=== PATIENT | female | born 1955 | race Caucasian/White ===

== ENCOUNTER 2019-10-13 04:47 | Inpatient (IN) ==
[2019-10-13 05:18] LABS: Basophils # (auto) 0.05 K/uL (0-0.2); Basophils % (auto) 0.6 %; Eosinophils # (auto) 0.34 K/uL (0-0.5); Eosinophils % (auto) 4.2 %; Hematocrit (blood only) 33.9 % (37-47); Immature Granulocytes # (auto) 0.02 K/uL (0.00-0.02); Immature Granulocytes % (auto) 0.2 %; Lymphocytes # (auto) 0.76 K/uL (1.2-3.4); Lymphocytes % (auto) 9.4 %; Mean Corpuscular Hemoglobin 27.3 pg (25-34); Mean Corpuscular Hgb Conc 29.5 g/dL (32-36); Mean Corpuscular Volume 92.6 fL (80-100); Mean Platelet Volume 9.9 fL (7.4-10.4); Monocytes # (auto) 0.59 K/uL (0.11-0.59); Monocytes % (auto) 7.3 %; Neutrophils # (auto) 6.29 K/uL (1.4-6.5); Neutrophils % (auto) 78.3 %; Nucleated RBC # (auto) 0.02 K/uL (0-0); Nucleated RBC % (auto) 0.3 %; Platelet Count 309 K/uL (130-400); RDW Coefficient of Variation 18.9 % (11.5-14.5); RDW Standard Deviation 64.2 fL (36.4-46.3); Red Blood Count 3.66 M/uL (4.2-5.4); White Blood Count 8.05 K/uL (4.8-10.8)
[2019-10-13 05:30] LABS: INR 2.1 (0.9-1.1); Partial Thromboplastin Ratio 1.2; Partial Thromboplastin Time 33.3 Seconds (21.0-31.0); Prothrombin Time 20.5 Seconds (9.0-12.0)
[2019-10-13 05:52] LABS: Alanine Aminotransferase 50 U/L (12-78); Albumin Level 2.9 gm/dl (3.4-5.0); Aspartate Aminotransferase 21 U/L (15-37); BUN Creatinine Ratio 23.1 (10-20); Blood Urea Nitrogen 64 mg/dl (7-18); Calcium 8.8 mg/dl (8.5-10.1); Carbon Dioxide 26 mmol/L (21-32); Chloride 100 mmol/L (98-107); Est GFR (Non-African American) 17.2; Glucose 99 mg/dl (70-99); Potassium 7.3 mmol/L (3.5-5.1); Sodium 131 mmol/L (136-145)
[2019-10-13 06:01] LABS: Albumin Globulin Ratio 0.7 (0.9-2); Alkaline Phosphatase 102 U/L (45-117); Bilirubin,Total 0.3 mg/dl (0.2-1); Globulin 4.2 gm/dl (2.5-4.0); NT Pro B Type Natriuretic Pept 7187 pg/ml (0-900); Total Protein 7.1 gm/dl (6.4-8.2); Troponin I < 0.015 ng/ml (0-0.045)
--- NOTE | 2019-10-13 06:10 | XRay Report ---
XR chest 1V portable CLINICAL HISTORY: Dyspnea COMPARISON STUDY: 08/02/2018 FINDINGS: Moderate cardiac enlargement. Parenchymal infiltrate medial right base. Components of pulmo nary vascular congestion. IMPRESSION: 1. Infiltrate medial right base. 2. Pulmonary vascular congestion versus mild congestive failure The above report was generated using voice recognition software. It may contain grammatical, syntax or spelling errors. Electronically signed by: Carlos Boyce M.D. 10/13/2019 6:08 AM
[2019-10-13] MEDS ORDERED: FUROSEMIDE 20 MG in SYRINGE 0 ML IV STA (06:38)
[2019-10-13] MEDS ORDERED: DEXTROSE 50% 50 ML SYRINGE IV STA ×2 (06:38→10:32)
[2019-10-13] MEDS ORDERED: INSULIN HUMAN REGULAR PER UNIT 10 UNITS in SYRINGE 9.9 ML IV STA ×2 (06:38→10:32)
--- NOTE | 2019-10-13 06:42 | Emergency Department Note ---
Entered by Kayy Vasquez acting as a scribe for History of Present Illness General Chief complaint: Shortness of Breath/Dyspnea Stated complaint: SHORT OF BREATH Time Seen by Provider: 10/13/19 04:50 History of Present Illness Provider complaint: shortness of breath Onset (ago): day(s) 2 Location: chest Quality: + other (shortness of breath) Associated symptoms: + other (Positive lightheadedness); no chest pain Treatments prior to arrival: other (BiPAP) The patient, who is a 64 year old female with a medical history of sleep apnea, cerebral vascular accident, and asthma, presents to the Emergency Room with complaints of shortness of breath that started two days ago. EMS states that the patient complained of lightheadedness but remained awake and alert during tr ansport. EMS reports that the patient denies chest pain. The patient expresses that both of her hands feel "jumpy". EMS notes that the patient started off wheezy when they arrived to [facility] and then became raspy en route. EMS reports that when they arrived the patient was at 84% on 4L but once she was on BiPAP the patient reached the mid 90s. The patient confirms that she has been at [facility] for 14 months. Home Medications Home Medications Medication Instructions Recorded Confirmed Type amiodarone 200 mg PO Q12 08/02/18 10/13/19 History aspirin 81 mg PO HS 08/02/18 10/13/19 History atorvastatin 40 mg PO QPM 08/02/18 10/13/19 History calcium carbonate 1,075 mg PO Q8 PRN 08/02/18 10/13/19 History fluticasone propion-salmeterol 1 puff INHALATION BID 08/02/18 10/13/19 History [Advair Diskus] fluticasone propionate 2 spray INTRANASAL HS 08/02/18 10/13/19 History gabapentin 600 mg PO TID 08/02/18 10/13/19 History lisinopril 20 mg PO Q12 08/02/18 10/13/19 History magnesium oxide 400 mg PO QAM 08/02/18 10/13/19 History metformin 1,000 mg PO BIDM 08/02/18 10/13/19 History multivitamin with minerals 1 tab PO QAM 08/02/18 10/13/19 History [Multiple Vitamin-Minerals] sitagliptin [Januvia] 100 mg PO QAM 08/02/18 10/13/19 History Lactobacillus acidoph-L.bulgar 1 tab PO DAILY 10/13/19 10/13/19 History [Lactinex] acetaminophen [Tylenol] 325 mg PO Q6 PRN MDD 3gm/24hr 10/13/19 10/13/19 History acetaminophen [Tylenol] 325 mg PO Q6H PRN MDD 3gm/24hr 10/13/19 10/13/19 History albuterol sulfate [Ventolin HFA] 2 puff INHALATION Q4 PRN 10/13/19 10/13/19 History amoxicillin-pot clavulanate 1 tab PO BID 10/13/19 10/13/19 History carbamide peroxide [Debrox] 2 drp OTB UD 10/13/19 10/13/19 History insulin lispro [Humalog U-100 1 sliding scale dose SUBCUT 10/13/19 10/13/19 History Insulin] USEASDIRECTD PRN ipratropium-albuterol 3 ml INHALATION . EVERY 2 HOURS PRN 10/13/19 10/13/19 History ipratropium-albuterol 3 ml INHALATION QID 10/13/19 10/13/19 History levothyroxine 112 mcg PO QPM 10/13/19 10/13/19 History metoprolol tartrate 37.5 mg PO BID 10/13/19 10/13/19 History montelukast 10 mg PO QAM 10/13/19 10/13/19 History oxycodone 5 mg PO TID 10/13/19 10/13/19 History sennosides-docusate sodium 1 tab-cap PO BID 10/13/19 10/13/19 History [Senokot-S] warfarin 3 mg PO HS 10/13/19 10/13/19 History Allergies Allergy/AdvReac Type Severity Reaction Status Date / Time Iodinated Contrast Media Allergy Intermediate HIVES Verified 10/13/19 05:53 latex Allergy Unknown LOW LEVEL Verified 10/13/19 05:53 LATEX ALLERGY Quinolones Allergy Unknown DR HICKS Verified 10/13/19 05:53 ASKED THAT ALLERGY BE ADDED 07/31/08 Sulfa (Sulfonamide Allergy Unknown HIVES Verified 10/13/19 05:53 Antibiotics) vancomycin Allergy Unknown HIVES, GI Verified 10/13/19 05:53 UPSET Past Med/Surg History Medical History A-fib Asthma (Chronic) CVA (cerebral vascular accident) (Acute) DM type 2 (diabetes mellitus, type 2) (Chronic) History of left shoulder replacement (Acute) Hypertension (Chronic) Left cervical radiculopathy (Acute) Morbid obesity with body mass index of 50 or higher (Chronic) Osteoarthritis (Chronic) Sleep apnea (Chronic) "on cpap" Stroke-like symptoms Surgical History Status post bilateral total hip replacement (Chronic) Family History Other Family history non-contributory Social History Preferred Language: Rwandan Communication Ability: Effective Development And Housing Director Required: No Beliefs That Will Affect Care: None marital status: Single Current Living Situation: Alone Feels Safe at Home: Yes Smoking Status: Never smoker Hx Alcohol Use: No Hx Substance Use: No Review of Systems See HPI for pertinent positives & negatives. and A total of 10 systems reviewed and were otherwise negative Physical Exam Vital Signs Vital Signs - 24 hr 10/13/19 04:50 10/13/19 05:33 10/13/19 05:34 Temperature 36.6 C Temperature Source Oral Pulse Rate 52 L 56 L 51 L Pulse Rate from SpO2 Sensor 52 L 51 L Respiratory Rate 19 20 21 Blood Pressure 97/48 L 82/43 L 89/40 L Blood Pressure Mean 64 60 47 Pulse Oximetry 85 L 86 L 94 Oxygen Delivery Method Room Air Nasal Cannula Oxymask Oxygen Flow Rate 0 4 4 Sepsis Recent Fever Within 48 Hours No Sepsis New/Unexplained Change in Mental Status No Sepsis Action Taken by Nursing No Action Required Oxygen Flow Rate - Titration 4 Pulse Oximetry Post Tiitration 94 10/13/19 06:03 Temperature Temperature Source Pulse Rate 51 L Pulse Rate from SpO2 Sensor 51 L Respiratory Rate 21 Blood Pressure 103/55 L Blood Pressure Mean 76 Pulse Oximetry 94 Oxygen Delivery Method Oxymask Oxygen Flow Rate 4 Sepsis Recent Fever Within 48 Hours Sepsis New/Unexplained Change in Mental Status Sepsis Action Taken by Nursing Oxygen Flow Rate - Titration Pulse Oximetry Post Tiitration General: Morbidly obese female in moderate to severe respiratory distress especially when speaking HEENT: Head - normocephalic and atraumatic Pupils are equal, round, and reactive to light. Extraocular eye muscles are intact, and sclera are anicteric. Nose - moist nasal mucosa without discharge. Mouth - moist buccal mucosa. Oropharynx is nonerythematous and there is no tonsillar exudate or edema noted. Neck: Supple; no JVD, nuchal rigidity, cervical lymphadenopathy. Heart: Bradycardic rate and regular rhythm. There is a normal S1 and S2 with no murmurs, clicks, or gallops appreciated. Lungs: Diffuse rales in all lung fraser with minimal air exchange. Abdomen: Soft, completely nontender, nondistended, with good bowel sounds. There are no palpable pulsatile masses or hepatosplenomegaly. There is no guarding, rigidity, or rebound noted. Extremities: No evidence of cyanosis or clubbing. There are easily palpable peripheral pulses. Wound on the right lower extremity that she explains has been there for 16 years. + 3 to 4 pitting edema. Skin: warm and dry with good turgor and no rashes. Course Course 0456: Past medical records reviewed. The patient was evaluated in room A10. A complete history and physical exam was performed. A twelve-lead EKG was obtained as described above. The patient was observed on the air sampling and monitoring and pulse oximeter. She remained in a sinus bradycardia on the monitor. 0458: Oxygen dropped to 85% - 83% when she was taken off the oxygen. The patient will have a portable chest x-ray 0051: I reassessed the patient and noticed desaturation to 85% while on nasal cannula while she was sleeping. The patient was placed on an oxy- mask which has raised it back to 96%. 0519: I reviewed the patient's case with Dr. Barnett, [facility] hospitalist. He will evaluate the patient for further management. 0526: I reassessed the patient who's blood pressure was at a 103/55. The patient expresses that she feels much better. Consultations Consultation #1: I reviewed the patient's case with Dr. Barnett, [facility] hospitalist. He will evaluate the patient for further management. Time: 05:19 Critical Care Time Critical Care Time: Yes Total Critical Care Time: 45 I have personally spent 45 minutes of critical care time in the direct management of this patient. This includes bedside care, interpretation of diagnostic studies, and testing, discussion with consultants, patient, and family members, and other required patient management activities. This 45 minutes is in excess of all separately billable procedures. Medical Decision Making Differential Diagnosis Differential diagnosis includes: congestive heart failure, pulmonary embolism, flash pulmonary edema, as well as others were entertained. Medical Records Attestation: I reviewed the patient's medical records. Home Medications Current Medication List: was personally reviewed by me Laboratory Data Attestation: I reviewed the patient's lab results. Result diagrams: 10/13/19 04:23 10/13/19 04:23 Lab Results 10/13/19 10/13/19 10/13/19 Range/Units 04:23 04:23 04:23 WBC 8.05 (4.8-10.8) K/uL RBC 3.66 L (4.2-5.4) M/uL Hgb 10.0 L (12.0-16.0) g/dL Hct 33.9 L (37-47) % MCV 92.6 (80-100) fL MCH 27.3 (25-34) pg MCHC 29.5 L (32-36) g/dL RDW Std Deviation 64.2 H (36.4-46.3) fL RDW Coeff of Mehnaz 18.9 H (11.5-14.5) % Plt Count 309 (130-400) K/uL MPV 9.9 (7.4-10.4) fL Immature Gran % (Auto) 0.2 % Neut % (Auto) 78.3 % Lymph % (Auto) 9.4 % Miller % (Auto) 7.3 % Eos % (Auto) 4.2 % Baso % (Auto) 0.6 % Immature Gran # (Auto) 0.02 (0.00-0.02) K/uL Neut # (Auto) 6.29 (1.4-6.5) K/uL Lymph # (Auto) 0.76 L (1.2-3.4) K/uL Miller # (Auto) 0.59 (0.11-0.59) K/uL Eos # (Auto) 0.34 (0-0.5) K/uL Baso # (Auto) 0.05 (0-0.2) K/uL Absolute Nucleated RBC 0.02 H (0-0) K/uL Nucleated RBC % (auto) 0.3 % PT 20.5 H (9.0-12.0) Seconds INR 2.1 H (0.9-1.1) APTT 33.3 H (21.0-31.0) Seconds PTT Ratio 1.2 Sodium 131 L (136-145) mmol/L Potassium 7.3 H* (3.5-5.1) mmol/L Chloride 100 (98-107) mmol/L Carbon Dioxide 26 (21-32) mmol/L Anion Gap 7.0 (3-11) BUN 64 H (7-18) mg/dl Creatinine 2.77 H (0.6-1.2) mg/dl Est Cr Clr Drug Dosing Not Reportable Est GFR ( Amer) 20.0 Est GFR (Non-Af Amer) 17.2 BUN/Creatinine Ratio 23.1 H (10-20) Glucose 99 (70-99) mg/dl Calcium 8.8 (8.5-10.1) mg/dl Total Bilirubin 0.3 (0.2-1) mg/dl AST 21 (15-37) U/L ALT 50 (12-78) U/L Alkaline Phosphatase 102 (45-117) U/L Troponin I < 0.015 (0-0.045) ng/ml NT-Pro-B Natriuret Pep 7187 H (0-900) pg/ml Total Protein 7.1 (6.4-8.2) gm/dl Albumin 2.9 L (3.4-5.0) gm/dl Globulin 4.2 H (2.5-4.0) gm/dl Albumin/Globulin Ratio 0.7 L (0.9-2) Imaging Data Attestation: I personally reviewed and interpreted this imaging study as follows: My Impression: 1V Chest XRAY Comparison to July 2018 - significant pulmonary edema with cardiomegaly concerning for heart failure ECG Data Attestation: I personally reviewed and interpreted this ECG as follows: Indication: + SOB/dyspnea Rate (beats per minute): 52 Rhythm: + sinus bradycardia ECG Intervals/blocks: + First degree AV block ECG Findings: + Other (No ischemia; No ectopy) Blood Pressure Blood Pressure Findings: Elevated blood pressure Blood Pressure Disposition: Referred to patients primary care provider MDM Narrative The patient, who is a 64 year old female with a medical history of sleep apnea, cerebral vascular accident, and asthma, presents to the Emergency Room with complaints of shortness of breath that started two days ago. The patient has significant orthopnea and respiratory distress with speaking. On physical exam, the patient has diffuse rales within her lung fraser and significant lower extremity edema. The patient has a BNP greater than 7000. Her presentation seems consistent with congestive heart failure. Without supplemental oxygen, the patient has O2 saturations in the low 80s. The patient is noted to have a potassium greater than 7. She also has evidence of acute kidney injury with a creatinine which has doubled from her baseline. The patient is hemodynamically stable. I discussed the case with the [facility] Hospitalist and they will evaluate for further management. Impression & Plan Respiratory failure, Hypoxia, Pulmonary edema, Hyperkalemia Discharge Plan Visit Data Chief Complaint: Shortness of Breath/Dyspnea Stated Complaint: SHORT OF BREATH ED Provider: Adilene Azevedo Discharge Problem: Respiratory failure, Hypoxia, Pulmonary edema, Hyperkalemia Patient Disposition: Being Evaluated by Hospitalist Forms Stand Alone Forms: My [facility] Prescriptions Prescriptions: No Action fluticasone propion-salmeterol [Advair Diskus] 250-50 mcg/dose blister with device 1 puff Inhalation BID RF: 0 gabapentin 600 mg tablet 600 mg PO TID RF: 0 amiodarone 200 mg tablet 200 mg PO Q12 RF: 0 metformin 1,000 mg tablet 1,000 mg PO BIDM RF: 0 fluticasone propionate 50 mcg/actuation spray,suspension 2 spray Intranasal HS RF: 0 lisinopril 20 mg tablet 20 mg PO Q12 RF: 0 Januvia 100 mg tablet 100 mg PO QAM RF: 0 atorvastatin 40 mg tablet 40 mg PO QPM RF: 0 aspirin 81 mg Tablet,Delayed Release (Dr/Ec) 81 mg PO HS RF: 0 magnesium oxide 400 mg (241.3 mg magnesium) Tablet 400 mg PO QAM RF: 0 multivitamin with minerals [Multiple Vitamin-Minerals] Tablet 1 tab PO QAM RF: 0 calcium carbonate 320 mg calcium (750 mg) Tablet,Chewable 1,075 mg PO Q8 PRN (Reason: Dyspepsia) RF: 0 levothyroxine 112 mcg tablet 112 mcg PO QPM RF: 0 Lactinex 1 million cell Tablet,Chewable 1 tab PO DAILY RF: 0 montelukast 10 mg Tablet 10 mg PO QAM RF: 0 metoprolol tartrate 25 mg Tablet 37.5 mg PO BID RF: 0 oxycodone 5 mg tablet 5 mg PO TID RF: 0 warfarin 3 mg tablet 3 mg PO HS RF: 0 acetaminophen [Tylenol] 325 mg Tablet 325 mg PO Q6 MDD 3gm/24hr PRN (Reason: Pain) RF: 0 acetaminophen [Tylenol] 325 mg Tablet 325 mg PO Q6H MDD 3gm/24hr PRN (Reason: temp>100) RF: 0 sennosides-docusate sodium [Senokot-S] 8.6-50 mg Tablet 1 tab-cap PO BID RF: 0 amoxicillin-pot clavulanate 875-125 mg tablet 1 tab PO BID RF: 0 albuterol sulfate [Ventolin HFA] 90 mcg/actuation HFA aerosol inhaler 2 puff INHALATION Q4 PRN (Reason: Shortness Of Breath Or Wheezing) RF: 0 ipratropium-albuterol 0.5 mg-3 mg(2.5 mg base)/3 mL Solution For Nebulization 3 ml INHALATION QID RF: 0 ipratropium-albuterol 0.5 mg-3 mg(2.5 mg base)/3 mL Solution For Nebulization 3 ml INHALATION . EVERY 2 HOURS PRN (Reason: Shortness Of Breath Or Wheezing) RF: 0 insulin lispro [Humalog U-100 Insulin] 100 unit/mL Solution 1 sliding scale dose SUBCUT USEASDIRECTD PRN (Reason: elevated bs) RF: 0 carbamide peroxide [Debrox] 6.5 % Drops 2 drp OTB UD RF: 0 Referrals Referrals: Divide,Briseida [Primary Care Provider] - Discharge Problem: Respiratory failure Qualifiers: Chronicity: acute Respiratory failure complication: hypoxia Qualified Code(s): J96.01 - Acute respiratory failure with hypoxia Pulmonary edema Qualifiers: Chronicity: acute Qualified Code(s): J81.0 - Acute pulmonary edema The scribe's documentation has been prepared under my direction and personally reviewed by me in its entirety. I confirm that the note above accurately reflects all work, treatment, procedures, and medical decision making performed by me.
[2019-10-13] MEDS ORDERED: FUROSEMIDE 40 MG/4 ML VIAL IV ONE (06:44)
[2019-10-13] MEDS ORDERED: NovoLIN-R INSULIN PER UNIT CHARGE ONE (06:45)
--- NOTE | 2019-10-13 06:47 | History & Physical Report ---
Date of Service October 13, 2019 Assessment & Plan (1) Acute and chronic respiratory failure with hypoxia: Admit to PCU Maintained on oxygen mask currently Nebs ordered. Pulmonary edema noted on CXR Will check CT chest as patient had cough looking for underlying pneumonitis Check echo to evaluate EF. (2) Hyperkalemia: Lasix 20mg IV now Insulin 10 units with Dextrose recheck BMP in 4 hours (3) Acute kidney failure: Hold lisinopril Hold Metformin Place Heard to monitor urine output Check CT scan w/o to look for obstruction (4) Afib: Currently in NSR INR therapeutic at 2.1 daily INR Continue Amiodarone (5) DM type 2 (diabetes mellitus, type 2): ADA diet I ordered sliding scale for now. (6) Asthma: No obvious exacerbation Albuterol nebs q 4 hours prn Duonebs Q 6 hours scheduled. (7) Morbid obesity with body mass index of 50 or higher: History of Present Illness 64 y/o female is sent to the ED from [facility] due to SOB and hypoxia with reports of pox into the 70%. Patient tells me that she was having SOB throughout yesterday. No chest pain, No F/C, no N/V/D, No dysuria, No flu-like symptoms. + non-productive cough. She is found to have hyperkalemia with K of 7.3 and DIANNE with creat 2.77 with previous creat 1.1. She is therapeutic on warfarin with INR 2.1 Primary Care Provider: [facility] Allergies Allergy/AdvReac Type Severity Reaction Status Date / Time Iodinated Contrast Media Allergy Intermediate HIVES Verified 10/13/19 05:53 latex Allergy Unknown LOW LEVEL Verified 10/13/19 05:53 LATEX ALLERGY Quinolones Allergy Unknown DR HICSK Verified 10/13/19 05:53 ASKED THAT ALLERGY BE ADDED 07/31/08 Sulfa (Sulfonamide Allergy Unknown HIVES Verified 10/13/19 05:53 Antibiotics) vancomycin Allergy Unknown HIVES, GI Verified 10/13/19 05:53 UPSET Home Medications Home Medications Medication Instructions Recorded Confirmed Type amiodarone 200 mg PO Q12 08/02/18 10/13/19 History aspirin 81 mg PO HS 08/02/18 10/13/19 History atorvastatin 40 mg PO QPM 08/02/18 10/13/19 History calcium carbonate 1,075 mg PO Q8 PRN 08/02/18 10/13/19 History fluticasone propion-salmeterol 1 puff INHALATION BID 08/02/18 10/13/19 History [Advair Diskus] fluticasone propionate 2 spray INTRANASAL HS 08/02/18 10/13/19 History gabapentin 600 mg PO TID 08/02/18 10/13/19 History lisinopril 20 mg PO Q12 08/02/18 10/13/19 History magnesium oxide 400 mg PO QAM 08/02/18 10/13/19 History metformin 1,000 mg PO BIDM 08/02/18 10/13/19 History multivitamin with minerals 1 tab PO QAM 08/02/18 10/13/19 History [Multiple Vitamin-Minerals] sitagliptin [Januvia] 100 mg PO QAM 08/02/18 10/13/19 History Lactobacillus acidoph-L.bulgar 1 tab PO DAILY 10/13/19 10/13/19 History [Lactinex] acetaminophen [Tylenol] 325 mg PO Q6 PRN MDD 3gm/24hr 10/13/19 10/13/19 History acetaminophen [Tylenol] 325 mg PO Q6H PRN MDD 3gm/24hr 10/13/19 10/13/19 History albuterol sulfate [Ventolin HFA] 2 puff INHALATION Q4 PRN 10/13/19 10/13/19 History amoxicillin-pot clavulanate 1 tab PO BID 10/13/19 10/13/19 History carbamide peroxide [Debrox] 2 drp OTB UD 10/13/19 10/13/19 History insulin lispro [Humalog U-100 1 sliding scale dose SUBCUT 10/13/19 10/13/19 History Insulin] USEASDIRECTD PRN ipratropium-albuterol 3 ml INHALATION . EVERY 2 HOURS PRN 10/13/19 10/13/19 History ipratropium-albuterol 3 ml INHALATION QID 10/13/19 10/13/19 History levothyroxine 112 mcg PO QPM 10/13/19 10/13/19 History metoprolol tartrate 37.5 mg PO BID 10/13/19 10/13/19 History montelukast 10 mg PO QAM 10/13/19 10/13/19 History oxycodone 5 mg PO TID 10/13/19 10/13/19 History sennosides-docusate sodium 1 tab-cap PO BID 10/13/19 10/13/19 History [Senokot-S] warfarin 3 mg PO HS 10/13/19 10/13/19 History Past Med/Surg History Medical History A-fib Asthma (Chronic) CVA (cerebral vascular accident) (Acute) DM type 2 (diabetes mellitus, type 2) (Chronic) History of left shoulder replacement (Acute) Hypertension (Chronic) Left cervical radiculopathy (Acute) Morbid obesity with body mass index of 50 or higher (Chronic) Osteoarthritis (Chronic) Sleep apnea (Chronic) "on cpap" Stroke-like symptoms Surgical History Status post bilateral total hip replacement (Chronic) Family History Other Family history non-contributory Social History Preferred Language: Pashto Communication Ability: Effective Debug Technician Required: No Beliefs That Will Affect Care: None marital status: Single Current Living Situation: Alone Feels Safe at Home: Yes Smoking Status: Never smoker Hx Alcohol Use: No Hx Substance Use: No Review of Systems Review of Systems: All systems reviewed & are unremarkable except as noted in HPI & below Physical Exam Physical Exam: General- adult female, NAD Head- atraumatic Eyes- PERRL, EOMI, anicteric ENT- oropharynx clear Neck- supple, no JVD, no adenopathy, no thyromegaly. Lungs- Decreased breath sounds at the bases with few crackles in the lower fraser. Heart- regular rhythm; no murmur, no gallop, no rub appreciated Abdomen- normal bowel sounds, soft, nontender. Extremities- + 3 pitting edema b/l lower ext. no calf tenderness. Neuro- alert, oriented x 3; PERRL, EOMI; proposition player II-XII grossly intact, Non-focal. Skin- warm & dry Results & Data Vital Signs (Past 12 Hours) Vital Signs Temp Pulse Resp BP Pulse Ox 10/13/19 06:03 51 L 21 103/55 L 94 10/13/19 05:34 51 L 21 89/40 L 94 10/13/19 05:33 56 L 20 82/43 L 86 L 10/13/19 04:50 36.6 C 52 L 19 97/48 L 85 L Laboratory Results Laboratory Results WBC 8.05 K/uL (4.8-10.8) 10/13/19 04:23 RBC 3.66 M/uL (4.2-5.4) L 10/13/19 04:23 Hgb 10.0 g/dL (12.0-16.0) L 10/13/19 04:23 Hct 33.9 % (37-47) L 10/13/19 04:23 MCV 92.6 fL (80-100) 10/13/19 04:23 MCH 27.3 pg (25-34) 10/13/19 04:23 MCHC 29.5 g/dL (32-36) L 10/13/19 04:23 RDW Std Deviation 64.2 fL (36.4-46.3) H 10/13/19 04:23 RDW Coeff of Mehnaz 18.9 % (11.5-14.5) H 10/13/19 04:23 Plt Count 309 K/uL (130-400) 10/13/19 04:23 MPV 9.9 fL (7.4-10.4) 10/13/19 04:23 Immature Gran % (Auto) 0.2 % 10/13/19 04:23 Neut % (Auto) 78.3 % 10/13/19 04:23 Lymph % (Auto) 9.4 % 10/13/19 04:23 [place] % (Auto) 7.3 % 10/13/19 04:23 Eos % (Auto) 4.2 % 10/13/19 04:23 Baso % (Auto) 0.6 % 10/13/19 04:23 Immature Gran # (Auto) 0.02 K/uL (0.00-0.02) 10/13/19 04:23 Neut # (Auto) 6.29 K/uL (1.4-6.5) 10/13/19 04:23 Lymph # (Auto) 0.76 K/uL (1.2-3.4) L 10/13/19 04:23 [place] # (Auto) 0.59 K/uL (0.11-0.59) 10/13/19 04:23 Eos # (Auto) 0.34 K/uL (0-0.5) 10/13/19 04:23 Baso # (Auto) 0.05 K/uL (0-0.2) 10/13/19 04:23 Absolute Nucleated RBC 0.02 K/uL (0-0) H 10/13/19 04:23 Nucleated RBC % (auto) 0.3 % 10/13/19 04:23 PT 20.5 Seconds (9.0-12.0) H 10/13/19 04:23 INR 2.1 (0.9-1.1) H 10/13/19 04:23 APTT 33.3 Seconds (21.0-31.0) H 10/13/19 04:23 PTT Ratio 1.2 10/13/19 04:23 Sodium 131 mmol/L (136-145) L 10/13/19 04:23 Potassium 7.3 mmol/L (3.5-5.1) H* 10/13/19 04:23 Chloride 100 mmol/L (98-107) 10/13/19 04:23 Carbon Dioxide 26 mmol/L (21-32) 10/13/19 04:23 Anion Gap 7.0 (3-11) 10/13/19 04:23 BUN 64 mg/dl (7-18) H 10/13/19 04:23 Creatinine 2.77 mg/dl (0.6-1.2) H 10/13/19 04:23 Est Cr Clr Drug Dosing Not Reportable 10/13/19 04:23 Est GFR ( Amer) 20.0 10/13/19 04:23 Est GFR (Non-Af Amer) 17.2 10/13/19 04:23 BUN/Creatinine Ratio 23.1 (10-20) H 10/13/19 04:23 Glucose 99 mg/dl (70-99) 10/13/19 04:23 Calcium 8.8 mg/dl (8.5-10.1) 10/13/19 04:23 Total Bilirubin 0.3 mg/dl (0.2-1) 10/13/19 04:23 AST 21 U/L (15-37) 10/13/19 04:23 ALT 50 U/L (12-78) 10/13/19 04:23 Alkaline Phosphatase 102 U/L (45-117) 10/13/19 04:23 Troponin I < 0.015 ng/ml (0-0.045) 10/13/19 04:23 NT-Pro-B Natriuret Pep 7187 pg/ml (0-900) H 10/13/19 04:23 Total Protein 7.1 gm/dl (6.4-8.2) 10/13/19 04:23 Albumin 2.9 gm/dl (3.4-5.0) L 10/13/19 04:23 Globulin 4.2 gm/dl (2.5-4.0) H 10/13/19 04:23 Albumin/Globulin Ratio 0.7 (0.9-2) L 10/13/19 04:23 Code Status & VTE Plan VTE Prophylaxis Plan VTE Prophylaxis will be ordered: Yes PG Care Time/CCT Total # of Minutes Spent Total Time Spent: 60 Total Time Spent with Patient: Total time spent is greater than 50% in coordination of care (as documented) at patient's floor/unit and/or counseling patient:
[2019-10-13] MEDS ORDERED: cefTRIAXone SODIUM 1,000 MG in DEXTROSE 5% 50 ML IV SCH (07:15)
[2019-10-13] MEDS ORDERED: SODIUM CHLORIDE 0.9% 1000ML 1,000 ML IV SCH (07:15)
[2019-10-13] MEDS ORDERED: AZITHROMYCIN 500 MG in DEXTROSE 5% 250 ML IV SCH (07:15)
[2019-10-13] MEDS ORDERED: cefTRIAXone SODIUM 1000MG/50ML D5W IV ONE (07:57)
[2019-10-13] MEDS ORDERED: OXYCODONE/ACETAMINOPHEN 10-325 TAB PO PRN (08:46)
[2019-10-13] MEDS ORDERED: GLUCAGON FOR INJ 1 MG VIAL SQ PRN (08:46)
[2019-10-13] MEDS ORDERED: OXYCODONE/ACETAMINOPHEN 5mg/325mg TAB PO PRN (08:46)
[2019-10-13] MEDS ORDERED: GLUCOSE 40% GEL 15 GM TUBE PO PRN (08:46)
[2019-10-13] MEDS ORDERED: GLUCOSE 10 TABS/TUBE PO PRN (08:46)
[2019-10-13] MEDS ORDERED: ACETAMINOPHEN 325 MG TAB PO PRN (08:46)
[2019-10-13] MEDS ORDERED: CARBOHYDRATES FOR HYPOGLYCEMIA PO PRN (08:46)
[2019-10-13] MEDS ORDERED: ONDANSETRON INJ 2 MG/ML 2 ML VIAL IV PRN (08:46)
[2019-10-13] MEDS ORDERED: DEXTROSE 50% 50 ML SYRINGE IV PRN (08:46)
[2019-10-13] MEDS ORDERED: CALCIUM GLUCONATE 10% 1,000 MG in SODIUM CHLORIDE 0.9% 50 ML IV STA (09:20)
[2019-10-13 09:30] LABS: Estimated Average Glucose 114 mg/dl; Hemoglobin A1C 5.6 % (4.5-5.6)
[2019-10-13 09:49] LABS: BUN Creatinine Ratio 23.6 (10-20); Calcium 8.7 mg/dl (8.5-10.1); Creatinine Clr Calc Pharmacy 30.5 ml/min; Est GFR (African American) 19.1; Est GFR (Non-African American) 16.5; Potassium 7.3 mmol/L (3.5-5.1)
--- NOTE | 2019-10-13 09:57 | Hospitalist Progress Note ---
Date of Service October 13, 2019 Assessment & Plan (1) Acute and chronic respiratory failure with hypoxia: At bedside today, patient deteriorated rapidly with decrease in mentation; she was unable to follow simple commands. Suspected lack of oxygenation to brain. BiPAP was placed ICU was contacted for transfer and more aggressive care measures An ABG was ordered STAT which showed significant Acidosis with CO2 retention consistent with Respiratory Acidosis. Lactate was ordered which was elevated I was able to speak to older brother and family friend who provided consent for treatments (2) Hyperkalemia: She did receive Lasix in ED. This morning, ordered Calcium Gluconate for cardiac membrane stabilization Ordered Insulin with D5W for temporary effect to drive potassium into cells Nephro consult was ordered for dialysis (3) Acute kidney failure: As above Undetermined etiology (4) Afib: She was bradycardic this AM On Warfarin 3mg PO daily (5) DM type 2 (diabetes mellitus, type 2): Was stable with glucose WNL Insulin per ICU protocol curently Hgb A1C was 5.6 (6) Asthma: Chronic currently intubated (7) Morbid obesity with body mass index of 50 or higher: BMI of 73 putting patient's health into fragile state Noted to have 30kg weight gain over past year from review of records Supervising Physician Co-Signing Physician Notes Attending attestation Pt seen and examined in concert with Dr. Evans. In agreement with the documented findings as noted in the resident documentation with any exceptions or additions as noted here. Evaluated at bedside with deteriorating respiratory and cognitive status. Endorsed shortness of breath and h/o intubation previously but reports "it doesn't seem like time for that". Similar response when discussing acute renal failure and elevated potassium. On examination, unswallowed food bolus from > 15 minutes prior still in mouth. Speaking approx 2 words per breath, rapid RR in the 20s and visible accessory muscle use. Diffuse rales audible with wheezing and overall distant breath sounds. S1/S2 nl RRR no MCG. 2+ pitting edema b/l LE to mid [place]. Variable LOC. 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 ABG as noted. Furosemide IV 40mg x 1. Strict I/O/weights Suspected acute renal failure with hyperkalemia s/p insulin R in ED - persistent elevation - neprhology consultation - repeat insulin/dextrose, add calcium gluconate, continue IV fluids, trend BMP in 4 hours Atrial fibrillation - continue warfarin at present regimen, amiodarone DMII - glucose mgmt w/ bolus insulin for hyperkalemia Else see resident documentation as noted. Subjective Rekha notes feeling dizzy and continued shortness of breath. No chest pain, nausea, vomiting, fever or chills currently. She notes feeling dyspneic past 1- 2 days. She does not endorse any kidney disease. When returning to discuss further needs/wishes for dialysis and other aggressive measures, patient had difficulty answering questions. She was not swallowing her breakfast or able to feed herself. BiPAP was placed but still unable to follow simple commands. ICU team was consulted and then patient was transferred for more aggressive management. Later, I did reach older brother and family friends by phone, whom provided consent for treatments. Review of Systems Review of Systems: Unobtainable due to cognitive status Physical Exam Constitutional: + ill appearing and + morbidly obese Eyes: PERRL, conjunctivae normal, anicteric sclerae ENMT: visible clear secretions from mouth Respiratory: + labored breathing, + uses accessory muscles and + cough Auscultation: + diminished lung sounds and + crackles speaks in short sentences Cardiovascular: distant heart sounds Neurologic: moves all extremities and + confused Psychiatric: Orientation: alert and oriented x 3 Results & Data Vital Signs (Past 12 Hours) Vital Signs Temp Pulse Pulse Resp BP BP Pulse Ox 10/13/19 08:48 36.6 C 48 L 28 H 94/62 L 94 10/13/19 07:54 49 L 24 94 10/13/19 07:30 25 H 93 10/13/19 07:00 60 18 86 L 10/13/19 06:35 50 L 21 82/56 L 93 10/13/19 06:33 50 L 25 H 93 10/13/19 06:30 50 L 18 78/48 L 91 10/13/19 06:03 51 L 21 103/55 L 94 10/13/19 05:34 51 L 21 89/40 L 94 10/13/19 05:33 56 L 20 82/43 L 86 L 10/13/19 04:50 36.6 C 52 L 19 97/48 L 85 L Laboratory Results Laboratory Results - last 24 hr 10/13/19 10/13/19 10/13/19 04:23 04:23 04:23 WBC 8.05 RBC 3.66 L Hgb 10.0 L Hct 33.9 L MCV 92.6 MCH 27.3 MCHC 29.5 L RDW Std Deviation 64.2 H RDW Coeff of Mehnaz 18.9 H Plt Count 309 MPV 9.9 Immature Gran % (Auto) 0.2 Neut % (Auto) 78.3 Lymph % (Auto) 9.4 Hooker % (Auto) 7.3 Eos % (Auto) 4.2 Baso % (Auto) 0.6 Immature Gran # (Auto) 0.02 Neut # (Auto) 6.29 Lymph # (Auto) 0.76 L Hooker # (Auto) 0.59 Eos # (Auto) 0.34 Baso # (Auto) 0.05 Absolute Nucleated RBC 0.02 H Nucleated RBC % (auto) 0.3 PT 20.5 H INR 2.1 H APTT 33.3 H PTT Ratio 1.2 Sample Site POC pH POC pCO2 POC pO2 POC HCO3 POC Total CO2 POC Base Excess ABG pH ABG pCO2 ABG pO2 ABG HCO3 POC ABG O2 Sat ABG O2 Saturation ABG Base Excess Darrel Test Barometric Pressure Oxygen Given O2 Delivery Device POC O2 Rate POC FiO2 Tidal Volume PEEP Sodium 131 L Potassium 7.3 H* Chloride 100 Carbon Dioxide 26 Anion Gap 7.0 BUN 64 H Creatinine 2.77 H Est Cr Clr Drug Dosing Not Reportable Est GFR ( Amer) 20.0 Est GFR (Non-Af Amer) 17.2 BUN/Creatinine Ratio 23.1 H Glucose 99 POC Glucose Estimat Average Glucose Hemoglobin A1c Lactate Calcium 8.8 Phosphorus Magnesium Total Bilirubin 0.3 AST 21 ALT 50 Alkaline Phosphatase 102 Ammonia Troponin I < 0.015 NT-Pro-B Natriuret Pep 7187 H Total Protein 7.1 Albumin 2.9 L Globulin 4.2 H Albumin/Globulin Ratio 0.7 L Procalcitonin TSH Free T4 Ur Random Creatinine Ur Random Sodium Hep Bs Antigen Hep Bs Antibody Hep Bs Antibody, Quant 10/13/19 10/13/19 10/13/19 04:23 04:23 08:54 WBC RBC Hgb Hct MCV MCH MCHC RDW Std Deviation RDW Coeff of Mehnaz Plt Count MPV Immature Gran % (Auto) Neut % (Auto) Lymph % (Auto) Hooker % (Auto) Eos % (Auto) Baso % (Auto) Immature Gran # (Auto) Neut # (Auto) Lymph # (Auto) Hooker # (Auto) Eos # (Auto) Baso # (Auto) Absolute Nucleated RBC Nucleated RBC % (auto) PT INR APTT PTT Ratio Sample Site POC pH POC pCO2 POC pO2 POC HCO3 POC Total CO2 POC Base Excess ABG pH ABG pCO2 ABG pO2 ABG HCO3 POC ABG O2 Sat ABG O2 Saturation ABG Base Excess Darrel Test Barometric Pressure Oxygen Given O2 Delivery Device POC O2 Rate POC FiO2 Tidal Volume PEEP Sodium Potassium Chloride Carbon Dioxide Anion Gap BUN Creatinine Est Cr Clr Drug Dosing Est GFR ( Amer) Est GFR (Non-Af Amer) BUN/Creatinine Ratio Glucose POC Glucose 94 Estimat Average Glucose 114 Hemoglobin A1c 5.6 Lactate Calcium Phosphorus Magnesium Total Bilirubin AST ALT Alkaline Phosphatase Ammonia Troponin I NT-Pro-B Natriuret Pep Total Protein Albumin Globulin Albumin/Globulin Ratio Procalcitonin 0.13 TSH Free T4 Ur Random Creatinine Ur Random Sodium Hep Bs Antigen Hep Bs Antibody Hep Bs Antibody, Quant 10/13/19 10/13/19 10/13/19 09:16 09:35 09:35 WBC RBC Hgb Hct MCV MCH MCHC RDW Std Deviation RDW Coeff of Mehnaz Plt Count MPV Immature Gran % (Auto) Neut % (Auto) Lymph % (Auto) Hooker % (Auto) Eos % (Auto) Baso % (Auto) Immature Gran # (Auto) Neut # (Auto) Lymph # (Auto) Hooker # (Auto) Eos # (Auto) Baso # (Auto) Absolute Nucleated RBC Nucleated RBC % (auto) PT INR APTT PTT Ratio Sample Site POC pH POC pCO2 POC pO2 POC HCO3 POC Total CO2 POC Base Excess ABG pH ABG pCO2 ABG pO2 ABG HCO3 POC ABG O2 Sat ABG O2 Saturation ABG Base Excess Darrel Test Barometric Pressure Oxygen Given O2 Delivery Device POC O2 Rate POC FiO2 Tidal Volume PEEP Sodium 134 L Potassium 7.3 H* Chloride 102 Carbon Dioxide 25 Anion Gap 7.0 BUN 68 H Creatinine 2.87 H Est Cr Clr Drug Dosing 30.5 Est GFR ( Amer) 19.1 Est GFR (Non-Af Amer) 16.5 BUN/Creatinine Ratio 23.6 H Glucose 82 POC Glucose Estimat Average Glucose Hemoglobin A1c Lactate Calcium 8.7 Phosphorus Magnesium Total Bilirubin AST ALT Alkaline Phosphatase Ammonia Troponin I NT-Pro-B Natriuret Pep Total Protein Albumin Globulin Albumin/Globulin Ratio Procalcitonin TSH Free T4 Ur Random Creatinine 180.0 Ur Random Sodium 17 Hep Bs Antigen Hep Bs Antibody Hep Bs Antibody, Quant 10/13/19 10/13/19 10/13/19 10:34 10:40 10:40 WBC RBC Hgb Hct MCV MCH MCHC RDW Std Deviation RDW Coeff of Mehnaz Plt Count MPV Immature Gran % (Auto) Neut % (Auto) Lymph % (Auto) Hooker % (Auto) Eos % (Auto) Baso % (Auto) Immature Gran # (Auto) Neut # (Auto) Lymph # (Auto) Hooker # (Auto) Eos # (Auto) Baso # (Auto) Absolute Nucleated RBC Nucleated RBC % (auto) PT INR APTT PTT Ratio Sample Site POC pH POC pCO2 POC pO2 POC HCO3 POC Total CO2 POC Base Excess ABG pH 7.16 L* ABG pCO2 65 H ABG pO2 78 L ABG HCO3 23 POC ABG O2 Sat ABG O2 Saturation 92.2 ABG Base Excess -6.4 Darrel Test Pos Barometric Pressure 729.8 Oxygen Given 5L O2 Delivery Device POC O2 Rate POC FiO2 Tidal Volume PEEP Sodium Potassium Chloride Carbon Dioxide Anion Gap BUN Creatinine Est Cr Clr Drug Dosing Est GFR ( Amer) Est GFR (Non-Af Amer) BUN/Creatinine Ratio Glucose POC Glucose Estimat Average Glucose Hemoglobin A1c Lactate 2.8 H* Calcium Phosphorus Magnesium Total Bilirubin AST ALT Alkaline Phosphatase Ammonia 16.0 Troponin I NT-Pro-B Natriuret Pep Total Protein Albumin Globulin Albumin/Globulin Ratio Procalcitonin TSH Free T4 Ur Random Creatinine Ur Random Sodium Hep Bs Antigen Hep Bs Antibody Hep Bs Antibody, Quant 10/13/19 10/13/19 10/13/19 10:40 10:42 13:49 WBC RBC Hgb Hct MCV MCH MCHC RDW Std Deviation RDW Coeff of Mehnaz Plt Count MPV Immature Gran % (Auto) Neut % (Auto) Lymph % (Auto) Hooker % (Auto) Eos % (Auto) Baso % (Auto) Immature Gran # (Auto) Neut # (Auto) Lymph # (Auto) Hooker # (Auto) Eos # (Auto) Baso # (Auto) Absolute Nucleated RBC Nucleated RBC % (auto) PT INR APTT PTT Ratio Sample Site R Radial POC pH 7.30 L POC pCO2 59 H POC pO2 124 H POC HCO3 29 H POC Total CO2 31 POC Base Excess 3.0 H ABG pH ABG pCO2 ABG pO2 ABG HCO3 POC ABG O2 Sat 98.0 H ABG O2 Saturation ABG Base Excess Darrel Test Pass Barometric Pressure Oxygen Given O2 Delivery Device Ventilator POC O2 Rate 14 POC FiO2 100 Tidal Volume 500 PEEP 5 Sodium Potassium Chloride Carbon Dioxide Anion Gap BUN Creatinine Est Cr Clr Drug Dosing Est GFR ( Amer) Est GFR (Non-Af Amer) BUN/Creatinine Ratio Glucose POC Glucose Estimat Average Glucose Hemoglobin A1c Lactate Calcium Phosphorus 7.6 H Magnesium 3.3 H Total Bilirubin AST ALT Alkaline Phosphatase Ammonia Troponin I < 0.015 NT-Pro-B Natriuret Pep Total Protein Albumin Globulin Albumin/Globulin Ratio Procalcitonin TSH 5.310 H Free T4 1.25 Ur Random Creatinine Ur Random Sodium Hep Bs Antigen Neg Hep Bs Antibody Non-Immune Hep Bs Antibody, Quant < 3.10 L 10/13/19 10/13/19 14:40 16:39 WBC RBC Hgb Hct MCV MCH MCHC RDW Std Deviation RDW Coeff of Mehnaz Plt Count MPV Immature Gran % (Auto) Neut % (Auto) Lymph % (Auto) Hooker % (Auto) Eos % (Auto) Baso % (Auto) Immature Gran # (Auto) Neut # (Auto) Lymph # (Auto) Hooker # (Auto) Eos # (Auto) Baso # (Auto) Absolute Nucleated RBC Nucleated RBC % (auto) PT INR APTT PTT Ratio Sample Site POC pH POC pCO2 POC pO2 POC HCO3 POC Total CO2 POC Base Excess ABG pH ABG pCO2 ABG pO2 ABG HCO3 POC ABG O2 Sat ABG O2 Saturation ABG Base Excess Darrel Test Barometric Pressure Oxygen Given O2 Delivery Device POC O2 Rate POC FiO2 Tidal Volume PEEP Sodium Potassium Chloride Carbon Dioxide Anion Gap BUN Creatinine Est Cr Clr Drug Dosing Est GFR ( Amer) Est GFR (Non-Af Amer) BUN/Creatinine Ratio Glucose POC Glucose 104 H 106 H Estimat Average Glucose Hemoglobin A1c Lactate Calcium Phosphorus Magnesium Total Bilirubin AST ALT Alkaline Phosphatase Ammonia Troponin I NT-Pro-B Natriuret Pep Total Protein Albumin Globulin Albumin/Globulin Ratio Procalcitonin TSH Free T4 Ur Random Creatinine Ur Random Sodium Hep Bs Antigen Hep Bs Antibody Hep Bs Antibody, Quant Medications Administered Albuterol (Ventolin 0.083% 2.5mg/3ml) 2.5 mg NEB Q4H PRN PRN Reason: Shortness Of Breath Or Wheezing Stop: 11/12/19 06:37 Last Admin: 10/13/19 15:42 Dose: 2.5 mg Documented by: [id number] Albuterol (Duoneb) 3 ml NEB Q6R [facility] Stop: 11/12/19 08:45 Last Admin: 10/13/19 14:01 Dose: 3 ml Documented by: [id number] Admin: 10/13/19 10:29 Dose: 3 ml Documented by: [id number] Amiodarone HCl (Cordarone) 200 mg PO Q12 [facility] Stop: 11/12/19 08:59 Last Admin: 10/13/19 11:29 Dose: Not Given Documented by: [id number] Fentanyl Citrate (Fentanyl Citrate) 50 mcg IV Q2H PRN PRN Reason: Moderate Pain (4,5,6) Stop: 10/27/19 12:26 Last Admin: 10/13/19 17:49 Dose: 50 mcg Documented by: [id number] Gabapentin (Neurontin) 600 mg PO TID [facility] Stop: 11/12/19 08:59 Last Admin: 10/13/19 14:34 Dose: Not Given Documented by: [id number] Admin: 10/13/19 11:30 Dose: Not Given Documented by: [id number] Ceftriaxone Sodium 2,000 mg/ (Dextrose) 70 mls @ 100 mls/hr IV Q24H [facility]; Protocol Stop: 10/20/19 11:59 Last Infusion: 10/13/19 15:38 Dose: 0 mls/hr Documented by: [id number] Admin: 10/13/19 14:56 Dose: 100 mls/hr Documented by: [id number] Propofol (Diprivan) 1,000 mg in 100 mls @ 5.274 mls/hr IV .[id number] [facility]; Protocol Stop: 10/16/19 12:26 Last Titration: 10/13/19 15:12 Dose: 5 mcg/kg/min, 5.3 mls/hr Documented by: [id number] Titration: 10/13/19 15:08 Dose: 0 mcg/kg/min, 0 mls/hr Documented by: [id number] Cosigned by: [id number] Titration: 10/13/19 14:43 Dose: 0 mcg/kg/min, 0 mls/hr Documented by: [id number] Titration: 10/13/19 13:30 Dose: 10 mcg/kg/min, 10.5 mls/hr Documented by: [id number] Admin: 10/13/19 12:30 Dose: 5 mcg/kg/min, 5.3 mls/hr Documented by: [id number] Cosigned by: [id number] Insulin Aspart (Novolog Flexpen) 0 units SC ACHS [facility] Stop: 11/12/19 08:45 Last Admin: 10/13/19 14:52 Dose: Not Given Documented by: [id number] Cosigned by: [id number] Admin: 10/13/19 10:12 Dose: Not Given Documented by: [id number] Cosigned by: [id number] Magnesium Oxide (Mag-Ox) 400 mg PO [facility] Stop: 11/12/19 08:59 Last Admin: 10/13/19 11:29 Dose: Not Given Documented by: [id number] Montelukast Sodium (Singulair) 10 mg PO QAM [facility] Stop: 11/12/19 08:59 Last Admin: 10/13/19 11:30 Dose: Not Given Documented by: [id number] Multivitamins/Minerals (Multivitamin W/ Minerals Tab) 1 tab PO [facility] Stop: 11/12/19 08:59 Last Admin: 10/13/19 11:29 Dose: Not Given Documented by: [id number] Resident Activity Tracking Resident Involvement: Resident Care Provided Care Provided: Adult Hospital Medicine
[2019-10-13] MEDS: INSULIN ASPART 100 UNITS/ML 3 ML PEN SC SCH ×4 (10:12→21:07)
[2019-10-13] MEDS: ALBUT/IPRATROP 3MG/0.5MG NEB 3 ML VIAL NEB SCH ×2 (10:29→14:01)
[2019-10-13 10:46] LABS: Base Excess ABG -6.4 mEq/L (-9-1.8); HCO3 ABG 23 mmol/L (19-24); Oxygen Saturation ABG 92.2 % (90-95); PCO2 ABG 65 mmHg (35-46); PO2 ABG 78 mm/Hg (80-95)
[2019-10-13 10:47] LABS: Allen Test Pos (Pos)
[2019-10-13 10:50] LABS: pH ABG 7.16 (7.35-7.45)
[2019-10-13] MEDS ORDERED: SODIUM CHLORIDE 0.9% 1000ML 1,000 ML IV PRN (11:11)
[2019-10-13] MEDS: CEROVITE ADV FORMULA TAB PO SCH (11:29)
[2019-10-13] MEDS: AMIODARONE 200 MG TAB PO SCH (11:29)
[2019-10-13] MEDS: MAGNESIUM OXIDE 400 MG TAB PO SCH (11:29)
[2019-10-13] MEDS: MONTELUKAST SODIUM 10 MG TABLET PO SCH (11:30)
[2019-10-13] MEDS: GABAPENTIN 600 MG TAB PO SCH ×2 (11:30→14:34)
[2019-10-13 11:44] LABS: Magnesium 3.3 mg/dl (1.8-2.4); Phosphorus 7.6 mg/dl (2.5-4.9); Troponin I < 0.015 ng/ml (0-0.045)
[2019-10-13 11:57] LABS: T4 Free Thyroxine 1.25 ng/dl (0.8-1.6)
[2019-10-13] MEDS ORDERED: SODIUM BICARB 8.4% INJ 50 MEQ/50 ML SYR ONE (11:59)
[2019-10-13] MEDS ORDERED: RAPID SEQUENCE INDUCTION BAG ONE (12:00)
[2019-10-13] MEDS ORDERED: cefTRIAXone SODIUM 2,000 MG in DEXTROSE 5% 50 ML IV SCH (12:00)
[2019-10-13] MEDS ORDERED: KETAMINE HCL INJ 50 MG/ML 10 ML VIAL ONE (12:03)
[2019-10-13] MEDS ORDERED: GLYCOPYRROLATE 0.2 MG/ML VIAL ONE (12:05)
--- NOTE | 2019-10-13 12:23 | Nephrology Consultation ---
Date of Consultation October 13, 2019 Assessment & Plan (1) Acute and chronic respiratory failure with hypoxia: Patient to be transferred to the ICU for respiratory distress. She requires diuresis. Her condition at the time of my assessment was acutely decompensated. CXR personally reviewed demonstrating evidence of pulmonary congestion and an infiltrate in the right lung base. (2) Hyperkalemia: EKG demonstrates sinus bradycardia with 1st degree AV block and a prolonged QRS. Urine output is suboptimal. Urine sodium and clinical presentation consistent with acute CRS. Calcium gluconate is appropriately being provided. Emergent dialysis is necessary. Orders were entered into the EMR and communicated to the dialysis nurse public information relations manager. I discussed the plan of care with Dr. Steward. He will place a bedside HD catheter. EFRAÍN has been held. (3) Acute kidney failure: Consistent with ATN and/or HRS. No renal imaging available for review. No urine microscopy. These can be obtained once patient is stable. Heard is in place. Emergent dialysis orders have been entered for volume removal and definitive management of hyperkalemia. EFRAÍN, Januvia and metformin have been held. (4) Afib: Hold amiodarone for bradycardia and hypotension. Sinus bradycardia with first degree AV block. (5) DM type 2 (diabetes mellitus, type 2): (6) Asthma: (7) Morbid obesity with body mass index of 50 or higher: History of Present Illness Reason for Consultation: Hyperkalemia, DIANNE Requesting Physician: Ke Barnett DO Attending Physician: Ke Barnett DO History of Present Illness Rekha Khanna is 64-year-old female who was seen and evaluated urgently around 10 30 a.m. for acute kidney injury and hyperkalemia. I discussed the plan of care with Dr. Steward. At this time patient was in transition to the intensive care unit. During my evaluation patient was in respiratory distress requiring BiPAP and she was not able to provide any history. Patient's medical history was obtained by review of the record. Baseline creatinine in May appears to be 1.1 milligram/deciliter. Patient has never been previously evaluated by a tree puller. She has no documented history of prior kidney disease. Since admission despite IV Lasix 20 milligrams IV she is not effected than appropriate diuresis. Medical history is notable for hypothyroidism, obstructive sleep apnea, CVA, asthma, morbid obesity, diabetes mellitus, history of atrial fibrillation. Patient was admitted to [facility] in July of 2018 with a right fibula fracture following a fall. She presented to the emergency department at [facility] from [facility] where she resides with shortness of breath and hypoxia. Symptoms have been present for approximately 24 hours. In addition to renal insufficiency, evaluation was notable for evidence of acute heart failure as well as a possible right basilar pneumonia. Patient was treated with furosemide and antibiotic therapy including azithromycin and ceftriaxone. The patient had also been provided IV insulin and calcium gluconate which was being given by the nurses at the time of my assessment. Allergies Allergy/AdvReac Type Severity Reaction Status Date / Time Iodinated Contrast Media Allergy Intermediate HIVES Verified 10/13/19 05:53 latex Allergy Unknown LOW LEVEL Verified 10/13/19 05:53 LATEX ALLERGY Quinolones Allergy Unknown DR HICKS Verified 10/13/19 05:53 ASKED THAT ALLERGY BE ADDED 07/31/08 Sulfa (Sulfonamide Allergy Unknown HIVES Verified 10/13/19 05:53 Antibiotics) vancomycin Allergy Unknown HIVES, GI Verified 10/13/19 05:53 UPSET Home Medications Home Medications Medication Instructions Recorded Confirmed Type amiodarone 200 mg PO Q12 08/02/18 10/13/19 History aspirin 81 mg PO HS 08/02/18 10/13/19 History atorvastatin 40 mg PO QPM 08/02/18 10/13/19 History calcium carbonate 1,075 mg PO Q8 PRN 08/02/18 10/13/19 History fluticasone propion-salmeterol 1 puff INHALATION BID 08/02/18 10/13/19 History [Advair Diskus] fluticasone propionate 2 spray INTRANASAL HS 08/02/18 10/13/19 History gabapentin 600 mg PO TID 08/02/18 10/13/19 History lisinopril 20 mg PO Q12 08/02/18 10/13/19 History magnesium oxide 400 mg PO QAM 08/02/18 10/13/19 History metformin 1,000 mg PO BIDM 08/02/18 10/13/19 History multivitamin with minerals 1 tab PO QAM 08/02/18 10/13/19 History [Multiple Vitamin-Minerals] sitagliptin [Januvia] 100 mg PO QAM 08/02/18 10/13/19 History Lactobacillus acidoph-L.bulgar 1 tab PO DAILY 10/13/19 10/13/19 History [Lactinex] acetaminophen [Tylenol] 325 mg PO Q6 PRN MDD 3gm/24hr 10/13/19 10/13/19 History acetaminophen [Tylenol] 325 mg PO Q6H PRN MDD 3gm/24hr 10/13/19 10/13/19 History albuterol sulfate [Ventolin HFA] 2 puff INHALATION Q4 PRN 10/13/19 10/13/19 History amoxicillin-pot clavulanate 1 tab PO BID 10/13/19 10/13/19 History carbamide peroxide [Debrox] 2 drp OTB UD 10/13/19 10/13/19 History insulin lispro [Humalog U-100 1 sliding scale dose SUBCUT 10/13/19 10/13/19 History Insulin] USEASDIRECTD PRN ipratropium-albuterol 3 ml INHALATION . EVERY 2 HOURS PRN 10/13/19 10/13/19 History ipratropium-albuterol 3 ml INHALATION QID 10/13/19 10/13/19 History levothyroxine 112 mcg PO QPM 10/13/19 10/13/19 History metoprolol tartrate 37.5 mg PO BID 10/13/19 10/13/19 History montelukast 10 mg PO QAM 10/13/19 10/13/19 History oxycodone 5 mg PO TID 10/13/19 10/13/19 History sennosides-docusate sodium 1 tab-cap PO BID 10/13/19 10/13/19 History [Senokot-S] warfarin 3 mg PO HS 10/13/19 10/13/19 History Patient History Medical History A-fib Asthma (Chronic) CVA (cerebral vascular accident) (Acute) DM type 2 (diabetes mellitus, type 2) (Chronic) History of left shoulder replacement (Acute) Hypertension (Chronic) Left cervical radiculopathy (Acute) Morbid obesity with body mass index of 50 or higher (Chronic) Osteoarthritis (Chronic) Sleep apnea (Chronic) "on cpap" Stroke-like symptoms Surgical History Status post bilateral total hip replacement (Chronic) Family History Other Family history non-contributory Social History Preferred Language: German Communication Ability: Effective Conference Center Coordinator Required: No Beliefs That Will Affect Care: None marital status: Single Current Living Situation: Half-Way Feels Safe at Home: Yes Smoking Status: Never smoker Second Hand Exposure: No ; Hx Alcohol Use: No Hx Substance Use: No Review of Systems Review of Systems: Unobtainable due to cognitive status Physical Exam Constitutional: + acute distress, + ill appearing and + morbidly obese Eyes: + anicteric sclerae; no conjunctival abnormality ENMT: BIPAP mask Neck: normal visual inspection and + thick neck Respiratory: + respiratory distress Auscultation: + rales Cardiovascular: Rate/Rhythm: + bradycardic Heart Sounds: no murmur Extremities: + edema Gastrointestinal (Abdomen): Inspection/Auscultation: + significant pannus and + hypoactive bowel sounds Musculoskeletal: Extremities: no cyanosis and no clubbing Skin: normal turgor; no rashes Neurologic: moves all extremities and + confused Results & Data Vital Signs (Past 12 Hours) Vital Signs Temp Pulse Pulse Resp BP BP Pulse Ox 10/13/19 10:40 47 L 18 98 10/13/19 08:48 36.6 C 48 L 28 H 94/62 L 94 10/13/19 07:54 49 L 24 94 10/13/19 07:30 25 H 93 10/13/19 07:00 60 18 86 L 10/13/19 06:35 50 L 21 82/56 L 93 10/13/19 06:33 50 L 25 H 93 10/13/19 06:30 50 L 18 78/48 L 91 10/13/19 06:03 51 L 21 103/55 L 94 10/13/19 05:34 51 L 21 89/40 L 94 10/13/19 05:33 56 L 20 82/43 L 86 L 10/13/19 04:50 36.6 C 52 L 19 97/48 L 85 L Laboratory Results Laboratory Results - last 24 hr 10/13/19 10/13/19 10/13/19 04:23 04:23 04:23 WBC 8.05 RBC 3.66 L Hgb 10.0 L Hct 33.9 L MCV 92.6 MCH 27.3 MCHC 29.5 L RDW Std Deviation 64.2 H RDW Coeff of Mehnaz 18.9 H Plt Count 309 MPV 9.9 Immature Gran % (Auto) 0.2 Neut % (Auto) 78.3 Lymph % (Auto) 9.4 [place] % (Auto) 7.3 Eos % (Auto) 4.2 Baso % (Auto) 0.6 Immature Gran # (Auto) 0.02 Neut # (Auto) 6.29 Lymph # (Auto) 0.76 L [place] # (Auto) 0.59 Eos # (Auto) 0.34 Baso # (Auto) 0.05 Absolute Nucleated RBC 0.02 H Nucleated RBC % (auto) 0.3 PT 20.5 H INR 2.1 H APTT 33.3 H PTT Ratio 1.2 ABG pH ABG pCO2 ABG pO2 ABG HCO3 ABG O2 Saturation ABG Base Excess Darrel Test Barometric Pressure Oxygen Given Sodium 131 L Potassium 7.3 H* Chloride 100 Carbon Dioxide 26 Anion Gap 7.0 BUN 64 H Creatinine 2.77 H Est Cr Clr Drug Dosing Not Reportable Est GFR ( Amer) 20.0 Est GFR (Non-Af Amer) 17.2 BUN/Creatinine Ratio 23.1 H Glucose 99 POC Glucose Estimat Average Glucose Hemoglobin A1c Lactate Calcium 8.8 Phosphorus Magnesium Total Bilirubin 0.3 AST 21 ALT 50 Alkaline Phosphatase 102 Ammonia Troponin I < 0.015 NT-Pro-B Natriuret Pep 7187 H Total Protein 7.1 Albumin 2.9 L Globulin 4.2 H Albumin/Globulin Ratio 0.7 L Procalcitonin TSH Free T4 Ur Random Creatinine Ur Random Sodium 10/13/19 10/13/19 10/13/19 04:23 04:23 08:54 WBC RBC Hgb Hct MCV MCH MCHC RDW Std Deviation RDW Coeff of Mehnaz Plt Count MPV Immature Gran % (Auto) Neut % (Auto) Lymph % (Auto) [place] % (Auto) Eos % (Auto) Baso % (Auto) Immature Gran # (Auto) Neut # (Auto) Lymph # (Auto) [place] # (Auto) Eos # (Auto) Baso # (Auto) Absolute Nucleated RBC Nucleated RBC % (auto) PT INR APTT PTT Ratio ABG pH ABG pCO2 ABG pO2 ABG HCO3 ABG O2 Saturation ABG Base Excess Darrel Test Barometric Pressure Oxygen Given Sodium Potassium Chloride Carbon Dioxide Anion Gap BUN Creatinine Est Cr Clr Drug Dosing Est GFR ( Amer) Est GFR (Non-Af Amer) BUN/Creatinine Ratio Glucose POC Glucose 94 Estimat Average Glucose 114 Hemoglobin A1c 5.6 Lactate Calcium Phosphorus Magnesium Total Bilirubin AST ALT Alkaline Phosphatase Ammonia Troponin I NT-Pro-B Natriuret Pep Total Protein Albumin Globulin Albumin/Globulin Ratio Procalcitonin 0.13 TSH Free T4 Ur Random Creatinine Ur Random Sodium 10/13/19 10/13/19 10/13/19 09:16 09:35 09:35 WBC RBC Hgb Hct MCV MCH MCHC RDW Std Deviation RDW Coeff of Mehnaz Plt Count MPV Immature Gran % (Auto) Neut % (Auto) Lymph % (Auto) [place] % (Auto) Eos % (Auto) Baso % (Auto) Immature Gran # (Auto) Neut # (Auto) Lymph # (Auto) [place] # (Auto) Eos # (Auto) Baso # (Auto) Absolute Nucleated RBC Nucleated RBC % (auto) PT INR APTT PTT Ratio ABG pH ABG pCO2 ABG pO2 ABG HCO3 ABG O2 Saturation ABG Base Excess Darrel Test Barometric Pressure Oxygen Given Sodium 134 L Potassium 7.3 H* Chloride 102 Carbon Dioxide 25 Anion Gap 7.0 BUN 68 H Creatinine 2.87 H Est Cr Clr Drug Dosing 30.5 Est GFR ( Amer) 19.1 Est GFR (Non-Af Amer) 16.5 BUN/Creatinine Ratio 23.6 H Glucose 82 POC Glucose Estimat Average Glucose Hemoglobin A1c Lactate Calcium 8.7 Phosphorus Magnesium Total Bilirubin AST ALT Alkaline Phosphatase Ammonia Troponin I NT-Pro-B Natriuret Pep Total Protein Albumin Globulin Albumin/Globulin Ratio Procalcitonin TSH Free T4 Ur Random Creatinine 180.0 Ur Random Sodium 17 10/13/19 10/13/19 10/13/19 10:34 10:40 10:40 WBC RBC Hgb Hct MCV MCH MCHC RDW Std Deviation RDW Coeff of Mehnaz Plt Count MPV Immature Gran % (Auto) Neut % (Auto) Lymph % (Auto) [place] % (Auto) Eos % (Auto) Baso % (Auto) Immature Gran # (Auto) Neut # (Auto) Lymph # (Auto) [place] # (Auto) Eos # (Auto) Baso # (Auto) Absolute Nucleated RBC Nucleated RBC % (auto) PT INR APTT PTT Ratio ABG pH 7.16 L* ABG pCO2 65 H ABG pO2 78 L ABG HCO3 23 ABG O2 Saturation 92.2 ABG Base Excess -6.4 Darrel Test Pos Barometric Pressure 729.8 Oxygen Given 5L Sodium Potassium Chloride Carbon Dioxide Anion Gap BUN Creatinine Est Cr Clr Drug Dosing Est GFR ( Amer) Est GFR (Non-Af Amer) BUN/Creatinine Ratio Glucose POC Glucose Estimat Average Glucose Hemoglobin A1c Lactate 2.8 H* Calcium Phosphorus Magnesium Total Bilirubin AST ALT Alkaline Phosphatase Ammonia 16.0 Troponin I NT-Pro-B Natriuret Pep Total Protein Albumin Globulin Albumin/Globulin Ratio Procalcitonin TSH Free T4 Ur Random Creatinine Ur Random Sodium 10/13/19 10:40 WBC RBC Hgb Hct MCV MCH MCHC RDW Std Deviation RDW Coeff of Emhnaz Plt Count MPV Immature Gran % (Auto) Neut % (Auto) Lymph % (Auto) [place] % (Auto) Eos % (Auto) Baso % (Auto) Immature Gran # (Auto) Neut # (Auto) Lymph # (Auto) [place] # (Auto) Eos # (Auto) Baso # (Auto) Absolute Nucleated RBC Nucleated RBC % (auto) PT INR APTT PTT Ratio ABG pH ABG pCO2 ABG pO2 ABG HCO3 ABG O2 Saturation ABG Base Excess Darrel Test Barometric Pressure Oxygen Given Sodium Potassium Chloride Carbon Dioxide Anion Gap BUN Creatinine Est Cr Clr Drug Dosing Est GFR ( Amer) Est GFR (Non-Af Amer) BUN/Creatinine Ratio Glucose POC Glucose Estimat Average Glucose Hemoglobin A1c Lactate Calcium Phosphorus 7.6 H Magnesium 3.3 H Total Bilirubin AST ALT Alkaline Phosphatase Ammonia Troponin I < 0.015 NT-Pro-B Natriuret Pep Total Protein Albumin Globulin Albumin/Globulin Ratio Procalcitonin TSH 5.310 H Free T4 1.25 Ur Random Creatinine Ur Random Sodium PG Care Time/CCT Total # of Minutes Spent Total Time Spent with Patient: Total time spent is greater than 50% in coordination of care (as documented) at patient's floor/unit and/or counseling patient: 45 minutes of critical care time provided.
[2019-10-13] MEDS ORDERED: PROPOFOL 1,000 MG/100 ML VIAL IV SCH (12:27)
[2019-10-13] MEDS ORDERED: fentaNYL citrate 100 MCG/2 ML VIAL IV PRN (12:27)
[2019-10-13] MEDS ORDERED: PROPOFOL IV EMULSION 10 MG/ML 100 ML VIAL IV ONE (12:31)
--- NOTE | 2019-10-13 13:09 | Procedure Note ---
Procedure Note Date of Service October 13, 2019 Procedure Note Procedure: Central Line Placement Attending: Dr. Steward Resident: Dr. Berger, PGY2 Reason for procedure: Dialysis, Venous Access Consent was implied in the emergent code blue setting. The patient was placed in supine position. Under strict sterile field, pt was draped in the usual fashion, the skin was prepped with chlorhexidine. R IJ was visualized under ultrasound guidance. 5 mL 1% lidocaine was injected, using Seldinger technique with a scalpel, a dilator x2 was used, a trialysis catheter was inserted, all ports were flushed with normal saline, the line was secured with 2 sutures, covered with surgical dressing, chest x-ray performed and showed the tip of the catheter terminates at the superior cavoatrial junction, in appropriate position, no pneumothorax and no immediate complication. Pt tolerated procedure well. The procedure was done by myself and was present throughout the entire procedure. Procedure Date: Noted Above Procedure: Procedural Ultrasound Indication: Central venous access Attending: Lara Steward DO Resident/Physician Fagoting Machine Operator: Dr. Berger, PGY2 Artery visualized: Yes Vein visualized: Yes Compressible Vein: Yes Vein patent: Yes Guidewire or Short Catheter seen in vein prior to dilation: Yes Line confirmed in Vein with ultrasound: Yes Lung Sliding on side of attempt (if applicable): NA If no lung sliding or not obtained has CXR been ordered: Yes Impression: Successful central venous access placement Images obtained are saved for permanent record Supervising Physician Co-Signing Physician Notes I was present and assisted with the entire procedure Coding Resident Activity Tracking Resident Involvement: Resident Care Provided Care Provided: Adult Hospital Medicine
--- NOTE | 2019-10-13 13:39 | XRay Report ---
XR chest 1V portable HISTORY: line, ett placement COMPARISON: Chest 10/13/2019. FINDINGS: Endotracheal tube terminates 3 mm from the rodger. This should be pulled back by approximat natan 2 cm. Nasogastric tube terminates below the diaphragm. The tip is not included on this study. Rig ht subclavian Port-A-Cath terminates at the superior cavoatrial junction. There are low lung volumes. Mild pulmonary edema and cardiomegaly persists. Suspect trace bilateral pleural effusions. IMPRESSION: 1. Endotracheal tube terminates 3 mm from the rodger. This should be pulled back by approximately 2 c m. 2. Pulmonary edema, cardiomegaly, and trace bilateral pleural effusions persist. 3. Findings were discussed with Dr. Steward at 1:44 PM on 10/13/2019. Electronically signed by: Freddy Aden M.D. 10/13/2019 1:54 PM
[2019-10-13 14:05] LABS: iSTAT Allen Test Pass; iSTAT Arterial Blood Gas HCO3 29 meg/L (19-24); iSTAT Arterial Blood Gas pCO2 59 mmHg (35-46); iSTAT Arterial Blood Gas pO2 124 mmHg (80-95); iSTAT Carbon Dioxide 31 mEq/l (24-31); iSTAT FiO2 100 %; iSTAT Site R Radial
--- NOTE | 2019-10-13 14:52 | Procedure Note ---
Procedure Note: Bronchoscopy Procedure Procedure date: October 13, 2019 Procedure: fiberoptic bronchoscopy Pre-procedure indication: acute hypoxic hypercapnic respiratory failure, aspiration Post-procedure Diagnosis: same as above Prior to Procedure: Informed Consent: Emergent. Attending Staff: Lara Steward DO Resident/APC: Not applicable Skin Prep: Not applicable Anesthesia: Continuous infusion The identity of the patient was confirmed and a bedside time out was performed. Description of Procedure: Fiberoptic bronchoscopy was performed via endotracheal tube. Bronchioalveolar lavage left lower lobe was performed. Findings included: Bilateral purulent secretions largely in the lower lobes bilaterally, required multiple aliquots of wash to clear mucoid impactions. Material appeared to possibly be food particles. Patient would rapidly desaturate. Complications: None Specimens: Bronchial washings sent for culture and Gram stain, cytology, fungal elements, and AFB stain and culture. Estimated blood loss: Zero
[2019-10-13] MEDS ORDERED: ALBUMIN 25% 50 ML IV SCH ×2 (15:00)
[2019-10-13 15:05] LABS: Hepatitis B Surface Ab Quant < 3.10 mIU/mL (>or=10mIU/mL Immune); Hepatitis B Surface Antibody Non-Immune
--- NOTE | 2019-10-13 15:11 | Billing Data ---
Coding Level of Care Code Critical Care 1st 30-74 mins
[2019-10-13 15:15] LABS: Hepatitis B Surface Antigen Neg (Neg)
[2019-10-13] MEDS: ALBUTEROL 0.083% NEBU SOLN 3 ML VIAL NEB PRN (15:42)
[2019-10-13] MEDS ORDERED: WARFARIN SOD 3 MG TAB PO SCH (16:00)
--- NOTE | 2019-10-13 16:54 | Dialysis Progress Note ---
Date of Service October 13, 2019 Subjective Patient was seen and evaluated during hemodialysis. Running even due to hypotension. Qb 250. Access pressure elevated. Running V-->A. Oxygenation acceptable. No fevers or chills. The patient's friend was at the bedside at the time of my assessment. I reviewed the plan of care with Dr. Steward. Urine output remains low. Plan additional HD tomorrow for clearance. Results & Data Vital Signs (Past 12 Hours) Vital Signs Temp Pulse Pulse Pulse Resp BP BP 10/13/19 16:40 55 L 93/52 L 10/13/19 16:21 55 L 92/47 L 10/13/19 16:20 56 L 92/47 L 10/13/19 16:17 55 L 55/46 L 10/13/19 16:07 64 73/34 L 10/13/19 16:00 55 L 82/46 L 10/13/19 15:58 56 L 16 10/13/19 15:55 54 L 82/46 L 10/13/19 15:52 55 L 87/30 L 10/13/19 15:46 56 L 10/13/19 15:41 53 L 81/36 L 10/13/19 15:40 54 L 86/35 L 10/13/19 15:36 58 L 80/37 L 10/13/19 15:32 56 L 86/35 L 10/13/19 15:30 78 10/13/19 15:26 56 L 77/43 L 10/13/19 15:21 55 L 90/40 L 10/13/19 15:20 55 L 83/62 L 10/13/19 15:16 54 L 83/62 L 10/13/19 15:00 58 L 82/34 L 10/13/19 14:55 54 L 83/34 L 10/13/19 14:50 54 L 84/47 L 10/13/19 14:45 57 L 83/58 L 10/13/19 14:40 56 L 76/59 L 10/13/19 14:38 54 L 76/59 L 10/13/19 14:20 50 L 88/53 L 10/13/19 14:12 16 10/13/19 14:07 57 L 16 10/13/19 14:05 36.8 C 52 L 10/13/19 13:58 52 L 147/82 H 10/13/19 12:26 71 25 H 10/13/19 10:40 47 L 18 10/13/19 08:48 36.6 C 48 L 28 H 94/62 L 10/13/19 07:54 49 L 24 10/13/19 07:30 25 H 10/13/19 07:00 60 18 10/13/19 06:35 50 L 21 82/56 L 10/13/19 06:33 50 L 25 H 10/13/19 06:30 50 L 18 78/48 L 10/13/19 06:03 51 L 21 103/55 L 10/13/19 05:34 51 L 21 89/40 L 10/13/19 05:33 56 L 20 82/43 L Pulse Ox 10/13/19 16:40 10/13/19 16:21 100 10/13/19 16:20 10/13/19 16:17 100 10/13/19 16:07 100 10/13/19 16:00 100 10/13/19 15:58 100 10/13/19 15:55 100 10/13/19 15:52 100 10/13/19 15:46 100 10/13/19 15:41 100 10/13/19 15:40 10/13/19 15:36 100 10/13/19 15:32 100 10/13/19 15:30 100 10/13/19 15:26 100 10/13/19 15:21 100 10/13/19 15:20 10/13/19 15:16 100 10/13/19 15:00 10/13/19 14:55 96 10/13/19 14:50 97 10/13/19 14:45 99 10/13/19 14:40 10/13/19 14:38 98 10/13/19 14:20 10/13/19 14:12 10/13/19 14:07 100 10/13/19 14:05 10/13/19 13:58 10/13/19 12:26 94 10/13/19 10:40 98 10/13/19 08:48 94 10/13/19 07:54 94 10/13/19 07:30 93 10/13/19 07:00 86 L 10/13/19 06:35 93 10/13/19 06:33 93 10/13/19 06:30 91 10/13/19 06:03 94 10/13/19 05:34 94 10/13/19 05:33 86 L
[2019-10-13] MEDS: fentaNYL citrate 100 MCG/2 ML VIAL IV PRN ×3 (17:49→22:47)
[2019-10-13] MEDS ORDERED: MIDAZOLAM HCL 1 MG/ML 2ML VIAL IV PRN ×2 (18:01)
[2019-10-13] MEDS ORDERED: ICU PROTOCOL FOR HYPERGLYCEMIA PRN (18:09)
--- NOTE | 2019-10-13 18:17 | Critical Care Consultation ---
Date of Consultation October 13, 2019 Assessment & Plan (1) Admitted to intensive care unit: Reason Critically Ill: Lottie is a critically ill 64-year-old female who presented the hospital with acute hypoxic respiratory failure and DIANNE and who is been transferred to the ICU for acute hypoxic respiratory failure, impending cardiac arrest, and hyperkalemia. Neuro - CAM ICU: POSITIVE Sedation: Propofol gtt. Analgesia: Fentanyl every 2 hours as needed, Vidaza Burton every 2 hours as needed Ammonia: 16 Held PIN SORTER AND BAGGER gabapentin 3 times daily for MS Cardiac - Near cardiac arrest 2/2 hyperkalemia, congestive heart failure Emergent HD catheter placed, dialysis as below TTE: Mild concentric LVH, LVEF 50-55%, mild RV dilation, elevated RV systolic pressure (40-55 mmHg), moderate tricuspid regurg. BMP 7187 Troponin 0.015, trend every 6 hours x3 PIN SORTER AND BAGGER amiodarone held Continue atorvastatin 40 mg every afternoon History of A. fib Warfarin 3 mg p.o. daily INR daily Respiratory - Acute hypoxic, hypercarbic respiratory failure 2/2 fluid overload Status post intubation, on mechanical ventilation. Continue respiratory support Preintubation ABG (7.16/65/78/23), post (7.3 0/59/124/29) Status post Lasix 40 mg, 20 mg dose Continue dialysis as below Vocal cords edematous during intubation, concerning for aspiration Right lower infiltrate concerning for pneumonia See ID below Asthma Continue montelukast 10 mg daily Ventilation management as above GI - N.p.o. RENAL/LYTES - ARF on CKD with severe hyperkalemia Potassium 7.3 before arrival Received calcium gluconate, insulin plus D5W. Status post emergent dialysis catheter placement Status post 1 round of dialysis Strict I's and O's, Heard in place Nephrology consulted - Heard in place ENDO - Hypothyroidism Continue levothyroxine 112 mcg every afternoon Type 2 diabetes mellitus Hold PIN SORTER AND BAGGER anti-glycemics ICU hyperglycemia protocol TSH 5.3, mildly elevated HEME - Hemoglobin 10.0 No signs of acute bleeding Monitor for bleeding in the setting of warfarin anticoagulation ID - Infiltrate suspicious for right CAP Chest x-ray shows right base infiltrate Empiric treatment with Rocephin 2 g daily Currently afebrile, trend fever curve MRSA screen pending Procalcitonin 0.13 Lactate 2.8, suspect 2/2 ischemia with hypoxic respiratory failure Lactate repeat in the morning Right hip ulcer Chronic, present on admission On PIN SORTER AND BAGGER Augmentin therapy Continue Rocephin as above INTEGUMENTARY - Right hip ulcer, management as above LINES/IV ACCESS - PIVs intact. DVT PROPHYLAXIS - Warfarin Thank you for allowing us to be part of this patient's care. Please refer to Dr. Steward's documentation for any further recommendations. (2) Acute kidney failure: (3) Acute and chronic respiratory failure with hypoxia: (4) Hypoxia: (5) Hyperkalemia: (6) Pulmonary edema: (7) Respiratory failure: (8) Afib: (9) Morbid obesity: (10) Fracture of distal end of fibula: (11) Fall: (12) Chronic joint pain: Supervising Physician Co-Signing Physician Notes Dr. Berger was resident physician during care of patient. I separately evaluated patient for lechuga portions of the history and the exam. I was present during the critical portion of medical decision making, and I discussed the case with the resident. I generally agree with the findings and plan. Patient seen on second floor initially, experiencing mild to moderate metabolic encephalopathy likely secondary to CO2 narcosis. Patient reports that she has been intubated before, feels that transferred to ICU as well as emergent hemodialysis is "moving rather fast" ultimately the patient has a critical potassium as well as a critical pH and I combined respiratory metabolic acidosis. She was emergently transferred to the ICU. Patient was also placed on BiPAP for acute hypoxemia, by the time she arrived in the ICU the patient had became more disoriented and mildly combative attempting to remove the mask. Prior to intubation given significant acidosis she was administered 2 A of bicarb clearly the patient was going to be a difficult intubation and care was taken to perform this safely and successfully, please see procedure note. Shortly after intubation the patient's rhythm was noted to have a widening QRS and she was becoming progressively bradycardic she was immediately treated with calcium chloride, additional bicarb, insulin, dextrose and received half a milligram of epinephrine which improved her hemodynamics and additionally narrowed her QRS complex. The temporary hemodialysis catheter was then emergently placed. Patient had continued episodes of hypoxemia prompting us to proceed with a bronchoscopy for further evaluation as the patient did not exhibit signs of overt pulmonary edema. The patient certainly required emergent hemodialysis for volume control as well as hyperkalemia. In the differential includes a chemical pneumonitis from aspiration as the patient was visibly aspirating (please refer to intubation and bronchoscopy notes) pneumonia, amiodarone toxicity is considered however lower on the differential, pulmonary embolism (unlikely given a therapeutic INR). I have personally spent 120 minutes of critical care time in the direct management of this patient. This is a life/limb threatening event. This includes time spent evaluating patient, direct bedside care, chart review, placing orders, interpretation of diagnostic studies, discussion with consultants, patient, and/or family members regarding treatment decisions, as well as other required patient management activities. This time is exclusive of all separately billable procedures, and teaching time and separate from and in addition to any other critical care service time. History of Present Illness Reason for Consultation: Acute hypoxic respiratory failure Requesting Physician: Horacio Evans Attending Physician: Ke Barnett DO History of Present Illness Lottie is a 63-year-old female resident of [facility] who was referred to the hospital for shortness of breath and hypoxia with SPO2 before arrival into the 70s. She been having a nonproductive cough but no flulike symptoms for 1 day prior. On admission she was found to have hyperkalemia with a potassium of 7.3 and DIANNE with creatinine 2.77, prior baseline 1.1. She is a past medical history of subacute ischemic infarct of the left basal ganglia and left cerebral peduncle, hypertension, hyperlipidemia, morbid obesity, asthma, type 2 diabetes mellitus, obstructive sleep apnea, chronic right hip wound, osteoarthritis, neuropathy, GERD, and coronary artery disease. She was previously hospitalized 08/2018 for gait dysfunction, multiple falls, and right fibular fracture at which time she was transferred to [facility] for care. Patient is transferred to the ICU emergently with acute hypoxic respiratory failure, and impending cardiac arrest. Further history limited by mental status History reviewed from [facility] records as follows: Surgical history: Bilateral hip arthroplasty, left shoulder arthroplasty, port placement, tongue laceration, spinal injection Current medications: Reviewed Allergies: Sulfa, citrus, contrast, latex, quinolones Medications: Advair 250/50, albuterol, amiodarone 200 mg twice daily, aspirin 81 mg daily, atorvastatin 40 mg, Augmentin twice daily for chronic right hip infection, gabapentin 600 mg 3 times daily, insulin, DuoNeb's as needed, Januvia 100 mg daily, Synthroid 112 mcg daily, lisinopril 20 mg daily, magnesium oxide 400 mg daily, metformin 1 g twice daily, metoprolol tartrate 25 mg (written as give 37 mg by mouth twice daily), montelukast 10 mg daily, oxycodone 5 mg 3 times daily, albuterol as needed, warfarin 3 mg daily. Social history Single, no children. Tobacco use: None Alcohol use: None Family history: Myocardial infarction in her father. 2 brothers with hypertension. Alcohol abuse and tobacco abuse in her mother. Allergies Allergy/AdvReac Type Severity Reaction Status Date / Time Iodinated Contrast Media Allergy Intermediate HIVES Verified 10/13/19 05:53 latex Allergy Unknown LOW LEVEL Verified 10/13/19 05:53 LATEX ALLERGY Quinolones Allergy Unknown DR HICKS Verified 10/13/19 05:53 ASKED THAT ALLERGY BE ADDED 07/31/08 Sulfa (Sulfonamide Allergy Unknown HIVES Verified 10/13/19 05:53 Antibiotics) vancomycin Allergy Unknown HIVES, GI Verified 10/13/19 05:53 UPSET Home Medications Home Medications Medication Instructions Recorded Confirmed Type amiodarone 200 mg PO Q12 08/02/18 10/13/19 History aspirin 81 mg PO HS 08/02/18 10/13/19 History atorvastatin 40 mg PO QPM 08/02/18 10/13/19 History calcium carbonate 1,075 mg PO Q8 PRN 08/02/18 10/13/19 History fluticasone propion-salmeterol 1 puff INHALATION BID 08/02/18 10/13/19 History [Advair Diskus] fluticasone propionate 2 spray INTRANASAL HS 08/02/18 10/13/19 History gabapentin 600 mg PO TID 08/02/18 10/13/19 History lisinopril 20 mg PO Q12 08/02/18 10/13/19 History magnesium oxide 400 mg PO QAM 08/02/18 10/13/19 History metformin 1,000 mg PO BIDM 08/02/18 10/13/19 History multivitamin with minerals 1 tab PO QAM 08/02/18 10/13/19 History [Multiple Vitamin-Minerals] sitagliptin [Januvia] 100 mg PO QAM 08/02/18 10/13/19 History Lactobacillus acidoph-L.bulgar 1 tab PO DAILY 10/13/19 10/13/19 History [Lactinex] acetaminophen [Tylenol] 325 mg PO Q6 PRN MDD 3gm/24hr 10/13/19 10/13/19 History acetaminophen [Tylenol] 325 mg PO Q6H PRN MDD 3gm/24hr 10/13/19 10/13/19 History albuterol sulfate [Ventolin HFA] 2 puff INHALATION Q4 PRN 10/13/19 10/13/19 History amoxicillin-pot clavulanate 1 tab PO BID 10/13/19 10/13/19 History carbamide peroxide [Debrox] 2 drp OTB UD 10/13/19 10/13/19 History insulin lispro [Humalog U-100 1 sliding scale dose SUBCUT 10/13/19 10/13/19 History Insulin] USEASDIRECTD PRN ipratropium-albuterol 3 ml INHALATION . EVERY 2 HOURS PRN 10/13/19 10/13/19 History ipratropium-albuterol 3 ml INHALATION QID 10/13/19 10/13/19 History levothyroxine 112 mcg PO QPM 10/13/19 10/13/19 History metoprolol tartrate 37.5 mg PO BID 10/13/19 10/13/19 History montelukast 10 mg PO QAM 10/13/19 10/13/19 History oxycodone 5 mg PO TID 10/13/19 10/13/19 History sennosides-docusate sodium 1 tab-cap PO BID 10/13/19 10/13/19 History [Senokot-S] warfarin 3 mg PO HS 10/13/19 10/13/19 History Patient History Medical History A-fib Asthma (Chronic) CVA (cerebral vascular accident) (Acute) DM type 2 (diabetes mellitus, type 2) (Chronic) History of left shoulder replacement (Acute) Hypertension (Chronic) Left cervical radiculopathy (Acute) Morbid obesity with body mass index of 50 or higher (Chronic) Osteoarthritis (Chronic) Sleep apnea (Chronic) "on cpap" Stroke-like symptoms Surgical History Status post bilateral total hip replacement (Chronic) Family History Other Family history non-contributory Social History Preferred Language: Albanian Communication Ability: Effective Heat Pump Installer Required: No Beliefs That Will Affect Care: None marital status: Single Current Living Situation: Long Term Feels Safe at Home: Yes Smoking Status: Never smoker Second Hand Exposure: No ; Hx Alcohol Use: No Hx Substance Use: No Review of Systems Review of Systems: Unobtainable due to cognitive status and Unobtainable due to endotracheal tube Physical Exam Physical Exam: General: ETT in place. Sedated. Morbidly obese HEENT: Atraumatic, normocephalic. Neuro as below. Unable to test active he aring and vision due to mental status. On intubation vocal cords edematous, inflamed. Pulm: Diminished, distant. On ventilator, active breath sounds appreciated bilaterally. Cardiac: Bradycardic, heart sounds distant. No overt murmurs or rubs appreciated. Radial pulses intact and symmetrical. Abdominal: Obese, softly distended. Bowel sounds intact. Extremities: Diffuse pitting edema. Right hip ulcer with erythema, blanching present. Feet warm, dry bilaterally. Neuro: Pupils equal and reactive to light and accommodation. Sedated, withdraws to thumbnail pinch bilaterally. Results & Data Vital Signs (Past 12 Hours) Vital Signs Temp Pulse Pulse Pulse Resp BP BP 10/13/19 17:04 37.1 C 56 L 56 L 99/49 L 99/49 L 10/13/19 16:40 55 L 93/52 L 10/13/19 16:21 55 L 92/47 L 10/13/19 16:20 56 L 92/47 L 10/13/19 16:17 55 L 55/46 L 10/13/19 16:07 64 73/34 L 10/13/19 16:00 55 L 82/46 L 10/13/19 15:58 56 L 16 10/13/19 15:55 54 L 82/46 L 10/13/19 15:52 55 L 87/30 L 10/13/19 15:46 56 L 10/13/19 15:41 53 L 81/36 L 10/13/19 15:40 54 L 86/35 L 10/13/19 15:36 58 L 80/37 L 10/13/19 15:32 56 L 86/35 L 10/13/19 15:30 78 10/13/19 15:26 56 L 77/43 L 10/13/19 15:21 55 L 90/40 L 10/13/19 15:20 55 L 83/62 L 10/13/19 15:16 54 L 83/62 L 10/13/19 15:00 58 L 82/34 L 10/13/19 14:55 54 L 83/34 L 10/13/19 14:50 54 L 84/47 L 10/13/19 14:45 57 L 83/58 L 10/13/19 14:40 56 L 76/59 L 10/13/19 14:38 54 L 76/59 L 10/13/19 14:20 50 L 88/53 L 10/13/19 14:12 16 10/13/19 14:07 57 L 16 10/13/19 14:05 36.8 C 52 L 10/13/19 13:58 52 L 147/82 H 10/13/19 12:26 71 25 H 10/13/19 10:40 47 L 18 10/13/19 08:48 36.6 C 48 L 28 H 94/62 L 10/13/19 07:54 49 L 24 10/13/19 07:30 25 H 10/13/19 07:00 60 18 10/13/19 06:35 50 L 21 82/56 L 10/13/19 06:33 50 L 25 H 10/13/19 06:30 50 L 18 78/48 L Pulse Ox 10/13/19 17:04 10/13/19 16:40 10/13/19 16:21 100 10/13/19 16:20 10/13/19 16:17 100 10/13/19 16:07 100 10/13/19 16:00 100 10/13/19 15:58 100 10/13/19 15:55 100 10/13/19 15:52 100 10/13/19 15:46 100 10/13/19 15:41 100 10/13/19 15:40 10/13/19 15:36 100 10/13/19 15:32 100 10/13/19 15:30 100 10/13/19 15:26 100 10/13/19 15:21 100 10/13/19 15:20 10/13/19 15:16 100 10/13/19 15:00 10/13/19 14:55 96 10/13/19 14:50 97 10/13/19 14:45 99 10/13/19 14:40 10/13/19 14:38 98 10/13/19 14:20 10/13/19 14:12 10/13/19 14:07 100 10/13/19 14:05 10/13/19 13:58 10/13/19 12:26 94 10/13/19 10:40 98 10/13/19 08:48 94 10/13/19 07:54 94 10/13/19 07:30 93 10/13/19 07:00 86 L 10/13/19 06:35 93 10/13/19 06:33 93 10/13/19 06:30 91 Resident Activity Tracking Resident Involvement: Resident Care Provided Care Provided: Adult Hospital Medicine (1) Pulmonary edema Chronicity: acute Qualified Code(s): J81.0 - Acute pulmonary edema (2) Respiratory failure Chronicity: acute Respiratory failure complication: hypoxia Qualified Co de(s): J96.01 - Acute respiratory failure with hypoxia (3) Fracture of distal end of fibula Encounter type: initial encounter Fracture morphology: unspecified fracture morphology Fracture type: closed Laterality: right Qualified Code(s): S82.831A - Other fracture of upper and lower end of right fibula, initial encounter for closed fracture (4) Fall Encounter type: initial encounter Qualified Code(s): W19.XXXA - Unspecified fall, initial encounter
--- NOTE | 2019-10-13 18:27 | Billing Data ---
Coding Level of Care Code Critical Care nikole addt'l 30 min
--- NOTE | 2019-10-13 18:44 | Procedure Note ---
Procedure Note Date of Service October 13, 2019 Procedure Date: Noted above Procedure: Endotracheal intubation Pre-procedure Diagnosis: Acute on chronic hypoxic hypercapnic respiratory failure Post-procedure Diagnosis: same as above Prior to Procedure: Informed Consent: emergent Attending Staff: Lara Steward DO Resident staff: Ab The identity of the patient was confirmed and a bedside time out was performed. Description of Procedure: Patient was evaluated and required intubation for impending respiratory failure. The patient meets criteria for difficult intubation, care was taken to prepare the patient with ramping so the tragus was in line with the sternal notch. A planned awake intubation without neuromuscular blockade was planned. The following medications were given at the following times: 12:00: Bicarb 2 A 1202 fentanyl 100 mcg 1203 Versed 2 mg 1206 ketamine 50 mg 1210 vecuronium 10 mg A CMAC video laryngoscope was used first by the resident physician, a adequate view was obtained but unable to pass the 7.5 inner diameter endotracheal tube. The patient's oxygen saturation was still greater than 90% and I proceeded with my first attempt, the patient's glottic opening was rather anterior and with cricoid pressure I was still unable to pass the endotracheal tube. After obtaining a bougie I was able to visualize the bougie passing through the vocal cords. The 7.5 inner diameter endotracheal tube was then passed over the bougie under direct visualization of the CMAC. The tube was secured at 23 cm, bilateral breath sounds were heard there was misting tube and a chest x-ray was obtained. After the chest x-ray the endotracheal tube was retracted 2 cm. Chest rise was bilateral. Bilateral breath sounds were heard without air sounds in the abdomen. Mist was noted in the endotracheal tube. End-tidal CO2 measurement was positive. Complications: During initial entry with the laryngoscope obvious aspiration of oral and hypopharynx secretions was noted and suctioned Findings: Not applicable Specimens: Not applicable Estimated blood loss: Zero Coding CPT Codes Resuscitation - Resuscitation: [id number] Endotracheal Intubation, emergency ([id number])
[2019-10-13 20:18] LABS: BUN Creatinine Ratio 23.2 (10-20); Calcium 8.6 mg/dl (8.5-10.1); Creatinine Clr Calc Pharmacy 38.6 ml/min; Est GFR (African American) 25.4; Est GFR (Non-African American) 21.9; Magnesium 2.8 mg/dl (1.8-2.4); Phosphorus 5.3 mg/dl (2.5-4.9)
[2019-10-13] MEDS: ATORVASTATIN 40 MG TAB PO SCH (20:41)
[2019-10-13] MEDS ORDERED: SODIUM POLYSTYRENE SULFONATE PO ONE (21:00)
[2019-10-13] MEDS ORDERED: LEVOTHYROXINE SODIUM 112 MCG TABLET PO SCH (21:00)
[2019-10-13] MEDS ORDERED: SODIUM POLYSTYRENE SULFONATE 15G/60ML SUSP PO ONE (21:30)
[2019-10-13] MEDS ORDERED: fentaNYL citrate 100 MCG/2 ML VIAL IV ONE (21:31)
[2019-10-13] MEDS ORDERED: MIDAZOLAM HCL 5 MG/ML VIAL IV ONE (21:31)
[2019-10-13] MEDS ORDERED: VECURONIUM BROMIDE 10 MG VIAL IV ONE (21:31)
[2019-10-13] MEDS ORDERED: DEXTROSE 50% 50 ML SYRINGE IV ONE (21:33)
[2019-10-13] MEDS ORDERED: SODIUM BICARB 8.4% INJ 50 MEQ/50 ML SYR IV ONE (21:33)
[2019-10-13] MEDS ORDERED: SODIUM CHLORIDE 0.9% 10ML FLUSH IV ONE (21:33)
[2019-10-14] MEDS: fentaNYL citrate 100 MCG/2 ML VIAL IV PRN ×3 (02:16→11:14)
[2019-10-14 02:40] LABS: BUN Creatinine Ratio 22.5 (10-20); Calcium 8.7 mg/dl (8.5-10.1); Creatinine Clr Calc Pharmacy 36.3 ml/min; Est GFR (African American) 23.6; Est GFR (Non-African American) 20.4
[2019-10-14] MEDS ORDERED: NOREPINEPHRINE BIT INJ 8 MG in DEXTROSE 5% 500 ML IV SCH (03:40)
[2019-10-14 04:46] LABS: Hematocrit (blood only) 26.7 % (37-47); Hemoglobin 8.1 g/dL (12.0-16.0); Mean Corpuscular Hemoglobin 27.2 pg (25-34); Mean Corpuscular Hgb Conc 30.3 g/dL (32-36); Mean Corpuscular Volume 89.6 fL (80-100); Nucleated RBC # (auto) 0.02 K/uL (0-0); Nucleated RBC % (auto) 0.3 %; Platelet Count 242 K/uL (130-400); RDW Coefficient of Variation 18.6 % (11.5-14.5); RDW Standard Deviation 60.7 fL (36.4-46.3); Red Blood Count 2.98 M/uL (4.2-5.4); White Blood Count 7.63 K/uL (4.8-10.8)
[2019-10-14 04:55] LABS: INR 2.8 (0.9-1.1); Prothrombin Time 27.1 Seconds (9.0-12.0)
[2019-10-14 05:07] LABS: BUN Creatinine Ratio 22.8 (10-20); Calcium 8.2 mg/dl (8.5-10.1); Creatinine Clr Calc Pharmacy 36.5 ml/min; Est GFR (African American) 23.8; Est GFR (Non-African American) 20.5; Potassium 5.9 mmol/L (3.5-5.1)
--- NOTE | 2019-10-14 05:32 | Critical Care Progress Note ---
Date of Service October 14, 2019 Assessment & Plan (1) Admitted to intensive care unit: Reason Critically Ill: Lottie is a critically ill 64-year-old female who presented the hospital with acute hypoxic respiratory failure and DIANNE and who is been transferred to the ICU for acute hypoxic respiratory failure, impending cardiac arrest, and hyperkalemia. Neuro - [facility] ICU: Negative Sedation: Midazolam push PRN Analgesia: Fentanyl every 2 hours as needed Held SSIS SSRS DEVELOPER gabapentin 3 times daily for MS Cardiac - Near cardiac arrest 2/2 hyperkalemia, congestive heart failure Emergent HD catheter placed, dialysis as below TTE: Mild concentric LVH, LVEF 50-55%, mild RV dilation, elevated RV systolic pressure (40-55 mmHg), moderate tricuspid regurg. BMP 7187 Initial troponin negative, morning Trop at 0.215, likely demand ischemia. Trend troponins SSIS SSRS DEVELOPER amiodarone held Continue atorvastatin 40 mg every afternoon - Dobutamine 2.5, levophed 0.4; titrate per protocol History of A. fib Warfarin 3 mg p.o. daily INR daily Respiratory - Acute hypoxic, hypercarbic respiratory failure 2/2 fluid overload Status post intubation, on mechanical ventilation. Continue respiratory support Preintubation ABG (7.16/65/78/23), post (7.3 0/59/124/29) CPAP trial this morning, R SBI greater than 100 with M sign ABG today 7.3 9/44/81/27 on 0.45 CPAP trial this morning Continue dialysis as below Vocal cords edematous during intubation, concerning for aspiration Underlying PHTN with right heart strain, ?2/2 KHALIDA. - ?sildenafil. Will discuss at [facility] - When extubated MUST have SETTLEMENT AGENT consult prior to any orals given signs of chronic aspiration - s/p bronch 12/6. Right lower infiltrate concerning for pneumonia See ID below Asthma Continue montelukast 10 mg daily Ventilation management as above GI - N.p.o. Start novosource trophic feeds - When extubated MUST have SETTLEMENT AGENT consult prior to any orals given signs of chronic aspiration RENAL/LYTES - ARF on CKD with severe hyperkalemia Potassium 7.3 before arrival, improved to 6 following dialysis, 5.9 this morning Status post 1 round of dialysis, second round of dialysis today Creatinine decreased from 2.8-2.2 following dialysis, uptrending back to 2.4 today Strict I's and O's, Heard in place Nephrology consulted - Heard in place ENDO - Hypothyroidism Type 2 diabetes mellitus Hold SSIS SSRS DEVELOPER anti-glycemics ICU hyperglycemia protocol TSH 5.3, mildly elevated. - Random cortisol pending HEME - Hemoglobin 8.1 No nuchal bleeding on exam Monitor for bleeding in the setting of warfarin anticoagulation Fibrinogen pending ID - Infiltrate suspicious for right Pneumonia Chest x-ray shows right base infiltrate Empiric treatment with Rocephin 2 g daily, convert to Cefepime given prior suppressive Abx use and severe illness Currently afebrile, trend fever curve MRSA screen Procalcitonin 0.13 Lactate 2.8, suspect 2/2 ischemia with hypoxic respiratory failure Lactate repeat downtrended, normalized at 0.9 - bronch, blood cultures pending ngtd Right hip ulcer Chronic, present on admission On SSIS SSRS DEVELOPER Augmentin therapy - Abx as above INTEGUMENTARY - Right hip ulcer, management as above LINES/IV ACCESS - PIVs intact. DVT PROPHYLAXIS - Warfarin Thank you for allowing us to be part of this patient's care. Please refer to Dr. Steward's documentation for any further recommendations. (2) Acute kidney failure: (3) Acute and chronic respiratory failure with hypoxia: (4) Hypoxia: (5) Hyperkalemia: (6) Pulmonary edema: (7) Respiratory failure: (8) Afib: (9) Morbid obesity: (10) Fracture of distal end of fibula: (11) Fall: (12) Chronic joint pain: Supervising Physician Co-Signing Physician Notes Dr. Berger was resident physician during care of patient. I separately evaluated patient for lechuga portions of the history and the exam. I was present during the critical portion of medical decision making, and I discussed the case with the resident. I generally agree with the findings and plan. Patient underwent dialysis and had large volume removed. During dialysis and subsequent to the patient's hemodynamics have improved, we initially started the patient on Levophed overnight however I feel the hypotension was artifactual secondary to body habitus causing spurious cuff blood pressures. It was noted that the patient was profoundly hypotensive via the cuff pressure yet was alert able to follow complex commands. Subsequent to this the blood pressures have improved she has indicated that she would like to have the breathing tube removed. Her extubation parameters were reassuring, we will proceed with extubation. We are decreasing the warfarin dose today, we will continue Rocephin I am concerned of the quality of sputum may represent developing pneumonia however as noted above her extubation parameters were reassuring. After extubation the patient reported that she wears BiPAP while napping she is unsure of her settings, she is tolerated 10/14 and we will proceed with that when sleeping Speech evaluation prior to any food intake. There have been friends who have presented to the bedside, per case management there is no dedicated power of business attorney with no children or parents, the closest relatives are brothers Kei and Marvel, reportedly Kei lives in [place] with a phone number of [phone] Subjective Clear seen at the bedside this morning. Her propofol was weaned last night, she has been intermittent fentanyl boluses as needed for pain/discomfort while on vent. She is alert this morning, is able to follow commands. Blinks and nods to indicate that the vent is uncomfortable, but she is not in other pain. No chest pain. On CPAP trial at time of visit. She was briefly hypotensive overnight, received Levophed 0.02 transiently, discontinued this morning. No other overnight events. Review of Systems Review of Systems: Unobtainable due to endotracheal tube Physical Exam Physical Exam: General: ETT in place. Alert. Follows one-step commands (squeeze fingers on each hand independently, cough on command) HEENT: Atraumatic, normocephalic. Pulm: Diminished, coarse rhonchi present. On ventilator, active breath sounds appreciated bilaterally. Undergoing CPAP trial at time of visit. Cardiac: RRR, heart sounds distant but no murmurs rubs or gallops appreciated.. Radial pulses intact and symmetrical. Abdominal: Obese, softly distended. Bowel sounds intact. Extremities: Diffuse pitting edema. Right hip ulcer with erythema, blanching present. Feet warm, dry bilaterally. Neuro: Pupils equal and reactive to light and accommodation. Sensation intact to soft touch in fingertips and toes bilaterally. Results & Data Vital Signs (Past 12 Hours) Vital Signs Temp Pulse Resp BP Pulse Ox 10/14/19 03:32 54 L 78/35 L 95 10/14/19 03:30 54 L 66/37 L 95 10/14/19 03:15 56 L 82/53 L 96 10/14/19 03:00 55 L 84/45 L 95 10/14/19 02:45 57 L 96/55 L 95 10/14/19 02:32 58 L 74/63 L 94 10/14/19 02:30 59 L 95 10/14/19 02:00 63 100 10/14/19 01:45 57 L 106/72 96 10/14/19 01:30 54 L 85/47 L 98 10/14/19 01:15 55 L 88/44 L 97 10/14/19 01:01 58 L 111/62 96 10/14/19 01:00 56 L 96 10/14/19 00:45 58 L 117/70 97 10/14/19 00:30 54 L 105/50 L 96 10/14/19 00:15 53 L 82/47 L 97 10/14/19 00:00 37.0 C 52 L 90/45 L 98 10/13/19 23:45 52 L 86/44 L 97 10/13/19 23:30 52 L 83/43 L 96 10/13/19 23:25 53 L 16 96 10/13/19 23:15 52 L 86/44 L 97 10/13/19 23:10 54 L 97/48 L 96 10/13/19 23:05 53 L 84/44 L 97 10/13/19 23:00 52 L 80/40 L 97 10/13/19 22:56 52 L 82/41 L 97 10/13/19 22:51 53 L 106/56 L 96 10/13/19 22:46 54 L 116/66 96 10/13/19 22:40 57 L 116/62 97 10/13/19 22:36 63 112/62 96 10/13/19 22:31 56 L 119/64 96 10/13/19 22:30 56 L 95 10/13/19 22:26 56 L 123/60 96 10/13/19 22:22 55 L 116/62 99 10/13/19 22:17 56 L 119/61 97 10/13/19 22:11 56 L 94/61 L 96 10/13/19 22:05 56 L 108/68 96 10/13/19 22:04 57 L 17 96 10/13/19 22:01 57 L 107/73 97 10/13/19 22:00 57 L 94 10/13/19 21:56 58 L 126/57 L 96 10/13/19 21:51 57 L 96/81 L 97 10/13/19 21:46 57 L 118/60 97 10/13/19 21:41 57 L 109/67 97 10/13/19 21:36 58 L 115/66 97 10/13/19 21:31 64 124/60 96 10/13/19 21:30 59 L 95 10/13/19 21:27 92/66 L 98 10/13/19 21:20 55 L 108/57 L 98 10/13/19 21:15 53 L 89/47 L 99 10/13/19 21:10 54 L 97/48 L 99 10/13/19 21:05 54 L 101/49 L 98 10/13/19 21:00 54 L 95/49 L 98 10/13/19 20:55 54 L 99/51 L 99 10/13/19 20:50 55 L 109/56 L 98 10/13/19 20:45 55 L 110/61 100 10/13/19 20:40 56 L 111/53 L 100 10/13/19 20:36 57 L 125/63 96 10/13/19 20:30 61 99 10/13/19 20:26 66 128/86 97 10/13/19 20:22 63 116/89 96 10/13/19 20:12 60 98/43 L 97 10/13/19 20:06 58 L 130/69 98 10/13/19 20:01 59 L 98/49 L 96 10/13/19 20:00 37.2 C 54 L 97 10/13/19 19:55 53 L 95/50 L 97 10/13/19 19:51 54 L 87/46 L 98 10/13/19 19:45 53 L 97/51 L 97 10/13/19 19:41 55 L 94/48 L 97 10/13/19 19:35 53 L 87/47 L 97 10/13/19 19:30 53 L 81/43 L 97 10/13/19 19:25 53 L 85/48 L 97 10/13/19 19:20 54 L 91/47 L 97 10/13/19 19:16 58 L 16 97 10/13/19 19:15 54 L 95/51 L 96 10/13/19 19:10 53 L 83/44 L 99 10/13/19 19:05 53 L 85/43 L 99 10/13/19 19:00 53 L 83/45 L 98 10/13/19 18:55 53 L 85/46 L 98 10/13/19 18:50 53 L 81/44 L 99 10/13/19 18:45 53 L 85/44 L 99 10/13/19 18:40 54 L 83/44 L 99 10/13/19 18:35 54 L 87/46 L 99 10/13/19 18:30 54 L 82/43 L 100 10/13/19 18:25 54 L 82/42 L 98 10/13/19 18:23 53 L 80/43 L 98 10/13/19 18:20 54 L 80/44 L 99 10/13/19 18:15 53 L 83/42 L 100 10/13/19 18:10 53 L 81/43 L 100 10/13/19 18:09 50 L 10/13/19 18:05 53 L 87/44 L 100 Critical Care Time Critical Care Time: Yes I have personally spent 40 minutes of critical care time in the direct management of this patient. This is a life/limb threatening event. This includes time spent evaluating patient, direct bedside care, chart review, placing orders, interpretation of diagnostic studies, discussion with consultants, patient, and/or family members regarding treatment decisions, as well as other required patient management activities. This time is exclusive of all separately billable procedures, and teaching time and separate from and in addition to any other critical care service time. Resident Activity Tracking Resident Involvement: Resident Care Provided Care Provided: Adult Hospital Medicine (1) Fracture of distal end of fibula Encounter type: initial encounter Fracture morphology: unspecified fracture morphology Fracture type: closed Laterality: right Qualified Code(s): S82.831A - Other fracture of upper and lower end of right fibula, initial encounter for closed fracture (2) Pulmonary edema Chronicity: acute Qualified Code(s): J81.0 - Acute pulmonary edema (3) Respiratory failure Chronicity: acute Respiratory failure complication: hypoxia Qualified Code(s): J96.01 - Acute respiratory failure with hypoxia (4) Fall Encounter type: initial encounter Qualified Code(s): W19.XXXA - Unspecified fall, initial encounter
[2019-10-14 05:39] LABS: Estimated Average Glucose 111 mg/dl; Hemoglobin A1C 5.5 % (4.5-5.6)
[2019-10-14 05:55] LABS: Phosphorus 5.3 mg/dl (2.5-4.9)
[2019-10-14 06:14] LABS: iSTAT Allen Test Pass; iSTAT Arterial Blood Gas HCO3 27 meg/L (19-24); iSTAT Arterial Blood Gas pCO2 44 mmHg (35-46); iSTAT Arterial Blood Gas pH 7.39 (7.35-7.45); iSTAT Arterial Blood Gas pO2 81 mmHg (80-95); iSTAT Carbon Dioxide 28 mEq/l (24-31); iSTAT Site L Radial
[2019-10-14] MEDS: INSULIN ASPART 100 UNITS/ML 3 ML PEN SC SCH ×3 (06:53→17:44)
--- NOTE | 2019-10-14 07:11 | XRay Report ---
XR chest 1V portable CLINICAL HISTORY: resp failure dyspnea COMPARISON STUDY: 10/13/2019 FINDINGS: Endotracheal tube 4 cm above the rodger. Mild stable cardiac enlargement. Unchanged to slig htly improved components of congestive heart failure. Small bilateral pleural effusions. IMPRESSION: 1. Endotracheal tube 4 cm above the rodger. 2. Mild cardiomegaly with unchanged to slightly improved findings of congestive failure. The above report was generated using voice recognition software. It may contain grammatical, syntax or spelling errors. Electronically signed by: Carlos Boyce M.D. 10/14/2019 7:10 AM
--- NOTE | 2019-10-14 07:29 | Hospitalist Progress Note ---
Date of Service October 14, 2019 Assessment & Plan (1) Acute and chronic respiratory failure with hypoxia: Currently in ICU on mechanical ventilation (2) Hyperkalemia: She received dialysis last night and also receiving this AM, repeat K this AM was 5.9 still elevated with plan to recheck in PM (3) Acute kidney failure: As above Undetermined etiology (4) Afib: INR is 2.8, therapeutic On Warfarin 3mg PO daily (5) DM type 2 (diabetes mellitus, type 2): Was stable with glucose WNL Insulin per ICU protocol curently Hgb A1C was 5.6 (6) Asthma: Chronic currently intubated (7) Morbid obesity with body mass index of 50 or higher: BMI of 73 putting patient's health into fragile state Noted to have 30kg weight gain over past year from review of records Supervising Physician Co-Signing Physician Notes I saw the patient with the resident physician and confirmed lechuga portion of the history and physical examination. I also discussed the case with the intens ivist team. Given the patient's severity the ICU team is providing primary management. We will continue to follow for continuity of care once the patient is transferred out of the ICU. Subjective History Limited by Intubation She underwent dialysis last night. She is able to follow commands this AM such as squeeze my hands and able to track with eyes. Otherwise, no acute events. Physical Exam Constitutional: + ill appearing and + morbidly obese Eyes: PERRL, conjunctivae normal, anicteric sclerae Respiratory: + labored breathing mechanically ventilated with coarse breath sounds bilaterally Cardiovascular: Rate/Rhythm: regular rate distant heart sounds Gastrointestinal (Abdomen): Percussion/Palpation: abdomen soft; abdomen not rigid Skin: no rashes, warm and dry Neurologic: moves all extremities and + confused Psychiatric: Orientation: alert and oriented x 3 Results & Data Vital Signs (Past 12 Hours) Vital Signs Temp Pulse Resp BP Pulse Ox 10/14/19 06:14 60 16 94 10/14/19 06:01 63 134/66 95 10/14/19 06:00 61 96 10/14/19 05:45 54 L 91/43 L 97 10/14/19 05:30 54 L 92/39 L 97 10/14/19 05:15 54 L 97/44 L 97 10/14/19 05:00 54 L 102/43 L 97 10/14/19 04:45 55 L 113/59 L 96 10/14/19 04:30 54 L 119/57 L 96 10/14/19 04:17 52 L 105/54 L 96 10/14/19 04:00 37 C 53 L 70/38 L 96 10/14/19 03:32 54 L 78/35 L 95 10/14/19 03:30 54 L 66/37 L 95 10/14/19 03:15 56 L 82/53 L 96 10/14/19 03:00 55 L 84/45 L 95 10/14/19 02:45 57 L 96/55 L 95 10/14/19 02:32 58 L 74/63 L 94 10/14/19 02:30 59 L 95 10/14/19 02:26 56 L 16 96 10/14/19 02:00 63 100 10/14/19 01:45 57 L 106/72 96 10/14/19 01:30 54 L 85/47 L 98 10/14/19 01:15 55 L 88/44 L 97 10/14/19 01:01 58 L 111/62 96 10/14/19 01:00 56 L 96 10/14/19 00:45 58 L 117/70 97 10/14/19 00:30 54 L 105/50 L 96 10/14/19 00:15 53 L 82/47 L 97 10/14/19 00:00 37.0 C 52 L 90/45 L 98 10/13/19 23:45 52 L 86/44 L 97 10/13/19 23:30 52 L 83/43 L 96 10/13/19 23:25 53 L 16 96 10/13/19 23:15 52 L 86/44 L 97 10/13/19 23:10 54 L 97/48 L 96 10/13/19 23:05 53 L 84/44 L 97 10/13/19 23:00 52 L 80/40 L 97 10/13/19 22:56 52 L 82/41 L 97 10/13/19 22:51 53 L 106/56 L 96 10/13/19 22:46 54 L 116/66 96 10/13/19 22:40 57 L 116/62 97 10/13/19 22:36 63 112/62 96 10/13/19 22:31 56 L 119/64 96 10/13/19 22:30 56 L 95 10/13/19 22:26 56 L 123/60 96 10/13/19 22:22 55 L 116/62 99 10/13/19 22:17 56 L 119/61 97 10/13/19 22:11 56 L 94/61 L 96 10/13/19 22:05 56 L 108/68 96 10/13/19 22:04 57 L 17 96 10/13/19 22:01 57 L 107/73 97 10/13/19 22:00 57 L 94 10/13/19 21:56 58 L 126/57 L 96 10/13/19 21:51 57 L 96/81 L 97 10/13/19 21:46 57 L 118/60 97 10/13/19 21:41 57 L 109/67 97 10/13/19 21:36 58 L 115/66 97 10/13/19 21:31 64 124/60 96 10/13/19 21:30 59 L 95 10/13/19 21:27 92/66 L 98 10/13/19 21:20 55 L 108/57 L 98 10/13/19 21:15 53 L 89/47 L 99 10/13/19 21:10 54 L 97/48 L 99 10/13/19 21:05 54 L 101/49 L 98 10/13/19 21:00 54 L 95/49 L 98 10/13/19 20:55 54 L 99/51 L 99 10/13/19 20:50 55 L 109/56 L 98 10/13/19 20:45 55 L 110/61 100 10/13/19 20:40 56 L 111/53 L 100 10/13/19 20:36 57 L 125/63 96 10/13/19 20:30 61 99 10/13/19 20:26 66 128/86 97 10/13/19 20:22 63 116/89 96 10/13/19 20:12 60 98/43 L 97 10/13/19 20:06 58 L 130/69 98 10/13/19 20:01 59 L 98/49 L 96 10/13/19 20:00 37.2 C 54 L 97 10/13/19 19:55 53 L 95/50 L 97 10/13/19 19:51 54 L 87/46 L 98 10/13/19 19:45 53 L 97/51 L 97 10/13/19 19:41 55 L 94/48 L 97 10/13/19 19:35 53 L 87/47 L 97 10/13/19 19:30 53 L 81/43 L 97 Resident Activity Tracking Resident Involvement: Resident Care Provided Care Provided: Adult [facility]
[2019-10-14] MEDS ORDERED: SODIUM CHLORIDE 0.9% 1000ML 1,000 ML IV PRN (07:59)
[2019-10-14 08:28] LABS: Hematocrit (blood only) 26.8 % (37-47); Hemoglobin 8.1 g/dL (12.0-16.0)
[2019-10-14] MEDS: MONTELUKAST SODIUM 10 MG TABLET PO SCH (09:28)
[2019-10-14] MEDS: CEROVITE ADV FORMULA TAB PO SCH (09:28)
[2019-10-14] MEDS ORDERED: DOBUTamine / D5W 500 MG/250 ML BAG IV SCH (10:10)
[2019-10-14] MEDS ORDERED: NOVASOURCE RENAL 2.0 CAL 1000ML BAG OG SCH (11:00)
--- NOTE | 2019-10-14 11:26 | Hospitalist Progress Note ---
Date of Service October 14, 2019 Assessment & Plan (1) Acute kidney failure: [hello] use f4 to go to next use f4 to go to next use f4 to go to next use f4 to go to next use f4 to go to next Call 911 and go to the Emergency Room if: * You have tightness or pain in your chest that does not go away with rest or Nitroglycerin * You are very short of breath even with rest Call your doctor if any of the following symptoms or problems start or get worse: * Shortness of breath or difficulty breathing * Wake up at night short of breath * Chest pain * Cough * Swelling of your hands, fee, or legs * More fatigued or tired with your normal activity * Palpitations - sudden fast heart beats WEIGHT * Weigh yourself every morning after using the bathroom. * Use the same scale. * Wear the same amount of clothing. * Write your weight down on your chart. * Call your doctor if you gain more than 2-3 pounds in 1-2 days. MEDICATIONS * Use this discharge instruction sheet for instructions. * Take your medications at the time your doctor ordered. * Do not skip a dose of your medicines. * If you miss a dose of medicine, take as soon as possible, but DO NOT DOUBLE A DOSE. * Read your medicine information when you get home. * Know all of the side effects of your medicine. * Call your doctor's office if you have any side effects. * Be sure all of your doctors know what medicine and herbs you take (including cold, flu, and herbal medicine). * Pain Medicine: If you do not get relief from your pain, please call your doctor for help. Take the following with you to your follow-up doctor appointments: * Weight Chart * Medication List * List of questions Do not drink excessive alcohol, beer or wine. (2) Respiratory failure: (3) Acute and chronic respiratory failure with hypoxia: (4) Pulmonary edema: (5) Hyperkalemia: (6) Afib: (7) Fracture of distal end of fibula: (8) Sleep apnea: (9) Asthma: (10) CVA (cerebral vascular accident): (11) DM type 2 (diabetes mellitus, type 2): (12) Hypertension: (13) Morbid obesity with body mass index of 50 or higher: Results & Data Vital Signs (Past 12 Hours) Vital Signs Temp Pulse Pulse Resp BP Pulse Ox 12/06/19 11:00 70 93/53 L 10/14/19 10:45 67 129/50 L 10/14/19 10:30 60 138/55 L 96 10/14/19 10:15 56 L 117/52 L 97 10/14/19 10:00 53 L 107/50 L 96 10/14/19 09:45 53 L 105/49 L 95 10/14/19 09:30 54 L 108/52 L 95 10/14/19 09:15 53 L 107/53 L 94 10/14/19 09:00 54 L 115/46 L 95 10/14/19 08:45 37.6 C H 54 L 54 L 112/49 L 93 10/14/19 08:31 56 L 86/44 L 95 10/14/19 08:23 59 L 85/52 L 93 10/14/19 08:15 56 L 82/38 L 95 10/14/19 08:02 59 L 90/45 L 96 10/14/19 08:00 58 L 10/14/19 07:50 66 28 H 97 10/14/19 07:45 60 94/48 L 95 10/14/19 07:31 37.6 C H 61 112/51 L 96 10/14/19 07:27 62 120/51 L 96 10/14/19 07:01 57 L 93/42 L 97 10/14/19 06:46 57 L 119/54 L 96 10/14/19 06:14 60 16 94 10/14/19 06:01 63 134/66 95 10/14/19 06:00 61 96 10/14/19 05:45 54 L 91/43 L 97 10/14/19 05:30 54 L 92/39 L 97 10/14/19 05:15 54 L 97/44 L 97 10/14/19 05:00 54 L 102/43 L 97 10/14/19 04:45 55 L 113/59 L 96 10/14/19 04:30 54 L 119/57 L 96 10/14/19 04:17 52 L 105/54 L 96 10/14/19 04:00 37 C 53 L 70/38 L 96 10/14/19 03:32 54 L 78/35 L 95 10/14/19 03:30 54 L 66/37 L 95 10/14/19 03:15 56 L 82/53 L 96 10/14/19 03:00 55 L 84/45 L 95 10/14/19 02:45 57 L 96/55 L 95 10/14/19 02:32 58 L 74/63 L 94 10/14/19 02:30 59 L 95 10/14/19 02:26 56 L 16 96 10/14/19 02:00 63 100 10/14/19 01:45 57 L 106/72 96 10/14/19 01:30 54 L 85/47 L 98 10/14/19 01:15 55 L 88/44 L 97 10/14/19 01:01 58 L 111/62 96 10/14/19 01:00 56 L 96 10/14/19 00:45 58 L 117/70 97 10/14/19 00:30 54 L 105/50 L 96 10/14/19 00:15 53 L 82/47 L 97 10/14/19 00:00 37.0 C 52 L 90/45 L 98 10/13/19 23:45 52 L 86/44 L 97 10/13/19 23:30 52 L 83/43 L 96 10/13/19 23:25 53 L 16 96 10/13/19 23:15 52 L 86/44 L 97 PG Care Time/CCT Total # of Minutes Spent Total Time Spent with Patient: Total time spent is greater than 50% in coordination of care (as documented) at patient's floor/unit and/or counseling patient: (1) Acute kidney failure Acute renal failure type: unspecified Qualified Code(s): N17.9 - Acute kidney failure, unspecified (2) Respiratory failure Chronicity: acute Respiratory failure complication: hypoxia Qualified Code(s): J96.01 - Acute respiratory failure with hypoxia (3) Pulmonary edema Chronicity: acute Qualified Code(s): J81.0 - Acute pulmonary edema (4) Fracture of distal end of fibula Encounter type: initial encounter Fracture morphology: unspecified fracture morphology Fracture type: closed Laterality: right Qualified Code(s): S82.831A - Other fracture of upper and lower end of right fibula, initial encounter for closed fracture
--- NOTE | 2019-10-14 12:11 | Nephrology Progress Note ---
Date of Service October 14, 2019 Assessment & Plan (1) Acute and chronic respiratory failure with hypoxia: Remains on ventilator support. Bronch preformed yesterday at bedside. Cultures pending. Will attempt fluid removal with HD today. (2) Hyperkalemia: s/p emergent hemodialysis yesterday. Additional HD today for clearance and fluid removal. Will run for 3 hours with a 300 Qb and 2K bath. EFRAÍN has been held. (3) Acute kidney failure: Consistent with ATN and/or HRS. IJ catheter placed 10/13 and first dialysis treatment completed 10/13. No renal imaging available for review. Discussed with primary team. Possible non contrast CT scan today. Will send UA/micro today. EFRAÍN, Januvia and metformin have been held. (4) Afib: Hold amiodarone for bradycardia and hypotension. Sinus bradycardia with first degree AV block. (5) DM type 2 (diabetes mellitus, type 2): (6) Asthma: No obvious exacerbation Albuterol nebs q 4 hours prn Duonebs Q 6 hours scheduled. (7) Morbid obesity with body mass index of 50 or higher: Subjective Completed HD yesterday with hypotension. Levophed gtt started overnight. Seen and evaluated this AM prior to and during hemodialysis. She was tolerating HD reasonably well. Oxygenating acceptably on 45% FIO2. Remains in sinus bradycardi a. Low grade fevers noted. Urine output remains reduced. Review of Systems Review of Systems: Unobtainable due to endotracheal tube Physical Exam Constitutional: + morbidly obese and + mechanically ventilated; no acute distress Eyes: + anicteric sclerae; no conjunctival abnormality Neck: normal visual inspection and + thick neck Respiratory: symmetric chest movement Auscultation: + bronchovesicular breath sounds Cardiovascular: Rate/Rhythm: + bradycardic Heart Sounds: no murmur Extremities: + edema Gastrointestinal (Abdomen): Inspection/Auscultation: + significant pannus Percussion/Palpation: abdomen soft Musculoskeletal: Extremities: no cyanosis and no clubbing Skin: normal turgor; no rashes Results & Data Vital Signs (Past 12 Hours) Vital Signs Temp Pulse Pulse Resp BP Pulse Ox 10/14/19 11:45 62 117/46 L 10/14/19 11:30 62 108/43 L 10/14/19 11:15 66 127/54 L 10/14/19 11:00 70 93/53 L 10/14/19 10:45 67 129/50 L 10/14/19 10:39 77 21 96 10/14/19 10:30 60 138/55 L 96 10/14/19 10:15 56 L 117/52 L 97 10/14/19 10:00 53 L 107/50 L 96 10/14/19 09:45 53 L 105/49 L 95 10/14/19 09:30 54 L 108/52 L 95 10/14/19 09:15 53 L 107/53 L 94 10/14/19 09:00 54 L 115/46 L 95 10/14/19 08:45 37.6 C H 54 L 54 L 112/49 L 93 10/14/19 08:31 56 L 86/44 L 95 10/14/19 08:23 59 L 85/52 L 93 10/14/19 08:15 56 L 82/38 L 95 10/14/19 08:02 59 L 90/45 L 96 10/14/19 08:00 58 L 10/14/19 07:50 66 28 H 97 10/14/19 07:45 60 94/48 L 95 10/14/19 07:31 37.6 C H 61 112/51 L 96 10/14/19 07:27 62 120/51 L 96 10/14/19 07:01 57 L 93/42 L 97 10/14/19 06:46 57 L 119/54 L 96 10/14/19 06:14 60 16 94 10/14/19 06:01 63 134/66 95 10/14/19 06:00 61 96 10/14/19 05:45 54 L 91/43 L 97 10/14/19 05:30 54 L 92/39 L 97 10/14/19 05:15 54 L 97/44 L 97 10/14/19 05:00 54 L 102/43 L 97 10/14/19 04:45 55 L 113/59 L 96 10/14/19 04:30 54 L 119/57 L 96 10/14/19 04:17 52 L 105/54 L 96 10/14/19 04:00 37 C 53 L 70/38 L 96 10/14/19 03:32 54 L 78/35 L 95 10/14/19 03:30 54 L 66/37 L 95 10/14/19 03:15 56 L 82/53 L 96 10/14/19 03:00 55 L 84/45 L 95 10/14/19 02:45 57 L 96/55 L 95 10/14/19 02:32 58 L 74/63 L 94 10/14/19 02:30 59 L 95 10/14/19 02:26 56 L 16 96 10/14/19 02:00 63 100 10/14/19 01:45 57 L 106/72 96 10/14/19 01:30 54 L 85/47 L 98 10/14/19 01:15 55 L 88/44 L 97 10/14/19 01:01 58 L 111/62 96 10/14/19 01:00 56 L 96 10/14/19 00:45 58 L 117/70 97 10/14/19 00:30 54 L 105/50 L 96 10/14/19 00:15 53 L 82/47 L 97 Laboratory Results Laboratory Results - last 24 hr 10/13/19 10/13/19 10/13/19 10:42 13:49 14:40 WBC RBC Hgb Hct MCV MCH MCHC RDW Std Deviation RDW Coeff of Mehnaz Plt Count MPV Absolute Nucleated RBC Nucleated RBC % (auto) PT INR Sample Site R Radial POC pH 7.30 L POC pCO2 59 H POC pO2 124 H POC HCO3 29 H POC Total CO2 31 POC Base Excess 3.0 H POC ABG O2 Sat 98.0 H Darrel Test Pass O2 Delivery Device Ventilator POC O2 Rate 14 Minute Ventilation POC FiO2 100 Tidal Volume 500 PEEP 5 Sodium Potassium Chloride Carbon Dioxide Anion Gap BUN Creatinine Est Cr Clr Drug Dosing Est GFR ( Amer) Est GFR (Non-Af Amer) BUN/Creatinine Ratio Glucose POC Glucose 104 H Estimat Average Glucose Hemoglobin A1c Lactate Calcium Phosphorus Magnesium Troponin I Nasal Screen MRSA (PCR) Hep Bs Antigen Neg Hep Bs Antibody Non-Immune Hep Bs Antibody, Quant < 3.10 L 10/13/19 10/13/19 10/13/19 16:39 18:54 19:42 WBC RBC Hgb Hct MCV MCH MCHC RDW Std Deviation RDW Coeff of Mehnaz Plt Count MPV Absolute Nucleated RBC Nucleated RBC % (auto) PT INR Sample Site POC pH POC pCO2 POC pO2 POC HCO3 POC Total CO2 POC Base Excess POC ABG O2 Sat Darrel Test O2 Delivery Device POC O2 Rate Minute Ventilation POC FiO2 Tidal Volume PEEP Sodium 135 L Potassium 6.0 H D Chloride 102 Carbon Dioxide 27 Anion Gap 7.0 BUN 53 H Creatinine 2.27 H D Est Cr Clr Drug Dosing 38.6 Est GFR ( Amer) 25.4 Est GFR (Non-Af Amer) 21.9 BUN/Creatinine Ratio 23.2 H Glucose 96 POC Glucose 106 H Estimat Average Glucose Hemoglobin A1c Lactate Calcium 8.6 Phosphorus 5.3 H D Magnesium 2.8 H Troponin I Nasal Screen MRSA (PCR) Negative Hep Bs Antigen Hep Bs Antibody Hep Bs Antibody, Quant 10/13/19 10/14/19 10/14/19 21:04 02:11 02:11 WBC RBC Hgb Hct MCV MCH MCHC RDW Std Deviation RDW Coeff of Mehnaz Plt Count MPV Absolute Nucleated RBC Nucleated RBC % (auto) PT INR Sample Site POC pH POC pCO2 POC pO2 POC HCO3 POC Total CO2 POC Base Excess POC ABG O2 Sat Darrel Test O2 Delivery Device POC O2 Rate Minute Ventilation POC FiO2 Tidal Volume PEEP Sodium 137 Potassium 6.0 H Chloride 103 Carbon Dioxide 29 Anion Gap 5.0 BUN 54 H Creatinine 2.41 H Est Cr Clr Drug Dosing 36.3 Est GFR ( Amer) 23.6 Est GFR (Non-Af Amer) 20.4 BUN/Creatinine Ratio 22.5 H Glucose 84 POC Glucose 126 H Estimat Average Glucose Hemoglobin A1c Lactate Calcium 8.7 Phosphorus 5.3 H Magnesium 3.0 H Troponin I Nasal Screen MRSA (PCR) Hep Bs Antigen Hep Bs Antibody Hep Bs Antibody, Quant 10/14/19 10/14/19 10/14/19 03:58 03:58 03:58 WBC 7.63 RBC 2.98 L Hgb 8.1 L Hct 26.7 L MCV 89.6 MCH 27.2 MCHC 30.3 L RDW Std Deviation 60.7 H RDW Coeff of Mehnaz 18.6 H Plt Count 242 MPV 10.0 Absolute Nucleated RBC 0.02 H Nucleated RBC % (auto) 0.3 PT 27.1 H INR 2.8 H Sample Site POC pH POC pCO2 POC pO2 POC HCO3 POC Total CO2 POC Base Excess POC ABG O2 Sat Darrel Test O2 Delivery Device POC O2 Rate Minute Ventilation POC FiO2 Tidal Volume PEEP Sodium 136 Potassium 5.9 H Chloride 103 Carbon Dioxide 29 Anion Gap 4.0 BUN 55 H Creatinine 2.40 H Est Cr Clr Drug Dosing 36.5 Est GFR ( Amer) 23.8 Est GFR (Non-Af Amer) 20.5 BUN/Creatinine Ratio 22.8 H Glucose 88 POC Glucose Estimat Average Glucose Hemoglobin A1c Lactate Calcium 8.2 L Phosphorus Magnesium Troponin I Nasal Screen MRSA (PCR) Hep Bs Antigen Hep Bs Antibody Hep Bs Antibody, Quant 10/14/19 10/14/19 10/14/19 03:58 05:57 08:18 WBC RBC Hgb 8.1 L Hct 26.8 L MCV MCH MCHC RDW Std Deviation RDW Coeff of Mehnaz Plt Count MPV Absolute Nucleated RBC Nucleated RBC % (auto) PT INR Sample Site L Radial POC pH 7.39 POC pCO2 44 POC pO2 81 POC HCO3 27 H POC Total CO2 28 POC Base Excess 2.0 H POC ABG O2 Sat 96.0 H Darrel Test Pass O2 Delivery Device Ventilator POC O2 Rate 15 Minute Ventilation 7.8 POC FiO2 Tidal Volume 500 PEEP 12 Sodium Potassium Chloride Carbon Dioxide Anion Gap BUN Creatinine Est Cr Clr Drug Dosing Est GFR ( Amer) Est GFR (Non-Af Amer) BUN/Creatinine Ratio Glucose POC Glucose Estimat Average Glucose 111 Hemoglobin A1c 5.5 Lactate Calcium Phosphorus Magnesium Troponin I Nasal Screen MRSA (PCR) Hep Bs Antigen Hep Bs Antibody Hep Bs Antibody, Quant 10/14/19 10/14/19 10/14/19 08:18 08:18 11:28 WBC RBC Hgb Hct MCV MCH MCHC RDW Std Deviation RDW Coeff of Mehnaz Plt Count MPV Absolute Nucleated RBC Nucleated RBC % (auto) PT INR Sample Site POC pH POC pCO2 POC pO2 POC HCO3 POC Total CO2 POC Base Excess POC ABG O2 Sat Darrel Test O2 Delivery Device POC O2 Rate Minute Ventilation POC FiO2 Tidal Volume PEEP Sodium Potassium Chloride Carbon Dioxide Anion Gap BUN Creatinine Est Cr Clr Drug Dosing Est GFR ( Amer) Est GFR (Non-Af Amer) BUN/Creatinine Ratio Glucose POC Glucose 127 H Estimat Average Glucose Hemoglobin A1c Lactate 0.9 Calcium Phosphorus Magnesium Troponin I 0.215 H* Nasal Screen MRSA (PCR) Hep Bs Antigen Hep Bs Antibody Hep Bs Antibody, Quant PG Care Time/CCT Total # of Minutes Spent Total Time Spent with Patient: Total time spent is greater than 50% in coordination of care (as documented) at patient's floor/unit and/or counseling patient: 40 minutes of critical care time. (1) Acute kidney failure Acute renal failure type: unspecified Qualified Code(s): N17.9 - Acute kidney failure, unspecified
[2019-10-14] MEDS: FAMOTIDINE 20 MG in SYRINGE 3 ML IV SCH (13:51)
[2019-10-14] MEDS ORDERED: CEFEPIME 2,000 MG in SYRINGE 7.5 ML IV SCH (14:00)
[2019-10-14 15:24] LABS: Fibrinogen 442 mg/dl (184-400)
[2019-10-14] MEDS ORDERED: WARFARIN SOD 0.5 MG TAB PO SCH (16:00)
[2019-10-14] MEDS ORDERED: WARFARIN SOD 1 MG TAB PO SCH (16:00)
--- NOTE | 2019-10-14 17:43 | Billing Data ---
Coding Level of Care Code Critical Care 1st 30-74 mins
[2019-10-14] MEDS ORDERED: fentaNYL citrate 100 MCG/2 ML VIAL IV PRN ×2 (18:16)
[2019-10-14] MEDS ORDERED: LEVOTHYROXINE SODIUM IV SCH (21:00)
[2019-10-14] MEDS: ATORVASTATIN 40 MG TAB PO SCH (23:27)
[2019-10-15] MEDS: INSULIN ASPART 100 UNITS/ML 3 ML PEN SC SCH ×4 (02:50→17:24)
[2019-10-15 04:59] LABS: Hematocrit (blood only) 26.2 % (37-47); Mean Corpuscular Hemoglobin 27.6 pg (25-34); Mean Corpuscular Hgb Conc 30.5 g/dL (32-36); Mean Corpuscular Volume 90.3 fL (80-100); Mean Platelet Volume 9.1 fL (7.4-10.4); Platelet Count 218 K/uL (130-400); RDW Coefficient of Variation 18.5 % (11.5-14.5); RDW Standard Deviation 60.6 fL (36.4-46.3); White Blood Count 6.94 K/uL (4.8-10.8)
[2019-10-15 05:13] LABS: INR 3.5 (0.9-1.1); Prothrombin Time 32.9 Seconds (9.0-12.0)
[2019-10-15 05:32] LABS: BUN Creatinine Ratio 21.5 (10-20); Creatinine Clr Calc Pharmacy 50.6 ml/min; Est GFR (African American) 35.3; Est GFR (Non-African American) 30.5; Potassium 4.5 mmol/L (3.5-5.1)
--- NOTE | 2019-10-15 06:44 | Critical Care Progress Note ---
Date of Service October 15, 2019 Assessment & Plan (1) Admitted to intensive care unit: Reason Critically Ill: Lottie is a critically ill 64-year-old female who presented the hospital with acute hypoxic respiratory failure and DIANNE and who is been transferred to the ICU for acute hypoxic respiratory failure, impending cardiac arrest, and hyperkalemia. Overview: Overall clear appears to be improving. Her respiratory status is improved, and she is breathing comfortably on nasal cannula this morning. She does not tolerate face mask BiPAP well, attempts are being made to pain her nasal pillow from home. She is alert and well-oriented today, and in no acute distress. Given the findings of chronic aspiration on initial intubation, will not perform bedside swallow and will keep n.p.o. pending formal PACKAGING MECHANIC consult. She has a history of A. fib, amnio held with other oral meds pending PACKAGING MECHANIC eval. Warfarin held, INR supratherapeutic today at 3.5. Normal sinus rhythm overnight. Secondary concern, her right hip ulcer is been present for many years, was last biopsied several years ago but is continued to worsen with moderate stability while on Augmentin INSTRUMENT LENS GENERATOR. Given chronic nature with persistent inflammation would be reasonable to pursue biopsy either following downgrade or as outpatient. She is doing well, stable for downgrade. Neuro - CAM ICU: Negative Sedation: Midazolam push PRN Analgesia: Fentanyl every 2 hours as needed Held INSTRUMENT LENS GENERATOR gabapentin 3 times daily for MS Cardiac - Near cardiac arrest 2/2 hyperkalemia, congestive heart failure Emergent HD catheter placed, dialysis as below TTE: Mild concentric LVH, LVEF 50-55%, mild RV dilation, elevated RV systolic pressure (40-55 mmHg), moderate tricuspid regurg. BMP 7187 Initial troponin negative, morning Trop at 0.215, likely demand ischemia. Troponins downtrending INSTRUMENT LENS GENERATOR amiodarone held Continue atorvastatin 40 mg every afternoon -Off pressors History of A. fib Warfarin 3 mg p.o. daily held, converted to 1 mg / 0.5 mg alternating INR daily, likely to fluctuate in the setting of antibiotic use Warfarin held today for supratherapeutic INR 3.5 Respiratory - Acute hypoxic, hypercarbic respiratory failure 2/2 fluid overload Status post intubation, weaned to nasal cannula. Continue respiratory support Preintubation ABG (7.16/65/78/23), post (7.30/59/124/29) Vocal cords edematous during intubation, concerning for aspiration Kidney function improving, improved with dialysis as below - Underlying PHTN with right heart strain, ?2/2 KHALIDA. -Pending PACKAGING MECHANIC consult - s/p bronch 10/14. Blood cultures, bronc cultures no growth to date Breathing well on nasal cannula, reinitiate CPAP/BiPAP when available with home nasal pillow which is to be brought in by a friend Right lower infiltrate concerning for pneumonia See ID below Asthma Continue montelukast 10 mg daily GI - N.p.o. -Pending PACKAGING MECHANIC consult prior to any orals given signs of chronic aspiration RENAL/LYTES - ARF on CKD with severe hyperkalemia, urine output improving Potassium 7.3 before arrival. 4.5 today, following dialysis 3 L removed via dialysis, 1.4 L out via Heard. Cumulative balance -191 mL Creatinine down trended to 1.73 following dialysis Strict I's and O's, Heard in place Nephrology consulted, further dialysis per their recommendations - Heard in place ENDO - Hypothyroidism Type 2 diabetes mellitus Hold INSTRUMENT LENS GENERATOR anti-glycemics ICU hyperglycemia protocol TSH 5.3, mildly elevated. Consider increase of Synthroid to 137 MCG and follow-up as outpatient - Random cortisol 20 HEME - Hemoglobin 8, stable Supratherapeutic INR, 3.5 in the setting of antibiotic use. Hold warfarin x1 No signs of bleeding on exam Monitor for bleeding in the setting of warfarin anticoagulation ID - Infiltrate suspicious for right Pneumonia Chest x-ray persistent right pulmonary edema, improved from prior. Continue cefepime Afebrile this morning trend fever curve MRSA screen negative Procalcitonin 10/13/2019 0.13 Lactate initially elevated to 2.8, suspect 2/2 ischemia with hypoxic respiratory failure Lactate repeat downtrended, normalized - bronch, blood cultures pending ngtd Right hip ulcer Chronic, present on admission On INSTRUMENT LENS GENERATOR Augmentin therapy, Augmentin currently held - Abx as above INTEGUMENTARY - Right hip ulcer, management as above LINES/IV ACCESS - PIVs intact. DVT PROPHYLAXIS - Warfarin Thank you for allowing us to be part of this patient's care. Please refer to Dr. Steward's documentation for any further recommendations. (2) Acute kidney failure: (3) Acute and chronic respiratory failure with hypoxia: (4) Hypoxia: (5) Hyperkalemia: (6) Pulmonary edema: (7) Respiratory failure: (8) Morbid obesity: (9) Fracture of distal end of fibula: (10) Fall: (11) Chronic joint pain: Supervising Physician Co-Signing Physician Notes Dr. Berger was resident physician during care of patient. I separately evaluated patient for lechuga portions of the history and the exam. I was present during the critical portion of medical decision making, and I discussed the case with the resident. I generally agree with the findings and plan. Discussed with speech therapy, plan for video swallow study Thursday. Patient dislikes full facemask for noninvasive ventilation attempting to have nasal pillow home CPAP machine brought in. Would continue current treatment, hopefully there will be recovery of her kidney function. Patient may benefit from a extensive discussion to further elucidate her understanding of her medical conditions as well as long-term goals. If she requires dialysis in the setting of stage IV to stage V chronic kidney disease with con commitment obesity hypoventilation syndrome she is certainly at profoundly increased risk for respiratory arrest. Accordingly I would be very judicious with sedating medications. Patient has remained extubated had and has tolerated 2 rounds of dialysis, patient is stable for downgrade out of ICU. Subjective Clear seen at the bedside this morning. She is alert and oriented, and in no acute distress. She is breathing comfortably on 4 L of nasal cannula. She rep orts that she has difficulty tolerating the BiPAP mask, her friend is attempting to see if they can bring her nasal pillow from home. As per Pura does not have nasal pillows at this time. She denies fever, chills, sweats, worsening pain, numbness, tingling, shortness of breath, difficulty breathing, chest pain this morning. She feels overall a little fatigued, "75% "back to her normal baseline. Review of Systems Review of Systems: Constitutional: Denies fever, chills. Endorses fatigue Eyes: Denies vision change ENT: Denies sinus pain, ear pain. Endorses scratchy/slight sore throat following extubation. Cardiovascular: Denies Chest pain, chest pressure, palpitations Respiratory: Denies shortness of breath, cough, sputum production, difficulty breathing this morning Gastrointestinal: Denies abdominal pain, nausea, vomiting Genitourinary: Denies pain with dysuria Musculoskeletal: Denies local fatigue/weakness, nonfocal. Endorses chronic right hip ulcer for many years Integumentary: Right hip ulcer for many years, otherwise denies new rash/lesions. Neurological: Denies headache, focal weakness today Physical Exam Physical Exam: General: Breathing comfortably on room air. Alert and oriented x3. Follows 1 and 2 step commands. No acute distress. HEENT: Atraumatic, normocephalic. Right IJ in place, nasal cannula in place. Neck supple. Pulm: Diminished, coarse rhonchi present. Trace expiratory wheeze on forced expiration. No acute respiratory distress. Cardiac: RRR, heart sounds distant but no murmurs rubs or gallops appreciated.. Radial pulses intact and symmetrical. Abdominal: Obese, softly distended. Bowel sounds intact. Extremities: Diffuse pitting edema. Right hip ulcer unchanged, continues to be with erythema, blanching present. Feet warm, dry bilaterally. Neuro: Pupils equal and reactive to light and accommodation. EOM intact. Visual acuity grossly intact. Hearing grossly intact. Facial sensation intact in all distributions. Sensation intact to soft touch in fingertips and toes bilaterally. Associate Property Manager strength intact, ankle plantarflexion/dorsiflexion intact bilaterally and symmetrical. Results & Data Vital Signs (Past 12 Hours) Vital Signs Temp Pulse Resp BP Pulse Ox 10/15/19 06:00 36.5 C 56 L 106/49 L 97 10/15/19 05:00 55 L 101/48 L 97 10/15/19 04:01 36.8 C 55 L 123/40 L 97 10/15/19 03:00 55 L 130/65 97 10/15/19 02:00 56 L 121/49 L 99 10/15/19 01:00 56 L 94/56 L 98 10/15/19 00:00 57 L 100/47 L 98 10/14/19 23:57 63 24 99 10/14/19 23:21 58 L 106/51 L 96 10/14/19 23:00 61 106/51 L 93 10/14/19 22:00 61 108/65 96 10/14/19 21:00 63 92/42 L 96 10/14/19 20:43 37.3 C 61 90/44 L 95 10/14/19 19:00 67 94/68 L 86 L Resident Activity Tracking Resident Involvement: Resident Care Provided Care Provided: Adult Hospital Medicine (1) Fracture of distal end of fibula Encounter type: initial encounter Fracture morphology: unspecified fracture morphology Fracture type: closed Laterality: right Qualified Code(s): S82.831A - Other fracture of upper and lower end of right fibula, initial encounter for closed fracture (2) Acute kidney failure Acute renal failure type: unspecified Qualified Code(s): N17.9 - Acute kidney failure, unspecified (3) Pulmonary edema Chronicity: acute Qualified Code(s): J81.0 - Acute pulmonary edema (4) Respiratory failure Chronicity: acute Respiratory failure complication: hypoxia Qualified Code(s): J96.01 - Acute respiratory failure with hypoxia (5) Fall Encounter type: initial encounter Qualified Code(s): W19.XXXA - Unspecified fall, initial encounter
--- NOTE | 2019-10-15 08:30 | XRay Report ---
XR chest 1V portable HISTORY: Status post extubation. Shortness of breath. COMPARISON: Chest 10/14/2019. FINDINGS: Endotracheal tube is been removed. Right subclavian Port-A-Cath terminates at the distal SV C. Right jugular central venous catheter terminates at the junction of the jugular/brachiocephalic ve ins. This remains unchanged. No pneumothorax. The heart remains enlarged. Improved aeration within th e lung bases. Suspect small bilateral pleural effusions. Mild pulmonary edema has improved. IMPRESSION: 1. Improvement in the pulmonary edema and bibasilar densities/effusions. 2. Endotracheal tube has been removed. 3. The remaining support lines are unchanged in position. Electronically signed by: Freddy Aden M.D. 10/15/2019 8:29 AM
[2019-10-15] MEDS: MONTELUKAST SODIUM 10 MG TABLET PO SCH (08:43)
[2019-10-15] MEDS: LEVOTHYROXINE SODIUM 56 MCG in SYRINGE 0 ML IV SCH (09:58)
--- NOTE | 2019-10-15 12:11 | Nephrology Progress Note ---
Date of Service October 15, 2019 Assessment & Plan (1) Acute and chronic respiratory failure with hypoxia: Extubated. (2) Hyperkalemia: Resolved and potassium has been normal after emergency dialysis for 2 days. (3) Acute kidney failure: 64-year-old female, admitted from [facility] with shortness of breath and respiratory failure requiring intubation. Found to have acute kidney injury and hyperkalemia with potassium of 7 requiring emergency dialysis. Consistent with ATN and/or HRS. IJ catheter placed 10/13 and first dialysis treatment completed 10/13 and had 2nd treatment on 10/14/2019 mainly for UF.. EFRAÍN, Januvia and metformin have been held. Renal function has been stable with acceptable electrolytes. Volume status improved, extubated. Started to make urine. --no need for dialysis today, will continue to monitor for renal recovery. If renal function stays stable, electrolyte acceptable and no need for dialysis tomorrow, will plan to remove the dialysis catheter --give Lasix 40 milligram IV x1 dose today --monitor intake and output Will follow (4) Afib: (5) DM type 2 (diabetes mellitus, type 2): ADA diet I ordered sliding scale for now. (6) Asthma: No obvious exacerbation Albuterol nebs q 4 hours prn Duonebs Q 6 hours scheduled. (7) Morbid obesity with body mass index of 50 or higher: Subjective Care was seen and examined this morning. She is feeling much denies any shortness of breath or chest pain. She was extubated yesterday currently on nasal cannula oxygen. Renal function stable with acceptable electrolytes. Urine output low but room slightly improved to 600 mL over last 24 hours Review of Systems Review of Systems: All systems reviewed & are unremarkable except as noted in HPI & below Physical Exam Constitutional: well developed and well nourished; no acute distress Respiratory: normal respiratory effort Auscultation: + diminished lung sounds and + crackles Cardiovascular: RRR, no murmur, no edema Neurologic: moves all extremities and awake; not confused Psychiatric: A+Ox3, euthymic affect Results & Data Vital Signs (Past 12 Hours) Vital Signs Temp Pulse BP Pulse Ox 10/15/19 06:00 36.5 C 56 L 106/49 L 97 10/15/19 05:00 55 L 101/48 L 97 10/15/19 04:01 36.8 C 55 L 123/40 L 97 10/15/19 03:00 55 L 130/65 97 10/15/19 02:00 56 L 121/49 L 99 10/15/19 01:00 56 L 94/56 L 98 PG Care Time/CCT Total # of Minutes Spent Total Time Spent with Patient: Total time spent is greater than 50% in coordination of care (as documented) at patient's floor/unit and/or counseling patient: (1) Acute kidney failure Acute renal failure type: unspecified Qualified Code(s): N17.9 - Acute kidney failure, unspecified
[2019-10-15] MEDS: FAMOTIDINE 20 MG in SYRINGE 3 ML IV SCH (13:51)
[2019-10-15] MEDS: CEFEPIME 1,000 MG in SYRINGE 0 ML IV SCH (13:51)
--- NOTE | 2019-10-15 14:10 | Billing Data ---
Coding Level of Care Code 69061 Subseq Hosp Care Lvl 3
--- NOTE | 2019-10-15 15:29 | Hospitalist Progress Note ---
Date of Service October 15, 2019 Assessment & Plan (1) Acute and chronic respiratory failure with hypoxia: Concern for chronic aspiration considering edematous vocal cords on intubation Extubate yesterday, doing well this morning, transferred to PCU for continued care Continue broad coverage for pneumonia, bronch/blood cultures pending ngtd, MRSA screen negative, continue cefepime Hold all p.o. medications, keep n.p.o., speech consult, will likely have swallow study early Thursday morning (2) Acute kidney failure: Nephrology following, appreciate recommendations Required emergency dialysis, potassium is 7improved today to 4.5 Creatinine continues to improve (3) Morbid obesity: Likely an element of obesity hypoventilation syndrome (4) DM type 2 (diabetes mellitus, type 2): Continue insulin, hold oral medications including metformin, sitagliptin (5) Hypertension: Pressures are currently soft, continue to observe Hold p.o. antihypertensivelisinopril 20 mg, metoprolol 37.5 twice daily (6) Hypothyroid: Continue IV levothyroxine (7) Afib: Currently controlled, will continue to hold amiodarone as patient cannot take p.o. at this time Currently supratherapeutic, will hold warfarin and follow INR (8) Hyperkalemia: Improving, continue to follow BMP (9) Asthma: Albuterol nebulizer as needed (10) Skin sore: Right hip ulcer--Continue to worsen with Augmentin ppx, would recommend biopsy Wound consult, continue wound care Supervising Physician Co-Signing Physician Notes I saw the patient the resident physician and confirmed lechuga portions of the history and physical examination. I also discussed the case with the ICU team. The patient herself awake alert and oriented. She is markedly improved since I saw her yesterday at which time she was still intubated. She is breathing comfortably this morning on a nasal cannula. She has no complaints -she does some questions regarding her condition and care moving forward and these were all answered. Acute on chronic respiratory failure with hypoxia, question aspiration Continue cefepime; bronchial cultures pending N.p.o. except for water Video swallow on Thursday Atrial fibrillation Amiodarone and Coumadin on hold as she cannot take oral Fortunately she is mildly supratherapeutic today in terms of her INR Hyperkalemia Improved Lasix 40 mg IV x1 Recheck in a.m. Hypothyroidism Continue IV Synthroid Hypertension Lisinopril is on hold, although this may be discontinued indefinitely due to her hyperkalemia upon admission Diabetes All of her oral medications are on hold Sliding scale insulin Subjective Patient was sleeping earlier this morning, awake on attending rounds. She reports feeling much better, breathing better. Denies any acute symptoms at this time. Physical Exam 2 Constitutional: WD/WN, vitals as above + obese Eyes: PERRL, conjunctivae normal, anicteric sclerae ENMT: external ear and nose normal, oropharynx normal Neck: trachea midline, no thyromegaly Respiratory: normal respiratory effort, lungs clear to auscultation Cardiovascular: RRR, no murmur, no edema Gastrointestinal (Abdomen): normal bowel sounds, soft, nontender, no hepatosplenomegaly Results & Data Vital Signs (Past 12 Hours) Vital Signs Temp Pulse BP Pulse Ox 10/15/19 06:00 36.5 C 56 L 106/49 L 97 10/15/19 05:00 55 L 101/48 L 97 10/15/19 04:01 36.8 C 55 L 123/40 L 97 Resident Activity Tracking Resident Involvement: Resident Care Provided Care Provided: Adult Hospital Medicine (1) Acute kidney failure Acute renal failure type: unspecified Qualified Code(s): N17.9 - Acute kidney failure, unspecified
[2019-10-15] MEDS ORDERED: FUROSEMIDE 20 MG in SYRINGE 0 ML IV STA (16:13)
[2019-10-16] MEDS: INSULIN ASPART 100 UNITS/ML 3 ML PEN SC SCH ×4 (01:15→17:28)
[2019-10-16] MEDS ORDERED: MoRPHine SULFATE 4 MG/ML 1 ML CARP\\VIAL IV PRN (02:01)
[2019-10-16 06:01] LABS: Hemoglobin 8.3 g/dL (12.0-16.0); Mean Corpuscular Hemoglobin 27.8 pg (25-34); Mean Corpuscular Hgb Conc 30.7 g/dL (32-36); Mean Corpuscular Volume 90.3 fL (80-100); Mean Platelet Volume 9.3 fL (7.4-10.4); Platelet Count 234 K/uL (130-400); RDW Coefficient of Variation 18.2 % (11.5-14.5); RDW Standard Deviation 59.5 fL (36.4-46.3); Red Blood Count 2.99 M/uL (4.2-5.4); White Blood Count 5.34 K/uL (4.8-10.8)
[2019-10-16 06:22] LABS: Prothrombin Time 35.1 Seconds (9.0-12.0)
[2019-10-16 06:27] LABS: Albumin Level 2.2 gm/dl (3.4-5.0); BUN Creatinine Ratio 22.8 (10-20); Bilirubin Direct 0.1 mg/dl (0-0.2); Calcium 8.6 mg/dl (8.5-10.1); Creatinine Clr Calc Pharmacy 64.6 ml/min; Est GFR (African American) 48.9; Est GFR (Non-African American) 42.2; INR 3.8 (0.9-1.1); Potassium 4.5 mmol/L (3.5-5.1)
[2019-10-16 06:30] LABS: Bilirubin,Total 0.5 mg/dl (0.2-1); Total Protein 5.8 gm/dl (6.4-8.2)
--- NOTE | 2019-10-16 07:08 | XRay Report ---
XR chest 1V portable HISTORY: 64 years-old Female ahrf, intubation acute shortness of breath COMPARISON: Chest radiograph 10/15/2019 TECHNIQUE: Portable AP view of the chest FINDINGS: Cardiac silhouette is enlarged, unchanged. Right IJ central venous catheter and right subclavian Infu se-a-Port catheter appears unchanged. There is unchanged pulmonary edema. Trace pleural effusions. No pneumothorax. No new focal airspace consolidation. Persistent left lung base opacities suggest proba ble atelectasis. Left shoulder arthroplasty. Degenerative changes of the right shoulder and spine. IMPRESSION: 1. Cardiomegaly with unchanged pulmonary edema. 2. Trace pleural effusions persist. The above report was generated using voice recognition software. It may contain grammatical, syntax o r spelling errors. Electronically signed by: Silver Bateman M.D. 10/16/2019 7:07 AM
[2019-10-16] MEDS ORDERED: GLYCERIN ADULT 12 SUPP/BOX SUPP PR PRN (08:46)
[2019-10-16] MEDS: LEVOTHYROXINE SODIUM 56 MCG in SYRINGE 0 ML IV SCH (09:27)
[2019-10-16] MEDS: D5W AND NSS 1,000 ML IV SCH ×2 (09:27→20:48)
--- NOTE | 2019-10-16 10:55 | Nephrology Progress Note ---
Date of Service October 16, 2019 Assessment & Plan (1) Acute and chronic respiratory failure with hypoxia: Extubated. (2) Hyperkalemia: Resolved and potassium has been normal after emergency dialysis for 2 days. (3) Acute kidney failure: 64-year-old female, admitted from [facility] with shortness of breath and respiratory failure requiring intubation. Found to have acute kidney injury and hyperkalemia with potassium of 7 requiring emergency dialysis. Consistent with ATN and/or HRS. IJ catheter placed 10/13 and first dialysis treatment completed 10/13 and had 2nd treatment on 10/14/2019 mainly for UF.. EFRAÍN, Januvia and metformin have been held. Renal function has been stable with acceptable electrolytes. Volume status improved, extubated. Started to make urine. Acute kidney injury resolving rapidly, creatinine down to 1.3, electrolyte acceptable. Blood pressure, volume status acceptable. --Harshad request intensive care unit to remove the dialysis catheter, expect renal function to continue to improve. --monitor intake and output Will sign off, no further nephrology follow-up needed. (4) Afib: (5) DM type 2 (diabetes mellitus, type 2): ADA diet I ordered sliding scale for now. (6) Asthma: No obvious exacerbation Albuterol nebs q 4 hours prn Duonebs Q 6 hours scheduled. (7) Morbid obesity with body mass index of 50 or higher: Juan Da Silva was seen and examined in her room this morning. Overall she is feeling well, denies shortness of breath, chest pain. Blood pressure, volume status acceptable. Nonoliguric. Renal function improved and creatinine down to 1.3. Review of Systems Review of Systems: All systems reviewed & are unremarkable except as noted in HPI & below Physical Exam Constitutional: well developed and well nourished; no acute distress Respiratory: normal respiratory effort Auscultation: + diminished lung sounds and + crackles Cardiovascular: RRR, no murmur, no edema Neurologic: moves all extremities and awake; not confused Psychiatric: A+Ox3, euthymic affect Results & Data Vital Signs (Past 12 Hours) Vital Signs Temp Pulse Pulse Pulse Resp BP Pulse Ox 10/16/19 08:00 58 L 10/16/19 07:08 36.7 C 61 18 140/71 94 10/16/19 04:15 36.9 C 62 20 148/63 H 96 10/16/19 00:11 36.7 C 59 L 19 134/60 95 PG Care Time/CCT Total # of Minutes Spent Total Time Spent with Patient: Total time spent is greater than 50% in coordination of care (as documented) at patient's floor/unit and/or counseling patient: (1) Acute kidney failure Acute renal failure type: unspecified Qualified Code(s): N17.9 - Acute kidney failure, unspecified
[2019-10-16] MEDS: FAMOTIDINE 20 MG in SYRINGE 3 ML IV SCH (12:54)
[2019-10-16] MEDS: CEFEPIME 1,000 MG in SYRINGE 0 ML IV SCH (12:54)
[2019-10-16] MEDS ORDERED: CEFEPIME 1,000 MG in SYRINGE 0 ML IV ONE (14:00)
--- NOTE | 2019-10-16 14:31 | Hospitalist Progress Note ---
Date of Service October 16, 2019 Results & Data Vital Signs (Past 12 Hours) Vital Signs Temp Pulse Pulse Pulse Resp BP BP 10/16/19 11:45 60 16 141/62 H 10/16/19 11:31 60 17 10/16/19 11:30 60 20 152/74 H 10/16/19 11:16 57 L 21 10/16/19 11:15 57 L 13 153/67 H 10/16/19 11:01 58 L 19 10/16/19 11:00 57 L 22 152/69 H 10/16/19 10:46 57 L 20 10/16/19 10:45 56 L 13 151/73 H 10/16/19 10:42 58 L 21 163/72 H 10/16/19 10:30 58 L 10/16/19 10:20 61 10/16/19 08:00 58 L 10/16/19 07:08 36.7 C 61 18 140/71 10/16/19 04:15 36.9 C 62 20 148/63 H Pulse Ox 10/16/19 11:45 95 10/16/19 11:31 95 10/16/19 11:30 95 10/16/19 11:16 94 10/16/19 11:15 94 10/16/19 11:01 93 10/16/19 11:00 94 10/16/19 10:46 95 10/16/19 10:45 94 10/16/19 10:42 97 10/16/19 10:30 10/16/19 10:20 10/16/19 08:00 10/16/19 07:08 94 10/16/19 04:15 96
--- NOTE | 2019-10-16 16:43 | Hospitalist Progress Note ---
Date of Service October 16, 2019 Assessment & Plan (1) Acute and chronic respiratory failure with hypoxia: Concern for chronic aspiration considering edematous vocal cords on intubation Continues to do well today following extubation Continue broad coverage for pneumonia, bronch/blood cultures pending ngtd, MRSA screen negative, continue cefepime Hold all p.o. medications, keep n.p.o., speech consult, will likely have swallow study early Thursday morning (2) Acute kidney failure: Nephrology following, appreciate recommendations Required emergency dialysis, potassium is 7improved today to 4.5 Dialysis catheter removed, kidney injury resolving (3) Morbid obesity: Likely an element of obesity hypoventilation syndrome (4) DM type 2 (diabetes mellitus, type 2): Continue insulin, hold oral medications including metformin, sitagliptin Blood sugars were low this morning, added dextrose to fluids at 80 cc/h (5) Hypertension: Patient's pressures continue to go up, we are continuing to hold her home blood pressure medications as patient p.o. Patient's blood pressure goes above 170 systolic, recommend PRN dosing of hydralazine considering low heart rates. Hold p.o. antihypertensivelisinopril 20 mg, metoprolol 37.5 twice daily (6) Hypothyroid: Continue IV levothyroxine (7) Afib: Currently controlled, will continue to hold amiodarone as patient cannot take p.o. at this time Currently supratherapeutic, will hold warfarin and follow INR (8) Hyperkalemia: Improving, continue to follow BMP (9) Asthma: Albuterol nebulizer as needed (10) Skin sore: Right hip ulcer--Continue to worsen with Augmentin ppx, would recommend biopsy Wound consult, continue wound care Supervising Physician Co-Signing Physician Notes I saw the patient with the resident physician confirmed lechuga portion of the history and physical exam. Agree with the impression and plan as noted above. Acute on chronic respiratory failure with hypoxia, question aspiration Continue cefepime; bronchial cultures pending N.p.o. except for water Video swallow tomorrow Atrial fibrillation Amiodarone and Coumadin on hold as she cannot take oral She remains mildly supratherapeutic today in terms of her INR Hyperkalemia Resolved Hypothyroidism Continue IV Synthroid Hypertension Lisinopril is on hold, although this may be discontinued indefinitely due to her hyperkalemia upon admission Hydralazine as needed Diabetes All of her oral medications are on hold; mildly hypoglycemic Dextrose added to the IV solution today Subjective Patient reports some bleeding out of her dialysis catheter last night. Catheter was removed by nephrology. She states that she feels constipated. Is doing well this morning, tolerating BiPAP in the evening. Review of Systems Review of Systems: All systems reviewed & are unremarkable except as noted in HPI & below Physical Exam Constitutional: WD/WN, vitals as above + obese Eyes: PERRL, conjunctivae normal, anicteric sclerae ENMT: external ear and nose normal, oropharynx normal Neck: trachea midline, no thyromegaly Respiratory: normal respiratory effort, lungs clear to auscultation Cardiovascular: RRR, no murmur, no edema Gastrointestinal (Abdomen): normal bowel sounds, soft, nontender, no hepatosplenomegaly Results & Data Vital Signs (Past 12 Hours) Vital Signs Temp Pulse Pulse Resp BP BP Pulse Ox 10/16/19 15:36 36.8 C 68 22 156/69 H 92 10/16/19 11:45 60 16 141/62 H 95 10/16/19 11:31 60 17 95 10/16/19 11:30 60 20 152/74 H 95 10/16/19 11:16 57 L 21 94 10/16/19 11:15 57 L 13 153/67 H 94 10/16/19 11:01 58 L 19 93 10/16/19 11:00 57 L 22 152/69 H 94 10/16/19 10:46 57 L 20 95 10/16/19 10:45 56 L 13 151/73 H 94 10/16/19 10:42 58 L 21 163/72 H 97 10/16/19 10:30 58 L 10/16/19 10:20 61 10/16/19 08:00 58 L 10/16/19 07:08 36.7 C 61 18 140/71 94 Resident Activity Tracking Resident Involvement: Resident Care Provided Care Provided: Adult Hospital Medicine (1) Acute kidney failure Acute renal failure type: unspecified Qualified Code(s): N17.9 - Acute kidney failure, unspecified
[2019-10-16] MEDS ORDERED: ACETAMINOPHEN 1,000 MG/100 ML VIAL IV PRN (16:58)
[2019-10-16] MEDS: ALBUTEROL 0.083% NEBU SOLN 3 ML VIAL NEB PRN ×2 (19:50→23:57)
[2019-10-16] MEDS ORDERED: HydrALAZINE HCL 20 MG/ML VIAL IV PRN (19:56)
[2019-10-16] MEDS: CEFEPIME 2,000 MG in SYRINGE 7.5 ML IV SCH (22:07)
[2019-10-17] MEDS: INSULIN ASPART 100 UNITS/ML 3 ML PEN SC SCH ×5 (00:56→20:40)
[2019-10-17] MEDS: CEFEPIME 2,000 MG in SYRINGE 7.5 ML IV SCH ×3 (05:55→22:27)
[2019-10-17 06:40] LABS: Basophils # (auto) 0.03 K/uL (0-0.2); Basophils % (auto) 0.5 %; Eosinophils # (auto) 0.22 K/uL (0-0.5); Eosinophils % (auto) 3.8 %; Hematocrit (blood only) 28.2 % (37-47); Hemoglobin 8.5 g/dL (12.0-16.0); Immature Granulocytes # (auto) 0.01 K/uL (0.00-0.02); Immature Granulocytes % (auto) 0.2 %; Lymphocytes # (auto) 0.35 K/uL (1.2-3.4); Lymphocytes % (auto) 6.1 %; Mean Corpuscular Hemoglobin 27.2 pg (25-34); Mean Corpuscular Hgb Conc 30.1 g/dL (32-36); Mean Corpuscular Volume 90.4 fL (80-100); Mean Platelet Volume 9.2 fL (7.4-10.4); Monocytes # (auto) 0.73 K/uL (0.11-0.59); Monocytes % (auto) 12.6 %; Neutrophils # (auto) 4.44 K/uL (1.4-6.5); Neutrophils % (auto) 76.8 %; Platelet Count 248 K/uL (130-400); RDW Coefficient of Variation 17.6 % (11.5-14.5); RDW Standard Deviation 58.2 fL (36.4-46.3); Red Blood Count 3.12 M/uL (4.2-5.4); White Blood Count 5.78 K/uL (4.8-10.8)
--- NOTE | 2019-10-17 07:10 | XRay Report ---
XR chest 1V portable CLINICAL HISTORY: ahrf, intubation tube position COMPARISON STUDY: 10/16/2019 FINDINGS: Central catheter remains in the superior vena cava. Similar to minimally improved component s of congestive failure/pulmonary edema. Diaphragms are smooth. IMPRESSION: 1. Central catheter remains in superior vena cava. 2. Slightly improved findings of congestive failure/pulmonary edema. The above report was generated using voice recognition software. It may contain grammatical, syntax or spelling errors. Electronically signed by: Carlos Boyce M.D. 10/17/2019 7:08 AM
--- NOTE | 2019-10-17 07:12 | Hospitalist Progress Note ---
Date of Service October 17, 2019 Assessment & Plan (1) Acute and chronic respiratory failure with hypoxia: Concern for chronic aspiration considering edematous vocal cords on intubation Continues to do well today following extubation Continue broad coverage for pneumonia, bronch/blood cultures pending ngtd, MRSA screen negative, continue cefepime Hold all p.o. medications, keep n.p.o., speech consulted (2) Acute kidney failure: Nephrology following, appreciate recommendations Required emergency dialysis, potassium was 7improved today to 3.9 WNL Dialysis catheter removed, kidney injury resolved; Creatinine WNL 0.99 (3) Morbid obesity: Likely an element of obesity hypoventilation syndrome (4) DM type 2 (diabetes mellitus, type 2): Continue insulin, hold oral medications including metformin, sitagliptin Blood sugars were 118 this morning, okay to continue with dextrose NSS fluids at 80 cc/h since she had previous low glucose readings and NPO for swallow, okay for diabetic and heart healthy diet after okay from swallowing study (5) Hypertension: Patient's pressures are stable; her systolic values are elevated, we are continuing to hold her home blood pressure medications as patient n.p.o. Patient's blood pressure goes above 170 systolic, recommend PRN dosing of hydralazine considering low heart rates. Hold p.o. antihypertensivelisinopril 20 mg, metoprolol 37.5 twice daily (6) Hypothyroid: Continue IV levothyroxine (7) Afib: Currently controlled, will continue to hold amiodarone as patient cannot take p.o. at this time Currently supratherapeutic 5.3, possible shock liver from bradycardia/poor perfusion, will hold warfarin and follow INR. No signs of bleeding. (8) Hyperkalemia: Resolved, continue to follow BMP (9) Asthma: Albuterol nebulizer as needed (10) Skin sore: Right hip ulcer--Continue to worsen with Augmentin ppx, would recommend biopsy Wound consult, continue wound care (11) Anemia: in setting of acute renal failure that's resolved and from invasives procedues required in ICU Looks like recent baseline Hgb was 10 from review of recent labs Will work up with iron studies for cause Supervising Physician Co-Signing Physician Notes I personally examined the patient and verified all lechuga points of history and exam, discussed case, and agree with decision making with Dr aleman. Feeling better and breathing better. Notes that this all started with her sore tooth. When asking if she had much of a change in her diet after her tooth got bad, she noted she was eating significantly more soups. She is set to see a dentist at [facility] later this week. Tooth itself actually feels better right now. Vitals noted, in general she is awake and alert pleasant no distress. She has somewhat poor dentition but no obvious abscess or infection to my exam (which is obviously a very limited expertise), lungs show bibasilar more expiratory rhonchi/rales no wheezing good effort. She is sitting upright, as opposed to earlier in the day when examined by EMS to when she was laying flat. Acute hypoxic respiratory failureseems to have been predominantly if not entirely due to pulmonary edema from HFpEFprobably mediated by excess sodium from soup, which itself was mediated by a change in her diet from painful dentition. Improving nicely, continue to pull off some fluid with a little additional diuretics, follow closely. Acute renal failure/hyperkalemiamost likely mediated by poor forward flow from her CHF, although this is not 100% clear, there are no other clear etiologies at play right now. Question of pneumoniaseems to have improved rather dramatically, speech and swallowing eval fairly low risk, will finish out a short course of antibiotics for the question of pneumonia as well as for the fact that it seems to have improved her tooth pain. Poor dentition/tooth painimproved on antibiotics suggesting there may have been a degree of an infected tooth, she is set to see a dentist in a few days. Otherwise as above Juan Da Silva has no acute complaints today, other than hallway light is bright which makes it a little difficult to sleep. She notes she wonders if illness started with a bad left lower tooth. She notes having difficulty with getting seen by a dentist at [facility] and was supposed to have one see her on 10/22. She denies chest pain, nausea, vomiting, diarrhea, shortness of breath, fever, chills. Physical Exam Constitutional: + morbidly obese; no acute distress Eyes: PERRL, conjunctivae normal, anicteric sclerae ENMT: external ear and nose normal, oropharynx normal no significant dental abscess noted on visual inspection of left lower teeth Neck: bandage from removed right IJ in place, clean, intact Respiratory: + labored breathing Auscultation: + diminished lung sounds; no wheezes Cardiovascular: Rate/Rhythm: regular rate and regular rhythm Gastrointestinal (Abdomen): Percussion/Palpation: abdomen soft; abdomen nontender, no guarding and abdomen not rigid Musculoskeletal: Head/Neck/Chest: normocephalic and head atraumatic Skin: no rashes, warm and dry Neurologic: moves all extremities and awake; not confused Psychiatric: Orientation: alert and oriented x 3 Results & Data Vital Signs (Past 12 Hours) Vital Signs Temp Pulse Pulse Pulse Resp BP Pulse Ox 10/17/19 07:08 36.5 C 64 18 170/75 H 97 10/17/19 03:38 36.8 C 70 19 163/68 H 96 10/16/19 23:57 65 20 94 10/16/19 23:01 36.9 C 71 19 164/70 H 93 10/16/19 21:28 161/68 H 10/16/19 19:54 59 L 18 100 10/16/19 19:38 36.9 C 63 18 175/61 H 95 Resident Activity Tracking Resident Involvement: Resident Care Provided Care Provided: Adult Hospital Medicine (1) Acute kidney failure Acute renal failure type: unspecified Qualified Code(s): N17.9 - Acute kidney failure, unspecified
[2019-10-17 07:18] LABS: BUN Creatinine Ratio 18.9 (10-20); Calcium 8.5 mg/dl (8.5-10.1); Creatinine Clr Calc Pharmacy 81.8 ml/min; Est GFR (African American) 69.3; Est GFR (Non-African American) 59.8; Potassium 3.9 mmol/L (3.5-5.1)
[2019-10-17 07:53] LABS: Prothrombin Time 48.5 Seconds (9.0-12.0)
[2019-10-17 07:55] LABS: INR 5.3 (0.9-1.1)
[2019-10-17] MEDS: LEVOTHYROXINE SODIUM 56 MCG in SYRINGE 0 ML IV SCH (10:28)
--- NOTE | 2019-10-17 10:46 | XCELERA ---
[id number] \\[email or web address]\PDF_Reports\[id number]___[id number]
--- NOTE | 2019-10-17 10:46 | XCELERA ---
[id number] \\[email or web address]\PDF_Reports\[id number]___[id number]
--- NOTE | 2019-10-17 14:34 | Fluoroscopy Report ---
MODIFIED BARIUM SWALLOW CLINICAL HISTORY: r/o aspiration COMPARISON STUDY: None. FLUOROSCOPY TIME: 1.5 minutes. TECHNIQUE: A modified barium swallow was performed in conjunction with Speech Pathology. The patient ingested varying consistencies of barium containing material. Video fluoroscopy was performed. FINDINGS: Note was made of several episodes of tracheal aspiration with serial swallows of thin liqui ds. A cough was elicited. There was no aspiration with nectar thick liquids, pudding or crackers with paste. There is slight delayed initiation of the swallowing mechanism. Epiglottic inversion was norm al. Evaluation is mildly compromised given suboptimal visualization. IMPRESSION: 1. Several episodes of tracheal aspiration with serial swallows of thin liquids. No aspiration with t he remainder of the consistencies. 2. Full recommendations by speech pathology to follow. Electronically signed by: Philippe Rodas M.D. 10/17/2019 2:32 PM
[2019-10-17] MEDS: FAMOTIDINE 20 MG in SYRINGE 3 ML IV SCH (16:20)
[2019-10-17] MEDS ORDERED: ACETAMINOPHEN SOL 650 MG/20.3 ML UDC PO PRN (17:35)
--- NOTE | 2019-10-17 18:09 | Medical Student H&P ---
Date of Service October 17, 2019 Assessment & Plan (1) Acute kidney failure: was DIANNE Stage III in KDIGO staging now s/p hemodialysis and improving Creatinine resolved WNL Potassium is WNL Nephrology consulted Hold metformin/marta/NSAIDs Control HTN hydralazine PRN for systolic over 170. P.O's currently held Low salt diet encouraged- swallowing study showed okay for heart healthy diet, must use straw for thin liquids Monitor for acidosis, increase in Cr, hyperkalemia Acute renal failure type: unspecified Qualified Code(s): N17.9 - Acute kidney failure, unspecified (2) Respiratory failure: Respiratory failure requiring intubation in ICU LOC was reduced on admission likely due to anoxic/hypercarbic state. Clinically improved Continue O2 and BiPAP Pneumonia Vs CHF consolidation on chest Xray much improved in 4 days finish 5day course cefepime Likely cardiogenic origin of respiratory failure Volume control Echo showed mild LVH and increased systolic pressure Chronicity: acute Respiratory failure complication: hypoxia Qualified Code(s): J96.01 - Acute respiratory failure with hypoxia (3) Anemia: Normocytic anemia in postmenopausal female (Hbg 8.5) baseline seems to be ~Hbg 10 Consider Iron studies and B19/B9 (on chronic augmentin) Continue to treat DIANNE Monitor Hbg (4) Skin sore: Pt has reportedly had non healing ulcer for 17 years post surgery. No sign of infected on exam Wound care consulted and managing Proper padding and skin checks (5) Afib: On telemetry floor Continue amiodarone (6) Hypothyroid: Continue Levothyroxine (7) Asthma: Neb as needed Monitor 02 sat with goal above 93% in non-COPD History of Present Illness Primary Care Provider: Briseida Da Silva is a bedridden 64y/o female with a significant PMHx of A-fib, sleep apnea, CVA, Asthma, DM, and morbid obesity who presented to the ER (10/13/19) primarily for difficulty breathing and "dropping things". She was found to have a decr eased LOC, respiratory failure, DIANNE, and hyperkalemia requiring and ICU admission for intubation as well as urgent hemodialysis. She has since been transferred back to the medical floor from the ICU after being extubated on 10/15/19. Today she is oriented to person, time, and place, but says many of the details of her stay are fuzzy as she was so sick. She says she is feeling much better and her breathing has improved dramatically. Before her ER admission the patient endorses worsening asthma requiring frequent use of her PRN inhaler. Additionally, she states that due to a toothache she has been eating mostly soups for a little over a month to avoid pain associated with solid foods. She does not recall whether she has gained weight or had increasing edema during this period of increased sodium intake. Allergies Allergy/AdvReac Type Severity Reaction Status Date / Time Iodinated Contrast Media Allergy Intermediate HIVES Verified 10/13/19 05:53 latex Allergy Unknown LOW LEVEL Verified 10/13/19 05:53 LATEX ALLERGY Quinolones Allergy Unknown DR HICKS Verified 10/13/19 05:53 ASKED THAT ALLERGY BE ADDED 07/31/08 Sulfa (Sulfonamide Allergy Unknown HIVES Verified 10/13/19 05:53 Antibiotics) vancomycin Allergy Unknown HIVES, GI Verified 10/13/19 05:53 UPSET Home Medications Home Medications Medication Instructions Recorded Confirmed Type amiodarone 200 mg PO Q12 08/02/18 10/13/19 History aspirin 81 mg PO HS 08/02/18 10/13/19 History atorvastatin 40 mg PO QPM 08/02/18 10/13/19 History calcium carbonate 1,075 mg PO Q8 PRN 08/02/18 10/13/19 History fluticasone propion-salmeterol 1 puff INHALATION BID 08/02/18 10/13/19 History [Advair Diskus] fluticasone propionate 2 spray INTRANASAL HS 08/02/18 10/13/19 History gabapentin 600 mg PO TID 08/02/18 10/13/19 History lisinopril 20 mg PO Q12 08/02/18 10/13/19 History magnesium oxide 400 mg PO QAM 08/02/18 10/13/19 History metformin 1,000 mg PO BIDM 08/02/18 10/13/19 History multivitamin with minerals 1 tab PO QAM 08/02/18 10/13/19 History [Multiple Vitamin-Minerals] sitagliptin [Januvia] 100 mg PO QAM 08/02/18 10/13/19 History Lactobacillus acidoph-L.bulgar 1 tab PO DAILY 10/13/19 10/13/19 History [Lactinex] acetaminophen [Tylenol] 325 mg PO Q6 PRN MDD 3gm/24hr 10/13/19 10/13/19 History acetaminophen [Tylenol] 325 mg PO Q6H PRN MDD 3gm/24hr 10/13/19 10/13/19 History albuterol sulfate [Ventolin HFA] 2 puff INHALATION Q4 PRN 10/13/19 10/13/19 History amoxicillin-pot clavulanate 1 tab PO BID 10/13/19 10/13/19 History carbamide peroxide [Debrox] 2 drp OTB UD 10/13/19 10/13/19 History insulin lispro [Humalog U-100 1 sliding scale dose SUBCUT 10/13/19 10/13/19 History Insulin] USEASDIRECTD PRN ipratropium-albuterol 3 ml INHALATION . EVERY 2 HOURS PRN 10/13/19 10/13/19 History ipratropium-albuterol 3 ml INHALATION QID 10/13/19 10/13/19 History levothyroxine 112 mcg PO QPM 10/13/19 10/13/19 History metoprolol tartrate 37.5 mg PO BID 10/13/19 10/13/19 History montelukast 10 mg PO QAM 10/13/19 10/13/19 History oxycodone 5 mg PO TID 10/13/19 10/13/19 History sennosides-docusate sodium 1 tab-cap PO BID 10/13/19 10/13/19 History [Senokot-S] warfarin 3 mg PO HS 10/13/19 10/13/19 History Past Med/Surg History Medical History A-fib Asthma (Chronic) CVA (cerebral vascular accident) (Acute) DM type 2 (diabetes mellitus, type 2) (Chronic) History of left shoulder replacement (Acute) Hypertension (Chronic) Left cervical radiculopathy (Acute) Morbid obesity with body mass index of 50 or higher (Chronic) Osteoarthritis (Chronic) Sleep apnea (Chronic) "on cpap" Stroke-like symptoms Surgical History Status post bilateral total hip replacement (Chronic) Family History Other Family history non-contributory Social History Preferred Language: [place] Communication Ability: Unable Program Project Analyst Required: No Beliefs That Will Affect Care: None marital status: Single Current Living Situation: [facility] Feels Safe at Home: Yes Smoking Status: Never smoker Second Hand Exposure: No ; Hx Alcohol Use: No Hx Substance Use: No Review of Systems + sweats; no fever, no chills and no weakness Feels hot/sweaty due to plastic bed contacting skin. + dental pain and + dental caries + cough, + chest congestion and + sputum production Clear to yellow sputum reported no chest pain, no radiating jaw, neck or arm pain, no palpitations and no lightheadedness + nausea and + constipation; no abdominal pain and no heartburn + non-healing lesions and + skin ulcer no localized weakness, no paralysis and no numbness Physical Exam Constitutional: + morbidly obese Pt is laying in bed ENMT: Mouth: + dental restorations No obvious abscess on back left molars of concern. Neck: Submandibular and cervical lymph nodes tender to palpation Respiratory: no labored breathing Diffuse expiratory wheezes when lying down, Rhonchi bilaterally in lower lobes when seated in bariatric wheelchair. Pt is on nasal canula as well as BiPAP mask during exam. Cardiovascular: RRR, no murmur, no edema JVD could not be assessed due to body habitus Gastrointestinal (Abdomen): Inspection/Auscultation: normal bowel sounds Percussion/Palpation: no ascites RUQ tender to deep palpation, but no rebound tenderness Skin: normal turgor Moderate bruising near site of previously removed central line placement, Rt hip ulcer in crease, bilateral hallux valgus' Results & Data Vital Signs (Past 12 Hours) Vital Signs Temp Pulse Pulse Resp BP Pulse Ox 10/17/19 16:10 37.0 C 79 18 160/79 H 98 10/17/19 11:12 36.9 C 70 15 169/81 H 99 10/17/19 07:08 36.5 C 64 18 170/75 H 97 Code Status & VTE Plan VTE Prophylaxis Plan VTE Prophylaxis will be ordered: Yes Supervising Attestation I personally examined the patient and verified all lechuga points of history and exam, discussed case, and agree with decision making with Mari CORNEJO
--- NOTE | 2019-10-17 18:28 | Billing Data ---
Coding Level of Care Code 41379 Subseq Hosp Care Lvl 3
[2019-10-17] MEDS: FUROSEMIDE 40 MG in SYRINGE 0 ML IV SCH (18:54)
[2019-10-17] MEDS: FLUTICASONE/SALMETEROL 250/50 (ADVAIR) 14 PUFF/1 INHALER INH SCH (20:38)
[2019-10-17] MEDS: FLUTICASONE PROPIONATE NA SPR 16 GM BTL SCH (20:38)
[2019-10-17] MEDS: METOPROLOL TARTRATE 25 MG TAB PO SCH (20:39)
[2019-10-17] MEDS: DOCUSATE SODIUM/SENNA 50/8.6MG TAB PO SCH (20:40)
[2019-10-17] MEDS ORDERED: Nursing to Pharmacy Communication ONE (21:40)
[2019-10-18] MEDS: CEFEPIME 2,000 MG in SYRINGE 7.5 ML IV SCH ×2 (06:01→12:47)
[2019-10-18] MEDS: LEVOTHYROXINE SODIUM 112 MCG TABLET PO SCH (06:01)
[2019-10-18 06:25] LABS: INR 2.4 (0.9-1.1)
[2019-10-18 06:34] LABS: BUN Creatinine Ratio 16.2 (10-20); Calcium 8.3 mg/dl (8.5-10.1); Creatinine Clr Calc Pharmacy 85.3 ml/min; Est GFR (African American) 72.8; Est GFR (Non-African American) 62.9; Potassium 3.6 mmol/L (3.5-5.1)
[2019-10-18 06:42] LABS: Ferritin 69.5 ng/ml (8-388)
--- NOTE | 2019-10-18 07:12 | Hospitalist Progress Note ---
Date of Service October 18, 2019 Assessment & Plan (1) Acute and chronic respiratory failure with hypoxia: Concern for chronic aspiration considering edematous vocal cords on intubation Continues to do well today following extubation Continue broad coverage for pneumonia, bronch/blood cultures pending ngtd, MRSA screen negative, continue cefepime Hold all p.o. medications, keep n.p.o., speech consulted (2) Acute kidney failure: Nephrology following, appreciate recommendations Required emergency dialysis, potassium was 7improved today to 3.9 WNL Dialysis catheter removed, kidney injury resolved; Creatinine WNL 0.99 (3) Morbid obesity: Likely an element of obesity hypoventilation syndrome (4) DM type 2 (diabetes mellitus, type 2): Continue insulin, hold oral medications including metformin, sitagliptin Blood sugars were 118 this morning, okay to continue with dextrose NSS fluids at 80 cc/h since she had previous low glucose readings and NPO for swallow, okay for diabetic and heart healthy diet after okay from swallowing study (5) Hypertension: Patient's pressures are stable; her systolic values are elevated, we are continuing to hold her home blood pressure medications as patient n.p.o. Patient's blood pressure goes above 170 systolic, recommend PRN dosing of hydralazine considering low heart rates. Hold p.o. antihypertensivelisinopril 20 mg, metoprolol 37.5 twice daily (6) Hypothyroid: Continue IV levothyroxine (7) Afib: Currently controlled, will continue to hold amiodarone as patient cannot take p.o. at this time Currently supratherapeutic 5.3, possible shock liver from bradycardia/poor perfusion, will hold warfarin and follow INR. No signs of bleeding. (8) Hyperkalemia: Resolved, continue to follow BMP (9) Asthma: Albuterol nebulizer as needed (10) Skin sore: Right hip ulcer--Continue to worsen with Augmentin ppx, would recommend biopsy Wound consult, continue wound care (11) Anemia: in setting of acute renal failure that's resolved and from invasives procedues required in ICU Looks like recent baseline Hgb was 10 from review of recent labs Will work up with iron studies for cause Physical Exam Constitutional: + morbidly obese; no acute distress Eyes: PERRL, conjunctivae normal, anicteric sclerae ENMT: external ear and nose normal, oropharynx normal Respiratory: Auscultation: + diminished lung sounds; no wheezes Cardiovascular: Rate/Rhythm: regular rate and regular rhythm Gastrointestinal (Abdomen): Percussion/Palpation: abdomen soft; abdomen nontender, no guarding and abdomen not rigid Musculoskeletal: Head/Neck/Chest: normocephalic and head atraumatic Skin: no rashes, warm and dry Neurologic: moves all extremities and awake; not confused Psychiatric: Orientation: alert and oriented x 3 Results & Data Vital Signs (Past 12 Hours) Vital Signs Temp Pulse Pulse Pulse Pulse Resp BP 10/18/19 06:59 36.8 C 60 18 154/70 H 10/18/19 03:55 37.0 C 61 19 162/64 H 10/18/19 00:00 58 L 10/17/19 22:45 37 C 57 L 0 L 20 157/71 H 10/17/19 20:45 69 10/17/19 19:13 36.9 C 69 20 152/98 H Pulse Ox 10/18/19 06:59 99 10/18/19 03:55 96 10/18/19 00:00 10/17/19 22:45 97 10/17/19 20:45 10/17/19 19:13 96 (1) Acute kidney failure Acute renal failure type: unspecified Qualified Code(s): N17.9 - Acute kidney failure, unspecified
[2019-10-18] MEDS: DOCUSATE SODIUM/SENNA 50/8.6MG TAB PO SCH ×2 (07:19→21:23)
[2019-10-18] MEDS: METOPROLOL TARTRATE 25 MG TAB PO SCH ×2 (07:52→21:23)
[2019-10-18] MEDS: FLUTICASONE/SALMETEROL 250/50 (ADVAIR) 14 PUFF/1 INHALER INH SCH ×2 (07:53→21:23)
[2019-10-18] MEDS: ATORVASTATIN 40 MG TAB PO SCH (07:53)
[2019-10-18] MEDS: INSULIN ASPART 100 UNITS/ML 3 ML PEN SC SCH ×4 (07:56→21:21)
--- NOTE | 2019-10-18 11:03 | Discharge Summary ---
Date of Service October 19, 2019 Admission HPI Per Admitting Provider Rekha is a bedridden 64y/o female with a significant PMHx of A-fib, sleep apnea, CVA, Asthma, DM, and morbid obesity who presented to the ER (10/13/19) primarily for difficulty breathing and "dropping things". She was found to have a decreased LOC, respiratory failure, DIANNE, and hyperkalemia requiring and ICU admission for intubation as well as urgent hemodialysis. She has since been transferred back to the medical floor from the ICU after being extubated on 10/15/19. Today she is oriented to person, time, and place, but says many of the details of her stay are fuzzy as she was so sick. She says she is feeling much better and her breathing has improved dramatically. Before her ER admission the patient endorses worsening asthma requiring frequent use of her PRN inhaler. Additionally, she states that due to a toothache she has been eating mostly soups for a little over a month to avoid pain associated with solid foods. She does not recall whether she has gained weight or had increasing edema during thi s period of increased sodium intake. Principal Diagnosis Acute Renal Failure; Hyperkalemia Discharge Exam Constitutional + morbidly obese, cooperative and comfortable; no acute distress and not ill appearing Eyes EOM intact bilaterally ENMT external ear and nose normal, oropharynx normal Neck trachea midline Respiratory normal respiratory effort, lungs clear to auscultation Cardiovascular Rate/Rhythm: regular rate and regular rhythm Gastrointestinal (Abdomen) Percussion/Palpation: + abdomen tender (mild RUQ to deep palpation) and abdomen soft; no guarding and abdomen not rigid mild RUQ tenderness to deep palpation; negative murdock Musculoskeletal Head/Neck/Chest: normocephalic and head atraumatic Skin no rashes, warm and dry Neurologic moves all extremities and awake Psychiatric A+Ox3, euthymic affect Discharge Data Allergies Allergy/AdvReac Type Severity Reaction Status Date / Time Iodinated Contrast Media Allergy Intermediate HIVES Verified 10/13/19 05:53 latex Allergy Unknown LOW LEVEL Verified 10/13/19 05:53 LATEX ALLERGY Quinolones Allergy Unknown DR HICKS Verified 10/13/19 05:53 ASKED THAT ALLERGY BE ADDED 07/31/08 Sulfa (Sulfonamide Allergy Unknown HIVES Verified 10/13/19 05:53 Antibiotics) vancomycin Allergy Unknown HIVES, GI Verified 10/13/19 05:53 UPSET Consultations 10/13/19 05:58 ED Decision to Admit Stat 10/13/19 10:03 Consult Nephrology Routine 10/13/19 10:33 Consult Talent Acquisition Sourcer Routine 10/13/19 18:09 Consult Case Management - Discharge Planning Routine Ordered Studies 10/13/19 12:12 US point of care ultrasound Urgent 10/17/19 13:45 FL video swallow Routine Hospital Course (1) Acute kidney failure: Required emergency dialysis, potassium was 7improved today to 3.9 WNL Dialysis catheter removed, remarkably kidney injury resolved; Creatinine WNL 0.99 -Unsure of provoking etiology. (2) Acute and chronic respiratory failure with hypoxia: When Rekha was admitted for Acute Renal Failure and Hyperkalemia, she had increasing oxygen requirements. She was being feed on the floor and appeared to have aspiration from unable to protect her airway as later in ICU, her morning eggs were seen on bronchoscopy. She required intubation as was having poor ventilation and decreased mentation while she was being treated for Acute Renal Failure. She was extubated without complication and remained on BiPAP at night and intermittently on RA or 2L NC throughout the stay. There was concern for chronic aspiration considering edematous vocal cords on intubation. She had modified barium swallow which showed: Several episodes of tracheal aspiration with serial swallows of thin liquids. A cough was elicited. There was no aspiration with nectar thick liquids, pudding or crackers with paste. There is slight delayed initiation of the swallowing mechanism. Epiglottic inversion was normal. Evaluation is mildly compromised given suboptimal visualization. PLUMBER APPRENTICE recommendations were: Aspiration Precautions (Fully Alert and Upright, Single Bites/Small Sips/Slow Rate, NO Straws). Most Important to take drinks of liquids one at a time. (3) RUQ abdominal pain: Patient was set for discharge back to SNF on 10/18. She was requesting to stay as was happy with the meals here as veggies at [place] were "unedible. " During team rounds, she then noted she needed to stay for her RUQ "gallbladder pain." She had been tolerating meals without difficulty w/o post prandial pain. We were more than happy to work this up for Rekha. A RUQ Ultrasound was performed showin. Cholelithiasis. There is no wall thickening and no pericholecystic fluid. 2. Mild common bile duct dilatation (10 mm). No evidence of intrahepatic biliary ductal dilatation 3. No pancreatic or hepatic masses identified Surgery consultation was performed as well. She had no signs of acute cholecystitis by ultrasound. Their recs were: she should be advised to adhere to low fatty/greasy diet and further evaluation as an outpatient once she recovers from this acute hospitalization. Given her morbid obesity and comorbidities she may be better suited at a tertiary center if any surgical intervention required. (4) Tooth ache: She notes [place] toothache that she was having trouble getting into a dentist as body habitus limited her access through entry way into exam room at local office. She noted having an appointment on 10/20 at [facility] [place]. I did advise patient that she was requiring to stay for gallbladder workup on 10/18 to call [facility] to make sure appointment wouldn't be changed. She noted unable to get through via phone. There were no obvious signs of infection or abscess here on physical exam. (5) Morbid obesity: Likely an element of obesity hypoventilation syndrome (6) DM type 2 (diabetes mellitus, type 2): Continue home meds now that renal function has returned to normal - restarting home EFRAÍN rec BMP within week -A1C performed here on 10/14/19 was 5.5. (7) Hypertension: Hemodynamically stable, okay to resume home meds (8) Hypothyroid: Continue home PO levothyroxine (9) Afib: Was supratherapeutic 5.3, unknown cause, no rise in LFTs. No signs of bleeding. Pharmacist rec restarting at 2mg from INR value of 2.4 on 10/18, and to check INR in one week. Day of discharge INR was 1.6. (10) Hyperkalemia: Resolved, continue to follow BMP (11) Asthma: Albuterol nebulizer as needed (12) Skin sore: Right hip ulcer Wound care was consuledt, considered wound to be more fungal than acute bacterial, discontinued abx Wound Care D/C instructions Care for right hip wound: Cleanse with saline, Aquacel AG in cervice, cover sponge, change every 2 days and as needed. Apply a ntifungal ointment to surrounding area of redness daily. (13) Anemia: in setting of acute renal failure that's resolved and from invasives procedues required in ICU Looks like recent baseline Hgb was 10 from review of recent labs Irone studies unremarkable (Iron=43; FAOH=349; Mplbcnszxlf=596; Ferritin=69.5) (14) Pulmonary edema: - She was fluid overloading in setting of Acute Renal Failure on admission. She was treated with a course of Cefepime x5 days for Infiltrate medial right base seen on admission CXR. However, repeat CXR were more consistent with Pulmonary Congestion. She had an unremarkable echocardiogram. - improved in setting of IV lasix 40mg - recommend next several days of PO lasix to help with component of pulmonary congestion, then reassess for further use - She noted a history of tooth ache and eating more soups lately, maybe she had more sodium intake. Total Time Total Time Spent Total Time Spent (In Minutes): >30 Discharge Plan Discharge Items Patient Disposition: Transfer [facility] Fac Reason For Visit: HYPERKALEMIA, DIANNE Discharge Diagnosis: Acute Renal Failure, Hyperkalemia Activity: Resume your previous activity Non-emergency contact: Primary Care Provider Call non-emergency contact if: you have any medication questions Follow-up/Referrals: Briseida Killian [Primary Care Provider] - Diet: Carb Consistent or DM2 and Heart Healthy Addtl Attending Provider Instructions: Congestive Heart Failure: Discharge Instructions Congestive Heart Failure essentially means your heart is able to have a "traffic jam" of fluid that backs up into your lungs. Fluid in lungs then blocks up breathing space making you feel short of breath. In the hospital, our job is to get the fluid off so that you are able to breathe better, and then get you back on track with medication and lifestyle adjustments to keep the traffic jam from happening again. Salt (Sodium) The vast majority of people admitted to the hospital with fluid back up into the lungs get there because of too much salt in their diet. The way our kidneys work: when you take a small amount of sodium, your kidneys hold onto a small amount of water. When you take a large amount of sodium, your kidneys hold onto a large amount of water. When this happens, your blood vessels get flooded, your heart gets overfilled, and the fluid backs up into your lungs. Most people know to avoid the salt shaker, but sodium is in almost anything prepackaged/prepared, as a preservative or as a flavoring agent. Most of the people we take care of who are here with congestive heart failure caused by too much sodium do not use a salt shaker at all. Get into the habit of looking at food labels, so you can see how much sodium is in the foods you eat. The most important number to look at is how much sodium is in each serving. But also notice the size of a serving. [place] will frequently make a serving size so tiny that it does not look like there is much sodium per serving, but a normal person might eat 3 or 4 servings of the food and take in a lot more sodium than they realized. Keep a "budget" of how much sodium you take in in each day. Most people stay out of trouble and stay out of the hospital as long as they stay "under budget". The majority of congestive heart failure patients do well if they take less than 2000 mg of sodium a day. Because our kidneys retain water based on how much sodium they are seeing in any given moment, it is also important to stay at less than about 500 mg in any given meal. This is because even if you stayed at less than 2000 mg of sodium, but ate it all at once, your kidneys would retain fluid at a rate as though you are taking in much more sodium than you actually are. Occasionally your doctor may specifically recommend restricting even further (such as less than 1500mg per day) so if you have been told to be even stricter with sodium, please follow that advice. -Following How You Are Doing (Wet Versus Dry) Because managing congestive heart failure is an ongoing process, it is very important to learn how to follow your signs and symptoms and track how you are doing at home. This will allow you to catch problems before they become a big deal. In general, as your health care team, we look at managing congestive heart failure chronically as a balance of being "wet" (flooded with fluid) versus being "dry" (dehydrated from treatment). Wet - signs of fluid retention that would warrant further evaluation: Check your weight daily. If your weight goes up by more than 2 pounds in 1 day, it is almost certainly fluid related. This should warrant further thought, and/or a call to your doctor Follow your breathingmost of the time, early on when fluid backs up into your lungs, you will first start to notice shortness of breath when walking, or when lying flat. If you notice either of these, this should warrant further thought, and/or a call to your doctor If you notice both an increase in weight and worsening breathing, that de finitely warrants getting seen as soon as possible "Dry"while the goal of managing the disease is to keep you from getting "wet, the medications can sometimes cause a degree of dehydration. Most people with congestive heart failure need frequent lab work (basic metabolic panel). Generally when there has been a change in diuretic dosing (a change in the water pill) or any other major changes, lab work should be followed closely and more frequently afterwards. This is because lab work will frequently show early signs of dehydration before you start to feel bad. Frequent symptoms of being dehydrated include: feeling weak and lightheaded, having lower blood pressures, making less urine than usual, or having a very dry mouth. If you notice any of these signs/symptoms, and you are not due for lab work, it would be quite reasonable to call your doctor to see if lab work or a visit could be arranged. Heart Failure Management Checklist: Limit Salt (Sodium) Intake to 2000mg (2g) per day and 500mg (0.5g) per meal Check weight daily (in same clothes, without shoes) every morning Use the provided chart to enter your weight and salt intake for the day Are you too wet? If you gained 2lb or more - make sure to take your water pill If your breathing is not good (you are more short of breath than usual) call your doctor regardless of weight change If you gained 2lb or more and you are short of breath, see your doctor or come to the emergency room Are you too dry? If you feel weak or lightheaded, have lower blood pressures, make less urine than usual, or have a very dry mouth. Call your doctor Pending Studies at Discharge: No Stand-Alone Forms: My [facility] Skilled Items Patient informed of condition?: Yes DNR: No Discharge Level of Care: Skilled Communicable Disease: No Discharge Prognosis: Stable Lines: None Urinary Catheter: No Medications and DC Order Prescriptions: New warfarin [Coumadin] 2 mg Tablet 2 mg PO DAILY@1600 30 Days Qty: 30 RF: 0 furosemide [Lasix] 40 mg tablet 40 mg PO DAILY Qty: 4 RF: 0 Continued fluticasone propion-salmeterol 250-50 mcg/dose blister with device 1 puff Inhalation BID RF: 0 gabapentin 600 mg tablet 600 mg PO TID RF: 0 amiodarone 200 mg tablet 200 mg PO Q12 RF: 0 metformin 1,000 mg tablet 1,000 mg PO BIDM RF: 0 fluticasone propionate 50 mcg/actuation spray,suspension 2 spray Intranasal HS RF: 0 lisinopril 20 mg tablet 20 mg PO Q12 RF: 0 sitagliptin 100 mg tablet 100 mg PO QAM RF: 0 atorvastatin 40 mg tablet 40 mg PO QPM RF: 0 aspirin 81 mg Tablet,Delayed Release (Dr/Ec) 81 mg PO HS RF: 0 magnesium oxide 400 mg (241.3 mg magnesium) Tablet 400 mg PO QAM RF: 0 multivitamin with minerals [Multiple Vitamin-Minerals] Tablet 1 tab PO QAM RF: 0 calcium carbonate 320 mg calcium (750 mg) Tablet,Chewable 1,075 mg PO Q8 PRN (Reason: Dyspepsia) RF: 0 levothyroxine 112 mcg tablet 112 mcg PO QPM RF: 0 Lactinex 1 million cell Tablet,Chewable 1 tab PO DAILY RF: 0 montelukast 10 mg Tablet 10 mg PO QAM RF: 0 metoprolol tartrate 25 mg Tablet 37.5 mg PO BID RF: 0 oxycodone 5 mg tablet 5 mg PO TID RF: 0 acetaminophen [Tylenol] 325 mg Tablet 325 mg PO Q6 MDD 3gm/24hr PRN (Reason: Pain) RF: 0 acetaminophen [Tylenol] 325 mg Tablet 325 mg PO Q6H MDD 3gm/24hr PRN (Reason: temp>100) RF: 0 sennosides-docusate sodium [Senokot-S] 8.6-50 mg Tablet 1 tab-cap PO BID RF: 0 albuterol sulfate [Ventolin HFA] 90 mcg/actuation HFA aerosol inhaler 2 puff INHALATION Q4 PRN (Reason: Shortness Of Breath Or Wheezing) RF: 0 ipratropium-albuterol 0.5 mg-3 mg(2.5 mg base)/3 mL Solution For Nebulization 3 ml INHALATION QID RF: 0 ipratropium-albuterol 0.5 mg-3 mg(2.5 mg base)/3 mL Solution For Nebulization 3 ml INHALATION . EVERY 2 HOURS PRN (Reason: Shortness Of Breath Or Wheezing) RF: 0 insulin lispro [Humalog U-100 Insulin] 100 unit/mL Solution 1 sliding scale dose SUBCUT USEASDIRECTD PRN (Reason: elevated bs) RF: 0 carbamide peroxide [Debrox] 6.5 % Drops 2 drp OTB UD RF: 0 Discontinued warfarin 3 mg tablet 3 mg PO HS RF: 0 amoxicillin-pot clavulanate 875-125 mg tablet 1 tab PO BID RF: 0 Discharge Orders: Discharge Order (Routine); Ordered 10/19/19 Ordered By: James Evans Admission Data Admit Date/Time: 10/13/19 06:38 Attending Provider: Chase Paris Admit Provider: Ke Barnett Primary Care Provider: Briseida Killian Other Providers: Briseida Killian ; Yves Gallego ; Ke Barnett ; Troy Pineda ; Kei Steward ; Toney Alanis Other Interventions: Discharge Summary Assessment (RN) Last Done: 10/19/19 14:00 DC Date/Time DO NOT enter until pt leaves facility: 10/19/19 14:55 Supervising Physician Co-Signing Physician Notes I personally examined the patient and verified all lechuga points of history and exam, discussed case, and agree with decision making with Dr evans. Feeling much better, breathing better, eating fine. No current abdominal pain. Case discussed with surgery. Patient very receptive today and asking a lot of questions about weight loss and weight gain, we discussed the "physics of weight loss" in depth and discussed that generally speaking restricting calories below your basal energy expenditure will have you "spend more than you are in" and affect a slow weight loss over time. She asked a lot of good questions, presents a few barriers, but overall gets the idea well. Vitals noted, in general she is awake and alert pleasant no distress. Breathing unlabored no accessory muscle use good effort. Skin shows no rashes no pallor or icterus. No focal neuro deficits. Acute hypoxic respiratory failureseems to have been predominantly if not entirely due to pulmonary edema from HFpEFprobably mediated by excess sodium from soup, which itself was mediated by a change in her diet from painful dentition. Improving nicely, slowly wean oxygen, and follow with diuretics as an outpatient, hopefully diuretics will not need to be a permanent fixture, follow basic metabolic panel periodically. Acute renal failure/hyperkalemiamost likely mediated by poor forward flow from her CHF, although this is not 100% clear, there are no other clear etiologies at play right now. Question of pneumoniaseems to have improved rather dramatically, speech and swallowing eval fairly low risk, finished a short course of antibiotics Poor dentition/tooth painimproved on antibiotics suggesting there may have been a degree of an infected tooth, she is set to see a dentist in a few days at [facility] Morbid obesity with BMI greater than 60her weight does appear to be a root cause of a lot of her health problems. That said she is still relatively young and surprisingly without a significant burden of irreversible accumulated diagnoses. We had an extensive discussion on weight loss and weight gain, her basal energy expenditure is about 2100 eric a day, we discussed that trying to undercut to calories and increase activity as best as possible, combined with patient's, would affect a slow but steady weight loss. Her TSHs are mildly erratic, but nothing in the range that should meaningfully affect her basal metabolic rate. It appears that her main difficulties with weight loss are her lack of mobility, and the fact that she eats desserts at most meals. We discussed avoiding calorie dense foods and keeping a budget on things. She seemed to be interested in at least trying. We also discussed that because the scale measures weight, and her actual "dry weight" is really more a measure of mass, that fluid shifting may make the scale change differently than she expects. Abdominal painnonspecific. Right upper quadrant ultrasound with stones but no cholecystitis, mild nonspecific common bile duct dilation, surgical consult felt that gallbladder issues could be at play, but that given that she is able to eat okay and has no overt cholecystitis but certainly no intervention would be warranted right now. I discussed with the patient given her nonspecific findings also possible that her abdominal pain could be gas related or other such etiologies. Otherwise as above Resident Activity Tracking Resident Involvement: Resident Care Provided Care Provided: Adult Hospital Medicine
[2019-10-18] MEDS: FAMOTIDINE 20 MG in SYRINGE 3 ML IV SCH (12:47)
--- NOTE | 2019-10-18 13:54 | Surgery Consultation ---
Date of Consultation October 18, 2019 Assessment & Plan (1) RUQ abdominal pain: Questionable gallbladder etiology for past 1 month prior to admission? Per patient history of ultrasound with gallbladder sludge. Denies post prandial abdominal pain, nausea or vomiting. No leukocytosis. T. bili and lfts wnl on 10/16/19. Unlikely acute cholecystitis. Awaiting ultrasound results (scheduled for 4:30 this afternoon) Plan: Will await ultrasound results Continue NPO for now If patient has no signs of acute cholecystitis by ultrasound, she should be advised to adhere to low fatty/greasy diet and further evaluation as an outpatient once she recovers from this acute hospitalization. Given her morbid obesity and comorbidities she may be better suited at a tertiary center if any surgical intervention required. If there are signs of acute cholecystitis/obstruction on ultrasound than may need to consider tertiary center for percutaneous cholecystostomy tube. Continue current medical management (2) Acute and chronic respiratory failure with hypoxia: Resolved, s/p ICU intubation now requiring supplemental O2 (3) Acute kidney failure: Resolved s/p urgent hemodialysis creatinine and electrolytes wnl (4) Morbid obesity: Dr. Alanis has seen patient, agrees with above. History of Present Illness Reason for Consultation: RUQ pain, gallbladder eval Requesting Physician: James Evans Attending Physician: Chase Paris DO History of Present Illness Rekha is a 64 year-old female with a significant PMHx of A-fib, sleep apnea, C VA, Asthma, DM, and morbid obesity who presented to the ER (10/13/19) primarily for difficulty breathing. She was found to have a decreased LOC, respiratory failure, DIANNE, and hyperkalemia requiring an ICU admission for intubation as well as urgent hemodialysis. She underwent hemodialysis for two days. She was transferred out of the ICU after extubation and has had dialysis catheter removed. Her electrolytes and creatinine have normalized. Our services consulted for RUQ pain. Per nursing staff she was complaining of epigastric/RUQ pain last evening. Per nursing staff she was not having abdominal pain throughout her hospital stay. Rekha states that she has had this pain prior to her hospital admission. Mostly in the right upper abdomen. States it started as a burning sensation. States she has an ultrasound and [facility] which showed she had gallbladder sludge and states she was scheduled for another imaging study here at [facility]. She denies of any post prandial abdominal pain, nausea, vomiting, diarrhea. States she has noticed constipation in the past few weeks which is unusual for her. No prior history of gallbladder problems. Baseline she is wheelchair bound, after fibula fracture in 2018. Allergies Allergy/AdvReac Type Severity Reaction Status Date / Time Iodinated Contrast Media Allergy Intermediate HIVES Verified 10/13/19 05:53 latex Allergy Unknown LOW LEVEL Verified 10/13/19 05:53 LATEX ALLERGY Quinolones Allergy Unknown DR HICKS Verified 10/13/19 05:53 ASKED THAT ALLERGY BE ADDED 07/31/08 Sulfa (Sulfonamide Allergy Unknown HIVES Verified 10/13/19 05:53 Antibiotics) vancomycin Allergy Unknown HIVES, GI Verified 10/13/19 05:53 UPSET Home Medications Home Medications Medication Instructions Recorded Confirmed Type amiodarone 200 mg PO Q12 08/02/18 10/13/19 History aspirin 81 mg PO HS 08/02/18 10/13/19 History atorvastatin 40 mg PO QPM 08/02/18 10/13/19 History calcium carbonate 1,075 mg PO Q8 PRN 08/02/18 10/13/19 History fluticasone propion-salmeterol 1 puff INHALATION BID 08/02/18 10/13/19 History fluticasone propionate 2 spray INTRANASAL HS 08/02/18 10/13/19 History gabapentin 600 mg PO TID 08/02/18 10/13/19 History lisinopril 20 mg PO Q12 08/02/18 10/13/19 History magnesium oxide 400 mg PO QAM 08/02/18 10/13/19 History metformin 1,000 mg PO BIDM 08/02/18 10/13/19 History multivitamin with minerals 1 tab PO QAM 08/02/18 10/13/19 History [Multiple Vitamin-Minerals] sitagliptin 100 mg PO QAM 08/02/18 10/13/19 History Lactinex 1 tab PO DAILY 10/13/19 10/13/19 History acetaminophen [Tylenol] 325 mg PO Q6 PRN MDD 3gm/24hr 10/13/19 10/13/19 History acetaminophen [Tylenol] 325 mg PO Q6H PRN MDD 3gm/24hr 10/13/19 10/13/19 History albuterol sulfate [Ventolin HFA] 2 puff INHALATION Q4 PRN 10/13/19 10/13/19 Hist ory carbamide peroxide [Debrox] 2 drp OTB UD 10/13/19 10/13/19 History insulin lispro [Humalog U-100 1 sliding scale dose SUBCUT 10/13/19 10/13/19 History Insulin] USEASDIRECTD PRN ipratropium-albuterol 3 ml INHALATION . EVERY 2 HOURS PRN 10/13/19 10/13/19 History ipratropium-albuterol 3 ml INHALATION QID 10/13/19 10/13/19 History levothyroxine 112 mcg PO QPM 10/13/19 10/13/19 History metoprolol tartrate 37.5 mg PO BID 10/13/19 10/13/19 History montelukast 10 mg PO QAM 10/13/19 10/13/19 History oxycodone 5 mg PO TID 10/13/19 10/13/19 History sennosides-docusate sodium 1 tab-cap PO BID 10/13/19 10/13/19 History [Senokot-S] furosemide [Lasix] 40 mg PO DAILY #4 tab 10/18/19 Rx warfarin [Coumadin] 2 mg PO DAILY@1600 30 Days #30 tab 10/18/19 Rx Patient History Medical History A-fib Asthma (Chronic) CVA (cerebral vascular accident) (Acute) DM type 2 (diabetes mellitus, type 2) (Chronic) History of left shoulder replacement (Acute) Hypertension (Chronic) Left cervical radiculopathy (Acute) Morbid obesity with body mass index of 50 or higher (Chronic) Osteoarthritis (Chronic) Sleep apnea (Chronic) "on cpap" Stroke-like symptoms Surgical History Status post bilateral total hip replacement (Chronic) Family History Other Family history non-contributory Social History Preferred Language: Bengali Communication Ability: Unable Alining Inspector Required: No Beliefs That Will Affect Care: None marital status: Single Current Living Situation: Senior Care Feels Safe at Home: Yes Smoking Status: Never smoker Second Hand Exposure: No ; Hx Alcohol Use: No Hx Substance Use: No Review of Systems Review of Systems: All systems reviewed & are unremarkable except as noted in HPI & below Physical Exam Constitutional: + morbidly obese; no acute distress and no altered mental status Respiratory: normal respiratory effort, lungs clear to auscultation Cardiovascular: RRR, no murmur, no edema Gastrointestinal (Abdomen): Inspection/Auscultation: abdomen normal to inspection (morbidly obese abdomen); abdomen not distended and no abdominal surgical scar Percussion/Palpation: + abdomen tender (Tender in RUQ but more tender on the right anterior ribs) and abdomen soft; no guarding and abdomen not rigid Skin: no rashes, warm and dry Psychiatric: A+Ox3, euthymic affect Results & Data Vital Signs (Past 12 Hours) Vital Signs Temp Pulse Pulse Resp BP Pulse Ox 10/18/19 10:56 36.9 C 53 L 19 143/61 H 99 10/18/19 09:00 97 10/18/19 08:24 97 10/18/19 06:59 36.8 C 60 18 154/70 H 99 10/18/19 03:55 37.0 C 61 19 162/64 H 96 Laboratory Results 10/18/19 10/18/19 10/18/19 Range/Units 11:33 07:37 05:46 PT (9.0-12.0) Seconds INR (0.9-1.1) Sodium 142 (136-145) mmol/L Potassium 3.6 (3.5-5.1) mmol/L Chloride 106 (98-107) mmol/L Carbon Dioxide 33 H (21-32) mmol/L Anion Gap 3.0 (3-11) BUN 15 (7-18) mg/dl Creatinine 0.95 (0.6-1.2) mg/dl Est Cr Clr Drug Dosing 85.3 ml/min Est GFR ( Amer) 72.8 Est GFR (Non-Af Amer) 62.9 BUN/Creatinine Ratio 16.2 (10-20) Glucose 117 H (70-99) mg/dl POC Glucose 138 H 122 H (70-99) Calcium 8.3 L (8.5-10.1) mg/dl Iron 43 (35-150) mcg/dl TIBC 290 (250-450) mcg/dl Transferrin 230 (200-360) mg/dl Ferritin 69.5 (8-388) ng/ml 10/18/19 10/17/19 10/17/19 Range/Units 05:46 20:23 16:37 PT 23.0 H (9.0-12.0) Seconds INR 2.4 H (0.9-1.1) Sodium (136-145) mmol/L Potassium (3.5-5.1) mmol/L Chloride (98-107) mmol/L Carbon Dioxide (21-32) mmol/L Anion Gap (3-11) BUN (7-18) mg/dl Creatinine (0.6-1.2) mg/dl Est Cr Clr Drug Dosing ml/min Est GFR ( Amer) Est GFR (Non-Af Amer) BUN/Creatinine Ratio (10-20) Glucose (70-99) mg/dl POC Glucose 124 H 174 H (70-99) Calcium (8.5-10.1) mg/dl Iron (35-150) mcg/dl TIBC (250-450) mcg/dl Transferrin (200-360) mg/dl Ferritin (8-388) ng/ml (1) Acute kidney failure Acute renal failure type: unspecified Qualified Code(s): N17.9 - Acute kidney failure, unspecified
[2019-10-18] MEDS ORDERED: WARFARIN SOD 3 MG TAB PO SCH (16:00)
[2019-10-18] MEDS ORDERED: WARFARIN SOD 2 MG TAB PO SCH (16:00)
--- NOTE | 2019-10-18 16:59 | Ultrasound Report ---
US abdomen limited CLINICAL HISTORY: Ruq pain COMPARISON STUDY: No previous studies for comparison. FINDINGS: No pancreatic lesions are visualized. The pancreatic duct is the upper limits of normal lisa meter measuring 3 mm. There is mild hepatomegaly. No focal hepatic masses are delineated. There is no right-sided hydronephrosis. There is a 7 mm upper pole right renal cortical cyst. There is cholelithiasis. There is no wall thickening. There is a negative sonographic Melgar sign. There is mild common bile duct dilatation measuring 1 cm. IMPRESSION: 1. Cholelithiasis. There is no wall thickening and no pericholecystic fluid. 2. Mild common bile duct dilatation (10 mm). No evidence of intrahepatic biliary ductal dilatation 3. No pancreatic or hepatic masses identified Electronically signed by: Seth Navarro M.D. 10/18/2019 4:58 PM
[2019-10-18] MEDS: FUROSEMIDE 40 MG in SYRINGE 0 ML IV SCH (17:01)
--- NOTE | 2019-10-18 17:19 | Medical Student Progress Note ---
Date of Service October 18, 2019 Assessment & Plan (1) Acute kidney failure: was DIANNE Stage III in KDIGO staging now s/p hemodialysis and improving Creatinine resolved WNL (0.95mg/dl) Potassium is WNL (0.36mmol/L) Nephrology consulted Consider restarting oral antihypertensives in context of improved renal function Low salt diet encouraged- swallowing study showed okay for heart healthy diet, must use straw for thin liquids Monitor for acidosis, increase in Cr, hyperkalemia Acute renal failure type: unspecified Qualified Code(s): N17.9 - Acute kidney failure, unspecified (2) Respiratory failure: Respiratory failure requiring intubation in ICU Clinically improved Continue Bipap, Wean O2 back to home levels (0LPM) as tolerated Pneumonia Vs CHF 5day course cefepime finished Likely cardiogenic origin of respiratory failure Volume control Echo showed mild LVH and increased systolic pressure (10/14/19) Chronicity: acute Respiratory failure complication: hypoxia Qualified Code(s): J96.01 - Acute respiratory failure with hypoxia (3) RUQ abdominal pain: RUQ U/S Cholelithiasis with no thickening or pericholecystic fluid Mild common bile duct dilation No pancreatic or hepatic masses Bilirubin/LFTs are WNL (10/16/19) Likely non-acute. Surgery consulted Monitor clinically for red flag symptoms Low fatty/greasy diet advised (4) Anemia: Normocytic anemia in postmenopausal female (Hbg 8.5) baseline seems to be ~Hbg 10 Iron studies WNL B12 WNL at 356 (05/26/19) Monitor Hbg (5) Skin sore: Pt has reportedly had non healing ulcer for 17 years post surgery. No sign of infected on exam Wound care consulted and managing Proper padding and skin checks (6) Afib: On telemetry floor Continue amiodarone + Warfarin (7) Hypothyroid: Continue Levothyroxine (8) Asthma: Neb as needed Monitor 02 sat with goal above 93% in non-COPD Supervising Attestation I personally examined the patient and verified all lechuga points of history and exam, discussed case, and agree with decision making with Mari Marcos MS2 feeling better wtih breathing - breathing better and easier. doesn't want to return to [facility] - notes she likes the food here better. also then notes that RUQ abdominal pain bothering her and wonders if it's her gallbladder. d/w surgery - input appreciated vitals noted nad breathing unlabored faint rales more diffuse but laying flat - good air entry no rhonchi no wheeze. abd soft mild RUQ tenderness to deep palpation only with no guarding no rebound acute HFpEF - diuresing well, weaning O2, probably brought on by Na related fluid retention which in turn was brought on by change in diet from bad tooth (more soup) - will probably require some ongoing diuresis even after discharge but hopefully not indefinitely. beta jaci and acei to be resumed RUQ pain - nonspecific but she harbors concern on GB and certainly common etiology - RUQ US and surgical consult stable for med surg hopefully [facility] tomorrow otherwise as above Subjective Rekha Khanna is a 64y/o female s/p ICU admission for urgent dialysis in context of DIANNE and Hyper kalemia as well as intubation for respiratory failure. On day 3post ICU transfer back to medical floor she is breathing well on a nasal canula and bipap. She thinks that she is coughing less than yesterday and her flem is becoming more clear. She describes a sharp RUQ pain, especially when pressed on. The pain is not exacerbated by food or position, but is associated with a decreased appetite. She states that this pain is not new, but that it has gotten worse since this morning. She expresses concern over the bland taste of the heart healthy diet she might be placed on a [facility]. Otherwise she has no complaints and feels much better. Review of Systems Constitutional: + sweats; no fever, no chills and no weakness Feels hot/sweaty due to plastic bed contacting skin. Ear, Nose, Mouth, Throat: + dental pain and + dental caries Respiratory: + cough, + chest congestion and + sputum production Clear to yellow sputum reported Gastrointestinal: + nausea; no heartburn Integumentary: + non-healing lesions and + skin ulcer Psychiatric: no depression, no hopelessness, no suicidal ideation and no homicidal ideation Physical Exam Constitutional: + morbidly obese ENMT: Mouth: + dental restorations Respiratory: no labored breathing Auscultation: + rhonchi Cardiovascular: RRR, no murmur, no edema Gastrointestinal (Abdomen): Inspection/Auscultation: normal bowel sounds Percussion/Palpation: no ascites RUQ pain with deep palpation Skin: normal turgor Results & Data Vital Signs (Past 12 Hours) Vital Signs Temp Pulse Pulse Pulse Resp BP Pulse Ox 10/18/19 15:50 63 10/18/19 15:41 37.0 C 59 L 18 149/63 H 96 10/18/19 10:56 36.9 C 53 L 19 143/61 H 99 10/18/19 09:00 97 10/18/19 08:24 97 10/18/19 06:59 36.8 C 60 18 154/70 H 99
--- NOTE | 2019-10-18 19:11 | Billing Data ---
Coding Level of Care Code 23517 Subseq Hosp Care Lvl 3
[2019-10-18] MEDS: lisinopriL 20 MG TAB PO SCH (21:22)
[2019-10-18] MEDS: GABAPENTIN 600 MG TAB PO SCH (21:22)
[2019-10-18] MEDS: AMIODARONE 200 MG TAB PO SCH (21:23)
[2019-10-18] MEDS: FLUTICASONE PROPIONATE NA SPR 16 GM BTL SCH (21:24)
[2019-10-19] MEDS: LEVOTHYROXINE SODIUM 112 MCG TABLET PO SCH (06:06)
[2019-10-19 07:56] LABS: INR 1.6 (0.9-1.1); Prothrombin Time 16.3 Seconds (9.0-12.0)
[2019-10-19] MEDS: METOPROLOL TARTRATE 25 MG TAB PO SCH (08:54)
[2019-10-19] MEDS: FLUTICASONE/SALMETEROL 250/50 (ADVAIR) 14 PUFF/1 INHALER INH SCH (08:54)
[2019-10-19] MEDS: ATORVASTATIN 40 MG TAB PO SCH (08:56)
[2019-10-19] MEDS: lisinopriL 20 MG TAB PO SCH (08:56)
[2019-10-19] MEDS: DOCUSATE SODIUM/SENNA 50/8.6MG TAB PO SCH (08:56)
[2019-10-19] MEDS: INSULIN ASPART 100 UNITS/ML 3 ML PEN SC SCH ×2 (08:58→12:43)
[2019-10-19] MEDS: MAGNESIUM OXIDE 400 MG TAB PO SCH (09:56)
[2019-10-19] MEDS: AMIODARONE 200 MG TAB PO SCH (09:56)
[2019-10-19] MEDS: CEROVITE ADV FORMULA TAB PO SCH (09:56)
[2019-10-19] MEDS: GABAPENTIN 600 MG TAB PO SCH (09:56)
--- NOTE | 2019-10-19 11:04 | Surgery Progress Note ---
Date of Service October 19, 2019 Assessment & Plan (1) RUQ abdominal pain: US showing gallstones and no signs of acute cholecystitis. Her CBD is dilated at 10 mm but last set of LFTS on 10/16 were wnl including t. bili. likely has biliary colic but will need outpatient follow-up with GI for further evaluation of CBD dilatation as well as general surgery. She is advised to adhere to low fat diet. Our services signing off, please call if questions. Dr. Alanis has seen and discussed imaging with pt, agrees with above. Subjective feeling good this morning, was able to sleep throughout night, no abdominal pain tolerated low fat, carb diet for breakfast this morning without RUQ abdominal pain, nausea or vomiting Physical Exam Constitutional: WD/WN, vitals as above + morbidly obese; no acute distress Skin: no rashes, warm and dry Psychiatric: A+Ox3, euthymic affect Results & Data Vital Signs (Past 12 Hours) Vital Signs Temp Pulse Resp BP Pulse Ox 10/19/19 09:04 61 10/19/19 07:42 36.8 C 54 L 16 151/74 H 10/18/19 23:05 37.5 C 57 L 14 136/79 90 Laboratory Results 10/19/19 10/18/19 10/18/19 Range/Units 06:56 20:58 16:10 PT 16.3 H (9.0-12.0) Seconds INR 1.6 H (0.9-1.1) POC Glucose 197 H 136 H (70-99) 10/18/19 Range/Units 11:33 PT (9.0-12.0) Seconds INR (0.9-1.1) POC Glucose 138 H (70-99) Diagnostic Findings US abdomen limited CLINICAL HISTORY: Ruq pain COMPARISON STUDY: No previous studies for comparison. FINDINGS: No pancreatic lesions are visualized. The pancreatic duct is the upper limits of normal diameter measuring 3 mm. There is mild hepatomegaly. No focal hepatic masses are delineated. There is no right-sided hydronephrosis. There is a 7 mm upper pole right renal cortical cyst. There is cholelithiasis. There is no wall thickening. There is a negative sonographic Melgar sign. There is mild common bile duct dilatation measuring 1 cm. IMPRESSION: 1. Cholelithiasis. There is no wall thickening and no pericholecystic fluid. 2. Mild common bile duct dilatation (10 mm). No evidence of intrahepatic biliary ductal dilatation 3. No pancreatic or hepatic masses identified
--- NOTE | 2019-10-19 17:05 | Billing Data ---
Coding Level of Care Code D/C Day Management >30 mins
--- NOTE | 2019-10-19 17:14 | Billing Data ---
Coding Level of Care Code D/C Day Management >30 mins
== END 2019-10-19 14:55 | DRG 208 ==
LOC: ED 04:47 → SUATTDRO 06:38 → 2S 06:38 → 1E 11:33 → 2E 10-15 18:22 → 3N 10-18 18:46

== ENCOUNTER 2019-10-23 12:25 | Inpatient (IN) ==
[2019-10-23 13:17] LABS: Appearance Urine Clear (Clear); Bilirubin Urine Negative (Negative); Blood Urine Trace (Negative); Color Urine Yellow; Glucose Urine UA Negative (Negative); Ketones Urine Negative (Negative); Leukocyte Esterase Urine 1+ (Negative); Nitrite Urine Negative (Negative); Protein Urine Negative (Negative); Urobilinogen Urine Negative (Negative); pH Urine 5.5 (4.5-7.5)
[2019-10-23 13:33] LABS: Bacteria Urine 1+ (Negative); Epithelial Cell Urine >30 /lpf (0-5); RBC Urine 0-4 /hpf (0-4); WBC Urine >30 /hpf (0-5)
[2019-10-23 13:36] LABS: Basophils # (auto) 0.03 K/uL (0-0.2); Basophils % (auto) 0.3 %; Eosinophils # (auto) 0.44 K/uL (0-0.5); Eosinophils % (auto) 5.1 %; Hematocrit (blood only) 29.9 % (37-47); Hemoglobin 8.8 g/dL (12.0-16.0); Immature Granulocytes # (auto) 0.05 K/uL (0.00-0.02); Immature Granulocytes % (auto) 0.6 %; Lymphocytes % (auto) 11.6 %; Mean Corpuscular Hemoglobin 27.2 pg (25-34); Mean Corpuscular Hgb Conc 29.4 g/dL (32-36); Mean Corpuscular Volume 92.3 fL (80-100); Mean Platelet Volume 9.3 fL (7.4-10.4); Monocytes # (auto) 0.83 K/uL (0.11-0.59); Monocytes % (auto) 9.6 %; Neutrophils # (auto) 6.27 K/uL (1.4-6.5); Neutrophils % (auto) 72.8 %; Platelet Count 335 K/uL (130-400); RDW Coefficient of Variation 17.7 % (11.5-14.5); Red Blood Count 3.24 M/uL (4.2-5.4); White Blood Count 8.62 K/uL (4.8-10.8)
[2019-10-23 13:50] LABS: INR 1.4 (0.9-1.1); Partial Thromboplastin Time 28.2 Seconds (21.0-31.0)
[2019-10-23 13:53] LABS: Alanine Aminotransferase 25 U/L (12-78); Albumin Level 2.5 gm/dl (3.4-5.0); Aspartate Aminotransferase 18 U/L (15-37); BUN Creatinine Ratio 23.8 (10-20); Blood Urea Nitrogen 35 mg/dl (7-18); Calcium 8.7 mg/dl (8.5-10.1); Carbon Dioxide 31 mmol/L (21-32); Chloride 100 mmol/L (98-107); Creatinine Clr Calc Pharmacy 55.6 ml/min; Est GFR (Non-African American) 37.1; Glucose 91 mg/dl (70-99); Potassium 4.7 mmol/L (3.5-5.1); Sodium 138 mmol/L (136-145)
[2019-10-23 13:58] LABS: Albumin Globulin Ratio 0.6 (0.9-2); Alkaline Phosphatase 85 U/L (45-117); Bilirubin,Total 0.3 mg/dl (0.2-1); Total Protein 6.5 gm/dl (6.4-8.2); Troponin I < 0.015 ng/ml (0-0.045)
[2019-10-23 14:03] LABS: Base Excess VBG 5.7 mEq/L; HCO3 VBG 33 mmol/L; PCO2 VBG 66 mmHg (38-50); PO2 VBG 31 mmHg; pH VBG 7.32 (7.36-7.41)
[2019-10-23 14:04] LABS: Oxygen Saturation VBG < 60.0 %
--- NOTE | 2019-10-23 14:22 | XRay Report ---
XR chest 1V portable CLINICAL HISTORY: 64 years-old Female presenting with SOB. TECHNIQUE: Portable upright AP view of the chest was obtained. COMPARISON: 10/17/2019. FINDINGS: Right subclavian Mediport terminates in the superior cavoatrial junction. Atherosclerosis of the aort ic arch. Cardiac silhouette enlarged. Pulmonary vascular and interstitial prominence. Diffuse added d ensity at the lung suggested allowing for patient body habitus. No other focal opacity. No large effu isadora or pneumothorax. Left shoulder arthroplasty. Advanced degenerative changes of the right glenohum eral joint. IMPRESSION: 1. Allowing for body habitus and portable technique, cardiomegaly with volume overload and congestiv e change. Early/developing pulmonary edema is not excluded. This is similar to prior exam. Electronically signed by: Gavino Stephen M.D. 10/23/2019 2:21 PM
[2019-10-23] MEDS ORDERED: FUROSEMIDE 40 MG/4 ML VIAL IV STA (14:50)
[2019-10-23 14:52] LABS: Influenza A virus by PCR Neg for Influ A (Neg); Influenza B virus by PCR Neg for Influ B (Neg)
[2019-10-23] MEDS ORDERED: ALBUT/IPRATROP 3MG/0.5MG NEB 3 ML VIAL NEB STA (15:51)
[2019-10-23] MEDS ORDERED: ONDANSETRON INJ 2 MG/ML 2 ML VIAL IV PRN (18:08)
[2019-10-23] MEDS ORDERED: GLUCOSE 40% GEL 15 GM TUBE PO PRN (18:08)
[2019-10-23] MEDS ORDERED: GLUCAGON FOR INJ 1 MG VIAL SQ PRN (18:08)
[2019-10-23] MEDS ORDERED: HYDROmorphone INJ 0.5 MG/0.5 ML SYR IV PRN (18:08)
[2019-10-23] MEDS ORDERED: DEXTROSE 50% 50 ML SYRINGE IV PRN (18:08)
[2019-10-23] MEDS ORDERED: CARBOHYDRATES FOR HYPOGLYCEMIA PO PRN (18:08)
[2019-10-23] MEDS ORDERED: GLUCOSE 10 TABS/TUBE PO PRN (18:08)
--- NOTE | 2019-10-23 18:33 | Emergency Department Note ---
Entered by Alise Mckeon acting as a scribe for Tj Drake MD History of Present Illness General Chief complaint: Shortness of Breath/Dyspnea Stated complaint: SOB Time Seen by Provider: 10/23/19 13:17 Source: patient Mode of arrival: EMS Limitations: no limitations History of Present Illness Provider complaint: Shortness of breath Onset (ago): day(s) 2 Location: chest Pain Consistency: + other (worsening) Maximum Pain Intensity: 0 Quality: + other (shortness of breath) Relieved By: + other (breathing treatments) Associated symptoms: + cough (occasionally productive), + fever/chills (elevated temperature of 99) and + other (Additional symptoms: leg swelling, 10 lb weight gain); no nausea/vomiting The patient is a 64 white female from [facility] w/ PMHx of atrial fibrillation, CVA, type 2 diabetes, hypertension, pneumonia, sleep apnea on CPAP, asthma, respiratory failure, and kidney failure who presents to the ED w/ CC of worsening shortness of breath beginning 2 days ago. The patient reports that she has been feeling more short of breath and requiring more oxygen than usual. She states that breathing treatments every 2 hours have helped her symp toms, and she notes that she normally does not wear oxygen all the time. She also complains of an occasionally productive cough, slightly elevated temperature at 99 degrees, leg swelling, and a 10 lb weight gain over the past 2 days. She adds that she has a chronic wound on her right hip. She otherwise denies any nausea and vomiting. The patient reports that she is still taking antibiotics for her pneumonia. She does not recall receiving a flu swab at the time of diagnosis. She indicates that has never smoked tobacco and has not smoked marijuana recently. Home Medications Home Medications Medication Instructions Recorded Confirmed Type amiodarone 200 mg PO Q12 08/02/18 10/23/19 History aspirin 81 mg PO DAILY 08/02/18 10/23/19 History atorvastatin 40 mg PO QPM 08/02/18 10/23/19 History fluticasone propion-salmeterol 1 puff INHALATION BID 08/02/18 10/23/19 History fluticasone propionate 2 spray INTRANASAL HS 08/02/18 10/23/19 History gabapentin 600 mg PO TID 08/02/18 10/23/19 History lisinopril 20 mg PO Q12 08/02/18 10/23/19 History magnesium oxide 400 mg PO QAM 08/02/18 10/23/19 History metformin 1,000 mg PO BIDM 08/02/18 10/23/19 History multivitamin with minerals 1 tab PO QAM 08/02/18 10/23/19 History [Multiple Vitamin-Minerals] sitagliptin 100 mg PO QAM 08/02/18 10/23/19 History Lactinex 1 tab PO DAILY 10/13/19 10/23/19 History albuterol sulfate [Ventolin HFA] 2 puff INHALATION Q4 PRN 10/13/19 10/23/19 History insulin lispro [Humalog U-100 1 sliding scale dose SUBCUT 10/13/19 10/23/19 History Insulin] USEASDIRECTD PRN ipratropium-albuterol 3 ml INHALATION UD PRN 10/13/19 10/23/19 History levothyroxine 112 mcg PO QPM 10/13/19 10/23/19 History metoprolol tartrate 37.5 mg PO BID 10/13/19 10/23/19 History montelukast 10 mg PO QAM 10/13/19 10/23/19 History sennosides-docusate sodium 1 tab-cap PO BID 10/13/19 10/23/19 History [Senokot-S] warfarin [Coumadin] 2 mg PO DAILY@1600 30 Days #30 tab 10/18/19 10/23/19 Rx oxycodone 5 mg PO TID PRN #10 tab 10/19/19 10/23/19 Rx amoxicillin-pot clavulanate 1 tab PO Q12H 10/23/19 10/23/19 History [Augmentin] azithromycin 250 mg PO DAILY 10/23/19 10/23/19 History furosemide [Lasix] 40 mg PO BID 10/23/19 10/23/19 History Allergies Allergy/AdvReac Type Severity Reaction Status Date / Time Iodinated Contrast Media Allergy Intermediate HIVES Verified 10/13/19 05:53 latex Allergy Unknown LOW LEVEL Verified 10/13/19 05:53 LATEX ALLERGY Quinolones Allergy Unknown DR HICKS Verified 10/13/19 05:53 ASKED THAT ALLERGY BE ADDED 07/31/08 Sulfa (Sulfonamide Allergy Unknown HIVES Verified 10/13/19 05:53 Antibiotics) vancomycin Allergy Unknown HIVES, GI Verified 10/13/19 05:53 UPSET Past Med/Surg History Medical History A-fib Acute and chronic respiratory failure with hypoxia Acute kidney failure Asthma (Chronic) CVA (cerebral vascular accident) (Acute) DM type 2 (diabetes mellitus, type 2) (Chronic) History of left shoulder replacement (Acute) Hypertension (Chronic) Left cervical radiculopathy (Acute) Morbid obesity with body mass index of 50 or higher (Chronic) Osteoarthritis (Chronic) Pneumonia Sleep apnea (Chronic) "on cpap" Stroke-like symptoms Surgical History Status post bilateral total hip replacement (Chronic) Family History Other Family history non-contributory Social History Preferred Language: Haitian Communication Ability: Effective 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 and A total of 10 systems reviewed and were otherwise negative Physical Exam Vital Signs Vital Signs - 24 hr 10/23/19 12:45 10/23/19 13:15 10/23/19 13:20 Temperature 37.0 C Temperature Source Oral Pulse Rate 62 Pulse Rate [Apical] Pulse Rate from SpO2 Sensor Pulse Rhythm Regular Pulse Rhythm [Apical] Respiratory Rate 14 Respiratory Effort / Characteristics Respiratory Depth Normal Respiratory Pattern Regular Blood Pressure 111/83 Blood Pressure [Right Arm] Blood Pressure Mean 92 Blood Pressure Mean [Right Arm] Blood Pressure Position Lying Blood Pressure Position [Right Arm] Pulse Oximetry 99 99 98 Oxygen Delivery Method Nasal Cannula Nasal Cannula Nasal Cannula Oxygen Flow Rate 4 4 4 Sepsis Recent Fever Within 48 Hours No Sepsis New/Unexplained Change in Mental Status No Sepsis Action Taken by Nursing No Action Required Oxygen Flow Rate - Titration 4 Pulse Oximetry Post Tiitration 99 10/23/19 14:01 10/23/19 14:10 10/23/19 14:30 Temperature Temperature Source Pulse Rate 63 60 Pulse Rate [Apical] 67 Pulse Rate from SpO2 Sensor 60 Pulse Rhythm Pulse Rhythm [Apical] Regular Respiratory Rate 15 15 16 Respiratory Effort / Characteristics Non-Labored Respiratory Depth Normal Respiratory Pattern Blood Pressure 114/55 L 93/43 L Blood Pressure [Right Arm] 114/55 L Blood Pressure Mean 70 51 Blood Pressure Mean [Right Arm] 74 Blood Pressure Position Blood Pressure Position [Right Arm] Sitting Pulse Oximetry 92 87 L 92 Oxygen Delivery Method Room Air Oxygen Flow Rate 4 4 Sepsis Recent Fever Within 48 Hours Sepsis New/Unexplained Change in Mental Status Sepsis Action Taken by Nursing Oxygen Flow Rate - Titration Pulse Oximetry Post Tiitration 10/23/19 15:01 10/23/19 15:02 10/23/19 15:15 Temperature Temperature Source Pulse Rate 59 L 59 L 60 Pulse Rate [Apical] Pulse Rate from SpO2 Sensor 60 60 60 Pulse Rhythm Pulse Rhythm [Apical] Respiratory Rate 16 13 22 Respiratory Effort / Characteristics Respiratory Depth Respiratory Pattern Blood Pressure 89/49 L Blood Pressure [Right Arm] Blood Pressure Mean 52 Blood Pressure Mean [Right Arm] Blood Pressure Position Blood Pressure Position [Right Arm] Pulse Oximetry 98 99 100 Oxygen Delivery Method Oxygen Flow Rate 4 4 4 Sepsis Recent Fever Within 48 Hours Sepsis New/Unexplained Change in Mental Status Sepsis Action Taken by Nursing Oxygen Flow Rate - Titration Pulse Oximetry Post Tiitration 10/23/19 15:30 10/23/19 15:31 10/23/19 15:45 Temperature Temperature Source Pulse Rate 61 60 59 L Pulse Rate [Apical] Pulse Rate from SpO2 Sensor Pulse Rhythm Pulse Rhythm [Apical] Respiratory Rate 17 12 19 Respiratory Effort / Characteristics Respiratory Depth Respiratory Pattern Blood Pressure 109/77 Blood Pressure [Right Arm] Blood Pressure Mean 83 Blood Pressure Mean [Right Arm] Blood Pressure Position Blood Pressure Position [Right Arm] Pulse Oximetry Oxygen Delivery Method Oxygen Flow Rate 4 4 4 Sepsis Recent Fever Within 48 Hours Sepsis New/Unexplained Change in Mental Status Sepsis Action Taken by Nursing Oxygen Flow Rate - Titration Pulse Oximetry Post Tiitration 10/23/19 16:00 10/23/19 16:01 Temperature Temperature Source Pulse Rate 61 60 Pulse Rate [Apical] 91 H Pulse Rate from SpO2 Sensor Pulse Rhythm Pulse Rhythm [Apical] Respiratory Rate 22 17 Respiratory Effort / Characteristics Spontaneous Respiratory Depth Respiratory Pattern Blood Pressure 112/54 L Blood Pressure [Right Arm] Blood Pressure Mean 61 Blood Pressure Mean [Right Arm] Blood Pressure Position Blood Pressure Position [Right Arm] Pulse Oximetry 97 Oxygen Delivery Method Nebulizer Nasal Cannula Oxygen Flow Rate 4 Sepsis Recent Fever Within 48 Hours Sepsis New/Unexplained Change in Mental Status Sepsis Action Taken by Nursing Oxygen Flow Rate - Titration Pulse Oximetry Post Tiitration GENERAL: Well nourished, non-toxic, wearing glasses, nasal cannula in place. EYE EXAM: Normal conjunctiva. PERRL, no anisocoria and EOM's grossly intact w/o pain. OROPHARYNX: Moist mucous membranes. Grossly normal dentition. NECK: Supple, no nuchal rigidity, no adenopathy, non-tender. No signs of meningismus. LUNGS: Coarse breath sounds throughout. Normal chest wall mechanics. HEART: NSR, no MRG. ABDOMEN: Abdomen soft, non-tender, normo-active bowel sounds, no masses, no joseluis ound or guarding. BACK: No CVA TTP. SKIN: No rashes and no bruising. UPPER EXTREMITIES: Upper extremities are grossly normal. LOWER EXTREMITIES: Lower extremity edema present. No calf pain. Chronic non- healing wound of the right proximal lateral lower extremity. Does not appear to be cellulitic or with purulent drainage. NEURO EXAM: A&O x3, cranial nerves II-XII grossly intact, normal speech, moves all 4 extremities on command w/o issue. Course Course 1332: The patient was evaluated in room B10, and a complete history and physical examination were performed. 1337: Orders were placed. The patient was started on a awake overnight monitor at this time. 1546: I reviewed the patient's case with Dr. Ericka Hernandez. Dr. Barnett will evaluate the patient for further management. Consultations Consultation #1: I reviewed the patient's case with Dr. Ericka Hernandez. Dr. Barnett will evaluate the patient for further management. Time: 15:46 Administered Medications Discontinued Medications Albuterol (Duoneb) 3 ml NEB NOW STA Stop: 10/23/19 15:52 Last Admin: 10/23/19 15:59 Dose: 3 ml Documented by: [id number] Furosemide (Lasix) 40 mg IV NOW STA Stop: 10/23/19 14:51 Last Admin: 10/23/19 15:55 Dose: 40 mg Documented by: [id number] Critical Care Time Critical Care Time: Yes Total Critical Care Time: 40 I have personally spent 40 minutes of critical care time in direct management of this patient. This includes bedside care, interpretation of diagnostic studies, and testing, discussion with consultants, patient, and family members, and other require inpatient management activities. This 40 minutes is in excess of all separately billable procedures. Medical Decision Making Differential Diagnosis Differential diagnosis includes: infections, reactive airway disease, pneumonia, pneumothorax, COPD, CHF, cardiac ischemia, pulmonary embolism, musculoskeletal, gastrointestinal, as well as others were entertained. Medical Records Attestation: I reviewed the patient's medical records. I reviewed portions of the patient's old chart on the electronic medical record. The patient was recently discharged on October 19 for acute kidney failure, respiratory failure, and pneumonia. During her stay, her kidney failure improved and her creatinine was 0.9 upon discharge. The patient was intubated and then extubated out of concern for aspiration. Home Medications Current Medication List: was personally reviewed by me Laboratory Data Attestation: I reviewed the patient's lab results. Result diagrams: 10/23/19 13:21 10/23/19 13:21 Lab Results 10/23/19 10/23/19 10/23/19 Range/Units 13:00 13:21 13:21 WBC 8.62 (4.8-10.8) K/uL RBC 3.24 L (4.2-5.4) M/uL Hgb 8.8 L (12.0-16.0) g/dL Hct 29.9 L (37-47) % MCV 92.3 (80-100) fL MCH 27.2 (25-34) pg MCHC 29.4 L (32-36) g/dL RDW Std Deviation 60.0 H (36.4-46.3) fL RDW Coeff of Mehnaz 17.7 H (11.5-14.5) % Plt Count 335 (130-400) K/uL MPV 9.3 (7.4-10.4) fL Immature Gran % (Auto) 0.6 % Neut % (Auto) 72.8 % Lymph % (Auto) 11.6 % [place] % (Auto) 9.6 % Eos % (Auto) 5.1 % Baso % (Auto) 0.3 % Immature Gran # (Auto) 0.05 H (0.00-0.02) K/uL Neut # (Auto) 6.27 (1.4-6.5) K/uL Lymph # (Auto) 1.00 L (1.2-3.4) K/uL [place] # (Auto) 0.83 H (0.11-0.59) K/uL Eos # (Auto) 0.44 (0-0.5) K/uL Baso # (Auto) 0.03 (0-0.2) K/uL PT 14.0 H (9.0-12.0) Seconds INR 1.4 H (0.9-1.1) APTT 28.2 (21.0-31.0) Seconds PTT Ratio 1.0 VBG pH (7.36-7.41) VBG pCO2 (38-50) mmHg VBG pO2 mmHg VBG HCO3 mmol/L VBG O2 Saturation % VBG Base Excess mEq/L Barometric Pressure mm/Hg Sodium (136-145) mmol/L Potassium (3.5-5.1) mmol/L Chloride (98-107) mmol/L Carbon Dioxide (21-32) mmol/L Anion Gap (3-11) BUN (7-18) mg/dl Creatinine (0.6-1.2) mg/dl Est Cr Clr Drug Dosing ml/min Est GFR ( Amer) Est GFR (Non-Af Amer) BUN/Creatinine Ratio (10-20) Glucose (70-99) mg/dl Lactate (0.4-2.0) mmol/L Calcium (8.5-10.1) mg/dl Total Bilirubin (0.2-1) mg/dl AST (15-37) U/L ALT (12-78) U/L Alkaline Phosphatase (45-117) U/L Troponin I (0-0.045) ng/ml Total Protein (6.4-8.2) gm/dl Albumin (3.4-5.0) gm/dl Globulin (2.5-4.0) gm/dl Albumin/Globulin Ratio (0.9-2) Procalcitonin (0-0.5) ng/ml Urine Color Yellow Urine Appearance Clear (Clear) Urine pH 5.5 (4.5-7.5) Ur Specific [place] 1.010 (1.000-1.030) Urine Protein Negative (Negative) Urine Glucose (UA) Negative (Negative) Urine Ketones Negative (Negative) Urine Blood Trace H (Negative) Urine Nitrite Negative (Negative) Urine Bilirubin Negative (Negative) Urine Urobilinogen Negative (Negative) Ur Leukocyte Esterase 1+ H (Negative) Urine RBC 0-4 (0-4) /hpf Urine WBC >30 H (0-5) /hpf Ur Epithelial Cells >30 H (0-5) /lpf Urine Bacteria 1+ H (Negative) Urine Yeast Budding w/ Hyphae A (None Prsent) Influenza Type A (PCR) (Neg) Influenza Type B (PCR) (Neg) 10/23/19 10/23/19 10/23/19 Range/Units 13:21 13:21 13:48 WBC (4.8-10.8) K/uL RBC (4.2-5.4) M/uL Hgb (12.0-16.0) g/dL Hct (37-47) % MCV (80-100) fL MCH (25-34) pg MCHC (32-36) g/dL RDW Std Deviation (36.4-46.3) fL RDW Coeff of Mehnaz (11.5-14.5) % Plt Count (130-400) K/uL MPV (7.4-10.4) fL Immature Gran % (Auto) % Neut % (Auto) % Lymph % (Auto) % [place] % (Auto) % Eos % (Auto) % Baso % (Auto) % Immature Gran # (Auto) (0.00-0.02) K/uL Neut # (Auto) (1.4-6.5) K/uL Lymph # (Auto) (1.2-3.4) K/uL [place] # (Auto) (0.11-0.59) K/uL Eos # (Auto) (0-0.5) K/uL Baso # (Auto) (0-0.2) K/uL PT (9.0-12.0) Seconds INR (0.9-1.1) APTT (21.0-31.0) Seconds PTT Ratio VBG pH (7.36-7.41) VBG pCO2 (38-50) mmHg VBG pO2 mmHg VBG HCO3 mmol/L VBG O2 Saturation % VBG Base Excess mEq/L Barometric Pressure mm/Hg Sodium 138 (136-145) mmol/L Potassium 4.7 (3.5-5.1) mmol/L Chloride 100 (98-107) mmol/L Carbon Dioxide 31 (21-32) mmol/L Anion Gap 7.0 (3-11) BUN 35 H (7-18) mg/dl Creatinine 1.47 H (0.6-1.2) mg/dl Est Cr Clr Drug Dosing 55.6 ml/min Est GFR ( Amer) 43.0 Est GFR (Non-Af Amer) 37.1 BUN/Creatinine Ratio 23.8 H (10-20) Glucose 91 (70-99) mg/dl Lactate 2.3 H* (0.4-2.0) mmol/L Calcium 8.7 (8.5-10.1) mg/dl Total Bilirubin 0.3 (0.2-1) mg/dl AST 18 (15-37) U/L ALT 25 (12-78) U/L Alkaline Phosphatase 85 (45-117) U/L Troponin I < 0.015 (0-0.045) ng/ml Total Protein 6.5 (6.4-8.2) gm/dl Albumin 2.5 L (3.4-5.0) gm/dl Globulin 4.0 (2.5-4.0) gm/dl Albumin/Globulin Ratio 0.6 L (0.9-2) Procalcitonin 0.09 (0-0.5) ng/ml Urine Color Urine Appearance (Clear) Urine pH (4.5-7.5) Ur Specific [place] (1.000-1.030) Urine Protein (Negative) Urine Glucose (UA) (Negative) Urine Ketones (Negative) Urine Blood (Negative) Urine Nitrite (Negative) Urine Bilirubin (Negative) Urine Urobilinogen (Negative) Ur Leukocyte Esterase (Negative) Urine RBC (0-4) /hpf Urine WBC (0-5) /hpf Ur Epithelial Cells (0-5) /lpf Urine Bacteria (Negative) Urine Yeast (None Prsent) Influenza Type A (PCR) (Neg) Influenza Type B (PCR) (Neg) 10/23/19 10/23/19 Range/Units 13:48 13:59 WBC (4.8-10.8) K/uL RBC (4.2-5.4) M/uL Hgb (12.0-16.0) g/dL Hct (37-47) % MCV (80-100) fL MCH (25-34) pg MCHC (32-36) g/dL RDW Std Deviation (36.4-46.3) fL RDW Coeff of Mehnaz (11.5-14.5) % Plt Count (130-400) K/uL MPV (7.4-10.4) fL Immature Gran % (Auto) % Neut % (Auto) % Lymph % (Auto) % [place] % (Auto) % Eos % (Auto) % Baso % (Auto) % Immature Gran # (Auto) (0.00-0.02) K/uL Neut # (Auto) (1.4-6.5) K/uL Lymph # (Auto) (1.2-3.4) K/uL [place] # (Auto) (0.11-0.59) K/uL Eos # (Auto) (0-0.5) K/uL Baso # (Auto) (0-0.2) K/uL PT (9.0-12.0) Seconds INR (0.9-1.1) APTT (21.0-31.0) Seconds PTT Ratio VBG pH 7.32 L (7.36-7.41) VBG pCO2 66 H (38-50) mmHg VBG pO2 31 mmHg VBG HCO3 33 mmol/L VBG O2 Saturation < 60.0 % VBG Base Excess 5.7 mEq/L Barometric Pressure 731.5 mm/Hg Sodium (136-145) mmol/L Potassium (3.5-5.1) mmol/L Chloride (98-107) mmol/L Carbon Dioxide (21-32) mmol/L Anion Gap (3-11) BUN (7-18) mg/dl Creatinine (0.6-1.2) mg/dl Est Cr Clr Drug Dosing ml/min Est GFR ( Amer) Est GFR (Non-Af Amer) BUN/Creatinine Ratio (10-20) Glucose (70-99) mg/dl Lactate (0.4-2.0) mmol/L Calcium (8.5-10.1) mg/dl Total Bilirubin (0.2-1) mg/dl AST (15-37) U/L ALT (12-78) U/L Alkaline Phosphatase (45-117) U/L Troponin I (0-0.045) ng/ml Total Protein (6.4-8.2) gm/dl Albumin (3.4-5.0) gm/dl Globulin (2.5-4.0) gm/dl Albumin/Globulin Ratio (0.9-2) Procalcitonin (0-0.5) ng/ml Urine Color Urine Appearance (Clear) Urine pH (4.5-7.5) Ur Specific [place] (1.000-1.030) Urine Protein (Negative) Urine Glucose (UA) (Negative) Urine Ketones (Negative) Urine Blood (Negative) Urine Nitrite (Negative) Urine Bilirubin (Negative) Urine Urobilinogen (Negative) Ur Leukocyte Esterase (Negative) Urine RBC (0-4) /hpf Urine WBC (0-5) /hpf Ur Epithelial Cells (0-5) /lpf Urine Bacteria (Negative) Urine Yeast (None Prsent) Influenza Type A (PCR) Neg for Influ A (Neg) Influenza Type B (PCR) Neg for Influ B (Neg) Imaging Data Radiologist's Impression: Radiology results as stated below per my review and the radiologist's interpretation: XR chest 1V portable CLINICAL HISTORY: 64 years-old Female presenting with SOB. TECHNIQUE: Portable upright AP view of the chest was obtained. COMPARISON: 10/17/2019. FINDINGS: Right subclavian Mediport terminates in the superior cavoatrial junction. Atherosclerosis of the aortic arch. Cardiac silhouette enlarged. Pulmonary vascular and interstitial prominence. Diffuse added density at the lung suggested allowing for patient body habitus. No other focal opacity. No large effusion or pneumothorax. Left shoulder arthroplasty. Advanced degenerative changes of the right glenohumeral joint. IMPRESSION: 1. Allowing for body habitus and portable technique, cardiomegaly with volume overload and congestive change. Early/developing pulmonary edema is not excluded. This is similar to prior exam. Electronically signed by: Gavino Stephen M.D. 10/23/2019 2:21 PM ECG Data Attestation: I personally reviewed and interpreted this ECG as follows: Indication: + SOB/dyspnea Rate (beats per minute): 61 Rhythm: + normal sinus ECG [place]: + Normal ECG ST segments: + Normal ST segments (no ST segment changes) ECG Findings: + Other (normal intervals) Blood Pressure Blood Pressure Findings: Low blood pressure Blood Pressure Disposition: further management by hospitalist BILLIE Narrative The patient is a 64 white female from [facility] w/ PMHx of atrial fibrillation, CVA, type 2 diabetes, hypertension, pneumonia, sleep apnea on CPAP, asthma, respiratory failure, and kidney failure who presents to the ED w/ CC of worsening shortness of breath beginning 2 days ago. Patient was seen and evaluated the bedside. The patient did present with increasing shortness of breath weight gain as well as increased oxygen needs. The patient did have a recent an ICU admission due to concern for CHF and volume overload versus pneumonia. Patient did have blood work completed along with influenza chest x-ray. Patient has a normal white count. Chronic and stable anemia. Patient's kidney function appears to be slightly worse. This may be due to volume overload as the patient's chest x-ray does show that this may be consistent. The patient does have a an elevated CO2 with a slightly lower pH the patient was placed on BiPAP. Lactate is 2.8. Believe this may be more related to volume overload. Will defer antibiotics at this time. Patient is a negative flu. I did speak the on-call hospitalist agreed to further evaluate treat the patient. Patient was subsequently admitted to medicine service. Impression & Plan Respiratory failure with hypoxia and hypercapnia, Volume overload, CHF exacerbation Discharge Plan Visit Data *Final* Discharge Date/Time: 10/23/19 17:35 Chief Complaint: Shortness of Breath/Dyspnea Stated Complaint: SOB ED Provider: Tj Drake Discharge Problem: Respiratory failure with hypoxia and hypercapnia, Volume overload, CHF exacerbation Patient Disposition: Admitted As Inpatient Discharge Instructions Interventions: ED Discharge Assessment Last Done: 10/23/19 17:35 Discharge Problem: Respiratory failure with hypoxia and hypercapnia Qualifiers: Chronicity: unspecified Qualified Code(s): J96.91 - Respiratory failure, unspecified with hypoxia Volume overload Qualifiers: Hypervolemia type: unspecified Qualified Code(s): E87.70 - Fluid overload, unspecified CHF exacerbation Qualifiers: Heart failure type: unspecified Qualified Code(s): I50.9 - Heart failure, unspecified The scribe's documentation has been prepared under my direction and personally reviewed by me in its entirety. I confirm that the note above accurately reflects all work, treatment, procedures, and medical decision making performed by me.
[2019-10-23] MEDS: ALBUT/IPRATROP 3MG/0.5MG NEB 3 ML VIAL NEB SCH (19:22)
[2019-10-23] MEDS: FLUTICASONE/SALMETEROL 250/50 (ADVAIR) 14 PUFF/1 INHALER INH SCH (20:13)
[2019-10-23] MEDS: AMIODARONE 200 MG TAB PO SCH (20:15)
[2019-10-23] MEDS: FLUTICASONE PROPIONATE NA SPR 16 GM BTL SCH (20:16)
--- NOTE | 2019-10-23 20:16 | History & Physical Report ---
Date of Service October 23, 2019 Assessment & Plan (1) Respiratory failure with hypoxia and hypercapnia: Admit PCU Continue supplemental oxygen BiPAP was ordered, but patient refused full face mask. She called to see if friend could bring hers from home to hospital. Continue Augmentin and azithromycin which is completing treatment for pneumonia I do not feel she is infected at this time. (2) Volume overload: IV Lasix 40mg given in the ED In that I do not feel her CXR looked much different from previous, I simply continued her oral 40mg BID Especially in light of her renal function. She did require 2 dialysis treatments in 08/27 due to hyperkalemia in the face of fluid overload. (3) Hypothyroid: Continue levothyroxine (4) Afib: Continue warfarin INR 1.4, but patient reports that this has been trending up as she was off recently. Continue amiodarone and metoprolol. (5) DM type 2 (diabetes mellitus, type 2): Continue sitagliptin Insulin sliding scale coverage Hold metformin (6) Hypertension: Has not been issue, actually hypotensive on presentation I held lisinopril due to renal function and low bp. (7) Sleep apnea: Ok to use mask from home (8) Morbid obesity: I feel there is likely component of obesity hypoventilation syndrome. History of Present Illness 64 y/o female presented to the ED from [facility] with 2 day history of increasing SOB. Nursing at [facility] reported an 11 lbs weight gain over 48 hours. The patient tells me that her chest felt tight. She has a chronic intermittent cough of which there has been no change. She normally uses oxygen prn, but recently using around the clock. She is continuing Augmentin and azithromycin for a recent pneumonia. No N/V/D, diaphoresis, syncope, or dizziness. She reports having a wound over her right hip. Primary Care Provider: [facility] Allergies Allergy/AdvReac Type Severity Reaction Status Date / Time Iodinated Contrast Media Allergy Intermediate HIVES Verified 10/13/19 05:53 latex Allergy Unknown LOW LEVEL Verified 10/13/19 05:53 LATEX ALLERGY Quinolones Allergy Unknown DR HICKS Verified 10/13/19 05:53 ASKED THAT ALLERGY BE ADDED 07/31/08 Sulfa (Sulfonamide Allergy Unknown HIVES Verified 10/13/19 05:53 Antibiotics) vancomycin Allergy Unknown HIVES, GI Verified 10/13/19 05:53 UPSET Home Medications Home Medications Medication Instructions Recorded Confirmed Type amiodarone 200 mg PO Q12 08/02/18 10/23/19 History aspirin 81 mg PO DAILY 08/02/18 10/23/19 History atorvastatin 40 mg PO QPM 08/02/18 10/23/19 History fluticasone propion-salmeterol 1 puff INHALATION BID 08/02/18 10/23/19 History fluticasone propionate 2 spray INTRANASAL HS 08/02/18 10/23/19 History gabapentin 600 mg PO TID 08/02/18 10/23/19 History lisinopril 20 mg PO Q12 08/02/18 10/23/19 History magnesium oxide 400 mg PO QAM 08/02/18 10/23/19 History metformin 1,000 mg PO BIDM 08/02/18 10/23/19 History multivitamin with minerals 1 tab PO QAM 08/02/18 10/23/19 History [Multiple Vitamin-Minerals] sitagliptin 100 mg PO QAM 08/02/18 10/23/19 History Lactinex 1 tab PO DAILY 10/13/19 10/23/19 History albuterol sulfate [Ventolin HFA] 2 puff INHALATION Q4 PRN 10/13/19 10/23/19 History insulin lispro [Humalog U-100 1 sliding scale dose SUBCUT 10/13/19 10/23/19 History Insulin] USEASDIRECTD PRN ipratropium-albuterol 3 ml INHALATION UD PRN 10/13/19 10/23/19 History levothyroxine 112 mcg PO QPM 10/13/19 10/23/19 History metoprolol tartrate 37.5 mg PO BID 10/13/19 10/23/19 History montelukast 10 mg PO QAM 10/13/19 10/23/19 History sennosides-docusate sodium 1 tab-cap PO BID 10/13/19 10/23/19 History [Senokot-S] warfarin [Coumadin] 2 mg PO DAILY@1600 30 Days #30 tab 10/18/19 10/23/19 Rx oxycodone 5 mg PO TID PRN #10 tab 10/19/19 10/23/19 Rx amoxicillin-pot clavulanate 1 tab PO Q12H 10/23/19 10/23/19 History [Augmentin] azithromycin 250 mg PO DAILY 10/23/19 10/23/19 History furosemide [Lasix] 40 mg PO BID 10/23/19 10/23/19 History Past Med/Surg History Medical History A-fib Acute and chronic respiratory failure with hypoxia Acute kidney failure Asthma (Chronic) CVA (cerebral vascular accident) (Acute) DM type 2 (diabetes mellitus, type 2) (Chronic) History of left shoulder replacement (Acute) Hypertension (Chronic) Left cervical radiculopathy (Acute) Morbid obesity with body mass index of 50 or higher (Chronic) Osteoarthritis (Chronic) Pneumonia Sleep apnea (Chronic) "on cpap" Stroke-like symptoms Surgical History Status post bilateral total hip replacement (Chronic) Family History Other Family history non-contributory Social History Preferred Language: Wolof Communication Ability: Effective Felt Puller Required: No Beliefs That Will Affect Care: None marital status: Single Current Living Situation: Shelter Current Living Situation Comment: [facility] Other Information That Helps Us Care for You: No Feels Safe at Home: Yes Safety Concerns: Feels Safe At This Time Smoking Status: Never smoker Do You Dip or Chew Tobacco: No ; Second Hand Exposure: No ; Tobacco Cessation Education Requested by Patient: No Hx Alcohol Use: No Hx Substance Use: No Review of Systems Review of Systems: All systems reviewed & are unremarkable except as noted in HPI & below Physical Exam Physical Exam: General- adult female, NAD Head- atraumatic Eyes- PERRL, EOMI, anicteric ENT- oropharynx clear Neck- supple, no JVD, no adenopathy, no thyromegaly. Lungs- Decreased breath sounds at the bases with few crackles in the lower fraser. Heart- regular rhythm; no murmur, no gallop, no rub appreciated Abdomen- normal bowel sounds, soft, nontender. Extremities- + 2 pitting edema b/l lower ext. no calf tenderness. Neuro- alert, oriented x 3; PERRL, EOMI; awning installer II-XII grossly intact, Non-focal. Skin- warm & dry Results & Data Vital Signs (Past 12 Hours) Vital Signs Temp Pulse Pulse Pulse Resp BP BP 10/23/19 19:38 36.8 C 62 22 124/68 10/23/19 19:25 60 20 10/23/19 18:11 36.7 C 65 20 120/77 10/23/19 17:35 61 19 118/46 L 10/23/19 16:01 60 91 H 17 10/23/19 16:00 61 22 112/54 L 10/23/19 15:45 59 L 19 10/23/19 15:31 60 12 10/23/19 15:30 61 17 109/77 10/23/19 15:15 60 22 10/23/19 15:02 59 L 13 10/23/19 15:01 59 L 16 89/49 L 10/23/19 14:30 60 16 93/43 L 10/23/19 14:10 67 15 114/55 L 10/23/19 14:01 63 15 114/55 L 10/23/19 13:20 10/23/19 13:15 10/23/19 12:45 37.0 C 62 14 111/83 Pulse Ox 10/23/19 19:38 100 10/23/19 19:25 96 10/23/19 18:11 97 10/23/19 17:35 96 10/23/19 16:01 97 10/23/19 16:00 10/23/19 15:45 10/23/19 15:31 10/23/19 15:30 10/23/19 15:15 100 10/23/19 15:02 99 10/23/19 15:01 98 10/23/19 14:30 92 10/23/19 14:10 87 L 10/23/19 14:01 92 10/23/19 13:20 98 10/23/19 13:15 99 10/23/19 12:45 99 Laboratory Results Laboratory Results WBC 8.62 K/uL (4.8-10.8) 10/23/19 13:21 RBC 3.24 M/uL (4.2-5.4) L 10/23/19 13:21 Hgb 8.8 g/dL (12.0-16.0) L 10/23/19 13:21 Hct 29.9 % (37-47) L 10/23/19 13:21 MCV 92.3 fL (80-100) 10/23/19 13:21 MCH 27.2 pg (25-34) 10/23/19 13:21 MCHC 29.4 g/dL (32-36) L 10/23/19 13:21 RDW Std Deviation 60.0 fL (36.4-46.3) H 10/23/19 13:21 RDW Coeff of Mehnaz 17.7 % (11.5-14.5) H 10/23/19 13:21 Plt Count 335 K/uL (130-400) 10/23/19 13:21 MPV 9.3 fL (7.4-10.4) 10/23/19 13:21 Immature Gran % (Auto) 0.6 % 10/23/19 13:21 Neut % (Auto) 72.8 % 10/23/19 13:21 Lymph % (Auto) 11.6 % 10/23/19 13:21 [place] % (Auto) 9.6 % 10/23/19 13:21 Eos % (Auto) 5.1 % 10/23/19 13:21 Baso % (Auto) 0.3 % 10/23/19 13:21 Immature Gran # (Auto) 0.05 K/uL (0.00-0.02) H 10/23/19 13:21 Neut # (Auto) 6.27 K/uL (1.4-6.5) 10/23/19 13:21 Lymph # (Auto) 1.00 K/uL (1.2-3.4) L 10/23/19 13:21 [place] # (Auto) 0.83 K/uL (0.11-0.59) H 10/23/19 13:21 Eos # (Auto) 0.44 K/uL (0-0.5) 10/23/19 13:21 Baso # (Auto) 0.03 K/uL (0-0.2) 10/23/19 13:21 PT 14.0 Seconds (9.0-12.0) H 10/23/19 13:21 INR 1.4 (0.9-1.1) H 10/23/19 13:21 APTT 28.2 Seconds (21.0-31.0) 10/23/19 13:21 PTT Ratio 1.0 10/23/19 13:21 VBG pH 7.32 (7.36-7.41) L 10/23/19 13:48 VBG pCO2 66 mmHg (38-50) H 10/23/19 13:48 VBG pO2 31 mmHg 10/23/19 13:48 VBG HCO3 33 mmol/L 10/23/19 13:48 VBG O2 Saturation < 60.0 % 10/23/19 13:48 VBG Base Excess 5.7 mEq/L 10/23/19 13:48 Barometric Pressure 731.5 mm/Hg 10/23/19 13:48 Sodium 138 mmol/L (136-145) 10/23/19 13:21 Potassium 4.7 mmol/L (3.5-5.1) 10/23/19 13:21 Chloride 100 mmol/L (98-107) 10/23/19 13:21 Carbon Dioxide 31 mmol/L (21-32) 10/23/19 13:21 Anion Gap 7.0 (3-11) 10/23/19 13:21 BUN 35 mg/dl (7-18) H 10/23/19 13:21 Creatinine 1.47 mg/dl (0.6-1.2) H 10/23/19 13:21 Est Cr Clr Drug Dosing 55.6 ml/min 10/23/19 13:21 Est GFR ( Amer) 43.0 10/23/19 13:21 Est GFR (Non-Af Amer) 37.1 10/23/19 13:21 BUN/Creatinine Ratio 23.8 (10-20) H 10/23/19 13:21 Glucose 91 mg/dl (70-99) 10/23/19 13:21 POC Glucose 111 (70-99) H 10/23/19 18:04 Lactate 2.8 mmol/L (0.4-2.0) H* 10/23/19 16:38 Calcium 8.7 mg/dl (8.5-10.1) 10/23/19 13:21 Total Bilirubin 0.3 mg/dl (0.2-1) 10/23/19 13:21 AST 18 U/L (15-37) 10/23/19 13:21 ALT 25 U/L (12-78) 10/23/19 13:21 Alkaline Phosphatase 85 U/L (45-117) 10/23/19 13:21 Troponin I < 0.015 ng/ml (0-0.045) 10/23/19 13:21 Total Protein 6.5 gm/dl (6.4-8.2) 10/23/19 13:21 Albumin 2.5 gm/dl (3.4-5.0) L 10/23/19 13:21 Globulin 4.0 gm/dl (2.5-4.0) 10/23/19 13:21 Albumin/Globulin Ratio 0.6 (0.9-2) L 10/23/19 13:21 Procalcitonin 0.09 ng/ml (0-0.5) 10/23/19 13:21 Urine Color Yellow 10/23/19 13:00 Urine Appearance Clear (Clear) 10/23/19 13:00 Urine pH 5.5 (4.5-7.5) 10/23/19 13:00 Ur Specific Whitmer 1.010 (1.000-1.030) 10/23/19 13:00 Urine Protein Negative (Negative) 10/23/19 13:00 Urine Glucose (UA) Negative (Negative) 10/23/19 13:00 Urine Ketones Negative (Negative) 10/23/19 13:00 Urine Blood Trace (Negative) H 10/23/19 13:00 Urine Nitrite Negative (Negative) 10/23/19 13:00 Urine Bilirubin Negative (Negative) 10/23/19 13:00 Urine Urobilinogen Negative (Negative) 10/23/19 13:00 Ur Leukocyte Esterase 1+ (Negative) H 10/23/19 13:00 Urine RBC 0-4 /hpf (0-4) 10/23/19 13:00 Urine WBC >30 /hpf (0-5) H 10/23/19 13:00 Ur Epithelial Cells >30 /lpf (0-5) H 10/23/19 13:00 Urine Bacteria 1+ (Negative) H 10/23/19 13:00 Urine Yeast Budding w/ Hyphae (None Prsent) A 10/23/19 13:00 Nasal Screen MRSA (PCR) Negative (Negative) 10/23/19 18:08 Influenza Type A (PCR) Neg for Influ A (Neg) 10/23/19 13:59 Influenza Type B (PCR) Neg for Influ B (Neg) 10/23/19 13:59 Diagnostic Findings [place], [place] [phone] XRay Report Patient: MARIA ISABEL GAR Date: 10/23/19 MR#: [id number]: Janet MAYFIELD Acct ID:[id number]: [facility] Date: [address] [place] [address] Zip: [place] [address] Age: 64Location: ED Sex: F Room/Bed: Att Phy:Diagnosis: SOB Sh[facility]: [facility] Fam Phy:Interpreting Phy: Gavino Stephen MD Admit Phy: Ordering Phy: Tj Drake M.D. cc: ~ XR chest 1V portable CLINICAL HISTORY: 64 years-old Female presenting with SOB. TECHNIQUE: Portable upright AP view of the chest was obtained. COMPARISON: 10/17/2019. FINDINGS: Right subclavian Mediport terminates in the superior cavoatrial junction. Atherosclerosis of the aortic arch. Cardiac silhouette enlarged. Pulmonary vascular and interstitial prominence. Diffuse added density at the lung suggested allowing for patient body habitus. No other focal opacity. No large effusion or pneumothorax. Left shoulder arthroplasty. Advanced degenerative changes of the right glenohumeral joint. IMPRESSION: 1. Allowing for body habitus and portable technique, cardiomegaly with volume overload and congestive change. Early/developing pulmonary edema is not excluded . This is similar to prior exam. Electronically signed by: Gavino Stephen M.D. 10/23/2019 2:21 PM Dictated: 10/23/19 1419 Transcribed: 10/23/19 1419 Code Status & VTE Plan VTE Prophylaxis Plan VTE Prophylaxis will be ordered: Yes PG Care Time/CCT Total # of Minutes Spent Total Time Spent: 65 Total Time Spent with Patient: Total time spent is greater than 50% in coordination of care (as documented) at patient's floor/unit and/or counseling patient: (1) Respiratory failure with hypoxia and hypercapnia Chronicity: unspecified Qualified Code(s): J96.91 - Respiratory failure, unspecified with hypoxia; J96.92 - Respiratory failure, unspecified with hypercapnia (2) Volume overload Hypervolemia type: unspecified Qualified Code(s): E87.70 - Fluid overload, unspecified
[2019-10-23] MEDS: FUROSEMIDE 40 MG TAB PO SCH (20:17)
[2019-10-23] MEDS: METOPROLOL TARTRATE 25 MG TAB PO SCH (20:18)
[2019-10-23] MEDS: ATORVASTATIN 40 MG TAB PO SCH (20:18)
[2019-10-23] MEDS: GABAPENTIN 600 MG TAB PO SCH (20:20)
[2019-10-23] MEDS: DOCUSATE SODIUM/SENNA 50/8.6MG TAB PO SCH (20:21)
[2019-10-23] MEDS: FAMOTIDINE 20 MG TAB PO SCH (20:21)
[2019-10-23] MEDS: LEVOTHYROXINE SODIUM 112 MCG TABLET PO SCH (20:22)
[2019-10-23] MEDS: AMOXICILLIN/CLAVULANATE 875 MG TAB PO SCH (20:33)
[2019-10-23] MEDS: INSULIN ASPART 100 UNITS/ML 3 ML PEN SC SCH (20:33)
[2019-10-24] MEDS: ALBUT/IPRATROP 3MG/0.5MG NEB 3 ML VIAL NEB SCH ×4 (01:02→19:01)
[2019-10-24 06:00] LABS: Hematocrit (blood only) 30.5 % (37-47); Mean Corpuscular Hemoglobin 27.1 pg (25-34); Mean Corpuscular Hgb Conc 29.5 g/dL (32-36); Mean Corpuscular Volume 91.9 fL (80-100); Mean Platelet Volume 9.3 fL (7.4-10.4); Platelet Count 306 K/uL (130-400); RDW Coefficient of Variation 17.6 % (11.5-14.5); RDW Standard Deviation 58.8 fL (36.4-46.3); Red Blood Count 3.32 M/uL (4.2-5.4); White Blood Count 7.73 K/uL (4.8-10.8)
[2019-10-24 06:15] LABS: INR 1.3 (0.9-1.1); Prothrombin Time 13.5 Seconds (9.0-12.0)
[2019-10-24 06:38] LABS: Anion Gap 0 (3-11); BUN Creatinine Ratio 25.6 (10-20); Blood Urea Nitrogen 35 mg/dl (7-18); Carbon Dioxide 36 mmol/L (21-32); Chloride 103 mmol/L (98-107); Creatinine Clr Calc Pharmacy 60.3 ml/min; Est GFR (African American) 47.2; Est GFR (Non-African American) 40.7; Glucose 89 mg/dl (70-99); Potassium 5.2 mmol/L (3.5-5.1); Sodium 139 mmol/L (136-145)
[2019-10-24 06:43] LABS: Troponin I < 0.015 ng/ml (0-0.045)
--- NOTE | 2019-10-24 08:40 | Hospitalist Progress Note ---
Date of Service October 24, 2019 Assessment & Plan (1) Respiratory failure with hypoxia and hypercapnia: Admit PCU Continue supplemental oxygen BiPAP was ordered, but patient refused full face mask. She called to see if friend could bring hers from home to hospital. Continue Augmentin and azithromycin which is completing treatment for pneumonia DVT prophylaxis patient is on warfarin 2 mg p.o. daily for paroxysmal A. fib's. Full code (2) Volume overload: IV Lasix 40mg given in the ED In that I do not feel her CXR looked much different from previous, I simply continued her oral 40mg BID Especially in light of her renal function. She did require 2 dialysis treatments in 08/27 due to hyperkalemia in the face of fluid overload. (3) Hypothyroid: Continue levothyroxine (4) Afib: Continue warfarin INR 1.4, but patient reports that this has been trending up as she was off recently. Continue amiodarone and metoprolol. (5) DM type 2 (diabetes mellitus, type 2): Continue sitagliptin Insulin sliding scale coverage Hold metformin (6) Hypertension: Has not been issue, actually hypotensive on presentation I held lisinopril due to renal function and low bp. (7) Sleep apnea: Ok to use mask from home (8) Morbid obesity: I feel there is likely component of obesity hypoventilation syndrome. Subjective Patient seen and examined at the bedside. She feels more comfortable on 3 L of oxygen. P.o. intake is good. Patient said her shortness of breath is improving. Patient denies fever , chills ,chest pain, abdominal pain, freque ncy, urgency. Review of Systems Review of Systems: All systems reviewed & are unremarkable except as noted in HPI & below Physical Exam Constitutional: WD/WN, vitals as above well developed and + morbidly obese Eyes: PERRL, conjunctivae normal, anicteric sclerae ENMT: external ear and nose normal, oropharynx normal Respiratory: Auscultation: + crackles, + wheezes and + bronchovesicular breath sounds Cardiovascular: Heart Sounds: normal S1, normal S2 and + murmur Palpation: + palpable S3 Vessels: + JVD Extremities: + pedal edema Gastrointestinal (Abdomen): normal bowel sounds, soft, nontender, no hepatosplenomegaly Musculoskeletal: no cyanosis or clubbing, extremities motor strength 5/5 Skin: no rashes, warm and dry Neurologic: patellar DTR's 2+ bilat, sensation intact Psychiatric: A+Ox3, euthymic affect Lymphatic: no cervical or axillary lymphadenopathy Results & Data Vital Signs (Past 12 Hours) Vital Signs Temp Pulse Pulse Resp BP Pulse Ox 10/24/19 08:11 36.7 C 66 20 136/77 95 10/24/19 07:51 59 L 10/24/19 07:10 59 L 16 92 10/24/19 04:33 36.8 C 60 19 121/62 93 10/24/19 01:04 76 18 97 10/24/19 00:31 37.1 C 62 19 118/58 L 95 10/23/19 23:41 59 L PG Care Time/CCT Total # of Minutes Spent Total Time Spent with Patient: Total time spent is greater than 50% in coordination of care (as documented) at patient's floor/unit and/or counseling patient: (1) Respiratory failure with hypoxia and hypercapnia Chronicity: unspecified Qualified Code(s): J96.91 - Respiratory failure, unspecified with hypoxia; J96.92 - Respiratory failure, unspecified with hypercapnia (2) Volume overload Hypervolemia type: unspecified Qualified Code(s): E87.70 - Fluid overload, unspecified
[2019-10-24] MEDS: INSULIN ASPART 100 UNITS/ML 3 ML PEN SC SCH ×4 (09:37→21:05)
[2019-10-24] MEDS: AMOXICILLIN/CLAVULANATE 875 MG TAB PO SCH ×2 (09:45→15:49)
[2019-10-24] MEDS: DOCUSATE SODIUM/SENNA 50/8.6MG TAB PO SCH ×2 (09:45→21:04)
[2019-10-24] MEDS: FLUTICASONE/SALMETEROL 250/50 (ADVAIR) 14 PUFF/1 INHALER INH SCH ×2 (09:45→21:05)
[2019-10-24] MEDS: GABAPENTIN 600 MG TAB PO SCH ×3 (09:46→21:04)
[2019-10-24] MEDS: METOPROLOL TARTRATE 25 MG TAB PO SCH ×2 (09:46→21:04)
[2019-10-24] MEDS: MONTELUKAST SODIUM 10 MG TABLET PO SCH (09:48)
[2019-10-24] MEDS: FUROSEMIDE 40 MG TAB PO SCH ×2 (09:48→21:05)
[2019-10-24] MEDS: FAMOTIDINE 20 MG TAB PO SCH ×2 (09:48→21:04)
[2019-10-24] MEDS: AMIODARONE 200 MG TAB PO SCH ×2 (09:48→21:05)
[2019-10-24] MEDS: ASPIRIN 81 MG ECTAB PO SCH (09:48)
[2019-10-24] MEDS: CEROVITE ADV FORMULA TAB PO SCH (09:48)
[2019-10-24] MEDS: LACTOBACILLUS ACIDOPHILUS (FLORANEX) TAB PO SCH (09:49)
[2019-10-24] MEDS: SITAGLIPTIN PHOSPHATE 100 MG TAB PO SCH (09:49)
[2019-10-24] MEDS: AZITHROMYCIN 250 MG TAB PO SCH (09:49)
[2019-10-24] MEDS: MAGNESIUM OXIDE 400 MG TAB PO SCH (09:49)
[2019-10-24] MEDS: WARFARIN SOD 2 MG TAB PO SCH (15:47)
[2019-10-24] MEDS: ATORVASTATIN 40 MG TAB PO SCH (21:04)
[2019-10-24] MEDS: LEVOTHYROXINE SODIUM 112 MCG TABLET PO SCH (21:04)
[2019-10-24] MEDS: FLUTICASONE PROPIONATE NA SPR 16 GM BTL SCH (21:05)
[2019-10-25] MEDS: ALBUT/IPRATROP 3MG/0.5MG NEB 3 ML VIAL NEB SCH ×4 (01:18→19:42)
[2019-10-25 07:53] LABS: Hemoglobin 9.2 g/dL (12.0-16.0); Mean Corpuscular Hemoglobin 26.8 pg (25-34); Mean Corpuscular Hgb Conc 29.7 g/dL (32-36); Mean Corpuscular Volume 90.4 fL (80-100); Mean Platelet Volume 9.6 fL (7.4-10.4); Platelet Count 315 K/uL (130-400); RDW Coefficient of Variation 17.3 % (11.5-14.5); RDW Standard Deviation 57.5 fL (36.4-46.3); Red Blood Count 3.43 M/uL (4.2-5.4); White Blood Count 8.23 K/uL (4.8-10.8)
[2019-10-25 08:01] LABS: INR 1.2 (0.9-1.1); Prothrombin Time 12.3 Seconds (9.0-12.0)
[2019-10-25 08:23] LABS: BUN Creatinine Ratio 27.1 (10-20); Calcium 9.7 mg/dl (8.5-10.1); Creatinine Clr Calc Pharmacy 65.1 ml/min; Est GFR (African American) 51.8; Est GFR (Non-African American) 44.7; Potassium 4.5 mmol/L (3.5-5.1)
[2019-10-25] MEDS: INSULIN ASPART 100 UNITS/ML 3 ML PEN SC SCH ×4 (08:29→20:40)
[2019-10-25] MEDS: FLUTICASONE/SALMETEROL 250/50 (ADVAIR) 14 PUFF/1 INHALER INH SCH ×2 (08:29→20:29)
[2019-10-25] MEDS: CEROVITE ADV FORMULA TAB PO SCH (08:30)
[2019-10-25] MEDS: DOCUSATE SODIUM/SENNA 50/8.6MG TAB PO SCH ×2 (08:30→20:36)
[2019-10-25] MEDS: LACTOBACILLUS ACIDOPHILUS (FLORANEX) TAB PO SCH (08:30)
[2019-10-25] MEDS: MAGNESIUM OXIDE 400 MG TAB PO SCH (08:30)
[2019-10-25] MEDS: ASPIRIN 81 MG ECTAB PO SCH (08:30)
[2019-10-25] MEDS: MONTELUKAST SODIUM 10 MG TABLET PO SCH (08:30)
[2019-10-25] MEDS: AZITHROMYCIN 250 MG TAB PO SCH (08:30)
[2019-10-25] MEDS: SITAGLIPTIN PHOSPHATE 100 MG TAB PO SCH (08:30)
[2019-10-25] MEDS: GABAPENTIN 600 MG TAB PO SCH ×3 (08:30→20:31)
[2019-10-25] MEDS: FAMOTIDINE 20 MG TAB PO SCH ×2 (08:30→20:37)
[2019-10-25] MEDS: AMOXICILLIN/CLAVULANATE 875 MG TAB PO SCH ×2 (08:30→17:14)
[2019-10-25] MEDS: METOPROLOL TARTRATE 25 MG TAB PO SCH ×2 (08:30→20:31)
[2019-10-25] MEDS: FUROSEMIDE 40 MG TAB PO SCH ×2 (08:31→20:38)
[2019-10-25] MEDS: AMIODARONE 200 MG TAB PO SCH ×2 (08:31→20:36)
[2019-10-25] MEDS: OXYCODONE/ACETAMINOPHEN 5mg/325mg TAB PO PRN ×2 (08:59→20:47)
[2019-10-25] MEDS: WARFARIN SOD 2 MG TAB PO SCH (17:14)
--- NOTE | 2019-10-25 17:18 | Hospitalist Progress Note ---
Date of Service October 25, 2019 Assessment & Plan (1) Respiratory failure with hypoxia and hypercapnia: Admit PCU Continue supplemental oxygen BiPAP at night . Continued Augmentin and started linezolid since patient also have MRSA positive wound culture. Continued azithromycin which is completing treatment for pneumonia DVT prophylaxis patient is on warfarin 2 mg p.o. daily for paroxysmal A. fib's. Full code (2) Volume overload: IV Lasix 40mg given in the ED In that I do not feel her CXR looked much different from previous, I simply continued her oral 40mg BID Especially in light of her renal function. She did require 2 dialysis treatm ents in 08/27 due to hyperkalemia in the face of fluid overload. (3) Hypothyroid: Continue levothyroxine (4) Afib: Continue warfarin INR 1.4, but patient reports that this has been trending up as she was off recently. Continue amiodarone and metoprolol. (5) DM type 2 (diabetes mellitus, type 2): Continue sitagliptin Insulin sliding scale coverage Hold metformin (6) Hypertension: Has not been issue, actually hypotensive on presentation I held lisinopril due to renal function and low bp. (7) Sleep apnea: Ok to use mask from home (8) Morbid obesity: I feel there is likely component of obesity hypoventilation syndrome. (9) Acid-fast bacteria present: Patient had bronchoscopy with AFB present. We will rule out TB with 3 sputum cultures, gold QuantiFERON. Consulted infectious diseases. Airborne isolation Present on Admission?: Yes (10) Wound cellulitis: Started linezolid for MRSA positive wound culture. Consulted infectious diseases. Consulted wound Present on Admission?: Yes Subjective Patient seen and examined at the bedside. She feels more comfortable on 3 L of oxygen. P.o. intake is good. Patient said her shortness of breath is improving. Patient denies fever , chills ,chest pain, abdominal pain, frequency, urgency. Review of Systems Review of Systems: All systems reviewed & are unremarkable except as noted in HPI & below Physical Exam Constitutional: WD/WN, vitals as above well developed and + morbidly obese Eyes: PERRL, conjunctivae normal, anicteric sclerae ENMT: external ear and nose normal, oropharynx normal Respiratory: normal respiratory effort, lungs clear to auscultation Auscultation: + crackles, + wheezes and + bronchovesicular breath sounds Cardiovascular: Heart Sounds: normal S1, normal S2 and + murmur Palpation: + palpable S3 Vessels: + JVD Extremities: + pedal edema Gastrointestinal (Abdomen): normal bowel sounds, soft, nontender, no hepatosplenomegaly Musculoskeletal: no cyanosis or clubbing, extremities motor strength 5/5 Skin: no rashes, warm and dry Neurologic: patellar DTR's 2+ bilat, sensation intact Psychiatric: A+Ox3, euthymic affect Lymphatic: no cervical or axillary lymphadenopathy Results & Data Vital Signs (Past 12 Hours) Vital Signs Temp Pulse Resp BP Pulse Ox 10/25/19 15:08 36.8 C 56 L 16 120/72 92 10/25/19 13:15 104 H 18 97 10/25/19 12:06 36.9 C 60 18 149/60 H 95 10/25/19 08:06 36.7 C 65 18 158/78 H 94 10/25/19 06:54 64 18 98 PG Care Time/CCT Total # of Minutes Spent Total Time Spent with Patient: Total time spent is greater than 50% in coordination of care (as documented) at patient's floor/unit and/or counseling patient: (1) Respiratory failure with hypoxia and hypercapnia Chronicity: unspecified Qualified Code(s): J96.91 - Respiratory failure, u nspecified with hypoxia; J96.92 - Respiratory failure, unspecified with hypercapnia (2) Volume overload Hypervolemia type: unspecified Qualified Code(s): E87.70 - Fluid overload, unspecified
[2019-10-25] MEDS: FLUTICASONE PROPIONATE NA SPR 16 GM BTL SCH (20:29)
[2019-10-25] MEDS: LEVOTHYROXINE SODIUM 112 MCG TABLET PO SCH (20:31)
[2019-10-25] MEDS: ATORVASTATIN 40 MG TAB PO SCH (20:31)
[2019-10-25] MEDS: LINEZOLID 600 MG TAB PO SCH (20:38)
[2019-10-25] MEDS: ALBUTEROL 0.083% NEBU SOLN 3 ML VIAL NEB PRN (21:06)
[2019-10-26] MEDS: ALBUT/IPRATROP 3MG/0.5MG NEB 3 ML VIAL NEB SCH ×4 (01:14→18:57)
[2019-10-26] MEDS: FLUTICASONE/SALMETEROL 250/50 (ADVAIR) 14 PUFF/1 INHALER INH SCH ×2 (07:50→20:45)
[2019-10-26] MEDS: LINEZOLID 600 MG TAB PO SCH (07:51)
[2019-10-26] MEDS: FUROSEMIDE 40 MG TAB PO SCH ×2 (07:51→20:53)
[2019-10-26] MEDS: FAMOTIDINE 20 MG TAB PO SCH ×2 (07:52→20:54)
[2019-10-26] MEDS: MONTELUKAST SODIUM 10 MG TABLET PO SCH (07:52)
[2019-10-26] MEDS: AZITHROMYCIN 250 MG TAB PO SCH (07:53)
[2019-10-26] MEDS: METOPROLOL TARTRATE 25 MG TAB PO SCH ×2 (07:53→20:47)
[2019-10-26] MEDS: GABAPENTIN 600 MG TAB PO SCH ×3 (07:53→20:52)
[2019-10-26] MEDS: SITAGLIPTIN PHOSPHATE 100 MG TAB PO SCH (07:54)
[2019-10-26] MEDS: ASPIRIN 81 MG ECTAB PO SCH (07:54)
[2019-10-26] MEDS: MAGNESIUM OXIDE 400 MG TAB PO SCH (07:54)
[2019-10-26] MEDS: LACTOBACILLUS ACIDOPHILUS (FLORANEX) TAB PO SCH (07:54)
[2019-10-26] MEDS: CEROVITE ADV FORMULA TAB PO SCH (07:55)
[2019-10-26] MEDS: DOCUSATE SODIUM/SENNA 50/8.6MG TAB PO SCH ×2 (07:55→20:58)
[2019-10-26] MEDS: INSULIN ASPART 100 UNITS/ML 3 ML PEN SC SCH ×4 (07:58→20:46)
[2019-10-26 08:19] LABS: INR 1.2 (0.9-1.1); Prothrombin Time 11.7 Seconds (9.0-12.0)
[2019-10-26] MEDS: AMIODARONE 200 MG TAB PO SCH ×2 (10:20→20:49)
--- NOTE | 2019-10-26 10:25 | Infectious Disease Consult ---
Date of Consultation October 26, 2019 Assessment & Plan (1) Wound cellulitis: would suggest Imipenem and doxy for wound infection. Due to afb present would avoid zyvox for now. IGRA pending, can maintain isolation pending ID - TB vs MAC. If MAC would not suggest rx at this time. Could obtain previous ppd/IGRA results from skilled facitly as well. would give 14 days abx for wound infection and continue local wound care. would avoid quinolones due to allergy and amiodarone use. History of Present Illness Attending Physician: Kurtis Holland MD pt admitted due to sob and 11 lb weight gain over 2 days at [facility]. She was recently admitted and treated for pna with augmentin and azithro, ID did not follow. She had bronch during last admission, on 10/13, few afb noted on afb culture - resulted yesterday, now in airborne isolation, IGRA pending, she is at [facility] - previous ppd status from there unknown. sputum cultures pending. on cpap during my exam, states some difficulty breathing but denies cough, cp. n o abd pain, no n/v/d. she has wound on right leg, culture done on 10/23 growing pseudomonas and mrsa, she is on zyvox as of yesterday. afebrile. wbc 8, creat 1.2 (improving), Flu negative, CXR with edema, no infiltrate, Urine culture contaminated. blood cultures negative. She has been afebrile since admission, c/o diffuse leg pain, asking for increased pain meds. Allergies Allergy/AdvReac Type Severity Reaction Status Date / Time Iodinated Contrast Media Allergy Intermediate HIVES Verified 10/13/19 05:53 latex Allergy Unknown LOW LEVEL Verified 10/13/19 05:53 LATEX ALLERGY Quinolones Allergy Unknown DR HICKS Verified 10/13/19 05:53 ASKED THAT ALLERGY BE ADDED 07/31/08 Sulfa (Sulfonamide Allergy Unknown HIVES Verified 10/13/19 05:53 Antibiotics) vancomycin Allergy Unknown HIVES, GI Verified 10/13/19 05:53 UPSET Home Medications Home Medications Medication Instructions Recorded Confirmed Type amiodarone 200 mg PO Q12 08/02/18 10/23/19 History aspirin 81 mg PO DAILY 08/02/18 10/23/19 History atorvastatin 40 mg PO QPM 08/02/18 10/23/19 History fluticasone propion-salmeterol 1 puff INHALATION BID 08/02/18 10/23/19 History fluticasone propionate 2 spray INTRANASAL HS 08/02/18 10/23/19 History gabapentin 600 mg PO TID 08/02/18 10/23/19 History lisinopril 20 mg PO Q12 08/02/18 10/23/19 History magnesium oxide 400 mg PO QAM 08/02/18 10/23/19 History metformin 1,000 mg PO BIDM 08/02/18 10/23/19 History multivitamin with minerals 1 tab PO QAM 08/02/18 10/23/19 History [Multiple Vitamin-Minerals] sitagliptin 100 mg PO QAM 08/02/18 10/23/19 History Lactinex 1 tab PO DAILY 10/13/19 10/23/19 History albuterol sulfate [Ventolin HFA] 2 puff INHALATION Q4 PRN 10/13/19 10/23/19 History insulin lispro [Humalog U-100 1 sliding scale dose SUBCUT 10/13/19 10/23/19 History Insulin] USEASDIRECTD PRN ipratropium-albuterol 3 ml INHALATION UD PRN 10/13/19 10/23/19 History levothyroxine 112 mcg PO QPM 10/13/19 10/23/19 History metoprolol tartrate 37.5 mg PO BID 10/13/19 10/23/19 History montelukast 10 mg PO QAM 10/13/19 10/23/19 History sennosides-docusate sodium 1 tab-cap PO BID 10/13/19 10/23/19 History [Senokot-S] warfarin [Coumadin] 2 mg PO DAILY@1600 30 Days #30 tab 10/18/19 10/23/19 Rx oxycodone 5 mg PO TID PRN #10 tab 10/19/19 10/23/19 Rx amoxicillin-pot clavulanate 1 tab PO Q12H 10/23/19 10/23/19 History [Augmentin] azithromycin 250 mg PO DAILY 10/23/19 10/23/19 History furosemide [Lasix] 40 mg PO BID 10/23/19 10/23/19 History Patient History Medical History A-fib Acute and chronic respiratory failure with hypoxia Acute kidney failure Asthma (Chronic) CVA (cerebral vascular accident) (Acute) DM type 2 (diabetes mellitus, type 2) (Chronic) History of left shoulder replacement (Acute) Hypertension (Chronic) Left cervical radiculopathy (Acute) Morbid obesity with body mass index of 50 or higher (Chronic) Osteoarthritis (Chronic) Pneumonia Sleep apnea (Chronic) "on cpap" Stroke-like symptoms Surgical History Status post bilateral total hip replacement (Chronic) Family History Other Family history non-contributory Social History Preferred Language: Welsh Communication Ability: Effective Stage Electrician Required: No Beliefs That Will Affect Care: None marital status: Single Current Living Situation: Longterm Current Living Situation Comment: [facility] Other Information That Helps Us Care for You: No Feels Safe at Home: Yes Safety Concerns: Feels Safe At This Time Smoking Status: Never smoker Do You Dip or Chew Tobacco: No ; Second Hand Exposure: No ; Tobacco Cessation Education Requested by Patient: No Hx Alcohol Use: No Hx Substance Use: No Review of Systems Review of Systems: All systems reviewed & are unremarkable except as noted in HPI & below Physical Exam Constitutional: WD/WN, vitals as above Eyes: PERRL, conjunctivae normal, anicteric sclerae ENMT: external ear and nose normal, oropharynx normal Neck: normal visual inspection Respiratory: normal respiratory effort, lungs clear to auscultation Auscultation: + diminished lung sounds Cardiovascular: RRR, no murmur, no edema Extremities: + pedal edema Gastrointestinal (Abdomen): normal bowel sounds, soft, nontender, no hepatosplenomegaly Musculoskeletal: Head/Neck/Chest: + head abnormal to inspection, normocephalic and head atraumatic Skin: no rashes, warm and dry + wound (right thigh with erythema, warmth, no drainage, dressing intact) Psychiatric: A+Ox3, euthymic affect Results & Data Vital Signs (Past 12 Hours) Vital Signs Temp Pulse Pulse Pulse Resp BP Pulse Ox 10/26/19 08:00 36.7 C 56 L 16 104/57 L 98 10/26/19 07:15 53 L 20 95 10/26/19 03:36 36.8 C 59 L 19 114/64 92 10/26/19 01:14 57 L 16 96 10/25/19 23:53 36.7 C 59 L 20 138/55 L 95 10/25/19 23:40 57 L Laboratory Results Microbiology 10/24/19 14:00 Sputum, Expectorated Gram Stain - Final 10/24/19 14:00 Sputum, Expectorated Sputum Culture - Final Moderate normal maikol. 10/23/19 13:49 Blood Aerobic Blood Culture - Preliminary No growth in Aerobic bottle after 48 hours. 10/23/19 13:49 Blood Anaerobic Blood Culture - Preliminary No growth in Anaerobic bottle after 48 hours. 10/23/19 13:48 Blood Aerobic Blood Culture - Preliminary No growth in Aerobic bottle after 48 hours. 10/23/19 13:48 Blood Anaerobic Blood Culture - Preliminary No growth in Anaerobic bottle after 48 hours. 10/23/19 13:00 Urine,Clean Catch Urine Culture - Final More than three types of organisms present, all moderate counts mixed probable skin maikol. No further identifications or sensitivities to follow. 10/23/19 13:50 Leg Gram Stain - Final 10/23/19 13:50 Leg Wound Culture - Preliminary Pseudomonas aeruginosa Staph aureus MRSA PG Care Time/CCT Total # of Minutes Spent Total Time Spent with Patient: Total time spent is greater than 50% in coordination of care (as documented) at patient's floor/unit and/or counseling p atient:
[2019-10-26 11:30] LABS: Creatinine Clr Calc Pharmacy 59.4 ml/min; Est GFR (African American) 47.2; Est GFR (Non-African American) 40.7
[2019-10-26] MEDS: DOXYCYCLINE HYCLATE 100 MG CAP PO SCH ×2 (11:49→20:54)
[2019-10-26] MEDS: IMIPENEM/CILASTATIN SODIUM 400 MG in DEXTROSE 5% 100 ML IV SCH ×3 (11:49→23:40)
[2019-10-26] MEDS: OXYCODONE/ACETAMINOPHEN 5mg/325mg TAB PO PRN ×2 (13:59→20:59)
[2019-10-26] MEDS: WARFARIN SOD 2 MG TAB PO SCH (17:02)
[2019-10-26] MEDS: ALBUTEROL 0.083% NEBU SOLN 3 ML VIAL NEB PRN ×2 (17:45→22:52)
--- NOTE | 2019-10-26 18:08 | Hospitalist Progress Note ---
Date of Service October 26, 2019 Assessment & Plan (1) Respiratory failure with hypoxia and hypercapnia: Admit PCU Continue supplemental oxygen BiPAP at night . Patient infectious diseases recommendation to start imipenem and doxycycline for wound infection infection. Due to A. fib would avoid Zyvox for now E GRA pending. Maintain isolation pending IDTB versus MAC. If MAC there is no need for antibiotics at this time. Will contact residential facility for previous PPD/IGRA results. Continue antibiotics for wound infection for 14 days and local wound care. Avoid quinolones due to allergy and amiodarone use. DVT prophylaxis patient is on warfarin 2 mg p.o. daily for paroxysmal A. fib's. Full code (2) Volume overload: IV Lasix 40mg given in the ED In that I do not feel her CXR looked much different from previous, I simply continued her oral 40mg BID Especially in light of her renal function. She did require 2 dialysis treatments in 08/27 due to hyperkalemia in the face of fluid overload. (3) Hypothyroid: Continue levothyroxine (4) Afib: Continue warfarin INR 1.2, patient would need additional dose of warfarin to become therapeutic as we are speaking patient is subtherapeutic. Continue amiodarone and metoprolol. (5) DM type 2 (diabetes mellitus, type 2): Continue sitagliptin Insulin sliding scale coverage Hold metformin (6) Hypertension: Has not been issue, actually hypotensive on presentation I held lisinopril due to renal function and low bp. (7) Sleep apnea: Ok to use mask from home (8) Morbid obesity: I feel there is likely component of obesity hypoventilation syndrome. (9) Acid-fast bacteria present: Patient had bronchoscopy with AFB present. We will rule out TB with 3 sputum cultures, gold QuantiFERON. Consulted infectious diseases. Appreciate recommendations. Airborne isolation (10) Wound cellulitis: Discontinued linezolid and starting imipenem and doxycycline for MRSA positive wound culture. Consulted infectious diseases. Appreciate recommendations. Consulted wound care Subjective Patient seen and examined at the bedside. She feels more comfortable on 3 L of oxygen. P.o. intake is good. Patient said her shortness of breath is improving. Patient denies fever , chills ,chest pain, abdominal pain, frequency, urgency. Review of Systems Review of Systems: All systems reviewed & are unremarkable except as noted in HPI & below Physical Exam Constitutional: WD/WN, vitals as above well developed and + morbidly obese Eyes: PERRL, conjunctivae normal, anicteric sclerae ENMT: external ear and nose normal, oropharynx normal Respiratory: normal respiratory effort, lungs clear to auscultation Auscultation: + crackles, + wheezes and + bronchovesicular breath sounds Cardiovascular: Heart Sounds: normal S1, normal S2 and + murmur Palpation: + palpable S3 Vessels: + JVD Extremities: + pedal edema Gastrointestinal (Abdomen): normal bowel sounds, soft, nontender, no hepatosplenomegaly Musculoskeletal: no cyanosis or clubbing, extremities motor strength 5/5 Skin: no rashes, warm and dry Neurologic: patellar DTR's 2+ bilat, sensation intact Psychiatric: A+Ox3, euthymic affect Lymphatic: no cervical or axillary lymphadenopathy Results & Data Vital Signs (Past 12 Hours) Vital Signs Temp Pulse Pulse Pulse Resp BP Pulse Ox 10/26/19 17:46 59 L 20 92 10/26/19 15:50 36.6 C 51 L 16 107/68 95 10/26/19 13:47 54 L 16 94 10/26/19 12:00 36.6 C 50 L 20 122/81 97 10/26/19 08:00 36.7 C 56 L 16 104/57 L 98 10/26/19 07:30 54 L 10/26/19 07:15 53 L 20 95 PG Care Time/CCT Total # of Minutes Spent Total Time Spent with Patient: Total time spent is greater than 50% in coordination of care (as documented) at patient's floor/unit and/or counseling patient: (1) Respiratory failure with hypoxia and hypercapnia Chronicity: unspecified Qualified Code(s): J96.91 - Respiratory failure, uns pecified with hypoxia; J96.92 - Respiratory failure, unspecified with hypercapnia (2) Volume overload Hypervolemia type: unspecified Qualified Code(s): E87.70 - Fluid overload, unspecified
[2019-10-26] MEDS: FLUTICASONE PROPIONATE NA SPR 16 GM BTL SCH (20:46)
[2019-10-26] MEDS: ATORVASTATIN 40 MG TAB PO SCH (20:52)
[2019-10-26] MEDS: LEVOTHYROXINE SODIUM 112 MCG TABLET PO SCH (20:55)
[2019-10-27] MEDS: ALBUT/IPRATROP 3MG/0.5MG NEB 3 ML VIAL NEB SCH ×4 (01:16→19:35)
[2019-10-27] MEDS: IMIPENEM/CILASTATIN SODIUM 400 MG in DEXTROSE 5% 100 ML IV SCH ×3 (05:57→17:36)
[2019-10-27 08:10] LABS: Basophils # (auto) 0.03 K/uL (0-0.2); Basophils % (auto) 0.5 %; Eosinophils # (auto) 0.39 K/uL (0-0.5); Hematocrit (blood only) 32.4 % (37-47); Hemoglobin 9.5 g/dL (12.0-16.0); Immature Granulocytes # (auto) 0.02 K/uL (0.00-0.02); Immature Granulocytes % (auto) 0.3 %; Lymphocytes # (auto) 1.09 K/uL (1.2-3.4); Lymphocytes % (auto) 16.9 %; Mean Corpuscular Hemoglobin 26.9 pg (25-34); Mean Corpuscular Hgb Conc 29.3 g/dL (32-36); Mean Corpuscular Volume 91.8 fL (80-100); Mean Platelet Volume 9.2 fL (7.4-10.4); Monocytes # (auto) 0.66 K/uL (0.11-0.59); Monocytes % (auto) 10.2 %; Neutrophils # (auto) 4.27 K/uL (1.4-6.5); Neutrophils % (auto) 66.1 %; Platelet Count 320 K/uL (130-400); RDW Standard Deviation 57.5 fL (36.4-46.3); Red Blood Count 3.53 M/uL (4.2-5.4); White Blood Count 6.46 K/uL (4.8-10.8)
[2019-10-27] MEDS: INSULIN ASPART 100 UNITS/ML 3 ML PEN SC SCH ×4 (08:27→20:16)
[2019-10-27] MEDS: FLUTICASONE/SALMETEROL 250/50 (ADVAIR) 14 PUFF/1 INHALER INH SCH ×2 (08:28→20:22)
[2019-10-27] MEDS: CEROVITE ADV FORMULA TAB PO SCH (08:28)
[2019-10-27] MEDS: MAGNESIUM OXIDE 400 MG TAB PO SCH (08:29)
[2019-10-27] MEDS: METOPROLOL TARTRATE 25 MG TAB PO SCH ×2 (08:29→20:21)
[2019-10-27] MEDS: AMIODARONE 200 MG TAB PO SCH ×2 (08:30→20:19)
[2019-10-27] MEDS: ASPIRIN 81 MG ECTAB PO SCH (08:30)
[2019-10-27] MEDS: DOXYCYCLINE HYCLATE 100 MG CAP PO SCH ×2 (08:30→20:20)
[2019-10-27] MEDS: FAMOTIDINE 20 MG TAB PO SCH ×2 (08:30→20:19)
[2019-10-27] MEDS: FUROSEMIDE 40 MG TAB PO SCH ×2 (08:30→20:20)
[2019-10-27] MEDS: MONTELUKAST SODIUM 10 MG TABLET PO SCH (08:30)
[2019-10-27] MEDS: SITAGLIPTIN PHOSPHATE 100 MG TAB PO SCH (08:31)
[2019-10-27] MEDS: LACTOBACILLUS ACIDOPHILUS (FLORANEX) TAB PO SCH (08:31)
[2019-10-27] MEDS: GABAPENTIN 600 MG TAB PO SCH ×3 (08:31→20:20)
[2019-10-27 08:43] LABS: Albumin Globulin Ratio 0.7 (0.9-2); Albumin Level 2.7 gm/dl (3.4-5.0); BUN Creatinine Ratio 22.6 (10-20); Bilirubin,Total 0.4 mg/dl (0.2-1); Calcium 9.3 mg/dl (8.5-10.1); Creatinine Clr Calc Pharmacy 51.7 ml/min; Est GFR (African American) 40.9; Est GFR (Non-African American) 35.3; Globulin 4.1 gm/dl (2.5-4.0); Potassium 4.3 mmol/L (3.5-5.1); Total Protein 6.8 gm/dl (6.4-8.2)
[2019-10-27] MEDS: DOCUSATE SODIUM/SENNA 50/8.6MG TAB PO SCH ×2 (10:36→20:27)
[2019-10-27] MEDS: OXYCODONE/ACETAMINOPHEN 5mg/325mg TAB PO PRN ×2 (10:36→17:30)
[2019-10-27 13:47] LABS: Quantiferon Mitogen-NIL 2.42 IU/mL; Quantiferon NIL 0.05 IU/mL; Quantiferon TB Gold Plus NEGATIVE (NEGATIVE); Quantiferon TB2-NIL 0.01 IU/mL
--- NOTE | 2019-10-27 15:25 | Hospitalist Progress Note ---
Date of Service October 27, 2019 Assessment & Plan (1) Wound cellulitis: Right hip chronic wound which has been followed by wound care during prior hospitalizations. - Leg culture from 10/23 grew MRSA & Pseudomonas. - Discontinued linezolid and started doxycycline & imipenem/cilastatin on 10/26 for MRSA & Pseudomonas respectively. ID recommends a 14-day course (End date: 11/08/2019). - Wound care following (2) Respiratory failure with hypoxia and hypercapnia: Thought to be due to volume overload. Given Lasix 40mg IV x 1 in the ED, but then home Lasix continued. - Continue home Lasix -> On 10/27, the patient feels she is breathing very well. - Continue supplemental oxygen - CPAP HS & PRN (3) Acid-fast bacteria present: Patient had bronchoscopy on 10/13 with AFB. However, now growing MAC. Kian tionally, Quantiferon Gold test from 10/25 is also negative. - Initially concern for TB, so she was on precautions. - Stop airborne isolation - No treatment per ID (4) Volume overload: IV Lasix 40mg given in the ED. - As above (5) Hypothyroid: TSH was 5.3 on 10/13. - Continue levothyroxine (6) Afib: Patient is actually bradycardic at this point. EKG on 10/23 in normal sinus rhythm. - Continue amiodarone and metoprolol. - Continue warfarin - On 10/26, her INR was 1.2. Will increase warfarin to 3mg daily. (7) DM type 2 (diabetes mellitus, type 2): A1c was 5.5% this month. - Hold metformin - Continue sitagliptin - Insulin sliding scale coverage (8) Hypertension: BP stable at 115/70 today. Has not been issue, actually hypotensive at times. - Hold lisinopril due to renal function and low bp. (9) Sleep apnea: Home CPAP (10) Morbid obesity: Possibly a component of obesity hypoventilation syndrome. - Monitor (11) DVT prophylaxis: Warfarin for afib Subjective She is feeling quite well today. Overall, no major concerns. Her breathing has improved substantially. She is in good spirits. Reports no fevers/chills, chest pain, shortness of breath, abdominal pain, nausea, or vomiting. Physical Exam Constitutional: WD/WN, vitals as above + obese and cooperative Eyes: EOM intact bilaterally; no conjunctival abnormality ENMT: external ear and nose normal, oropharynx normal Neck: trachea midline, no thyromegaly normal visual inspection Respiratory: normal respiratory effort, lungs clear to auscultation no respiratory distress Cardiovascular: RRR, no murmur, no edema Gastrointestinal (Abdomen): Inspection/Auscultation: abdomen normal to inspection; abdomen not distended Musculoskeletal: no cyanosis or clubbing, extremities motor strength 5/5 Skin: no rashes, warm and dry Neurologic: moves all extremities and awake Psychiatric: Orientation: alert, oriented to person and cooperative Results & Data Vital Signs (Past 12 Hours) Vital Signs Temp Pulse Pulse Resp BP Pulse Ox 10/27/19 15:16 36.6 C 50 L 21 113/70 93 10/27/19 13:29 54 L 20 92 10/27/19 11:58 36.7 C 53 L 20 113/58 L 94 10/27/19 08:38 68 10/27/19 07:18 51 L 20 97 10/27/19 07:13 36.6 C 53 L 20 158/76 H 98 10/27/19 04:05 36.6 C 51 L 18 125/68 96 PG Care Time/CCT Total # of Minutes Spent Total Time Spent with Patient: Total time spent is greater than 50% in coordination of care (as documented) at patient's floor/unit and/or counseling patient: (1) Respiratory failure with hypoxia and hypercapnia Chronicity: unspecified Qualified Code(s): J96.91 - Respiratory failure, unspecified with hypoxia; J96.92 - Respiratory failure, unspecified with hypercapnia (2) Volume overload Hypervolemia type: unspecified Qualified Code(s): E87.70 - Fluid overload, unspecified
[2019-10-27] MEDS: WARFARIN SOD 3 MG TAB PO SCH (17:33)
[2019-10-27] MEDS: LEVOTHYROXINE SODIUM 112 MCG TABLET PO SCH (20:21)
[2019-10-27] MEDS: ATORVASTATIN 40 MG TAB PO SCH (20:21)
[2019-10-27] MEDS: FLUTICASONE PROPIONATE NA SPR 16 GM BTL SCH (20:22)
[2019-10-27] MEDS: IMIPENEM/CILASTATIN SODIUM 300 MG in DEXTROSE 5% 100 ML IV SCH (23:21)
[2019-10-28] MEDS: ALBUT/IPRATROP 3MG/0.5MG NEB 3 ML VIAL NEB SCH ×4 (01:10→19:02)
[2019-10-28] MEDS: ACETAMINOPHEN 325 MG TAB PO PRN (01:21)
[2019-10-28] MEDS: ALBUTEROL 0.083% NEBU SOLN 3 ML VIAL NEB PRN (03:03)
[2019-10-28] MEDS: IMIPENEM/CILASTATIN SODIUM 300 MG in DEXTROSE 5% 100 ML IV SCH ×4 (06:02→23:35)
[2019-10-28 06:42] LABS: Basophils # (auto) 0.03 K/uL (0-0.2); Basophils % (auto) 0.4 %; Eosinophils # (auto) 0.36 K/uL (0-0.5); Eosinophils % (auto) 5.3 %; Hemoglobin 9.7 g/dL (12.0-16.0); Immature Granulocytes # (auto) 0.02 K/uL (0.00-0.02); Immature Granulocytes % (auto) 0.3 %; Lymphocytes # (auto) 1.04 K/uL (1.2-3.4); Lymphocytes % (auto) 15.2 %; Mean Corpuscular Hemoglobin 27.3 pg (25-34); Mean Corpuscular Hgb Conc 30.3 g/dL (32-36); Mean Corpuscular Volume 90.1 fL (80-100); Mean Platelet Volume 9.3 fL (7.4-10.4); Monocytes # (auto) 0.56 K/uL (0.11-0.59); Monocytes % (auto) 8.2 %; Neutrophils # (auto) 4.81 K/uL (1.4-6.5); Neutrophils % (auto) 70.6 %; Platelet Count 311 K/uL (130-400); RDW Coefficient of Variation 16.9 % (11.5-14.5); RDW Standard Deviation 56.1 fL (36.4-46.3); Red Blood Count 3.55 M/uL (4.2-5.4); White Blood Count 6.82 K/uL (4.8-10.8)
[2019-10-28 06:50] LABS: INR 1.1 (0.9-1.1); Prothrombin Time 11.1 Seconds (9.0-12.0)
[2019-10-28 07:27] LABS: Albumin Globulin Ratio 0.6 (0.9-2); Albumin Level 2.5 gm/dl (3.4-5.0); BUN Creatinine Ratio 21.8 (10-20); Bilirubin,Total 0.4 mg/dl (0.2-1); Creatinine Clr Calc Pharmacy 51.2 ml/min; Est GFR (African American) 40.6; Globulin 4.1 gm/dl (2.5-4.0); Phosphorus 3.9 mg/dl (2.5-4.9); Potassium 4.6 mmol/L (3.5-5.1); Total Protein 6.6 gm/dl (6.4-8.2)
[2019-10-28] MEDS: LACTOBACILLUS ACIDOPHILUS (FLORANEX) TAB PO SCH (08:23)
[2019-10-28] MEDS: METOPROLOL TARTRATE 25 MG TAB PO SCH ×2 (08:23→20:20)
[2019-10-28] MEDS: FUROSEMIDE 40 MG TAB PO SCH ×2 (08:24→20:23)
[2019-10-28] MEDS: MONTELUKAST SODIUM 10 MG TABLET PO SCH (08:24)
[2019-10-28] MEDS: SITAGLIPTIN PHOSPHATE 100 MG TAB PO SCH (08:24)
[2019-10-28] MEDS: FAMOTIDINE 20 MG TAB PO SCH ×2 (08:24→20:21)
[2019-10-28] MEDS: CEROVITE ADV FORMULA TAB PO SCH (08:24)
[2019-10-28] MEDS: FLUTICASONE/SALMETEROL 250/50 (ADVAIR) 14 PUFF/1 INHALER INH SCH ×2 (08:24→20:19)
[2019-10-28] MEDS: GABAPENTIN 600 MG TAB PO SCH ×3 (08:24→20:20)
[2019-10-28] MEDS: DOXYCYCLINE HYCLATE 100 MG CAP PO SCH ×2 (08:24→20:22)
[2019-10-28] MEDS: ASPIRIN 81 MG ECTAB PO SCH (08:24)
[2019-10-28] MEDS: AMIODARONE 200 MG TAB PO SCH ×2 (08:25→20:23)
[2019-10-28] MEDS: MAGNESIUM OXIDE 400 MG TAB PO SCH (08:25)
[2019-10-28] MEDS: INSULIN ASPART 100 UNITS/ML 3 ML PEN SC SCH ×4 (08:25→21:32)
[2019-10-28] MEDS: DOCUSATE SODIUM/SENNA 50/8.6MG TAB PO SCH ×2 (11:13→21:32)
[2019-10-28] MEDS: WARFARIN SOD 3 MG TAB PO SCH (16:22)
[2019-10-28] MEDS: ATORVASTATIN 40 MG TAB PO SCH (20:20)
[2019-10-28] MEDS: LEVOTHYROXINE SODIUM 112 MCG TABLET PO SCH (20:21)
[2019-10-28] MEDS: FLUTICASONE PROPIONATE NA SPR 16 GM BTL SCH (20:22)
--- NOTE | 2019-10-28 22:13 | Hospitalist Progress Note ---
Date of Service October 28, 2019 Assessment & Plan (1) Wound cellulitis: Right hip chronic wound which has been followed by wound care during prior hospitalizations. - Leg culture from 10/23 grew MRSA & Pseudomonas. - Discontinued linezolid and started doxycycline & imipenem/cilastatin on 10/26 for MRSA & Pseudomonas respectively. ID recommends a 14-day course (End date: 11/08/2019). - Wound care following -placed ultrasound guided line for ptpatient antibiotics. (2) Respiratory failure with hypoxia and hypercapnia: Thought to be due to volume overload. Given Lasix 40mg IV x 1 in the ED, but then home Lasix continued. - Continue home Lasix -> On 10/28, the patient feels she is breathing very well but not at baseline. -she states she normally does not require oxygen. - Continue supplemental oxygen - CPAP HS & PRN (3) Acid-fast bacteria present: Patient had bronchoscopy on 10/13 with AFB. However, now growing MAC. Additionally, Quantiferon Gold test from 10/25 is also negative. - Initially concern for TB, so she was on precautions. - Stop airborne isolation - No treatment per ID (4) Volume overload: IV Lasix 40mg given in the ED. - As above (5) Hypothyroid: TSH was 5.3 on 10/13. - Continue levothyroxine (6) Afib: Patient is actually bradycardic at this point. EKG on 10/23 in normal sinus rhythm. - Continue amiodarone and metoprolol. - Continue warfarin - On 10/28, her INR was 1.1. Will continue warfarin to 3mg daily. (7) DM type 2 (diabetes mellitus, type 2): A1c was 5.5% this month. - Hold metformin - Continue sitagliptin - Insulin sliding scale coverage (8) Hypertension: BP stable at 115/70 today. Has not been issue, actually hypotensive at times. - Hold lisinopril due to renal function and low bp. (9) Sleep apnea: Home CPAP (10) Morbid obesity: Possibly a component of obesity hypoventilation syndrome. - Monitor (11) DVT prophylaxis: Warfarin for afib Subjective Patient is seen and examined at bedside. Patient is a pleasant 64 yo female who reports that she is not quite at her baseline. She does not feel comfortable being discharged at this time. She is concerned about having a readmission as she was only home for a couple of days before returning to the hospital.. Review of Systems Review of Systems: All systems reviewed & are unremarkable except as noted in HPI & below Physical Exam Physical Exam: Constitutional: WD/WN, vitals as above + obese and cooperative Eyes: EOM intact bilaterally; no conjunctival abnormality ENMT: external ear and nose normal, oropharynx normal Neck: trachea midline, no thyromegaly normal visual inspection Respiratory: normal respiratory effort, lungs clear to auscultation no respiratory distress Cardiovascular: RRR, no murmur, no edema Gastrointestinal (Abdomen): Inspection/Auscultation: abdomen normal to inspection; abdomen not distended Musculoskeletal: no cyanosis or clubbing, extremities motor strength 5/5 Skin: no rashes, warm and dry Neurologic: moves all extremities and awake Psychiatric: Orientation: alert, oriented to person and cooperative Results & Data Vital Signs (Past 12 Hours) Vital Signs Temp Pulse Pulse Resp BP BP Pulse Ox 10/28/19 20:17 56 L 112/69 10/28/19 19:02 52 L 20 96 10/28/19 17:11 36.6 C 56 L 20 117/73 92 10/28/19 15:33 36.8 C 57 L 16 112/69 95 10/28/19 13:55 36.8 C 54 L 61 18 116/72 93 10/28/19 11:36 36.8 C 54 L 18 116/72 93 10/28/19 11:16 36.7 C 58 L 18 137/82 96 PG Care Time/CCT Total # of Minutes Spent Total Time Spent with Patient: Total time spent is greater than 50% in coordination of care (as documented) at patient's floor/unit and/or counseling patient: (1) Respiratory failure with hypoxia and hypercapnia Chronicity: unspecified Qualified Code(s): J96.91 - Respiratory failure, unspecified with hypoxia; J96.92 - Respiratory failure, unspecified with hypercapnia (2) Volume overload Hypervolemia type: unspecified Qualified Code(s): E87.70 - Fluid overload, unspecified
[2019-10-29] MEDS: ALBUT/IPRATROP 3MG/0.5MG NEB 3 ML VIAL NEB SCH ×4 (00:47→19:04)
[2019-10-29] MEDS: IMIPENEM/CILASTATIN SODIUM 300 MG in DEXTROSE 5% 100 ML IV SCH ×4 (05:36→23:54)
[2019-10-29] MEDS: MAGNESIUM OXIDE 400 MG TAB PO SCH (06:27)
[2019-10-29] MEDS: CEROVITE ADV FORMULA TAB PO SCH (06:27)
[2019-10-29] MEDS: ACETAMINOPHEN 325 MG TAB PO PRN (06:43)
[2019-10-29 07:17] LABS: Basophils # (auto) 0.03 K/uL (0-0.2); Basophils % (auto) 0.4 %; Eosinophils # (auto) 0.32 K/uL (0-0.5); Eosinophils % (auto) 4.4 %; Hematocrit (blood only) 31.6 % (37-47); Hemoglobin 9.5 g/dL (12.0-16.0); Immature Granulocytes # (auto) 0.02 K/uL (0.00-0.02); Immature Granulocytes % (auto) 0.3 %; Lymphocytes # (auto) 1.01 K/uL (1.2-3.4); Mean Corpuscular Hemoglobin 27.1 pg (25-34); Mean Corpuscular Hgb Conc 30.1 g/dL (32-36); Mean Corpuscular Volume 90.3 fL (80-100); Monocytes # (auto) 0.52 K/uL (0.11-0.59); Monocytes % (auto) 7.2 %; Neutrophils # (auto) 5.33 K/uL (1.4-6.5); Neutrophils % (auto) 73.7 %; Platelet Count 312 K/uL (130-400); RDW Coefficient of Variation 16.8 % (11.5-14.5); RDW Standard Deviation 56.1 fL (36.4-46.3); White Blood Count 7.23 K/uL (4.8-10.8)
[2019-10-29 07:52] LABS: Albumin Level 2.5 gm/dl (3.4-5.0); BUN Creatinine Ratio 21.2 (10-20); Calcium 9.3 mg/dl (8.5-10.1); Creatinine Clr Calc Pharmacy 53.7 ml/min; Est GFR (Non-African American) 37.1; Potassium 4.1 mmol/L (3.5-5.1)
[2019-10-29 07:54] LABS: Albumin Globulin Ratio 0.6 (0.9-2); Bilirubin,Total 0.4 mg/dl (0.2-1); Globulin 4.2 gm/dl (2.5-4.0); Total Protein 6.7 gm/dl (6.4-8.2)
[2019-10-29] MEDS: METOPROLOL TARTRATE 25 MG TAB PO SCH ×2 (08:51→21:09)
[2019-10-29] MEDS: FLUTICASONE/SALMETEROL 250/50 (ADVAIR) 14 PUFF/1 INHALER INH SCH ×2 (08:51→21:05)
[2019-10-29] MEDS: FUROSEMIDE 40 MG TAB PO SCH ×2 (08:52→21:11)
[2019-10-29] MEDS: AMIODARONE 200 MG TAB PO SCH ×2 (08:52→21:11)
[2019-10-29] MEDS: ASPIRIN 81 MG ECTAB PO SCH (08:52)
[2019-10-29] MEDS: SITAGLIPTIN PHOSPHATE 100 MG TAB PO SCH (08:52)
[2019-10-29] MEDS: MONTELUKAST SODIUM 10 MG TABLET PO SCH (08:52)
[2019-10-29] MEDS: DOXYCYCLINE HYCLATE 100 MG CAP PO SCH ×2 (08:52→21:12)
[2019-10-29] MEDS: FAMOTIDINE 20 MG TAB PO SCH ×2 (08:52→21:12)
[2019-10-29] MEDS: LACTOBACILLUS ACIDOPHILUS (FLORANEX) TAB PO SCH (08:53)
[2019-10-29] MEDS: GABAPENTIN 600 MG TAB PO SCH ×3 (08:53→21:10)
[2019-10-29] MEDS: INSULIN ASPART 100 UNITS/ML 3 ML PEN SC SCH ×4 (08:55→21:13)
[2019-10-29] MEDS: OXYCODONE/ACETAMINOPHEN 5mg/325mg TAB PO PRN (08:59)
[2019-10-29] MEDS: DOCUSATE SODIUM/SENNA 50/8.6MG TAB PO SCH ×2 (11:57→21:16)
[2019-10-29 12:04] LABS: INR 1.1 (0.9-1.1); Prothrombin Time 11.2 Seconds (9.0-12.0)
--- NOTE | 2019-10-29 12:42 | Nephrology Consultation ---
Date of Consultation October 29, 2019 Assessment & Plan (1) Wound cellulitis: -- ID and wound care following -- Plan to complete a 14 day course of doxycycline and imipenem/cilastatin (end date: 11/08/2019) -- Appropriate for PICC placement per nephrology (2) Volume overload: Improving with furosemide 40 mg twice daily. Continue to document I/O as inpatient. Unclear etiology. Suspect obesity, KHALIDA, pulmonary hypertension, and kidney dysfunction are major contributing factors. (3) Afib: Anticoagulated with warfarin. Remains bradycardic on amiodarone and metoprolol. A dose reduction of amiodarone may be of consideration at this time but I will defer to cardiology. (4) DM type 2 (diabetes mellitus, type 2): A1c was well below goal. Metformin has been held due to history of DIANNE. (5) Hypertension: Lisinopril held on admission due to elevated creatinine/history of DIANEN and relative hypotension. Would continue to hold for now with monitoring. (6) Sleep apnea: CPAP. (7) Morbid obesity: Patient has been chronically bedbound which is certainly contributing to fluid retention and complicating her respiratory status. (8) Acute kidney failure: Creatinine has been relatively stable at 1.3 mg/dL. I suspect this is consistent with the patient's baseline kidney function. She remains hypervolemic and I would continue diuretics as Rx'd with additional as needed to encourage a negative fluid balance. Dietary sodium and fluid restrictions were reviewed. Electrolytes are otherwise appropriate. She did not have proteinuria based on prior assessment. Medications are appropriately dosed for kidney function. Again, I would add a consideration to dose reduction of amiodarone but defer to her underwriting support manager. Overall, I suspect at this time she is approaching stability for outpatient management. Nephrology will continue to follow while inpatient and arrange close outpatient follow up once she is discharged. History of Present Illness Reason for Consultation: Chronic kidney disease, volume overload Requesting Physician: Sea Benedict Attending Physician: Sea Benedict History of Present Illness Rekha Khanna is morbidly obese 64-year-old female with chronic kidney disease. She has a complicated history of kidney dysfunction and significant fluid retention. Rekha required emergency dialysis during a recent hospitalization at [facility] for DIANNE, volume overload, and hyperkalemia. She was admitted to [facility] from October 13 to . She presented with respiratory distress. Evaluation was notable for pulmonary edema. The patient had acute kidney injury with a serum creatinine of 2.77 milligrams/deciliter. Prior baseline creatinine had been approximately 1.1 milligram/deciliter. The patient was hyperkalemic with acute EKG changes. Respiratory status decompensated quickly during her hospitalization requiring emergent endotracheal intubation shortly after admission. In the ICU, while on ventilator support, she required a short course of vasopressor support while dialysis. During intubation there was evidence of aspiration, including edematous vocal cords and aspirated food seen. She received dialysis treatments on hospital day 1 and 2. She tolerated aggressive ultrafiltration during treatment and then had renal recovery. Serum creatinine improved to baseline. During hospitalization the patient was treated for pneumonia, initially with Rocephin and azithromycin which was later switched to cefepime. It appears that course of treatment was completed during the hospitalization. She was extubated on hospital day 2 and had appropriate recovery of her respiratory status. Transthoracic echocardiogram demonstrated normal left ventricular systolic function. The patient's right ventricular systolic pressure was elevated at 40 to 50 millimeters hg. She not have significant valvular heart disease. She was discharged from the hospital to [facility]. At the time of discharge she was placed on furosemide 40 milligrams twice daily. Speech language pathologist evaluation found that Rekha was able to tolerate thin liquids with appropriate aspiration precautions. Unfortunately after a couple of days out of the hospital patient developed significant fluid retention. It is noted that she had 11 pound weight gain within a 48 hour period. She was then readmitted to [facility]. Thankfully, since admission her respiratory status has been improving with furosemide 40 milligrams twice daily. She has a net effective diuresis. At the time my assessment today, she felt she was doing very well. Her kidney function has been relatively stable with a creatinine of 1.3-1.4. Electrolytes are appropriate. She is being treated for a soft tissue infection involving her right leg. Leg culture from 10/23 grew MRSA & Pseudomonas. ID recommended a 24 day course of doxycycline and imipenem/cilastatin. Medical history is notable for hypothyroidism, obstructive sleep apnea, CVA, asthma, morbid obesity, diabetes mellitus, history of atrial fibrillation. Patient was admitted to [facility] in July of 2018 with a right fibula fracture following a fall. Allergies Allergy/AdvReac Type Severity Reaction Status Date / Time Iodinated Contrast Media Allergy Intermediate HIVES Verified 10/13/19 05:53 latex Allergy Unknown LOW LEVEL Verified 10/13/19 05:53 LATEX ALLERGY Quinolones Allergy Unknown DR HICKS Verified 10/13/19 05:53 ASKED THAT ALLERGY BE ADDED 07/31/08 Sulfa (Sulfonamide Allergy Unknown HIVES Verified 10/13/19 05:53 Antibiotics) vancomycin Allergy Unknown HIVES, GI Verified 10/13/19 05:53 UPSET Home Medications Home Medications Medication Instructions Recorded Confirmed Type amiodarone 200 mg PO Q12 08/02/18 10/23/19 History aspirin 81 mg PO DAILY 08/02/18 10/23/19 History atorvastatin 40 mg PO QPM 08/02/18 10/23/19 History fluticasone propion-salmeterol 1 puff INHALATION BID 08/02/18 10/23/19 History fluticasone propionate 2 spray INTRANASAL HS 08/02/18 10/23/19 History gabapentin 600 mg PO TID 08/02/18 10/23/19 History magnesium oxide 400 mg PO QAM 08/02/18 10/23/19 History metformin 1,000 mg PO BIDM 08/02/18 10/23/19 History multivitamin with minerals 1 tab PO QAM 08/02/18 10/23/19 History [Multiple Vitamin-Minerals] sitagliptin 100 mg PO QAM 08/02/18 10/23/19 History Lactinex 1 tab PO DAILY 10/13/19 10/23/19 History albuterol sulfate [Ventolin HFA] 2 puff INHALATION Q4 PRN 10/13/19 10/23/19 History insulin lispro [Humalog U-100 1 sliding scale dose SUBCUT 10/13/19 10/23/19 History Insulin] USEASDIRECTD PRN ipratropium-albuterol 3 ml INHALATION UD PRN 10/13/19 10/23/19 History levothyroxine 112 mcg PO QPM 10/13/19 10/23/19 History metoprolol tartrate 37.5 mg PO BID 10/13/19 10/23/19 History montelukast 10 mg PO QAM 10/13/19 10/23/19 History sennosides-docusate sodium 1 tab-cap PO BID 10/13/19 10/23/19 History [Senokot-S] oxycodone 5 mg PO TID PRN #10 tab 10/19/19 10/23/19 Rx furosemide [Lasix] 40 mg PO BID 10/23/19 10/23/19 History doxycycline hyclate 100 mg PO BID #23 cap 10/28/19 Rx imipenem-cilastatin 300 mg IV Q6H #47 ea 10/28/19 Rx warfarin [Coumadin] 3 mg PO DAILY@1600 #30 tab 10/28/19 Rx Patient History Medical History A-fib Acute and chronic respiratory failure with hypoxia Acute kidney failure Asthma (Chronic) CVA (cerebral vascular accident) (Acute) DM type 2 (diabetes mellitus, type 2) (Chronic) History of left shoulder replacement (Acute) Hypertension (Chronic) Left cervical radiculopathy (Acute) Morbid obesity with body mass index of 50 or higher (Chronic) Osteoarthritis (Chronic) Pneumonia Sleep apnea (Chronic) "on cpap" Stroke-like symptoms Surgical History Status post bilateral total hip replacement (Chronic) Family History Other Family history non-contributory Social History Preferred Language: Italian Communication Ability: Effective Pet Technologist Required: No Beliefs That Will Affect Care: None marital status: Single Current Living Situation: [facility] Current Living Situation Comment: [facility] Other Information That Helps Us Care for You: No Feels Safe at Home: Yes Safety Concerns: Feels Safe At This Time Smoking Status: Never smoker Do You Dip or Chew Tobacco: No ; Second Hand Exposure: No ; Tobacco Cessation Education Requested by Patient: No Hx Alcohol Use: No Hx Substance Use: No Review of Systems Review of Systems: All systems reviewed & are unremarkable except as noted in HPI & below Physical Exam Constitutional: well developed and + morbidly obese; no acute distress Eyes: no scleral abnormality and no corneal abnormality ENMT: Mouth: no oral mucosal abnormality and oral mucous membranes not dry Neck: normal visual inspection, trachea midline and + thick neck Respiratory: normal respiratory effort Auscultation: lungs clear to auscultation bilaterally and + diminished lung sounds Cardiovascular: Rate/Rhythm: + bradycardic Heart Sounds: normal S1 and normal S2 Extremities: + edema Musculoskeletal: Extremities: no cyanosis and no clubbing Skin: normal turgor; no lesions Neurologic: Motor/Sensory: no tremor and no asterixis Psychiatric: Orientation: alert and oriented x 3 Results & Data Vital Signs (Past 12 Hours) Vital Signs Temp Pulse Resp BP Pulse Ox 10/29/19 07:29 36.9 C 52 L 20 123/56 L 94 10/29/19 07:07 58 L 18 97 10/29/19 00:50 56 L 18 92 Laboratory Results Laboratory Results - last 24 hr 10/28/19 10/28/19 10/29/19 16:17 20:50 07:05 WBC 7.23 RBC 3.50 L Hgb 9.5 L Hct 31.6 L MCV 90.3 MCH 27.1 MCHC 30.1 L RDW Std Deviation 56.1 H RDW Coeff of Mehnaz 16.8 H Plt Count 312 MPV 9.0 Immature Gran % (Auto) 0.3 Neut % (Auto) 73.7 Lymph % (Auto) 14.0 [place] % (Auto) 7.2 Eos % (Auto) 4.4 Baso % (Auto) 0.4 Immature Gran # (Auto) 0.02 Neut # (Auto) 5.33 Lymph # (Auto) 1.01 L [place] # (Auto) 0.52 Eos # (Auto) 0.32 Baso # (Auto) 0.03 PT INR Sodium Potassium Chloride Carbon Dioxide Anion Gap BUN Creatinine Est Cr Clr Drug Dosing Est GFR ( Amer) Est GFR (Non-Af Amer) BUN/Creatinine Ratio Glucose POC Glucose 180 H 154 H Calcium Total Bilirubin AST ALT Alkaline Phosphatase Total Protein Albumin Globulin Albumin/Globulin Ratio 10/29/19 10/29/19 10/29/19 07:05 08:10 11:29 WBC RBC Hgb Hct MCV MCH MCHC RDW Std Deviation RDW Coeff of Mehnaz Plt Count MPV Immature Gran % (Auto) Neut % (Auto) Lymph % (Auto) [place] % (Auto) Eos % (Auto) Baso % (Auto) Immature Gran # (Auto) Neut # (Auto) Lymph # (Auto) [place] # (Auto) Eos # (Auto) Baso # (Auto) PT 11.2 INR 1.1 Sodium 136 Potassium 4.1 Chloride 95 L Carbon Dioxide 39 H Anion Gap 2.0 L BUN 31 H Creatinine 1.47 H Est Cr Clr Drug Dosing 53.7 Est GFR ( Amer) 43.0 Est GFR (Non-Af Amer) 37.1 BUN/Creatinine Ratio 21.2 H Glucose 146 H POC Glucose 144 H Calcium 9.3 Total Bilirubin 0.4 AST 17 ALT 21 Alkaline Phosphatase 90 Total Protein 6.7 Albumin 2.5 L Globulin 4.2 H Albumin/Globulin Ratio 0.6 L 10/29/19 12:12 WBC RBC Hgb Hct MCV MCH MCHC RDW Std Deviation RDW Coeff of Mehnaz Plt Count MPV Immature Gran % (Auto) Neut % (Auto) Lymph % (Auto) [place] % (Auto) Eos % (Auto) Baso % (Auto) Immature Gran # (Auto) Neut # (Auto) Lymph # (Auto) [place] # (Auto) Eos # (Auto) Baso # (Auto) PT INR Sodium Potassium Chloride Carbon Dioxide Anion Gap BUN Creatinine Est Cr Clr Drug Dosing Est GFR ( Amer) Est GFR (Non-Af Amer) BUN/Creatinine Ratio Glucose POC Glucose 139 H Calcium Total Bilirubin AST ALT Alkaline Phosphatase Total Protein Albumin Globulin Albumin/Globulin Ratio PG Care Time/CCT Total # of Minutes Spent Total Time Spent with Patient: Total time spent is greater than 50% in coordination of care (as documented) at patient's floor/unit and/or counseling patient: (1) Volume overload Hypervolemia type: unspecified Qualified Code(s): E87.70 - Fluid overload, unspecified (2) Acute kidney failure Acute renal failure type: unspecified Qualified Code(s): N17.9 - Acute kidney failure, unspecified
--- NOTE | 2019-10-29 12:51 | XRay Report ---
XR chest 1V portable CLINICAL HISTORY: 64 years-old Female presenting with sob. TECHNIQUE: Portable upright AP view of the chest was obtained. COMPARISON: 10/23/2019. FINDINGS: Right subclavian Mediport terminates at the superior cavoatrial junction. Atherosclerosis of the aort ic arch. Cardiac silhouette moderately enlarged. Pulmonary vascular prominence is similar to prior ex am. Interstitial prominence also similar to prior. Bandlike opacities at the left lung base may be sl ightly increased from prior. No other focal opacity. No large effusion or pneumothorax. Degenerative changes of the thoracic spine. Left shoulder arthroplasty. Degenerative changes of the right glenohum eral joint. Upper abdomen normal. IMPRESSION: 1. Left basilar atelectasis or scarring suspected, possibly increased from prior. 2. Cardiomegaly with mild volume overload and congestive change similar to prior exam. 3. No focal infiltrate to suggest pneumonia. ACT 112: Negative or not required by law. Electronically signed by: Gavino Stephen M.D. 10/29/2019 12:49 PM
[2019-10-29] MEDS: WARFARIN SOD 3 MG TAB PO SCH (16:37)
[2019-10-29] MEDS: FLUTICASONE PROPIONATE NA SPR 16 GM BTL SCH (21:06)
[2019-10-29] MEDS: LEVOTHYROXINE SODIUM 112 MCG TABLET PO SCH (21:10)
[2019-10-29] MEDS: ATORVASTATIN 40 MG TAB PO SCH (21:10)
--- NOTE | 2019-10-29 22:28 | Hospitalist Progress Note ---
Date of Service October 29, 2019 Assessment & Plan (1) Wound cellulitis: Right hip chronic wound which has been followed by wound care during prior hospitalizations. - Leg culture from 10/23 grew MRSA & Pseudomonas. - Discontinued linezolid and started doxycycline & imipenem/cilastatin on 10/26 for MRSA & Pseudomonas respectively. ID recommends a 14-day course (End date: 11/08/2019). - Wound care following -placed ultrasound guided line for outpatient antibiotics. (2) Respiratory failure with hypoxia and hypercapnia: Thought to be due to volume overload. Given Lasix 40mg IV x 1 in the ED, but then home Lasix continued. - Continue home Lasix -> On 10/28, the patient feels she is breathing very well but not at baseline. -she states she normally does not require oxygen. - Continue supplemental oxygen - CPAP HS & PRN -will continue to diurese patient. (3) Acid-fast bacteria present: Patient had bronchoscopy on 10/13 with AFB. However, now growing MAC. Additionally, Quantiferon Gold test from 10/25 is also negative. - Initially concern for TB, so she was on precautions. - Stop airborne isolation - No treatment per ID (4) Volume overload: IV Lasix 40mg given in the ED. - As above (5) Hypothyroid: TSH was 5.3 on 10/13. - Continue levothyroxine (6) Afib: Patient is actually bradycardic at this point. EKG on 10/23 in normal sinus rhythm. - Continue amiodarone and metoprolol. - Continue warfarin - On 10/28, her INR was 1.1. Will continue warfarin to 3mg daily. (7) DM type 2 (diabetes mellitus, type 2): A1c was 5.5% this month. - Hold metformin - Continue sitagliptin - Insulin sliding scale coverage (8) Hypertension: BP stable at 115/70 today. Has not been issue, actually hypotensive at times. - Hold lisinopril due to renal function and low bp. (9) Sleep apnea: Home CPAP (10) Morbid obesity: Possibly a component of obesity hypoventilation syndrome. - Monitor (11) DVT prophylaxis: Warfarin for afib Subjective Patient reports she is breathing somewhat better today. She has coughed up clear sputum. She denies any new complaints Review of Systems Review of Systems: All systems reviewed & are unremarkable except as noted in HPI & below Physical Exam Physical Exam: Constitutional: WD/WN, vitals as above + obese and cooperative Eyes: EOM intact bilaterally; no conjunctival abnormality ENMT: external ear and nose normal, oropharynx normal Neck: trachea midline, no thyromegaly normal visual inspection Respiratory: normal respiratory effort, lungs are wheezing. no respiratory distress Cardiovascular: RRR, no murmur, no edema Gastrointestinal (Abdomen): Inspection/Auscultation: abdomen normal to inspection; abdomen not distended Musculoskeletal: no cyanosis or clubbing, extremities motor strength 5/5 Skin: no rashes, warm and dry Neurologic: moves all extremities and awake Psychiatric: Orientation: alert, oriented to person and cooperative Results & Data Vital Signs (Past 12 Hours) Vital Signs Temp Pulse Resp BP Pulse Ox 10/29/19 19:04 57 L 16 97 10/29/19 15:57 36.8 C 54 L 20 94/51 L 92 10/29/19 13:44 94 H 18 93 PG Care Time/CCT Total # of Minutes Spent Total Time Spent with Patient: Total time spent is greater than 50% in coordination of care (as documented) at patient's floor/unit and/or counseling patient: (1) Respiratory failure with hypoxia and hypercapnia Chronicity: unspecified Qualified Code(s): J96.91 - Respiratory failure, unspecified with hypoxia; J96.92 - Respiratory failure, unspecified with hypercapnia (2) Volume overload Hypervolemia type: unspecified Qualified Code(s): E87.70 - Fluid overload, unspecified
[2019-10-30] MEDS: ALBUT/IPRATROP 3MG/0.5MG NEB 3 ML VIAL NEB SCH ×4 (00:43→19:22)
[2019-10-30] MEDS: ACETAMINOPHEN 325 MG TAB PO PRN (03:41)
[2019-10-30] MEDS: IMIPENEM/CILASTATIN SODIUM 300 MG in DEXTROSE 5% 100 ML IV SCH ×4 (05:17→23:39)
[2019-10-30] MEDS: CEROVITE ADV FORMULA TAB PO SCH (06:35)
[2019-10-30] MEDS: MAGNESIUM OXIDE 400 MG TAB PO SCH (06:35)
[2019-10-30] MEDS: DOCUSATE SODIUM/SENNA 50/8.6MG TAB PO SCH ×2 (07:42→19:57)
[2019-10-30] MEDS: FAMOTIDINE 20 MG TAB PO SCH ×2 (07:42→20:04)
[2019-10-30] MEDS: DOXYCYCLINE HYCLATE 100 MG CAP PO SCH ×2 (07:42→20:02)
[2019-10-30] MEDS: MONTELUKAST SODIUM 10 MG TABLET PO SCH (07:42)
[2019-10-30] MEDS: GABAPENTIN 600 MG TAB PO SCH ×3 (07:43→20:04)
[2019-10-30] MEDS: FUROSEMIDE 40 MG TAB PO SCH ×2 (07:43→20:04)
[2019-10-30] MEDS: SITAGLIPTIN PHOSPHATE 100 MG TAB PO SCH (07:43)
[2019-10-30] MEDS: ASPIRIN 81 MG ECTAB PO SCH (07:43)
[2019-10-30] MEDS: METOPROLOL TARTRATE 25 MG TAB PO SCH ×2 (07:43→20:05)
[2019-10-30] MEDS: LACTOBACILLUS ACIDOPHILUS (FLORANEX) TAB PO SCH (07:43)
[2019-10-30] MEDS: AMIODARONE 200 MG TAB PO SCH ×2 (07:44→20:02)
[2019-10-30] MEDS: FLUTICASONE/SALMETEROL 250/50 (ADVAIR) 14 PUFF/1 INHALER INH SCH ×2 (07:45→20:03)
[2019-10-30] MEDS: INSULIN ASPART 100 UNITS/ML 3 ML PEN SC SCH ×4 (08:25→20:12)
[2019-10-30 10:03] LABS: Hemoglobin 10.3 g/dL (12.0-16.0)
[2019-10-30 10:16] LABS: Albumin Level 2.7 gm/dl (3.4-5.0); BUN Creatinine Ratio 21.7 (10-20); Calcium 9.6 mg/dl (8.5-10.1); Creatinine Clr Calc Pharmacy 49.6 ml/min; Est GFR (African American) 38.8; Est GFR (Non-African American) 33.5; Phosphorus 4.3 mg/dl (2.5-4.9); Potassium 4.1 mmol/L (3.5-5.1)
--- NOTE | 2019-10-30 11:43 | Nephrology Progress Note ---
Date of Service October 30, 2019 Assessment & Plan (1) Wound cellulitis: -- ID and wound care following -- Plan to complete a 14 day course of doxycycline and imipenem/cilastatin (end date: 11/08/2019) (2) Volume overload: -- Improving with furosemide 40 mg twice daily. -- Continue to document I/O as inpatient. -- Suspect obesity, KHALIDA, pulmonary hypertension, and kidney dysfunction are major contributing factors. (3) Afib: -- Anticoagulated with warfarin. -- Remains bradycardic on amiodarone and metoprolol. -- Consider a dose reduction of amiodarone to 100 or 200 mg daily. (4) DM type 2 (diabetes mellitus, type 2): -- A1c was well below goal. Metformin has been held due to history of DIANNE. (5) Hypertension: -- Lisinopril held due to elevated creatinine/history of DIANNE and relative hypotension. -- Would continue to hold for now with monitoring. (6) Sleep apnea: -- CPAP. (7) Morbid obesity: -- Patient has been chronically bedbound which is certainly contributing to fluid retention and complicating her respiratory status. (8) Acute kidney failure: -- Creatinine remains relatively stable at 1.3 mg/dL. I suspect this is consistent with the patient's baseline kidney function. -- She remains hypervolemic and I would continue diuretics as Rx'd with additional as needed to encourage a negative fluid balance. -- Dietary sodium and fluid restrictions were reviewed. -- Electrolytes are normal. -- She did not have proteinuria based on prior assessment. -- Medications are appropriately dosed for kidney function. Consider adjusting amiodarone dosing as tolerated. Subjective No acute events overnight. Breathing has significantly improved. Rekha feels she is returning to her baseline. She anticipates discharge back to [facility] today or tomorrow. No fevers or chills. Appetite fair. Review of Systems Review of Systems: All systems reviewed & are unremarkable except as noted in HPI & below Physical Exam Constitutional: well developed and + morbidly obese; no acute distress Eyes: no scleral abnormality and no corneal abnormality ENMT: Mouth: no oral mucosal abnormality and oral mucous membranes not dry Neck: normal visual inspection, trachea midline and + thick neck Respiratory: normal respiratory effort Auscultation: lungs clear to auscultation bilaterally and + diminished lung sounds Cardiovascular: Rate/Rhythm: + bradycardic Heart Sounds: normal S1 and normal S2 Extremities: + edema Musculoskeletal: Extremities: no cyanosis and no clubbing Skin: normal turgor; no lesions Neurologic: Motor/Sensory: no tremor and no asterixis Psychiatric: Orientation: alert and oriented x 3 Results & Data Vital Signs (Past 12 Hours) Vital Signs Temp Pulse Resp BP Pulse Ox 10/30/19 07:27 36.9 C 53 L 20 136/73 100 10/30/19 07:05 53 L 18 94 10/30/19 00:45 54 L 14 91 Laboratory Results Laboratory Results - last 24 hr 10/29/19 10/29/19 10/29/19 11:29 12:12 16:48 Hgb Hct PT 11.2 INR 1.1 Sodium Potassium Chloride Carbon Dioxide Anion Gap BUN Creatinine Est Cr Clr Drug Dosing Est GFR ( Amer) Est GFR (Non-Af Amer) BUN/Creatinine Ratio Glucose POC Glucose 139 H 160 H Calcium Phosphorus Albumin 10/29/19 10/30/19 10/30/19 19:52 08:00 09:34 Hgb 10.3 L Hct 34.0 L PT INR Sodium Potassium Chloride Carbon Dioxide Anion Gap BUN Creatinine Est Cr Clr Drug Dosing Est GFR ( Amer) Est GFR (Non-Af Amer) BUN/Creatinine Ratio Glucose POC Glucose 194 H 142 H Calcium Phosphorus Albumin 10/30/19 10/30/19 09:34 11:35 Hgb Hct PT INR Sodium 137 Potassium 4.1 Chloride 96 L Carbon Dioxide 38 H Anion Gap 3.0 BUN 35 H Creatinine 1.60 H Est Cr Clr Drug Dosing 49.6 Est GFR ( Amer) 38.8 Est GFR (Non-Af Amer) 33.5 BUN/Creatinine Ratio 21.7 H Glucose 134 H POC Glucose 161 H Calcium 9.6 Phosphorus 4.3 Albumin 2.7 L PG Care Time/CCT Total # of Minutes Spent Total Time Spent with Patient: Total time spent is greater than 50% in coordination of care (as documented) at patient's floor/unit and/or counseling patient: (1) Volume overload Hypervolemia type: unspecified Qualified Code(s): E87.70 - Fluid overload, unspecified (2) Acute kidney failure Acute renal failure type: unspecified Qualified Code(s): N17.9 - Acute kidney failure, unspecified
[2019-10-30] MEDS: WARFARIN SOD 3 MG TAB PO SCH (16:12)
[2019-10-30] MEDS: FLUTICASONE PROPIONATE NA SPR 16 GM BTL SCH (20:03)
[2019-10-30] MEDS: ATORVASTATIN 40 MG TAB PO SCH (20:03)
[2019-10-30] MEDS: LEVOTHYROXINE SODIUM 112 MCG TABLET PO SCH (20:05)
--- NOTE | 2019-10-30 21:21 | Hospitalist Progress Note ---
Date of Service October 30, 2019 Assessment & Plan (1) Wound cellulitis: Right hip chronic wound which has been followed by wound care during prior hospitalizations. - Leg culture from 10/23 grew MRSA & Pseudomonas. - Discontinued linezolid and started doxycycline & imipenem/cilastatin on 10/26 for MRSA & Pseudomonas respectively. ID recommends a 14-day course (End date: 11/08/2019). - Wound care following -placed ultrasound guided line for outpatient antibiotics. (2) Respiratory failure with hypoxia and hypercapnia: Thought to be due to volume overload. Given Lasix 40mg IV x 1 in the ED, but then home Lasix continued. - Continue home Lasix -> On 10/30, the patient feels she is breathing very well but not at baseline. -she states she normally does not require oxygen. - Continue supplemental oxygen -Ordered flutter valve as patient is coughing up sputum. - CPAP HS & PRN -will continue to diurese patient. (3) Acid-fast bacteria present: Patient had bronchoscopy on 10/13 with AFB. However, now growing MAC. Additionally, Quantiferon Gold test from 10/25 is also negative. - Initially concern for TB, so she was on precautions. - Stop airborne isolation - No treatment per ID (4) Volume overload: IV Lasix 40mg given in the ED. - As above (5) Hypothyroid: TSH was 5.3 on 10/13. - Continue levothyroxine (6) Afib: Patient is actually bradycardic at this point. EKG on 10/23 in normal sinus rhythm. - Continue amiodarone and metoprolol. - Continue warfarin - On 10/28, her INR was 1.1. Will continue warfarin to 3mg daily. will check on 10/31 (7) DM type 2 (diabetes mellitus, type 2): A1c was 5.5% this month. - Hold metformin - Continue sitagliptin - Insulin sliding scale coverage (8) Hypertension: BP stable at 115/70 today. Has not been issue, actually hypotensive at times. - Hold lisinopril due to renal function and low bp. (9) Sleep apnea: Home CPAP (10) Morbid obesity: Possibly a component of obesity hypoventilation syndrome. - Monitor (11) DVT prophylaxis: Warfarin for afib Subjective Patient reports mild improvement from breathing yesterdaay. Still feels SOB at not at baseline. Still having productive cough. Review of Systems Review of Systems: All systems reviewed & are unremarkable except as noted in HPI & below Physical Exam Physical Exam: Constitutional: well developed and + morbidly obese; no acute distress Eyes: no scleral abnormality and no corneal abnormality ENMT: Mouth: no oral mucosal abnormality and oral mucous membranes not dry Neck: normal visual inspection, trachea midline and + thick neck Respiratory: normal respiratory effort Auscultation: Wheezing b/l and + diminished lung sounds Cardiovascular: Rate/Rhythm: + bradycardic Heart Sounds: normal S1 and normal S2 Extremities: + edema Musculoskeletal: Extremities: no cyanosis and no clubbing Skin: normal turgor; no lesions Neurologic: Motor/Sensory: no tremor and no asterixis Psychiatric: Orientation: alert and oriented x 3 Results & Data Vital Signs (Past 12 Hours) Vital Signs Temp Pulse Pulse Pulse Resp BP BP 10/30/19 21:07 55 L 92/58 L 10/30/19 19:22 82 18 10/30/19 15:33 36.9 C 60 18 102/63 10/30/19 13:03 61 18 Pulse Ox 10/30/19 21:07 10/30/19 19:22 96 10/30/19 15:33 92 10/30/19 13:03 90 PG Care Time/CCT Total # of Minutes Spent Total Time Spent with Patient: Total time spent is greater than 50% in coordination of care (as documented) at patient's floor/unit and/or counseling patient: (1) Respiratory failure with hypoxia and hypercapnia Chronicity: unspecified Qualified Code(s): J96.91 - Respiratory failure, unspecified with hypoxia; J96.92 - Respiratory failure, unspecified with hypercapnia (2) Volume overload Hypervolemia type: unspecified Qualified Code(s): E87.70 - Fluid overload, u nspecified
[2019-10-31] MEDS: ALBUT/IPRATROP 3MG/0.5MG NEB 3 ML VIAL NEB SCH ×4 (01:22→19:18)
[2019-10-31] MEDS: IMIPENEM/CILASTATIN SODIUM 300 MG in DEXTROSE 5% 100 ML IV SCH ×4 (05:11→22:48)
[2019-10-31] MEDS: MAGNESIUM OXIDE 400 MG TAB PO SCH (06:14)
[2019-10-31] MEDS: CEROVITE ADV FORMULA TAB PO SCH (06:15)
[2019-10-31 07:44] LABS: INR 1.1 (0.9-1.1)
[2019-10-31 08:03] LABS: BUN Creatinine Ratio 24.6 (10-20); Calcium 9.4 mg/dl (8.5-10.1); Creatinine Clr Calc Pharmacy 50.5 ml/min; Est GFR (African American) 39.7; Est GFR (Non-African American) 34.2; Potassium 4.4 mmol/L (3.5-5.1)
[2019-10-31] MEDS: LACTOBACILLUS ACIDOPHILUS (FLORANEX) TAB PO SCH (08:43)
[2019-10-31] MEDS: METOPROLOL TARTRATE 25 MG TAB PO SCH ×2 (08:43→20:14)
[2019-10-31] MEDS: FUROSEMIDE 40 MG TAB PO SCH ×2 (08:43→20:13)
[2019-10-31] MEDS: AMIODARONE 200 MG TAB PO SCH ×2 (08:43→20:17)
[2019-10-31] MEDS: DOXYCYCLINE HYCLATE 100 MG CAP PO SCH ×2 (08:43→20:16)
[2019-10-31] MEDS: DOCUSATE SODIUM/SENNA 50/8.6MG TAB PO SCH ×2 (08:43→20:17)
[2019-10-31] MEDS: GABAPENTIN 600 MG TAB PO SCH ×3 (08:43→20:15)
[2019-10-31] MEDS: FAMOTIDINE 20 MG TAB PO SCH ×2 (08:43→20:17)
[2019-10-31] MEDS: SITAGLIPTIN PHOSPHATE 100 MG TAB PO SCH (08:43)
[2019-10-31] MEDS: ASPIRIN 81 MG ECTAB PO SCH (08:43)
[2019-10-31] MEDS: FLUTICASONE/SALMETEROL 250/50 (ADVAIR) 14 PUFF/1 INHALER INH SCH ×2 (08:44→20:12)
[2019-10-31] MEDS: MONTELUKAST SODIUM 10 MG TABLET PO SCH (08:44)
[2019-10-31] MEDS: INSULIN ASPART 100 UNITS/ML 3 ML PEN SC SCH ×4 (08:44→20:18)
--- NOTE | 2019-10-31 09:35 | Nephrology Progress Note ---
Date of Service October 31, 2019 Assessment & Plan (1) Acute kidney failure: 64-year-old female admitted with shortne of breath with 15 pound weight gain, pneumonia and leg cellulitis with MRSA and Pseudomonas. Recently had acute kidney injury when she was admitted 2 weeks ago requiring emergency dialysis for hyperkalemia and volume overload. Renal function rapidly improved after 2 dialysis treatment and creatinine stayed around 1.3-1.4 with prior normal kidney function with creatinine 1.0 before dialysis requiring acute kidney injury. Creatinine has been staying around 1.4-1.6 over last few days. Electrolyte has been acceptable. She did not have proteinuria based on prior assessment. Blood pressure well controlled. Lisinopril held due to elevated creatinine/history of DIANNE and relative hypotension. Volume status Improving with furosemide 40 mg twice daily with slightly net negative. Suspect obesity, KHALIDA, pulmonary hypertension, and kidney dysfunction are major contributing factors for SOB. -- Continue to document I/O as inpatient. -- would continue diuretics as Rx'd with additional as needed to encourage a negative fluid balance. Her volume status seems to have improved significantly, if she remains in negative balance consider lowering Lasix to 40 milligram daily on discharge --Consider a dose reduction of amiodarone to 100 mg daily as she remains bradycardic -- Medications are appropriately dosed for kidney function. -- Plan to complete a 14 day course of doxycycline and imipenem/cilastatin (end date: 11/08/2019) -- Anticoagulated with warfarin. Will sign off (2) Wound cellulitis: (3) Volume overload: (4) Afib: (5) Hypertension: (6) Morbid obesity: Juan Da Silva was seen and examined in her room this morning. She overall feels better and shortness of breath improved although still having some cough. No fever or chills. Blood pressure has been well controlled. Review of Systems Review of Systems: All systems reviewed & are unremarkable except as noted in HPI & below Physical Exam Constitutional: + morbidly obese; no acute distress Respiratory: no respiratory distress Auscultation: + diminished lung sounds and + crackles Cardiovascular: Rate/Rhythm: regular rate, regular rhythm and + bradycardic Extremities: no edema Neurologic: moves all extremities and awake; not confused Psychiatric: A+Ox3, euthymic affect Results & Data Vital Signs (Past 12 Hours) Vital Signs Temp Pulse Resp BP Pulse Ox 10/31/19 07:07 36.7 C 50 L 18 137/80 99 10/31/19 07:01 52 L 16 96 10/31/19 01:22 57 L 16 93 10/30/19 22:58 36.4 C L 52 L 18 99/63 L 94 PG Care Time/CCT Total # of Minutes Spent Total Time Spent with Patient: Total time spent is greater than 50% in coordination of care (as documented) at patient's floor/unit and/or counseling patient: (1) Acute kidney failure Acute renal failure type: unspecified Qualified Code(s): N17.9 - Acute kidney failure, unspecified (2) Volume overload Hypervolemia type: unspecified Qualified Code(s): E87.70 - Fluid overload, unspecified
[2019-10-31] MEDS: WARFARIN SOD 3 MG TAB PO SCH (16:44)
[2019-10-31] MEDS: ACETAMINOPHEN 325 MG TAB PO PRN (17:27)
[2019-10-31] MEDS: ATORVASTATIN 40 MG TAB PO SCH (20:14)
[2019-10-31] MEDS: FLUTICASONE PROPIONATE NA SPR 16 GM BTL SCH (20:14)
[2019-10-31] MEDS: LEVOTHYROXINE SODIUM 112 MCG TABLET PO SCH (20:16)
--- NOTE | 2019-10-31 21:30 | Hospitalist Progress Note ---
Date of Service October 31, 2019 Assessment & Plan (1) Respiratory failure with hypoxia and hypercapnia: Multifactorial - possible volume overload on admission and given additional IV lasix although now back on home doses. Suspect multifactorial after recovering from recent ICU admission. No concern from prior providers for asthma exacerbation and no current wheezing on exam. ?exacerbated but cellulitis (none currently on exam but diagnosed by infectious disease for this). Suspect partly from obesity hypoventilation and obstructive sleep apnea. She was setup to be discharged today but since I am unclear of her baseline and patient is still concerned about her breathing will observe overnight. (2) Wound cellulitis: Right hip chronic wound which has been followed by wound care during prior hospitalizations. - Leg culture from 10/23 grew MRSA & Pseudomonas. - Discontinued linezolid and started doxycycline & imipenem/cilastatin on 10/26 for MRSA & Pseudomonas respectively. ID recommends a 14-day course (End date: 11/08/2019). - Wound care following -placed ultrasound guided line for outpatient antibiotics. (3) Acid-fast bacteria present: Patient had bronchoscopy on 10/13 with AFB. However, now growing MAC. Additionally, Quantiferon Gold test from 10/25 is also negative. - Initially concern for TB, so she was on precautions. - Stop airborne isolation - No treatment per ID (4) Volume overload: IV Lasix 40mg given in the ED. - As above (5) Hypothyroid: TSH was 5.3 on 10/13 in setting of severe illnes - Continue levothyroxine (6) DM type 2 (diabetes mellitus, type 2): A1c was 5.5% this month. - Hold metformin - Continue sitagliptin - Insulin sliding scale coverage (7) Hypertension: BP stable at 115/70 today. Has not been issue, actually hypotensive at times. - Hold lisinopril due to renal function and low bp. (8) Sleep apnea: Continue home CPAP (9) Morbid obesity: Possibly a component of obesity hypoventilation syndrome. - Monitor (10) Paroxysmal atrial fibrillation: atrial flutter/fib episodes during possible stroke like episode in 06/2018. No follow up with cardiology as per patient and she has remained on amiodarone 400mg total daily since then. Will reduce to 200mg daily and highly recommend cardiology follow up with Dr Carmona if not already arranged. Warfarin recommended at that time due to morbid obesity. (11) DVT prophylaxis: Warfarin for afib. Subtherapeutic INR. Will uptitrate warfarin doses as needed. Subjective Patient lying in bed. Apparently wheelchair bound since prior leg fractures. She reports not feeling ready to go back to [facility] as her breathing not at her baseline. Unclear cause of current exacerbation and she feels it is due to her asthma which gets worse at [facility] although this has not been treated with steroids here. She has had multiple readmissions recently which started with ICU admission for acute hypoxic hypercapnic respiratory failure on 10/13/2019 Physical Exam Constitutional: well developed, + morbidly obese and cooperative Eyes: no conjunctival abnormality ENMT: external ear and nose normal, oropharynx normal Neck: normal visual inspection and trachea midline Respiratory: normal respiratory effort; no respiratory distress Auscultation: + diminished lung sounds (quiet due to body habitus); no crackles and no wheezes Cardiovascular: Rate/Rhythm: regular rate and regular rhythm Heart Sounds: normal S1, normal S2 and + murmur Extremities: + pedal edema Gastrointestinal (Abdomen): Inspection/Auscultation: abdomen normal to inspection (large body habitus); abdomen not distended Percussion/Palpation: abdomen soft; abdomen nontender Musculoskeletal: Head/Neck/Chest: normocephalic and head atraumatic Skin: right hip wound with scaling, no collection, draining or surrounding cellulitis Neurologic: moves all extremities (limited due to body habitus and recent fractures) and awake; not confused Psychiatric: Orientation: alert, oriented x 3 and cooperative Results & Data Vital Signs (Past 12 Hours) Vital Signs Temp Pulse Pulse Resp BP Pulse Ox 10/31/19 19:21 80 20 89 L 10/31/19 16:41 60 101/56 L 10/31/19 15:06 37.0 C 67 18 86/52 L 93 10/31/19 13:40 60 18 94 PG Care Time/CCT Total # of Minutes Spent Total Time Spent with Patient: Total time spent is greater than 50% in coordination of care (as documented) at patient's floor/unit and/or counseling patient: (1) Sleep apnea Sleep apnea type: obstructive Qualified Code(s): G47.33 - Obstructive sleep apnea (adult) (pediatric) (2) Hypothyroid Hypothyroidism type: unspecified Qualified Code(s): E03.9 - Hypothyroidism, unspecified (3) Respiratory failure with hypoxia and hypercapnia Chronicity: unspecified Qualified Code(s): J96.91 - Respiratory failure, unspecified with hypoxia; J96.92 - Respiratory failure, unspecified with hypercapnia (4) Hypertension Hypertension type: essential hypertension Qualified Code(s): I10 - Essential (primary) hypertension (5) Volume overload Hypervolemia type: unspecified Qualified Code(s): E87.70 - Fluid overload, unspecified
[2019-10-31] MEDS ORDERED: WARFARIN SOD 10 MG TAB PO ONE (21:45)
[2019-11-01] MEDS: ALBUT/IPRATROP 3MG/0.5MG NEB 3 ML VIAL NEB SCH ×3 (00:15→13:03)
[2019-11-01] MEDS: FLUTICASONE/SALMETEROL 250/50 (ADVAIR) 14 PUFF/1 INHALER INH SCH (07:55)
[2019-11-01] MEDS: IMIPENEM/CILASTATIN SODIUM 300 MG in DEXTROSE 5% 100 ML IV SCH ×2 (07:55→11:13)
[2019-11-01] MEDS: MONTELUKAST SODIUM 10 MG TABLET PO SCH (07:56)
[2019-11-01] MEDS: FAMOTIDINE 20 MG TAB PO SCH (07:56)
[2019-11-01] MEDS: DOXYCYCLINE HYCLATE 100 MG CAP PO SCH (07:56)
[2019-11-01] MEDS: LACTOBACILLUS ACIDOPHILUS (FLORANEX) TAB PO SCH (07:57)
[2019-11-01] MEDS: GABAPENTIN 600 MG TAB PO SCH ×2 (07:57→12:59)
[2019-11-01] MEDS: DOCUSATE SODIUM/SENNA 50/8.6MG TAB PO SCH (07:57)
[2019-11-01] MEDS: SITAGLIPTIN PHOSPHATE 100 MG TAB PO SCH (07:58)
[2019-11-01] MEDS: METOPROLOL TARTRATE 25 MG TAB PO SCH (07:58)
[2019-11-01] MEDS: ASPIRIN 81 MG ECTAB PO SCH (07:58)
[2019-11-01] MEDS: MAGNESIUM OXIDE 400 MG TAB PO SCH (07:58)
[2019-11-01] MEDS: FUROSEMIDE 40 MG TAB PO SCH (07:58)
[2019-11-01] MEDS: CEROVITE ADV FORMULA TAB PO SCH (07:58)
[2019-11-01] MEDS ORDERED: METFORMIN HCL ER 500 MG TABCR PO SCH (08:00)
[2019-11-01 08:28] LABS: BUN Creatinine Ratio 27.9 (10-20); Calcium 9.6 mg/dl (8.5-10.1); Creatinine Clr Calc Pharmacy 52.8 ml/min; Est GFR (African American) 41.9; Est GFR (Non-African American) 36.2; Potassium 4.4 mmol/L (3.5-5.1)
[2019-11-01] MEDS: INSULIN ASPART 100 UNITS/ML 3 ML PEN SC SCH ×2 (08:56→12:59)
[2019-11-01] MEDS ORDERED: AMIODARONE 200 MG TAB PO SCH (09:00)
[2019-11-01] MEDS: ACETAMINOPHEN 325 MG TAB PO PRN (13:03)
[2019-11-01 14:20] LABS: INR 1.1 (0.9-1.1); Prothrombin Time 11.2 Seconds (9.0-12.0)
--- NOTE | 2019-11-01 14:35 | Discharge Summary ---
Date of Service November 01, 2019 Admission HPI Per Admitting Provider 64 y/o female presented to the ED from [facility] with 2 day history of increasing SOB. Nursing at [facility] reported an 11 lbs weight gain over 48 hours. The patient tells me that her chest felt tight. She has a chronic intermittent cough of which there has been no change. She normally uses oxygen prn, but recently using around the clock. She is continuing Augmentin and azithromycin for a recent pneumonia. No N/V/D, diaphoresis, syncope, or dizziness. She reports having a wound over her right hip. Primary Care Provider: [facility] Admission Exam Per Admitting Provider General- adult female, NAD Head- atraumatic Eyes- PERRL, EOMI, anicteric ENT- oropharynx clear Neck- supple, no JVD, no adenopathy, no thyromegaly. Lungs- Decreased breath sounds at the bases with few crackles in the lower fraser. Heart- regular rhythm; no murmur, no gallop, no rub appreciated Abdomen- normal bowel sounds, soft, nontender. Extremities- + 2 pitting edema b/l lower ext. no calf tenderness. 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 Skin- warm & dry Principal Diagnosis Acute on chronic hypoxic respiratory failure Discharge Exam Constitutional well developed, + morbidly obese and cooperative Eyes no conjunctival abnormality ENMT external ear and nose normal, oropharynx normal Neck normal visual inspection and trachea midline Respiratory normal respiratory effort; no respiratory distress Auscultation: + diminished lung sounds (quiet due to body habitus); no crackles and no wheezes Cardiovascular Rate/Rhythm: regular rate and regular rhythm Heart Sounds: normal S1, normal S2 and + murmur Extremities: + pedal edema Gastrointestinal (Abdomen) Inspection/Auscultation: abdomen normal to inspection (large body habitus); abdomen not distended Percussion/Palpation: abdomen soft; abdomen nontender Musculoskeletal Head/Neck/Chest: normocephalic and head atraumatic Skin no rashes, warm and dry Neurologic moves all extremities (limited due to body habitus and recent fractures) and awake; not confused Psychiatric Orientation: alert, oriented x 3 and cooperative Discharge Data Allergies Allergy/AdvReac Type Severity Reaction Status Date / Time Iodinated Contrast Media Allergy Intermediate HIVES Verified 11/03/19 13:27 latex Allergy Unknown LOW LEVEL Verified 11/03/19 13:27 LATEX ALLERGY Quinolones Allergy Unknown DR HICKS Verified 11/03/19 13:27 ASKED THAT ALLERGY BE ADDED 07/31/08 Sulfa (Sulfonamide Allergy Unknown HIVES Verified 11/03/19 13:27 Antibiotics) vancomycin Allergy Unknown HIVES, GI Verified 11/03/19 13:27 UPSET Consultations 10/23/19 15:51 ED Decision to Admit Stat 10/25/19 16:26 Consult Infectious Diseases Routine 10/28/19 15:40 Consult Nephrology Routine Hospital Course (1) Respiratory failure with hypoxia and hypercapnia: Rekha Khanna is a 64 year old female admitted to [facility] from October 23 to 2018 due to shortness of breath, increased oxygen requirement and increased weight gain at [facility]. Likely deterioration was multifactorial including mild asthma exacerbation (did not r equire steroids but treated with nebulizers), atelectasis, recent pneumonia, obesity hypoventilation, KHALIDA, possible mild volume overload, iatrogenic low blood pressure and bradycardia, lower extremity cellulitis surrounding chronic right hip ulcer. She is now back to 2L O2 which I suspect is her new baseline after recent ICU admission requiring intubation. Wound cellulitis - leg culture from 10/23 grew MRSA and pseudomonas. Recommended Rx with imipenem and doxycycline as prescribed (end date 11/08/2019) with wound clinic follow up. Volume overload: appears relatively euvolemic with stable Cr on lasix 40mg PO BID. Only had IV dosing once during admission. Recommend follow up with [facility] nephrology within the next 4 week if not previously arranged T2DM - metformin and sitagliptin reduced to reflect new baseline renal function. Paroxysmal atrial fibrillation/flutter - recommend [facility] cardiology follow up (previously seen by Dr Carmona during hospitalization in 2018 but unclear if followed up since). Metoprolol and amiodarone have been decreased due to ongoing bradycardia. INR - supratherapeutic during last admission therefore slowly restarted. No change in INR with 3 mg daily therefore given 10mg dose on 10/31 and will be continued on 5mg daily at discharge, please repeat INR in 2-3 days. (of note amiodarone has been reduced therefore may need increased dosing from before and may need reduced dosing when she comes off doxycyline. CKD stage 3 - reviewed by nephrology and recommend contintuin off lisinopril. Continue on lasix 40mg BID to maintain fluid balance. KHALIDA - continue home CPAP. (2) Wound cellulitis: (3) Acid-fast bacteria present: (4) Volume overload: (5) Hypothyroid: (6) DM type 2 (diabetes mellitus, type 2): (7) Hypertension: (8) Sleep apnea: (9) Morbid obesity: (10) Paroxysmal atrial fibrillation: Total Time Total Time Spent Total Time Spent (In Minutes): 55 Total Time Includes: Examination of the Patient, Discharge Planning and Medication Reconciliation Discharge Plan Discharge Items Patient Disposition: Transfer Residential Fac Reason For Visit: ACUTE ON CHRONIC RESPIRATORY FAILURE Discharge Diagnosis: Acute on chronic hypoxic respiratory failure Activity: Resume your previous activity Non-emergency contact: Primary Care Provider Call non-emergency contact if: you have any medication questions Follow-up/Referrals: Ovett,[place] [Primary Care Provider] - Diet: Carb Consistent or DM2, Heart Healthy and Low Sodium (2gm) Addtl Attending Provider Instructions: Rekha Khanna is a 64 year old female admitted to [facility] from October 23 to 2018 due to shortness of breath, increased oxygen requirement and increased weight gain at [facility]. Likely deterioration was multifactorial including mild asthma exacerbation (did not require steroids but treated with nebulizers), atelectasis, recent pneumonia, obesity hypoventilation, KHALIDA, possible mild volume overload, iatrogenic low blood pressure and bradycardia, lower extremity cellulitis surrounding chronic right hip ulcer. She is now back to 2L O2 which I suspect is her new baseline after recent ICU admission requiring intubation. Wound cellulitis - leg culture from 10/23 grew MRSA and pseudomonas. Recommended Rx with imipenem and doxycycline as prescribed (end date 11/08/2019) with wound clinic follow up. Volume overload: appears relatively euvolemic with stable Cr on lasix 40mg PO BID. Only had IV dosing once during admission. Recommend follow up with [facility] nephrology within the next 4 week if not previously arranged T2DM - metformin and sitagliptin reduced to reflect new baseline renal function. Paroxysmal atrial fibrillation/flutter - recommend [facility] cardiology follow up (previously seen by Dr Carmona during hospitalization in 2018 but unclear if followed up since). Metoprolol and amiodarone have been decreased due to ongoing bradycardia. INR - supratherapeutic during last admission therefore slowly restarted. No change in INR with 3 mg daily therefore given 10mg dose on 10/31 and will be continued on 5mg daily at discharge, please repeat INR in 2-3 days. (of note amiodarone has been reduced therefore may need increased dosing from before and may need reduced dosing when she comes off doxycyline. CKD stage 3 - reviewed by nephrology and recommend contintuin off lisinopril. Continue on lasix 40mg BID to maintain fluid balance. KHALIDA - continue home CPAP. Pending Studies at Discharge: No Stand-Alone Forms: My [facility] Skilled Items Patient informed of condition?: Yes DNR: No Discharge Level of Care: Skilled Communicable Disease: Yes (MRSA wound infection) Discharge Prognosis: Stable Lines: US Guided Peripheral IV Urinary Catheter: No Medications and DC Order Prescriptions: New sitagliptin 50 mg tablet 50 mg PO DAILY Qty: 30 RF: 0 metformin 500 mg tablet extended release 24 hr 500 mg PO BID Qty: 60 RF: 0 metoprolol tartrate 25 mg tablet 25 mg PO BID Qty: 60 RF: 0 warfarin 5 mg tablet 5 mg PO DAILY Qty: 30 RF: 0 Continued fluticasone propion-salmeterol 250-50 mcg/dose blister with device 1 puff Inhalation BID RF: 0 gabapentin 600 mg tablet 600 mg PO TID RF: 0 fluticasone propionate 50 mcg/actuation spray,suspension 2 spray Intranasal HS RF: 0 atorvastatin 40 mg tablet 40 mg PO QPM RF: 0 aspirin 81 mg Tablet,Delayed Release (Dr/Ec) 81 mg PO DAILY RF: 0 magnesium oxide 400 mg (241.3 mg magnesium) Tablet 400 mg PO QAM RF: 0 multivitamin with minerals [Multiple Vitamin-Minerals] Tablet 1 tab PO QAM RF: 0 furosemide [Lasix] 40 mg tablet 40 mg PO BID RF: 0 levothyroxine 112 mcg tablet 112 mcg PO QPM RF: 0 Lactinex 1 million cell Tablet,Chewable 1 tab PO DAILY RF: 0 montelukast 10 mg Tablet 10 mg PO QAM RF: 0 sennosides-docusate sodium [Senokot-S] 8.6-50 mg Tablet 1 tab-cap PO BID RF: 0 albuterol sulfate [Ventolin HFA] 90 mcg/actuation HFA aerosol inhaler 2 puff INHALATION Q4 PRN (Reason: Shortness Of Breath Or Wheezing) RF: 0 ipratropium-albuterol 0.5 mg-3 mg(2.5 mg base)/3 mL Solution For Nebulization 3 ml INHALATION UD PRN (Reason: Shortness Of Breath Or Wheezing) RF: 0 insulin lispro [Humalog U-100 Insulin] 100 unit/mL Solution 1 sliding scale dose SUBCUT USEASDIRECTD PRN (Reason: elevated bs) RF: 0 oxycodone 5 mg tablet 5 mg PO TID PRN (Reason: pain) Qty: 10 RF: 0 Changed amiodarone 200 mg tablet 200 mg PO DAILY Qty: 0 RF: 0 Discontinued metformin 1,000 mg tablet 1,000 mg PO BIDM RF: 0 lisinopril 20 mg tablet 20 mg PO Q12 RF: 0 sitagliptin 100 mg tablet 100 mg PO QAM RF: 0 amoxicillin-pot clavulanate [Augmentin] 875-125 mg Tablet 1 tab PO Q12H RF: 0 azithromycin 250 mg Tablet 250 mg PO DAILY RF: 0 metoprolol tartrate 25 mg Tablet 37.5 mg PO BID RF: 0 warfarin [Coumadin] 2 mg Tablet 2 mg PO DAILY@1600 30 Days Qty: 30 RF: 0 Discharge Orders: Discharge Order (Routine); Ordered 11/01/19 Ordered By: Arnoldo Ruffin/Other Patient Handouts: Infec MRSA Admission Data Admit Date/Time: 10/23/19 16:25 Attending Provider: Arnoldo Camp Admit Provider: Ke Barnett Primary Care Provider: Briseida Killian Other Providers: Rahul Shipman ; Ke Barnett ; Ansley French ; Troy Pineda Other Interventions: Discharge Summary Assessment (RN) Last Done: 11/01/19 14:35 DC Date/Time DO NOT enter until pt leaves facility: 11/01/19 15:06
== END 2019-11-01 15:06 | DRG 189 ==
LOC: ED 12:25 → 2S 16:25 → SUATTDRO 16:25 → 2S 17:35 → 4W 10-28 15:41

== ENCOUNTER 2019-11-18 06:30 | Inpatient (IN) ==
[2019-11-18] MEDS ORDERED: SODIUM CHLORIDE 0.9% 500 ML IV ONE (06:39)
[2019-11-18 06:55] LABS: Basophils # (auto) 0.02 K/uL (0-0.2); Basophils % (auto) 0.2 %; Hematocrit (blood only) 31.7 % (37-47); Hemoglobin 9.9 g/dL (12.0-16.0); Immature Granulocytes # (auto) 0.02 K/uL (0.00-0.02); Immature Granulocytes % (auto) 0.2 %; Lymphocytes # (auto) 0.44 K/uL (1.2-3.4); Lymphocytes % (auto) 4.3 %; Mean Corpuscular Hemoglobin 27.3 pg (25-34); Mean Corpuscular Hgb Conc 31.2 g/dL (32-36); Mean Corpuscular Volume 87.3 fL (80-100); Monocytes # (auto) 0.76 K/uL (0.11-0.59); Monocytes % (auto) 7.5 %; Neutrophils % (auto) 86.8 %; Platelet Count 197 K/uL (130-400); RDW Coefficient of Variation 16.4 % (11.5-14.5); RDW Standard Deviation 52.8 fL (36.4-46.3); Red Blood Count 3.63 M/uL (4.2-5.4); White Blood Count 10.14 K/uL (4.8-10.8)
--- NOTE | 2019-11-18 07:06 | Emergency Department Note ---
Entered by Iam Murguia acting as a scribe for History of Present Illness General Chief complaint: Fever Stated complaint: FEVER Time Seen by Provider: 11/18/19 06:33 Source: patient History of Present Illness Provider complaint: Fever Onset (ago): hour(s) 3 Location: head Pain Consistency: + constant Current Pain Intensity: 4 Relieved By: + none Associated symptoms: + cough, + fever/chills and + shortness of breath; no nausea/vomiting The patient is a 64 year old female who presents to the Emergency Room with complaints of a constant fever that started about 3 hours ago. The patient also woke up short of breath with an O2 sat in the 80s on RA and a cough. The patient endorses a headache that she rates a 4/10 in severity. 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 She notes that she follows with wound clinic and had a biopsy done yesterday. The patient had her flu shot this year. The patient has a history of asthma and wears 2L at baseline. Home Medications Home Medications Medication Instructions Recorded Confirmed Type aspirin 81 mg PO DAILY 08/02/18 11/18/19 History atorvastatin 40 mg PO HS 08/02/18 11/18/19 History fluticasone propionate 2 spray INTRANASAL HS 08/02/18 11/18/19 History gabapentin 600 mg PO TID 08/02/18 11/18/19 History magnesium oxide 400 mg PO QAM 08/02/18 11/18/19 History multivitamin with minerals 1 tab PO QAM 08/02/18 11/18/19 History [Multiple Vitamin-Minerals] Lactinex 1 tab PO DAILY 10/13/19 11/18/19 History albuterol sulfate [Ventolin HFA] 2 puff INHALATION Q4 PRN 10/13/19 11/18/19 History insulin lispro [Humalog U-100 1 sliding scale dose SUBCUT 10/13/19 11/18/19 Hist ory Insulin] USEASDIRECTD PRN ipratropium-albuterol 3 ml INHALATION UD PRN 10/13/19 11/18/19 History levothyroxine 112 mcg PO QPM 10/13/19 11/18/19 History montelukast 10 mg PO QAM 10/13/19 11/18/19 History sennosides-docusate sodium 1 tab-cap PO BID 10/13/19 11/18/19 History [Senokot-S] oxycodone 5 mg PO TID PRN #10 tab 10/19/19 11/18/19 Rx furosemide [Lasix] 40 mg PO BID 10/23/19 11/18/19 History metformin 500 mg PO BID #60 tab 11/01/19 11/18/19 Rx metoprolol tartrate 25 mg PO BID #60 tab 11/01/19 11/18/19 Rx sitagliptin 50 mg PO DAILY #30 tab 11/01/19 11/18/19 Rx warfarin 5 mg PO DAILY #30 tab 11/01/19 11/18/19 Rx acetaminophen 650 mg PO Q6H PRN 11/18/19 11/18/19 History amiodarone 200 mg PO QAM 11/18/19 11/18/19 History fluticasone propion-salmeterol 1 inh INHALATION BID 11/18/19 11/18/19 History [Advair Diskus] furosemide 20 mg PO DAILY PRN 11/18/19 11/18/19 History Allergies Allergy/AdvReac Type Severity Reaction Status Date / Time Iodinated Contrast Media Allergy Intermediate HIVES Verified 11/18/19 07:39 latex Allergy Unknown LOW LEVEL Verified 11/18/19 07:39 LATEX ALLERGY Quinolones Allergy Unknown DR HICKS Verified 11/18/19 07:39 ASKED THAT ALLERGY BE ADDED 07/31/08 Sulfa (Sulfonamide Allergy Unknown HIVES Verified 11/18/19 07:39 Antibiotics) vancomycin Allergy Unknown HIVES, GI Verified 11/18/19 07:39 UPSET Past Med/Surg History Medical History A-fib Acute and chronic respiratory failure with hypoxia Acute kidney failure Anemia Asthma (Chronic) CHF exacerbation (Acute) Chronic joint pain (Acute) CVA (cerebral vascular accident) (Acute) DM type 2 (diabetes mellitus, type 2) (Chronic) History of left shoulder replacement (Acute) Hypertension (Chronic) Hypothyroid Left cervical radiculopathy (Acute) Morbid obesity with body mass index of 50 or higher (Chronic) Osteoarthritis (Chronic) Pneumonia Respiratory failure with hypoxia and hypercapnia (Acute) Sleep apnea (Chronic) "on cpap" Stroke-like symptoms Volume overload (Acute) Wound cellulitis Surgical History Status post bilateral total hip replacement (Chronic) Family History Other Family history non-contributory Social History Preferred Language: Vietnamese Communication Ability: Effective Can Sealer Required: No Beliefs That Will Affect Care: None marital status: Single Current Living Situation: Prison Current Living Situation Comment: [facility] Other Information That Helps Us Care for You: No Feels Safe at Home: Yes Safety Concerns: Feels Safe At This Time Smoking Status: Never smoker Second Hand Exposure: No ; Hx Alcohol Use: No Hx Substance Use: No Review of Systems See HPI for pertinent positives & negatives. and A total of 10 systems reviewed and were otherwise negative Physical Exam Vital Signs Vital Signs - 24 hr 11/18/19 06:31 11/18/19 06:43 11/18/19 07:40 Temperature 37.8 C H Temperature Source Oral Pulse Rate 78 76 Pulse Rate [Apical] 68 Respiratory Rate 24 20 Respiratory Effort / Characteristics Non-Labored Spontaneous Respiratory Depth Normal Normal Blood Pressure 102/58 L Blood Pressure [Right Arm] 120/59 L Blood Pressure Mean 72 Blood Pressure Mean [Right Arm] 79 Pulse Oximetry 85 L 91 96 Oxygen Delivery Method Room Air Nasal Cannula Room Air Oxygen Flow Rate 2 Sepsis Recent Fever Within 48 Hours Yes Sepsis Action Taken by Nursing Physician Notified General: Non-ill appearing older female in no acute distress. Oxygen sat in the high 80s on RA HEENT: Normal cephalic atraumatic. Pupils are equal round and reactive to light. Extraocular movements are intact. Oropharynx is pink with moist mucous membranes. No swelling of the mouth lips or tongue. Neck: Supple with a midline trachea. No meningeal signs or stiffness, no JVD or bruits. No Stridor. Chest: Clear to auscultation bilaterally. No wheezes or rhonchi. No increased work of breathing. Heart: regular rate and rhythm. Abdomen: Soft nontender, nondistended without rebound guarding or rigidity. Extremities: No cyanosis clubbing or edema. No calf tenderness or asymmetry. Wound on right hip with packing in it, no drainage. Mild pink discoloration. Spine/Back. Non tender to palpation. No CVA tenderness Skin: Good turgor without rashes. Neurologic exam: Cranial nerves two through 12 are intact. Motor and sensation are intact and symmetrical throughout. Course Course 0634: Past medical records reviewed. The patient was evaluated in room A10, and a complete history and physical examination were performed. 0710: I reevaluated the patient and she is resting comfortably. 0833: I spoke to Dr. Lavelle Farnsworth [facility] Hospitalist about the patient's case and he is going to accept her for further evaluation. Consultations Consultation #1: I spoke to Dr. Lavelle Farnsworth [facility] Hospitalist about the patient's case and he is going to accept her for further evaluation. Time: 08:33 Administered Medications Amiodarone HCl (Cordarone) 200 mg PO QAM [facility] Stop: 12/18/19 10:14 Last Admin: 11/18/19 12:00 Dose: 200 mg Documented by: [id number] Gabapentin (Neurontin) 600 mg PO TID [facility] Stop: 12/18/19 10:14 Last Admin: 11/18/19 14:20 Dose: Not Given Documented by: [id number] Admin: 11/18/19 12:01 Dose: 600 mg Documented by: [id number] Insulin Aspart (Novolog Flexpen) 0 units SC ACHS [facility] Stop: 12/18/19 11:29 Last Admin: 11/18/19 12:53 Dose: 7 units Documented by: [id number] Cosigned by: [id number] Lactobacillus Acidophilus (Floranex) 4 tab PO DAILY [facility] Stop: 12/18/19 10:14 Last Admin: 11/18/19 12:00 Dose: 4 tab Documented by: [id number] Magnesium Oxide (Mag-Ox) 400 mg PO QAM [facility] Stop: 12/18/19 10:14 Last Admin: 11/18/19 12:01 Dose: 400 mg Documented by: [id number] Montelukast Sodium (Singulair) 10 mg PO QAM [facility] Stop: 12/18/19 10:14 Last Admin: 11/18/19 12:02 Dose: 10 mg Documented by: [id number] Multivitamins/Minerals (Multivitamin W/ Minerals Tab) 1 tab PO QAM [facility] Stop: 12/18/19 10:14 Last Admin: 11/18/19 12:01 Dose: 1 tab Documented by: [id number] Fluticasone/Salmeterol (Advair Diskus 250/50) 1 puffs INH BID [facility] Stop: 12/18/19 10:14 Last Admin: 11/18/19 11:59 Dose: 1 puffs Documented by: [id number] Senna/Docusate Sodium (Senokot S) 1 tab PO BID [facility] Stop: 12/18/19 10:14 Last Admin: 11/18/19 12:01 Dose: 1 tab Documented by: [id number] Discontinued Medications Sodium Chloride (Nss) 500 mls @ 999 mls/hr IV .Q31M ONE Stop: 11/18/19 07:09 Last Infusion: 11/18/19 07:51 Dose: 0 mls/hr Documented by: [id number] Admin: 11/18/19 07:04 Dose: 999 mls/hr Documented by: [id number] Cefepime HCl 2,000 mg/ Syringe 20 mls @ 5.5 mls/min IV NOW STA; Protocol Stop: 11/18/19 07:18 Last Admin: 11/18/19 07:37 Dose: 5.5 mls/min Documented by: [id number] Medical Decision Making Differential Diagnosis Differential Diagnosis includes: Sepsis, pneumonia, influenza, UTI, CHF, electrolyte or metabolic imbalance, amongst others. Medical Records Attestation: I reviewed the patient's medical records. Home Medications Current Medication List: was personally reviewed by me Laboratory Data Attestation: I reviewed the patient's lab results. Result diagrams: 11/18/19 06:40 11/18/19 06:40 Lab Results 11/18/19 11/18/19 11/18/19 Range/Units 06:40 06:40 06:40 WBC 10.14 (4.8-10.8) K/uL RBC 3.63 L (4.2-5.4) M/uL Hgb 9.9 L (12.0-16.0) g/dL Hct 31.7 L (37-47) % MCV 87.3 (80-100) fL MCH 27.3 (25-34) pg MCHC 31.2 L (32-36) g/dL RDW Std Deviation 52.8 H (36.4-46.3) fL RDW Coeff of Mehnaz 16.4 H (11.5-14.5) % Plt Count 197 (130-400) K/uL MPV 10.0 (7.4-10.4) fL Immature Gran % (Auto) 0.2 % Neut % (Auto) 86.8 % Lymph % (Auto) 4.3 % Swisher % (Auto) 7.5 % Eos % (Auto) 1.0 % Baso % (Auto) 0.2 % Immature Gran # (Auto) 0.02 (0.00-0.02) K/uL Neut # (Auto) 8.80 H (1.4-6.5) K/uL Lymph # (Auto) 0.44 L (1.2-3.4) K/uL Swisher # (Auto) 0.76 H (0.11-0.59) K/uL Eos # (Auto) 0.10 (0-0.5) K/uL Baso # (Auto) 0.02 (0-0.2) K/uL PT 46.8 H (9.0-12.0) Seconds INR 5.1 H (0.9-1.1) APTT 52.3 H* (21.0-31.0) Seconds PTT Ratio 1.9 Sodium (136-145) mmol/L Potassium (3.5-5.1) mmol/L Chloride (98-107) mmol/L Carbon Dioxide (21-32) mmol/L Anion Gap (3-11) BUN (7-18) mg/dl Creatinine (0.6-1.2) mg/dl Est Cr Clr Drug Dosing ml/min Est GFR ( Amer) Est GFR (Non-Af Amer) BUN/Creatinine Ratio (10-20) Glucose (70-99) mg/dl Lactate (0.4-2.0) mmol/L Calcium (8.5-10.1) mg/dl Magnesium (1.8-2.4) mg/dl Total Bilirubin (0.2-1) mg/dl AST (15-37) U/L ALT (12-78) U/L Alkaline Phosphatase (45-117) U/L Troponin I (0-0.045) ng/ml Total Protein (6.4-8.2) gm/dl Albumin (3.4-5.0) gm/dl Globulin (2.5-4.0) gm/dl Albumin/Globulin Ratio (0.9-2) Procalcitonin 0.89 H (0-0.5) ng/ml Influenza Type A (PCR) (Neg) Influenza Type B (PCR) (Neg) 11/18/19 11/18/19 11/18/19 Range/Units 06:40 06:51 06:55 WBC (4.8-10.8) K/uL RBC (4.2-5.4) M/uL Hgb (12.0-16.0) g/dL Hct (37-47) % MCV (80-100) fL MCH (25-34) pg MCHC (32-36) g/dL RDW Std Deviation (36.4-46.3) fL RDW Coeff of Mehnaz (11.5-14.5) % Plt Count (130-400) K/uL MPV (7.4-10.4) fL Immature Gran % (Auto) % Neut % (Auto) % Lymph % (Auto) % Swisher % (Auto) % Eos % (Auto) % Baso % (Auto) % Immature Gran # (Auto) (0.00-0.02) K/uL Neut # (Auto) (1.4-6.5) K/uL Lymph # (Auto) (1.2-3.4) K/uL Swisher # (Auto) (0.11-0.59) K/uL Eos # (Auto) (0-0.5) K/uL Baso # (Auto) (0-0.2) K/uL PT (9.0-12.0) Seconds INR (0.9-1.1) APTT (21.0-31.0) Seconds PTT Ratio Sodium 138 (136-145) mmol/L Potassium 4.3 (3.5-5.1) mmol/L Chloride 99 (98-107) mmol/L Carbon Dioxide 30 (21-32) mmol/L Anion Gap 9.0 (3-11) BUN 46 H (7-18) mg/dl Creatinine 1.51 H (0.6-1.2) mg/dl Est Cr Clr Drug Dosing 52.9 ml/min Est GFR ( Amer) 41.6 Est GFR (Non-Af Amer) 35.9 BUN/Creatinine Ratio 30.3 H (10-20) Glucose 212 H (70-99) mg/dl Lactate 2.2 H* (0.4-2.0) mmol/L Calcium 9.3 (8.5-10.1) mg/dl Magnesium 2.0 (1.8-2.4) mg/dl Total Bilirubin 0.5 (0.2-1) mg/dl AST 21 (15-37) U/L ALT 31 (12-78) U/L Alkaline Phosphatase 111 (45-117) U/L Troponin I < 0.015 (0-0.045) ng/ml Total Protein 6.9 (6.4-8.2) gm/dl Albumin 2.7 L (3.4-5.0) gm/dl Globulin 4.2 H (2.5-4.0) gm/dl Albumin/Globulin Ratio 0.6 L (0.9-2) Procalcitonin (0-0.5) ng/ml Influenza Type A (PCR) Neg for Influ A (Neg) Influenza Type B (PCR) Neg for Influ B (Neg) Imaging Data Radiologist's Impression: Radiology results as stated below per my review and the radiologist's interpretation: XR chest 1V portable CLINICAL HISTORY: SEPSIS dyspnea COMPARISON STUDY: 10/29/2019 FINDINGS: Mild stable cardiomegaly. Central catheter in superior vena cava. Slight chronic prominence of the pulmonary vasculature. Total left shoulder arthroplasty. No focal infiltrate. IMPRESSION: Chronic and postoperative change. No acute process. ACT 112: Negative or not required by law. The above report was generated using voice recognition software. It may contain grammatical, syntax or spelling errors. Electronically signed by: Carlos Boyce M.D. 11/18/2019 7:33 AM ECG Data Attestation: I personally reviewed and interpreted this ECG as follows: Indication: + SOB/dyspnea Rate (beats per minute): 76 Rhythm: + normal sinus ECG ST segments: no ST depression and no ST elevation ECG Findings: no PACs and no PVCs Comparison ECG Date: from (10/23/19) Change: no significant change Blood Pressure Blood Pressure Findings: Elevated blood pressure Blood Pressure Disposition: further management by hospitalist BILLIE Narrative This patient comes in as described above. She was placed in room A10. She is brought in after having a fever she was short of breath but says she feels better. She does have multiple medical problems. A full sepsis work-up was done she was placed on oxygen as she was found to be hypoxemic. Chest x-ray, EKG, multiple blood testing was obtained including blood cultures. She was reassessed frequently. She was given IV normal saline bolus initially. Her lactic acid is mildly elevated. Chest x-ray does not show any definite infiltrates. EKG does not show any ischemic changes she has no significant electrolyte or metabolic abnormality. She was given IV cefepime 2 g. In regards to her fever and her source may be her hip wound. It could also be pulmonary or respiratory. I do think feel she needs to be admitted for further treatment and evaluation Impression & Plan Sepsis, Wound, open, hip or thigh, DM type 2 (diabetes mellitus, type 2), Chronic anticoagulation Discharge Plan Visit Data *Final* Discharge Date/Time: 11/18/19 09:19 Chief Complaint: Fever Stated Complaint: FEVER ED Provider: Kei Heller Discharge Problem: Sepsis, Wound, open, hip or thigh, DM type 2 (diabetes mellitus, type 2), Chronic anticoagulation Patient Disposition: Admitted As Inpatient Discharge Instructions Interventions: ED Discharge Assessment Last Done: 11/18/19 09:19 Discharge Problem: Sepsis Qualifiers: Sepsis type: sepsis due to unspecified organism Sepsis acute organ dysfunction status: unspecified Qualified Code(s): A41.9 - Sepsis, unspecified organism DM type 2 (diabetes mellitus, type 2) Qualifiers: Diabetes mellitus retirement insulin use: with retirement use Diabetes mellitus complication status: without complication Qualified Code(s): E11.9 - Type 2 diabetes mellitus without complications The scribe's documentation has been prepared under my direction and personally reviewed by me in its entirety. I confirm that the note above accurately reflects all work, treatment, procedures, and medical decision making performed by me.
[2019-11-18 07:11] LABS: Alanine Aminotransferase 31 U/L (12-78); Albumin Level 2.7 gm/dl (3.4-5.0); Aspartate Aminotransferase 21 U/L (15-37); BUN Creatinine Ratio 30.3 (10-20); Blood Urea Nitrogen 46 mg/dl (7-18); Calcium 9.3 mg/dl (8.5-10.1); Carbon Dioxide 30 mmol/L (21-32); Chloride 99 mmol/L (98-107); Creatinine Clr Calc Pharmacy 52.9 ml/min; Est GFR (African American) 41.6; Est GFR (Non-African American) 35.9; Glucose 212 mg/dl (70-99); Potassium 4.3 mmol/L (3.5-5.1); Sodium 138 mmol/L (136-145)
[2019-11-18] MEDS ORDERED: CEFEPIME 2,000 MG in SYRINGE 7.5 ML IV STA (07:15)
[2019-11-18 07:16] LABS: Albumin Globulin Ratio 0.6 (0.9-2); Alkaline Phosphatase 111 U/L (45-117); Bilirubin,Total 0.5 mg/dl (0.2-1); Globulin 4.2 gm/dl (2.5-4.0); Total Protein 6.9 gm/dl (6.4-8.2); Troponin I < 0.015 ng/ml (0-0.045)
[2019-11-18 07:21] LABS: Partial Thromboplastin Ratio 1.9; Prothrombin Time 46.8 Seconds (9.0-12.0)
[2019-11-18 07:32] LABS: Partial Thromboplastin Time 52.3 Seconds (21.0-31.0)
[2019-11-18 07:33] LABS: INR 5.1 (0.9-1.1)
--- NOTE | 2019-11-18 07:34 | XRay Report ---
XR chest 1V portable CLINICAL HISTORY: SEPSIS dyspnea COMPARISON STUDY: 10/29/2019 FINDINGS: Mild stable cardiomegaly. Central catheter in superior vena cava. Slight chronic prominence of the pulmonary vasculature. Total left shoulder arthroplasty. No focal infiltrate. IMPRESSION: Chronic and postoperative change. No acute process. ACT 112: Negative or not required by law. The above report was generated using voice recognition software. It may contain grammatical, syntax or spelling errors. Electronically signed by: Carlos Boyce M.D. 11/18/2019 7:33 AM
[2019-11-18 07:41] LABS: Influenza A virus by PCR Neg for Influ A (Neg); Influenza B virus by PCR Neg for Influ B (Neg)
[2019-11-18] MEDS ORDERED: ONDANSETRON INJ 2 MG/ML 2 ML VIAL IV PRN (09:47)
[2019-11-18] MEDS ORDERED: OXYCODONE HCL IR 5 MG TAB (IMMEDIATE RELEASE) PO PRN (09:58)
[2019-11-18] MEDS: FLUTICASONE/SALMETEROL 250/50 (ADVAIR) 14 PUFF/1 INHALER INH SCH ×2 (11:59→21:03)
[2019-11-18] MEDS: AMIODARONE 200 MG TAB PO SCH (12:00)
[2019-11-18] MEDS: LACTOBACILLUS ACIDOPHILUS (FLORANEX) TAB PO SCH (12:00)
[2019-11-18] MEDS: DOCUSATE SODIUM/SENNA 50/8.6MG TAB PO SCH ×2 (12:01→21:06)
[2019-11-18] MEDS: GABAPENTIN 600 MG TAB PO SCH ×3 (12:01→21:04)
[2019-11-18] MEDS: MAGNESIUM OXIDE 400 MG TAB PO SCH (12:01)
[2019-11-18] MEDS: CEROVITE ADV FORMULA TAB PO SCH (12:01)
[2019-11-18] MEDS: MONTELUKAST SODIUM 10 MG TABLET PO SCH (12:02)
--- NOTE | 2019-11-18 12:41 | Electrocardiogram Report ---
Test Reason : Blood Pressure : / mmHG Vent. Rate : 076 BPM Atrial Rate : 076 BPM P-R Int : 160 ms QRS Dur : 114 ms QT Int : 422 ms P-R-T Axes : 079 -06 019 degrees QTc Int : 474 ms Normal sinus rhythm Possible Anterior infarct , age undetermined Possible Inferior infarct , age undetermined Abnormal ECG When compared with ECG of 23-OCT-2019 12:47, No significant change was found Confirmed by Jeffy Townsend ([id number]) on 11/18/2019 12:40:54 PM Referred By: [facility] Confirmed By:Jeffy Townsend
[2019-11-18] MEDS: INSULIN ASPART 100 UNITS/ML 3 ML PEN SC SCH ×3 (12:53→21:08)
--- NOTE | 2019-11-18 15:36 | History & Physical Report ---
Date of Service November 18, 2019 Assessment & Plan (1) Sepsis: fever, WBC normal with some initial growth on blood cultures, gram negative also, with gram positive growth on wound culture from 11/17 at wound clinic cover empirically with Daptomycin and Cefepime will consult Dr. French to see as she follows in outpatient setting vitals stable but with recurrent fever check UA/culture to rule out UTI, no pneumonia on CXR, flu negative repeat labs in the AM (2) Wound, open, hip or thigh: follows with wound clinic, seen on 11/17 with some debridement and culture growing gram positive cocci wound RN following here (3) DM type 2 (diabetes mellitus, type 2): DM diet, Novolog SS monitor for hypoglycemia (4) Chronic anticoagulation: INR is elevated at 5.1 hold Coumadin (5) Anemia: Hb stable at 9.9 (6) Hypothyroid: Synthroid History of Present Illness Chief Complaint: I had a fever Primary Care Provider: [facility] 64 yo female who is at [facility], recently discharged on 11/01 after hospitalization for acute on chronic respiratory failure, wound cellulitis that was positive for MRSA and Pseudomonas. She completed treatment for the cellulitis with PO antibiotics on 11/08/19. She reports that she was feeling really well the past two weeks since discharge. She was eating well, breathing normally. She developed a fever last night, no other symptoms except some shortness of breath. She did not have a cough, no sputum production. She denies having abdominal pain. Eating well. No dysuria that she noticed. [facility] sent her to the ED due to the fever and dyspnea. Her breathing quickly improved with a single breathing treatment. CXR did not show signs of pneumonia. WBC was normal at 10k and influenza negative. INR was elevated at 5.1. Cr noted to be at baseline of 1.5. Pt complains of constipation for a few days, she feels like she has a very hard stool that won't pass. She got a dose of Cefepime in the ED, admission requested. Allergies Allergy/AdvReac Type Severity Reaction Status Date / Time Iodinated Contrast Media Allergy Intermediate HIVES Verified 11/18/19 07:39 latex Allergy Unknown LOW LEVEL Verified 11/18/19 07:39 LATEX ALLERGY Quinolones Allergy Unknown DR HICKS Verified 11/18/19 07:39 ASKED THAT ALLERGY BE ADDED 07/31/08 Sulfa (Sulfonamide Allergy Unknown HIVES Verified 11/18/19 07:39 Antibiotics) vancomycin Allergy Unknown HIVES, GI Verified 11/18/19 07:39 UPSET pineapple Allergy Verified 11/18/19 15:29 Home Medications Home Medications Medication Instructions Recorded Confirmed Type aspirin 81 mg PO DAILY 08/02/18 11/18/19 History atorvastatin 40 mg PO HS 08/02/18 11/18/19 History fluticasone propionate 2 spray INTRANASAL HS 08/02/18 11/18/19 History gabapentin 600 mg PO TID 08/02/18 11/18/19 History magnesium oxide 400 mg PO QAM 08/02/18 11/18/19 History multivitamin with minerals 1 tab PO QAM 08/02/18 11/18/19 History [Multiple Vitamin-Minerals] Lactinex 1 tab PO DAILY 10/13/19 11/18/19 History albuterol sulfate [Ventolin HFA] 2 puff INHALATION Q4 PRN 10/13/19 11/18/19 History insulin lispro [Humalog U-100 1 sliding scale dose SUBCUT 10/13/19 11/18/19 History Insulin] USEASDIRECTD PRN ipratropium-albuterol 3 ml INHALATION UD PRN 10/13/19 11/18/19 History levothyroxine 112 mcg PO QPM 10/13/19 11/18/19 History montelukast 10 mg PO QAM 10/13/19 11/18/19 History sennosides-docusate sodium 1 tab-cap PO BID 10/13/19 11/18/19 History [Senokot-S] oxycodone 5 mg PO TID PRN #10 tab 10/19/19 11/18/19 Rx furosemide [Lasix] 40 mg PO BID 10/23/19 11/18/19 History metformin 500 mg PO BID #60 tab 11/01/19 11/18/19 Rx metoprolol tartrate 25 mg PO BID #60 tab 11/01/19 11/18/19 Rx sitagliptin 50 mg PO DAILY #30 tab 11/01/19 11/18/19 Rx warfarin 5 mg PO DAILY #30 tab 11/01/19 11/18/19 Rx acetaminophen 650 mg PO Q6H PRN 11/18/19 11/18/19 History amiodarone 200 mg PO QAM 11/18/19 11/18/19 History fluticasone propion-salmeterol 1 inh INHALATION BID 11/18/19 11/18/19 History [Advair Diskus] furosemide 20 mg PO DAILY PRN 11/18/19 11/18/19 History Past Med/Surg History Medical History A-fib Acute and chronic respiratory failure with hypoxia Acute kidney failure Anemia Asthma (Chronic) CHF exacerbation (Acute) Chronic joint pain (Acute) CVA (cerebral vascular accident) (Acute) DM type 2 (diabetes mellitus, type 2) (Chronic) History of left shoulder replacement (Acute) Hypertension (Chronic) Hypothyroid Left cervical radiculopathy (Acute) Morbid obesity with body mass index of 50 or higher (Chronic) Osteoarthritis (Chronic) Pneumonia Respiratory failure with hypoxia and hypercapnia (Acute) Sleep apnea (Chronic) "on cpap" Stroke-like symptoms Volume overload (Acute) Wound cellulitis Surgical History Status post bilateral total hip replacement (Chronic) Family History Other Family history non-contributory Social History Preferred Language: Spanish Communication Ability: Effective Pulp Grinder Required: No Beliefs That Will Affect Care: None marital status: Single Current Living Situation: Retirement Current Living Situation Comment: [facility] Other Information That Helps Us Care for You: No Feels Safe at Home: Yes Safety Concerns: Feels Safe At This Time Smoking Status: Never smoker Second Hand Exposure: No ; Hx Alcohol Use: No Hx Substance Use: No Review of Systems Review of Systems: All systems reviewed & are unremarkable except as noted in HPI & below Constitutional: + fever, + chills and + sweats; no fatigue and no weakness Respiratory: + dyspnea; no cough, no dyspnea on exertion, no snoring and no wheezing Cardiovascular: no chest pain, no syncope and no edema Gastrointestinal: + constipation; no abdominal pain, no nausea, no vomiting and no diarrhea/loose stools Genitourinary: no dysuria Integumentary: + wounds Physical Exam Constitutional: well developed, well nourished and + obese; no acute distress Eyes: PERRL, conjunctivae normal, anicteric sclerae ENMT: external ear and nose normal, oropharynx normal Neck: trachea midline, no thyromegaly Respiratory: normal respiratory effort, lungs clear to auscultation Cardiovascular: RRR, no murmur, no edema Gastrointestinal (Abdomen): normal bowel sounds, soft, nontender, no hepatosplenomegaly Musculoskeletal: no cyanosis or clubbing, extremities motor strength 5/5 Skin: + wound (hip wound) Neurologic: patellar DTR's 2+ bilat, sensation intact and PERRL, EOMI, accommodation nl, no face palsy, no dysarthria Psychiatric: A+Ox3, euthymic affect Lymphatic: no cervical or axillary lymphadenopathy Results & Data Vital Signs (Past 12 Hours) Vital Signs Temp Pulse Pulse Resp BP BP BP 11/18/19 15:23 64 11/18/19 12:15 37.0 C 63 20 108/61 11/18/19 09:54 62 11/18/19 09:41 37.2 C 64 20 130/71 11/18/19 09:08 60 19 118/48 L 11/18/19 07:40 68 20 120/59 L 11/18/19 06:43 76 11/18/19 06:31 37.8 C H 78 24 102/58 L Pulse Ox 11/18/19 15:23 11/18/19 12:15 97 11/18/19 09:54 11/18/19 09:41 95 11/18/19 09:08 95 11/18/19 07:40 96 11/18/19 06:43 91 11/18/19 06:31 85 L Laboratory Results Laboratory Results - last 24 hr 11/18/19 11/18/19 11/18/19 06:40 06:40 06:40 WBC 10.14 RBC 3.63 L Hgb 9.9 L Hct 31.7 L MCV 87.3 MCH 27.3 MCHC 31.2 L RDW Std Deviation 52.8 H RDW Coeff of Mehnaz 16.4 H Plt Count 197 MPV 10.0 Immature Gran % (Auto) 0.2 Neut % (Auto) 86.8 Lymph % (Auto) 4.3 Burnett % (Auto) 7.5 Eos % (Auto) 1.0 Baso % (Auto) 0.2 Immature Gran # (Auto) 0.02 Neut # (Auto) 8.80 H Lymph # (Auto) 0.44 L Burnett # (Auto) 0.76 H Eos # (Auto) 0.10 Baso # (Auto) 0.02 PT 46.8 H INR 5.1 H APTT 52.3 H* PTT Ratio 1.9 Sodium Potassium Chloride Carbon Dioxide Anion Gap BUN Creatinine Est Cr Clr Drug Dosing Est GFR ( Amer) Est GFR (Non-Af Amer) BUN/Creatinine Ratio Glucose POC Glucose Lactate Calcium Magnesium Total Bilirubin AST ALT Alkaline Phosphatase Troponin I Total Protein Albumin Globulin Albumin/Globulin Ratio Procalcitonin 0.89 H Nasal Screen MRSA (PCR) Influenza Type A (PCR) Influenza Type B (PCR) 11/18/19 11/18/19 11/18/19 06:40 06:51 06:55 WBC RBC Hgb Hct MCV MCH MCHC RDW Std Deviation RDW Coeff of Mehnaz Plt Count MPV Immature Gran % (Auto) Neut % (Auto) Lymph % (Auto) Burnett % (Auto) Eos % (Auto) Baso % (Auto) Immature Gran # (Auto) Neut # (Auto) Lymph # (Auto) Burnett # (Auto) Eos # (Auto) Baso # (Auto) PT INR APTT PTT Ratio Sodium 138 Potassium 4.3 Chloride 99 Carbon Dioxide 30 Anion Gap 9.0 BUN 46 H Creatinine 1.51 H Est Cr Clr Drug Dosing 52.9 Est GFR ( Amer) 41.6 Est GFR (Non-Af Amer) 35.9 BUN/Creatinine Ratio 30.3 H Glucose 212 H POC Glucose Lactate 2.2 H* Calcium 9.3 Magnesium 2.0 Total Bilirubin 0.5 AST 21 ALT 31 Alkaline Phosphatase 111 Troponin I < 0.015 Total Protein 6.9 Albumin 2.7 L Globulin 4.2 H Albumin/Globulin Ratio 0.6 L Procalcitonin Nasal Screen MRSA (PCR) Influenza Type A (PCR) Neg for Influ A Influenza Type B (PCR) Neg for Influ B 11/18/19 11/18/19 11/18/19 08:50 11:48 12:56 WBC RBC Hgb Hct MCV MCH MCHC RDW Std Deviation RDW Coeff of Mehnaz Plt Count MPV Immature Gran % (Auto) Neut % (Auto) Lymph % (Auto) Burnett % (Auto) Eos % (Auto) Baso % (Auto) Immature Gran # (Auto) Neut # (Auto) Lymph # (Auto) Burnett # (Auto) Eos # (Auto) Baso # (Auto) PT INR APTT PTT Ratio Sodium Potassium Chloride Carbon Dioxide Anion Gap BUN Creatinine Est Cr Clr Drug Dosing Est GFR ( Amer) Est GFR (Non-Af Amer) BUN/Creatinine Ratio Glucose POC Glucose 214 H Lactate 2.4 H* Calcium Magnesium Total Bilirubin AST ALT Alkaline Phosphatase Troponin I < 0.015 Total Protein Albumin Globulin Albumin/Globulin Ratio Procalcitonin Nasal Screen MRSA (PCR) Influenza Type A (PCR) Influenza Type B (PCR) 11/18/19 12:56 WBC RBC Hgb Hct MCV MCH MCHC RDW Std Deviation RDW Coeff of Mehnaz Plt Count MPV Immature Gran % (Auto) Neut % (Auto) Lymph % (Auto) Burnett % (Auto) Eos % (Auto) Baso % (Auto) Immature Gran # (Auto) Neut # (Auto) Lymph # (Auto) Burnett # (Auto) Eos # (Auto) Baso # (Auto) PT INR APTT PTT Ratio Sodium Potassium Chloride Carbon Dioxide Anion Gap BUN Creatinine Est Cr Clr Drug Dosing Est GFR ( Amer) Est GFR (Non-Af Amer) BUN/Creatinine Ratio Glucose POC Glucose Lactate Calcium Magnesium Total Bilirubin AST ALT Alkaline Phosphatase Troponin I Total Protein Albumin Globulin Albumin/Globulin Ratio Procalcitonin Nasal Screen MRSA (PCR) Negative Influenza Type A (PCR) Influenza Type B (PCR) Diagnostic Findings XR chest 1V portable CLINICAL HISTORY: SEPSIS dyspnea COMPARISON STUDY: 10/29/2019 FINDINGS: Mild stable cardiomegaly. Central catheter in superior vena cava. Slight chronic prominence of the pulmonary vasculature. Total left shoulder arthroplasty. No focal infiltrate. IMPRESSION: Chronic and postoperative change. No acute process Code Status & VTE Plan Code Status full code VTE Prophylaxis Plan VTE Prophylaxis will be ordered: Yes PG Care Time/CCT Total # of Minutes Spent Total Time Spent with Patient: Total time spent is greater than 50% in coordination of care (as documented) at patient's floor/unit and/or counseling patient: (1) Sepsis Sepsis acute organ dysfunction status: unspecified Sepsis type: sepsis due to unspecified organism Qualified Code(s): A41.9 - Sepsis, unspecified organism (2) DM type 2 (diabetes mellitus, type 2) Diabetes mellitus complication status: without complication Diabetes mellitus nursing home insulin use: with nursing home use Qualified Code(s): E11.9 - Type 2 diabetes mellitus without complications; Z79.4 - jail (current) use of insulin (3) Hypothyroid Hypothyroidism type: unspecified Qualified Code(s): E03.9 - Hypothyroidism, unspecified
[2019-11-18] MEDS: ACETAMINOPHEN 325 MG TAB PO PRN (19:36)
[2019-11-18] MEDS: LEVOTHYROXINE SODIUM 112 MCG TABLET PO SCH (21:05)
[2019-11-18] MEDS: ATORVASTATIN 40 MG TAB PO SCH (21:05)
[2019-11-18] MEDS ORDERED: PIPERACILL/TAZOBAC CONSULT ACTIVE PRN (22:04)
--- NOTE | 2019-11-18 22:10 | Communication Note ---
Date of Service: November 18, 2019 PT with hx of mrsa and pseudomonas allergy to sulfa, quinolones, vanco. CX resulted demonstrating GPC on wound cx and Gram neg rods on blood cx. -given hx started on zosyn and clinda 600 mg q8h Resident Activity Tracking Resident Involvement: Resident Care Provided Care Provided: Adult Hospital Medicine
[2019-11-18] MEDS ORDERED: PIPERACILLIN/TAZOBACTAM 4.5 GM in DEXTROSE 5% 100 ML IV ONE (22:15)
[2019-11-18] MEDS ORDERED: CLINDAMYCIN 600 MG in DEXTROSE 5% 50 ML IV SCH (22:15)
[2019-11-18] MEDS ORDERED: DEXTROSE 50% 50 ML SYRINGE IV PRN (23:45)
[2019-11-18] MEDS ORDERED: GLUCOSE 10 TABS/TUBE PO PRN (23:45)
[2019-11-18] MEDS ORDERED: CARBOHYDRATES FOR HYPOGLYCEMIA PO PRN (23:45)
[2019-11-18] MEDS ORDERED: GLUCAGON FOR INJ 1 MG VIAL SQ PRN (23:45)
[2019-11-18] MEDS ORDERED: GLUCOSE 40% GEL 15 GM TUBE PO PRN (23:45)
[2019-11-19] MEDS: DAPTOmycin 375 MG in SYRINGE 0 ML IV SCH (00:37)
--- NOTE | 2019-11-19 06:41 | Emergency Department Note ---
ED Visit Note This is an addendum to the visit on 11/18/2019. Due to the patient's sepsis, I have personally spent greater than 35 minutes of critical care time in the direct management of this patient. This includes bedside care, interpretation of diagnostic studies, and testing, discussion with consultants, patient, and family members, and other required patient management activities. This 35 minutes is in excess of all separately billable procedures. . : Sepsis Qualifiers: Sepsis type: sepsis due to unspecified organism Sepsis acute organ dysfunction status: unspecified Qualified Code(s): A41.9 - Sepsis, unspecified organism DM type 2 (diabetes mellitus, type 2) Qualifiers: Diabetes mellitus ferry terminal agent insulin use: with ferry terminal agent use Diabetes mellitus complication status: without complication Qualified Code(s): E11.9 - Type 2 diabetes mellitus without complications
[2019-11-19 08:49] LABS: Hematocrit (blood only) 31.4 % (37-47); Hemoglobin 9.6 g/dL (12.0-16.0); Mean Corpuscular Hemoglobin 26.9 pg (25-34); Mean Corpuscular Hgb Conc 30.6 g/dL (32-36); Mean Platelet Volume 10.2 fL (7.4-10.4); Platelet Count 187 K/uL (130-400); RDW Coefficient of Variation 16.6 % (11.5-14.5); RDW Standard Deviation 53.3 fL (36.4-46.3); Red Blood Count 3.57 M/uL (4.2-5.4)
[2019-11-19 09:17] LABS: BUN Creatinine Ratio 29.1 (10-20); Calcium 9.1 mg/dl (8.5-10.1); Creatinine Clr Calc Pharmacy 59.4 ml/min; Est GFR (African American) 50.3; Est GFR (Non-African American) 43.4; Potassium 3.8 mmol/L (3.5-5.1)
[2019-11-19] MEDS: DOCUSATE SODIUM/SENNA 50/8.6MG TAB PO SCH ×2 (09:20→21:17)
[2019-11-19] MEDS: GABAPENTIN 600 MG TAB PO SCH ×3 (09:20→21:16)
[2019-11-19] MEDS: LACTOBACILLUS ACIDOPHILUS (FLORANEX) TAB PO SCH (09:21)
[2019-11-19] MEDS: MONTELUKAST SODIUM 10 MG TABLET PO SCH (09:21)
[2019-11-19] MEDS: MAGNESIUM OXIDE 400 MG TAB PO SCH (09:22)
[2019-11-19] MEDS: CEROVITE ADV FORMULA TAB PO SCH (09:22)
[2019-11-19] MEDS: AMIODARONE 200 MG TAB PO SCH (09:22)
[2019-11-19] MEDS: FLUTICASONE/SALMETEROL 250/50 (ADVAIR) 14 PUFF/1 INHALER INH SCH ×2 (09:22→21:14)
--- NOTE | 2019-11-19 09:23 | Hospitalist Progress Note ---
Date of Service November 19, 2019 Assessment & Plan (1) Sepsis: Patient febrile overnight, no leukocytosis. Cultures reviewed, patient has gram-positive cocci out of the right hip wound along with 1 out of 2 blood culture bottles positive for gram-negative rods. Urinalysis appears to be sig nificant with a leukoesterases and pyuria, may be source of gram negatives bacteremia. Patient is on daptomycin and cefepime, will continue these for now. Repeat blood cultures. Await urine culture results. Review chest x-ray, no obvious sign of pneumonia or infiltrate, consider CT scan if persistent sepsis. Infectious disease consulted for further management antibiotics. (2) Wound, open, hip or thigh: follows with wound clinic, seen on 11/17 with some debridement and culture growing gram positive cocci wound RN following here. Infectious disease to see here. (3) DM type 2 (diabetes mellitus, type 2): DM diet, Novolog SS monitor for hypoglycemia (4) Chronic anticoagulation: INR is elevated at 5.1 hold Coumadin (5) Anemia: Hb stable at 9.6 (6) Hypothyroid: Synthroid Subjective Patient awake and alert. Finished most of breakfast. Denies any pain from the right hip. Patient was febrile last night to 38.7 C. Appears to be afebrile now. Patient exhibits a loose cough which she says is chronic. There is occasional white/clear production with this. Denies any chest pain or significant short of breath. Physical Exam Physical Exam: Gen: AAOx3, NAD, morbidly obese HEENT: neck supple, no JVD. MMM. Heart: RR, no murmurs Lungs: Bilateral rhonchi, somewhat limited exam. No obvious wheeze. Abd: soft, nontender, nondistended. Normal BS Neuro: awake, alert. Nonfocal Psych: appropriate mood and affect Ext: No clubbing, cyanosis, edema, right hip is dressed, did not disturb. No surrounding erythema. Results & Data Vital Signs (Past 12 Hours) Vital Signs Temp Pulse Pulse Resp BP Pulse Ox 11/19/19 07:24 36.7 C 65 16 115/53 L 91 11/19/19 03:52 37.1 C 57 L 19 125/77 94 11/19/19 00:41 65 11/18/19 23:59 36.8 C 62 20 140/81 95 PG Care Time/CCT Total # of Minutes Spent Total Time Spent with Patient: Total time spent is greater than 50% in coordination of care (as documented) at patient's floor/unit and/or counseling patient: (1) Sepsis Sepsis acute organ dysfunction status: unspecified Sepsis type: sepsis due to unspecified organism Qualified Code(s): A41.9 - Sepsis, unspecified organism (2) DM type 2 (diabetes mellitus, type 2) Diabetes mellitus complication status: without complication Diabetes mellitus remote computer terminal operator insulin use: with remote computer terminal operator use Qualified Code(s): E11.9 - Type 2 diabetes mellitus without complications; Z79.4 - remote computer terminal operator (current) use of insulin (3) Hypothyroid Hypothyroidism type: unspecified Qualified Code(s): E03.9 - Hypothyroidism, unspecified
[2019-11-19] MEDS: METOPROLOL TARTRATE 25 MG TAB PO SCH ×2 (09:37→21:15)
[2019-11-19] MEDS: ASPIRIN 81 MG ECTAB PO SCH (09:37)
[2019-11-19] MEDS: FUROSEMIDE 40 MG TAB PO SCH ×2 (09:37→17:58)
[2019-11-19] MEDS: CEFEPIME 2,000 MG in SYRINGE 7.5 ML IV SCH ×2 (09:38→21:18)
[2019-11-19] MEDS: INSULIN ASPART 100 UNITS/ML 3 ML PEN SC SCH ×4 (09:40→21:42)
[2019-11-19 10:14] LABS: Appearance Urine Clear (Clear); Bacteria Urine Automated Negative (Negative); Bilirubin Urine Negative (Negative); Blood Urine 3+ (Negative); Color Urine Yellow; Epithelial Cell Urine Auto >30 /lpf (0-5); Glucose Urine UA Negative (Negative); Ketones Urine Negative (Negative); Leukocyte Esterase Urine 1+ (Negative); Nitrite Urine Negative (Negative); Protein Urine 2+ (Negative); Specific Gravity Urine 1.018 (1.000-1.030); Urobilinogen Urine Negative (Negative)
[2019-11-19] MEDS: ACETAMINOPHEN 325 MG TAB PO PRN (13:14)
[2019-11-19] MEDS: LEVOTHYROXINE SODIUM 112 MCG TABLET PO SCH (21:16)
[2019-11-19] MEDS: ATORVASTATIN 40 MG TAB PO SCH (21:40)
[2019-11-20] MEDS: DAPTOmycin 375 MG in SYRINGE 0 ML IV SCH (01:45)
[2019-11-20 06:35] LABS: Basophils # (auto) 0.02 K/uL (0-0.2); Basophils % (auto) 0.4 %; Eosinophils # (auto) 0.28 K/uL (0-0.5); Eosinophils % (auto) 5.8 %; Hematocrit (blood only) 27.6 % (37-47); Hemoglobin 8.8 g/dL (12.0-16.0); Immature Granulocytes # (auto) 0.04 K/uL (0.00-0.02); Immature Granulocytes % (auto) 0.8 %; Lymphocytes # (auto) 0.76 K/uL (1.2-3.4); Lymphocytes % (auto) 15.7 %; Mean Corpuscular Hgb Conc 31.9 g/dL (32-36); Mean Corpuscular Volume 87.9 fL (80-100); Mean Platelet Volume 9.8 fL (7.4-10.4); Monocytes % (auto) 14.4 %; Neutrophils # (auto) 3.05 K/uL (1.4-6.5); Neutrophils % (auto) 62.9 %; Platelet Count 184 K/uL (130-400); RDW Coefficient of Variation 16.6 % (11.5-14.5); RDW Standard Deviation 53.7 fL (36.4-46.3); Red Blood Count 3.14 M/uL (4.2-5.4); White Blood Count 4.85 K/uL (4.8-10.8)
[2019-11-20 06:49] LABS: INR 2.6 (0.9-1.1); Prothrombin Time 24.8 Seconds (9.0-12.0)
[2019-11-20 07:14] LABS: BUN Creatinine Ratio 27.7 (10-20); Calcium 8.6 mg/dl (8.5-10.1); Creatinine Clr Calc Pharmacy 67.1 ml/min; Est GFR (African American) 56.6; Est GFR (Non-African American) 48.9; Potassium 3.8 mmol/L (3.5-5.1)
--- NOTE | 2019-11-20 07:38 | Infectious Disease Consult ---
Date of Consultation November 20, 2019 Assessment & Plan (1) Gram negative septicemia: will change to ertapenem based on blood culture results and follow repeat cultures. suspect wound as source as no other clear sourse apparent at this time. follow outpatient wound culture from 11/17 as well will continue dapto pending final results. continue wound care. History of Present Illness Attending Physician: Gerardo Barajas, pt admitted from snf with fever.tmax 38.7, placed on dapto and cefepime, tolerating well. wbc 5, creat 1.2, UA 10-30 wbc, >30 ep cells, no bacteria CXR negtive. no cough, sob,cp, wearing cpap on my exam, no abd pain, no n/v/d. Initial blood cultures 11/18 - 11/10 sets with ESBL + E. coli, resistant to cefepime. repeat pending, Urine culture pending. She was evaluated by ID on 10/26 inpatient for wound on leg, grew MRSA and pseudomonas, she was treated with imipenem and doxy. has not had outpatient f/u with ID however, she was evaluated by wound center on 11/17 - culture of hip obtained, growing strep species. pt without pain on my exam. Allergies Allergy/AdvReac Type Severity Reaction Status Date / Time Iodinated Contrast Media Allergy Intermediate HIVES Verified 11/18/19 07:39 latex Allergy Unknown LOW LEVEL Verified 11/18/19 07:39 LATEX ALLERGY Quinolones Allergy Unknown DR HICKS Verified 11/18/19 07:39 ASKED THAT ALLERGY BE ADDED 07/31/08 Sulfa (Sulfonamide Allergy Unknown HIVES Verified 11/18/19 07:39 Antibiotics) vancomycin Allergy Unknown HIVES, GI Verified 11/18/19 07:39 UPSET pineapple Allergy Verified 11/18/19 15:29 Home Medications Home Medications Medication Instructions Recorded Confirmed Type aspirin 81 mg PO DAILY 08/02/18 11/18/19 History atorvastatin 40 mg PO HS 08/02/18 11/18/19 History fluticasone propionate 2 spray INTRANASAL HS 08/02/18 11/18/19 History gabapentin 600 mg PO TID 08/02/18 11/18/19 History magnesium oxide 400 mg PO QAM 08/02/18 11/18/19 History multivitamin with minerals 1 tab PO QAM 08/02/18 11/18/19 History [Multiple Vitamin-Minerals] Lactinex 1 tab PO DAILY 10/13/19 11/18/19 History albuterol sulfate [Ventolin HFA] 2 puff INHALATION Q4 PRN 10/13/19 11/18/19 History insulin lispro [Humalog U-100 1 sliding scale dose SUBCUT 10/13/19 11/18/19 History Insulin] USEASDIRECTD PRN ipratropium-albuterol 3 ml INHALATION UD PRN 10/13/19 11/18/19 History levothyroxine 112 mcg PO QPM 10/13/19 11/18/19 History montelukast 10 mg PO QAM 10/13/19 11/18/19 History sennosides-docusate sodium 1 tab-cap PO BID 10/13/19 11/18/19 History [Senokot-S] oxycodone 5 mg PO TID PRN #10 tab 10/19/19 11/18/19 Rx furosemide [Lasix] 40 mg PO BID 10/23/19 11/18/19 History metformin 500 mg PO BID #60 tab 11/01/19 11/18/19 Rx metoprolol tartrate 25 mg PO BID #60 tab 11/01/19 11/18/19 Rx sitagliptin 50 mg PO DAILY #30 tab 11/01/19 11/18/19 Rx warfarin 5 mg PO DAILY #30 tab 11/01/19 11/18/19 Rx acetaminophen 650 mg PO Q6H PRN 11/18/19 11/18/19 History amiodarone 200 mg PO QAM 11/18/19 11/18/19 History fluticasone propion-salmeterol 1 inh INHALATION BID 11/18/19 11/18/19 History [Advair Diskus] furosemide 20 mg PO DAILY PRN 11/18/19 11/18/19 History Patient History Medical History A-fib Acute and chronic respiratory failure with hypoxia Acute kidney failure Anemia Asthma (Chronic) CHF exacerbation (Acute) Chronic joint pain (Acute) CVA (cerebral vascular accident) (Acute) DM type 2 (diabetes mellitus, type 2) (Chronic) History of left shoulder replacement (Acute) Hypertension (Chronic) Hypothyroid Left cervical radiculopathy (Acute) Morbid obesity with body mass index of 50 or higher (Chronic) Osteoarthritis (Chronic) Pneumonia Respiratory failure with hypoxia and hypercapnia (Acute) Sleep apnea (Chronic) "on cpap" Stroke-like symptoms Volume overload (Acute) Wound cellulitis Surgical History Status post bilateral total hip replacement (Chronic) Family History Other Family history non-contributory Social History Preferred Language: Luxembourgish Communication Ability: Effective Bus Matron Required: No Beliefs That Will Affect Care: None marital status: Single Current Living Situation: Prison Current Living Situation Comment: [facility] Other Information That Helps Us Care for You: No Feels Safe at Home: Yes Safety Concerns: Feels Safe At This Time Smoking Status: Never smoker Second Hand Exposure: No ; Hx Alcohol Use: No Hx Substance Use: No Review of Systems Review of Systems: All systems reviewed & are unremarkable except as noted in HPI & below Physical Exam Constitutional: WD/WN, vitals as above Eyes: PERRL, conjunctivae normal, anicteric sclerae ENMT: external ear and nose normal, oropharynx normal Neck: normal visual inspection Respiratory: normal respiratory effort, lungs clear to auscultation Cardiovascular: RRR, no murmur, no edema Gastrointestinal (Abdomen): normal bowel sounds, soft, nontender, no hepatosplenomegaly Musculoskeletal: no cyanosis or clubbing, extremities motor strength 5/5 Skin: no rashes, warm and dry Psychiatric: A+Ox3, euthymic affect Results & Data Vital Signs (Past 12 Hours) Vital Signs Temp Pulse Pulse Resp BP Pulse Ox 11/20/19 04:32 36.6 C 60 16 114/66 95 11/20/19 01:43 62 11/19/19 23:45 59 L 20 95 11/19/19 22:30 37.0 C 60 20 109/69 96 11/19/19 20:20 37.2 C 62 20 117/69 97 Laboratory Results Microbiology 11/18/19 06:51 Blood Aerobic Blood Culture - Preliminary No growth in Aerobic bottle after 24 hours. 11/18/19 06:51 Blood Anaerobic Blood Culture - Preliminary Escherichia coli ESBL 11/18/19 06:40 Blood Aerobic Blood Culture - Preliminary No growth in Aerobic bottle after 24 hours. 11/18/19 06:40 Blood Anaerobic Blood Culture - Preliminary No growth in Anaerobic bottle after 24 hours. PG Care Time/CCT Total # of Minutes Spent Total Time Spent with Patient: Total time spent is greater than 50% in coordination of care (as documented) at patient's floor/unit and/or counseling patient:
[2019-11-20] MEDS: FLUTICASONE/SALMETEROL 250/50 (ADVAIR) 14 PUFF/1 INHALER INH SCH ×2 (08:39→21:12)
[2019-11-20] MEDS: GABAPENTIN 600 MG TAB PO SCH ×3 (08:40→21:10)
[2019-11-20] MEDS: LACTOBACILLUS ACIDOPHILUS (FLORANEX) TAB PO SCH (08:40)
[2019-11-20] MEDS: MAGNESIUM OXIDE 400 MG TAB PO SCH (08:41)
[2019-11-20] MEDS: AMIODARONE 200 MG TAB PO SCH (08:41)
[2019-11-20] MEDS: ASPIRIN 81 MG ECTAB PO SCH (08:41)
[2019-11-20] MEDS: CEROVITE ADV FORMULA TAB PO SCH (08:42)
[2019-11-20] MEDS: FUROSEMIDE 40 MG TAB PO SCH ×2 (08:42→18:06)
[2019-11-20] MEDS: METOPROLOL TARTRATE 25 MG TAB PO SCH ×2 (08:42→21:12)
[2019-11-20] MEDS: DOCUSATE SODIUM/SENNA 50/8.6MG TAB PO SCH ×2 (08:43→21:08)
[2019-11-20] MEDS: MONTELUKAST SODIUM 10 MG TABLET PO SCH (08:43)
[2019-11-20] MEDS: INSULIN ASPART 100 UNITS/ML 3 ML PEN SC SCH ×4 (08:46→21:14)
[2019-11-20] MEDS: ERTAPENEM SODIUM 1,000 MG in SODIUM CHLORIDE 0.9% 50 ML IV SCH (08:48)
--- NOTE | 2019-11-20 09:14 | Hospitalist Progress Note ---
Date of Service November 20, 2019 Assessment & Plan (1) Sepsis: Patient now afebrile, still no leukocytosis. Cultures reviewed, urine is still pending. 1 out of 2 blood cultures growing gram-negative rods, now identified is ESBL E. coli, resistant to cefepime. I agree with infectious disease, cefepime was discontinued in favor of ertapenem this morning. Hip wound growing gamma hemolytic strep. Can continue daptomycin for now, suspect daptomycin to be downgraded but will await final sensitivities, infectious disease input. (2) Wound, open, hip or thigh: follows with wound clinic, seen on 11/17 with some debridement and culture growing gram positive cocci wound RN following here. Infectious disease to see here. (3) DM type 2 (diabetes mellitus, type 2): DM diet, Novolog SS monitor for hypoglycemia (4) Chronic anticoagulation: Coumadin held past several nights, INR is now down to 2.6. Can restart dosing at 5 mg daily which is her outpatient regimen. Continue to follow INR. (5) Anemia: Hemoglobin down to 8.8. Continue to monitor. (6) Hypothyroid: Synthroid Subjective Patient awake and alert. Tells me she feels hot and diaphoretic, suspect she may have a fever. Vital signs show patient was afebrile overnight. Patient is otherwise comfortable and eating breakfast. She denies any cough, shortness of breath, chest pain, or pain from the right hip. Physical Exam Constitutional: + morbidly obese and cooperative; no acute distress Neck: trachea midline, no thyromegaly Respiratory: normal respiratory effort Auscultation: lungs clear to auscultation bilaterally; no crackles, no rales, no rhonchi and no wheezes Limited secondary to habitus Cardiovascular: Rate/Rhythm: regular rate and regular rhythm Heart Sounds: normal S1, normal S2 and + murmur Limited secondary to habitus Gastrointestinal (Abdomen): Inspection/Auscultation: abdomen normal to inspection Percussion/Palpation: abdomen soft; abdomen nontender, no guarding, abdomen not rigid and no hepatosplenomegaly Musculoskeletal: Right hip with dressing, did not disturb Skin: no rashes, warm and dry Results & Data Vital Signs (Past 12 Hours) Vital Signs Temp Pulse Pulse Resp BP Pulse Ox 11/20/19 08:25 37.3 C 57 L 18 159/79 H 94 11/20/19 04:32 36.6 C 60 16 114/66 95 11/20/19 01:43 62 11/19/19 23:45 59 L 20 95 11/19/19 22:30 37.0 C 60 20 109/69 96 PG Care Time/CCT Total # of Minutes Spent Total Time Spent with Patient: Total time spent is greater than 50% in coordination of care (as documented) at patient's floor/unit and/or counseling patient: (1) Sepsis Sepsis acute organ dysfunction status: unspecified Sepsis type: sepsis due to unspecified organism Qualified Code(s): A41.9 - Sepsis, unspecified organism (2) DM type 2 (diabetes mellitus, type 2) Diabetes mellitus complication status: without complication Diabetes mellitus long term care social worker insulin use: with [facility] use Qualified Code(s): E11.9 - Type 2 diabetes mellitus without complications; Z79.4 - group home (current) use of insulin (3) Hypothyroid Hypothyroidism type: unspecified Qualified Code(s): E03.9 - Hypothyroidism, unspecified
[2019-11-20] MEDS: WARFARIN SOD 5 MG TAB PO SCH (18:06)
[2019-11-20] MEDS: ATORVASTATIN 40 MG TAB PO SCH (21:10)
[2019-11-20] MEDS: LEVOTHYROXINE SODIUM 112 MCG TABLET PO SCH (21:11)
[2019-11-21] MEDS: DAPTOmycin 375 MG in SYRINGE 0 ML IV SCH (02:01)
[2019-11-21 06:20] LABS: Basophils # (auto) 0.02 K/uL (0-0.2); Basophils % (auto) 0.4 %; Eosinophils # (auto) 0.29 K/uL (0-0.5); Eosinophils % (auto) 6.2 %; Hemoglobin 9.6 g/dL (12.0-16.0); Immature Granulocytes # (auto) 0.04 K/uL (0.00-0.02); Immature Granulocytes % (auto) 0.9 %; Lymphocytes # (auto) 1.03 K/uL (1.2-3.4); Lymphocytes % (auto) 21.9 %; Mean Corpuscular Hemoglobin 27.2 pg (25-34); Mean Corpuscular Volume 87.8 fL (80-100); Mean Platelet Volume 9.9 fL (7.4-10.4); Monocytes # (auto) 0.59 K/uL (0.11-0.59); Monocytes % (auto) 12.6 %; Neutrophils # (auto) 2.73 K/uL (1.4-6.5); Platelet Count 227 K/uL (130-400); RDW Coefficient of Variation 16.6 % (11.5-14.5); Red Blood Count 3.53 M/uL (4.2-5.4)
[2019-11-21 06:30] LABS: INR 1.8 (0.9-1.1); Prothrombin Time 18.1 Seconds (9.0-12.0)
[2019-11-21 06:48] LABS: BUN Creatinine Ratio 27.1 (10-20); Calcium 9.1 mg/dl (8.5-10.1); Creatinine Clr Calc Pharmacy 67.4 ml/min; Est GFR (African American) 57.2; Est GFR (Non-African American) 49.4; Potassium 3.7 mmol/L (3.5-5.1)
[2019-11-21] MEDS: INSULIN ASPART 100 UNITS/ML 3 ML PEN SC SCH ×4 (08:31→22:03)
[2019-11-21] MEDS: ERTAPENEM SODIUM 1,000 MG in SODIUM CHLORIDE 0.9% 50 ML IV SCH (08:32)
[2019-11-21] MEDS: ASPIRIN 81 MG ECTAB PO SCH (08:33)
[2019-11-21] MEDS: AMIODARONE 200 MG TAB PO SCH (08:33)
[2019-11-21] MEDS: FLUTICASONE/SALMETEROL 250/50 (ADVAIR) 14 PUFF/1 INHALER INH SCH ×2 (08:33→22:02)
[2019-11-21] MEDS: LACTOBACILLUS ACIDOPHILUS (FLORANEX) TAB PO SCH (08:34)
[2019-11-21] MEDS: MAGNESIUM OXIDE 400 MG TAB PO SCH (08:35)
[2019-11-21] MEDS: FUROSEMIDE 40 MG TAB PO SCH ×2 (08:35→17:36)
[2019-11-21] MEDS: METOPROLOL TARTRATE 25 MG TAB PO SCH ×2 (08:35→22:06)
[2019-11-21] MEDS: CEROVITE ADV FORMULA TAB PO SCH (08:36)
[2019-11-21] MEDS: GABAPENTIN 600 MG TAB PO SCH ×3 (08:36→22:03)
[2019-11-21] MEDS: MONTELUKAST SODIUM 10 MG TABLET PO SCH (08:37)
[2019-11-21] MEDS: DOCUSATE SODIUM/SENNA 50/8.6MG TAB PO SCH ×2 (08:37→22:04)
[2019-11-21] MEDS: ACETAMINOPHEN 325 MG TAB PO PRN (08:50)
--- NOTE | 2019-11-21 11:43 | Infectious Disease Progress Nt ---
Date of Service November 21, 2019 Assessment & Plan (1) Gram negative septicemia: would continue current abx. suspect wound as source as no other clear source apparent at this time. continue wound care. would suggest 21 days total, if dapto too expensive for snf, can change to po amox 500mg tid. Subjective pt afebrile, tolerating abx remains on dapto and ertapenem. wbc4, creat 1.1. wound culture from 11/17 growing E.faecalis, fatima sensitive. blood culture growing ESBL E. coli, repeat negative. Results & Data Vital Signs (Past 12 Hours) Vital Signs Temp Pulse Pulse Pulse Resp BP BP 11/21/19 09:03 62 11/21/19 08:33 37.0 C 54 L 20 178/69 H 11/21/19 02:37 36.6 C 56 L 19 113/58 L 11/21/19 00:32 57 L Pulse Ox 11/21/19 09:03 11/21/19 08:33 94 11/21/19 02:37 91 11/21/19 00:32 Laboratory Results Microbiology 11/19/19 09:53 Blood Aerobic Blood Culture - Preliminary No growth in Aerobic bottle after 48 hours. 11/19/19 09:53 Blood Anaerobic Blood Culture - Preliminary No growth in Anaerobic bottle after 48 hours. 11/19/19 10:04 Blood Aerobic Blood Culture - Preliminary No growth in Aerobic bottle after 48 hours. 11/19/19 10:04 Blood Anaerobic Blood Culture - Preliminary No growth in Anaerobic bottle after 48 hours. 11/19/19 10:00 Urine,Straight Cath Urine Culture - Final Three types of organisms present, all low counts probable skin maikol. No further identifications or sensitivities to follow. 11/18/19 06:40 Blood Aerobic Blood Culture - Preliminary No growth in Aerobic bottle after 48 hours. 11/18/19 06:40 Blood Anaerobic Blood Culture - Preliminary No growth in Anaerobic bottle after 48 hours. 11/18/19 06:51 Blood Aerobic Blood Culture - Preliminary No growth in Aerobic bottle after 48 hours. 11/18/19 06:51 Blood Anaerobic Blood Culture - Preliminary Escherichia coli ESBL PG Care Time/CCT Total # of Minutes Spent Total Time Spent with Patient: Total time spent is greater than 50% in coordination of care (as documented) at patient's floor/unit and/or counseling patient:
[2019-11-21] MEDS: MICONAZOLE NITRATE POWDER 43 GM EXT SCH (17:33)
[2019-11-21] MEDS: WARFARIN SOD 5 MG TAB PO SCH (17:35)
[2019-11-21] MEDS ORDERED: ALBUT/IPRATROP 3MG/0.5MG NEB 3 ML VIAL NEB PRN (20:52)
[2019-11-21] MEDS: ATORVASTATIN 40 MG TAB PO SCH (22:02)
--- NOTE | 2019-11-21 22:03 | Hospitalist Progress Note ---
Date of Service November 21, 2019 Assessment & Plan (1) Sepsis: Patient now afebrile, still no leukocytosis. Cultures reviewed. 1 out of 2 blood cultures growing gram-negative rods, now identified is ESBL E. coli, resistant to cefepime. Plan is to discharge with ertapenem and daptomycin if patient is able to obtain. (2) Wound, open, hip or thigh: follows with wound clinic, seen on 11/17 with some debridement and culture growing gram positive cocci wound RN following here. Infectious disease to see here. (3) DM type 2 (diabetes mellitus, type 2): DM diet, Novolog SS monitor for hypoglycemia (4) Chronic anticoagulation: Coumadin held past several nights, INR is now down to 2.6. Can restart dosing at 5 mg daily which is her outpatient regimen. Continue to follow INR. (5) Anemia: Hemoglobin 9.6 Continue to monitor. (6) Hypothyroid: Synthroid Subjective 64 yo female reports that she is feeling better today. She reports no new complaints. Review of Systems Review of Systems: All systems reviewed & are unremarkable except as noted in HPI & below Physical Exam Physical Exam: Constitutional: + morbidly obese and cooperative; no acute distress Neck: trachea midline, no thyromegaly Respiratory: normal respiratory effort Auscultation: lungs clear to auscultation bilaterally; no crackles, no rales, no rhonchi and no wheezes Limited secondary to habitus Cardiovascular: Rate/Rhythm: regular rate and regular rhythm Heart Sounds: normal S1, normal S2 and + murmur Limited secondary to habitus Gastrointestinal (Abdomen): Inspection/Auscultation: abdomen normal to inspection Percussion/Palpation: abdomen soft; abdomen nontender, no guarding, abdomen not rigid and no hepatosplenomegaly Musculoskeletal: Right hip with dressing, did not disturb Skin: no rashes, warm and dry Results & Data Vital Signs (Past 12 Hours) Vital Signs Temp Pulse Resp BP BP Pulse Ox 11/21/19 21:40 55 L 18 96 11/21/19 20:04 37 C 55 L 18 123/73 98 11/21/19 15:15 37.0 C 54 L 20 135/59 L 97 11/21/19 12:35 36.5 C 63 20 132/84 96 PG Care Time/CCT Total # of Minutes Spent Total Time Spent with Patient: Total time spent is greater than 50% in coordination of care (as documented) at patient's floor/unit and/or counseling patient: (1) DM type 2 (diabetes mellitus, type 2) Diabetes mellitus complication status: without complication Diabetes mellitus snf insulin use: with termite inspector use Qualified Code(s): E11.9 - Type 2 diabetes mellitus without complications; Z79.4 - [facility] (current) use of insulin (2) Hypothyroid Hypothyroidism type: unspecified Qualified Code(s): E03.9 - Hypothyroidism, unspecified (3) Sepsis Sepsis acute organ dysfunction status: unspecified Sepsis type: sepsis due to unspecified organism Qualified Code(s): A41.9 - Sepsis, unspecified organism
[2019-11-21] MEDS: LEVOTHYROXINE SODIUM 112 MCG TABLET PO SCH (22:07)
[2019-11-22] MEDS: DAPTOmycin 375 MG in SYRINGE 0 ML IV SCH (00:34)
[2019-11-22] MEDS: INSULIN ASPART 100 UNITS/ML 3 ML PEN SC SCH ×2 (08:39→13:19)
[2019-11-22] MEDS: FLUTICASONE/SALMETEROL 250/50 (ADVAIR) 14 PUFF/1 INHALER INH SCH (08:39)
[2019-11-22] MEDS: METOPROLOL TARTRATE 25 MG TAB PO SCH (08:40)
[2019-11-22] MEDS: CEROVITE ADV FORMULA TAB PO SCH (08:40)
[2019-11-22] MEDS: GABAPENTIN 600 MG TAB PO SCH ×2 (08:41→13:18)
[2019-11-22] MEDS: LACTOBACILLUS ACIDOPHILUS (FLORANEX) TAB PO SCH (08:41)
[2019-11-22] MEDS: MAGNESIUM OXIDE 400 MG TAB PO SCH (08:42)
[2019-11-22] MEDS: ASPIRIN 81 MG ECTAB PO SCH (08:42)
[2019-11-22] MEDS: MONTELUKAST SODIUM 10 MG TABLET PO SCH (08:42)
[2019-11-22] MEDS: DOCUSATE SODIUM/SENNA 50/8.6MG TAB PO SCH (08:43)
[2019-11-22] MEDS: AMIODARONE 200 MG TAB PO SCH (08:43)
[2019-11-22] MEDS: FUROSEMIDE 40 MG TAB PO SCH ×2 (08:44→16:17)
[2019-11-22] MEDS: ERTAPENEM SODIUM 1,000 MG in SODIUM CHLORIDE 0.9% 50 ML IV SCH (08:57)
[2019-11-22] MEDS ORDERED: METFORMIN HCL ER 500 MG TABCR PO STA (14:02)
[2019-11-22] MEDS: MICONAZOLE NITRATE POWDER 43 GM EXT SCH (16:15)
[2019-11-22] MEDS: WARFARIN SOD 5 MG TAB PO SCH (16:16)
[2019-11-22] MEDS ORDERED: METFORMIN HCL ER 500 MG TABCR PO SCH (21:00)
--- NOTE | 2019-11-28 13:29 | Discharge Summary ---
Date of Service November 22, 2019 Admission HPI Per Admitting Provider 64 yo female who is at [facility], recently discharged on 11/01 after hospitalization for acute on chronic respiratory failure, wound cellulitis that was positive for MRSA and Pseudomonas. She completed treatment for the cellulitis with PO antibiotics on 11/08/19. She reports that she was feeling really well the past two weeks since discharge. She was eating well, breathing normally. She developed a fever last night, no other symptoms except some shortness of breath. She did not have a cough, no sputum production. She denies having abdominal pain. Eating well. No dysuria that she noticed. [facility] sent her to the ED due to the fever and dyspnea. Her breathing quickly improved with a single breathing treatment. CXR did not show signs of pneumonia. WBC was normal at 10k and influenza negative. INR was elevated at 5.1. Cr noted to be at baseline of 1.5. Pt complains of constipation for a few days, she feels like she has a very hard stool that won't pass. She got a dose of Cefepime in the ED, admission requested. Principal Diagnosis sepsis Discharge Exam Constitutional: + morbidly obese and cooperative; no acute distress Neck: trachea midline, no thyromegaly Respiratory: normal respiratory effort Auscultation: lungs clear to auscultation bilaterally; no crackles, no rales, no rhonchi and no wheezes Limited secondary to habitus Cardiovascular: Rate/Rhythm: regular rate and regular rhythm Heart Sounds: normal S1, normal S2 and + murmur Limited secondary to habitus Gastrointestinal (Abdomen): Inspection/Auscultation: abdomen normal to inspection Percussion/Palpation: abdomen soft; abdomen nontender, no guarding, abdomen not rigid and no hepatosplenomegaly Musculoskeletal: Right hip with dressing, did not disturb Skin: no rashes, warm and dry Discharge Data Allergies Allergy/AdvReac Type Severity Reaction Status Date / Time Iodinated Contrast Media Allergy Intermediate HIVES Verified 11/24/19 11:13 latex Allergy Unknown LOW LEVEL Verified 11/24/19 11:13 LATEX ALLERGY Quinolones Allergy Unknown DR HICKS Verified 11/24/19 11:13 ASKED THAT ALLERGY BE ADDED 07/31/08 Sulfa (Sulfonamide Allergy Unknown HIVES Verified 11/24/19 11:13 Antibiotics) vancomycin Allergy Unknown HIVES, GI Verified 11/24/19 11:13 UPSET pineapple Allergy Verified 11/24/19 11:13 Consultations 11/18/19 07:44 ED Decision to Admit Stat 11/18/19 09:47 Consult Case Management - Discharge Planning Routine 11/18/19 23:34 Consult Infectious Diseases Routine Hospital Course (1) Sepsis: Patient now afebrile, still no leukocytosis. Cultures reviewed. 1 out of 2 blood cultures growing gram-negative rods, now identified is ESBL E. coli, resistant to cefepime. Plan is to discharge with ertapenem and daptomycin. would suggest 21 days total (2) Wound, open, hip or thigh: follows with wound clinic, seen on 11/17 with some debridement and culture growing gram positive cocci wound RN following here. Infectious disease to see here. (3) DM type 2 (diabetes mellitus, type 2): DM diet, Novolog SS monitor for hypoglycemia (4) Chronic anticoagulation: Coumadin held past several nights, INR is now down to 2.6. Can restart dosing at 5 mg daily which is her outpatient regimen. Continue to follow INR as outpatient (5) Anemia: Hemoglobin 9.6 Continue to monitor. (6) Hypothyroid: Synthroid Total Time Total Time Spent Total Time Spent (In Minutes): 32 Total Time Includes: Examination of the Patient, Discharge Planning and Medication Reconciliation Discharge Plan Discharge Items Patient Disposition: Transfer Long-Term Fac Reason For Visit: DYSPNEA,FEVER Discharge Diagnosis: wound infection Activity: Resume your previous activity Non-emergency contact: Primary Care Provider Call non-emergency contact if: you have any medication questions Follow-up/Referrals: Briseida Killian [Primary Care Provider] - Diet: Carb Consistent or DM2 Addtl Attending Provider Instructions: You have been hospitalized for an acute medical problem. During your stay at [facility], we have made an effort to correct the problem that brought you to the hospital while keeping you as comfortable as possible. Medications were used to bring your condition under control and your discharge instructions will include directions for any medications you should take after leaving the hospital. Please make sure you see your Primary Care Provider as part of your follow up plan. Continue wound care clinic in 1-2 weeks Continue wound care Ok to hold nasal cannula if 02 sat above 90% during daytime. Continue night time 02 sat. Pending Studies at Discharge: No Stand-Alone Forms: My [facility] Skilled Items Patient informed of condition?: No DNR: No Discharge Level of Care: Skilled Communicable Disease: Yes Discharge Prognosis: Stable Lines: Mid-Line Urinary Catheter: No Medications and DC Order Prescriptions: New Desenex 2 % Powder 1 applic EXT PRN Qty: 0 RF: 0 daptomycin 500 mg recon soln 375 mg IV DAILY Qty: 17 RF: 0 ertapenem 1 gram recon soln 1 gm IV DAILY Qty: 18 RF: 0 Continued gabapentin 600 mg tablet 600 mg PO TID RF: 0 fluticasone propionate 50 mcg/actuation spray,suspension 2 spray Intranasal HS RF: 0 atorvastatin 40 mg tablet 40 mg PO HS RF: 0 aspirin 81 mg Tablet,Delayed Release (Dr/Ec) 81 mg PO DAILY RF: 0 magnesium oxide 400 mg (241.3 mg magnesium) Tablet 400 mg PO QAM RF: 0 multivitamin with minerals [Multiple Vitamin-Minerals] Tablet 1 tab PO QAM RF: 0 furosemide [Lasix] 40 mg tablet 40 mg PO BID RF: 0 sitagliptin 50 mg tablet 50 mg PO DAILY Qty: 30 RF: 0 metformin 500 mg tablet extended release 24 hr 500 mg PO BID Qty: 60 RF: 0 metoprolol tartrate 25 mg tablet 25 mg PO BID Qty: 60 RF: 0 warfarin 5 mg tablet 5 mg PO DAILY Qty: 30 RF: 0 fluticasone propion-salmeterol [Advair Diskus] 250-50 mcg/dose blister with device 1 inh INHALATION BID RF: 0 acetaminophen 325 mg Tablet 650 mg PO Q6H PRN (Reason: Fever) RF: 0 furosemide 20 mg Tablet 20 mg PO DAILY PRN (Reason: Weight Gain) RF: 0 amiodarone 200 mg tablet 200 mg PO QAM RF: 0 levothyroxine 112 mcg tablet 112 mcg PO QPM RF: 0 Lactinex 1 million cell Tablet,Chewable 1 tab PO DAILY RF: 0 montelukast 10 mg Tablet 10 mg PO QAM RF: 0 sennosides-docusate sodium [Senokot-S] 8.6-50 mg Tablet 1 tab-cap PO BID RF: 0 albuterol sulfate [Ventolin HFA] 90 mcg/actuation HFA aerosol inhaler 2 puff INHALATION Q4 PRN (Reason: Shortness Of Breath Or Wheezing) RF: 0 ipratropium-albuterol 0.5 mg-3 mg(2.5 mg base)/3 mL Solution For Nebulization 3 ml INHALATION UD PRN (Reason: Shortness Of Breath Or Wheezing) RF: 0 insulin lispro [Humalog U-100 Insulin] 100 unit/mL Solution 1 sliding scale dose SUBCUT USEASDIRECTD PRN (Reason: elevated bs) RF: 0 oxycodone 5 mg tablet 5 mg PO TID PRN (Reason: pain) Qty: 10 RF: 0 Discontinued amoxicillin 500 mg capsule 500 mg PO tid Qty: 30 RF: 0 Discharge Orders: Discharge Order (Routine); Ordered 11/22/19 Ordered By: Sea Benedict Admission Data Admit Date/Time: 11/20/19 10:10 Attending Provider: Sea Benedict Admit Provider: Kalyan Valderrama Primary Care Provider: Briseida Killian Other Providers: Ansley French Other Interventions: Discharge Summary Assessment (RN) Last Done: 11/22/19 15:51 DC Date/Time DO NOT enter until pt leaves facility: 11/22/19 17:46
== END 2019-11-22 17:46 | DRG 872 ==
LOC: 2N 06:30 → ED 06:30 → SUATTDRO 08:33 → 2N 09:19 → SUATTDRO 11-20 10:10

== ENCOUNTER 2020-01-12 22:07 | Inpatient (IN) ==
[2020-01-12] MEDS ORDERED: ALBUTEROL 0.083% NEBU SOLN 3 ML VIAL ONE (22:18)
[2020-01-12] MEDS ORDERED: ALBUT/IPRATROP 3MG/0.5MG NEB 3 ML VIAL ONE (22:18)
[2020-01-12] MEDS ORDERED: SODIUM CHLORIDE 0.9% 1000ML 1,000 ML IV SCH (22:30)
[2020-01-12] MEDS ORDERED: ALBUT/IPRATROP 3MG/0.5MG NEB 3 ML VIAL INH STA (22:30)
[2020-01-12] MEDS ORDERED: CEFEPIME 2,000 MG/20 ML VIAL IV STA (22:30)
--- NOTE | 2020-01-12 22:51 | XRay Report ---
XR chest 1V portable HISTORY: 64 years-old Female Dyspnea acute shortness of breath COMPARISON: Chest radiograph 11/18/2019 TECHNIQUE: Portable AP view of the chest FINDINGS: Cardiac silhouette is enlarged. Pulmonary vascular congestion with interstitial coarsening. Hazy ill- defined right perihilar and bibasilar densities. No pneumothorax or large pleural effusion. Mild blun ting of the left costophrenic angle. Degenerative changes of the right shoulder and spine. Left shoul david total joint arthroplasty. Unchanged right pectoral [id number] catheter. IMPRESSION: 1. Cardiomegaly with pulmonary edema. 2. Asymmetric right perihilar and bibasilar densities may reflect atelectasis, asymmetric pulmonary e jaymie or superimposed pneumonitis. 3. Probable trace left pleural effusion. ACT 112: Negative or not required by law. The above report was generated using voice recognition software. It may contain grammatical, syntax o r spelling errors. Results electronically sent 01/12/2020 10:50 PM to: Troy Paul DO Electronically signed by: Silver Bateman M.D. 01/12/2020 10:50 PM
--- NOTE | 2020-01-12 23:04 | Emergency Department Note ---
Entered by Anne Joel acting as a scribe for Troy Paul DO History of Present Illness General Chief complaint: Shortness of Breath/Dyspnea Time Seen by Provider: 01/12/20 22:14 Source: patient and other (nursing staff) Mode of arrival: EMS Limitations: patient cooperation History of Present Illness Onset (ago): hour(s) (a few) Location: chest Pain Consistency: + other (worsening) Current Pain Intensity: 0 Quality: + other (SOB) Treatments prior to arrival: other (Albuterol, Duoneb, Tylenol) The patient is a 64 year old female who presents to the Emergency Room with complaints of worsening SOB that began a few hours ago. Per the nursing staff, the patient was diagnosed with influenza 2 days ago, and she received Tamiflu. The nursing staff notes that the patient had a fever of 101.5 today at her custodial residence, [facility]. Per the nursing staff, the patient received Tylenol and a Duoneb at [facility]. The nursing staff states that the patient had an oxygen saturation in the 60s while she was on her normal 2 L NC at her residence. Per the nursing staff, the patient was transported to the hospital via EMS, and she was given Albuterol and a Duoneb by EMS. The patient denies any current pain. HPI limited secondary to patient cooperation. Home Medications Home Medications Medication Instructions Recorded Confirmed Type aspirin 81 mg PO DAILY 08/02/18 01/12/20 History atorvastatin 40 mg PO HS 08/02/18 01/12/20 History fluticasone propionate 2 spray INTRANASAL HS 08/02/18 01/12/20 History gabapentin 600 mg PO TID 08/02/18 01/12/20 History magnesium oxide 400 mg PO QAM 08/02/18 01/12/20 History multivitamin with minerals 1 tab PO QAM 08/02/18 01/12/20 History [Multiple Vitamin-Minerals] Lactinex 1 tab PO DAILY 10/13/19 01/12/20 History albuterol sulfate [Ventolin HFA] 2 puff INHALATION Q4 PRN 10/13/19 01/12/20 History insulin lispro [Humalog U-100 1 sliding scale dose SUBCUT 10/13/19 01/12/20 Hi story Insulin] USEASDIRECTD PRN ipratropium-albuterol 3 ml INHALATION UD PRN 10/13/19 01/12/20 History montelukast 10 mg PO QAM 10/13/19 01/12/20 History sennosides-docusate sodium 1 tab-cap PO BID 10/13/19 01/12/20 History [Senokot-S] oxycodone 5 mg PO TID PRN #10 tab 10/19/19 01/12/20 Rx furosemide [Lasix] 40 mg PO BID 10/23/19 01/12/20 History sitagliptin 50 mg PO DAILY #30 tab 11/01/19 01/12/20 Rx warfarin 5 mg PO DAILY #30 tab 11/01/19 01/12/20 Rx acetaminophen 650 mg PO Q6H PRN 11/18/19 01/12/20 History amiodarone 200 mg PO QAM 11/18/19 01/12/20 History fluticasone propion-salmeterol 1 inh INHALATION BID 11/18/19 01/12/20 History [Advair Diskus] lisinopril 20 mg tablet 20 mg PO DAILY #30 tab 12/21/19 01/12/20 Rx amoxicillin 500 mg PO BID 01/12/20 01/12/20 History amoxicillin-pot clavulanate 1 tab PO BID 01/12/20 01/12/20 History [Augmentin] bisacodyl [Dulcolax (bisacodyl)] 10 mg HI DAILY PRN 01/12/20 01/12/20 History clotrimazole 1 applic TOPICAL Q8H 01/12/20 01/12/20 History ferrous sulfate 325 mg PO DAILY 01/12/20 01/12/20 History levothyroxine 125 mcg PO DAILY 01/12/20 01/12/20 History magnesium hydroxide [Milk of 30 ml PO DAILY PRN 01/12/20 01/12/20 History Magnesia] metformin 500 mg PO BID 01/12/20 01/12/20 History metoprolol tartrate 25 mg PO Q12H 01/12/20 01/12/20 History Allergies Allergy/AdvReac Type Severity Reaction Status Date / Time Iodinated Contrast Media Allergy Intermediate HIVES Verified 01/12/20 23:02 latex Allergy Unknown LOW LEVEL Verified 01/12/20 23:02 LATEX ALLERGY pineapple Allergy Unknown Unknown Verified 01/12/20 23:[address] HICKS Verified 01/12/20 23:02 ASKED THAT ALLERGY BE ADDED 07/31/08 Sulfa (Sulfonamide Allergy Unknown HIVES Verified 01/12/20 23:02 Antibiotics) vancomycin Allergy Unknown HIVES, GI Verified 01/12/20 23:02 UPSET Past Med/Surg History Medical History A-fib Acute and chronic respiratory failure with hypoxia Acute kidney failure Anemia Asthma (Chronic) CHF exacerbation (Acute) Chronic joint pain (Acute) CVA (cerebral vascular accident) (Acute) DM type 2 (diabetes mellitus, type 2) (Chronic) History of left shoulder replacement (Acute) Hypertension (Chronic) Hypothyroid Left cervical radiculopathy (Acute) Morbid obesity with body mass index of 50 or higher (Chronic) Osteoarthritis (Chronic) Pneumonia Proteinuria Respiratory failure with hypoxia and hypercapnia (Acute) Sleep apnea (Chronic) "on cpap" Stroke-like symptoms Volume overload (Acute) Wound cellulitis Surgical History Status post bilateral total hip replacement (Chronic) Family History Other Family history non-contributory Social History Preferred Language: Mohawk Communication Ability: Effective Home Teaching Grades 7 And 8 Teacher Required: No Beliefs That Will Affect Care: None marital status: Single Current Living Situation: Custodial Current Living Situation Comment: [facility] Feels Safe at Home: Yes Smoking Status: Unknown if ever smoked Hx Alcohol Use: No Hx Substance Use: No Review of Systems See HPI for pertinent positives & negatives. Other ( ROS limited secondary to patient cooperation.) Physical Exam Vital Signs Vital Signs - 24 hr 01/12/20 22:18 01/12/20 22:34 01/12/20 22:40 Temperature 37.1 C Temperature Source Oral Pulse Rate 69 Pulse Rate [Finger] 69 Pulse Rate from SpO2 Sensor Respiratory Rate 12 Respiratory Effort / Characteristics Accessory Muscle Use Labored Respiratory Depth Retractive Respiratory Pattern Regular Blood Pressure 159/133 H Blood Pressure [Right Arm] 159/133 H 92/56 L Blood Pressure Mean 141 Blood Pressure Mean [Right Arm] 141 68 Pulse Oximetry 80 L Oxygen Delivery Method Nasal Cannula Oxymask Oxygen Flow Rate 2 Sepsis Recent Fever Within 48 Hours No Sepsis New/Unexplained Change in Mental Status No Sepsis Action Taken by Nursing No Action Required 01/12/20 22:47 01/12/20 23:07 01/12/20 23:31 Temperature Temperature Source Pulse Rate 70 72 Pulse Rate [Finger] 68 Pulse Rate from SpO2 Sensor 70 72 Respiratory Rate 20 21 29 H Respiratory Effort / Characteristics Spontaneous Labored Respiratory Depth Respiratory Pattern Blood Pressure Blood Pressure [Right Arm] Blood Pressure Mean Blood Pressure Mean [Right Arm] Pulse Oximetry 96 94 94 Oxygen Delivery Method Oxymask Oxymask Oxymask Oxygen Flow Rate 8 8 8 Sepsis Recent Fever Within 48 Hours Sepsis New/Unexplained Change in Mental Status Sepsis Action Taken by Nursing 01/13/20 00:00 Temperature Temperature Source Pulse Rate 71 Pulse Rate [Finger] Pulse Rate from SpO2 Sensor 71 Respiratory Rate 22 Respiratory Effort / Characteristics Respiratory Depth Respiratory Pattern Blood Pressure Blood Pressure [Right Arm] 90/50 L Blood Pressure Mean Blood Pressure Mean [Right Arm] 63 Pulse Oximetry 95 Oxygen Delivery Method Oxymask Oxygen Flow Rate 8 Sepsis Recent Fever Within 48 Hours Sepsis New/Unexplained Change in Mental Status Sepsis Action Taken by Nursing CONSTITUTIONAL/VITAL SIGNS: Reviewed / noted above. GENERAL: Non-toxic in appearance. Morbid obesity. INTEGUMENTARY: Warm, dry, and [place]. HEAD: Normocephalic. EYES: without scleral icterus or trauma. ENT/OROPHARYNX: clear and moist. LYMPHADENOPATHY/NECK: Is supple without lymphadenopathy or meningismus. RESPIRATORY: Diminished breath sounds bilaterally with bilateral wheezes. CARDIOVASCULAR: Regular rate and rhythm. GI/ABDOMEN: Soft and nontender. No organomegaly or pulsatile mass. No rebound or guarding. Normal bowel sounds. Chronic appearing wound in the right lower abdomen. EXTREMITIES: Warm and well perfused. BACK: No CVA tenderness. NEUROLOGICAL: Intact without focal deficits. She is awake but sluggish to respond. Oriented x 3. PSYCHIATRIC: normal affect. MUSCULOSKELETAL: Normally developed with good muscle tone. Procedures ABG Interpretation ABG Interpretation 1: ABG Results: 7.35/44/84 using 10 L of oxygen. Interpretation: normal Course Course 2218: The patient was evaluated in room B11B. A complete history and physical exam was performed. 5257: I spoke with Dr. Willis, [facility] hospitalist, about the patients case. He will further evaluate the patient. 0015: I reassessed the patient, and she was stable. Administered Medications Sodium Chloride (Nss 1000ml) 500 mls @ 999 mls/hr IV .Q31M ONE Stop: 01/13/20 00:33 Last Admin: 01/13/20 00:15 Dose: 999 mls/hr Documented by: [id number] Discontinued Medications Albuterol (Duoneb) 12 ml INH ONE STA Stop: 01/12/20 22:31 Last Admin: 01/12/20 22:46 Dose: 12 ml Documented by: [id number] Sodium Chloride (Nss 1000ml) 1,000 mls @ 999 mls/hr IV .Q1H1M CASSANDRA Stop: 01/12/20 23:30 Last Infusion: 01/12/20 23:48 Dose: 0 mls/hr Documented by: [id number] Admin: 01/12/20 23:01 Dose: 999 mls/hr Documented by: [id number] Cefepime HCl (Maxipime) 2,000 mg in 20 mls @ 5 mls/min IV NOW STA; Protocol Stop: 01/12/20 22:33 Last Admin: 01/12/20 23:01 Dose: 5 mls/min Documented by: [id number] Critical Care Time Critical Care Time: Yes Total Critical Care Time: 35 I have personally spent 35 minutes of critical care time in the direct management of this patient. This includes bedside care, interpretation of diagnostic studies, and testing, discussion with consultants, patient, and fa [facility]ik[facility] members, and other required patient management activities. This 35 minutes is in excess of all separately billable procedures. Medical Decision Making Differential Diagnosis Etiologies such as infections, reactive airway disease, COPD, pneumonia, pleural effusion, pulmonary edema, ARDS, pneumothorax, CHF, cardiac ischemia, cardiac tamponade, dysrhythmia, anemia, pulmonary embolism, musculoskeletal, gastrointestinal process, as well as others were entertained. Medical Records Attestation: I reviewed the patient's medical records. Home Medications Current Medication List: was personally reviewed by me Laboratory Data Attestation: I reviewed the patient's lab results. Result diagrams: 01/12/20 22:56 01/12/20 22:56 Lab Results 01/12/20 01/12/20 01/12/20 Range/Units 22:35 22:54 22:54 WBC (4.8-10.8) K/uL RBC (4.2-5.4) M/uL Hgb (12.0-16.0) g/dL Hct (37-47) % MCV (80-100) fL MCH (25-34) pg MCHC (32-36) g/dL RDW Std Deviation (36.4-46.3) fL RDW Coeff of Mehnaz (11.5-14.5) % Plt Count (130-400) K/uL MPV (7.4-10.4) fL Immature Gran % (Auto) % Neut % (Auto) % Lymph % (Auto) % Hart % (Auto) % Eos % (Auto) % Baso % (Auto) % Immature Gran # (Auto) (0.00-0.02) K/uL Neut # (Auto) (1.4-6.5) K/uL Lymph # (Auto) (1.2-3.4) K/uL Hart # (Auto) (0.11-0.59) K/uL Eos # (Auto) (0-0.5) K/uL Baso # (Auto) (0-0.2) K/uL Absolute Nucleated RBC (0-0) K/uL Nucleated RBC % (auto) % PT (9.0-12.0) Seconds INR (0.9-1.1) APTT (21.0-31.0) Seconds PTT Ratio ABG pH 7.35 (7.35-7.45) ABG pCO2 44 (35-46) mmHg ABG pO2 84 (80-95) mmHg ABG HCO3 24 (19-24) mmol/L ABG O2 Saturation 95.4 H (90-95) % ABG Base Excess -1.9 (-9-1.8) mEq/L Darrel Test Pos (Pos) Barometric Pressure 730.3 mm/Hg Oxygen Given 8 LITERS Sodium (136-145) mmol/L Potassium (3.5-5.1) mmol/L Chloride (98-107) mmol/L Carbon Dioxide (21-32) mmol/L Anion Gap (3-11) BUN (7-18) mg/dl Creatinine (0.6-1.2) mg/dl Est Cr Clr Drug Dosing ml/min Est GFR ( Amer) Est GFR (Non-Af Amer) BUN/Creatinine Ratio (10-20) Glucose (70-99) mg/dl Lactate 1.1 (0.4-2.0) mmol/L Calcium (8.5-10.1) mg/dl Magnesium (1.8-2.4) mg/dl Total Bilirubin (0.2-1) mg/dl AST (15-37) U/L ALT (12-78) U/L Alkaline Phosphatase (45-117) U/L CK-MB (CK-2) (0.5-3.6) ng/ml Troponin I (0-0.045) ng/ml NT-Pro-B Natriuret Pep (0-900) pg/ml Total Protein (6.4-8.2) gm/dl Albumin (3.4-5.0) gm/dl Globulin (2.5-4.0) gm/dl Albumin/Globulin Ratio (0.9-2) Influenza Type A (PCR) Pos for Influ A A* (Neg) Influenza Type B (PCR) Neg for Influ B (Neg) 01/12/20 01/12/20 01/12/20 Range/Units 22:56 22:56 22:56 WBC 11.70 H (4.8-10.8) K/uL RBC 3.22 L (4.2-5.4) M/uL Hgb 8.6 L (12.0-16.0) g/dL Hct 27.3 L (37-47) % MCV 84.8 (80-100) fL MCH 26.7 (25-34) pg MCHC 31.5 L (32-36) g/dL RDW Std Deviation 55.6 H (36.4-46.3) fL RDW Coeff of Mehnaz 18.3 H (11.5-14.5) % Plt Count 255 (130-400) K/uL MPV 9.5 (7.4-10.4) fL Immature Gran % (Auto) 0.3 % Neut % (Auto) 88.6 % Lymph % (Auto) 6.3 % Hart % (Auto) 4.6 % Eos % (Auto) 0.0 % Baso % (Auto) 0.2 % Immature Gran # (Auto) 0.04 H (0.00-0.02) K/uL Neut # (Auto) 10.36 H (1.4-6.5) K/uL Lymph # (Auto) 0.74 L (1.2-3.4) K/uL Hart # (Auto) 0.54 (0.11-0.59) K/uL Eos # (Auto) 0.00 (0-0.5) K/uL Baso # (Auto) 0.02 (0-0.2) K/uL Absolute Nucleated RBC 0.06 H (0-0) K/uL Nucleated RBC % (auto) 0.5 % PT 24.5 H (9.0-12.0) Seconds INR 2.6 H (0.9-1.1) APTT 40.6 H (21.0-31.0) Seconds PTT Ratio 1.5 ABG pH (7.35-7.45) ABG pCO2 (35-46) mmHg ABG pO2 (80-95) mmHg ABG HCO3 (19-24) mmol/L ABG O2 Saturation (90-95) % ABG Base Excess (-9-1.8) mEq/L Darrel Test (Pos) Barometric Pressure mm/Hg Oxygen Given Sodium 131 L (136-145) mmol/L Potassium 5.1 (3.5-5.1) mmol/L Chloride 95 L (98-107) mmol/L Carbon Dioxide 23 (21-32) mmol/L Anion Gap 13.0 H (3-11) BUN 83 H (7-18) mg/dl Creatinine 4.64 H* (0.6-1.2) mg/dl Est Cr Clr Drug Dosing 17.5 ml/min Est GFR ( Amer) 10.7 Est GFR (Non-Af Amer) 9.2 BUN/Creatinine Ratio 17.8 (10-20) Glucose 171 H (70-99) mg/dl Lactate (0.4-2.0) mmol/L Calcium 7.9 L (8.5-10.1) mg/dl Magnesium 2.7 H (1.8-2.4) mg/dl Total Bilirubin 0.3 (0.2-1) mg/dl AST 48 H (15-37) U/L ALT 111 H (12-78) U/L Alkaline Phosphatase 91 (45-117) U/L CK-MB (CK-2) 2.4 (0.5-3.6) ng/ml Troponin I 0.045 (0-0.045) ng/ml NT-Pro-B Natriuret Pep 5346 H (0-900) pg/ml Total Protein 6.8 (6.4-8.2) gm/dl Albumin 2.1 L (3.4-5.0) gm/dl Globulin 4.7 H (2.5-4.0) gm/dl Albumin/Globulin Ratio 0.4 L (0.9-2) Influenza Type A (PCR) (Neg) Influenza Type B (PCR) (Neg) Imaging Data Radiologist's Impression: Radiology results as stated below per my review and the radiologist's interpretation: XR chest 1V portable HISTORY: 64 years-old Female Dyspnea acute shortness of breath COMPARISON: Chest radiograph 11/18/2019 TECHNIQUE: Portable AP view of the chest FINDINGS: Cardiac silhouette is enlarged. Pulmonary vascular congestion with interstitial coarsening. Hazy ill-defined right perihilar and bibasilar densities. No pneumothorax or large pleural effusion. Mild blunting of the left costophrenic angle. Degenerative changes of the right shoulder and spine. Left shoulder total joint arthroplasty. Unchanged right pectoral [id number] catheter. IMPRESSION: 1. Cardiomegaly with pulmonary edema. 2. Asymmetric right perihilar and bibasilar densities may reflect atelectasis, asymmetric pulmonary edema or superimposed pneumonitis. 3. Probable trace left pleural effusion. ACT 112: Negative or not required by law. The above report was generated using voice recognition software. It may contain grammatical, syntax or spelling errors. Results electronically sent 01/12/2020 10:50 PM to: Troy Paul DO Electronically signed by: Silver Bateman M.D. 01/12/2020 10:50 PM ECG Data Attestation: I personally reviewed and interpreted this ECG as follows: Indication: + SOB/dyspnea Rate (beats per minute): 68 Rhythm: + normal sinus ECG Intervals/blocks: + First degree AV block ECG ST segments: no ST elevation ECG Findings: no PVCs Blood Pressure Blood Pressure Findings: Elevated blood pressure Blood Pressure Disposition: further management by hospitalist BILLIE Lema This is a 64-year-old female who presents to the ED with a chief complaint of shortness of breath. The patient was found to be hypoxic at [facility]. She was diagnosed with the flu on Thursday and finished a course of Tamiflu. The patient has increased shortness of breath over the last few days. Today she had a fever of 101.5. The patient was found to be hypoxic on 2 L [facility] but 60% for EMS. EMS provided is a DuoNeb treatment and a albuterol treatment. The patient was found to be hypoxic with 80% saturations here on her 2 L. She was placed on oxygen mask. Her exam reveals diminished breath sounds bilaterally. She has a chronic appearing wound in the right lower abdominal region. The patient has a chest x-ray that is suggestive of pneumonia in the right side. Radiologist suggests congestive heart failure versus atelectasis versus pneumonitis. The patient symptoms are more consistent with a pneumonia. ABG analysis reveals a normal acid-base status with a normal PCO2. Hemoglobin is baseline at 8.6 today. INR is 2.6. She is on Coumadin. BUN is 83 and creatinine is 4.6. This is elevated over the patient's baseline of 1. The patient's potassium was normal. The patient was given a liter and a half IV fluids. Based on her ideal body weight, this would meet sepsis protocol. She was given IV cefepime. Initial lactic acid level was normal. She was given a 1 hour DuoNeb treatment. She was not given additional Tamiflu as she completed a 5-day course of Tamiflu a couple of days ago. A Heard catheter was placed. The patient does produce urine. Impression & Plan Hypoxia, Acute renal failure (ARF), Bilateral wheezing, Influenza A, Pneumonia Discharge Plan Visit Data Chief Complaint: Shortness of Breath/Dyspnea ED Provider: Troy Paul Discharge Problem: Hypoxia, Acute renal failure (ARF), Bilateral wheezing, Influenza A, Pneumonia Forms Stand Alone Forms: [facility] Prescriptions Prescriptions: No Action lisinopril 20 mg tablet 20 mg PO DAILY Qty: 30 RF: 2 gabapentin 600 mg tablet 600 mg PO TID RF: 0 fluticasone propionate 50 mcg/actuation spray,suspension 2 spray Intranasal HS RF: 0 atorvastatin 40 mg tablet 40 mg PO HS RF: 0 aspirin 81 mg Tablet,Delayed Release (Dr/Ec) 81 mg PO DAILY RF: 0 magnesium oxide 400 mg (241.3 mg magnesium) Tablet 400 mg PO QAM RF: 0 multivitamin with minerals [Multiple Vitamin-Minerals] Tablet 1 tab PO QAM RF: 0 furosemide [Lasix] 40 mg tablet 40 mg PO BID RF: 0 sitagliptin 50 mg tablet 50 mg PO DAILY Qty: 30 RF: 0 warfarin 5 mg tablet 5 mg PO DAILY Qty: 30 RF: 0 fluticasone propion-salmeterol [Advair Diskus] 250-50 mcg/dose blister with device 1 inh INHALATION BID RF: 0 acetaminophen 325 mg Tablet 650 mg PO Q6H PRN (Reason: Fever) RF: 0 amiodarone 200 mg tablet 200 mg PO QAM RF: 0 Lactinex 1 million cell Tablet,Chewable 1 tab PO DAILY RF: 0 montelukast 10 mg Tablet 10 mg PO QAM RF: 0 sennosides-docusate sodium [Senokot-S] 8.6-50 mg Tablet 1 tab-cap PO BID RF: 0 albuterol sulfate [Ventolin HFA] 90 mcg/actuation HFA aerosol inhaler 2 puff INHALATION Q4 PRN (Reason: Shortness Of Breath Or Wheezing) RF: 0 ipratropium-albuterol 0.5 mg-3 mg(2.5 mg base)/3 mL Solution For Nebulization 3 ml INHALATION UD PRN (Reason: Shortness Of Breath Or Wheezing) RF: 0 insulin lispro [Humalog U-100 Insulin] 100 unit/mL Solution 1 sliding scale dose SUBCUT USEASDIRECTD PRN (Reason: elevated bs) RF: 0 oxycodone 5 mg tablet 5 mg PO TID PRN (Reason: pain) Qty: 10 RF: 0 magnesium hydroxide [Milk of Magnesia] 400 mg/5 mL Suspension 30 ml PO DAILY PRN (Reason: Constipation) RF: 0 metformin 500 mg Tablet 500 mg PO BID RF: 0 metoprolol tartrate 25 mg tablet 25 mg PO Q12H RF: 0 levothyroxine 125 mcg Tablet 125 mcg PO DAILY RF: 0 bisacodyl [Dulcolax (bisacodyl)] 10 mg Suppository 10 mg HI DAILY PRN (Reason: Constipation) RF: 0 ferrous sulfate 325 mg (65 mg iron) Tablet 325 mg PO DAILY RF: 0 amoxicillin-pot clavulanate [Augmentin] 875-125 mg Tablet 1 tab PO BID RF: 0 clotrimazole 1 % Cream 1 applic TOPICAL Q8H RF: 0 amoxicillin 500 mg Tablet 500 mg PO BID RF: 0 Referrals Referrals: [facility] [Primary Care Provider] - Discharge Problem: Acute renal failure (ARF) Qualifiers: Acute renal failure type: unspecified Qualified Code(s): N17.9 - Acute kidney failure, unspecified Pneumonia Qualifiers: Pneumonia type: due to unspecified organism Laterality: right Lung location: lower lobe of lung Qualified Code(s): J18.9 - Pneumonia, unspecified organism The scribe's documentation has been prepared under my direction and personally reviewed by me in its entirety. I confirm that the note above accurately reflects all work, treatment, procedures, and medical decision making performed by me.
[2020-01-12 23:05] LABS: Basophils # (auto) 0.02 K/uL (0-0.2); Basophils % (auto) 0.2 %; Hematocrit (blood only) 27.3 % (37-47); Hemoglobin 8.6 g/dL (12.0-16.0); Immature Granulocytes # (auto) 0.04 K/uL (0.00-0.02); Immature Granulocytes % (auto) 0.3 %; Lymphocytes # (auto) 0.74 K/uL (1.2-3.4); Lymphocytes % (auto) 6.3 %; Mean Corpuscular Hemoglobin 26.7 pg (25-34); Mean Corpuscular Hgb Conc 31.5 g/dL (32-36); Mean Corpuscular Volume 84.8 fL (80-100); Mean Platelet Volume 9.5 fL (7.4-10.4); Monocytes # (auto) 0.54 K/uL (0.11-0.59); Monocytes % (auto) 4.6 %; Neutrophils # (auto) 10.36 K/uL (1.4-6.5); Neutrophils % (auto) 88.6 %; Nucleated RBC # (auto) 0.06 K/uL (0-0); Nucleated RBC % (auto) 0.5 %; Platelet Count 255 K/uL (130-400); RDW Coefficient of Variation 18.3 % (11.5-14.5); RDW Standard Deviation 55.6 fL (36.4-46.3); Red Blood Count 3.22 M/uL (4.2-5.4)
[2020-01-12 23:07] LABS: Allen Test Pos (Pos); Base Excess ABG -1.9 mEq/L (-9-1.8); HCO3 ABG 24 mmol/L (19-24); Oxygen Saturation ABG 95.4 % (90-95); PCO2 ABG 44 mmHg (35-46); PO2 ABG 84 mmHg (80-95); pH ABG 7.35 (7.35-7.45)
[2020-01-12 23:16] LABS: INR 2.6 (0.9-1.1); Partial Thromboplastin Ratio 1.5; Partial Thromboplastin Time 40.6 Seconds (21.0-31.0); Prothrombin Time 24.5 Seconds (9.0-12.0)
[2020-01-12 23:19] LABS: Influenza B virus by PCR Neg for Influ B (Neg)
[2020-01-12 23:38] LABS: Alanine Aminotransferase 111 U/L (12-78); Albumin Globulin Ratio 0.4 (0.9-2); Albumin Level 2.1 gm/dl (3.4-5.0); Alkaline Phosphatase 91 U/L (45-117); Aspartate Aminotransferase 48 U/L (15-37); BUN Creatinine Ratio 17.8 (10-20); Bilirubin,Total 0.3 mg/dl (0.2-1); Blood Urea Nitrogen 83 mg/dl (7-18); Calcium 7.9 mg/dl (8.5-10.1); Carbon Dioxide 23 mmol/L (21-32); Chloride 95 mmol/L (98-107); Creatine Kinase MB 2.4 ng/ml (0.5-3.6); Creatinine Clr Calc Pharmacy 17.5 ml/min; Est GFR (African American) 10.7; Est GFR (Non-African American) 9.2; Globulin 4.7 gm/dl (2.5-4.0); Glucose 171 mg/dl (70-99); Magnesium 2.7 mg/dl (1.8-2.4); NT Pro B Type Natriuretic Pept 5346 pg/ml (0-900); Potassium 5.1 mmol/L (3.5-5.1); Sodium 131 mmol/L (136-145); Total Protein 6.8 gm/dl (6.4-8.2); Troponin I 0.045 ng/ml (0-0.045)
[2020-01-13] MEDS ORDERED: SODIUM CHLORIDE 0.9% 1000ML 500 ML IV ONE ×2 (00:03→06:23)
[2020-01-13] MEDS ORDERED: PIPERACILL/TAZOBAC CONSULT ACTIVE PRN (01:03)
[2020-01-13] MEDS ORDERED: LINEZOLID CONSULT ACTIVE PRN (01:03)
[2020-01-13 01:04] LABS: Appearance Urine Clear (Clear); Bacteria Urine Automated Negative (Negative); Bilirubin Urine Negative (Negative); Blood Urine Negative (Negative); Color Urine Yellow; Glucose Urine UA Negative (Negative); Ketones Urine Negative (Negative); Leukocyte Esterase Urine Negative (Negative); Nitrite Urine Negative (Negative); Protein Urine Trace (Negative); RBC Urine Automated 0-4 /hpf (0-4); Urobilinogen Urine Negative (Negative)
[2020-01-13] MEDS ORDERED: LINEZOLID 600 MG/300 ML D5W IV SCH (01:15)
[2020-01-13] MEDS ORDERED: PIPERACILLIN/TAZOBACTAM 3.375 GM in DEXTROSE 5% 100 ML IV SCH (01:15)
--- NOTE | 2020-01-13 01:43 | History & Physical Report ---
Date of Service January 13, 2020 Assessment & Plan (1) Acute and chronic respiratory failure with hypoxia: Secondary to right middle and lower lobe presumptively aspiration pneumonia, and secondarily pulmonary edema. Present on Admission?: Yes (2) Pneumonia involving right lung: Concern regarding possibility of aspiration pneumonia. Received cefepime 2 g IV in the ED. Patient is a intermediate resident, and we typically use vancomycin IV but creatinine is 4.64. Placed on Zyvox 600 mg IV every 12 hours and Zosyn 3.375 mg IV every 12 hours. Duonebs every 4 hours while awake and every 2 hours when necessary. Pulmicort Respules 0.5 mg inhaled twice daily Continue with mask for now, will titrate downward to nasal cannula as symptoms improve. Present on Admission?: Yes (3) Pulmonary edema: Mild pulmonary edema secondary to third spacing due to hypoalbuminemia, although intravascularly dry. Hydrating gently as above, with the addition of IV albumin. We will need to follow pulmonary examination closely. Present on Admission?: Yes (4) Acute renal failure (ARF): Creatinine upon admission 4.64, with baseline 1.16-1.84. Patient appears very intravascularly dry. She is receiving 1500 mL's of normal saline IV in the ED, and they will be continued at 80 mL's per hour. Albumin level is 2.1, and will receive albumin 25 g IV every 4 hours x3. Follow serial BMP and magnesium levels. We will consult nephrology Present on Admission?: Yes (5) Paroxysmal atrial fibrillation: Continue warfarin 5 mg p.o. daily. INR is therapeutic at 2.6. Hold on metoprolol tartrate due to low blood pressure. Present on Admission?: Yes (6) Influenza A: Continue Tamiflu Present on Admission?: Yes (7) Stage II pressure ulcer of buttock: Consult wound care for 3 documented lesions by wound care outpatient Present on Admission?: Yes (8) DM type 2 (diabetes mellitus, type 2): Hold any standing orders for insulin. Placed on Accu-Cheks before meals and at bedtime/every 6 hours with NovoLog coverage per scale Present on Admission?: Yes (9) Chronic anticoagulation: On warfarin as noted above Present on Admission?: Yes (10) Hypoalbuminemia: Treating with IV albumin as noted above Present on Admission?: Yes (11) Hypothyroid: Continue levothyroxine 125 mcg p.o. daily Present on Admission?: Yes (12) Abnormal LFTs: May be secondary to influenza versus passive hepatic congestion. Follow serially Present on Admission?: Yes History of Present Illness Chief Complaint: The patient presents to the emergency department from [facility] where she was noted to have been diagnosed with influenza A 2 days ago, placed on Tamiflu, is now presenting with worsening shortness of breath that began a few hours prior to arrival. Primary Care Provider: [facility] The patient is a 64-year-old female resident of [facility], with a past medical history including gram-negative septicemia, diabetes mellitus type 2, chronic anticoagulation with warfarin, anemia, chronic joint pain, hypothyroidism, respiratory failure with hypoxia and hypercapnia, paroxysmal A. fib/flutter, acid-fast bacteria present, multiple skin wounds being actively treated by the wound care center, hypertension, and sleep apnea. She reportedly was diagnosed with influenza A 2 days ago, was started on Tamiflu, and was noted today to have developed worsening shortness of breath a few hours prior to arrival. The patient is not able to contribute to her HPI and review of systems due to illness. Allergies Allergy/AdvReac Type Severity Reaction Status Date / Time Iodinated Contrast Media Allergy Intermediate HIVES Verified 01/12/20 23:02 latex Allergy Unknown LOW LEVEL Verified 01/12/20 23:02 LATEX ALLERGY pineapple Allergy Unknown Unknown Verified 01/12/20 23:[address] HICKS Verified 01/12/20 23:02 ASKED THAT ALLERGY BE ADDED 07/31/08 Sulfa (Sulfonamide Allergy Unknown HIVES Verified 01/12/20 23:02 Antibiotics) vancomycin Allergy Unknown HIVES, GI Verified 01/12/20 23:02 UPSET Home Medications Home Medications Medication Instructions Recorded Confirmed Type aspirin 81 mg PO DAILY 08/02/18 01/12/20 History atorvastatin 40 mg PO HS 08/02/18 01/12/20 History fluticasone propionate 2 spray INTRANASAL HS 08/02/18 01/12/20 History gabapentin 600 mg PO TID 08/02/18 01/12/20 History magnesium oxide 400 mg PO QAM 08/02/18 01/12/20 History multivitamin with minerals 1 tab PO QAM 08/02/18 01/12/20 History [Multiple Vitamin-Minerals] Lactinex 1 tab PO DAILY 10/13/19 01/12/20 History albuterol sulfate [Ventolin HFA] 2 puff INHALATION Q4 PRN 10/13/19 01/12/20 History insulin lispro [Humalog U-100 1 sliding scale dose SUBCUT 10/13/19 01/12/20 History Insulin] USEASDIRECTD PRN ipratropium-albuterol 3 ml INHALATION UD PRN 10/13/19 01/12/20 History montelukast 10 mg PO QAM 10/13/19 01/12/20 History sennosides-docusate sodium 1 tab-cap PO BID 10/13/19 01/12/20 History [Senokot-S] oxycodone 5 mg PO TID PRN #10 tab 10/19/19 01/12/20 Rx furosemide [Lasix] 40 mg PO BID 10/23/19 01/12/20 History sitagliptin 50 mg PO DAILY #30 tab 11/01/19 01/12/20 Rx warfarin 5 mg PO DAILY #30 tab 11/01/19 01/12/20 Rx acetaminophen 650 mg PO Q6H PRN 11/18/19 01/12/20 History amiodarone 200 mg PO QAM 11/18/19 01/12/20 History fluticasone propion-salmeterol 1 inh INHALATION BID 11/18/19 01/12/20 History [Advair Diskus] lisinopril 20 mg tablet 20 mg PO DAILY #30 tab 12/21/19 01/12/20 Rx amoxicillin 500 mg PO BID 01/12/20 01/12/20 History amoxicillin-pot clavulanate 1 tab PO BID 01/12/20 01/12/20 History [Augmentin] bisacodyl [Dulcolax (bisacodyl)] 10 mg NM DAILY PRN 01/12/20 01/12/20 History clotrimazole 1 applic TOPICAL Q8H 01/12/20 01/12/20 History ferrous sulfate 325 mg PO DAILY 01/12/20 01/12/20 History levothyroxine 125 mcg PO DAILY 01/12/20 01/12/20 History magnesium hydroxide [Milk of 30 ml PO DAILY PRN 01/12/20 01/12/20 History Magnesia] metformin 500 mg PO BID 01/12/20 01/12/20 History metoprolol tartrate 25 mg PO Q12H 01/12/20 01/12/20 History Past Med/Surg History Medical History A-fib Acute and chronic respiratory failure with hypoxia Acute kidney failure Anemia Asthma (Chronic) CHF exacerbation (Acute) Chronic joint pain (Acute) CVA (cerebral vascular accident) (Acute) DM type 2 (diabetes mellitus, type 2) (Chronic) History of left shoulder replacement (Acute) Hypertension (Chronic) Hypothyroid Left cervical radiculopathy (Acute) Morbid obesity with body mass index of 50 or higher (Chronic) Osteoarthritis (Chronic) Pneumonia Proteinuria Respiratory failure with hypoxia and hypercapnia (Acute) Sleep apnea (Chronic) "on cpap" Stroke-like symptoms Volume overload (Acute) Wound cellulitis Surgical History Status post bilateral total hip replacement (Chronic) Family History Other Family history non-contributory Social History Preferred Language: Albanian Communication Ability: Effective Fabric Cutter Required: No Beliefs That Will Affect Care: None marital status: Single Current Living Situation: [facility] Current Living Situation Comment: [facility] Feels Safe at Home: Yes Smoking Status: Unknown if ever smoked Hx Alcohol Use: No Hx Substance Use: No Review of Systems Review of Systems: Unobtainable due to reduced consciousness Physical Exam Physical Exam: The patient is awake, unable to respond to questioning, morbidly obese, Ventimask on, lying in bed and in mild to moderate respiratory distress. HEENT--PERRL, EOMI, mucous membranes and oropharynx dry. Neck--supple. No JVD. No bruits. Thyroid normal, trachea midline, no adenopathy. Heart--normal S1 and S2. No murmurs, rubs or gallops. Lungs--diffuse inspiratory and expiratory wheezes bilaterally, with decreased breath sounds right base. Mild to moderate respiratory distress wit accessory muscle use. Abdomen--normal bowel sounds and soft. Nontender. Morbidly obese Extremities--No edema. Dermatologic--wounds as noted on wound care note from 01/05/2020, right medial hip, right lateral hip, and right distal hip punch biopsy site. Neurologic--cranial nerves II through XII grossly intact. Rheumatologic--normal range of motion. Psychiatric--confused and disoriented Results & Data Vital Signs (Past 12 Hours) Vital Signs Temp Pulse Pulse Resp BP BP Pulse Ox 01/13/20 01:30 67 24 90/48 L 97 01/13/20 01:00 69 17 94 01/13/20 00:30 70 20 94 01/13/20 00:00 71 22 90/50 L 95 01/12/20 23:31 72 29 H 94 01/12/20 23:07 70 21 94 01/12/20 22:47 68 20 96 01/12/20 22:40 92/56 L 01/12/20 22:18 98.8 F 69 69 12 159/133 H 159/133 H 80 L Laboratory Results Laboratory Results WBC 11.70 K/uL (4.8-10.8) H 01/12/20 22:56 RBC 3.22 M/uL (4.2-5.4) L 01/12/20 22:56 Hgb 8.6 g/dL (12.0-16.0) L 01/12/20 22:56 Hct 27.3 % (37-47) L 01/12/20 22:56 MCV 84.8 fL (80-100) 01/12/20 22:56 MCH 26.7 pg (25-34) 01/12/20 22:56 MCHC 31.5 g/dL (32-36) L 01/12/20 22:56 RDW Std Deviation 55.6 fL (36.4-46.3) H 01/12/20 22:56 RDW Coeff of Mehnaz 18.3 % (11.5-14.5) H 01/12/20 22:56 Plt Count 255 K/uL (130-400) 01/12/20 22:56 MPV 9.5 fL (7.4-10.4) 01/12/20 22:56 Immature Gran % (Auto) 0.3 % 01/12/20 22:56 Neut % (Auto) 88.6 % 01/12/20 22:56 Lymph % (Auto) 6.3 % 01/12/20 22:56 [place] % (Auto) 4.6 % 01/12/20 22:56 Eos % (Auto) 0.0 % 01/12/20 22:56 Baso % (Auto) 0.2 % 01/12/20 22:56 Immature Gran # (Auto) 0.04 K/uL (0.00-0.02) H 01/12/20 22:56 Neut # (Auto) 10.36 K/uL (1.4-6.5) H 01/12/20 22:56 Lymph # (Auto) 0.74 K/uL (1.2-3.4) L 01/12/20 22:56 [place] # (Auto) 0.54 K/uL (0.11-0.59) 01/12/20 22:56 Eos # (Auto) 0.00 K/uL (0-0.5) 01/12/20 22:56 Baso # (Auto) 0.02 K/uL (0-0.2) 01/12/20 22:56 Absolute Nucleated RBC 0.06 K/uL (0-0) H 01/12/20 22:56 Nucleated RBC % (auto) 0.5 % 01/12/20 22:56 PT 24.5 Seconds (9.0-12.0) H 01/12/20 22:56 INR 2.6 (0.9-1.1) H 01/12/20 22:56 APTT 40.6 Seconds (21.0-31.0) H 01/12/20 22:56 PTT Ratio 1.5 01/12/20 22:56 ABG pH 7.35 (7.35-7.45) 01/12/20 22:54 ABG pCO2 44 mmHg (35-46) 01/12/20 22:54 ABG pO2 84 mmHg (80-95) 01/12/20 22:54 ABG HCO3 24 mmol/L (19-24) 01/12/20 22:54 ABG O2 Saturation 95.4 % (90-95) H 01/12/20 22:54 ABG Base Excess -1.9 mEq/L (-9-1.8) 01/12/20 22:54 Darrel Test Pos (Pos) 01/12/20 22:54 Barometric Pressure 730.3 mm/Hg 01/12/20 22:54 Oxygen Given 8 LITERS 01/12/20 22:54 Sodium 131 mmol/L (136-145) L 01/12/20 22:56 Potassium 5.1 mmol/L (3.5-5.1) 01/12/20 22:56 Chloride 95 mmol/L (98-107) L 01/12/20 22:56 Carbon Dioxide 23 mmol/L (21-32) 01/12/20 22:56 Anion Gap 13.0 (3-11) H 01/12/20 22:56 BUN 83 mg/dl (7-18) H 01/12/20 22:56 Creatinine 4.64 mg/dl (0.6-1.2) H* 01/12/20 22:56 Est Cr Clr Drug Dosing 17.5 ml/min 01/12/20 22:56 Est GFR ( Amer) 10.7 01/12/20 22:56 Est GFR (Non-Af Amer) 9.2 01/12/20 22:56 BUN/Creatinine Ratio 17.8 (10-20) 01/12/20 22:56 Glucose 171 mg/dl (70-99) H 01/12/20 22:56 Lactate 1.1 mmol/L (0.4-2.0) 01/12/20 22:54 Calcium 7.9 mg/dl (8.5-10.1) L 01/12/20 22:56 Magnesium 2.7 mg/dl (1.8-2.4) H 01/12/20 22:56 Total Bilirubin 0.3 mg/dl (0.2-1) 01/12/20 22:56 AST 48 U/L (15-37) H 01/12/20 22:56 ALT 111 U/L (12-78) H 01/12/20 22:56 Alkaline Phosphatase 91 U/L (45-117) 01/12/20 22:56 CK-MB (CK-2) 2.4 ng/ml (0.5-3.6) 01/12/20 22:56 Troponin I 0.045 ng/ml (0-0.045) 01/12/20 22:56 NT-Pro-B Natriuret Pep 5346 pg/ml (0-900) H 01/12/20 22:56 Total Protein 6.8 gm/dl (6.4-8.2) 01/12/20 22:56 Albumin 2.1 gm/dl (3.4-5.0) L 01/12/20 22:56 Globulin 4.7 gm/dl (2.5-4.0) H 01/12/20 22:56 Albumin/Globulin Ratio 0.4 (0.9-2) L 01/12/20 22:56 Urine Color Yellow 01/13/20 Unknown Urine Appearance Clear (Clear) 01/13/20 Unknown Urine pH 5.0 (4.5-7.5) 01/13/20 Unknown Ur Specific [place] 1.020 (1.000-1.030) 01/13/20 Unknown Urine Protein Trace (Negative) H 01/13/20 Unknown Urine Glucose (UA) Negative (Negative) 01/13/20 Unknown Urine Ketones Negative (Negative) 01/13/20 Unknown Urine Blood Negative (Negative) 01/13/20 Unknown Urine Nitrite Negative (Negative) 01/13/20 Unknown Urine Bilirubin Negative (Negative) 01/13/20 Unknown Urine Urobilinogen Negative (Negative) 01/13/20 Unknown Ur Leukocyte Esterase Negative (Negative) 01/13/20 Unknown Urine WBC (Auto) 1-5 /hpf (0-5) 01/13/20 Unknown Urine RBC (Auto) 0-4 /hpf (0-4) 01/13/20 Unknown U Hyaline Cast (Auto) 5-10 /lpf (0-5) H 01/13/20 Unknown U Epithel Cells (Auto) 10-20 /lpf (0-5) H 01/13/20 Unknown Urine Bacteria (Auto) Negative (Negative) 01/13/20 Unknown Influenza Type A (PCR) Pos for Influ A (Neg) A* 01/12/20 22:35 Influenza Type B (PCR) Neg for Influ B (Neg) 01/12/20 22:35 None Diagnostic Findings [facility], [place] [phone] XRay Report Patient: MARIA ISABEL GAR AAdmit Date: 01/12/20 MR#: [id number]: [address] [place] Acct ID:[id number]: [employer] Date: [address] [place] [address] Zip: [place] [address] Age: 64Location: ED Sex: F Room/Bed: Att Phy:Diagnosis: SOB Shania Phy: Wilver Killian Date: 01/12/20 [facility] Phy:Interpreting Phy: Alejandro Bateman Admit Phy: Ordering Phy: Troy Paul D.O. cc: ~ XR chest 1V portable HISTORY: 64 years-old Female Dyspnea acute shortness of breath COMPARISON: Chest radiograph 11/18/2019 TECHNIQUE: Portable AP view of the chest FINDINGS: Cardiac silhouette is enlarged. Pulmonary vascular congestion with interstitial coarsening. Hazy ill-defined right perihilar and bibasilar densities. No pneumothorax or large pleural effusion. Mild blunting of the left costophrenic angle. Degenerative changes of the right shoulder and spine. Left shoulder total joint arthroplasty. Unchanged right pectoral Ntjbrg-[id number]-[id number] catheter. IMPRESSION: 1. Cardiomegaly with pulmonary edema. 2. Asymmetric right perihilar and bibasilar densities may reflect atelectasis, asymmetric pulmonary edema or superimposed pneumonitis. 3. Probable trace left pleural effusion. ACT 112: Negative or not required by law. The above report was generated using voice recognition software. It may contain grammatical, syntax or spelling errors. Results electronically sent 01/12/2020 10:50 PM to: Troy Paul DO Electronically signed by: Silver Bateman M.D. 01/12/2020 10:50 PM Dictated: 01/12/209 Transcribed: 01/12/202248 Code Status & VTE Plan Code Status Full code VTE Prophylaxis Plan VTE Prophylaxis will be ordered: Yes PG Care Time/CCT Total # of Minutes Spent Total Time Spent with Patient: Total time spent is greater than 50% in coordination of care (as documented) at patient's floor/unit and/or counseling patient: Coding Level of Care Code 84674 Initial Inpt Care Lvl 3 Diagnoses Acute and chronic respiratory failure with hypoxia J96.21 Pneumonia involving right lung J18.9 Pulmonary edema J81.0 Chronicity: acute Acute renal failure (ARF) N17.9 Acute renal failure type: unspecified Paroxysmal atrial fibrillation I48.0 Influenza A J10.1 Stage II pressure ulcer of buttock L89.302 DM type 2 (diabetes mellitus, type 2) E11.9; Z79.4 Diabetes mellitus complication status: without complication Diabetes mellitus senior care insulin use: with senior care use Chronic anticoagulation Z79.01 Hypoalbuminemia E88.09 Hypothyroid E03.9 Hypothyroidism type: unspecified Abnormal LFTs R94.5 (1) Pulmonary edema Chronicity: acute Qualified Code(s): J81.0 - Acute pulmonary edema (2) Acute renal failure (ARF) Acute renal failure type: unspecified Qualified Code(s): N17.9 - Acute kidney failure, unspecified (3) DM type 2 (diabetes mellitus, type 2) Diabetes mellitus complication status: without complication Diabetes mellitus senior care insulin use: with extermination inspector use Qualified Code(s): E11.9 - Type 2 diabetes mellitus without complications; Z79.4 - roasterman (current) use of insulin (4) Hypothyroid Hypothyroidism type: unspecified Qualified Code(s): E03.9 - Hypothyroidism, unspecified
[2020-01-13] MEDS ORDERED: ONDANSETRON INJ 2 MG/ML 2 ML VIAL IV PRN (02:08)
[2020-01-13] MEDS ORDERED: SODIUM CHLORIDE 0.9% 1000ML 1,000 ML IV SCH (02:08)
[2020-01-13] MEDS ORDERED: GLUCOSE 10 TABS/TUBE PO PRN (02:08)
[2020-01-13] MEDS ORDERED: CARBOHYDRATES FOR HYPOGLYCEMIA PO PRN (02:08)
[2020-01-13] MEDS ORDERED: bisacodyL 10 MG SUPP PR PRN (02:08)
[2020-01-13] MEDS ORDERED: ACETAMINOPHEN 325 MG TAB PO PRN (02:08)
[2020-01-13] MEDS ORDERED: DEXTROSE 50% 50 ML SYRINGE IV PRN (02:08)
[2020-01-13] MEDS ORDERED: GLUCOSE 40% GEL 15 GM TUBE PO PRN (02:08)
[2020-01-13] MEDS ORDERED: GLUCAGON FOR INJ 1 MG VIAL SQ PRN (02:08)
[2020-01-13] MEDS ORDERED: ALBUMIN 25% 50 ML IV SCH (03:00)
[2020-01-13] MEDS: LINEZOLID 600 MG/300 ML BAG IV SCH ×2 (03:17→19:46)
[2020-01-13] MEDS ORDERED: PIPERACILLIN/TAZOBACTAM 4.5 GM in DEXTROSE 5% 100 ML IV ONE (04:00)
[2020-01-13 05:04] LABS: iSTAT Allen Test Pass; iSTAT Art Bld Gas pCO2 Correct 46 mmHg (35-46); iSTAT Arterial Blood Gas HCO3 23 meg/L (19-24); iSTAT Arterial Blood Gas pCO2 46 mmHg (35-46); iSTAT Arterial Blood Gas pH 7.31 (7.35-7.45); iSTAT Arterial Blood Gas pO2 39 mmHg (80-95); iSTAT Arterial Blood Gas pO2 C 39; iSTAT Carbon Dioxide 25 mmol/L (24-31); iSTAT Hematocrit 23 % (37-47); iSTAT Hemoglobin 7.8 g/dl (12.0-16.0); iSTAT Site L Radial; iSTAT Sodium 128 mmol/L (135-144)
[2020-01-13] MEDS ORDERED: STAT IV Infusion **Titration per Protocol STA ×3 (05:11→10:37)
[2020-01-13 05:27] LABS: Hematocrit (blood only) 25.6 % (37-47); Mean Corpuscular Hemoglobin 26.8 pg (25-34); Mean Corpuscular Volume 85.9 fL (80-100); Mean Platelet Volume 9.7 fL (7.4-10.4); Nucleated RBC # (auto) 0.05 K/uL (0-0); Nucleated RBC % (auto) 0.4 %; Platelet Count 260 K/uL (130-400); RDW Coefficient of Variation 18.5 % (11.5-14.5); RDW Standard Deviation 56.5 fL (36.4-46.3); Red Blood Count 2.98 M/uL (4.2-5.4); White Blood Count 14.68 K/uL (4.8-10.8)
[2020-01-13] MEDS: NOREPINEPHRINE BIT INJ 8 MG in DEXTROSE 5% 500 ML IV SCH (05:35)
[2020-01-13 05:39] LABS: INR 2.8 (0.9-1.1); Prothrombin Time 26.5 Seconds (9.0-12.0)
[2020-01-13 05:48] LABS: Basophils # (auto) 0.01 K/uL (0-0.2); Basophils % (auto) 0.1 %; Immature Granulocytes # (auto) 0.06 K/uL (0.00-0.02); Immature Granulocytes % (auto) 0.4 %; Lymphocytes # (auto) 0.66 K/uL (1.2-3.4); Lymphocytes % (auto) 4.5 %; Mean Corpuscular Hgb Conc 31.3 g/dL (32-36); Monocytes # (auto) 0.64 K/uL (0.11-0.59); Monocytes % (auto) 4.4 %; Neutrophils # (auto) 13.31 K/uL (1.4-6.5); Neutrophils % (auto) 90.6 %
[2020-01-13 06:02] LABS: Albumin Globulin Ratio 0.5 (0.9-2); BUN Creatinine Ratio 17.3 (10-20); Bilirubin,Total 0.3 mg/dl (0.2-1); Calcium 7.4 mg/dl (8.5-10.1); Creatinine Clr Calc Pharmacy 16.4 ml/min; Est GFR (African American) 9.9; Est GFR (Non-African American) 8.5; Globulin 4.4 gm/dl (2.5-4.0); Magnesium 2.8 mg/dl (1.8-2.4); Total Protein 6.4 gm/dl (6.4-8.2); Troponin I 0.031 ng/ml (0-0.045)
--- NOTE | 2020-01-13 06:25 | Critical Care Consultation ---
Date of Consultation January 13, 2020 Assessment & Plan (1) Admitted to intensive care unit: Reason Critically Ill: 64-year-old female presenting with influenza and subsequent development of RIGHT-sided pneumonia with sepsis requiring vasopressors as well as BiPAP for oxygenation. Requires close hemodynamic monitoring as well as airway monitoring with possibility of need for emergent endotracheal intubation. NEURO - * CAM ICU: POSITIVE * Altered mental status: * Pleasantly confused upon arrival in the ICU. Awake and alert. Answer simple questions with yes and no. Moves all 4 extremities equally and appropriately. * No focal neurological deficits. * Consider head CT if any change in worsening symptoms and the patient on chronic anticoagulation. CARDIAC/VASCULAR - * Hypotension: * Secondary to sepsis syndrome. * Received 2 L IV fluids and resuscitative efforts. Continue with caution in the patient appears volume overloaded. * Levo fed added. * EKG demonstrates normal sinus rhythm with conduction delay and winding complex. QTc 506 ms. Avoid QTC prolonging agents. * Hypertension, hyperlipidemia, A. fib: * Hold antihypertensive at this point. * Continue with anticoagulation for now. * Consider change in dosing pending return to renal stable function. * Monitor on telemetry. RESPIRATORY - * Acute on chronic hypoxic respiratory failure: * In the setting of RIGHT lower lobe pneumonia with positive influenza A. * Initial ABG upon arrival shows more of a metabolic acidosis picture. Not retaining CO2 at this time. * Repeat ABGs as needed. * Low threshold for intubation if respiratory status worsens. * BiPAP for now to aid in oxygenation and ventilatory support. GI/NUTRITION - * N.p.o. at this time. RENAL/LYTES - * Acute renal failure: * Patient has required emergent hemodialysis in the past. * She is oliguric. * Electrolytes are appropriate. * Continue with gentle IV fluid hydration with caution secondary to volume status. - * Heard in place - Strict I&Os. * History of ESBL UTIs: * Urine looks fine today. * Currently on Zosyn which showed sensitivity in the past. ENDO - * Diabetes * BSGs per unit protocol. ISS --> gtt per unit policy. * Hypothyroidism: * Continue home dosing. HEME - * Baseline anemia. * Continue to trend in the setting of illness. ID - * Sepsis secondary to pulmonary source: * Initially treated with cefepime in the emergency department. * Agree with broadening to Zosyn and linezolid and the pneumonia patient with chronic wound of the RIGHT hip. * Will add doxy for atypical coverage as well as patient is allergic to quinolones and has a prolonged QTC. * Check procalcitonin. * Repeat lactate and declining setting. * Influenza A: * Continue with Tamiflu. * Chronic wound of the RIGHT hip: * Should be adequately covered with above-mentioned antibiotics. LINES/IV ACCESS - * PIVs x1 * RIGHT-sided a port * Heard DVT PROPHYLAXIS - * Coumadin w/ appropriate INR. * SCDs I have personally spent 55 minutes of critical care time in the direct management of this patient. This is a life/limb threatening event. This includes time spent evaluating patient, direct bedside care, chart review, placing orders, interpretation of diagnostic studies, discussion with consultants, patient, and family members, as well as other required patient management activities. This time is exclusive of all separately billable procedures, and teaching time and separate from and in addition to any other critical care service time. Thank you for allowing us to participate in the care of this patient. Please refer to my attending physician's documentation for any further recommendations. (2) Pneumonia involving right lung: (3) Hypoxia: (4) Acute renal failure (ARF): (5) Influenza A: (6) Pneumonia: (7) Sepsis: (8) DM type 2 (diabetes mellitus, type 2): (9) Chronic anticoagulation: (10) Respiratory failure with hypoxia and hypercapnia: (11) Paroxysmal atrial fibrillation: (12) Paroxysmal atrial flutter: (13) Pulmonary edema: History of Present Illness Attending Physician: Kenyon Willis MD History of Present Illness Patient is an unfortunate 64-year-old female with a significant past medical history of morbid obesity, osteoarthritis, hypertension, diabetes, prior CVA, sleep apnea, chronic hypoxic respiratory failure, A. fib, and chronic wound to the RIGHT-sided hip. She presented to the emergency department from [facility] with increased shortness of breath fever. She was noted to have oxygen saturations in the 60s. She was provided DuoNeb in route which did help with her saturations. Patient was noted to be somewhat confused which was worse than her baseline. She received cefepime in the emergency department. She was broadened to Zosyn and linezolid upon admission. She tested positive for influenza A and was started on Tamiflu. She was noted to be in acute on chronic renal failure with a creatinine of greater than 4. She was barely making urine. While admitted in the telemetry floor, the patient was Noted to have decrease in her blood pressure as well as concerns for increasing agitation and increasing oxygen requirements. Upon arrival in the ICU, the patient is awake and alert, but pleasantly confused. She is able to follow simple commands and answer yes/no questions appropriately. She has no focal neurological deficits on exam. Equal strength bilaterally. She has occasional myoclonic jerks and is slightly confused, but otherwise acting appropriately. She was placed on BiPAP and blood gas was obtained. Repeat labs were ordered as well. Patient unable to contribute to historical information secondary to metabolic encephalopathy. Allergies Allergy/AdvReac Type Severity Reaction Status Date / Time Iodinated Contrast Media Allergy Intermediate HIVES Verified 01/12/20 23:02 latex Allergy Unknown LOW LEVEL Verified 01/12/20 23:02 LATEX ALLERGY pineapple Allergy Unknown Unknown Verified 01/12/20 23:[address] HICKS Verified 01/12/20 23:02 ASKED THAT ALLERGY BE ADDED 07/31/08 Sulfa (Sulfonamide Allergy Unknown HIVES Verified 01/12/20 23:02 Antibiotics) vancomycin Allergy Unknown HIVES, GI Verified 01/12/20 23:02 UPSET Home Medications Home Medications Medication Instructions Recorded Confirmed Type aspirin 81 mg PO DAILY 08/02/18 01/12/20 History atorvastatin 40 mg PO HS 08/02/18 01/12/20 History fluticasone propionate 2 spray INTRANASAL HS 08/02/18 01/12/20 History gabapentin 600 mg PO TID 08/02/18 01/12/20 History magnesium oxide 400 mg PO QAM 08/02/18 01/12/20 History multivitamin with minerals 1 tab PO QAM 08/02/18 01/12/20 History [Multiple Vitamin-Minerals] Lactinex 1 tab PO DAILY 10/13/19 01/12/20 History albuterol sulfate [Ventolin HFA] 2 puff INHALATION Q4 PRN 10/13/19 01/12/20 History insulin lispro [Humalog U-100 1 sliding scale dose SUBCUT 10/13/19 01/12/20 History Insulin] USEASDIRECTD PRN ipratropium-albuterol 3 ml INHALATION UD PRN 10/13/19 01/12/20 History montelukast 10 mg PO QAM 10/13/19 01/12/20 History sennosides-docusate sodium 1 tab-cap PO BID 10/13/19 01/12/20 History [Senokot-S] oxycodone 5 mg PO TID PRN #10 tab 10/19/19 01/12/20 Rx furosemide [Lasix] 40 mg PO BID 10/23/19 01/12/20 History sitagliptin 50 mg PO DAILY #30 tab 11/01/19 01/12/20 Rx warfarin 5 mg PO DAILY #30 tab 11/01/19 01/12/20 Rx acetaminophen 650 mg PO Q6H PRN 11/18/19 01/12/20 History amiodarone 200 mg PO QAM 11/18/19 01/12/20 History fluticasone propion-salmeterol 1 inh INHALATION BID 11/18/19 01/12/20 History [Advair Diskus] lisinopril 20 mg tablet 20 mg PO DAILY #30 tab 12/21/19 01/12/20 Rx amoxicillin 500 mg PO BID 01/12/20 01/12/20 History amoxicillin-pot clavulanate 1 tab PO BID 01/12/20 01/12/20 History [Augmentin] bisacodyl [Dulcolax (bisacodyl)] 10 mg [place] DAILY PRN 01/12/20 01/12/20 History clotrimazole 1 applic TOPICAL Q8H 01/12/20 01/12/20 History ferrous sulfate 325 mg PO DAILY 01/12/20 01/12/20 History levothyroxine 125 mcg PO DAILY 01/12/20 01/12/20 History magnesium hydroxide [Milk of 30 ml PO DAILY PRN 01/12/20 01/12/20 History Magnesia] metformin 500 mg PO BID 01/12/20 01/12/20 History metoprolol tartrate 25 mg PO Q12H 01/12/20 01/12/20 History Patient History Medical History A-fib Acute and chronic respiratory failure with hypoxia Acute kidney failure Anemia Asthma (Chronic) CHF exacerbation (Acute) Chronic joint pain (Acute) CVA (cerebral vascular accident) (Acute) DM type 2 (diabetes mellitus, type 2) (Chronic) History of left shoulder replacement (Acute) Hypertension (Chronic) Hypothyroid Left cervical radiculopathy (Acute) Morbid obesity with body mass index of 50 or higher (Chronic) Osteoarthritis (Chronic) Pneumonia Proteinuria Respiratory failure with hypoxia and hypercapnia (Acute) Sleep apnea (Chronic) "on cpap" Stroke-like symptoms Volume overload (Acute) Wound cellulitis Surgical History Status post bilateral total hip replacement (Chronic) Family History Other Family history non-contributory Social History Preferred Language: Kinyarwanda Communication Ability: Effective 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 GENERAL - 64-year-old female appearing her stated age who is in mild respiratory distress. Awake, alert, and pleasantly confused. SKIN - Large open wound with purulent drainage noted to the RIGHT anterior hip. HEAD - NC/AT. EYES - PERRL with EOMI bilaterally. Sclera anicteric. EARS - No deformities of external structures noted on gross examination bilaterally. NOSE - Midline and without cyanosis. No epistaxis or purulent drainage noted. MOUTH/OROPHARYNX - Without perioral cyanosis. Buccal mucosa pink and moist and without leukoplakia. NECK - Neck with FROM. Supple to palpation. No nuchal rigidity. LUNGS -slightly tachypneic. Coarse breath sounds noted to the RIGHT sided base. Upper airway secretion with resident sounds appreciated. CARDIAC - RRR with S1/S2. No murmur, rubs, or gallops appreciated. ABDOMEN - Abdominal contour obese without pulsations or visible masses. BS normoactive all four quadrants. No tenderness, palpable masses, hepatosplenomegaly, or ascites noted. EXTREMITIES - No clubbing or peripheral cyanosis. No pretibial edema present. +3/5 radial and dorsalis pedis pulses palpated throughout. +5/5 strength noted in UE/LE bilaterally. NEUROLOGIC/PSYCH -awake and alert. Pleasantly confused. No focal neurological deficits. Moves all extremities equally and appropriately. Follows simple commands. Answers yes/no questions. Results & Data ([facility]) Vital Signs (Past 12 Hours) Vital Signs Temp Pulse Pulse Resp BP BP BP 01/13/20 06:00 36.7 C 52 L 17 103/47 L 01/13/20 05:28 36.7 C 55 L 16 71/30 L 01/13/20 05:24 56 L 17 01/13/20 04:27 89/38 L 01/13/20 04:08 74/36 L 01/13/20 04:02 36.6 C 62 25 H 69/32 L 01/13/20 02:09 36.8 C 64 17 85/49 L 01/13/20 02:08 64 77/38 L 01/13/20 01:30 67 24 90/48 L 01/13/20 01:00 69 17 01/13/20 00:30 70 20 01/13/20 00:00 71 22 90/50 L 01/12/20 23:31 72 29 H 01/12/20 23:07 70 21 01/12/20 22:47 68 20 01/12/20 22:40 92/56 L 01/12/20 22:18 37.1 C 69 69 12 159/133 H 159/133 H Pulse Ox Pulse Ox 01/13/20 06:00 100 01/13/20 05:28 100 01/13/20 05:24 97 01/13/20 04:27 01/13/20 04:08 01/13/20 04:02 91 01/13/20 02:09 94 01/13/20 02:08 92 01/13/20 01:30 97 01/13/20 01:00 94 01/13/20 00:30 94 01/13/20 00:00 95 01/12/20 23:31 94 01/12/20 23:07 94 01/12/20 22:47 96 01/12/20 22:40 01/12/20 22:18 80 L Coding Level of Care Code Critical Care 1st 30-74 mins Diagnoses Admitted to intensive care unit Z78.9 Pneumonia involving right lung J18.9 Hypoxia R09.02 Acute renal failure (ARF) N17.9 Acute renal failure type: unspecified Influenza A J10.1 Pneumonia J18.9 Laterality: right Lung location: lower lobe of lung Pneumonia type: due to unspecified organism Sepsis A41.9 Sepsis acute organ dysfunction status: unspecified Sepsis type: sepsis due to unspecified organism DM type 2 (diabetes mellitus, type 2) E11.9; Z79.4 Diabetes mellitus complication status: without complication Diabetes mellitus salvage determiner insulin use: with fci use Chronic anticoagulation Z79.01 Respiratory failure with hypoxia and hypercapnia J96.91; J96.92 Chronicity: unspecified Paroxysmal atrial fibrillation I48.0 Paroxysmal atrial flutter I48.92 Pulmonary edema J81.0 Chronicity: acute Time Spent (min) 55 (1) Acute renal failure (ARF) Acute renal failure type: unspecified Qualified Code(s): N17.9 - Acute kidney failure, unspecified (2) DM type 2 (diabetes mellitus, type 2) Diabetes mellitus complication status: without complication Diabetes mellitus salvage determiner insulin use: with fci use Qualified Code(s): E11.9 - Type 2 diabetes mellitus without complications; Z79.4 - residential (current) use of insulin (3) Respiratory failure with hypoxia and hypercapnia Chronicity: unspecified Qualified Code(s): J96.91 - Respiratory failure, unspecified with hypoxia; J96.92 - Respiratory failure, unspecified with hypercapnia (4) Pulmonary edema Chronicity: acute Qualified Code(s): J81.0 - Acute pulmonary edema (5) Sepsis Sepsis acute organ dysfunction status: unspecified Sepsis type: sepsis due to unspecified organism Qualified Code(s): A41.9 - Sepsis, unspecified organism (6) Pneumonia Laterality: right Lung location: lower lobe of lung Pneumonia type: due to unspecified organism Qualified Code(s): J18.9 - Pneumonia, unspecified organism
[2020-01-13] MEDS ORDERED: LEVOTHYROXINE SODIUM 125 MCG TABLET PO SCH (06:30)
[2020-01-13] MEDS: CLOTRIMAZOLE 1% CR 15 GM TUBE TOP SCH ×3 (06:40→21:44)
[2020-01-13] MEDS: BUDESONIDE 0.5 MG/2 ML VIAL (PULMICORT) NEB SCH ×2 (06:57→19:48)
--- NOTE | 2020-01-13 07:00 | Procedure Note ---
Procedure Note Date of Service January 13, 2020 Procedure: Arterial Line Placement Attending: Dr. Reyes APC: Huy Ortiz PA-C Indication: Monitoring on Pressors Anesthesia: Lidocaine 1% Emergent consent implied in the setting of need for vasoactive medications, frequent ABGs, and altered mental status and need for possible emergent en dotracheal intubation. A time-out was completed verifying correct patient, procedure, site, positioning, and implant(s) or special equipment if applicable. Allens test was performed to ensure adequate perfusion. Patients LEFT wrist was prepped and draped in the usual sterile fashion. Ultrasound guidance was used to aid needle placement. A 20g Arrow arterial line was introduced into the LEFT Radial artery. Catheter was threaded, and the needle was removed with appropriate blood return. Good waveform was observed. The patient tolerated the procedure well. Confirmation of placement with ultrasound. Blood Loss: Minimal Complications: None Procedural Ultrasound Guidance: Procedure Date: 01/13/2020 Indication: ABGs, Pressors, Frequent Labs. Attending: Dr. Reyes APC: Huy Ortiz PA-C Artery Identified: YES Line confirmed in Artery with ultrasound: YES Complications: NONE Patient tolerated procedure: WELL Coding CPT Codes Tubes, Drains, and Vasc Access - Tubes, Drains, and Vasc Access: [id number] Place Catheter In Artery ([id number]) [facility] [place] Procedure Codes (Charges) Tubes, Drains, and Vasc Access Procedure 1: Tubes, Drains, and Vasc Access: [id number] Place Catheter In Artery
[2020-01-13] MEDS ORDERED: INSULIN ASPART 100 UNITS/ML 3 ML PEN SC SCH ×4 (07:30→21:00)
[2020-01-13 07:41] LABS: Estimated Average Glucose 166 mg/dl; Hemoglobin A1C 7.4 % (4.5-5.6)
[2020-01-13] MEDS ORDERED: fentaNYL citrate 100 MCG/2 ML CARP IV ONE (08:25)
[2020-01-13] MEDS ORDERED: MIDAZOLAM HCL 5 MG/ML 1 ML VIAL IV ONE (08:25)
[2020-01-13] MEDS ORDERED: ETOMIDATE 2 MG/ML 20 ML VIAL IV ONE ×2 (08:25→10:34)
--- NOTE | 2020-01-13 08:52 | CT Scan Report ---
HEAD CT NONCONTRAST CT DOSE: 720.95 mGycm HISTORY: altered mental status TECHNIQUE: Multiaxial CT images of the head were performed without the use of intravenous contrast. A utomated exposure control was utilized for this study. A dose lowering technique was utilized adheri ng to the principles of ALARA. Comparison: Head CT 07/04/2018. Findings: The paranasal sinuses and mastoid air cells are clear. The calvarium and skull base are int act. The ventricles and sulci are within normal limits. There is no mass, hematoma, midline shift, or acute infarct. Impression: No acute intracranial abnormality. ACT 112: Negative or not required by law. Results electronically sent 01/13/2020 8:50 AM to: Lavelle Valdes DO Electronically signed by: Freddy Aden M.D. 01/13/2020 8:50 AM
[2020-01-13] MEDS ORDERED: MONTELUKAST SODIUM 10 MG TABLET PO SCH (09:00)
[2020-01-13] MEDS ORDERED: GABAPENTIN 600 MG TAB PO SCH (09:00)
[2020-01-13] MEDS ORDERED: ASPIRIN 81 MG ECTAB PO SCH (09:00)
[2020-01-13] MEDS ORDERED: OSELTAMIVIR PHOSPHATE SUSP 30 MG/5 ML UDP PO SCH (09:00)
[2020-01-13] MEDS ORDERED: DOCUSATE SODIUM/SENNA 50/8.6MG TAB PO SCH (09:00)
[2020-01-13] MEDS ORDERED: AMIODARONE 200 MG TAB PO SCH ×2 (09:00→13:00)
[2020-01-13] MEDS ORDERED: LACTOBACILLUS ACIDOPHILUS (FLORANEX) TAB PO SCH (09:00)
[2020-01-13 09:06] LABS: iSTAT Art Bld Gas pCO2 Correct 47 mmHg (35-46); iSTAT Art Bld Gas pH Corrected 7.295 (7.35-7.45); iSTAT Arterial Blood Gas HCO3 23 meg/L (19-24); iSTAT Arterial Blood Gas pCO2 48 mmHg (35-46); iSTAT Arterial Blood Gas pH 7.29 (7.35-7.45); iSTAT Arterial Blood Gas pO2 71 mmHg (80-95); iSTAT Arterial Blood Gas pO2 C 69; iSTAT Carbon Dioxide 24 mmol/L (24-31); iSTAT FiO2 30 %; iSTAT Hematocrit 26 % (37-47); iSTAT Hemoglobin 8.8 g/dl (12.0-16.0); iSTAT Site Art Line; iSTAT Sodium 130 mmol/L (135-144)
--- NOTE | 2020-01-13 09:19 | Surgery Consultation ---
Date of Consultation January 13, 2020 Assessment & Plan (1) Wound, open, hip or thigh: This is a 64y F from [facility] with multiple medical issues including DM2, ARF, pAfib on coumadin, morbid obesity, sleep apnea, on 2L O2 at baseline, HTN, and a chronic non healing R hip wound who presents to the [facility] ED on 01/12/20 with shortness of breath. Patient currently on abx for treatment of presumed pneumonia and nephrology has been consulted for ARF. Surgery was consulted as patient has a chronic non healing wound around her R hip, that per patient has never healed since her right hip replacement >17years ago. She has recently been following with the wound care clinic & ID for management of this. Chart checking it does not appear patient has been able to undergo any CT or MRI imaging of wound due to her morbid obesity. I probed central opening of wound with a q-tip and it does not appear to track anywhere. There is some white/bobby drainage from wound.. it is a hard area to keep clean/dry since it is located in a skin fold. Agree with sending off wound culture, would get wound care and infectious disease involved as they have been following her. I will discuss with Dr. Barger & he recommend we obtain an ortho consult to evaluate for infection of prosthesis. Currently, I do not think there is anything we can surgically offer her at this time and agree with ongoing local wound care & further consultation. History of Present Illness Attending Physician: Kalyan Valderrama, History of Present Illness This is a 64y F from [facility] with multiple medical issues including DM2, ARF, pAfib on coumadin, morbid obesity, sleep apnea, on 2L O2 at baseline, HTN, and a chronic non healing R hip wound who presents to the [facility] ED on 01/12/20 with shortness of breath. Chart checking it appears as though the patient was recently diagnosed with the flu, and started antivirals two days ago. Her CXR shows some concern for pneumonia and patient's Cr. 4.6 on admission and she was subsequently admitted to the ICU. Surgery was consulted as patient has a chronic non healing right hip wound. On my interview this AM patient is a poor historian but states this wound has been present for >17 years and it started after having a right hip replacement with ?Dr. Puga. She states she has been following at the wound care clinic for the past 2 years and has been undergoing local wound care and has been on abx under guidance of infectious disease. Today's patient's labs are notable for WBC: 14.6, K: 5, Cr: 4.9, and INR: 2.8. Surgery was consulted for evaluation of right hip wound. Patient reports that the wound seems to be at baseline, no better nor worse. It drains intermittently and is currently not painful. Allergies Allergy/AdvReac Type Severity Reaction Status Date / Time Iodinated Contrast Media Allergy Intermediate HIVES Verified 01/12/20 23:02 latex Allergy Unknown LOW LEVEL Verified 01/12/20 23:02 LATEX ALLERGY pineapple Allergy Unknown Unknown Verified 01/12/20 23:[address] HICKS Verified 01/12/20 23:02 ASKED THAT ALLERGY BE ADDED 07/31/08 Sulfa (Sulfonamide Allergy Unknown HIVES Verified 01/12/20 23:02 Antibiotics) vancomycin Allergy Unknown HIVES, GI Verified 01/12/20 23:02 UPSET Home Medications Home Medications Medication Instructions Recorded Confirmed Type aspirin 81 mg PO DAILY 08/02/18 01/12/20 History atorvastatin 40 mg PO HS 08/02/18 01/12/20 History fluticasone propionate 2 spray INTRANASAL HS 08/02/18 01/12/20 History gabapentin 600 mg PO TID 08/02/18 01/12/20 History magnesium oxide 400 mg PO QAM 08/02/18 01/12/20 History multivitamin with minerals 1 tab PO QAM 08/02/18 01/12/20 History [Multiple Vitamin-Minerals] Lactinex 1 tab PO DAILY 10/13/19 01/12/20 History albuterol sulfate [Ventolin HFA] 2 puff INHALATION Q4 PRN 10/13/19 01/12/20 History insulin lispro [Humalog U-100 1 sliding scale dose SUBCUT 10/13/19 01/12/20 History Insulin] USEASDIRECTD PRN ipratropium-albuterol 3 ml INHALATION UD PRN 10/13/19 01/12/20 History montelukast 10 mg PO QAM 10/13/19 01/12/20 History sennosides-docusate sodium 1 tab-cap PO BID 10/13/19 01/12/20 History [Senokot-S] oxycodone 5 mg PO TID PRN #10 tab 10/19/19 01/12/20 Rx furosemide [Lasix] 40 mg PO BID 10/23/19 01/12/20 History sitagliptin 50 mg PO DAILY #30 tab 11/01/19 01/12/20 Rx warfarin 5 mg PO DAILY #30 tab 11/01/19 01/12/20 Rx acetaminophen 650 mg PO Q6H PRN 11/18/19 01/12/20 History amiodarone 200 mg PO QAM 11/18/19 01/12/20 History fluticasone propion-salmeterol 1 inh INHALATION BID 11/18/19 01/12/20 History [Advair Diskus] lisinopril 20 mg tablet 20 mg PO DAILY #30 tab 12/21/19 01/12/20 Rx amoxicillin 500 mg PO BID 01/12/20 01/12/20 History amoxicillin-pot clavulanate 1 tab PO BID 01/12/20 01/12/20 History [Augmentin] bisacodyl [Dulcolax (bisacodyl)] 10 mg OK DAILY PRN 01/12/20 01/12/20 History clotrimazole 1 applic TOPICAL Q8H 01/12/20 01/12/20 History ferrous sulfate 325 mg PO DAILY 01/12/20 01/12/20 History levothyroxine 125 mcg PO DAILY 01/12/20 01/12/20 History magnesium hydroxide [Milk of 30 ml PO DAILY PRN 01/12/20 01/12/20 History Magnesia] metformin 500 mg PO BID 01/12/20 01/12/20 History metoprolol tartrate 25 mg PO Q12H 01/12/20 01/12/20 History Patient History Medical History A-fib Acute and chronic respiratory failure with hypoxia Acute kidney failure Anemia Asthma (Chronic) CHF exacerbation (Acute) Chronic joint pain (Acute) CVA (cerebral vascular accident) (Acute) DM type 2 (diabetes mellitus, type 2) (Chronic) History of left shoulder replacement (Acute) Hypertension (Chronic) Hypothyroid Left cervical radiculopathy (Acute) Morbid obesity with body mass index of 50 or higher (Chronic) Osteoarthritis (Chronic) Pneumonia Proteinuria Respiratory failure with hypoxia and hypercapnia (Acute) Sleep apnea (Chronic) "on cpap" Stroke-like symptoms Volume overload (Acute) Wound cellulitis Surgical History Status post bilateral total hip replacement (Chronic) Family History Other Family history non-contributory Social History Preferred Language: Burkinan Communication Ability: Effective Design Sales Consultant Required: No Beliefs That Will Affect Care: None marital status: Single Current Living Situation: Half-Way Current Living Situation Comment: [facility] Feels Safe at Home: Yes Smoking Status: Never smoker Second Hand Exposure: No ; Hx Alcohol Use: No Hx Substance Use: No Review of Systems Constitutional: no fever Integumentary: R hip wound, intermittent drainage, non painful Physical Exam Physical Exam: sleepy, but arousable. on BIPAP Constitutional: + morbidly obese Respiratory: BIPAP mask on Skin: R hip wound in skin fold, some exudative/white drainage, central opening, erythema, non tender, no fluctuance Results & Data Vital Signs (Past 12 Hours) Vital Signs Temp Pulse Pulse Resp BP BP BP 01/13/20 08:33 92 H 17 01/13/20 06:00 36.7 C 52 L 17 103/47 L 01/13/20 05:28 36.7 C 55 L 16 71/30 L 01/13/20 05:24 56 L 17 01/13/20 04:27 89/38 L 01/13/20 04:08 74/36 L 01/13/20 04:02 36.6 C 62 25 H 69/32 L 01/13/20 02:09 36.8 C 64 17 85/49 L 01/13/20 02:08 64 77/38 L 01/13/20 01:30 67 24 90/48 L 01/13/20 01:00 69 17 01/13/20 00:30 70 20 01/13/20 00:00 71 22 90/50 L 01/12/20 23:31 72 29 H 01/12/20 23:07 70 21 01/12/20 22:47 68 20 01/12/20 22:40 92/56 L 01/12/20 22:18 37.1 C 69 69 12 159/133 H 159/133 H Pulse Ox Pulse Ox 01/13/20 08:33 100 01/13/20 06:00 100 01/13/20 05:28 100 01/13/20 05:24 97 01/13/20 04:27 01/13/20 04:08 01/13/20 04:02 91 01/13/20 02:09 94 01/13/20 02:08 92 01/13/20 01:30 97 01/13/20 01:00 94 01/13/20 00:30 94 01/13/20 00:00 95 01/12/20 23:31 94 01/12/20 23:07 94 01/12/20 22:47 96 01/12/20 22:40 01/12/20 22:18 80 L PG Care Time/CCT Total # of Minutes Spent Total Time Spent with Patient: Total time spent is greater than 50% in coordination of care (as documented) at patient's floor/unit and/or counseling patient: Coding Level of Care Code 45737 Initial Inpt Care Lvl 2 Diagnoses Wound, open, hip or thigh
[2020-01-13] MEDS: DOXYCYCLINE HYCLATE 100 MG in DEXTROSE 5% 100 ML IV SCH ×2 (09:55→21:44)
--- NOTE | 2020-01-13 10:11 | Nephrology Consultation ---
Date of Consultation January 13, 2020 Assessment & Plan (1) Acute kidney injury: 64 yo F admitted with Respiratory failure secondary to sepsis with Flu and RLL pneumonia. Also found to have oliguric Dianne with volume overload. Cr has been around 4.6-5.0, electrolyte acceptable. BP has been low, on Pressor. Intubated for hemodynamic instability, low BP and HR. --plan for emergency HD with low blood flow and UF as tolerated, Discussed with Brother Kei Khanna over telephone at [phone] who gave consent. If pt does not tolerate HD and remain oliguric with volume overload , may need to transfer to a facility where CRRT can be tried. --continue pressor support to keep MAP>65 --dose meds for GFR<10 Will follow Thank you for the consult. (2) Oliguria: (3) Pneumonia involving right lung: (4) Influenza A: History of Present Illness Reason for Consultation: DIANNE, oliguria Attending Physician: Kalyan Valderrama DO History of Present Illness Rekha Khanna is a 64 y o F with multiple significant comorbidities including morbid obesity, osteoarthritis, hypertension, diabetes, prior CVA, chronic hypoxic respiratory failure, A. fib, and chronic non healing rt hip wound admitted to hospital yesterday with respiratory failure and DIANNE. Nephrology consult was requested to manage DIANNE. EMR records were reviewed in detail during visit. Rekha was brought to ER from [facility] yesterday with progressive SOB and fever, O2 sat was in the 60s. She was noted to be somewhat confused which was worse than her baseline. Influenza A was positive and started on Tamiflu. CXR showed possible rt LL pneumonia, left pl effusion and pulmonary congestion. empirically started on Zosyn and Linezolid. On admission cr was 4.5, slightly worsened to 5.0 this am, electrolyte acceptable. Had h/o repeated episode of DIANNE but lately cr was around 1.1-1.2. UO was minimum but slightly improved to around 30 ml/h over last few h. Currently on BiPAP. BP has been low, on IV fluid and pressor. She was admitted to the hospital 3 times since early October 2019 twice in October and once in November with multiple issues including respiratory failure and pneumonia. She was intubated initially and successfully extubated after 1 day. On initial admission in early October 2019 she was found to have acute kidney injury ( cr >2.5, K 7.3) and hyperkalemia thought to be secondary to hemodynamically mediated ATN. Received 1 HD Rx for hyperkalemia. Renal function rapidly improved. Has low-grade proteinuria. Was on lisinopril 40 mg before however discontinued in the setting of DIANNE and resumed recently as DIANNE resolved. She was just intubated for hemodynamic instability, bradycardia, decreased responsiveness. UO remained low. Allergies Allergy/AdvReac Type Severity Reaction Status Date / Time Iodinated Contrast Media Allergy Intermediate HIVES Verified 01/12/20 23:02 latex Allergy Unknown LOW LEVEL Verified 01/12/20 23:02 LATEX ALLERGY pineapple Allergy Unknown Unknown Verified 01/12/20 23:[address] HICKS Verified 01/12/20 23:02 ASKED THAT ALLERGY BE ADDED 07/31/08 Sulfa (Sulfonamide Allergy Unknown HIVES Verified 01/12/20 23:02 Antibiotics) vancomycin Allergy Unknown HIVES, GI Verified 01/12/20 23:02 UPSET Home Medications Home Medications Medication Instructions Recorded Confirmed Type aspirin 81 mg PO DAILY 08/02/18 01/12/20 History atorvastatin 40 mg PO HS 08/02/18 01/12/20 History fluticasone propionate 2 spray INTRANASAL HS 08/02/18 01/12/20 History gabapentin 600 mg PO TID 08/02/18 01/12/20 History magnesium oxide 400 mg PO QAM 08/02/18 01/12/20 History multivitamin with minerals 1 tab PO QAM 08/02/18 01/12/20 History [Multiple Vitamin-Minerals] Lactinex 1 tab PO DAILY 10/13/19 01/12/20 History albuterol sulfate [Ventolin HFA] 2 puff INHALATION Q4 PRN 10/13/19 01/12/20 History insulin lispro [Humalog U-100 1 sliding scale dose SUBCUT 10/13/19 01/12/20 History Insulin] USEASDIRECTD PRN ipratropium-albuterol 3 ml INHALATION UD PRN 10/13/19 01/12/20 History montelukast 10 mg PO QAM 10/13/19 01/12/20 History sennosides-docusate sodium 1 tab-cap PO BID 10/13/19 01/12/20 History [Senokot-S] oxycodone 5 mg PO TID PRN #10 tab 10/19/19 01/12/20 Rx furosemide [Lasix] 40 mg PO BID 10/23/19 01/12/20 History sitagliptin 50 mg PO DAILY #30 tab 11/01/19 01/12/20 Rx warfarin 5 mg PO DAILY #30 tab 11/01/19 01/12/20 Rx acetaminophen 650 mg PO Q6H PRN 11/18/19 01/12/20 History amiodarone 200 mg PO QAM 11/18/19 01/12/20 History fluticasone propion-salmeterol 1 inh INHALATION BID 11/18/19 01/12/20 History [Advair Diskus] lisinopril 20 mg tablet 20 mg PO DAILY #30 tab 12/21/19 01/12/20 Rx amoxicillin 500 mg PO BID 01/12/20 01/12/20 History amoxicillin-pot clavulanate 1 tab PO BID 01/12/20 01/12/20 History [Augmentin] bisacodyl [Dulcolax (bisacodyl)] 10 mg RI DAILY PRN 01/12/20 01/12/20 History clotrimazole 1 applic TOPICAL Q8H 01/12/20 01/12/20 History ferrous sulfate 325 mg PO DAILY 01/12/20 01/12/20 History levothyroxine 125 mcg PO DAILY 01/12/20 01/12/20 History magnesium hydroxide [Milk of 30 ml PO DAILY PRN 01/12/20 01/12/20 History Magnesia] metformin 500 mg PO BID 01/12/20 01/12/20 History metoprolol tartrate 25 mg PO Q12H 01/12/20 01/12/20 History Patient History Medical History A-fib Acute and chronic respiratory failure with hypoxia Acute kidney failure Anemia Asthma (Chronic) CHF exacerbation (Acute) Chronic joint pain (Acute) CVA (cerebral vascular accident) (Acute) DM type 2 (diabetes mellitus, type 2) (Chronic) History of left shoulder replacement (Acute) Hypertension (Chronic) Hypothyroid Left cervical radiculopathy (Acute) Morbid obesity with body mass index of 50 or higher (Chronic) Osteoarthritis (Chronic) Pneumonia Proteinuria Respiratory failure with hypoxia and hypercapnia (Acute) Sleep apnea (Chronic) "on cpap" Stroke-like symptoms Volume overload (Acute) Wound cellulitis Surgical History Status post bilateral total hip replacement (Chronic) Family History Other Family history non-contributory Social History Preferred Language: Faroese Communication Ability: Effective Sign Writer Hand Required: No Beliefs That Will Affect Care: None marital status: Single Current Living Situation: Long Term Current Living Situation Comment: [facility] Feels Safe at Home: Yes Smoking Status: Never smoker Second Hand Exposure: No ; Hx Alcohol Use: No Hx Substance Use: No Review of Systems Review of Systems: Unobtainable due to endotracheal tube Physical Exam Constitutional: + ill appearing; no acute distress Intubated, sedated Eyes: PERRL, conjunctivae normal, anicteric sclerae ENMT: external ear and nose normal, oropharynx normal Ears: no hearing impairment Neck: trachea midline Respiratory: normal respiratory effort, lungs clear to auscultation no cough Auscultation: + diminished lung sounds and + rales Cardiovascular: RRR, no murmur, no edema Gastrointestinal (Abdomen): normal bowel sounds, soft, nontender, no hepatosplenomegaly Percussion/Palpation: abdomen nontender, no guarding and abdomen not rigid Musculoskeletal: Extremities: extremities normal to inspection Gait: normal gait Skin: no rashes, warm and dry Neurologic: detail could not be dose as pt sedated Results & Data Vital Signs (Past 12 Hours) Vital Signs Temp Pulse Pulse Resp BP BP BP 01/13/20 08:33 92 H 17 01/13/20 06:00 36.7 C 52 L 17 103/47 L 01/13/20 05:28 36.7 C 55 L 16 71/30 L 01/13/20 05:24 56 L 17 01/13/20 04:27 89/38 L 01/13/20 04:08 74/36 L 01/13/20 04:02 36.6 C 62 25 H 69/32 L 01/13/20 02:09 36.8 C 64 17 85/49 L 01/13/20 02:08 64 77/38 L 01/13/20 01:30 67 24 90/48 L 01/13/20 01:00 69 17 01/13/20 00:30 70 20 01/13/20 00:00 71 22 90/50 L 01/12/20 23:31 72 29 H 01/12/20 23:07 70 21 01/12/20 22:47 68 20 01/12/20 22:40 92/56 L 01/12/20 22:18 37.1 C 69 69 12 159/133 H 159/133 H Pulse Ox Pulse Ox 01/13/20 08:33 100 01/13/20 06:00 100 01/13/20 05:28 100 01/13/20 05:24 97 01/13/20 04:27 01/13/20 04:08 01/13/20 04:02 91 01/13/20 02:09 94 01/13/20 02:08 92 01/13/20 01:30 97 01/13/20 01:00 94 01/13/20 00:30 94 01/13/20 00:00 95 01/12/20 23:31 94 01/12/20 23:07 94 01/12/20 22:47 96 01/12/20 22:40 01/12/20 22:18 80 L PG Care Time/CCT Total # of Minutes Spent Total Time Spent with Patient: Total time spent is greater than 50% in coordination of care (as documented) at patient's floor/unit and/or counseling patient: Coding Level of Care Code 28064 Inpt Consult Level 5 Diagnoses Acute kidney injury N17.9 Oliguria R34 Pneumonia involving right lung J18.9 Influenza A J10.1
[2020-01-13] MEDS ORDERED: CALCIUM GLUCONATE 10% 1,000 MG in SODIUM CHLORIDE 0.9% 50 ML IV STA (10:27)
[2020-01-13] MEDS: FERROUS SULFATE 325 MG TAB PO SCH (10:28)
[2020-01-13] MEDS ORDERED: INSULIN GLARGINE SOLOSTAR 100 UNITS/ML 3 ML PEN SC ONE (10:30)
[2020-01-13] MEDS ORDERED: ATROPINE SULFATE 0.1 MG/ML 10ML SYR IV STA (10:34)
[2020-01-13] MEDS ORDERED: ATROPINE SULFATE 0.1 MG/ML 10ML SYR IV ONE (10:34)
[2020-01-13] MEDS ORDERED: ROCURONIUM BROMIDE 10 MG/ML 10 ML VIAL IV STA (10:36)
[2020-01-13] MEDS ORDERED: RAPID SEQUENCE INDUCTION BAG ONE (10:44)
[2020-01-13] MEDS ORDERED: PHARMACY GLYCEMIC MGMT CONSULT PRN (10:46)
--- NOTE | 2020-01-13 11:07 | Procedure Note ---
Procedure Note Date of Service January 13, 2020 Note INTUBATION PROCEDURE NOTE: Dr. Leonidas Reyes A time-out was completed verifying correct patient, procedure, site, positioning. Patient was evaluated and required intubation for acute hypoxemic respiratory failure and altered mental status. Sedative agent used: 100 mcg of fentanyl and 25 mg of etomidate Paralysis agent used: 50 mg of rocuronium Emergent consent was implied given patients rapidly declining clinical status and need for airway protection. Number of attempts: 1 Video laryngoscope was utilized The patient was prepared in the appropriate fashion. Sedation was achieved utilizing fentanyl, etomidate and rocuronium. The patient was easily ventilated using [id number] to achieve adequate oxygenation. A 7.5 Ukrainian endotracheal tube was placed under 21 to 22 cm at the lip. The stylette was removed and balloon was inflated with 10mL of air. Appropriate Colorimetric change was appreciated. Bilateral breath sounds were heard without air sounds in the abdomen. Post Intubation Chest X-ray ordered Patient tolerated the procedure well and there were no immediate complications. Coding CPT Codes Resuscitation - Resuscitation: 11614 Endotracheal Intubation, emergency ([id number]) Tubes, Drains, and Vasc Access - Tubes, Drains, and Vasc Access: [id number] Place Catheter In Artery ([id number]) [facility] [place] Procedure Codes (Charges) Resuscitation Resuscitation: 85052 Endotracheal Intubation, emergency Tubes, Drains, and Vasc Access Procedure 1: Tubes, Drains, and Vasc Access: [id number] Place Catheter In Artery
--- NOTE | 2020-01-13 11:10 | Communication Note ---
Date of Service: January 13, 2020 Patient with worsening respiratory failure and bradycardia. We gave 1 mg of calcium chloride and due to concerns of possible calcium channel jaci overd ose. We also gave half a milligram of atropine with mild improvement of her heart rate from 50-59. Given the patient's continued altered mental status and respiratory failure, we elected to emergently intubate the patient. Intubation went without any issues. Blood pressure and heart rate are improving status post intubation. Chest x-ray is pending. We are repeating BMP to follow-up on her renal failure. She may be heading towards requiring dialysis in the form of continuous renal replacement therapy in which case she would likely have to be transferred to a tertiary Medical Center where they have such availabilities. Cardiology consultation and renal consultation are pending. EKG shows a first- degree block with an idioventricular rhythm. If we run into further issues of bradycardia, we will consider starting her epinephrine or dopamine. We did do a limited bedside echocardiogram which demonstrated a relatively intact RVEF and mildly reduced LVEF. IVC was dilated to 3.3 cm indicating likely fluid overload and possible chronic secondary pulmonary hypertension as we do know she has given her obesity hypoventilation syndrome and diastolic dysfunction. We were able to contact the second contact listed on her chart which was her friend and updated the friend. Coding Level of Care Code Critical Care 1st 30-74 mins Time Spent (min) 30
[2020-01-13 11:13] LABS: BUN Creatinine Ratio 17.8 (10-20); Calcium 7.3 mg/dl (8.5-10.1); Est GFR (African American) 10.3; Est GFR (Non-African American) 8.9; Potassium 4.8 mmol/L (3.5-5.1)
[2020-01-13] MEDS: fentaNYL DRIP 1,250 MCG/250 ML BAG IV SCH (11:33)
[2020-01-13] MEDS: FAMOTIDINE 20 MG in SYRINGE 3 ML IV SCH (11:36)
[2020-01-13] MEDS: INSULIN ASPART 100 UNITS/ML 3 ML PEN SC SCH ×4 (11:39→23:43)
--- NOTE | 2020-01-13 11:42 | XRay Report ---
XR chest 1V portable CLINICAL HISTORY: 64 years-old Female presenting with intubation confirm. TECHNIQUE: Portable upright AP view of the chest was obtained. COMPARISON: 01/12/2020. FINDINGS: Endotracheal tube terminates in the lower thoracic trachea approximately 2 cm from the rodger. Nasoga stric tube terminates below the diaphragm, side hole within the gastric lumen. Right subclavian Medip ort terminates at the superior cavoatrial junction. Numerous overlying external leads. Atherosclerosis of the aortic arch. Cardiac silhouette moderately enlarged. Pulmonary vascular promin ence. Interstitial prominence. Slight interval decrease in right basilar opacity. A left retrocardiac opacity is not excluded. Trace pleural effusions not excluded. No pneumothorax. Left shoulder arthro plasty. Upper abdomen normal. IMPRESSION: 1. Appropriately positioned lines and tubes. 2. Slight interval decrease in right basilar infiltrate concerning for pneumonia. 3. Cardiomegaly with volume overload and congestive change. Some degree of pulmonary edema may also be present. ACT 112: Negative or not required by law. Results electronically sent 01/13/2020 11:40 AM to: Lavelle Valdes DO Electronically signed by: Gavino Stephen M.D. 01/13/2020 11:40 AM
--- NOTE | 2020-01-13 11:58 | Pharmacy Report ---
Pharmacy Glycemic Short Note 2 - Date of Service January 13, 2020 - Glycemic Short BSG Results (Last 24 hours): 01/12/20 01/13/20 01/13/20 22:56 02:28 05:04 Glucose 171 H 219 H POC Glucose 205 H 01/13/20 01/13/20 01/13/20 08:34 10:13 10:24 Glucose 207 H POC Glucose 242 H 224 H 01/13/20 11:37 Glucose POC Glucose 220 H OUTPATIENT ANTIDIABETIC REGIMEN: * Metformin 500mg PO BID * Sitagliptin 50mg daily * Humalog per sliding scale * A1c = 7.4% ASSESSMENT: * Type 2 diabetic admitted from [facility] w/ septic shock, influenza A, pneumonia, DIANNE * BSGs in low 200s this AM, plan was made to initiate SQ basal bolus regimen this AM based upon adjusted body weight and "moderate" - "severe" stress * Pt has since been intubated however, and now receiving both pressor and inotropic support. Will likely require IV insulin drip to rapidly and safely control BSGs. * Will check BSGs Q 2 hrs, and if BSG not less than 180 with next check - will begin IV drip per protocol, goal 120-180 PLAN FOR INPATIENT GLYCEMIC CONTROL: * Hold outpatient oral diabetes medications (metformin, sitagliptin) * Basal insulin * Lantus 15 SQ x 1 now, then BID per the following scale * 0 units if BSG less than 120 * 8 units if BSG 120-140 * 15 units if BSG 140-200 * 20 units if BSG above 200 * Bolus insulin * NovoLog per scale Q 2 hrs initially * Goal Range: Low 110 mg/dL - High 140 mg/dL * Correction Factor: 20 mg/dL/unit 1st check, then 35mg/dL/unit for subsequent checks * Nutritional / Prandial insulin: none at this time as pt is NPO PLAN FOR DISCHARGE: * to be determined.
[2020-01-13] MEDS ORDERED: SODIUM CHLORIDE 0.9% 1000ML 1,000 ML IV PRN (12:13)
[2020-01-13 12:14] LABS: iSTAT Art Bld Gas pCO2 Correct 63 mmHg (35-46); iSTAT Art Bld Gas pH Corrected 7.194 (7.35-7.45); iSTAT Arterial Blood Gas HCO3 24 meg/L (19-24); iSTAT Arterial Blood Gas pCO2 64 mmHg (35-46); iSTAT Arterial Blood Gas pH 7.19 (7.35-7.45); iSTAT Arterial Blood Gas pO2 86 mmHg (80-95); iSTAT Arterial Blood Gas pO2 C 84; iSTAT Carbon Dioxide 26 mmol/L (24-31); iSTAT FiO2 50 %; iSTAT Hematocrit 26 % (37-47); iSTAT Hemoglobin 8.8 g/dl (12.0-16.0); iSTAT Potassium 4.9 mmol/L (3.3-5.0); iSTAT Site Art Line; iSTAT Sodium 131 mmol/L (135-144)
--- NOTE | 2020-01-13 12:19 | XCELERA ---
[id number] \\[id number]
[2020-01-13] MEDS: PIPERACILLIN/TAZOBACTAM 4.5 GM in DEXTROSE 5% 100 ML IV SCH ×2 (12:38→23:43)
[2020-01-13] MEDS: DOBUTamine / D5W 500 MG/250 ML BAG IV SCH ×2 (13:03→23:43)
--- NOTE | 2020-01-13 13:10 | Cardiology Consultation ---
Date of Consultation January 13, 2020 Assessment & Plan (1) Sepsis: 2. Influenza A 3. Pneumonia with acute respiratory failure 4. Paroxysmal atrial fibrillation 5. Acute renal failure Patient admitted to [facility] from [facility] yesterday with acute respiratory failure in the setting of sepsis secondary to influenza, pneumonia. Also with evidence of acute renal failure. Currently in the ICU requiring pressors, intubation. Cardiology consulted in the setting of bradycardia. Patients heart r ate did response to atropine. EKGs with sinus bradycardia and 1st degree AV block. Bradycardia likely secondary to her beta jaci, amiodarone and low suspicion of underlying conduction disease at this time. Agree with holding metoprolol. Recommend also holding amiodarone. Echo shows normal LV function, likely normal RV function, dilated IVC and elevated RVSP. Patient was seen with Dr. Townsend. [facility] cardiology will resume patient's cardiac care tomorrow. History of Present Illness Attending Physician: Kalyan Valderrama, DO History of Present Illness Mrs. Khanna is a 64 year old female with a medical history significant for paroxysmal atrial fibrillation, history of CVA, diabetes, hypertension, dyslipidemia, obesity, CKD, chronic respiratory failure and chronic right hip wound. Patient typically follows with [facility] cardiology. Patient resides at [facility]. She was admitted yesterday with respiratory failure and sepsis. She is currently in the ICU and is intubated therefore history was gathered from her chart. No family at bedside. She was diagnosed with influenza A several days ago and was febrile. Yesterday became short of breath and hypoxic with oxygen sats in the 60s on 2L oxygen via [place]. She was brought to [facility] via ambulance and clinical picture consistent with sepsis. She was found to be in acute renal failure with a creatinine greater than 4. Chest xray with pulmonary congestion and right sided infiltrate concerning for pneumonia. She was started on broad spectrum antibiotics. Also has been hypotensive requiring pressors, fluids. Patient was initially on BiPAP but this morning was noted to have worsening respiratory failure and bradycardia. She was intubated. There was concern of possible beta jaci overdose. She was given atropine 0.5 mg with improvement in heart rate. Patient takes metoprolol tartrate 25 mg bid and amiodarone 200 mg daily for her paroxysmal atrial fibrillation. Currently her metoprolol is on hold. Electrocardiogram with sinus bradycardia with 1st degree AV block and IVCD. Echo with normal LV function, no regional wall motion abnormalities, mild TR, right ventricle difficult to visualize but function appears normal, dilated inferior vena cava and elevated RVSP at 40-50 mmHg. Patient remains oliguric with creatinine in the range of 4- 5. Transfer to tertiary center is being considered. Allergies Allergy/AdvReac Type Severity Reaction Status Date / Time Iodinated Contrast Media Allergy Intermediate HIVES Verified 01/12/20 23:02 latex Allergy Unknown LOW LEVEL Verified 01/12/20 23:02 LATEX ALLERGY pineapple Allergy Unknown Unknown Verified 01/12/20 23:[address] HICKS Verified 01/12/20 23:02 ASKED THAT ALLERGY BE ADDED 07/31/08 Sulfa (Sulfonamide Allergy Unknown HIVES Verified 01/12/20 23:02 Antibiotics) vancomycin Allergy Unknown HIVES, GI Verified 01/12/20 23:02 UPSET Home Medications Home Medications Medication Instructions Recorded Confirmed Type aspirin 81 mg PO DAILY 08/02/18 01/12/20 History atorvastatin 40 mg PO HS 08/02/18 01/12/20 History fluticasone propionate 2 spray INTRANASAL HS 08/02/18 01/12/20 History gabapentin 600 mg PO TID 08/02/18 01/12/20 History magnesium oxide 400 mg PO QAM 08/02/18 01/12/20 History multivitamin with minerals 1 tab PO QAM 08/02/18 01/12/20 History [Multiple Vitamin-Minerals] Lactinex 1 tab PO DAILY 10/13/19 01/12/20 History albuterol sulfate [Ventolin HFA] 2 puff INHALATION Q4 PRN 10/13/19 01/12/20 History insulin lispro [Humalog U-100 1 sliding scale dose SUBCUT 10/13/19 01/12/20 History Insulin] USEASDIRECTD PRN ipratropium-albuterol 3 ml INHALATION UD PRN 10/13/19 01/12/20 History montelukast 10 mg PO QAM 10/13/19 01/12/20 History sennosides-docusate sodium 1 tab-cap PO BID 10/13/19 01/12/20 History [Senokot-S] oxycodone 5 mg PO TID PRN #10 tab 10/19/19 01/12/20 Rx furosemide [Lasix] 40 mg PO BID 10/23/19 01/12/20 History sitagliptin 50 mg PO DAILY #30 tab 11/01/19 01/12/20 Rx warfarin 5 mg PO DAILY #30 tab 11/01/19 01/12/20 Rx acetaminophen 650 mg PO Q6H PRN 11/18/19 01/12/20 History amiodarone 200 mg PO QAM 11/18/19 01/12/20 History fluticasone propion-salmeterol 1 inh INHALATION BID 11/18/19 01/12/20 History [Advair Diskus] lisinopril 20 mg tablet 20 mg PO DAILY #30 tab 12/21/19 01/12/20 Rx amoxicillin 500 mg PO BID 01/12/20 01/12/20 History amoxicillin-pot clavulanate 1 tab PO BID 01/12/20 01/12/20 History [Augmentin] bisacodyl [Dulcolax (bisacodyl)] 10 mg RI DAILY PRN 01/12/20 01/12/20 History clotrimazole 1 applic TOPICAL Q8H 01/12/20 01/12/20 History ferrous sulfate 325 mg PO DAILY 01/12/20 01/12/20 History levothyroxine 125 mcg PO DAILY 01/12/20 01/12/20 History magnesium hydroxide [Milk of 30 ml PO DAILY PRN 01/12/20 01/12/20 History Magnesia] metformin 500 mg PO BID 01/12/20 01/12/20 History metoprolol tartrate 25 mg PO Q12H 01/12/20 01/12/20 History Patient History Medical History A-fib Acute and chronic respiratory failure with hypoxia Acute kidney failure Anemia Asthma (Chronic) CHF exacerbation (Acute) Chronic joint pain (Acute) CVA (cerebral vascular accident) (Acute) DM type 2 (diabetes mellitus, type 2) (Chronic) History of left shoulder replacement (Acute) Hypertension (Chronic) Hypothyroid Left cervical radiculopathy (Acute) Morbid obesity with body mass index of 50 or higher (Chronic) Osteoarthritis (Chronic) Pneumonia Proteinuria Respiratory failure with hypoxia and hypercapnia (Acute) Sleep apnea (Chronic) "on cpap" Stroke-like symptoms Volume overload (Acute) Wound cellulitis Surgical History Status post bilateral total hip replacement (Chronic) Family History Other Family history non-contributory Social History Preferred Language: Serbian Communication Ability: Effective Employment Consultant Required: No Beliefs That Will Affect Care: None marital status: Single Current Living Situation: [facility] Current Living Situation Comment: [facility] Feels Safe at Home: Yes Smoking Status: Never smoker Second Hand Exposure: No ; Hx Alcohol Use: No Hx Substance Use: No Review of Systems Review of Systems: Unobtainable due to endotracheal tube Physical Exam Physical Exam: General: Patient intubated, sedated. Neck: No appreciable JVD, exam is difficult due to body habitus. Lungs: Course breath sounds. Cardiac: Regular rate and rhythm. S1-S2 normal. No appreciable murmur, gallop or rub. Abdomen: Soft and nontender. Bowel sounds normal. No abdominal bruit. Extremities/vascular: Warm, well perfused. No peripheral edema. Skin: Large right hip wound not examined Neurologic: Intubated, sedated. Results & Data ([facility]) Vital Signs (Past 12 Hours) Vital Signs Temp Pulse Pulse Resp BP BP BP 01/13/20 11:05 16 01/13/20 08:33 92 H 17 01/13/20 06:00 36.7 C 52 L 17 103/47 L 01/13/20 05:28 36.7 C 55 L 16 71/30 L 01/13/20 05:24 56 L 17 01/13/20 04:27 89/38 L 01/13/20 04:08 74/36 L 01/13/20 04:02 36.6 C 62 25 H 69/32 L 01/13/20 02:09 36.8 C 64 17 85/49 L 01/13/20 02:08 64 77/38 L 01/13/20 01:30 67 24 90/48 L 01/13/20 01:00 69 17 01/13/20 00:30 70 20 Pulse Ox Pulse Ox 01/13/20 11:05 01/13/20 08:33 100 01/13/20 06:00 100 01/13/20 05:28 100 03/06/20 05:24 97 01/13/20 04:27 01/13/20 04:08 01/13/20 04:02 91 01/13/20 02:09 94 01/13/20 02:08 92 01/13/20 01:30 97 01/13/20 01:00 94 01/13/20 00:30 94 PG Care Time/CCT Total # of Minutes Spent Total Time Spent with Patient: Total time spent is greater than 50% in coordination of care (as documented) at patient's floor/unit and/or counseling patient: Coding Level of Care Code 21037 Initial Inpt Care Lvl 3 Diagnoses Sepsis A41.9 Sepsis acute organ dysfunction status: unspecified Sepsis type: sepsis due to unspecified organism (1) Sepsis Sepsis acute organ dysfunction status: unspecified Sepsis type: sepsis due to unspecified organism Qualified Code(s): A41.9 - Sepsis, unspecified organism
[2020-01-13] MEDS ORDERED: GLUCAGON IV ONE (13:15)
[2020-01-13] MEDS: OSELTAMIVIR PHOSPHATE SUSP 30 MG/5 ML UDP NG SCH (13:22)
[2020-01-13] MEDS: LACTOBACILLUS ACIDOPHILUS (FLORANEX) TAB PO SCH (13:24)
[2020-01-13] MEDS: MONTELUKAST SODIUM 10 MG TABLET NG SCH (13:25)
[2020-01-13] MEDS: DOCUSATE SODIUM/SENNA 50/8.6MG TAB PO SCH ×2 (13:25→21:44)
[2020-01-13] MEDS: LEVOTHYROXINE SODIUM 125 MCG TABLET PO SCH (13:26)
[2020-01-13] MEDS: ASPIRIN 81 MG CHEW NG SCH (13:27)
[2020-01-13 13:52] LABS: iSTAT Art Bld Gas pCO2 Correct 59 mmHg (35-46); iSTAT Art Bld Gas pH Corrected 7.204 (7.35-7.45); iSTAT Arterial Blood Gas HCO3 24 meg/L (19-24); iSTAT Arterial Blood Gas pCO2 61 mmHg (35-46); iSTAT Arterial Blood Gas pO2 95 mmHg (80-95); iSTAT Arterial Blood Gas pO2 C 92; iSTAT Carbon Dioxide 25 mmol/L (24-31); iSTAT FiO2 50 %; iSTAT Hematocrit 25 % (37-47); iSTAT Hemoglobin 8.5 g/dl (12.0-16.0); iSTAT Potassium 4.8 mmol/L (3.3-5.0); iSTAT Site Art Line; iSTAT Sodium 131 mmol/L (135-144)
[2020-01-13] MEDS ORDERED: HEPARIN 100 UNIT/ML 5ML FLUSH ONE (14:12)
--- NOTE | 2020-01-13 14:21 | Procedure Note ---
Procedure Note Date of Service January 13, 2020 Coding CPT Codes Tubes, Drains, and Vasc Access - Tubes, Drains, and Vasc Access: [id number] Insertion of cannula for hemodialysis ([id number]) Tubes, Drains, and Vasc Access - Tubes, Drains, and Vasc Access: [id number] Ultrasound Guidance For Vascular ([id number]) [facility] Procedure Codes (Charges) Indication for Procedure Indication for procedure: Triple-lumen dialysis catheter: Procedure: Right internal Jugular Central Line Placement Indication: Central Drug Administration, Poor Venous Access, Multiple Lab Draws Necessary, etc. Anesthesia: Patient was sedated with fentanyl continuously. I also used 8 mL of lidocaine. Consent was signed and placed on the chart prior to procedure. Indication, risks, and benefits were explained at length. A time-out was completed verifying correct patient, procedure, site, positioning, and implants(s) or special equipment if applicable. Patients right neck was cleansed and draped in the typical sterile fashion using Chloraprep. The Internal Jugular Vein and Carotid Artery were identified using ultrasound. The superficial tissue was anesthetized using 8 mL of 1% lidocaine without epinephrine under direct visualization with the ultrasound. After adequate anesthetization was achieved, the Internal Jugular vein was cannulated under direct ultrasound guidance using an introducer needle on a syringe. Good venous blood return was maintained prior to removal of syringe from introducer needle. Using Seldinger Technique, a guide wire was advanced through the introducer needle without resistance. The introducer needle was removed and ultrasound images were obtained of the guide wire within the Internal Jugular Vein and saved to the patients medical record. A small incision was made in penetrating fashion at the guide wire insertion site utilizing an 11 blade scalpel. The dilator was advanced to the vessel without resistance. The dilator was exchanged for the triple lumen catheter which was advanced into the vessel without resistance. The guide wire was removed intact from the catheter without issue. Claves were placed on each catheter tip with confirmation of good blood flow from each lumen. Each port was easily flushed with sterile saline. The catheter was placed at 13 cm and sutured in place. BioPatch was applied to the catheter and a sterile Tegaderm dressing was applied over the catheter with careful attention to sterility. Patient tolerated procedure well. No immediate complications were met. Post procedure x-ray was completed, placement was appropriate and no pneumothorax was noted. Images obtained are saved for permanent record Procedural Ultrasound Guidance used Images obtained are saved for permanent record. Tubes, Drains, and Vasc Access Procedure 1: Tubes, Drains, and Vasc Access: [id number] Insertion of cannula for hemodialysis Procedure 2: Tubes, Drains, and Vasc Access: [id number] Ultrasound Guidance For Vascular
--- NOTE | 2020-01-13 14:57 | XRay Report ---
XR chest 1V portable CLINICAL HISTORY: 64 years-old Female presenting with dialysis cath placement confirm. TECHNIQUE: Portable upright AP view of the chest was obtained. COMPARISON: 01/13/2020 at 11:06 AM. FINDINGS: Interval placement of a large bore right internal jugular catheter, likely a Derik catheter, which terminates in the upper SVC or right brachiocephalic vein. Redemonstration of the right subclavian Me diport, which terminates at the superior cavoatrial junction. Endotracheal tube remains within the mi dthoracic trachea nearly 4 cm from the rodger. Nasogastric tube descends below the diaphragm, terminu s not visualized. Numerous overlying external leads to grating image quality. Atherosclerosis of the aortic arch. Prominence of the aortopulmonary window likely relates to enlarge ment of the main pulmonary artery. Cardiac silhouette mildly enlarged. Pulmonary vascular prominence and interstitial prominence is stable to slightly worsened from prior. Persistent bibasilar opacities greater on the right. No large effusion or pneumothorax. Left shoulder arthroplasty. Upper abdomen n ormal. IMPRESSION: 1. Right IJ large bore central venous line terminates in the right brachiocephalic vein or upper SVC . Correlate for desired positioning. 2. Remaining lines and tubes appropriately positioned. 3. Cardiomegaly with volume overload and significant congestive change, which is stable to slightly worse from prior. 4. Mild pulmonary edema may be present, however, asymmetric right basilar infiltrate raises concern for underlying pneumonia. ACT 112: Negative or not required by law. Electronically signed by: Gavino Stephen M.D. 01/13/2020 2:55 PM
[2020-01-13] MEDS ORDERED: INSULIN PROTOCOL GOAL RANGE ONE (15:40)
[2020-01-13] MEDS ORDERED: INSULIN REGULAR 250 UNITS in SODIUM CHLORIDE 0.9% 247.5 ML IV SCH (15:45)
[2020-01-13] MEDS ORDERED: NovoLIN-R BOLUS FROM BAG IV ONE (15:45)
--- NOTE | 2020-01-13 15:50 | Electrocardiogram Report ---
Test Reason : Blood Pressure : / mmHG Vent. Rate : 068 BPM Atrial Rate : 068 BPM P-R Int : 204 ms QRS Dur : 124 ms QT Int : 476 ms P-R-T Axes : 060 -14 035 degrees QTc Int : 506 ms Normal sinus rhythm Non-specific intra-ventricular conduction delay Borderline ECG When compared with ECG of 18-NOV-2019 06:43, No significant change was found Confirmed by Jeffy Townsend ([id number]) on 01/13/2020 3:49:45 PM Referred By: [facility] Confirmed By:Jeffy Townsend
--- NOTE | 2020-01-13 15:58 | Electrocardiogram Report ---
Test Reason : Blood Pressure : / mmHG Vent. Rate : 050 BPM Atrial Rate : 000 BPM P-R Int : 000 ms QRS Dur : 132 ms QT Int : 542 ms P-R-T Axes : 000 020 040 degrees QTc Int : 494 ms Sinus rhythm with 1st degree A-V block Non-specific intra-ventricular conduction block Abnormal ECG When compared with ECG of 12-JAN-2020 22:13, (unconfirmed) No significant change Confirmed by Jeffy Townsend ([id number]) on 01/13/2020 3:58:34 PM Referred By: [facility] Confirmed By:Jeffy Townsend
--- NOTE | 2020-01-13 15:59 | Electrocardiogram Report ---
Test Reason : Blood Pressure : / mmHG Vent. Rate : 050 BPM Atrial Rate : 050 BPM P-R Int : 228 ms QRS Dur : 132 ms QT Int : 544 ms P-R-T Axes : 070 017 054 degrees QTc Int : 495 ms Sinus bradycardia with 1st degree A-V block Non-specific intra-ventricular conduction block Abnormal ECG When compared with ECG of 13-JAN-2020 10:36, (unconfirmed) No significant change Confirmed by Jeffy Townsend ([id number]) on 01/13/2020 3:58:45 PM Referred By: [facility] Confirmed By:Jeffy Townsend
[2020-01-13] MEDS ORDERED: WARFARIN SOD 5 MG TAB PO SCH (16:00)
[2020-01-13 17:17] LABS: Hepatitis B Surface Ab Quant < 3.10 mIU/mL (>or=10mIU/mL Immune); Hepatitis B Surface Antibody Non-Immune
[2020-01-13 17:28] LABS: Hepatitis B Surface Antigen Neg (Neg)
--- NOTE | 2020-01-13 19:26 | XRay Report ---
RIGHT HIP 2 VIEWS CLINICAL HISTORY: Right hip arthroplasty. FINDINGS: AP and crosstable lateral views of the right hip are compared to study dated 08/02/2018. The examination is significantly degraded by large body habitus. A bipolar right hip arthroplasty is in near-anatomic alignment. No periprosthetic lucency is identified. No fracture is seen. The overlying soft tissues are normal as visualized noting calcified granulomas in the gluteal region. There is ath erosclerotic calcification of the right femoral artery. IMPRESSION: No acute abnormality is identified. Electronically signed by: Daron Venegas M.D. 01/13/2020 7:24 PM
[2020-01-13] MEDS ORDERED: Nursing to Pharmacy Communication ONE (19:37)
[2020-01-13] MEDS ORDERED: ATORVASTATIN 40 MG TAB PO SCH (21:00)
--- NOTE | 2020-01-13 21:08 | History & Physical Bridge Note ---
Date of Service January 13, 2020 History & Physical Bridge Note I have examined the patient, reviewed the History & Physical and in the interval since the performance of the History & Physical I have noted the following changes of clinical significance: patient admitted after midnight she was transferred to the ICU because she required BIPAP and closer hemodynamic monitoring she became bradycardic requiring Atropine, Glucagon, eventually had to be started on dopamine cardiology felt that bradycardia due to beta blockade and amiodarone, agree with holding them, EKG showed sinus bradycardia with 1st degree AV block patient's respiratory status also became compromised and she required intubation and mechanical ventilation nephrology was consulted for worsening renal failure, recommended low volume [employer] to start today she was one hour into hemodialysis during my visit, tolerating well for now her status is guarded she is with respiratory failure due to right lower lobe pneumonia as well as influenza A infection she is in renal failure requiring hemodialysis she is requiring vasopressors for hypotension and bradycardia will discuss further with ICU in the morning
[2020-01-13] MEDS: ATORVASTATIN 40 MG TAB NG SCH (21:44)
[2020-01-13] MEDS: FLUTICASONE PROPIONATE NA SPR 16 GM BTL SCH (21:45)
[2020-01-14] MEDS ORDERED: HEPARIN 100 UNIT/ML 5ML FLUSH FLUSH PRN (00:37)
--- NOTE | 2020-01-14 01:01 | Consultation Report ---
DATE OF CONSULTATION: 01/13/2020 PERTINENT HISTORY: This is a 64-year-old female seen at the request of Dr. Willis for draining right thigh wound. This patient is well known to the orthopedic service and unfortunately presented to [facility] with acute and chronic respiratory failure with hypoxia. She was in her usual state of health at [facility] where she typically resides. She is recently diagnosed with influenza type A 2 days ago, was started on Tamiflu and noted on 01/13/2020, to have developed worsening shortness of breath 2 hours prior to arrival. The patient was not able to contribute to her history and review of systems due to illness. The patient was admitted to the hospital, developed respiratory collapse and intubated. The patient is currently in the intensive care unit on ventilator. The patient does awaken and she is being maintained on fentanyl. The patient had a complicated history related to her right hip per the chart since 01/19/2006, she had a right total hip arthroplasty performed by Dr. Mark Puga, uneventful initially; however, developed infection of the right hip on 04/01/2006, she had a right hip I and D of deep abscess and closed over drains. She had subsequent recurrence and another I and D performed on 05/15/[address] Conti and right hip was then closed over drains. She had varying states of drainage and sinus tracts of the right hip since that time. She has had multiple episodes of treatment with the wound care center over the last 13 years. She is on suppressive antibiotics and was doing relatively well on the hip; however, she has been seeing wound care center intermittently throughout. PAST MEDICAL HISTORY: AFib, acute and chronic respiratory failure with hypoxia, acute kidney failure, anemia, asthma, CHF exacerbation of chronic joint pains, CVA, diabetes type 2, history of left shoulder replacement, hypertension, hypothyroidism, left cervical radiculopathy, morbid obesity, body mass index of 50 or higher, osteoarthritis, pneumonia, proteinuria, respiratory failure with hypoxia and hypercapnia, sleep apnea on CPAP, stroke-like symptoms, volume overload, wound cellulitis, chronic draining wound right hip. PAST SURGICAL HISTORY: Bilateral hip replacement, left total shoulder replacement, procedure as indicated throughout this current hospital stay is noted in the medical record. ALLERGIES: IODINATED CONTRAST MEDIA, LATEX, PINEAPPLE, QUINOLONES, SULFA ANTIBIOTICS, VANCOMYCIN. MEDICATIONS: Please note the extensive list noted in the medical record. SOCIAL HISTORY: The patient lives at [facility]. Denies tobacco, alcohol or drug use. She is single. PHYSICAL EXAM: This is a 64-year-old morbidly obese female who is currently intubated in the intensive care unit. Examination of the right hip demonstrates chronic draining superficial wound to the right hip. The local enlarged soft tissue was indurated. There is no significant discharge drainage. There is local odor. There is some scant drainage from the wound. She had no complaints of the right hip with examination. Internal and external rotation 20 degrees, hip flexion limited to approximately 15 degrees. Unable to perform full extension as the patient is supine in hospital room bed on intubation. The hip appears to be grossly reduced into the hip acetabulum. No current radiographs are available. IMPRESSION: 1. Right thigh chronically draining wound, currently under the care of the wound management team. 2. Status post total hip arthroplasty index procedure 01/19/[address] Puga with [address] Puga and Dr. Conti. RECOMMENDATION: Radiographs of the right hip to assess for position and alignment. Wound culture and treatment with antibiotics under the direction of the infectious disease service. Continue IV antibiotics as appropriate. We will follow with you. Thank you for the opportunity to consult in care of this patient.
[2020-01-14] MEDS: NOREPINEPHRINE BIT INJ 8 MG in DEXTROSE 5% 500 ML IV SCH ×3 (01:15→12:55)
[2020-01-14] MEDS: fentaNYL DRIP 1,250 MCG/250 ML BAG IV SCH ×3 (02:12→23:53)
[2020-01-14 04:49] LABS: Basophils # (auto) 0.01 K/uL (0-0.2); Basophils % (auto) 0.1 %; Eosinophils # (auto) 0.05 K/uL (0-0.5); Eosinophils % (auto) 0.4 %; Hematocrit (blood only) 26.2 % (37-47); Hemoglobin 8.3 g/dL (12.0-16.0); Immature Granulocytes # (auto) 0.06 K/uL (0.00-0.02); Immature Granulocytes % (auto) 0.5 %; Lymphocytes # (auto) 0.45 K/uL (1.2-3.4); Lymphocytes % (auto) 3.4 %; Mean Corpuscular Hgb Conc 31.7 g/dL (32-36); Mean Corpuscular Volume 85.3 fL (80-100); Mean Platelet Volume 9.3 fL (7.4-10.4); Monocytes % (auto) 4.6 %; Neutrophils # (auto) 11.91 K/uL (1.4-6.5); Platelet Count 280 K/uL (130-400); RDW Coefficient of Variation 18.5 % (11.5-14.5); RDW Standard Deviation 56.1 fL (36.4-46.3); Red Blood Count 3.07 M/uL (4.2-5.4); White Blood Count 13.08 K/uL (4.8-10.8)
[2020-01-14 05:12] LABS: Allen Test Pos (Pos); Base Excess ABG 0.1 mEq/L (-9-1.8); HCO3 ABG 26 mmol/L (19-24); Oxygen Saturation ABG 89.3 % (90-95); PCO2 ABG 49 mmHg (35-46); PO2 ABG 62 mmHg (80-95); pH ABG 7.34 (7.35-7.45)
[2020-01-14 05:26] LABS: Albumin Level 1.9 gm/dl (3.4-5.0); BUN Creatinine Ratio 14.9 (10-20); Calcium 7.8 mg/dl (8.5-10.1); Creatinine Clr Calc Pharmacy 29.8 ml/min; Est GFR (African American) 20.5; Est GFR (Non-African American) 17.7; Magnesium 2.1 mg/dl (1.8-2.4); Phosphorus 4.6 mg/dl (2.5-4.9); Potassium 3.9 mmol/L (3.5-5.1)
[2020-01-14 05:37] LABS: INR 3.6 (0.9-1.1)
[2020-01-14] MEDS: LEVOTHYROXINE SODIUM 125 MCG TABLET PO SCH (05:43)
[2020-01-14] MEDS: INSULIN ASPART 100 UNITS/ML 3 ML PEN SC SCH ×4 (05:43→21:14)
[2020-01-14] MEDS: CLOTRIMAZOLE 1% CR 15 GM TUBE TOP SCH ×3 (05:43→21:03)
[2020-01-14] MEDS: BUDESONIDE 0.5 MG/2 ML VIAL (PULMICORT) NEB SCH ×2 (07:28→19:34)
--- NOTE | 2020-01-14 07:46 | XRay Report ---
XR chest 1V portable CLINICAL HISTORY: 64 years-old Female presenting with f/u. TECHNIQUE: Portable upright AP view of the chest was obtained. COMPARISON: 01/13/2020. FINDINGS: Large bore right internal jugular central venous catheter terminates at the right brachiocephalic vei n or upper SVC. Right subclavian Mediport terminates in the superior cavoatrial junction. Endotrachea l tube terminates in the midthoracic trachea 3.6 cm from the rodger. Nasogastric tube descends below the diaphragm terminating in the body the stomach. Several overlying external leads and support devic es further degraded image quality, which is already degraded by body habitus and portable technique. Atherosclerosis of the aortic arch. Cardiac silhouette moderately enlarged. Pulmonary vascular promin ence is similar in degree as on prior exam. Persistent congestive changes, right greater than left. B ronchial wall cuffing noted. Bibasilar opacities more so on the left. This may in part relate to card iomegaly. Trace pleural effusions not excluded. No pneumothorax. Degenerative changes of the right gl enohumeral joint. Left shoulder arthroplasty. Upper abdomen normal. IMPRESSION: 1. Appropriately positioned lines and tubes. 2. Cardiomegaly with volume overload and congestive change. This has not improved from prior. 3. Bibasilar infiltrates could suggest mild edema, aspiration, or atelectasis. Infection not exclude d. ACT 112: Negative or not required by law. Electronically signed by: Gavino Stephen M.D. 01/14/2020 7:45 AM
[2020-01-14] MEDS: LACTOBACILLUS ACIDOPHILUS (FLORANEX) TAB PO SCH (09:27)
[2020-01-14] MEDS: ASPIRIN 81 MG CHEW NG SCH (09:28)
[2020-01-14] MEDS: INSULIN GLARGINE SOLOSTAR 100 UNITS/ML 3 ML PEN SC SCH (09:29)
[2020-01-14] MEDS: DOCUSATE SODIUM/SENNA 50/8.6MG TAB PO SCH ×2 (09:30→21:03)
[2020-01-14] MEDS: MONTELUKAST SODIUM 10 MG TABLET NG SCH (09:30)
[2020-01-14] MEDS: OSELTAMIVIR PHOSPHATE SUSP 30 MG/5 ML UDP NG SCH (09:31)
[2020-01-14] MEDS: DOXYCYCLINE HYCLATE 100 MG in DEXTROSE 5% 100 ML IV SCH ×2 (09:32→21:03)
--- NOTE | 2020-01-14 10:06 | Critical Care Progress Note ---
Date of Service January 14, 2020 Assessment & Plan (1) Sepsis: Admitted to intensive care unit: Reason Critically Ill: 64-year-old female presenting with influenza and subsequent development of RIGHT-sided pneumonia with sepsis requiring vasopressors as well as BiPAP for oxygenation. Had worsening respiratory failure and bradycardia requiring intubation on 01/13/20. Due to oliguria and worsening DIANNE, a dialysis catheter was also placed and patient underwent dialysis removing 2L of fluid. NEURO - CAM ICU: Negative Sedation: Fentanyl DIANNE -Appears to have significantly improved at this point in time. -Patient able to follow commands -Likely was secondary to her worsening uremia yesterday. -CT Head was negative CARDIAC/VASCULAR - Hypotension: -Secondary to sepsis syndrome vs CCB or Beta block overdose -EKG demonstrated normal sinus rhythm with conduction delay and winding complex. QTc 506 ms. Avoid QTC prolonging agents. -Initially Received 2 L IV fluids and resuscitative efforts -Patient given 1mg calcium chloride and 1/2 mg atropine yesterday which showed improvement of her rate to high 50's -Echo was relatively normal. -Patient was given dobutamine which improved HR, but may be contributing to hypotension, will DC today. -Will continue to hold Amiodarone and Metoprol at this time as patient still -Currently requiring Levofed gtt Hypertension, hyperlipidemia, A. fib: -Hold antihypertensive at this point. -DC warfarin as patient supratherapeutic, will transition to Hep or Lovenox when INR <1.5 -Continue INR checks. -Continue to montior on tele -Continue ASA and Atorvastatin RESPIRATORY - Acute on chronic hypoxic respiratory failure: -Patient uses a CPAP at home -In the setting of RIGHT lower lobe pneumonia with positive influenza A. -Initial ABG upon arrival shows more of a metabolic acidosis picture. Not retaining CO2 at this time. -Repeat ABGs as needed. -Intubated, Vent settings AC / 35% O2 / 350 TV / 20 RR / 5 PEEP -Continue home Duoneb, pulmicort Right lower lobe pneumonia in the setting of Influenza A -Continue Tamiflu day 01/11 -Continue coverage with Zosyn, Linezolid, Doxycycine GI/NUTRITION - -N.p.o. at this time. -will start Trophic feeds at 20cc -gastroprotection Famotidine 20mg qd RENAL/LYTES - Acute renal failure: -Patient has required emergent hemodialysis in the past. -Likely secondary to ATN -Dialysis catheter placed yesterday, patient was dialyzed for 2L -Nephrology following, appreciate recs -Continue to monitor electrolytes -Cr showed improvement to 2.71 today after dialysis 01/13/20 - Heard in place - Strict I&Os. History of ESBL UTIs: Urinalysis negative. Currently on Zosyn which showed sensitivity in the past. ENDO - Diabetes BSGs per unit protocol. ISS --> gtt per unit policy. Hypothyroidism: Continue home Levothyroxine 125mcg qd HEME - Baseline anemia. Continue to trend in the setting of illness. -Hold ferrous sulfate in setting of infection -DC Warfarin, patient supratherapeutic. ID - Sepsis secondary to pulmonary source: Initially treated with cefepime in the emergency department. Currently broadened to Zosyn, Linezolid, Doxycycline Influenza A: Continue with Tamiflu day 01/11 Chronic wound of the RIGHT hip: -Patient has been on Augmentin longstanding -Surgery and Ortho consulted, wound following -Continue with current regiment as patient should be adequately covered on Zosyn, Linezolid, and Doxy LINES/IV ACCESS - PIVs x1 RIGHT-sided a port R dialysis cath L arm A line Heard OJ DVT PROPHYLAXIS - DC Coumadin, transition to Hep or Lovenox when INR <1.5 SCDs Code: Full Thank you for allowing us to participate in the care of this patient. Please refer to my attending physician's documentation for any further recommendations. (2) Influenza A: (3) Pneumonia: (4) Acute kidney injury: Admission and Anticipated Discharge Date Admission Date: January 13, 2020 Supervising Physician Co-Signing Physician Notes Patient seen and examined. Discussed with cardiology and nephrology and bedside nurse as well as with FP resident. Agree with his assessment and plan as noted. Patient has had decreased ventilator settings. She is comfortably sedated. Continue mechanical ventilation today. Continue Tamiflu for influenza. Hemodynamics are improving. She continues on broad-spectrum antibiotics. There is no surgical intervention for the left hip from an orthopedic standpoint or general surgery standpoint. Recommended chronic suppressive antimicrobial therapy with ID consultation. She is already been on this for quite some time. We have held her beta-jaci and amiodarone given her bradycardia. We will try and wean Levophed as tolerated off. Discontinue dobutamine. We will initiate trophic tube feeds. May advanced as tolerated to goal. Hold with any plans for dialysis today. Will reassess in the next 24 hours. Have been unable to contact any family members who are willing to act as power of associate attorney for healthcare. This may be an ongoing issue. Given the patient's debilitated and chronically ill state, consultation with palliative care may be appropriate to assist in defining goals of therapy. Subjective Patient seen at the bedside this morning. Patient able to be aroused and follows command. Able to answer by nodding and shaking her head that she was not in any pain currently, did not have chest pain, no abdominal pain, no nausea, no headache, no shortness of breath. Review of Systems Review of Systems: Other Limited ROS secondary to patient intubation, however patient does deny chest pain, sob, abdominal pain, headache, nausea, generalized pain. Specifically does deny R thigh/leg pain when asked. Physical Exam Constitutional: + morbidly obese and cooperative; no acute distress Eyes: PERRL, conjunctivae normal, anicteric sclerae ENMT: Ears: no hearing impairment ETT secured in place. Neck: + thick neck; no neck crepitus and neck nontender Respiratory: no labored breathing Auscultation: + wheezes (diffuse wheezes throughout ) Cardiovascular: Rate/Rhythm: regular rate (68bpm) Heart Sounds: no murmur Vessels: no carotid bruit Extremities: no edema (though difficult to assess due to patient's body habitus ) Chest (Breasts): Chest: + vascular access device or port (on R ) Gastrointestinal (Abdomen): normal bowel sounds, soft, nontender, no hepatosplenomegaly Skin: + wound (Draining on R lateral thigh, chronic) Neurologic: awake Cranial Nerves: PERRL and normal accommodation Able to follow commands Genitourinary: Heard catheter in place Results & Data ([facility]) Vital Signs (Past 12 Hours) Vital Signs Temp Pulse Resp BP Pulse Ox 01/14/20 09:00 68 90 01/14/20 08:36 78 81/66 L 89 L 01/14/20 08:30 76 91 01/14/20 08:00 36.9 C 76 96 01/14/20 07:35 68 110/48 L 93 01/14/20 07:30 68 92 01/14/20 07:00 83 90 01/14/20 06:35 67 121/51 L 92 01/14/20 06:30 67 92 01/14/20 06:15 68 93 01/14/20 06:00 68 93 01/14/20 05:45 69 92 01/14/20 05:35 70 115/49 L 92 01/14/20 05:32 80 24 94 01/14/20 05:30 72 92 01/14/20 05:15 76 92 01/14/20 05:00 82 100 01/14/20 04:45 68 91 01/14/20 04:35 70 112/51 L 91 01/14/20 04:30 69 92 01/14/20 04:15 71 91 01/14/20 04:00 36.9 C 71 91 01/14/20 03:45 68 92 01/14/20 03:35 71 114/55 L 91 01/14/20 03:30 71 92 01/14/20 03:15 74 91 01/14/20 03:00 79 93 01/14/20 02:45 69 93 01/14/20 02:42 68 20 92 01/14/20 02:35 71 121/50 L 93 01/14/20 02:30 70 94 01/14/20 02:15 69 93 01/14/20 02:00 71 94 01/14/20 01:45 67 91 01/14/20 01:35 69 127/74 91 01/14/20 01:30 66 91 01/14/20 01:15 69 91 01/14/20 01:00 69 91 01/14/20 00:45 69 92 01/14/20 00:35 69 126/46 L 93 01/14/20 00:30 70 92 01/14/20 00:18 75 21 94 01/14/20 00:15 72 94 01/14/20 00:00 82 96 01/13/20 23:52 62 01/13/20 23:46 37.0 C 01/13/20 23:45 73 94 01/13/20 23:35 79 119/59 L 97 01/13/20 23:30 83 96 01/13/20 23:15 65 93 01/13/20 23:00 63 94 01/13/20 22:45 65 94 01/13/20 22:35 64 130/55 L 93 01/13/20 22:30 64 94 01/13/20 22:15 61 94 Resident Activity Tracking Resident Involvement: Resident Care Provided Care Provided: Adult Hospital Medicine (1) Sepsis Sepsis acute organ dysfunction status: unspecified Sepsis type: sepsis due to unspecified organism Qualified Code(s): A41.9 - Sepsis, unspecified organism (2) Pneumonia Laterality: right Lung location: lower lobe of lung Pneumonia type: due to unspecified organism Qualified Code(s): J18.9 - Pneumonia, unspecified organism
[2020-01-14] MEDS ORDERED: LANSOPRAZOLE 30 MG SOLTAB OG SCH (10:30)
--- NOTE | 2020-01-14 10:59 | Nephrology Progress Note ---
Date of Service January 14, 2020 Assessment & Plan (1) Acute kidney injury: 64-year-old female with morbid obesity, DMII, atrial fibrillation, Qtc >500, OA/DJD with chronic right hip wound following right SANGITA admitted to sepsis due to influenza pneumonia. Hospital course complicated by hemodynamic instability and severe DIANNE. Bsaeline creatinine 1.2 mg/dL. DIANNE is clinically consistent with ATN in the setting of pneumonia/sepsis with associated hemodynamic instability (hypotension, bradycardia). Urine microscopy acellular; +hyaline casts. Emergent HD treatment performed 01/12 in the setting of volume overload and oliguria. Urine output improving slightly this morning. Electrolytes are acceptable. Obligatory intake minimal. The patient remains on levophed for BP support. There is no need for additional HD at this time. Will re-evaluate tomorrow. No renal imaging performed this admission. Heard remains intact. Urine output improving. Furosemide 40 mg BID at home has been held. Lisinopril held due to DIANNE. Sitagliptin and metformin held in setting of DIANNE. Metoprolol and amiodarone held due to bradycardia and hypotension. Medications are appropriate for kidney function. Plan of care was discussed with the asthma educator this morning. Document strict I/O's. Repeat metabolic profile tomorrow AM. (2) Pneumonia involving right lung: (3) Influenza A: Subjective No acute events overnight. Tolerated HD well yesterday. Net UF 2 L. Remains on levophed gtt. Oxygenating well. Fentanyl gtt restarted. Sleeping at the time of my assessment. I discussed the plan of care with Dr. Looney. No plan to extubate today. FIO2 35%. Review of Systems Review of Systems: Unobtainable due to cognitive status Physical Exam Constitutional: well developed, + obese and + mechanically ventilated; no acute distress Eyes: no scleral abnormality and no corneal abnormality ENMT: ETT Neck: normal visual inspection, trachea midline and + thick neck non- tunneled RIJ HD catheter Respiratory: Auscultation: lungs clear to auscultation bilaterally and + crackles Cardiovascular: Rate/Rhythm: regular rate Heart Sounds: normal S1 and norm al S2 Extremities: no edema Musculoskeletal: Extremities: no cyanosis and no clubbing Skin: normal turgor; no lesions Neurologic: Motor/Sensory: no tremor and no asterixis Psychiatric: sedated, wakes to stimuli and follows basic commands per report Results & Data Vital Signs (Past 12 Hours) Vital Signs Temp Pulse Resp BP Pulse Ox 01/14/20 10:36 65 88 L 01/14/20 10:30 63 92 01/14/20 10:00 58 L 91 01/14/20 09:36 63 109/57 L 88 L 01/14/20 09:30 57 L 93 01/14/20 09:00 68 90 01/14/20 08:36 78 81/66 L 89 L 01/14/20 08:30 76 91 01/14/20 08:00 36.9 C 76 96 01/14/20 07:35 68 110/48 L 93 01/14/20 07:30 68 92 01/14/20 07:00 83 90 01/14/20 06:35 67 121/51 L 92 01/14/20 06:30 67 92 01/14/20 06:15 68 93 01/14/20 06:00 68 93 01/14/20 05:45 69 92 01/14/20 05:35 70 115/49 L 92 01/14/20 05:32 80 24 94 01/14/20 05:30 72 92 01/14/20 05:15 76 92 01/14/20 05:00 82 100 01/14/20 04:45 68 91 01/14/20 04:35 70 112/51 L 91 01/14/20 04:30 69 92 01/14/20 04:15 71 91 01/14/20 04:00 36.9 C 71 91 01/14/20 03:45 68 92 01/14/20 03:35 71 114/55 L 91 01/14/20 03:30 71 92 01/14/20 03:15 74 91 01/14/20 03:00 79 93 01/14/20 02:45 69 93 01/14/20 02:42 68 20 92 01/14/20 02:35 71 121/50 L 93 01/14/20 02:30 70 94 01/14/20 02:15 69 93 01/14/20 02:00 71 94 01/14/20 01:45 67 91 01/14/20 01:35 69 127/74 91 01/14/20 01:30 66 91 01/14/20 01:15 69 91 01/14/20 01:00 69 91 01/14/20 00:45 69 92 01/14/20 00:35 69 126/46 L 93 01/14/20 00:30 70 92 01/14/20 00:18 75 21 94 01/14/20 00:15 72 94 01/14/20 00:00 82 96 01/13/20 23:52 62 01/13/20 23:46 37.0 C 01/13/20 23:45 73 94 01/13/20 23:35 79 119/59 L 97 01/13/20 23:30 83 96 01/13/20 23:15 65 93 01/13/20 23:00 63 94 Laboratory Results Laboratory Results - last 24 hr 01/13/20 01/13/20 01/13/20 10:13 11:37 12:03 WBC RBC Hgb POC Hgb 8.8 L Hct POC Hct 26 L MCV MCH MCHC RDW Std Deviation RDW Coeff of Mehnaz Plt Count MPV Immature Gran % (Auto) Neut % (Auto) Lymph % (Auto) Murray % (Auto) Eos % (Auto) Baso % (Auto) Immature Gran # (Auto) Neut # (Auto) Lymph # (Auto) Murray # (Auto) Eos # (Auto) Baso # (Auto) PT INR Sample Site Art Line POC pH 7.19 L* POC pCO2 64 H POC pO2 86 POC HCO3 24 POC Total CO2 26 POC Base Excess -4.0 ABG pH ABG pH (Temp Correct) 7.194 L* ABG pCO2 ABG pCO2 (Temp Corrct 63 H ABG pO2 POC ABG pO2 at Pt Temp 84 ABG HCO3 ABG O2 Saturation ABG Base Excess Darrel Test NA Barometric Pressure Oxygen Given O2 Delivery Device Ventilator POC O2 Rate 16 Minute Ventilation 4.7 POC FiO2 50 Tidal Volume 290 PEEP 8 POC Sodium 131 L Sodium 131 L POC Potassium 4.9 Potassium 4.8 Chloride 98 Carbon Dioxide 22 Anion Gap 11.0 BUN 84 H Creatinine 4.78 H* Est Cr Clr Drug Dosing 17.0 Est GFR ( Amer) 10.3 Est GFR (Non-Af Amer) 8.9 BUN/Creatinine Ratio 17.8 Glucose 207 H POC Glucose 220 H POC Glucose (other) Lactate Calcium 7.3 L Phosphorus Magnesium Total Creatine Kinase Albumin Procalcitonin Hep Bs Antigen Hep Bs Antibody Hep Bs Antibody, Quant Hep B Core IgM Ab 01/13/20 01/13/20 01/13/20 13:39 13:42 16:04 WBC RBC Hgb POC Hgb 8.5 L Hct POC Hct 25 L MCV MCH MCHC RDW Std Deviation RDW Coeff of Mehnaz Plt Count MPV Immature Gran % (Auto) Neut % (Auto) Lymph % (Auto) Murray % (Auto) Eos % (Auto) Baso % (Auto) Immature Gran # (Auto) Neut # (Auto) Lymph # (Auto) Murray # (Auto) Eos # (Auto) Baso # (Auto) PT INR Sample Site Art Line POC pH 7.20 L POC pCO2 61 H POC pO2 95 POC HCO3 24 POC Total CO2 25 POC Base Excess -5.0 ABG pH ABG pH (Temp Correct) 7.204 L ABG pCO2 ABG pCO2 (Temp Corrct 59 H ABG pO2 POC ABG pO2 at Pt Temp 92 ABG HCO3 ABG O2 Saturation ABG Base Excess Darrel Test NA Barometric Pressure Oxygen Given O2 Delivery Device Ventilator POC O2 Rate 18 Minute Ventilation 6.3 POC FiO2 50 Tidal Volume 350 PEEP 8 POC Sodium 131 L Sodium POC Potassium 4.8 Potassium Chloride Carbon Dioxide Anion Gap BUN Creatinine Est Cr Clr Drug Dosing Est GFR ( Amer) Est GFR (Non-Af Amer) BUN/Creatinine Ratio Glucose POC Glucose POC Glucose (other) 220 H Lactate Calcium Phosphorus Magnesium Total Creatine Kinase Albumin Procalcitonin Hep Bs Antigen Neg Hep Bs Antibody Non-Immune Hep Bs Antibody, Quant < 3.10 L Hep B Core IgM Ab 01/13/20 01/13/20 01/13/20 16:04 16:13 17:25 WBC RBC Hgb POC Hgb Hct POC Hct MCV MCH MCHC RDW Std Deviation RDW Coeff of Mehnaz Plt Count MPV Immature Gran % (Auto) Neut % (Auto) Lymph % (Auto) Murray % (Auto) Eos % (Auto) Baso % (Auto) Immature Gran # (Auto) Neut # (Auto) Lymph # (Auto) Murray # (Auto) Eos # (Auto) Baso # (Auto) PT INR Sample Site POC pH POC pCO2 POC pO2 POC HCO3 POC Total CO2 POC Base Excess ABG pH ABG pH (Temp Correct) ABG pCO2 ABG pCO2 (Temp Corrct ABG pO2 POC ABG pO2 at Pt Temp ABG HCO3 ABG O2 Saturation ABG Base Excess Darrel Test Barometric Pressure Oxygen Given O2 Delivery Device POC O2 Rate Minute Ventilation POC FiO2 Tidal Volume PEEP POC Sodium Sodium POC Potassium Potassium Chloride Carbon Dioxide Anion Gap BUN Creatinine Est Cr Clr Drug Dosing Est GFR ( Amer) Est GFR (Non-Af Amer) BUN/Creatinine Ratio Glucose POC Glucose POC Glucose (other) 175 H 122 H Lactate Calcium Phosphorus Magnesium Total Creatine Kinase Albumin Procalcitonin Hep Bs Antigen Hep Bs Antibody Hep Bs Antibody, Quant Hep B Core IgM Ab Pending 01/13/20 01/13/20 01/13/20 18:12 18:34 19:26 WBC RBC Hgb POC Hgb Hct POC Hct MCV MCH MCHC RDW Std Deviation RDW Coeff of Mehnaz Plt Count MPV Immature Gran % (Auto) Neut % (Auto) Lymph % (Auto) Murray % (Auto) Eos % (Auto) Baso % (Auto) Immature Gran # (Auto) Neut # (Auto) Lymph # (Auto) Murray # (Auto) Eos # (Auto) Baso # (Auto) PT INR Sample Site POC pH POC pCO2 POC pO2 POC HCO3 POC Total CO2 POC Base Excess ABG pH ABG pH (Temp Correct) ABG pCO2 ABG pCO2 (Temp Corrct ABG pO2 POC ABG pO2 at Pt Temp ABG HCO3 ABG O2 Saturation ABG Base Excess Darrel Test Barometric Pressure Oxygen Given O2 Delivery Device POC O2 Rate Minute Ventilation POC FiO2 Tidal Volume PEEP POC Sodium Sodium POC Potassium Potassium Chloride Carbon Dioxide Anion Gap BUN Creatinine Est Cr Clr Drug Dosing Est GFR ( Amer) Est GFR (Non-Af Amer) BUN/Creatinine Ratio Glucose POC Glucose POC Glucose (other) 108 H 103 H 102 H Lactate Calcium Phosphorus Magnesium Total Creatine Kinase Albumin Procalcitonin Hep Bs Antigen Hep Bs Antibody Hep Bs Antibody, Quant Hep B Core IgM Ab 01/13/20 01/14/20 01/14/20 23:40 04:39 04:39 WBC RBC Hgb POC Hgb Hct POC Hct MCV MCH MCHC RDW Std Deviation RDW Coeff of Mehnaz Plt Count MPV Immature Gran % (Auto) Neut % (Auto) Lymph % (Auto) Murray % (Auto) Eos % (Auto) Baso % (Auto) Immature Gran # (Auto) Neut # (Auto) Lymph # (Auto) Murray # (Auto) Eos # (Auto) Baso # (Auto) PT 35.0 H INR 3.6 H Sample Site POC pH POC pCO2 POC pO2 POC HCO3 POC Total CO2 POC Base Excess ABG pH ABG pH (Temp Correct) ABG pCO2 ABG pCO2 (Temp Corrct ABG pO2 POC ABG pO2 at Pt Temp ABG HCO3 ABG O2 Saturation ABG Base Excess Darrel Test Barometric Pressure Oxygen Given O2 Delivery Device POC O2 Rate Minute Ventilation POC FiO2 Tidal Volume PEEP POC Sodium Sodium 132 L POC Potassium Potassium 3.9 D Chloride 97 L Carbon Dioxide 27 Anion Gap 8.0 BUN 40 H D Creatinine 2.71 H D Est Cr Clr Drug Dosing 29.8 Est GFR ( Amer) 20.5 Est GFR (Non-Af Amer) 17.7 BUN/Creatinine Ratio 14.9 Glucose 179 H POC Glucose POC Glucose (other) 161 H Lactate Calcium 7.8 L Phosphorus 4.6 D Magnesium 2.1 Total Creatine Kinase 573 H Albumin 1.9 L Procalcitonin Hep Bs Antigen Hep Bs Antibody Hep Bs Antibody, Quant Hep B Core IgM Ab 01/14/20 01/14/20 01/14/20 04:39 04:39 04:39 WBC 13.08 H RBC 3.07 L Hgb 8.3 L POC Hgb Hct 26.2 L POC Hct MCV 85.3 MCH 27.0 MCHC 31.7 L RDW Std Deviation 56.1 H RDW Coeff of Mehnaz 18.5 H Plt Count 280 MPV 9.3 Immature Gran % (Auto) 0.5 Neut % (Auto) 91.0 Lymph % (Auto) 3.4 Murray % (Auto) 4.6 Eos % (Auto) 0.4 Baso % (Auto) 0.1 Immature Gran # (Auto) 0.06 H Neut # (Auto) 11.91 H Lymph # (Auto) 0.45 L Murray # (Auto) 0.60 H Eos # (Auto) 0.05 Baso # (Auto) 0.01 PT INR Sample Site POC pH POC pCO2 POC pO2 POC HCO3 POC Total CO2 POC Base Excess ABG pH ABG pH (Temp Correct) ABG pCO2 ABG pCO2 (Temp Corrct ABG pO2 POC ABG pO2 at Pt Temp ABG HCO3 ABG O2 Saturation ABG Base Excess Darrel Test Barometric Pressure Oxygen Given O2 Delivery Device POC O2 Rate Minute Ventilation POC FiO2 Tidal Volume PEEP POC Sodium Sodium POC Potassium Potassium Chloride Carbon Dioxide Anion Gap BUN Creatinine Est Cr Clr Drug Dosing Est GFR ( Amer) Est GFR (Non-Af Amer) BUN/Creatinine Ratio Glucose POC Glucose POC Glucose (other) Lactate 0.6 Calcium Phosphorus Magnesium Total Creatine Kinase Albumin Procalcitonin 7.87 H Hep Bs Antigen Hep Bs Antibody Hep Bs Antibody, Quant Hep B Core IgM Ab 01/14/20 01/14/20 04:39 05:43 WBC RBC Hgb POC Hgb Hct POC Hct MCV MCH MCHC RDW Std Deviation RDW Coeff of Mehnaz Plt Count MPV Immature Gran % (Auto) Neut % (Auto) Lymph % (Auto) Murray % (Auto) Eos % (Auto) Baso % (Auto) Immature Gran # (Auto) Neut # (Auto) Lymph # (Auto) Murray # (Auto) Eos # (Auto) Baso # (Auto) PT INR Sample Site POC pH POC pCO2 POC pO2 POC HCO3 POC Total CO2 POC Base Excess ABG pH 7.34 L ABG pH (Temp Correct) ABG pCO2 49 H ABG pCO2 (Temp Corrct ABG pO2 62 L POC ABG pO2 at Pt Temp ABG HCO3 26 H ABG O2 Saturation 89.3 L ABG Base Excess 0.1 Darrel Test Pos Barometric Pressure 737.0 Oxygen Given 9L O2 Delivery Device POC O2 Rate Minute Ventilation POC FiO2 Tidal Volume PEEP POC Sodium Sodium POC Potassium Potassium Chloride Carbon Dioxide Anion Gap BUN Creatinine Est Cr Clr Drug Dosing Est GFR ( Amer) Est GFR (Non-Af Amer) BUN/Creatinine Ratio Glucose POC Glucose POC Glucose (other) 172 H Lactate Calcium Phosphorus Magnesium Total Creatine Kinase Albumin Procalcitonin Hep Bs Antigen Hep Bs Antibody Hep Bs Antibody, Quant Hep B Core IgM Ab PG Care Time/CCT Total # of Minutes Spent Total Time Spent with Patient: Total time spent is greater than 50% in coordination of care (as documented) at patient's floor/unit and/or counseling patient: Coding Level of Care Code 60534 Subseq Hosp Care Lvl 3 Diagnoses Acute kidney injury N17.9 Pneumonia involving right lung J18.9 Influenza A J10.1
--- NOTE | 2020-01-14 11:45 | Billing Data ---
Date of Service January 14, 2020 Patient seen and examined. EMR reviewed. Agree with assessment and plan as noted by family practice resident. Coding Level of Care Code 12584 Subseq Hosp Care Lvl 3
[2020-01-14] MEDS: FAMOTIDINE 20 MG in SYRINGE 3 ML IV SCH (11:50)
[2020-01-14] MEDS: PIPERACILLIN/TAZOBACTAM 4.5 GM in DEXTROSE 5% 100 ML IV SCH ×2 (11:53→21:02)
[2020-01-14] MEDS: IMPACT LIQD 1.0 CAL 1,000 ML BAG OG SCH (12:55)
--- NOTE | 2020-01-14 16:38 | Hospitalist Progress Note ---
Date of Service January 14, 2020 Assessment & Plan (1) Acute and chronic respiratory failure with hypoxia: Secondary to right middle and lower lobe presumptively aspiration pneumonia, and secondarily pulmonary edema intubated on 01/12 because she was failing on BiPAP, became obtunded, hypercarbic remain intubated today management per Dr. Looney (2) Pneumonia involving right lung: Concern regarding possibility of aspiration pneumonia. continue Doxycycline and Zosyn IV per pulmonary (3) Pulmonary edema: Mild pulmonary edema secondary to third spacing due to hypoalbuminemia HD on 01/13 with UF, pulmonary edema resolved (4) Acute renal failure (ARF): Creatinine upon admission 4.64, with baseline 1.16-1.84. Cr trended upward HD catheter placed on 01/12 and patient had HD on 01/12 in the afternoon nephrology following, no need for HD today, Cr is down, electrolytes stable (5) Paroxysmal atrial fibrillation: Continue warfarin 5 mg p.o. daily. INR is therapeutic at 2.6. rates are stable, actually with bradycardia, holding metoprolol and amiodarone (6) Influenza A: Continue Tamiflu for 5 day course (7) Stage II pressure ulcer of buttock: Consult wound care for 3 documented lesions by wound care outpatient (8) DM type 2 (diabetes mellitus, type 2): insulin drip started on 01/12 for hyperglycemia and critically ill management per pharmacy (9) Chronic anticoagulation: On warfarin as noted above (10) Hypoalbuminemia: Treating with IV albumin as noted above (11) Hypothyroid: Continue levothyroxine 125 mcg p.o. daily (12) Abnormal LFTs: May be secondary to influenza versus passive hepatic congestion. Follow serially, trending down (13) Gram negative septicemia: developed shock, requiring Levophed for pressor support continue Zosyn, follow up final cultures Admission and Anticipated Discharge Date Admission Date: January 13, 2020 Subjective patient is sedated and intubated no major changes today discussed with Dr. Looney, will keep intubated today discussed with Dr. Pineda, no need for HD today reviewed labs Review of Systems Review of Systems: Unobtainable due to endotracheal tube Physical Exam Constitutional: well developed, well nourished and + morbidly obese; no acute distress Eyes: eyes closed, sedated ENMT: external ear and nose normal, oropharynx normal (ET tube) Neck: trachea midline, no thyromegaly Respiratory: Auscultation: + diminished lung sounds and + crackles; no rhonchi and no wheezes Cardiovascular: Rate/Rhythm: regular rhythm and + bradycardic Heart Sounds: normal S1 and normal S2; no murmur Extremities: normal capillary refill and + edema Gastrointestinal (Abdomen): normal bowel sounds, soft, nontender, no hepatosplenomegaly Musculoskeletal: Head/Neck/Chest: normocephalic and head atraumatic Extremities: no muscle atrophy, no cyanosis and no clubbing Skin: no rashes, warm and dry Neurologic: no focal motor deficits and + not awake (sedated) Psychiatric: Orientation: + not alert and + not oriented x 3 Results & Data ([facility]) Vital Signs (Past 12 Hours) Vital Signs Temp Pulse Resp BP Pulse Ox 01/14/20 15:35 52 L 106/44 L 93 01/14/20 15:30 53 L 93 01/14/20 15:10 54 L 01/14/20 15:00 54 L 93 01/14/20 14:35 54 L 119/52 L 93 01/14/20 14:30 55 L 93 01/14/20 14:00 55 L 93 01/14/20 13:35 54 L 114/64 93 01/14/20 13:30 55 L 93 01/14/20 13:00 54 L 92 01/14/20 12:36 56 L 119/51 L 93 01/14/20 12:30 57 L 93 01/14/20 12:00 60 97 01/14/20 11:36 63 93/50 L 94 01/14/20 11:30 61 91 01/14/20 11:00 57 L 93 01/14/20 10:47 61 122/47 L 92 01/14/20 10:36 65 88 L 01/14/20 10:30 63 92 01/14/20 10:00 58 L 91 01/14/20 09:36 63 109/57 L 88 L 01/14/20 09:30 57 L 93 01/14/20 09:00 68 90 01/14/20 08:36 78 81/66 L 89 L 01/14/20 08:30 76 91 01/14/20 08:00 36.9 C 76 96 01/14/20 07:35 68 110/48 L 93 01/14/20 07:30 68 92 01/14/20 07:21 67 01/14/20 07:00 83 90 01/14/20 06:35 67 121/51 L 92 01/14/20 06:30 67 92 01/14/20 06:15 68 93 01/14/20 06:00 68 93 01/14/20 05:45 69 92 01/14/20 05:35 70 115/49 L 92 01/14/20 05:32 80 24 94 01/14/20 05:30 72 92 01/14/20 05:15 76 92 01/14/20 05:00 82 100 01/14/20 04:45 68 91 Laboratory Results Laboratory Results - last 24 hr 01/13/20 01/14/20 01/14/20 23:40 04:39 04:39 WBC RBC Hgb Hct MCV MCH MCHC RDW Std Deviation RDW Coeff of Mehnaz Plt Count MPV Immature Gran % (Auto) Neut % (Auto) Lymph % (Auto) [place] % (Auto) Eos % (Auto) Baso % (Auto) Immature Gran # (Auto) Neut # (Auto) Lymph # (Auto) [place] # (Auto) Eos # (Auto) Baso # (Auto) PT 35.0 H INR 3.6 H ABG pH ABG pCO2 ABG pO2 ABG HCO3 ABG O2 Saturation ABG Base Excess Darrel Test Barometric Pressure Oxygen Given Sodium 132 L Potassium 3.9 D Chloride 97 L Carbon Dioxide 27 Anion Gap 8.0 BUN 40 H D Creatinine 2.71 H D Est Cr Clr Drug Dosing 29.8 Est GFR ( Amer) 20.5 Est GFR (Non-Af Amer) 17.7 BUN/Creatinine Ratio 14.9 Glucose 179 H POC Glucose (other) 161 H Lactate Calcium 7.8 L Phosphorus 4.6 D Magnesium 2.1 Total Creatine Kinase 573 H Albumin 1.9 L Procalcitonin 01/14/20 01/14/20 01/14/20 04:39 04:39 04:39 WBC 13.08 H RBC 3.07 L Hgb 8.3 L Hct 26.2 L MCV 85.3 MCH 27.0 MCHC 31.7 L RDW Std Deviation 56.1 H RDW Coeff of Mehnaz 18.5 H Plt Count 280 MPV 9.3 Immature Gran % (Auto) 0.5 Neut % (Auto) 91.0 Lymph % (Auto) 3.4 [place] % (Auto) 4.6 Eos % (Auto) 0.4 Baso % (Auto) 0.1 Immature Gran # (Auto) 0.06 H Neut # (Auto) 11.91 H Lymph # (Auto) 0.45 L [place] # (Auto) 0.60 H Eos # (Auto) 0.05 Baso # (Auto) 0.01 PT INR ABG pH ABG pCO2 ABG pO2 ABG HCO3 ABG O2 Saturation ABG Base Excess Darrel Test Barometric Pressure Oxygen Given Sodium Potassium Chloride Carbon Dioxide Anion Gap BUN Creatinine Est Cr Clr Drug Dosing Est GFR ( Amer) Est GFR (Non-Af Amer) BUN/Creatinine Ratio Glucose POC Glucose (other) Lactate 0.6 Calcium Phosphorus Magnesium Total Creatine Kinase Albumin Procalcitonin 7.87 H 01/14/20 01/14/20 01/14/20 04:39 05:43 11:46 WBC RBC Hgb Hct MCV MCH MCHC RDW Std Deviation RDW Coeff of Mehnaz Plt Count MPV Immature Gran % (Auto) Neut % (Auto) Lymph % (Auto) [place] % (Auto) Eos % (Auto) Baso % (Auto) Immature Gran # (Auto) Neut # (Auto) Lymph # (Auto) [place] # (Auto) Eos # (Auto) Baso # (Auto) PT INR ABG pH 7.34 L ABG pCO2 49 H ABG pO2 62 L ABG HCO3 26 H ABG O2 Saturation 89.3 L ABG Base Excess 0.1 Darrel Test Pos Barometric Pressure 737.0 Oxygen Given 9L Sodium Potassium Chloride Carbon Dioxide Anion Gap BUN Creatinine Est Cr Clr Drug Dosing Est GFR ( Amer) Est GFR (Non-Af Amer) BUN/Creatinine Ratio Glucose POC Glucose (other) 172 H 174 H Lactate Calcium Phosphorus Magnesium Total Creatine Kinase Albumin Procalcitonin 01/14/20 17:47 WBC RBC Hgb Hct MCV MCH MCHC RDW Std Deviation RDW Coeff of Mehnaz Plt Count MPV Immature Gran % (Auto) Neut % (Auto) Lymph % (Auto) [place] % (Auto) Eos % (Auto) Baso % (Auto) Immature Gran # (Auto) Neut # (Auto) Lymph # (Auto) [place] # (Auto) Eos # (Auto) Baso # (Auto) PT INR ABG pH ABG pCO2 ABG pO2 ABG HCO3 ABG O2 Saturation ABG Base Excess Darrel Test Barometric Pressure Oxygen Given Sodium Potassium Chloride Carbon Dioxide Anion Gap BUN Creatinine Est Cr Clr Drug Dosing Est GFR ( Amer) Est GFR (Non-Af Amer) BUN/Creatinine Ratio Glucose POC Glucose (other) 167 H Lactate Calcium Phosphorus Magnesium Total Creatine Kinase Albumin Procalcitonin Medications Administered Current Inpatient Medications Acetaminophen (Tylenol) 650 mg PO Q6H PRN PRN Reason: Fever Stop: 02/12/20 02:07 Aspirin (Aspirin Chew) 81 mg NG DAILY [facility] Stop: 02/12/20 12:59 Last Admin: 01/14/20 09:28 Dose: 81 mg Documented by: Atorvastatin Calcium (Lipitor) 40 mg NG HS [facility] Stop: 02/12/20 20:59 Last Admin: 01/14/20 21:02 Dose: 40 mg Documented by: Bisacodyl (Dulcolax) 10 mg OH DAILY PRN PRN Reason: Constipation Stop: 02/12/20 02:07 Budesonide (Pulmicort Respules) 0.5 mg NEB BIDR [facility] Stop: 02/12/20 06:59 Last Admin: 01/14/20 19:34 Dose: 0.5 mg Documented by: Clotrimazole (Lotrimin 1%) 1 appln TOP Q8H [facility] Stop: 02/12/20 05:59 Last Admin: 01/14/20 21:03 Dose: 1 appln Documented by: Dextrose (Dextrose 50%) 25 - 50 ml IV UD PRN; Protocol PRN Reason: Hypoglycemia Protocol Stop: 02/12/20 02:07 Enteral Nutritional Formula (Impact 1.0 Andrzej) 1,000 ml OG UD [facility]; Protocol Stop: 02/13/20 10:14 Last Admin: 01/14/20 12:55 Dose: 1,000 ml Documented by: Ferrous Sulfate (Feosol) 325 mg PO DAILY [facility] Stop: 02/12/20 08:59 Last Admin: 01/13/20 10:28 Dose: Not Given Documented by: Fluticasone Propionate (Flonase) 2 sprays NA HS [facility] Stop: 02/12/20 20:59 Last Admin: 01/14/20 21:02 Dose: 2 sprays Documented by: Gabapentin (Neurontin) 600 mg PO TID [facility] Stop: 02/12/20 08:59 Last Admin: 01/13/20 10:28 Dose: Not Given Documented by: Glucagon (Glucagen) 1 mg SQ UD PRN; Protocol PRN Reason: Hypoglycemia Protocol Stop: 02/12/20 02:07 Glucose (Dex4 Glucose) 4 - 8 tabs PO UD PRN; Protocol PRN Reason: Hypoglycemia Protocol Stop: 02/12/20 02:07 Glucose (Glucose 40%) 15 - 30 gm PO UD PRN; Protocol PRN Reason: Hypoglycemia Protocol Stop: 02/12/20 02:07 Heparin Sodium (Porcine) (Heparin Sod 100 Unit/Ml Flush) 5 ml FLUSH PRN PRN PRN Reason: Flush Stop: 02/13/20 00:44 Doxycycline Hyclate 100 mg/ (Dextrose) 110 mls @ 50 mls/hr IV BID [facility] Stop: 01/20/20 08:59 Last Admin: 01/14/20 21:03 Dose: 50 mls/hr Documented by: Norepinephrine Bitartrate 8 mg (/ Dextrose) 508 mls @ 30.118 mls/hr IV .[id number] [facility]; Protocol Stop: 02/12/20 05:14 Last Titration: 01/14/20 19:03 Dose: 0.05 mcg/kg/min, 30.1 mls/hr Documented by: Fentanyl Citrate (Fentanyl Drip) 1,250 mcg in 250 mls @ 25 mls/hr IV .Q10H [facility]; Protocol Stop: 01/27/20 10:44 Last Titration: 01/14/20 19:03 Dose: 125 mcg/hr, 25 mls/hr Documented by: Famotidine 20 mg/ Syringe 5 mls @ 2.5 mls/min IV Q24H [facility] Stop: 02/12/20 10:59 Last Admin: 01/14/20 11:50 Dose: 2.5 mls/min Documented by: Piperacillin Sod/Tazobactam (Sod 4.5 gm/ Dextrose) 120 mls @ 30 mls/hr IV Q8H [facility]; Protocol Stop: 01/20/20 11:59 Last Admin: 01/14/20 21:02 Dose: 30 mls/hr Documented by: Insulin Aspart (Novolog Flexpen) 0 units SC Q4 [facility] Stop: 02/13/20 19:59 Last Admin: 01/14/20 21:14 Dose: 4 units Documented by: Insulin Glargine (Lantus Solostar Pen) 15 units SC DAILY [facility] Stop: 02/13/20 08:59 Last Admin: 01/14/20 09:29 Dose: 15 units Documented by: Lactobacillus Acidophilus (Floranex) 1 tab PO DAILY [facility] Stop: 02/12/20 12:59 Last Admin: 01/14/20 09:27 Dose: 1 tab Documented by: Levothyroxine Sodium (Synthroid) 125 mcg PO DAILYBB [facility] Stop: 02/12/20 12:59 Last Admin: 01/14/20 05:43 Dose: 125 mcg Documented by: Miscellaneous (Carbohydrates For Hypoglycemia) 15 - 30 gm PO UD PRN PRN Reason: Hypoglycemia Protocol Stop: 02/12/20 02:07 Miscellaneous Information (Consult) 1 ea N/A UD PRN PRN Reason: Consult Stop: 02/12/20 01:02 Miscellaneous Information (Consult Glycemic Management Pharmacy) 1 ea N/A UD PRN PRN Reason: Consult Stop: 02/12/20 10:45 Montelukast Sodium (Singulair) 10 mg NG QAM [facility] Stop: 02/12/20 12:59 Last Admin: 01/14/20 09:30 Dose: 10 mg Documented by: Ondansetron HCl (Zofran) 4 mg IV Q6H PRN PRN Reason: Nausea Stop: 02/12/20 02:07 Oseltamivir Phosphate (Tamiflu) 30 mg NG DAILY [facility]; Protocol Stop: 01/18/20 12:59 Last Admin: 01/14/20 09:31 Dose: 30 mg Documented by: Senna/Docusate Sodium (Senokot S) 1 tab PO BID [facility] Stop: 02/12/20 12:59 Last Admin: 01/14/20 21:03 Dose: 1 tab Documented by: PG Care Time/CCT Total # of Minutes Spent Total Time Spent with Patient: Total time spent is greater than 50% in coordination of care (as documented) at patient's floor/unit and/or counseling patient: Coding Level of Care Code 19142 Subseq Hosp Care Lvl 3 Diagnoses Acute and chronic respiratory failure with hypoxia J96.21 Pneumonia involving right lung J18.9 Pulmonary edema J81.0 Chronicity: acute Acute renal failure (ARF) N17.9 Acute renal failure type: unspecified Paroxysmal atrial fibrillation I48.0 Influenza A J10.1 Stage II pressure ulcer of buttock L89.302 DM type 2 (diabetes mellitus, type 2) E11.9; Z79.4 Diabetes mellitus complication status: without complication Diabetes mellitus terminal clerk insulin use: with terminal clerk use Chronic anticoagulation Z79.01 Hypoalbuminemia E88.09 Hypothyroid E03.9 Hypothyroidism type: unspecified Abnormal LFTs R94.5 Gram negative septicemia A41.50 (1) Acute renal failure (ARF) Acute renal failure type: unspecified Qualified Code(s): N17.9 - Acute kidney failure, unspecified (2) DM type 2 (diabetes mellitus, type 2) Diabetes mellitus complication status: without complication Diabetes mellitus detention insulin use: with terminal clerk use Qualified Code(s): E11.9 - Type 2 diabetes mellitus without complications; Z79.4 - superintendent terminal (current) use of insulin (3) Hypothyroid Hypothyroidism type: unspecified Qualified Code(s): E03.9 - Hypothyroidism, unspecified (4) Pulmonary edema Chronicity: acute Qualified Code(s): J81.0 - Acute pulmonary edema
[2020-01-14] MEDS: ATORVASTATIN 40 MG TAB NG SCH (21:02)
[2020-01-14] MEDS: FLUTICASONE PROPIONATE NA SPR 16 GM BTL SCH (21:02)
--- NOTE | 2020-01-14 23:01 | Progress Notes ---
DATE OF CONSULTATION: 01/14/2020 The patient was seen in followup today. She continues to be on ventilator support. She was supported with fentanyl for pain and sedation. No significant change in her condition. Examination of the right hip demonstrates slightly improved compared to yesterday with slightly diminished induration and diminished drainage around the right hip compared to yesterday. Local erythema. Minimal odor. Scant discharge is noted. Continues to be morbidly obese. No streaking or redness proximally and distal to the area of ulceration. Radiographs were reviewed. AP and lateral views demonstrate well fixed stable right hip arthroplasty components. No evidence of loosening, no fractures, no evidence of bone loss. IMPRESSION: 1. Right hip superficial ulceration. 2. Status post right total hip arthroplasty well fixed components. RECOMMENDATION: Continue supportive care, wound management and daily dressing changes. We will follow with you as necessary. The patient may follow up as an outpatient either with Dr. Conti or myself as necessary. Thank you for the opportunity to consult in care of this patient, Rekha Khanna. RYAN
[2020-01-15] MEDS: PIPERACILLIN/TAZOBACTAM 4.5 GM in DEXTROSE 5% 100 ML IV SCH ×3 (04:20→19:55)
[2020-01-15] MEDS: INSULIN ASPART 100 UNITS/ML 3 ML PEN SC SCH ×6 (04:27→20:17)
[2020-01-15 05:04] LABS: Basophils # (auto) 0.01 K/uL (0-0.2); Basophils % (auto) 0.1 %; Eosinophils # (auto) 0.07 K/uL (0-0.5); Eosinophils % (auto) 0.6 %; Hematocrit (blood only) 25.6 % (37-47); Hemoglobin 8.1 g/dL (12.0-16.0); Immature Granulocytes # (auto) 0.03 K/uL (0.00-0.02); Immature Granulocytes % (auto) 0.3 %; Lymphocytes # (auto) 0.72 K/uL (1.2-3.4); Lymphocytes % (auto) 6.4 %; Mean Corpuscular Hemoglobin 26.4 pg (25-34); Mean Corpuscular Hgb Conc 31.6 g/dL (32-36); Mean Corpuscular Volume 83.4 fL (80-100); Mean Platelet Volume 9.3 fL (7.4-10.4); Monocytes # (auto) 0.76 K/uL (0.11-0.59); Monocytes % (auto) 6.8 %; Neutrophils # (auto) 9.62 K/uL (1.4-6.5); Neutrophils % (auto) 85.8 %; Platelet Count 384 K/uL (130-400); RDW Coefficient of Variation 18.3 % (11.5-14.5); RDW Standard Deviation 55.4 fL (36.4-46.3); Red Blood Count 3.07 M/uL (4.2-5.4); White Blood Count 11.21 K/uL (4.8-10.8)
[2020-01-15 05:08] LABS: HCO3 ABG 27 mmol/L (19-24); Oxygen Saturation ABG 90.3 % (90-95); PCO2 ABG 44 mmHg (35-46); PO2 ABG 82 mmHg (80-95); pH ABG 7.41 (7.35-7.45)
[2020-01-15 05:09] LABS: Allen Test Pos (Pos)
[2020-01-15 05:15] LABS: Calcium 7.8 mg/dl (8.5-10.1); Est GFR (African American) 21.9; Est GFR (Non-African American) 18.9; Magnesium 2.3 mg/dl (1.8-2.4); Potassium 3.9 mmol/L (3.5-5.1)
[2020-01-15 05:20] LABS: INR 4.6 (0.9-1.1)
[2020-01-15 05:37] LABS: Phosphorus 3.7 mg/dl (2.5-4.9)
[2020-01-15] MEDS: LEVOTHYROXINE SODIUM 125 MCG TABLET PO SCH (06:14)
[2020-01-15] MEDS: CLOTRIMAZOLE 1% CR 15 GM TUBE TOP SCH ×3 (06:14→22:03)
[2020-01-15] MEDS: BUDESONIDE 0.5 MG/2 ML VIAL (PULMICORT) NEB SCH ×2 (07:29→19:40)
--- NOTE | 2020-01-15 07:32 | Hospitalist Progress Note ---
Date of Service January 15, 2020 Assessment & Plan (1) Acute and chronic respiratory failure with hypoxia: Secondary to right middle and lower lobe presumptively aspiration pneumonia, and secondarily pulmonary edema intubated on 01/12 because she was failing on BiPAP, became obtunded, hypercarbic remain intubated today, still on Levophed consider SBT tomorrow if off pressor support and more alert off sedation management per Dr. Looney (2) Pneumonia involving right lung: Concern regarding possibility of aspiration pneumonia. continue Doxycycline and Zosyn IV per pulmonary WBC is 11k, oxygenating better today on ventilator (3) Pulmonary edema: Mild pulmonary edema secondary to third spacing due to hypoalbuminemia, this was on admission HD on 01/13 with UF, pulmonary edema resolved (4) Acute renal failure (ARF): Creatinine upon admission 4.64, with baseline 1.16-1.84. Cr trended upward HD catheter placed on 01/12 and patient had HD on 01/12 in the afternoon nephrology following Cr down to 2.57 today without HD yesterday electrolytes stable making urine via sanches as long as she is on Levophed and pressures are adequate (5) Paroxysmal atrial fibrillation: holding warfarin INR is up to 4.6 rates are stable, actually with bradycardia, holding metoprolol and amiodarone (6) Influenza A: Continue Tamiflu for 5 day course (7) Stage II pressure ulcer of buttock: Consult wound care for 3 documented lesions by wound care outpatient (8) DM type 2 (diabetes mellitus, type 2): insulin drip started on 01/12 for hyperglycemia and critically ill management per pharmacy avoid hypoglycemia (9) Chronic anticoagulation: On warfarin as noted above (10) Hypoalbuminemia: no further albumin (11) Hypothyroid: takes levothyroxine 125 mcg p.o. daily (12) Abnormal LFTs: May be secondary to influenza versus passive hepatic congestion. trended down (13) Wound, open, hip or thigh: wound culture with staph aureus and Bacteroides orthopedics was consulted, non-operative this is ongoing issue, she has seen ID in the past, failed oysterman IV antibiotics overall, patient with complex medical issues, poor prognosis will likely benefit from palliative consultation once she is extubated, discuss goals of care Admission and Anticipated Discharge Date Admission Date: January 13, 2020 Subjective patient sedated still requiring small amount of Levophed, BP drops to 70's systolic and UO decreases off of Levophed labs show WBC 11k, Hb 8.1, INR 4.6 Cr coming down to 2.57, electrolytes stable d/w Dr. Pineda, will follow renal function, no plans for HD tomorrow at this time d/w Dr. Looney, continue ventilator since she is requiring pressor support Review of Systems Review of Systems: Unobtainable due to endotracheal tube Physical Exam Constitutional: well developed, well nourished and + morbidly obese; no acute distress ENMT: external ear and nose normal, oropharynx normal (ET tube) Neck: trachea midline, no thyromegaly Respiratory: Auscultation: + diminished lung sounds and + crackles; no rhonchi and no wheezes Cardiovascular: Rate/Rhythm: regular rhythm and + bradycardic Heart Sounds: normal S1 and normal S2; no murmur Extremities: normal capillary refill and + edema Gastrointestinal (Abdomen): normal bowel sounds, soft, nontender, no hepatosplenomegaly Musculoskeletal: Head/Neck/Chest: normocephalic and head atraumatic Extremities: no muscle atrophy, no cyanosis and no clubbing Skin: no rashes, warm and dry Neurologic: no focal motor deficits and + not awake (sedated) Psychiatric: Orientation: + not alert and + not oriented x 3 Results & Data ([facility]) Vital Signs (Past 12 Hours) Vital Signs Temp Pulse Resp BP Pulse Ox 01/15/20 07:19 56 L 01/15/20 06:00 55 L 20 142/69 H 98 01/15/20 05:35 52 L 20 95 01/15/20 05:00 52 L 20 86/43 L 95 01/15/20 04:00 36.6 C 53 L 20 130/50 L 95 01/15/20 03:00 36.6 C 55 L 20 110/53 L 01/15/20 01:59 50 L 20 93 01/15/20 01:00 36.9 C 55 L 17 135/55 L 98 01/15/20 00:00 50 L 104/50 L 01/14/20 23:10 50 L 20 95 01/14/20 23:00 36.8 C 50 L 20 106/54 L 95 01/14/20 21:00 37 C 54 L 20 96/64 L 94 01/14/20 20:00 96/64 L 01/14/20 19:34 57 L 20 94 01/14/20 19:00 58 L 21 153/78 H 97 01/14/20 18:41 64 125/46 L 95 01/14/20 18:36 59 L 75/57 L 96 Laboratory Results Laboratory Results - last 24 hr 01/14/20 01/14/20 01/14/20 11:46 17:47 21:11 WBC RBC Hgb Hct MCV MCH MCHC RDW Std Deviation RDW Coeff of Mehnaz Plt Count MPV Immature Gran % (Auto) Neut % (Auto) Lymph % (Auto) Ada % (Auto) Eos % (Auto) Baso % (Auto) Immature Gran # (Auto) Neut # (Auto) Lymph # (Auto) Ada # (Auto) Eos # (Auto) Baso # (Auto) PT INR ABG pH ABG pCO2 ABG pO2 ABG HCO3 ABG O2 Saturation ABG Base Excess Darrel Test Barometric Pressure Oxygen Given Sodium Potassium Chloride Carbon Dioxide Anion Gap BUN Creatinine Est Cr Clr Drug Dosing Est GFR ( Amer) Est GFR (Non-Af Amer) BUN/Creatinine Ratio Glucose POC Glucose (other) 174 H 167 H 183 H Calcium Phosphorus Magnesium Total Creatine Kinase Procalcitonin 01/14/20 01/15/20 01/15/20 23:58 04:25 04:45 WBC RBC Hgb Hct MCV MCH MCHC RDW Std Deviation RDW Coeff of Mehnaz Plt Count MPV Immature Gran % (Auto) Neut % (Auto) Lymph % (Auto) Ada % (Auto) Eos % (Auto) Baso % (Auto) Immature Gran # (Auto) Neut # (Auto) Lymph # (Auto) Ada # (Auto) Eos # (Auto) Baso # (Auto) PT INR ABG pH ABG pCO2 ABG pO2 ABG HCO3 ABG O2 Saturation ABG Base Excess Darrel Test Barometric Pressure Oxygen Given Sodium 132 L Potassium 3.9 Chloride 97 L Carbon Dioxide 26 Anion Gap 9.0 BUN 38 H Creatinine 2.57 H Est Cr Clr Drug Dosing 31.0 Est GFR ( Amer) 21.9 Est GFR (Non-Af Amer) 18.9 BUN/Creatinine Ratio 15.0 Glucose 163 H POC Glucose (other) 175 H 161 H Calcium 7.8 L Phosphorus 3.7 Magnesium 2.3 Total Creatine Kinase 254 H Procalcitonin 01/15/20 01/15/20 01/15/20 04:45 04:45 04:45 WBC 11.21 H RBC 3.07 L Hgb 8.1 L Hct 25.6 L MCV 83.4 MCH 26.4 MCHC 31.6 L RDW Std Deviation 55.4 H RDW Coeff of Mehnaz 18.3 H Plt Count 384 MPV 9.3 Immature Gran % (Auto) 0.3 Neut % (Auto) 85.8 Lymph % (Auto) 6.4 Ada % (Auto) 6.8 Eos % (Auto) 0.6 Baso % (Auto) 0.1 Immature Gran # (Auto) 0.03 H Neut # (Auto) 9.62 H Lymph # (Auto) 0.72 L Ada # (Auto) 0.76 H Eos # (Auto) 0.07 Baso # (Auto) 0.01 PT 45.0 H INR 4.6 H ABG pH ABG pCO2 ABG pO2 ABG HCO3 ABG O2 Saturation ABG Base Excess Darrel Test Barometric Pressure Oxygen Given Sodium Potassium Chloride Carbon Dioxide Anion Gap BUN Creatinine Est Cr Clr Drug Dosing Est GFR ( Amer) Est GFR (Non-Af Amer) BUN/Creatinine Ratio Glucose POC Glucose (other) Calcium Phosphorus Magnesium Total Creatine Kinase Procalcitonin 7.64 H 01/15/20 04:45 WBC RBC Hgb Hct MCV MCH MCHC RDW Std Deviation RDW Coeff of Mehnaz Plt Count MPV Immature Gran % (Auto) Neut % (Auto) Lymph % (Auto) Ada % (Auto) Eos % (Auto) Baso % (Auto) Immature Gran # (Auto) Neut # (Auto) Lymph # (Auto) Ada # (Auto) Eos # (Auto) Baso # (Auto) PT INR ABG pH 7.41 ABG pCO2 44 ABG pO2 82 ABG HCO3 27 H ABG O2 Saturation 90.3 ABG Base Excess 2.0 H Darrel Test Pos Barometric Pressure 742.7 Oxygen Given 9L Sodium Potassium Chloride Carbon Dioxide Anion Gap BUN Creatinine Est Cr Clr Drug Dosing Est GFR ( Amer) Est GFR (Non-Af Amer) BUN/Creatinine Ratio Glucose POC Glucose (other) Calcium Phosphorus Magnesium Total Creatine Kinase Procalcitonin Medications Administered Current Inpatient Medications Acetaminophen (Tylenol) 650 mg PO Q6H PRN PRN Reason: Fever Stop: 02/12/20 02:07 Aspirin (Aspirin Chew) 81 mg NG DAILY [facility] Stop: 02/12/20 12:59 Last Admin: 01/14/20 09:28 Dose: 81 mg Documented by: Atorvastatin Calcium (Lipitor) 40 mg NG HS [facility] Stop: 02/12/20 20:59 Last Admin: 01/14/20 21:02 Dose: 40 mg Documented by: Bisacodyl (Dulcolax) 10 mg OR DAILY PRN PRN Reason: Constipation Stop: 02/12/20 02:07 Budesonide (Pulmicort Respules) 0.5 mg NEB BIDR [facility] Stop: 02/12/20 06:59 Last Admin: 01/15/20 07:29 Dose: 0.5 mg Documented by: Clotrimazole (Lotrimin 1%) 1 appln TOP Q8H [facility] Stop: 02/12/20 05:59 Last Admin: 01/15/20 06:14 Dose: 1 appln Documented by: Dextrose (Dextrose 50%) 25 - 50 ml IV UD PRN; Protocol PRN Reason: Hypoglycemia Protocol Stop: 02/12/20 02:07 Enteral Nutritional Formula (Impact 1.0 Andrzej) 1,000 ml OG UD [facility]; Protocol Stop: 02/13/20 10:14 Last Admin: 01/14/20 12:55 Dose: 1,000 ml Documented by: Ferrous Sulfate (Feosol) 325 mg PO DAILY [facility] Stop: 02/12/20 08:59 Last Admin: 01/13/20 10:28 Dose: Not Given Documented by: Fluticasone Propionate (Flonase) 2 sprays NA HS [facility] Stop: 02/12/20 20:59 Last Admin: 01/14/20 21:02 Dose: 2 sprays Documented by: Gabapentin (Neurontin) 600 mg PO TID [facility] Stop: 02/12/20 08:59 Last Admin: 01/13/20 10:28 Dose: Not Given Documented by: Glucagon (Glucagen) 1 mg SQ UD PRN; Protocol PRN Reason: Hypoglycemia Protocol Stop: 02/12/20 02:07 Glucose (Dex4 Glucose) 4 - 8 tabs PO UD PRN; Protocol PRN Reason: Hypoglycemia Protocol Stop: 02/12/20 02:07 Glucose (Glucose 40%) 15 - 30 gm PO UD PRN; Protocol PRN Reason: Hypoglycemia Protocol Stop: 02/12/20 02:07 Heparin Sodium (Porcine) (Heparin Sod 100 Unit/Ml Flush) 5 ml FLUSH PRN PRN PRN Reason: Flush Stop: 02/13/20 00:44 Doxycycline Hyclate 100 mg/ (Dextrose) 110 mls @ 50 mls/hr IV BID [facility] Stop: 01/20/20 08:59 Last Infusion: 01/14/20 23:15 Dose: Infused Documented by: Norepinephrine Bitartrate 8 mg (/ Dextrose) 508 mls @ 18.071 mls/hr IV .Q24H [facility]; Protocol Stop: 02/12/20 05:14 Last Titration: 01/15/20 06:46 Dose: Infused Documented by: Fentanyl Citrate (Fentanyl Drip) 1,250 mcg in 250 mls @ 25 mls/hr IV .Q10H [facility]; Protocol Stop: 01/27/20 10:44 Last Titration: 01/15/20 06:55 Dose: 125 mcg/hr, 25 mls/hr Documented by: Famotidine 20 mg/ Syringe 5 mls @ 2.5 mls/min IV Q24H [facility] Stop: 02/12/20 10:59 Last Admin: 01/14/20 11:50 Dose: 2.5 mls/min Documented by: Piperacillin Sod/Tazobactam (Sod 4.5 gm/ Dextrose) 120 mls @ 30 mls/hr IV Q8H [facility]; Protocol Stop: 01/20/20 11:59 Last Infusion: 01/15/20 06:55 Dose: 30 mls/hr Documented by: Insulin Aspart (Novolog Flexpen) 0 units SC Q4 [facility] Stop: 02/13/20 19:59 Last Admin: 01/15/20 04:27 Dose: 3 units Documented by: Insulin Glargine (Lantus Solostar Pen) 15 units SC DAILY [facility] Stop: 02/13/20 08:59 Last Admin: 01/14/20 09:29 Dose: 15 units Documented by: Lactobacillus Acidophilus (Floranex) 1 tab PO DAILY [facility] Stop: 02/12/20 12:59 Last Admin: 01/14/20 09:27 Dose: 1 tab Documented by: Levothyroxine Sodium (Synthroid) 125 mcg PO DAILYBB [facility] Stop: 02/12/20 12:59 Last Admin: 01/15/20 06:14 Dose: 125 mcg Documented by: Miscellaneous (Carbohydrates For Hypoglycemia) 15 - 30 gm PO UD PRN PRN Reason: Hypoglycemia Protocol Stop: 02/12/20 02:07 Miscellaneous Information (Consult) 1 ea N/A UD PRN PRN Reason: Consult Stop: 02/12/20 01:02 Miscellaneous Information (Consult Glycemic Management Pharmacy) 1 ea N/A UD PRN PRN Reason: Consult Stop: 02/12/20 10:45 Montelukast Sodium (Singulair) 10 mg NG QAM [facility] Stop: 02/12/20 12:59 Last Admin: 01/14/20 09:30 Dose: 10 mg Documented by: Ondansetron HCl (Zofran) 4 mg IV Q6H PRN PRN Reason: Nausea Stop: 02/12/20 02:07 Oseltamivir Phosphate (Tamiflu) 30 mg NG DAILY [facility]; Protocol Stop: 01/18/20 12:59 Last Admin: 01/14/20 09:31 Dose: 30 mg Documented by: Senna/Docusate Sodium (Senokot S) 1 tab PO BID [facility] Stop: 02/12/20 12:59 Last Admin: 01/14/20 21:03 Dose: 1 tab Documented by: PG Care Time/CCT Total # of Minutes Spent Total Time Spent with Patient: Total time spent is greater than 50% in coordination of care (as documented) at patient's floor/unit and/or counseling patient: Coding Level of Care Code 11973 Subseq Hosp Care Lvl 3 Diagnoses Acute and chronic respiratory failure with hypoxia J96.21 Pneumonia involving right lung J18.9 Pulmonary edema J81.0 Chronicity: acute Acute renal failure (ARF) N17.9 Acute renal failure type: unspecified Paroxysmal atrial fibrillation I48.0 Influenza A J10.1 Stage II pressure ulcer of buttock L89.302 DM type 2 (diabetes mellitus, type 2) E11.9; Z79.4 Diabetes mellitus complication status: without complication Diabetes mellitus oysterman insulin use: with oysterman use Chronic anticoagulation Z79.01 Hypoalbuminemia E88.09 Hypothyroid E03.9 Hypothyroidism type: unspecified Abnormal LFTs R94.5 Wound, open, hip or thigh (1) Acute renal failure (ARF) Acute renal failure type: unspecified Qualified Code(s): N17.9 - Acute kidney failure, unspecified (2) DM type 2 (diabetes mellitus, type 2) Diabetes mellitus complication status: without complication Diabetes mellitus fci insulin use: with oysterman use Qualified Code(s): E11.9 - Type 2 diabetes mellitus without complications; 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
--- NOTE | 2020-01-15 07:53 | XRay Report ---
XR chest 1V portable HISTORY: Shortness of breath. COMPARISON: Chest 01/14/2020. FINDINGS: The lines and tubes remain unchanged in position with the endotracheal tube terminates 3 cm from the rodger. Nasogastric tube terminates below the diaphragm. There is a right jugular central v enous catheter and a right subclavian Port-A-Cath. The heart remains enlarged. There is right greater than left perihilar interstitial and vascular thickening with a right infrahilar airspace opacity. N o pneumothorax. Patchy left basilar densities are again noted. IMPRESSION: 1. Satisfactory support line placement. 2. Mild congestive change is again noted. 3. Bibasilar airspace opacities persist and may represent a pneumonia. ACT 112: Negative or not required by law. Electronically signed by: Freddy Aden M.D. 01/15/2020 7:52 AM
[2020-01-15] MEDS: NOREPINEPHRINE BIT INJ 8 MG in DEXTROSE 5% 500 ML IV SCH (08:04)
[2020-01-15] MEDS: ASPIRIN 81 MG CHEW NG SCH (08:14)
[2020-01-15] MEDS: MONTELUKAST SODIUM 10 MG TABLET NG SCH (08:14)
[2020-01-15] MEDS: DOCUSATE SODIUM/SENNA 50/8.6MG TAB PO SCH ×2 (08:14→19:56)
[2020-01-15] MEDS: LACTOBACILLUS ACIDOPHILUS (FLORANEX) TAB PO SCH (08:14)
[2020-01-15] MEDS: OSELTAMIVIR PHOSPHATE SUSP 30 MG/5 ML UDP NG SCH (08:15)
--- NOTE | 2020-01-15 09:05 | Critical Care Progress Note ---
Date of Service January 15, 2020 Assessment & Plan (1) Sepsis: Admitted to intensive care unit: Reason Critically Ill: 64-year-old female presenting with influenza and subsequent development of RIGHT-sided pneumonia with sepsis requiring vasopressors as well as BiPAP for oxygenation. Had worsening respiratory failure and bradycardia requiring intubation on 01/13/20. Due to oliguria and worsening DIANNE, a dialysis catheter was also placed and patient underwent dialysis removing 2L of fluid. 24-hour events: Patient remains on vasopressor agents although they have been able to be weaned her vent settings are minimal. She remains intermittently agitated with any manipulation. Cultures from the wound are growing staph Plan: NEURO - CAM ICU: Negative Sedation: Continue sedation per protocol. She appears neurologically intact when sedation is lightened and is able to follow commands and nod head yes or no to questions. CARDIAC/VASCULAR - Hypotension: Probably multifactorial due to septic shock as well as accumulation of medications in the setting of renal failure. PRN atropine. Holding amiodarone and beta-blockers. Wean Levophed as tolerated. Holding all anticoagulation. Continue to trend daily INR. 4.5 today. No evidence of bleeding. No indication for acute reversal. RESPIRATORY - Continue current vent settings. Blood gas acceptable. Influenza. Day 4 of 5 Tamiflu. Hold on extubation pending improvement in the patient's hemodynamics. GI/NUTRITION - Continue trophic tube feeds. Per nutrition RENAL/LYTES - Discussed with Dr. Petit. She has had increasing urine output with stable serum creatinine overnight. Trial of diuretics as tolerated with attention to blood pressure. May require colloid support - No current issues ENDO - Diabetes BSGs per unit protocol. ISS --> gtt per unit policy. Hypothyroidism: Continue home Levothyroxine 125mcg qd HEME - Baseline anemia: Suspect some component of anemia of chronic disease. Patient had been on iron in the outpatient setting which is being held currently. No indication of acute bleeding and no indication for transfusion currently. ID - Influenza. Complete course of Tamiflu. Cultures of the hip wound are demonstr ating staph. In the past they have grown Proteus, E. coli, and Klebsiella. Continue Zosyn, linezolid, and doxycycline pending finalization of cultures. LINES/IV ACCESS - PIVs x1 RIGHT-sided port R dialysis cath L arm A line Heard OG ETT DVT PROPHYLAXIS - DC Coumadin, transition to Hep or Lovenox when INR <1.5 SCDs Code: Full Patient's overall course is quite complicated. Her quality of life prior to this admission appeared poor. Many of her issues are fundamentally unfixable. I think a palliative care approach would certainly be reasonable and they will be engaged tomorrow. (2) Influenza A: (3) Pneumonia: (4) Acute kidney injury: Subjective Patient is intubated and sedated. Review of Systems Review of Systems: Unobtainable due to endotracheal tube Physical Exam Constitutional: + morbidly obese and cooperative; no acute distress Eyes: PERRL, conjunctivae normal, anicteric sclerae ENMT: Ears: no hearing impairment ETT secured in place. Neck: + thick neck; no neck crepitus and neck nontender Respiratory: no labored breathing Auscultation: + wheezes (diffuse wheezes throughout ) Cardiovascular: Rate/Rhythm: regular rate (68bpm) Heart Sounds: no murmur Vessels: no carotid bruit Extremities: no edema (though difficult to assess due to patient's body habitus ) Chest (Breasts): Chest: + vascular access device or port (on R ) Gastrointestinal (Abdomen): normal bowel sounds, soft, nontender, no hepatosplenomegaly Skin: + wound (Draining on R lateral thigh, chronic) Neurologic: awake Cranial Nerves: PERRL and normal accommodation Able to follow commands Genitourinary: Heard catheter in place Results & Data ([facility]) Vital Signs (Past 12 Hours) Vital Signs Temp Pulse Resp BP Pulse Ox 01/15/20 07:30 59 L 20 94 01/15/20 07:19 56 L 01/15/20 07:00 58 L 96 01/15/20 06:40 55 L 98 01/15/20 06:00 55 L 20 142/69 H 98 01/15/20 05:35 52 L 20 95 01/15/20 05:00 52 L 20 86/43 L 95 01/15/20 04:00 36.6 C 53 L 20 130/50 L 95 01/15/20 03:00 36.6 C 55 L 20 110/53 L 01/15/20 01:59 50 L 20 93 01/15/20 01:00 36.9 C 55 L 17 135/55 L 98 01/15/20 00:00 50 L 104/50 L 01/14/20 23:10 50 L 20 95 01/14/20 23:00 36.8 C 50 L 20 106/54 L 95 01/14/20 21:00 37 C 54 L 20 96/64 L 94 Laboratory Results 01/15/20 04:45 01/15/20 04:45 01/12/20 01/14/20 01/15/20 22:54 04:39 04:45 ABG pH 7.35 7.34 L 7.41 ABG pCO2 44 49 H 44 ABG pO2 84 62 L 82 ABG HCO3 24 26 H 27 H ABG O2 Saturation 95.4 H 89.3 L 90.3 ABG Base Excess -1.9 0.1 2.0 H Diagnostic Findings Chest x-ray from today independently reviewed. Tubes and lines are in good position. There continues to be an asymmetric infiltrate most prominent on the right versus the left. Cardiomegaly again noted. Overall film appears relatively stable. Coding Level of Care Code 54689 Subseq Hosp Care Lvl 3 Diagnoses Sepsis A41.9 Sepsis acute organ dysfunction status: unspecified Sepsis type: sepsis due to unspecified organism Influenza A J10.1 Pneumonia J18.9 Laterality: right Lung location: lower lobe of lung Pneumonia type: due to unspecified organism Acute kidney injury N17.9 (1) Sepsis Sepsis acute organ dysfunction status: unspecified Sepsis type: sepsis due to unspecified organism Qualified Code(s): A41.9 - Sepsis, unspecified organism (2) Pneumonia Laterality: right Lung location: lower lobe of lung Pneumonia type: due to unspecified organism Qualified Code(s): J18.9 - Pneumonia, unspecified organism
[2020-01-15] MEDS: INSULIN GLARGINE SOLOSTAR 100 UNITS/ML 3 ML PEN SC SCH (09:10)
[2020-01-15] MEDS: FAMOTIDINE 20 MG in SYRINGE 3 ML IV SCH (09:15)
[2020-01-15] MEDS: DOXYCYCLINE HYCLATE 100 MG in DEXTROSE 5% 100 ML IV SCH ×2 (09:15→19:54)
--- NOTE | 2020-01-15 09:36 | Pharmacy Report ---
Pharmacy Glycemic Short Note 2 - Date of Service January 15, 2020 - Glycemic Short BSG Results (Last 24 hours): 01/14/20 01/14/20 01/14/20 11:46 17:47 21:11 Glucose POC Glucose (other) 174 H 167 H 183 H 01/14/20 01/15/20 01/15/20 23:58 04:25 04:45 Glucose 163 H POC Glucose (other) 175 H 161 H 01/15/20 08:09 Glucose POC Glucose (other) 142 H OUTPATIENT ANTIDIABETIC REGIMEN: * Metformin 500mg PO BID * Sitagliptin 50mg daily * Humalog per sliding scale * A1c = 7.4% ASSESSMENT/Plan: * Tube feeds started yesterday afternoon, 15cc/hr. trickle feeds have minimally effected BSGs at this point. No need to cover carbs. Just correct hyperglycemia at this point. Dw nursing, if trickle feeds are to be escalated we can start to cover carbs. Contine lantus 15u QAM. PLAN FOR DISCHARGE: * to be determined.
--- NOTE | 2020-01-15 10:12 | Nephrology Progress Note ---
Date of Service January 15, 2020 Assessment & Plan (1) Acute kidney injury: 64-year-old female with morbid obesity, DMII, atrial fibrillation, Qtc >500, OA/DJD, suffered a right hip fracture following a fall in 2017 and continues to struggle with chronic right hip wound, admitted to [facility] on 01/12 with sepsis due to influenza pneumonia and suspected infection of R hip wound. This is Rekha's 4th hospitalization since October 2019. She suffered DIANNE requiring emergent hemodialysis for severe hyperkalemia and oliguria in October. Thankfully kidney function had recovered following this event to a creatinine of ~1.0 mg/dL. Current hospital course complicated by hemodynamic instability and severe DIANNE. Rekha was intubated with mental status changes and hemodynamic instability. She remains in the ICU mechanically ventilated on vasopressor support. Treatment includes Tamiflu, Zosyn, and doxycycline. Hip wound currently growing staph aureus (prior cultures klebsiella + proteus). Urine growing klebsiella. DIANNE is clinically consistent with ATN in the setting of pneumonia/infected hip wound/sepsis with associated hemodynamic instability (hypotension, bradycardia). Urine microscopy acellular; +hyaline casts. Emergent HD treatment performed January 12 via a non-tunneled RIJ dialysis catheter in the setting of volume overload and oliguria. Net UF of 2 liters achieved. Urine output acceptable this morning (~100 ml/hr) without diuretics. Electrolytes are within normal limits. She has chronic stable anemia with a hemoglobin of 8. She remains on levophed for BP support. TTE demonstrated normal LV/RV size and function without significant valvular heart disease. There is no need for additional HD at this time. Will re-evaluate tomorrow. In the interim, I would encourage an even to slightly negative fluid balance. Diuretics may be provided as needed if she remains in a positive fluid balance. No renal imaging performed this admission. Heard remains intact. Urine output improving. Furosemide 40 mg BID at home has been held. Lisinopril held due to DIANNE. Sitagliptin and metformin held in setting of DIANNE. Metoprolol and amiodarone held due to bradycardia and hypotension. Medications are appropriate for kidney function. Plan of care was discussed with the semiconductor package symbol stamper this morning. Document strict I/O's. Repeat metabolic profile tomorrow AM. (2) Pneumonia involving right lung: (3) Influenza A: Subjective No acute events overnight. Remains on ventilator. No plan to extubate at this time. No fevers or chills. Unable to completely wean levophed due to persistent hypotension. Sinus bradycardia persists. Awake and comfortable on vent this morning. Review of Systems Review of Systems: Unobtainable due to endotracheal tube Physical Exam Constitutional: well developed, + obese and + mechanically ventilated; no acute distress Eyes: no scleral abnormality and no corneal abnormality Neck: normal visual inspection, trachea midline and + thick neck RIJ dialysis catheter Respiratory: symmetric chest movement Auscultation: lungs clear to au scultation bilaterally Cardiovascular: Rate/Rhythm: regular rate Heart Sounds: normal S1 and normal S2 Extremities: no edema Musculoskeletal: Extremities: no cyanosis and no clubbing Skin: normal turgor; no lesions Neurologic: Motor/Sensory: no tremor and no asterixis Psychiatric: Orientation: alert and oriented x 3 Results & Data Vital Signs (Past 12 Hours) Vital Signs Temp Pulse Resp BP Pulse Ox 01/15/20 09:36 55 L 127/57 L 95 01/15/20 09:30 55 L 96 01/15/20 09:03 48 L 98/48 L 97 01/15/20 09:00 48 L 98 01/15/20 08:35 52 L 78/38 L 99 01/15/20 08:30 53 L 97 01/15/20 08:00 57 L 99 01/15/20 07:55 36.8 C 59 L 87/43 L 97 01/15/20 07:30 58 L 20 94 01/15/20 07:19 56 L 01/15/20 07:00 58 L 96 01/15/20 06:40 55 L 98 01/15/20 06:00 55 L 20 142/69 H 98 01/15/20 05:35 52 L 20 95 01/15/20 05:00 52 L 20 86/43 L 95 01/15/20 04:00 36.6 C 53 L 20 130/50 L 95 01/15/20 03:00 36.6 C 55 L 20 110/53 L 01/15/20 01:59 50 L 20 93 01/15/20 01:00 36.9 C 55 L 17 135/55 L 98 01/15/20 00:00 50 L 104/50 L 01/14/20 23:10 50 L 20 95 01/14/20 23:00 36.8 C 50 L 20 106/54 L 95 Laboratory Results Laboratory Results - last 24 hr 01/14/20 01/14/20 01/14/20 11:46 17:47 21:11 WBC RBC Hgb Hct MCV MCH MCHC RDW Std Deviation RDW Coeff of Mehnaz Plt Count MPV Immature Gran % (Auto) Neut % (Auto) Lymph % (Auto) Williamson % (Auto) Eos % (Auto) Baso % (Auto) Immature Gran # (Auto) Neut # (Auto) Lymph # (Auto) Williamson # (Auto) Eos # (Auto) Baso # (Auto) PT INR ABG pH ABG pCO2 ABG pO2 ABG HCO3 ABG O2 Saturation ABG Base Excess Darrel Test Barometric Pressure Oxygen Given Sodium Potassium Chloride Carbon Dioxide Anion Gap BUN Creatinine Est Cr Clr Drug Dosing Est GFR ( Amer) Est GFR (Non-Af Amer) BUN/Creatinine Ratio Glucose POC Glucose (other) 174 H 167 H 183 H Calcium Phosphorus Magnesium Total Creatine Kinase Procalcitonin 01/14/20 01/15/20 01/15/20 23:58 04:25 04:45 WBC RBC Hgb Hct MCV MCH MCHC RDW Std Deviation RDW Coeff of Mehnaz Plt Count MPV Immature Gran % (Auto) Neut % (Auto) Lymph % (Auto) Williamson % (Auto) Eos % (Auto) Baso % (Auto) Immature Gran # (Auto) Neut # (Auto) Lymph # (Auto) Williamson # (Auto) Eos # (Auto) Baso # (Auto) PT INR ABG pH ABG pCO2 ABG pO2 ABG HCO3 ABG O2 Saturation ABG Base Excess Darrel Test Barometric Pressure Oxygen Given Sodium 132 L Potassium 3.9 Chloride 97 L Carbon Dioxide 26 Anion Gap 9.0 BUN 38 H Creatinine 2.57 H Est Cr Clr Drug Dosing 31.0 Est GFR ( Amer) 21.9 Est GFR (Non-Af Amer) 18.9 BUN/Creatinine Ratio 15.0 Glucose 163 H POC Glucose (other) 175 H 161 H Calcium 7.8 L Phosphorus 3.7 Magnesium 2.3 Total Creatine Kinase 254 H Procalcitonin 01/15/20 01/15/20 01/15/20 04:45 04:45 04:45 WBC 11.21 H RBC 3.07 L Hgb 8.1 L Hct 25.6 L MCV 83.4 MCH 26.4 MCHC 31.6 L RDW Std Deviation 55.4 H RDW Coeff of Mehnaz 18.3 H Plt Count 384 MPV 9.3 Immature Gran % (Auto) 0.3 Neut % (Auto) 85.8 Lymph % (Auto) 6.4 Williamson % (Auto) 6.8 Eos % (Auto) 0.6 Baso % (Auto) 0.1 Immature Gran # (Auto) 0.03 H Neut # (Auto) 9.62 H Lymph # (Auto) 0.72 L Williamson # (Auto) 0.76 H Eos # (Auto) 0.07 Baso # (Auto) 0.01 PT 45.0 H INR 4.6 H ABG pH ABG pCO2 ABG pO2 ABG HCO3 ABG O2 Saturation ABG Base Excess Darrel Test Barometric Pressure Oxygen Given Sodium Potassium Chloride Carbon Dioxide Anion Gap BUN Creatinine Est Cr Clr Drug Dosing Est GFR ( Amer) Est GFR (Non-Af Amer) BUN/Creatinine Ratio Glucose POC Glucose (other) Calcium Phosphorus Magnesium Total Creatine Kinase Procalcitonin 7.64 H 01/15/20 01/15/20 04:45 08:09 WBC RBC Hgb Hct MCV MCH MCHC RDW Std Deviation RDW Coeff of Mehnaz Plt Count MPV Immature Gran % (Auto) Neut % (Auto) Lymph % (Auto) Williamson % (Auto) Eos % (Auto) Baso % (Auto) Immature Gran # (Auto) Neut # (Auto) Lymph # (Auto) Williamson # (Auto) Eos # (Auto) Baso # (Auto) PT INR ABG pH 7.41 ABG pCO2 44 ABG pO2 82 ABG HCO3 27 H ABG O2 Saturation 90.3 ABG Base Excess 2.0 H Darrel Test Pos Barometric Pressure 742.7 Oxygen Given 9L Sodium Potassium Chloride Carbon Dioxide Anion Gap BUN Creatinine Est Cr Clr Drug Dosing Est GFR ( Amer) Est GFR (Non-Af Amer) BUN/Creatinine Ratio Glucose POC Glucose (other) 142 H Calcium Phosphorus Magnesium Total Creatine Kinase Procalcitonin PG Care Time/CCT Total # of Minutes Spent Total Time Spent with Patient: Total time spent is greater than 50% in coordination of care (as documented) at patient's floor/unit and/or counseling patient: Coding Level of Care Code 65876 Subseq Hosp Care Lvl 3 Diagnoses Acute kidney injury N17.9 Pneumonia involving right lung J18.9 Influenza A J10.1
--- NOTE | 2020-01-15 10:39 | Orthopedic Progress Note ---
Date of Service January 15, 2020 Assessment & Plan (1) Wound, open, hip or thigh: Continue non op treatment at this time and IV abx. Will reassess if needed. Please consult Admission and Anticipated Discharge Date Admission Date: January 13, 2020 Subjective resting comfortably in bed on vent. Physical Exam Physical Exam: right hip no change, slight drainage Results & Data ([facility]) Vital Signs (Past 12 Hours) Vital Signs Temp Pulse Resp BP Pulse Ox 01/15/20 09:36 55 L 127/57 L 95 01/15/20 09:30 55 L 96 01/15/20 09:03 48 L 98/48 L 97 01/15/20 09:00 48 L 98 01/15/20 08:35 52 L 78/38 L 99 01/15/20 08:30 53 L 97 01/15/20 08:00 57 L 99 01/15/20 07:55 36.8 C 59 L 87/43 L 97 01/15/20 07:30 58 L 20 94 01/15/20 07:19 56 L 01/15/20 07:00 58 L 96 01/15/20 06:40 55 L 98 01/15/20 06:00 55 L 20 142/69 H 98 01/15/20 05:35 52 L 20 95 01/15/20 05:00 52 L 20 86/43 L 95 01/15/20 04:00 36.6 C 53 L 20 130/50 L 95 01/15/20 03:00 36.6 C 55 L 20 110/53 L 01/15/20 01:59 50 L 20 93 01/15/20 01:00 36.9 C 55 L 17 135/55 L 98 01/15/20 00:00 50 L 104/50 L 01/14/20 23:10 50 L 20 95 01/14/20 23:00 36.8 C 50 L 20 106/54 L 95
[2020-01-15] MEDS: fentaNYL DRIP 1,250 MCG/250 ML BAG IV SCH ×2 (11:32→19:59)
[2020-01-15] MEDS ORDERED: DAPTOmycin 550 MG in SYRINGE 0 ML IV SCH (12:00)
[2020-01-15] MEDS: IMPACT LIQD 1.0 CAL 1,000 ML BAG OG SCH (15:39)
[2020-01-15] MEDS: FLUTICASONE PROPIONATE NA SPR 16 GM BTL SCH (19:55)
[2020-01-16] MEDS: INSULIN ASPART 100 UNITS/ML 3 ML PEN SC SCH ×6 (00:48→22:10)
[2020-01-16] MEDS: PIPERACILLIN/TAZOBACTAM 4.5 GM in DEXTROSE 5% 100 ML IV SCH (04:18)
[2020-01-16] MEDS: fentaNYL DRIP 1,250 MCG/250 ML BAG IV SCH ×2 (04:56→12:54)
[2020-01-16 05:03] LABS: Basophils # (auto) 0.01 K/uL (0-0.2); Basophils % (auto) 0.1 %; Eosinophils # (auto) 0.13 K/uL (0-0.5); Eosinophils % (auto) 1.4 %; Hemoglobin 8.3 g/dL (12.0-16.0); Immature Granulocytes # (auto) 0.06 K/uL (0.00-0.02); Immature Granulocytes % (auto) 0.6 %; Lymphocytes # (auto) 0.82 K/uL (1.2-3.4); Lymphocytes % (auto) 8.8 %; Mean Corpuscular Hemoglobin 26.8 pg (25-34); Mean Corpuscular Hgb Conc 31.9 g/dL (32-36); Mean Corpuscular Volume 83.9 fL (80-100); Monocytes # (auto) 0.75 K/uL (0.11-0.59); Monocytes % (auto) 8.1 %; Platelet Count 413 K/uL (130-400); RDW Coefficient of Variation 18.2 % (11.5-14.5); RDW Standard Deviation 56.2 fL (36.4-46.3); White Blood Count 9.27 K/uL (4.8-10.8)
[2020-01-16 05:07] LABS: Base Excess ABG 2.9 mEq/L (-9-1.8); HCO3 ABG 27 mmol/L (19-24); Oxygen Saturation ABG 91.5 % (90-95); PCO2 ABG 42 mmHg (35-46); PO2 ABG 67 mmHg (80-95); pH ABG 7.44 (7.35-7.45)
[2020-01-16 05:08] LABS: Allen Test POS (Pos)
[2020-01-16 05:20] LABS: BUN Creatinine Ratio 17.5 (10-20); Calcium 8.1 mg/dl (8.5-10.1); Creatinine Clr Calc Pharmacy 35.4 ml/min; Est GFR (African American) 25.4; Est GFR (Non-African American) 21.9; Magnesium 2.3 mg/dl (1.8-2.4); Potassium 3.6 mmol/L (3.5-5.1)
[2020-01-16 05:26] LABS: INR 4.6 (0.9-1.1)
[2020-01-16] MEDS: LEVOTHYROXINE SODIUM 125 MCG TABLET PO SCH (05:36)
[2020-01-16] MEDS: CLOTRIMAZOLE 1% CR 15 GM TUBE TOP SCH ×3 (05:36→22:49)
[2020-01-16] MEDS: BUDESONIDE 0.5 MG/2 ML VIAL (PULMICORT) NEB SCH ×2 (07:10→19:40)
--- NOTE | 2020-01-16 07:16 | XRay Report ---
XR chest 1V portable CLINICAL HISTORY: f/u dyspnea COMPARISON STUDY: 01/15/2020 FINDINGS: Endotracheal tube 2.7 cm above the rodger. Mild stable cardiomegaly. Central catheter in couch perior vena cava. Diaphragms are smooth. Slight improvement in aeration of the lung bases. Slight blunting left lateral costophrenic angle. IMPRESSION: 1. Endotracheal tube 2.7 cm above the rodger. 2. Slight improvement in components of congestive failure. 3. Minimal pleural effusion lateral aspect left lung base. ACT 112: Negative or not required by law. The above report was generated using voice recognition software. It may contain grammatical, syntax or spelling errors. Electronically signed by: Carlos Boyce M.D. 01/16/2020 7:14 AM
--- NOTE | 2020-01-16 09:07 | Critical Care Progress Note ---
Date of Service January 16, 2020 Assessment & Plan (1) Sepsis: Admitted to intensive care unit: Reason Critically Ill: 64-year-old female presenting with influenza and subsequent development of RIGHT-sided pneumonia with sepsis requiring vasopressors as well as BiPAP for oxygenation. Had worsening respiratory failure and bradycardia requiring intubation on 01/13/20. Due to oliguria and worsening DIANNE, a dialysis catheter was also placed and patient underwent dialysis removing 2L of fluid. Plan: NEURO - CAM ICU: Negative Sedation: Continue sedation per protocol. She appears neurologically intact when sedation is lightened and is able to follow commands and nod head yes or no to questions. CARDIAC/VASCULAR - Hypotension: Probably multifactorial due to septic shock as well as accumulation of medications in the setting of renal failure. PRN atropine. Holding amiodarone and beta-blockers. Wean Levophed as tolerated. Holding all anticoagulation. Continue to trend daily INR. 4.6 today. No evidence of bleeding. No indication for acute reversal. RESPIRATORY - Continue current vent settings. Blood gas acceptable. Influenza. Day 5 of 5 Tamiflu. Possible extubation later today. GI/NUTRITION - Continue trophic tube feeds. Per nutrition RENAL/LYTES - Discussed with Dr. Hutchison. Continues to diurese well. - No current issues ENDO - Diabetes BSGs per unit protocol. ISS --> gtt per unit policy. Hypothyroidism: Continue home Levothyroxine 125mcg qd HEME - Baseline anemia: Suspect some component of anemia of chronic disease. Patient had been on iron in the outpatient setting which is being held currently. No indication of acute bleeding and no indication for transfusion currently. ID - Influenza. Complete course of Tamiflu. Cultures of the hip wound are demonstrating staph. In the past they have grown Proteus, E. coli, and Klebsiella. Continue Zosyn, linezolid, and doxycycline pending finalization of cultures. LINES/IV ACCESS - PIVs x1 RIGHT-sided port R dialysis cath L arm A line Heard OG ETT DVT PROPHYLAXIS - DC Coumadin, transition to Hep or Lovenox when INR <1.5 SCDs Code: Full Patient's overall course is quite complicated. Her quality of life prior to this admission appeared poor. Many of her issues are fundamentally unfixable. (2) Influenza A: (3) Pneumonia: (4) Acute kidney injury: Subjective Patient is intubated today. Review of systems is limited as the patient has an endotracheal tube in place. I did ask her if she has any chest pain, abdominal pain or leg pain. She nodded no. She is able to squeeze my hands and move her feet. We have her on a spontaneous breathing trial currently. Physical Exam Constitutional: + morbidly obese and cooperative; no acute distress Eyes: PERRL, conjunctivae normal, anicteric sclerae ENMT: Ears: no hearing impairment ETT secured in place. Neck: + thick neck; no neck crepitus and neck nontender Respiratory: no labored breathing Auscultation: + wheezes (diffuse wheezes throughout ) Cardiovascular: Rate/Rhythm: regular rate (68bpm) Heart Sounds: no murmur Vessels: no carotid bruit Extremities: no edema (though difficult to assess due to patient's body habitus ) Chest (Breasts): Chest: + vascular access device or port (on R ) Gastrointestinal (Abdomen): normal bowel sounds, soft, nontender, no hepatosplenomegaly Skin: + wound (Draining on R lateral thigh, chronic) Neurologic: awake Cranial Nerves: PERRL and normal accommodation Able to follow commands Genitourinary: Heard catheter in place Results & Data ([facility]) Vital Signs (Past 12 Hours) Vital Signs Temp Pulse Resp BP Pulse Ox 01/16/20 07:22 54 L 21 96 01/16/20 06:05 56 L 20 95 01/16/20 06:00 98.6 F 55 L 97 01/16/20 05:37 117/54 L 96 01/16/20 05:00 54 L 96 01/16/20 04:36 54 L 100/64 96 01/16/20 04:00 98.6 F 52 L 97 01/16/20 03:46 54 L 146/55 H 01/16/20 03:36 53 L 103/62 97 01/16/20 03:12 52 L 20 97 01/16/20 03:00 51 L 97 01/16/20 02:37 54 L 98/63 L 98 01/16/20 01:37 52 L 89/61 L 96 01/16/20 00:36 99.0 F 55 L 100/48 L 97 01/15/20 23:22 57 L 26 H 100 01/15/20 22:36 54 L 101/53 L 99 01/15/20 21:36 54 L 107/51 L 98 Coding Level of Care Code Critical Care 1st 30-74 mins Diagnoses Sepsis A41.9 Sepsis acute organ dysfunction status: unspecified Sepsis type: sepsis due to unspecified organism Influenza A J10.1 Pneumonia J18.9 Laterality: right Lung location: lower lobe of lung Pneumonia type: due to unspecified organism Acute kidney injury N17.9 Time Spent (min) 30 (1) Sepsis Sepsis acute organ dysfunction status: unspecified Sepsis type: sepsis due to unspecified organism Qualified Code(s): A41.9 - Sepsis, unspecified organism (2) Pneumonia Laterality: right Lung location: lower lobe of lung Pneumonia type: due to unspecified organism Qualified Code(s): J18.9 - Pneumonia, unspecified organism
[2020-01-16] MEDS: ASPIRIN 81 MG CHEW NG SCH (09:17)
[2020-01-16] MEDS: INSULIN GLARGINE SOLOSTAR 100 UNITS/ML 3 ML PEN SC SCH (09:17)
[2020-01-16] MEDS: MONTELUKAST SODIUM 10 MG TABLET NG SCH (09:17)
[2020-01-16] MEDS: LACTOBACILLUS ACIDOPHILUS (FLORANEX) TAB PO SCH (09:17)
[2020-01-16] MEDS: DOCUSATE SODIUM/SENNA 50/8.6MG TAB PO SCH ×2 (09:17→21:32)
[2020-01-16] MEDS: DOXYCYCLINE HYCLATE 100 MG in DEXTROSE 5% 100 ML IV SCH ×2 (09:20→21:22)
[2020-01-16] MEDS: OSELTAMIVIR PHOSPHATE SUSP 30 MG/5 ML UDP NG SCH ×2 (09:20→21:55)
--- NOTE | 2020-01-16 09:20 | Nephrology Progress Note ---
Date of Service January 16, 2020 Assessment & Plan (1) Acute kidney injury: DIANNE c/w ATN in the setting of pneumonia/infected hip wound/sepsis with associated hemodynamic instability (hypotension, bradycardia). Urine microscopy acellular; +hyaline casts. Emergent HD treatment performed January 12 via a non- tunneled RIJ dialysis catheter in the setting of volume overload and oliguria. -- Nonoliguric. I&O's relatively matched overnight -- Volume status and ectrolyte balance acceptable. No acute indication for HD this am -- Continue to hold Metformin and Sitagliptin. Metoprolol and amiodarone held due to bradycardia and hypotension -- INR > 4.0 this am. Keep temporary dialysis catheter in place (2) Pneumonia involving right lung: -- Zosyn and Doxycycline -- ICU team attempting to wean from ventilator today (3) Influenza A: -- On Tamiflu (4) Wound, open, hip or thigh: -- On Daptomycin Subjective Miss Khanna was seen & examined in the ICU this morning. Plan of care discussed w/ ICU team. Miss Khanna remains on the ventilator. FiO2 has been reduced to 35%. Levophed and Fentanyl gtts were weaned off overnight. SBP is ~ 110 mm Hg. Patient is alert and follows commands appropriately. R IJ temporary dialysis catheter is in place. There is no erythema or bleeding at the site. Heard catheter remains in place. ~ 300 cc faint yellow urine is within the collection bag. Review of Systems Review of Systems: Unobtainable due to endotracheal tube Physical Exam Constitutional: + ill appearing and + overweight Eyes: PERRL, conjunctivae normal, anicteric sclerae ENMT: orotracheal intubation Neck: + thick neck R IJ temporary dialysis catheter with clean dry dressing Respiratory: coarse bilateral breath sounds Cardiovascular: RRR, no murmur, no edema Gastrointestinal (Abdomen): normal bowel sounds, soft, nontender, no hepatosplenomegaly Musculoskeletal: Extremities: no cyanosis Skin: no rashes, warm and dry Neurologic: awake follows commands Results & Data Vital Signs (Past 12 Hours) Vital Signs Temp Pulse Resp BP Pulse Ox 01/16/20 07:22 54 L 21 96 01/16/20 06:05 56 L 20 95 01/16/20 06:00 37 C 55 L 97 01/16/20 05:37 117/54 L 96 01/16/20 05:00 54 L 96 01/16/20 04:36 54 L 100/64 96 01/16/20 04:00 37 C 52 L 97 01/16/20 03:46 54 L 146/55 H 01/16/20 03:36 53 L 103/62 97 01/16/20 03:12 52 L 20 97 01/16/20 03:00 51 L 97 01/16/20 02:37 54 L 98/63 L 98 01/16/20 01:37 52 L 89/61 L 96 01/16/20 00:36 37.2 C 55 L 100/48 L 97 01/15/20 23:22 57 L 26 H 100 01/15/20 22:36 54 L 101/53 L 99 01/15/20 21:36 54 L 107/51 L 98 Laboratory Results Laboratory Tests 01/13/20 01/16/20 01/16/20 Unknown 04:52 04:52 WBC 9.27 Hgb 8.3 L Hct 26.0 L Plt Count 413 H Sodium 132 L Potassium 3.6 Chloride 98 Carbon Dioxide 26 BUN 40 H Creatinine 2.27 H D Glucose 156 H Urine Color Yellow Urine Appearance Clear Urine pH 5.0 Ur Specific [place] 1.020 Urine Protein Trace H Urine Blood Negative Urine Nitrite Negative Urine WBC (Auto) 1-5 Urine RBC (Auto) 0-4 Urine Bacteria (Auto) Negative Diagnostic Findings CXR 01/16/20: 1. Endotracheal tube 2.7 cm above the rodger. 2. Slight improvement in components of congestive failure. 3. Minimal pleural effusion lateral aspect left lung base. PG Care Time/CCT Total # of Minutes Spent Total Time Spent with Patient: Total time spent is greater than 50% in coordination of care (as documented) at patient's floor/unit and/or counseling patient: Coding Level of Care Code 29929 Subseq Hosp Care Lvl 3 Diagnoses Acute kidney injury N17.9 Pneumonia involving right lung J18.9 Influenza A J10.1 Wound, open, hip or thigh
[2020-01-16 10:11] LABS: Alanine Aminotransferase 58 U/L (12-78); Albumin Level 1.8 gm/dl (3.4-5.0); Alkaline Phosphatase 81 U/L (45-117); Aspartate Aminotransferase 23 U/L (15-37); Bilirubin Direct < 0.1 mg/dl (0-0.2); Bilirubin,Total 0.4 mg/dl (0.2-1); Total Protein 6.6 gm/dl (6.4-8.2)
--- NOTE | 2020-01-16 12:25 | Electrocardiogram Report ---
Test Reason : Blood Pressure : / mmHG Vent. Rate : 057 BPM Atrial Rate : 057 BPM P-R Int : 204 ms QRS Dur : 124 ms QT Int : 512 ms P-R-T Axes : 031 -05 054 degrees QTc Int : 498 ms Sinus bradycardia Possible Anterolateral infarct , age undetermined Abnormal ECG When compared with ECG of 13-JAN-2020 10:36, Borderline criteria for Anterior infarct are now Present Borderline criteria for Anterolateral infarct are now Present Nonspecific T wave abnormality, worse in Anterolateral leads Confirmed by Jg Gomes ([id number]) on 01/16/2020 12:25:05 PM Referred By: [facility] Confirmed By:Jg Gomes
[2020-01-16] MEDS: FAMOTIDINE 20 MG in SYRINGE 3 ML IV SCH (12:39)
[2020-01-16] MEDS: NOREPINEPHRINE BIT INJ 8 MG in DEXTROSE 5% 500 ML IV SCH ×2 (12:53→12:54)
--- NOTE | 2020-01-16 13:23 | Electrocardiogram Report ---
Test Reason : Blood Pressure : / mmHG Vent. Rate : 056 BPM Atrial Rate : 056 BPM P-R Int : 206 ms QRS Dur : 122 ms QT Int : 548 ms P-R-T Axes : 043 -26 -08 degrees QTc Int : 528 ms Poor data quality, interpretation may be adversely affected Sinus bradycardia Anterior infarct (cited on or before 14-JAN-2020) Abnormal ECG When compared with ECG of 14-JAN-2020 09:14, (unconfirmed) Inverted T waves have replaced nonspecific T wave abnormality in Anterior leads Confirmed by Jg Gomes ([id number]) on 01/16/2020 1:22:45 PM Referred By: [facility] Confirmed By:Jg Gomes
[2020-01-16] MEDS: metroNIDAZOLE 500 MG/100 ML BAG IV SCH ×2 (13:41→21:59)
[2020-01-16] MEDS ORDERED: metroNIDAZOLE 500 MG/100 ML BAG IV SCH (14:00)
--- NOTE | 2020-01-16 15:22 | Pharmacy Report ---
Pharmacy Glycemic Short Note 2 - Date of Service January 16, 2020 - Glycemic Short BSG Results (Last 24 hours): 01/15/20 01/15/20 01/16/20 15:47 20:07 00:41 Glucose POC Glucose POC Glucose (other) 155 H 149 H 151 H 01/16/20 01/16/20 01/16/20 04:13 04:52 09:16 Glucose 156 H POC Glucose 178 H POC Glucose (other) 153 H 01/16/20 12:31 Glucose POC Glucose 146 H POC Glucose (other) OUTPATIENT ANTIDIABETIC REGIMEN: * Metformin 500mg PO BID * Sitagliptin 50mg daily * Humalog per sliding scale * A1c = 7.4% ASSESSMENT/Plan: 01/15 * Patient's BSGs have been acceptable 142-174 yesterday, patient with trickle feed, to be held for possible extubation later today * Will need to begin covering tube feeds if extubation unsuccessful/start to titrate up * Antibiotics de-escalated to flagyl + doxy * Will continue current insulin parameters for now 01/14 * Tube feeds started yesterday afternoon, 15cc/hr. trickle feeds have minimally effected BSGs at this point. No need to cover carbs. Just correct hyperglycemia at this point. Dw nursing, if trickle feeds are to be escalated we can start to cover carbs. Contine lantus 15u QAM. RECOMMEND: * Holding outpatient oral diabetes medications * Basal insulin with LANTUS 15 units SQ daily * Correctional Insulin with NOVOLOG / REGULAR per scale ACHS or Q6hrs while NPO * Goal Range: Low 100 mg/dL - High 140 mg/dL * Correction Factor: 20 mg/dL/unit * Nutritional / Prandial insulin per carb ratio of 1 unit per 8 grams CHO consumed Pharmacy will continue to provide recommendations in EMR while patient admitted to 1E/2E. Physicians may request pharmacy to continue to follow patient when transferred out of the ICU and/or consult pharmacy to write glycemic control orders Thank you. PLAN FOR DISCHARGE: * to be determined.
--- NOTE | 2020-01-16 15:24 | Palliative Care Consultation ---
Date of Consultation January 16, 2020 Assessment & Plan (1) Goals of care, counseling/discussion: -64 year old female patient with extensive PMH gram-negative septicemia, diabetes mellitus type 2, chronic anticoagulation with warfarin, anemia, chronic joint pain, hypothyroidism, respiratory failure with hypoxia and hypercapnia, paroxysmal A. fib/flutter, acid-fast bacteria present, multiple skin wounds being actively treated by the wound care center, a chronic hip wound from a hip surgery 17 years ago, hypertension, and sleep apnea, presented to the hospital from [facility] where she resides with increasing SOB due to Influenza A. Patient was apparently diagnosed with the flu at the senior care, and her SOB worsened. On arrival, she was found to have right sided pneumonia and sepsis. She was admitted to the ICU on pressors and bipap. She eventually needed intubation. Patient's creatinine was >4 on arrival and peaked at 4.95. A temporary dialysis catheter was emergently placed and patient underwent dialysis treatment on 01/12. Her kidneys have fortunately recovered-- she is now nonoliguric and creatinine is down to 1.75. Apparently during a previous hospital admission, patient had temporary dialysis as well. Patient resides at [facility] for the last year. She is morbidly obese with a BMI of 65. She is nonambulatory at the senior care, but is usually awake, alert and oriented x4. Given patient's comorbidities, poor functional status and ongoing infecti ons/non-healing wounds, palliative care is consulted to discuss goals of care. -Met with patient in room 108. She is awake and oriented x4, but somewhat drowsy. -Patient knows she is in the hospital for the flu and pneumonia. She is also aware that she has now needed emergent, temporary dialysis twice now. -I discussed patient's goals of care and what her quality of life is like at [facility]. Patient has two brothers, one in [place] and one in [place]. She doesn't seem them often, however has many friends locally. 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 -patient maintains that she wants to be a full code and full treatment. She states that she is unsure if she would want to live her life on long-term dialysis, but she would at least want to give dialysis a try if needed. Patient feels that she has a good quality of life. -Patient is somewhat drowsy and difficult to hold a conversation with at this time. I will stop by tomorrow to try and further discuss goals. I would also like to clarify who her decision maker would be if she was unable and hopefully complete living will if she is agreeable. (2) Wound, open, hip or thigh: (3) Acute kidney injury: (4) Pneumonia involving right lung: (5) Influenza A: History of Present Illness Attending Physician: Arnoldo Irvin History of Present Illness This 64 year old female patient with extensive PMH gram-negative septicemia, diabetes mellitus type 2, chronic anticoagulation with warfarin, anemia, chronic joint pain, hypothyroidism, respiratory failure with hypoxia and hypercapnia, paroxysmal A. fib/flutter, acid-fast bacteria present, multiple skin wounds being actively treated by the wound care center, a chronic hip wound from a hip surgery 17 years ago, hypertension, and sleep apnea, presented to the hospital from [facility] where she resides with increasing SOB due to Influenza A. Patient was apparently diagnosed with the flu at the senior care, and her SOB worsened. On arrival, she was found to have right sided pneumonia and sepsis. She was admitted to the ICU on pressors and bipap. She eventually needed intubation. Patient's creatinine was >4 on arrival and peaked at 4.95. A temporary dialysis catheter was emergently placed and patient underwent dialysis treatment on 01/12. Her kidneys have fortunately recovered-- she is now nonoliguric and creatinine is down to 1.75. Apparently during a previous hospital admission, patient had temporary dialysis as well. Patient resides at [facility] for the last year. She is morbidly obese with a BMI of 65. She is nonambulatory at the senior care, but is usually awake, alert and oriented x4. Given patient's comorbidities, poor functional status and ongoing infections/non-healing wounds, palliative care is consulted to discuss goals of care. Thank you kindly for this consult. Palliative care team will follow as needed. Allergies Allergy/AdvReac Type Severity Reaction Status Date / Time Iodinated Contrast Media Allergy Intermediate HIVES Verified 01/12/20 23:02 latex Allergy Unknown LOW LEVEL Verified 01/12/20 23:02 LATEX ALLERGY pineapple Allergy Unknown Unknown Verified 01/12/20 23:[address] HICKS Verified 01/12/20 23:02 ASKED THAT ALLERGY BE ADDED 07/31/08 Sulfa (Sulfonamide Allergy Unknown HIVES Verified 01/12/20 23:02 Antibiotics) vancomycin Allergy Unknown HIVES, GI Verified 01/12/20 23:02 UPSET Home Medications Home Medications Medication Instructions Recorded Confirmed Type aspirin 81 mg PO DAILY 08/02/18 01/12/20 History atorvastatin 40 mg PO HS 08/02/18 01/12/20 History fluticasone propionate 2 spray INTRANASAL HS 08/02/18 01/12/20 History gabapentin 600 mg PO TID 08/02/18 01/12/20 History magnesium oxide 400 mg PO QAM 08/02/18 01/12/20 History multivitamin with minerals 1 tab PO QAM 08/02/18 01/12/20 History [Multiple Vitamin-Minerals] Lactinex 1 tab PO DAILY 10/13/19 01/12/20 History albuterol sulfate [Ventolin HFA] 2 puff INHALATION Q4 PRN 10/13/19 01/12/20 History insulin lispro [Humalog U-100 1 sliding scale dose SUBCUT 10/13/19 01/12/20 History Insulin] USEASDIRECTD PRN ipratropium-albuterol 3 ml INHALATION UD PRN 10/13/19 01/12/20 History montelukast 10 mg PO QAM 10/13/19 01/12/20 History sennosides-docusate sodium 1 tab-cap PO BID 10/13/19 01/12/20 History [Senokot-S] oxycodone 5 mg PO TID PRN #10 tab 10/19/19 01/12/20 Rx furosemide [Lasix] 40 mg PO BID 10/23/19 01/12/20 History sitagliptin 50 mg PO DAILY #30 tab 11/01/19 01/12/20 Rx warfarin 5 mg PO DAILY #30 tab 11/01/19 01/12/20 Rx acetaminophen 650 mg PO Q6H PRN 11/18/19 01/12/20 History amiodarone 200 mg PO QAM 11/18/19 01/12/20 History fluticasone propion-salmeterol 1 inh INHALATION BID 11/18/19 01/12/20 History [Advair Diskus] lisinopril 20 mg tablet 20 mg PO DAILY #30 tab 12/21/19 01/12/20 Rx amoxicillin 500 mg PO BID 01/12/20 01/12/20 History amoxicillin-pot clavulanate 1 tab PO BID 01/12/20 01/12/20 History [Augmentin] bisacodyl [Dulcolax (bisacodyl)] 10 mg MA DAILY PRN 01/12/20 01/12/20 History clotrimazole 1 applic TOPICAL Q8H 01/12/20 01/12/20 History ferrous sulfate 325 mg PO DAILY 01/12/20 01/12/20 History levothyroxine 125 mcg PO DAILY 01/12/20 01/12/20 History magnesium hydroxide [Milk of 30 ml PO DAILY PRN 01/12/20 01/12/20 History Magnesia] metformin 500 mg PO BID 01/12/20 01/12/20 History metoprolol tartrate 25 mg PO Q12H 01/12/20 01/12/20 History Patient History Medical History A-fib Acute and chronic respiratory failure with hypoxia Acute kidney failure Anemia Asthma (Chronic) CHF exacerbation (Acute) Chronic joint pain (Acute) CVA (cerebral vascular accident) (Acute) DM type 2 (diabetes mellitus, type 2) (Chronic) History of left shoulder replacement (Acute) Hypertension (Chronic) Hypothyroid Left cervical radiculopathy (Acute) Morbid obesity with body mass index of 50 or higher (Chronic) Osteoarthritis (Chronic) Pneumonia Proteinuria Respiratory failure with hypoxia and hypercapnia (Acute) Sleep apnea (Chronic) "on cpap" Stroke-like symptoms Volume overload (Acute) Wound cellulitis Surgical History Status post bilateral total hip replacement (Chronic) Family History Other Family history non-contributory Social History Preferred Language: Croatian Communication Ability: Unable 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 Beliefs That Will Affect Care: None marital status: Single Current Living Situation: Group Home Current Living Situation Comment: [facility] Feels Safe at Home: Yes Smoking Status: Never smoker Second Hand Exposure: No ; Hx Alcohol Use: No Hx Substance Use: No Review of Systems Review of Systems: + weakness + SOB with exertion No chest pain or edema No N/V Physical Exam Constitutional: + morbidly obese Eyes: PERRL (pupils 2mm bilaterally) ENMT: external ear and nose normal, oropharynx normal Respiratory: no labored breathing Auscultation: + diminished lung sounds and + rhonchi Cardiovascular: Rate/Rhythm: regular rate and regular rhythm Extremities: no edema Gastrointestinal (Abdomen): Inspection/Auscultation: normal bowel sounds Percussion/Palpation: abdomen soft Neurologic: moves all extremities and awake; not confused Psychiatric: Orientation: oriented to person, oriented to place and oriented to time currently somewhat drowsy after extubation this morning Results & Data Vital Signs (Past 12 Hours) Vital Signs Temp Pulse Resp BP Pulse Ox 01/16/20 12:00 59 L 100/48 L 01/16/20 08:00 60 100/48 L 01/16/20 07:22 54 L 21 96 01/16/20 06:05 56 L 20 95 01/16/20 06:00 37 C 55 L 97 01/16/20 05:37 117/54 L 96 01/16/20 05:00 54 L 96 01/16/20 04:36 54 L 100/64 96 01/16/20 04:00 37 C 52 L 97 01/16/20 03:46 54 L 146/55 H 01/16/20 03:36 53 L 103/62 97 Coding Level of Care Code 05360 Inpt Consult Level 2 Diagnoses Goals of care, counseling/discussion Z71.89 Wound, open, hip or thigh Acute kidney injury N17.9 Pneumonia involving right lung J18.9 Influenza A J10.1 Time Spent (min) 50 Time Spent Midlevel 50 minutes with >50% of the time spent at bedside with patient discussing condition and GOC.
[2020-01-16] MEDS ORDERED: STAT IV Infusion **Titration per Protocol STA (16:17)
--- NOTE | 2020-01-16 17:42 | Hospitalist Progress Note ---
Date of Service January 16, 2020 Assessment & Plan (1) Acute on chronic respiratory failure with hypoxia and hypercapnia: acute component 2nd to influenza A infection, ?right-sided superinfection [pneumonia], volume overload in setting of ARF/DIANNE. s/p intubation 01/12. s/p successful extubation 01/15. cont NC during the day and BIPAP at HS. (2) Septic shock: 2nd to flu, possible pneumonia, etc pressors off resolved (3) Influenza A: started on tamiflu ~01/10/2020. has completed 5+ days of tamiflu. d/c tamiflu. supportive care. (4) Acute renal failure (ARF): 2nd to sepsis-associated ATN. s/p UF on 01/14/20 by nephrology. renal function improving; she is nonoliguric. acid/base status is acceptable. no HD planned today. nephrology continues to follow. (5) Wound, open, hip or thigh: chronic, right hip - 2nd to MRSA and bacteroides based on most recent culture results. IV doxy and IV flagyl currently being used. daptomycin d/c by critical care team. has seen orthopedics and wound care. wound goes back to 2018 in setting of right hip fracture at that time. (6) Pneumonia involving right lung: question of. has received numerous antibiotics since admission - cefepime, zosyn, doxy. zosyn stopped today by ICU team. remains on doxy. will repeat cxr in am. low threshold to broaden abx again if needed. (7) Stage II pressure ulcer of buttock: wound care team recs appreciated frequent turning etc (8) Chronic anticoagulation: INR supratherapeutic today no evidence of bleeding any location simply hold warfarin INR am (9) DM type 2 (diabetes mellitus, type 2): pharmacy glycemic team managing appreciate input control acceptable at this time holding gabapentin in setting of acute renal failure holding EFRAÍN in setting of ATN/ARF (10) Paroxysmal atrial fibrillation: noted no a.fib overnight holding BB due to recent shock patient had been bradycardic and amiodarone held earlier this stay too can likely resume this tomorrow (11) Anemia: H/H low but acceptable b12/folate in 11/2019 were wnl ferritin was <50 in November resume ferrous sulfate (12) Hypothyroid: TSH 4.5 in 12/2019 cont levothyroxine 125mcg daily (13) Morbid obesity with body mass index of 50 or higher: BMI 65 (14) Hypertension: holding PO agents due to recent shock follow she is now off pressors (15) Sleep apnea: BIPAP HS (16) Hyponatremia: 2nd to acute renal failure BMP daily (17) DVT prophylaxis: on coumadin with supratherapeutic INR at this time will need PT/OT to transfer from ICU to PCU today Admission and Anticipated Discharge Date Admission Date: January 13, 2020 Subjective Overnight events reviewed. Spoke with ICU attending - plan is for extubation today. Sedation weaned off. On scant dose of levophed. During rounds patient was awake/alert and following commands. Shook her head "no" when asked if she as having any pain in her abdomen or chest. Review of Systems Review of Systems: Unobtainable due to endotracheal tube Physical Exam Constitutional: + morbidly obese; no acute distress and no altered mental status ENMT: ETT and OG tubes in place Respiratory: no respiratory distress Auscultation: + diminished lung sounds (bases) and + crackles; no wheezes Cardiovascular: Rate/Rhythm: regular rate and regular rhythm Heart Sounds: normal S1 and normal S2; no murmur Vessels: posterior tibial pulses present and dorsalis pedis pulses present; no JVD Extremities: normal capillary refill; no edema Gastrointestinal (Abdomen): normal bowel sounds, soft, nontender, no hepatosplenomegaly Percussion/Palpation: + hernia (umbilical - reducible ) Skin: right IJ catheter clean; right upper chest port clean Neurologic: handgrip 5/5 b/l; moves toes both feet symmetrically Psychiatric: Orientation: alert Results & Data ([facility]) Vital Signs (Past 12 Hours) Vital Signs Temp Pulse Resp BP Pulse Ox 01/16/20 15:22 57 L 101/43 L 01/16/20 12:00 59 L 100/48 L 01/16/20 10:20 58 L 22 99 01/16/20 08:00 60 100/48 L 01/16/20 07:22 54 L 21 96 01/16/20 06:05 56 L 20 95 01/16/20 06:00 37 C 55 L 97 Laboratory Results Laboratory Results - last 24 hr 01/13/20 01/15/20 01/16/20 16:04 20:07 00:41 WBC RBC Hgb Hct MCV MCH MCHC RDW Std Deviation RDW Coeff of Mehnaz Plt Count MPV Immature Gran % (Auto) Neut % (Auto) Lymph % (Auto) Archuleta % (Auto) Eos % (Auto) Baso % (Auto) Immature Gran # (Auto) Neut # (Auto) Lymph # (Auto) [place] # (Auto) Eos # (Auto) Baso # (Auto) PT INR ABG pH ABG pCO2 ABG pO2 ABG HCO3 ABG O2 Saturation ABG Base Excess Darrel Test Barometric Pressure Oxygen Given Sodium Potassium Chloride Carbon Dioxide Anion Gap BUN Creatinine Est Cr Clr Drug Dosing Est GFR ( Amer) Est GFR (Non-Af Amer) BUN/Creatinine Ratio Glucose POC Glucose POC Glucose (other) 149 H 151 H Calcium Magnesium Total Bilirubin Direct Bilirubin AST ALT Alkaline Phosphatase Total Protein Albumin Hep B Core IgM Ab NON-REACTIVE 01/16/20 01/16/20 01/16/20 04:13 04:52 04:52 WBC 9.27 RBC 3.10 L Hgb 8.3 L Hct 26.0 L MCV 83.9 MCH 26.8 MCHC 31.9 L RDW Std Deviation 56.2 H RDW Coeff of Mehnaz 18.2 H Plt Count 413 H MPV 9.0 Immature Gran % (Auto) 0.6 Neut % (Auto) 81.0 Lymph % (Auto) 8.8 Archuleta % (Auto) 8.1 Eos % (Auto) 1.4 Baso % (Auto) 0.1 Immature Gran # (Auto) 0.06 H Neut # (Auto) 7.50 H Lymph # (Auto) 0.82 L Archuleta # (Auto) 0.75 H Eos # (Auto) 0.13 Baso # (Auto) 0.01 PT INR ABG pH ABG pCO2 ABG pO2 ABG HCO3 ABG O2 Saturation ABG Base Excess Darrel Test Barometric Pressure Oxygen Given Sodium 132 L Potassium 3.6 Chloride 98 Carbon Dioxide 26 Anion Gap 8.0 BUN 40 H Creatinine 2.27 H D Est Cr Clr Drug Dosing 35.4 Est GFR ( Amer) 25.4 Est GFR (Non-Af Amer) 21.9 BUN/Creatinine Ratio 17.5 Glucose 156 H POC Glucose POC Glucose (other) 153 H Calcium 8.1 L Magnesium 2.3 Total Bilirubin Direct Bilirubin AST ALT Alkaline Phosphatase Total Protein Albumin Hep B Core IgM Ab 01/16/20 01/16/20 01/16/20 04:52 04:52 04:52 WBC RBC Hgb Hct MCV MCH MCHC RDW Std Deviation RDW Coeff of Mehnaz Plt Count MPV Immature Gran % (Auto) Neut % (Auto) Lymph % (Auto) [place] % (Auto) Eos % (Auto) Baso % (Auto) Immature Gran # (Auto) Neut # (Auto) Lymph # (Auto) [place] # (Auto) Eos # (Auto) Baso # (Auto) PT 45.0 H INR 4.6 H ABG pH 7.44 ABG pCO2 42 ABG pO2 67 L ABG HCO3 27 H ABG O2 Saturation 91.5 ABG Base Excess 2.9 H Darrel Test POS Barometric Pressure 739.8 Oxygen Given 35% Sodium Potassium Chloride Carbon Dioxide Anion Gap BUN Creatinine Est Cr Clr Drug Dosing Est GFR ( Amer) Est GFR (Non-Af Amer) BUN/Creatinine Ratio Glucose POC Glucose POC Glucose (other) Calcium Magnesium Total Bilirubin 0.4 Direct Bilirubin < 0.1 AST 23 ALT 58 Alkaline Phosphatase 81 Total Protein 6.6 Albumin 1.8 L Hep B Core IgM Ab 01/16/20 01/16/20 01/16/20 09:16 12:31 17:06 WBC RBC Hgb Hct MCV MCH MCHC RDW Std Deviation RDW Coeff of Mehnaz Plt Count MPV Immature Gran % (Auto) Neut % (Auto) Lymph % (Auto) [place] % (Auto) Eos % (Auto) Baso % (Auto) Immature Gran # (Auto) Neut # (Auto) Lymph # (Auto) [place] # (Auto) Eos # (Auto) Baso # (Auto) PT INR ABG pH ABG pCO2 ABG pO2 ABG HCO3 ABG O2 Saturation ABG Base Excess Darrel Test Barometric Pressure Oxygen Given Sodium Potassium Chloride Carbon Dioxide Anion Gap BUN Creatinine Est Cr Clr Drug Dosing Est GFR ( Amer) Est GFR (Non-Af Amer) BUN/Creatinine Ratio Glucose POC Glucose 178 H 146 H 102 H POC Glucose (other) Calcium Magnesium Total Bilirubin Direct Bilirubin AST ALT Alkaline Phosphatase Total Protein Albumin Hep B Core IgM Ab PG Care Time/CCT Total # of Minutes Spent Total Time Spent with Patient: Total time spent is greater than 50% in coordination of care (as documented) at patient's floor/unit and/or counseling patient: Coding Level of Care Code 65248 Subs Hosp Care [facility] 3 Diagnoses Acute on chronic respiratory failure with hypoxia and hypercapnia J96.21; J96.22 Septic shock A41.9; R65.21 Influenza A J10.1 Acute renal failure (ARF) N17.9 Acute renal failure type: unspecified Wound, open, hip or thigh Pneumonia involving right lung J18.9 Stage II pressure ulcer of buttock L89.302 Chronic anticoagulation Z79.01 DM type 2 (diabetes mellitus, type 2) E11.9; Z79.4 Diabetes mellitus complication status: without complication Diabetes mellitus long term care social worker insulin use: with residential use Paroxysmal atrial fibrillation I48.0 Anemia D64.9 Hypothyroid E03.9 Hypothyroidism type: unspecified Morbid obesity with body mass index of 50 or higher E66.01 Hypertension I10 Hypertension type: essential hypertension Sleep apnea G47.33 Sleep apnea type: obstructive Hyponatremia E87.1 DVT prophylaxis Z29.9 (1) Acute renal failure (ARF) Acute renal failure type: unspecified Qualified Code(s): N17.9 - Acute kidney failure, unspecified (2) DM type 2 (diabetes mellitus, type 2) Diabetes mellitus complication status: without complication Diabetes mellitus long term care social worker insulin use: with residential use Qualified Code(s): E11.9 - Type 2 diabetes mellitus without complications; Z79.4 - group home (current) use of insulin (3) Hypothyroid Hypothyroidism type: unspecified Qualified Code(s): E03.9 - Hypothyroidism, unspecified (4) Hypertension Hypertension type: essential hypertension Qualified Code(s): I10 - Essential (primary) hypertension (5) Sleep apnea Sleep apnea type: obstructive Qualified Code(s): G47.33 - Obstructive sleep apnea (adult) (pediatric)
[2020-01-16] MEDS: FLUTICASONE PROPIONATE NA SPR 16 GM BTL SCH (21:26)
[2020-01-16] MEDS ORDERED: Nursing to Pharmacy Communication ONE (22:26)
[2020-01-16] MEDS: ATORVASTATIN 40 MG TAB NG SCH (22:30)
[2020-01-17] MEDS: INSULIN ASPART 100 UNITS/ML 3 ML PEN SC SCH ×6 (00:33→20:46)
[2020-01-17] MEDS: metroNIDAZOLE 500 MG/100 ML BAG IV SCH ×3 (06:03→21:42)
[2020-01-17] MEDS: CLOTRIMAZOLE 1% CR 15 GM TUBE TOP SCH ×3 (06:05→21:42)
[2020-01-17] MEDS: LEVOTHYROXINE SODIUM 125 MCG TABLET PO SCH (06:17)
[2020-01-17] MEDS: BUDESONIDE 0.5 MG/2 ML VIAL (PULMICORT) NEB SCH ×2 (07:05→19:40)
[2020-01-17 07:18] LABS: Hematocrit (blood only) 25.7 % (37-47); Hemoglobin 7.9 g/dL (12.0-16.0); Mean Corpuscular Hemoglobin 26.6 pg (25-34); Mean Corpuscular Hgb Conc 30.7 g/dL (32-36); Mean Corpuscular Volume 86.5 fL (80-100); Mean Platelet Volume 8.8 fL (7.4-10.4); Platelet Count 439 K/uL (130-400); RDW Coefficient of Variation 18.1 % (11.5-14.5); RDW Standard Deviation 56.3 fL (36.4-46.3); Red Blood Count 2.97 M/uL (4.2-5.4); White Blood Count 7.03 K/uL (4.8-10.8)
--- NOTE | 2020-01-17 07:21 | XRay Report ---
SINGLE VIEW CHEST CLINICAL HISTORY: Respiratory failure. FINDINGS: An AP, portable, upright chest radiograph is compared to study dated 01/16/2020. The examinat ion is degraded by portable technique, apical lordotic positioning, and patient rotation. A right int ernal jugular central venous catheter and a right subclavian central venous infusion port are unchang ed in position. Endotracheal and enteric tubes have been removed. The heart is enlarged noting athero sclerotic calcification of the thoracic aorta. Pulmonary vascular congestion persists. There is bibas ilar scarring/atelectasis. No large pleural effusion or pneumothorax is seen. The skeletal structures are osteopenic. The bony thorax is grossly intact. A left shoulder arthroplasty is in place. IMPRESSION: 1. Endotracheal and enteric tubes have been removed. 2. Cardiomegaly. Pulmonary vascular congestion persists. ACT 112: Negative or not required by law. Electronically signed by: Daron Venegas M.D. 01/17/2020 7:20 AM
[2020-01-17 07:57] LABS: Calcium 8.6 mg/dl (8.5-10.1); Creatinine Clr Calc Pharmacy 46.1 ml/min; Est GFR (African American) 34.8; Potassium 3.6 mmol/L (3.5-5.1)
[2020-01-17 08:39] LABS: Prothrombin Time 41.3 Seconds (9.0-12.0)
[2020-01-17 08:41] LABS: INR 4.2 (0.9-1.1)
--- NOTE | 2020-01-17 09:57 | Nephrology Progress Note ---
Date of Service January 17, 2020 Assessment & Plan (1) Acute kidney injury: DIANNE c/w ATN in the setting of pneumonia/infected hip wound/sepsis with associated hemodynamic instability (hypotension, bradycardia). Urine microscopy acellular; +hyaline casts. Emergent HD treatment performed January 12 via a non- tunneled RIJ dialysis catheter in the setting of volume overload and oliguria. -- Nonoliguric. I&O's relatively matched overnight -- Volume status and ectrolyte balance acceptable. No acute indication for HD this am -- Cr improved to 1.7. Patient is nearing baseline function. No further Nephrology evaluation indicated at this time. OK for critical care to remove temporary dialysis catheter. Will sign off. Please call if further Nephrology assistance is needed. (2) Pneumonia involving right lung: (3) Influenza A: (4) Wound, open, hip or thigh: Subjective Miss Khanna was seen & examined in her hospital room this morning. She is breathing comfortably on O2 at 4L/min NC. She denies flank pain. Heard catheter remains in place draining faint yellow urine. Review of Systems Constitutional: + weakness; no fever Eyes: no worsening vision and no problem reported Ear, Nose, Mouth, Throat: no problem reported Respiratory: no cough and no dyspnea Cardiovascular: no chest pain and no palpitations Gastrointestinal: no abdominal pain, no nausea, no vomiting and no diarrhea/loose stools Genitourinary: no hematuria Musculoskeletal: no back pain Integumentary: no rash Neurologic: no confusion Physical Exam Constitutional: + overweight; not in distress Eyes: PERRL, conjunctivae normal, anicteric sclerae Neck: + thick neck Cardiovascular: RRR, no murmur, no edema Gastrointestinal (Abdomen): normal bowel sounds, soft, nontender, no hepatosplenomegaly Musculoskeletal: Extremities: no cyanosis Skin: no rashes, warm and dry Neurologic: awake Results & Data Vital Signs (Past 12 Hours) Vital Signs Temp Pulse Pulse Resp BP Pulse Ox 01/17/20 07:08 98 H 18 93 01/17/20 07:01 36.8 C 58 L 20 105/55 L 97 01/17/20 04:04 36.7 C 60 20 116/59 L 97 01/17/20 00:18 36.6 C 59 L 19 104/59 L 96 03/10/20 00:00 57 L Laboratory Results Laboratory Tests 01/17/20 01/17/20 06:09 06:09 WBC 7.03 Hgb 7.9 L Hct 25.7 L Plt Count 439 H Sodium 137 Potassium 3.6 Chloride 103 Carbon Dioxide 30 BUN 37 H Creatinine 1.75 H D Glucose 87 PG Care Time/CCT Total # of Minutes Spent Total Time Spent with Patient: Total time spent is greater than 50% in coordination of care (as documented) at patient's floor/unit and/or counseling patient: Coding Level of Care Code 73924 Subseq Hosp Care Lvl 3 Diagnoses Acute kidney injury N17.9 Pneumonia involving right lung J18.9 Influenza A J10.1 Wound, open, hip or thigh
[2020-01-17] MEDS ORDERED: COUGH DROP (SUGAR FREE) LOZ 24 LOZ/1 BOX BUCCAL ONE (10:18)
[2020-01-17] MEDS: ASPIRIN 81 MG CHEW NG SCH (10:25)
[2020-01-17] MEDS: DOCUSATE SODIUM/SENNA 50/8.6MG TAB PO SCH ×2 (10:26→21:42)
[2020-01-17] MEDS: MONTELUKAST SODIUM 10 MG TABLET NG SCH (10:26)
[2020-01-17] MEDS: LACTOBACILLUS ACIDOPHILUS (FLORANEX) TAB PO SCH (10:26)
[2020-01-17] MEDS: FERROUS SULFATE 325 MG TAB PO SCH ×2 (10:27→20:46)
[2020-01-17] MEDS: INSULIN GLARGINE SOLOSTAR 100 UNITS/ML 3 ML PEN SC SCH (10:27)
[2020-01-17] MEDS: DOXYCYCLINE HYCLATE 100 MG in DEXTROSE 5% 100 ML IV SCH ×2 (10:33→20:41)
[2020-01-17] MEDS: FAMOTIDINE 20 MG in SYRINGE 3 ML IV SCH (12:16)
[2020-01-17] MEDS ORDERED: Nursing to Pharmacy Communication ONE (12:17)
[2020-01-17] MEDS: FAMOTIDINE 20 MG TAB PO SCH (12:55)
--- NOTE | 2020-01-17 13:41 | XRay Report ---
XR knee LT 1 or 2V routine CLINICAL HISTORY: left knee pain; eval for effusion, CPPD, etc COMPARISON: August 02, 2018 DISCUSSION: The bones are osteopenic. No acute fractures are visualized. There are severe osteoarthri tic changes present. There are vascular calcifications. The study is technically limited from a posit ioning standpoint. No large joint effusion is visualized. IMPRESSION: 1. Technically limited study 2. No acute fractures 3. Severe osteoarthritic change ACT 112: Negative or not required by law. Electronically signed by: Seth Navarro M.D. 01/17/2020 1:40 PM
[2020-01-17] MEDS: ALBUT/IPRATROP 3MG/0.5MG NEB 3 ML VIAL NEB SCH ×2 (15:10→19:40)
--- NOTE | 2020-01-17 16:16 | Palliative Care Progress Note ---
Date of Service January 17, 2020 Assessment & Plan (1) Goals of care, counseling/discussion: -64 year old female patient with extensive PMH A. fib/flutter-on chronic AC, diabetes mellitus type 2, respiratory failure with hypoxia and hypercapnia, multiple skin wounds being actively treated by the wound care center, a chronic hip wound from a hip surgery 17 years ago, hypertension, and KHALIDA, presented to the hospital from [facility] on 01/12 with increasing SOB, patient tested positive for Influenza A. Patient was apparently diagnosed with the flu at the long term, and her SOB worsened. On arrival, she was found to have right sided pneumonia and sepsis. She was admitted to the ICU on pressors and bipap. She eventually required intubation. Patient's creatinine was >4 on arrival and peaked at 4.95. A temporary dialysis catheter was emergently placed and patient underwent dialysis on 01/12. Her kidneys have fortunately recovered-- she is now nonoliguric and creatinine is trending down . Apparently during a previous hospital admission, patient had temporary dialysis as well. Patient has resided at [facility] for the past year. She is morbidly obese with a BMI of 65. She is nonambulatory at the long term, but is usually awake, alert and oriented x4. Given patient's comorbidities, poor functional status and ongoing infections/non-healing wounds, palliative care is consulted to discuss goals of care. -Met with patient in room 211. She is awake, alert and oriented x4. - Patient has two brothers, patient named her brother,Corey, as the person she would want to make medical decisions for her if she was unable to. Patient does not have a living will or power of bankruptcy attorney. Patient was encouraged to discuss her wishes with her brother. -patient maintains that she wants to be a full code and full treatment. She states that she is unsure if she would want to live her life on long-term dialysis, but she would at least want to give dialysis a try if needed. Patient feels that she has a good quality of life. -Patient is improving-we will continue with current care and follow along as needed. (2) Wound, open, hip or thigh: Continue current wound care orders (3) Acute kidney injury: Improving, nephrology following (4) Pneumonia involving right lung: Improving clinically, continue O2 and aggressive pulmonary toilet (5) Influenza A: Completed course of Tamiflu Subjective Patient seen and examined, no family at bedside. Patient currently in room 211 Patient resting comfortably, easily aroused, alert and oriented x4. Patient reports that her breathing is improving. Review of Systems Review of Systems: Patient denies fever, chills, chest pain, increased shortness of breath, or abdominal pain Positive for cough Physical Exam Physical Exam: PE: NAD HEENT: EOMI, hearing within normal limits Respiratory: Few coarse breath sounds-clear post cough, good air movement bilaterally, on O2 at 3 L CV: Regular rate Abdomen: Soft, morbidly obese Extremities: Right lower extremity wound Neuro: Alert and oriented x4 Results & Data Vital Signs (Past 12 Hours) Vital Signs Temp Pulse Pulse Resp BP Pulse Ox 01/17/20 16:00 64 01/17/20 15:29 98.1 F 59 L 13 113/50 L 95 01/17/20 15:13 63 16 97 01/17/20 08:00 106 H 01/17/20 07:08 98 H 18 93 01/17/20 07:01 98.2 F 58 L 20 105/55 L 97 PG Care Time/CCT Total # of Minutes Spent Total Time Spent with Patient: Total time spent 25 minutes with greater than 50% of the time spent at bedside discussing advanced directives and confirming goals of care. Coding Level of Care Code 53269 Subseq Hosp Care Lvl 2 Diagnoses Goals of care, counseling/discussion Z71.89 Wound, open, hip or thigh Acute kidney injury N17.9 Pneumonia involving right lung J18.9 Influenza A J10.1 Time Spent (min) 25
[2020-01-17] MEDS: DICLOFENAC SOD 1% GEL 100 GM TUBE EXT SCH ×3 (17:43→20:49)
--- NOTE | 2020-01-17 20:37 | Hospitalist Progress Note ---
Date of Service January 17, 2020 Assessment & Plan (1) Acute on chronic respiratory failure with hypoxia and hypercapnia: acute component 2nd to influenza A infection, ?right-sided superinfection [pneumonia], volume overload in setting of ARF/DIANNE. s/p intubation 01/12. s/p successful extubation 01/15. cont NC during the day and BIPAP at HS. improving slowly. if Cr continues to improve would attempt gentle diuresis tomorrow. (2) Sepsis: PRESENT ON ADMISSION - 2nd to fluA infection +/- pneumonia. progressed after admission to septic shock. sepsis now resolved. (3) Septic shock: 2nd to flu, possible pneumonia, etc pressors off resolved (4) Influenza A: resolved started on tamiflu ~01/10/2020. completed 5+ days of tamiflu. (5) Acute renal failure (ARF): 2nd to sepsis-associated ATN. CONTINUES TO IMPROVE. s/p UF on 01/14/20 by nephrology. nonoliguric. If INR is lower tomorrow remove temporary dialysis catheter. appreciate nephrology assistance. (6) Wound, open, hip or thigh: chronic, right hip - 2nd to MRSA and bacteroides based on most recent culture results. IV doxy and IV flagyl currently being used. daptomycin d/c by critical care team. has seen orthopedics and wound care. wound goes back 15+ years according to patient. had right hip replacement 17 years ago and developed post-op wound that resolves, then returns, and so forth. (7) Pneumonia involving right lung: question of. had received numerous antibiotics since admission - cefepime, zosyn, doxy. remains on doxy with flagyl. seems to be improving with such - leave alone for now. chest x-ray today stable. low threshold to broaden abx again if needed. (8) Stage II pressure ulcer of buttock: wound care team recs appreciated frequent turning etc (9) Chronic anticoagulation: INR again supratherapeutic today no evidence of bleeding any location cont to hold warfarin INR am (10) DM type 2 (diabetes mellitus, type 2): pharmacy glycemic team managing appreciate input control acceptable at this time holding gabapentin in setting of acute renal failure holding EFRAÍN in setting of ATN/ARF (11) Paroxysmal atrial fibrillation: noted again no a.fib overnight holding BB due to recent shock patient had been bradycardic and amiodarone held earlier this stay too HRs stable if HR stable overnight resume amiodarone on 01/17 (12) Anemia: H/H low but acceptable b12/folate in 11/2019 were wnl ferritin was <50 in November increase ferrous sulfate to BID dosing repeat CBC w/ ferritin in am tomorrow (13) Hypothyroid: TSH 4.5 in 12/2019 cont levothyroxine 125mcg daily (14) Morbid obesity with body mass index of 50 or higher: BMI 65 (15) Hypertension: holding PO agents due to recent shock and BPs cont to be low-normal (16) Sleep apnea: BIPAP HS (17) Hyponatremia: 2nd to acute renal failure Na now normal (18) Left knee pain: check x-rays, r/o effusion, r/o CPPD changes start voltaren gel qid no evidence on exam of septic knee etc (19) DVT prophylaxis: on coumadin with supratherapeutic INR at this time PT/OT brother updated by phone today appreciate palliative care consult Admission and Anticipated Discharge Date Admission Date: January 13, 2020 Subjective pt c/o left knee pain. started overnight. hurts to move it. she has never had gout to her knowledge. breathing improved. overall she feels better. denies other complaints. tele overnight - [email or web address] Review of Systems Constitutional: + fatigue; no fever, no chills and no anorexia Respiratory: + cough and + dyspnea on exertion Cardiovascular: no chest pain Gastrointestinal: no abdominal pain Physical Exam Constitutional: + morbidly obese; no acute distress and no altered mental status ENMT: external ear and nose normal, oropharynx normal Respiratory: no respiratory distress Auscultation: + diminished lung sounds (bases), + crackles and + wheezes (faint end-exp wheeze b/l ) Cardiovascular: Rate/Rhythm: regular rate and regular rhythm Heart Sounds: normal S1 and normal S2; no murmur Vessels: posterior tibial pulses present and dorsalis pedis pulses present; no JVD Extremities: normal capillary refill; no edema Gastrointestinal (Abdomen): normal bowel sounds, soft, nontender, no hepatosplenomegaly Percussion/Palpation: + hernia (umbilical - reducible ) Musculoskeletal: left knee - no warmth, no redness, no obvious effusion; initially was tender to touch; however, with passive ROM she had NO pain Skin: right IJ catheter clean; right upper chest port clean Psychiatric: Orientation: alert, oriented to person and oriented to place Results & Data ([facility]) Vital Signs (Past 12 Hours) Vital Signs Temp Pulse Pulse Pulse Resp BP Pulse Ox 01/17/20 19:40 64 14 96 01/17/20 19:31 36.6 C 64 20 116/55 L 96 01/17/20 16:00 64 01/17/20 15:29 36.7 C 59 L 13 113/50 L 95 01/17/20 15:13 63 16 97 Laboratory Results Laboratory Results - last 24 hr 01/16/20 01/17/20 01/17/20 20:46 00:29 04:00 WBC RBC Hgb Hct MCV MCH MCHC RDW Std Deviation RDW Coeff of Mehnaz Plt Count MPV PT INR Sodium Potassium Chloride Carbon Dioxide Anion Gap BUN Creatinine Est Cr Clr Drug Dosing Est GFR ( Amer) Est GFR (Non-Af Amer) BUN/Creatinine Ratio Glucose POC Glucose 91 117 H 104 H Calcium 01/17/20 01/17/20 01/17/20 06:09 06:09 07:37 WBC 7.03 RBC 2.97 L Hgb 7.9 L Hct 25.7 L MCV 86.5 MCH 26.6 MCHC 30.7 L RDW Std Deviation 56.3 H RDW Coeff of Mehnaz 18.1 H Plt Count 439 H MPV 8.8 PT 41.3 H INR 4.2 H Sodium 137 Potassium 3.6 Chloride 103 Carbon Dioxide 30 Anion Gap 4.0 BUN 37 H Creatinine 1.75 H D Est Cr Clr Drug Dosing 46.1 Est GFR ( Amer) 34.8 Est GFR (Non-Af Amer) 30.0 BUN/Creatinine Ratio 21.0 H Glucose 87 POC Glucose Calcium 8.6 01/17/20 01/17/20 01/17/20 07:43 11:13 16:16 WBC RBC Hgb Hct MCV MCH MCHC RDW Std Deviation RDW Coeff of Mehnaz Plt Count MPV PT INR Sodium Potassium Chloride Carbon Dioxide Anion Gap BUN Creatinine Est Cr Clr Drug Dosing Est GFR ( Amer) Est GFR (Non-Af Amer) BUN/Creatinine Ratio Glucose POC Glucose 111 H 136 H 122 H Calcium 01/17/20 20:34 WBC RBC Hgb Hct MCV MCH MCHC RDW Std Deviation RDW Coeff of Mehnaz Plt Count MPV PT INR Sodium Potassium Chloride Carbon Dioxide Anion Gap BUN Creatinine Est Cr Clr Drug Dosing Est GFR ( Amer) Est GFR (Non-Af Amer) BUN/Creatinine Ratio Glucose POC Glucose 164 H Calcium PG Care Time/CCT Total # of Minutes Spent Total Time Spent with Patient: Total time spent is greater than 50% in coordination of care (as documented) at patient's floor/unit and/or counseling patient: Coding Level of Care Code 34993 Subseq Hosp Care Lvl 3 Diagnoses Acute on chronic respiratory failure with hypoxia and hypercapnia J96.21; J96.22 Sepsis A41.9 Sepsis acute organ dysfunction status: unspecified Sepsis type: sepsis due to unspecified organism Septic shock A41.9; R65.21 Influenza A J10.1 Acute renal failure (ARF) N17.9 Acute renal failure type: unspecified Wound, open, hip or thigh Pneumonia involving right lung J18.9 Stage II pressure ulcer of buttock L89.302 Chronic anticoagulation Z79.01 DM type 2 (diabetes mellitus, type 2) E11.9; Z79.4 Diabetes mellitus complication status: without complication Diabetes mellitus detention insulin use: with detention use Paroxysmal atrial fibrillation I48.0 Anemia D64.89 Anemia type: other cause Other causes of anemia: other cause, not classified Hypothyroid E03.9 Hypothyroidism type: unspecified Morbid obesity with body mass index of 50 or higher E66.01 Hypertension I10 Hypertension type: essential hypertension Sleep apnea G47.33 Sleep apnea type: obstructive Hyponatremia E87.1 Left knee pain M25.562 Chronicity: acute DVT prophylaxis Z29.9 (1) Acute renal failure (ARF) Acute renal failure type: unspecified Qualified Code(s): N17.9 - Acute kidney failure, unspecified (2) DM type 2 (diabetes mellitus, type 2) Diabetes mellitus complication status: without complication Diabetes mellitus tank terminal gauger insulin use: with detention use Qualified Code(s): E11.9 - Type 2 diabetes mellitus without complications; Z79.4 - termite helper (current) use of insulin (3) Anemia Anemia type: other cause Other causes of anemia: other cause, not classified Qualified Code(s): D64.89 - Other specified anemias (4) Hypothyroid Hypothyroidism type: unspecified Qualified Code(s): E03.9 - Hypothyroidism, unspecified (5) Hypertension Hypertension type: essential hypertension Qualified Code(s): I10 - Essential (primary) hypertension (6) Sleep apnea Sleep apnea type: obstructive Qualified Code(s): G47.33 - Obstructive sleep apnea (adult) (pediatric) (7) Left knee pain Chronicity: acute Qualified Code(s): M25.562 - Pain in left knee (8) Sepsis Sepsis acute organ dysfunction status: unspecified Sepsis type: sepsis due to unspecified organism Qualified Code(s): A41.9 - Sepsis, unspecified organism
[2020-01-17] MEDS: FLUTICASONE PROPIONATE NA SPR 16 GM BTL SCH (20:44)
[2020-01-17] MEDS: ATORVASTATIN 40 MG TAB NG SCH (20:46)
[2020-01-18] MEDS: LEVOTHYROXINE SODIUM 125 MCG TABLET PO SCH (04:33)
[2020-01-18] MEDS: CLOTRIMAZOLE 1% CR 15 GM TUBE TOP SCH ×3 (04:34→21:16)
[2020-01-18] MEDS: metroNIDAZOLE 500 MG/100 ML BAG IV SCH ×2 (05:49→14:25)
[2020-01-18 06:47] LABS: Hematocrit (blood only) 24.6 % (37-47); Hemoglobin 7.6 g/dL (12.0-16.0); Mean Corpuscular Hemoglobin 26.4 pg (25-34); Mean Corpuscular Hgb Conc 30.9 g/dL (32-36); Mean Corpuscular Volume 85.4 fL (80-100); Mean Platelet Volume 8.3 fL (7.4-10.4); Platelet Count 412 K/uL (130-400); RDW Coefficient of Variation 17.9 % (11.5-14.5); RDW Standard Deviation 55.2 fL (36.4-46.3); Red Blood Count 2.88 M/uL (4.2-5.4); White Blood Count 6.28 K/uL (4.8-10.8)
[2020-01-18 06:56] LABS: INR 3.5 (0.9-1.1); Prothrombin Time 34.2 Seconds (9.0-12.0)
[2020-01-18] MEDS: ALBUT/IPRATROP 3MG/0.5MG NEB 3 ML VIAL NEB SCH ×4 (06:58→19:14)
[2020-01-18] MEDS: BUDESONIDE 0.5 MG/2 ML VIAL (PULMICORT) NEB SCH ×2 (06:58→19:16)
[2020-01-18 07:27] LABS: BUN Creatinine Ratio 22.7 (10-20); Calcium 8.3 mg/dl (8.5-10.1); Creatinine Clr Calc Pharmacy 57.2 ml/min; Est GFR (African American) 45.2; Potassium 3.7 mmol/L (3.5-5.1)
[2020-01-18 07:34] LABS: Ferritin 114.2 ng/ml (8-388)
[2020-01-18] MEDS: INSULIN ASPART 100 UNITS/ML 3 ML PEN SC SCH ×4 (08:39→21:17)
[2020-01-18] MEDS: INSULIN GLARGINE SOLOSTAR 100 UNITS/ML 3 ML PEN SC SCH (08:40)
[2020-01-18] MEDS: MONTELUKAST SODIUM 10 MG TABLET NG SCH (08:40)
[2020-01-18] MEDS: FAMOTIDINE 20 MG TAB PO SCH (08:41)
[2020-01-18] MEDS: FERROUS SULFATE 325 MG TAB PO SCH ×2 (08:41→16:31)
[2020-01-18] MEDS: LACTOBACILLUS ACIDOPHILUS (FLORANEX) TAB PO SCH (08:41)
[2020-01-18] MEDS: DOCUSATE SODIUM/SENNA 50/8.6MG TAB PO SCH ×2 (08:42→21:33)
[2020-01-18] MEDS: ASPIRIN 81 MG CHEW NG SCH (08:42)
[2020-01-18] MEDS: DICLOFENAC SOD 1% GEL 100 GM TUBE EXT SCH ×4 (08:42→21:16)
[2020-01-18] MEDS: DOXYCYCLINE HYCLATE 100 MG in DEXTROSE 5% 100 ML IV SCH (08:47)
--- NOTE | 2020-01-18 10:35 | Pharmacy Report ---
Pharmacy Glycemic Short Note 2 - Date of Service January 18, 2020 - Glycemic Short BSG Results (Last 24 hours): 01/17/20 01/17/20 01/17/20 11:13 16:16 20:34 Glucose POC Glucose 136 H 122 H 164 H 01/18/20 01/18/20 06:28 07:14 Glucose 116 H POC Glucose 124 H OUTPATIENT ANTIDIABETIC REGIMEN: * Metformin 500mg PO BID * Sitagliptin 50mg daily * Humalog per sliding scale * A1c = 7.4% ASSESSMENT/Plan: 01/17 * No changes 01/16 * No changes 01/15 * Patient's BSGs have been acceptable 142-174 yesterday, patient with trickle feed, to be held for possible extubation later today * Will need to begin covering tube feeds if extubation unsuccessful/start to titrate up * Antibiotics de-escalated to flagyl + doxy * Will continue current insulin parameters for now 01/14 * Tube feeds started yesterday afternoon, 15cc/hr. trickle feeds have minimally effected BSGs at this point. No need to cover carbs. Just correct hyperglycemia at this point. Dw nursing, if trickle feeds are to be escalated we can start to cover carbs. Contine lantus 15u QAM. RECOMMEND: * Holding outpatient oral diabetes medications (metformin, sitagliptin) * Basal insulin with LANTUS 15 units SQ daily * Correctional Insulin with NOVOLOG / REGULAR per scale ACHS or Q6hrs while NPO * Goal Range: Low 110 mg/dL - High 140 mg/dL * Correction Factor: 20 mg/dL/unit * Nutritional / Prandial insulin per carb ratio of 1 unit per 8 grams CHO consumed Pharmacy will continue to provide recommendations in EMR while patient admitted to 1E/2E. Physicians may request pharmacy to continue to follow patient when transferred out of the ICU and/or consult pharmacy to write glycemic control orders Thank you. PLAN FOR DISCHARGE: * to be determined.
[2020-01-18] MEDS: FUROSEMIDE 40 MG TAB PO SCH ×2 (10:58→16:31)
--- NOTE | 2020-01-18 15:34 | Procedure Note ---
Procedure Note Date of Service January 18, 2020 Right IJ Dialysis Catheter removal Time: 14:00 Indication: Catheter no longer being used. Remove to reduce risk of infection Risks: Patient anticoagulated for chronic atrial fibrillation. INR 3.6 Narrative: Risk vs benefit of removal of catheter today discussed with the patient. She understands that she has higher risk of bleeding secondary to elevated INR. She also understands that risk of infection of the catheter increases the longer the catheter is in place. Knowing the risk of increased bleeding, the patient elected to have the line removed. A time out was performed. With clean technique, the dressing was removed and the surrounding area was cleansed with a sterile saline wipe. Two sutures securing the line were securely in place. They were easily removed and examined to be sure that all suture material was removed. Due to increased INR, Surgicell was placed over the inc ision at the entry point of the catheter. With the patient in a flat supine position, the line was easily removed with slight pressure over the area with a 4x4. Pressure was applied for a total of twenty minutes and the dressing was secured in placed with Medipore tape. The patient tolerated the procedure well and had no change in hemodynamics and no desaturations. There were no complications. There was no blood loss. Coding
--- NOTE | 2020-01-18 20:01 | Hospitalist Progress Note ---
Date of Service January 18, 2020 Assessment & Plan (1) Acute on chronic respiratory failure with hypoxia and hypercapnia: acute component 2nd to influenza A infection, ?right-sided superinfection [pneumonia], volume overload in setting of ARF/DIANNE. s/p intubation 01/12. s/p successful extubation 01/15. cont NC during the day and BIPAP at HS. clinically improving each day. resume lasix 40mg PO BID today since renal function has improved close to baseline. (2) Sepsis: PRESENT ON ADMISSION - 2nd to fluA infection +/- pneumonia. progressed after admission to septic shock. sepsis now resolved. (3) Septic shock: 2nd to flu, possible pneumonia, etc required pressors in ICU resolved (4) Influenza A: resolved completed 5+ days of tamiflu (5) Acute renal failure (ARF): 2nd to sepsis-associated ATN. resolved required UF on 01/14/20 by nephrology only. Cr now 1.4 and urine output is excellent resume lasix 40 BID remove temporary dialysis catheter today - ICU staff asked to do this appreciate nephrology assistance. (6) Wound, open, hip or thigh: chronic, right hip - 2nd to MRSA and bacteroides based on most recent culture results. IV doxy and IV flagyl currently being used. Change these to PO. Rx for at least 10 days of IV/PO abx. has seen orthopedics and wound care. wound goes back 15+ years according to patient. had right hip replacement 17 years ago and developed post-op wound that resolves, then returns, and so forth. (7) Pneumonia involving right lung: question of. had received numerous antibiotics since admission - cefepime, zosyn, doxy. remains on doxy with flagyl. seems to be improving with such finish abx course (8) Stage II pressure ulcer of buttock: wound care team recs appreciated frequent turning etc (9) Chronic anticoagulation: INR 3.5 repeat INR again in am likely resume warfarin tomorrow (10) DM type 2 (diabetes mellitus, type 2): pharmacy glycemic team managing appreciate input control acceptable at this time can resume gabapentin now that ARF is resolved (11) Paroxysmal atrial fibrillation: noted again no a.fib overnight once again HRs stable resume amiodarone in am hold BB (12) Anemia: H/H continue to trend lower albeit very slowly b12/folate in 11/2019 were wnl ferritin was <50 in November increased ferrous sulfate to BID dosing If Hb drops to 7 or less then Tx PRBCs check fecal occult blood (13) Hypothyroid: TSH 4.5 in 12/2019 cont levothyroxine 125mcg daily (14) Morbid obesity with body mass index of 50 or higher: BMI 65 (15) Hypertension: controlled (16) Sleep apnea: BIPAP HS (17) Hyponatremia: 2nd to acute renal failure Na now normal (18) Left knee pain: x-rays with severe OA improved with voltaren gel qid (19) DVT prophylaxis: on coumadin with supratherapeutic INR at this time see above patient does not ambulate at SNF; has not done so in 12+ months brother updated by phone 01/16 appreciate palliative care consult progressing slowly wean o2 as tolerated Admission and Anticipated Discharge Date Admission Date: January 13, 2020 Subjective patient "feeling better" today. mild cough with mild sputum production. no dyspnea at rest. no abdominal pain. tele overnight wnl. asks to have right IJ catheter removed. eating well. Review of Systems Constitutional: no fever and no chills Respiratory: + cough, + chest congestion and + wheezing Cardiovascular: no chest pain and no dyspnea at rest Gastrointestinal: no abdominal pain, no nausea and no vomiting Physical Exam Constitutional: + morbidly obese; no acute distress and no altered mental status ENMT: external ear and nose normal, oropharynx normal Respiratory: no respiratory distress Auscultation: + diminished lung sounds (bases), + crackles and + wheezes (faint end-exp wheeze b/l ) Cardiovascular: Rate/Rhythm: regular rate and regular rhythm Heart Sounds: normal S1 and normal S2; no murmur Vessels: posterior tibial pulses present and dorsalis pedis pulses present; no JVD Extremities: normal capillary refill; no edema Gastrointestinal (Abdomen): normal bowel sounds, soft, nontender, no hepatosplenomegaly Percussion/Palpation: + hernia (umbilical - reducible ) Skin: right IJ CVC clean Psychiatric: Orientation: alert, oriented to person, oriented to place and ivania ented to time Results & Data ([facility]) Vital Signs (Past 12 Hours) Vital Signs Temp Pulse Pulse Pulse Resp BP Pulse Ox 01/18/20 19:47 36.7 C 63 13 130/60 93 01/18/20 19:14 68 16 96 01/18/20 16:26 36.9 C 64 25 H 124/53 L 92 01/18/20 15:34 60 16 97 01/18/20 15:00 56 L 01/18/20 11:27 36.7 C 64 16 129/70 96 01/18/20 11:25 63 18 97 Laboratory Results Laboratory Results - last 24 hr 01/17/20 01/18/20 01/18/20 20:34 06:28 06:28 WBC 6.28 RBC 2.88 L Hgb 7.6 L Hct 24.6 L MCV 85.4 MCH 26.4 MCHC 30.9 L RDW Std Deviation 55.2 H RDW Coeff of Mehnaz 17.9 H Plt Count 412 H MPV 8.3 PT 34.2 H INR 3.5 H Sodium Potassium Chloride Carbon Dioxide Anion Gap BUN Creatinine Est Cr Clr Drug Dosing Est GFR ( Amer) Est GFR (Non-Af Amer) BUN/Creatinine Ratio Glucose POC Glucose 164 H Calcium Ferritin 01/18/20 01/18/20 01/18/20 06:28 07:14 11:28 WBC RBC Hgb Hct MCV MCH MCHC RDW Std Deviation RDW Coeff of Mehnaz Plt Count MPV PT INR Sodium 138 Potassium 3.7 Chloride 105 Carbon Dioxide 28 Anion Gap 5.0 BUN 32 H Creatinine 1.41 H D Est Cr Clr Drug Dosing 57.2 Est GFR ( Amer) 45.2 Est GFR (Non-Af Amer) 39.0 BUN/Creatinine Ratio 22.7 H Glucose 116 H POC Glucose 124 H 160 H Calcium 8.3 L Ferritin 114.2 01/18/20 16:40 WBC RBC Hgb Hct MCV MCH MCHC RDW Std Deviation RDW Coeff of Mehnaz Plt Count MPV PT INR Sodium Potassium Chloride Carbon Dioxide Anion Gap BUN Creatinine Est Cr Clr Drug Dosing Est GFR ( Amer) Est GFR (Non-Af Amer) BUN/Creatinine Ratio Glucose POC Glucose 137 H Calcium Ferritin PG Care Time/CCT Total # of Minutes Spent Total Time Spent with Patient: Total time spent is greater than 50% in coordination of care (as documented) at patient's floor/unit and/or counseling patient: Coding Level of Care Code 61674 Subseq Hosp Care Lvl 3 Diagnoses Acute on chronic respiratory failure with hypoxia and hypercapnia J96.21; J96.22 Sepsis A41.9 Sepsis acute organ dysfunction status: unspecified Sepsis type: sepsis due to unspecified organism Septic shock A41.9; R65.21 Influenza A J10.1 Acute renal failure (ARF) N17.9 Acute renal failure type: unspecified Wound, open, hip or thigh Pneumonia involving right lung J18.9 Stage II pressure ulcer of buttock L89.302 Chronic anticoagulation Z79.01 DM type 2 (diabetes mellitus, type 2) E11.9; Z79.4 Diabetes mellitus complication status: without complication Diabetes mellitus superintendent container terminal insulin use: with superintendent container terminal use Paroxysmal atrial fibrillation I48.0 Anemia D64.89 Anemia type: other cause Other causes of anemia: other cause, not classified Hypothyroid E03.9 Hypothyroidism type: unspecified Morbid obesity with body mass index of 50 or higher E66.01 Hypertension I10 Hypertension type: essential hypertension Sleep apnea G47.33 Sleep apnea type: obstructive Hyponatremia E87.1 Left knee pain M25.562 Chronicity: acute DVT prophylaxis Z29.9 (1) Sepsis Sepsis acute organ dysfunction status: unspecified Sepsis type: sepsis due to unspecified organism Qualified Code(s): A41.9 - Sepsis, unspecified organism (2) Acute renal failure (ARF) Acute renal failure type: unspecified Qualified Code(s): N17.9 - Acute kidney failure, unspecified (3) DM type 2 (diabetes mellitus, type 2) Diabetes mellitus complication status: without complication Diabetes mellitus care home insulin use: with care home use Qualified Code(s): E11.9 - Type 2 diabetes mellitus without complications; Z79.4 - rodent exterminator (current) use of insulin (4) Anemia Anemia type: other cause Other causes of anemia: other cause, not classified Qualified Code(s): D64.89 - Other specified anemias (5) Hypothyroid Hypothyroidism type: unspecified Qualified Code(s): E03.9 - Hypothyroidism, unspecified (6) Hypertension Hypertension type: essential hypertension Qualified Code(s): I10 - Essential (primary) hypertension (7) Sleep apnea Sleep apnea type: obstructive Qualified Code(s): G47.33 - Obstructive sleep apnea (adult) (pediatric) (8) Left knee pain Chronicity: acute Qualified Code(s): M25.562 - Pain in left knee
[2020-01-18] MEDS: DOXYCYCLINE HYCLATE 100 MG CAP PO SCH (21:15)
[2020-01-18] MEDS: GABAPENTIN 300 MG CAP PO SCH (21:15)
[2020-01-18] MEDS: metroNIDAZOLE 500 MG TAB PO SCH (21:16)
[2020-01-18] MEDS: FLUTICASONE PROPIONATE NA SPR 16 GM BTL SCH (21:16)
[2020-01-18] MEDS: ATORVASTATIN 40 MG TAB NG SCH (21:18)
[2020-01-19] MEDS: CLOTRIMAZOLE 1% CR 15 GM TUBE TOP SCH ×3 (05:53→21:25)
[2020-01-19 06:22] LABS: Hematocrit (blood only) 26.3 % (37-47); Hemoglobin 8.1 g/dL (12.0-16.0)
[2020-01-19 06:38] LABS: INR 2.9 (0.9-1.1); Prothrombin Time 29.2 Seconds (9.0-12.0)
[2020-01-19 06:51] LABS: BUN Creatinine Ratio 21.9 (10-20); Calcium 8.6 mg/dl (8.5-10.1); Creatinine Clr Calc Pharmacy 64.4 ml/min; Est GFR (African American) 52.3; Est GFR (Non-African American) 45.1; Potassium 3.5 mmol/L (3.5-5.1)
[2020-01-19] MEDS: ALBUT/IPRATROP 3MG/0.5MG NEB 3 ML VIAL NEB SCH ×4 (07:46→19:52)
[2020-01-19] MEDS: BUDESONIDE 0.5 MG/2 ML VIAL (PULMICORT) NEB SCH (07:46)
[2020-01-19] MEDS: LEVOTHYROXINE SODIUM 125 MCG TABLET PO SCH (08:51)
[2020-01-19] MEDS: FERROUS SULFATE 325 MG TAB PO SCH ×2 (08:51→18:04)
[2020-01-19] MEDS: LACTOBACILLUS ACIDOPHILUS (FLORANEX) TAB PO SCH (08:51)
[2020-01-19] MEDS: MONTELUKAST SODIUM 10 MG TABLET NG SCH (08:51)
[2020-01-19] MEDS: AMIODARONE 200 MG TAB PO SCH (08:51)
[2020-01-19] MEDS: GABAPENTIN 300 MG CAP PO SCH ×3 (08:51→20:12)
[2020-01-19] MEDS: FAMOTIDINE 20 MG TAB PO SCH (08:51)
[2020-01-19] MEDS: metroNIDAZOLE 500 MG TAB PO SCH ×3 (08:51→20:12)
[2020-01-19] MEDS: FUROSEMIDE 40 MG TAB PO SCH ×2 (08:51→18:04)
[2020-01-19] MEDS: DOXYCYCLINE HYCLATE 100 MG CAP PO SCH ×2 (08:52→21:25)
[2020-01-19] MEDS: INSULIN GLARGINE SOLOSTAR 100 UNITS/ML 3 ML PEN SC SCH (08:52)
[2020-01-19] MEDS: DOCUSATE SODIUM/SENNA 50/8.6MG TAB PO SCH ×2 (08:52→20:11)
[2020-01-19] MEDS: DICLOFENAC SOD 1% GEL 100 GM TUBE EXT SCH ×4 (08:52→20:12)
[2020-01-19] MEDS: INSULIN ASPART 100 UNITS/ML 3 ML PEN SC SCH ×4 (08:53→21:25)
[2020-01-19] MEDS: ASPIRIN 81 MG CHEW NG SCH (09:04)
--- NOTE | 2020-01-19 11:10 | Hospitalist Progress Note ---
Date of Service January 19, 2020 Assessment & Plan (1) Acute on chronic respiratory failure with hypoxia and hypercapnia: acute component 2nd to influenza A infection, ?right-sided superinfection [pneumonia], volume overload in setting of ARF/DIANNE - resolved; off O2. s/p intubation 01/12. s/p successful extubation 01/15. cont BIPAP at HS. clinically improving each day. resumed lasix 40mg PO BID. (2) Sepsis: PRESENT ON ADMISSION - 2nd to fluA infection +/- pneumonia. progressed after admission to septic shock. sepsis now resolved. (3) Septic shock: 2nd to flu, possible pneumonia, etc required pressors in ICU resolved (4) Influenza A: resolved completed 5+ days of tamiflu (5) Acute renal failure (ARF): 2nd to sepsis-associated ATN. resolved required UF on 01/14/20 by nephrology only. Cr now 1.2 and urine output is excellent cont lasix 40 BID removed temporary dialysis catheter yesterday w/o incident appreciate nephrology assistance. (6) Wound, open, hip or thigh: chronic, right hip - 2nd to MRSA and bacteroides based on most recent culture results. IV doxy and IV flagyl currently being used. Changed these to PO. Rx for at least 10 days of IV/PO abx. has seen orthopedics and wound care. wound goes back 15+ years according to patient. had right hip replacement 17 years ago and developed post-op wound that resolves, then returns, and so forth. (7) Pneumonia involving right lung: question of. had received numerous antibiotics since admission - cefepime, zosyn, doxy. remains on doxy with flagyl. clinically resolved finish abx course (8) Stage II pressure ulcer of buttock: wound care team recs appreciated frequent turning etc (9) Chronic anticoagulation: INR now <3 resume coumadin although will give only 2.5mg today due to concern for potentiation of INR from abx INR in am (10) DM type 2 (diabetes mellitus, type 2): pharmacy glycemic team managing appreciate input control acceptable at this time (11) Paroxysmal atrial fibrillation: noted again no a.fib overnight once again HRs stable resume amiodarone today cont to hold BB (12) Anemia: H/H still acceptable today b12/folate in 11/2019 were wnl ferritin was <50 in November increased ferrous sulfate to BID dosing (13) Hypothyroid: TSH 4.5 in 12/2019 cont levothyroxine 125mcg daily (14) Morbid obesity with body mass index of 50 or higher: BMI 65 (15) Hypertension: controlled (16) Sleep apnea: BIPAP HS (17) Hyponatremia: 2nd to acute renal failure Na now normal (18) Left knee pain: x-rays with severe OA improved with voltaren gel qid no complaints in several days (19) DVT prophylaxis: coumadin patient does not ambulate at SNF; has not done so in 12+ months brother updated by phone 01/16 appreciate palliative care consult d/c tele move to med/surg Admission and Anticipated Discharge Date Admission Date: January 13, 2020 Anticipated date of discharge: 01/20/20 Subjective feeling "really good" with no complaints today I shut the pt's O2 off during the visit - O2 sats remained 92% or more for 10 minutes tele overnight wnl Review of Systems Constitutional: no fever and no chills Respiratory: no cough, no chest congestion and no wheezing Cardiovascular: no chest pain Physical Exam Constitutional: + morbidly obese; no acute distress and no altered mental status ENMT: external ear and nose normal, oropharynx normal Respiratory: no respiratory distress Auscultation: + diminished lung sounds (bases) and + crackles (minimal); no wheezes Cardiovascular: Rate/Rhythm: regular rate and regular rhythm Heart Sounds: normal S1 and normal S2; no murmur Vessels: posterior tibial pulses present and dorsalis pedis pulses present; no JVD Extremities: normal capillary refill; no edema Gastrointestinal (Abdomen): normal bowel sounds, soft, nontender, no hepatosplenomegaly Percussion/Palpation: + hernia (umbilical - reducible ) Skin: wound, lateral right thigh - no significant drainage; dressing intact; no cellulitis Psychiatric: Orientation: alert, oriented to person, oriented to place and oriented to time Results & Data ([facility]) Vital Signs (Past 12 Hours) Vital Signs Temp Pulse Pulse Resp BP Pulse Ox 01/19/20 08:13 36.7 C 67 19 156/90 H 94 01/19/20 07:54 63 18 94 01/19/20 04:34 36.8 C 65 20 145/52 H 91 Laboratory Results Laboratory Results - last 24 hr 01/18/20 01/18/20 01/18/20 11:28 16:40 20:15 Hgb Hct PT INR Sodium Potassium Chloride Carbon Dioxide Anion Gap BUN Creatinine Est Cr Clr Drug Dosing Est GFR ( Amer) Est GFR (Non-Af Amer) BUN/Creatinine Ratio Glucose POC Glucose 160 H 137 H 151 H Calcium 01/19/20 01/19/20 01/19/20 05:45 05:45 05:45 Hgb 8.1 L Hct 26.3 L PT 29.2 H INR 2.9 H Sodium 140 Potassium 3.5 Chloride 106 Carbon Dioxide 30 Anion Gap 4.0 BUN 27 H Creatinine 1.25 H Est Cr Clr Drug Dosing 64.4 Est GFR ( Amer) 52.3 Est GFR (Non-Af Amer) 45.1 BUN/Creatinine Ratio 21.9 H Glucose 101 H POC Glucose Calcium 8.6 01/19/20 08:43 Hgb Hct PT INR Sodium Potassium Chloride Carbon Dioxide Anion Gap BUN Creatinine Est Cr Clr Drug Dosing Est GFR ( Amer) Est GFR (Non-Af Amer) BUN/Creatinine Ratio Glucose POC Glucose 132 H Calcium PG Care Time/CCT Total # of Minutes Spent Total Time Spent with Patient: Total time spent is greater than 50% in coordination of care (as documented) at patient's floor/unit and/or counseling patient: Coding Level of Care Code 65130 Subseq Hosp Care Lvl 3 Diagnoses Acute on chronic respiratory failure with hypoxia and hypercapnia J96.21; J96.22 Sepsis A41.9 Sepsis acute organ dysfunction status: unspecified Sepsis type: sepsis due to unspecified organism Septic shock A41.9; R65.21 Influenza A J10.1 Acute renal failure (ARF) N17.9 Acute renal failure type: unspecified Wound, open, hip or thigh Pneumonia involving right lung J18.9 Stage II pressure ulcer of buttock L89.302 Chronic anticoagulation Z79.01 DM type 2 (diabetes mellitus, type 2) E11.9; Z79.4 Diabetes mellitus complication status: without complication 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: with terminal make up operator use Paroxysmal atrial fibrillation I48.0 Anemia D64.89 Anemia type: other cause Other causes of anemia: other cause, not classified Hypothyroid E03.9 Hypothyroidism type: unspecified Morbid obesity with body mass index of 50 or higher E66.01 Hypertension I10 Hypertension type: essential hypertension Sleep apnea G47.33 Sleep apnea type: obstructive Hyponatremia E87.1 Left knee pain M25.562 Chronicity: acute DVT prophylaxis Z29.9 (1) Sleep apnea Sleep apnea type: obstructive Qualified Code(s): G47.33 - Obstructive sleep apnea (adult) (pediatric) (2) Acute renal failure (ARF) Acute renal failure type: unspecified Qualified Code(s): N17.9 - Acute kidney failure, unspecified (3) DM type 2 (diabetes mellitus, type 2) Diabetes mellitus complication status: without complication 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: with terminal make up operator use Qualified Code(s): E11.9 - Type 2 diabetes mellitus without complications; Z79.4 - senior living (current) use of insulin (4) Anemia Anemia type: other cause Other causes of anemia: other cause, not classified Qualified Code(s): D64.89 - Other specified anemias (5) Hypothyroid Hypothyroidism type: unspecified Qualified Code(s): E03.9 - Hypothyroidism, unspecified (6) Sepsis Sepsis acute organ dysfunction status: unspecified Sepsis type: sepsis due to unspecified organism Qualified Code(s): A41.9 - Sepsis, unspecified organism (7) Left knee pain Chronicity: acute Qualified Code(s): M25.562 - Pain in left knee (8) Hypertension Hypertension type: essential hypertension Qualified Code(s): I10 - Essential (primary) hypertension
[2020-01-19] MEDS ORDERED: WARFARIN SOD 2.5 MG TAB PO SCH (16:00)
[2020-01-19] MEDS: FLUTICASONE PROPIONATE NA SPR 16 GM BTL SCH (20:12)
[2020-01-19] MEDS: ATORVASTATIN 40 MG TAB NG SCH (20:12)
[2020-01-20] MEDS: LEVOTHYROXINE SODIUM 125 MCG TABLET PO SCH (06:17)
[2020-01-20] MEDS: CLOTRIMAZOLE 1% CR 15 GM TUBE TOP SCH ×2 (06:18→13:29)
[2020-01-20 06:21] LABS: INR 2.4 (0.9-1.1); Prothrombin Time 24.5 Seconds (9.0-12.0)
[2020-01-20 06:45] LABS: BUN Creatinine Ratio 21.6 (10-20); Calcium 8.7 mg/dl (8.5-10.1); Creatinine Clr Calc Pharmacy 64.4 ml/min; Est GFR (African American) 52.3; Est GFR (Non-African American) 45.1; Potassium 3.6 mmol/L (3.5-5.1)
[2020-01-20] MEDS: ALBUT/IPRATROP 3MG/0.5MG NEB 3 ML VIAL NEB SCH ×2 (07:39→11:03)
[2020-01-20] MEDS: LACTOBACILLUS ACIDOPHILUS (FLORANEX) TAB PO SCH (09:15)
[2020-01-20] MEDS: FUROSEMIDE 40 MG TAB PO SCH (09:15)
[2020-01-20] MEDS: FERROUS SULFATE 325 MG TAB PO SCH (09:15)
[2020-01-20] MEDS: metroNIDAZOLE 500 MG TAB PO SCH ×2 (09:15→12:59)
[2020-01-20] MEDS: GABAPENTIN 300 MG CAP PO SCH ×2 (09:16→12:59)
[2020-01-20] MEDS: DICLOFENAC SOD 1% GEL 100 GM TUBE EXT SCH ×2 (09:16→13:29)
[2020-01-20] MEDS: DOCUSATE SODIUM/SENNA 50/8.6MG TAB PO SCH (09:16)
[2020-01-20] MEDS: ASPIRIN 81 MG CHEW NG SCH (09:16)
[2020-01-20] MEDS: MONTELUKAST SODIUM 10 MG TABLET NG SCH (09:16)
[2020-01-20] MEDS: AMIODARONE 200 MG TAB PO SCH (09:16)
[2020-01-20] MEDS: FAMOTIDINE 20 MG TAB PO SCH (09:16)
[2020-01-20] MEDS: DOXYCYCLINE HYCLATE 100 MG CAP PO SCH (09:21)
[2020-01-20] MEDS: INSULIN ASPART 100 UNITS/ML 3 ML PEN SC SCH ×2 (09:30→13:05)
[2020-01-20] MEDS: INSULIN GLARGINE SOLOSTAR 100 UNITS/ML 3 ML PEN SC SCH (09:35)
--- NOTE | 2020-01-20 10:06 | Pharmacy Report ---
Pharmacy Glycemic Short Note 2 - Date of Service January 20, 2020 - Glycemic Short BSG Results (Last 24 hours): 01/19/20 01/19/20 01/19/20 11:13 17:17 20:37 Glucose POC Glucose 162 H 157 H 171 H 01/20/20 01/20/20 05:43 08:12 Glucose 115 H POC Glucose 129 H OUTPATIENT ANTIDIABETIC REGIMEN: * Metformin 500mg PO BID * Sitagliptin 50mg daily * Humalog per sliding scale * A1c = 7.4% ASSESSMENT/Plan: 01/19 * Patient is currently receiving an average of 40 units of insulin per day * 15 units of basal insulin * 26 units of prandial/correctional insulin * BSGs ranging 115-171 over the past 24hrs * Risk factors for insulin resistance are CONSTANT over the past 24hrs * Anticipating insulin regimen will need INCREASED for the next 24hrs d/t : * Post-prandial BSGs are elevated/BSGs rise throughout the day therefore Tighten CR 01/17 * No changes 01/16 * No changes 01/15 * Patient's BSGs have been acceptable 142-174 yesterday, patient with trickle feed, to be held for possible extubation later today * Will need to begin covering tube feeds if extubation unsuccessful/start to titrate up * Antibiotics de-escalated to flagyl + doxy * Will continue current insulin parameters for now 01/14 * Tube feeds started yesterday afternoon, 15cc/hr. trickle feeds have minimally effected BSGs at this point. No need to cover carbs. Just correct hyperglycemia at this point. Dw nursing, if trickle feeds are to be escalated we can start to cover carbs. Contine lantus 15u QAM. RECOMMEND: * Holding outpatient oral diabetes medications (metformin, sitagliptin) * Basal insulin - no change * LANTUS 15 units SQ daily * Bolus insulin - tighten CR * NOVOLOG per scale ACHS or Q6hrs while NPO * Goal Range: Low 110 mg/dL - High 140 mg/dL * Correction Factor: 20 mg/dL/unit * Nutritional / Prandial insulin per carb ratio of 1 unit per 7 grams CHO consumed PLAN FOR DISCHARGE: * A1c 7.4% on 01/13/20 * Goal A1c < 8% based on age/comorbidities * Resume outpatient regimen on discharge. SCr improving daily so metformin can likely be resumed as well.
--- NOTE | 2020-01-20 12:23 | Discharge Summary ---
Date of Service date of admission - January 13, 2020 date of discharge - January 20, 2020 Admission HPI Per Admitting Provider The patient is a 64-year-old female resident of [facility], with a past medical history including gram-negative septicemia, diabetes mellitus type 2, chronic anticoagulation with warfarin, anemia, chronic joint pain, hypothyroidism, respiratory failure with hypoxia and hypercapnia, paroxysmal A. fib/flutter, acid-fast bacteria present, multiple skin wounds being actively treated by the wound care center, hypertension, and sleep apnea. She reportedly was diagnosed with influenza A 2 days ago, was started on Tamiflu, and was noted today to have developed worsening shortness of breath a few hours prior to arrival. The patient is not able to contribute to her HPI and review of systems due to illness. Principal Diagnosis 1. influenza A infection 2. acute/chronic hypercarbic/hypoxic respiratory failure 3. septic shock 2nd to #1 Discharge Exam Constitutional + morbidly obese; no acute distress and no altered mental status ENMT external ear and nose normal, oropharynx normal Respiratory no respiratory distress Auscultation: + diminished lung sounds (bases) and + crackles (minimal); no wheezes Cardiovascular Rate/Rhythm: regular rate and regular rhythm Heart Sounds: normal S1 and normal S2; no murmur Vessels: posterior tibial pulses present and dorsalis pedis pulses present; no JVD Extremities: normal capillary refill; no edema Gastrointestinal (Abdomen) normal bowel sounds, soft, nontender, no hepatosplenomegaly Percussion/Palpation: + hernia (umbilical - reducible ) Musculoskeletal left knee - no effusion; no warmth Skin right lateral hip -- clean wound, pink bed, no drainage or odor; dressings intact Psychiatric Orientation: alert, oriented to person, oriented to place and oriented to time Discharge Data Allergies Allergy/AdvReac Type Severity Reaction Status Date / Time Iodinated Contrast Media Allergy Intermediate HIVES Verified 01/12/20 23:02 latex Allergy Unknown LOW LEVEL Verified 01/12/20 23:02 LATEX ALLERGY pineapple Allergy Unknown Unknown Verified 01/12/20 23:[address] HICKS Verified 01/12/20 23:02 ASKED THAT ALLERGY BE ADDED 07/31/08 Sulfa (Sulfonamide Allergy Unknown HIVES Verified 01/12/20 23:02 Antibiotics) vancomycin Allergy Unknown HIVES, GI Verified 01/12/20 23:02 UPSET Consultations 1. Nutrition 2. Dynamics Ax Developer 3. General Surgery 4. Orthopedic Surgery 5. Cardiology 6. Palliative Care 7. PT, OT Ordered Studies 1. CT head/brain - no acute abnormalities. 2. US point of care ultrasound 3. right IJ temporary dialysis catheter 4. intubation/mech ventilation Hospital Course (1) Septic shock: 2nd to flu and possible pneumonia. Required period of pressors in the ICU. Sepsis/septic shock resolved with antibiotics, pressors, and supportive care. (2) Acute on chronic respiratory failure with hypoxia and hypercapnia: Acute component 2nd to influenza A infection, ?right-sided superinfection [pneumonia], volume overload in setting of ARF/DIANNE. s/p intubation 01/12. s/p successful extubation 01/15. required use of NC O2 following extubation which was ultimately weaned off over time. cont BIPAP at HS. (3) Sepsis: PRESENT ON ADMISSION - 2nd to fluA infection +/- pneumonia. progressed after admission with ultimate development of septic shock. required pressors in the ICU. (4) Influenza A: completed 5+ days of tamiflu clinically resolved (5) Acute renal failure (ARF): 2nd to sepsis-associated ATN. resolved required temporary ultrafiltration on 01/14/20 by nephrology. fortunately did not require any other days of ultrafiltration. Cr now 1.25 at discharge with excellent urine output. lasix 40 BID was resumed once creatinine had returned to baseline. temporary dialysis catheter was removed once it was determined that no further sessions of dialysis would be needed. dialysis assistance was given by [facility]. (6) Wound, open, hip or thigh: chronic, right hip - 2nd to MRSA and bacteroides based on most recent culture results. IV doxy and IV flagyl were employed while here and these were changed to oral at discharge complete, in total, 10 days of IV/PO antibiotics. Right hip wound was inspected by orthopedics and ongoing wound care was advised; operative treatment not needed. wound goes back 15+ years according to patient. had right hip replacement 17 years ago and developed post-op wound that resolves, then returns, and so forth. (7) Pneumonia involving right lung: question of. had received numerous antibiotics since admission - cefepime, zosyn, doxy. then transitioned to doxy with flagyl. again respiratory failure resolved while hospitalized. (8) Stage II pressure ulcer of buttock: wound care team provided recommendations for this issue (9) Chronic anticoagulation: INR was supratherapeutic while hospitalized, and coumadin was held for much of her stay. Ultimately coumadin was resumed at 2.5mg daily. At discharge the following were advised - coumadin 2.5mg on 01/19 coumadin 2.5mg on 01/20 then coumadin 5mg on 01/21 and thereafter INR in 2-3 days post-d/c was recommended for stability. INR on day of discharge was 2.4. (10) DM type 2 (diabetes mellitus, type 2): pharmacy glycemic team managed her DM while hospitalized with very acceptable control. cont metformin, lantus and novolog as previous. (11) Paroxysmal atrial fibrillation: NO a.fib while hospitalized. continue amiodarone as previous. continue metoprolol. continue coumadin. (12) Anemia: Hb at discharge 8.1. b12/folate in 11/2019 were wnl ferritin was <50 in November as increased ferrous sulfate to BID dosing recommend CBC in 3-4 days post-d/c for stability the anemia is chronic in nature. (13) Hypothyroid: TSH 4.5 in 12/2019 cont levothyroxine 125mcg daily (14) Morbid obesity with body mass index of 50 or higher: BMI 65 (15) Hypertension: BP meds resumed once shock had resolved and BPs vivien. (16) Sleep apnea: BIPAP HS (17) Hyponatremia: 2nd to acute renal failure - resolved (18) Left knee pain: x-rays with severe OA improved with voltaren gel qid no evidence of inflammatory or infectious arthritis Total Time Total Time Spent Total Time Spent (In Minutes): 45 Total Time Includes: Examination of the Patient, Discharge Planning, Medication Reconciliation and Communication With Other Providers Discharge Plan Discharge Items Patient Disposition: [facility] Reason For Visit: ACUTE RENAL FAILURE Discharge Diagnosis: 1. sepsis due to influenza infection 2. acute renal failure due to sepsis - resolved 3. chronic right hip wound Activity: Resume your previous activity Non-emergency contact: Primary Care Provider Call non-emergency contact if: you have any medication questions and you have a fever Follow-up/Referrals: Briseida Killian [Primary Care Provider] - Diet: Carb Consistent or DM2 and Heart Healthy Fluids: 2000ml (8 cups) Addtl Attending Provider Instructions: 1. Check BSGs ac/hs 2. Check INR on 01/23/20; report results to medical record administrator 3. Check CBC, BMP on 01/23/20; report results to medical record administrator 4. continue dressing changes to right hip wound; please see wound care instructions from our wound care team; consider referral to [facility] in [place] for this chronic wound Pending Studies at Discharge: No Stand-Alone Forms: [facility] Skilled Items Patient informed of condition?: Yes DNR: No Discharge Level of Care: Skilled Communicable Disease: Yes (MRSA+) Discharge Prognosis: Stable Lines: None Urinary Catheter: No Medications and DC Order Prescriptions: New diclofenac sodium [Voltaren] 1 % Gel 4 g EXT QID Qty: 1 RF: 0 Lantus Solostar U-100 Insulin 100 unit/mL (3 mL) Insulin Pen 15 unit SC DAILY Qty: 1 RF: 2 Continued gabapentin 600 mg tablet 600 mg PO TID RF: 0 fluticasone propionate 50 mcg/actuation spray,suspension 2 spray Intranasal HS RF: 0 atorvastatin 40 mg tablet 40 mg PO HS RF: 0 aspirin 81 mg Tablet,Delayed Release (Dr/Ec) 81 mg PO DAILY RF: 0 magnesium oxide 400 mg (241.3 mg magnesium) Tablet 400 mg PO QAM RF: 0 multivitamin with minerals [Multiple Vitamin-Minerals] Tablet 1 tab PO QAM RF: 0 sitagliptin 50 mg tablet 50 mg PO DAILY Qty: 30 RF: 0 fluticasone propion-salmeterol [Advair Diskus] 250-50 mcg/dose blister with device 1 inh INHALATION BID RF: 0 acetaminophen 325 mg Tablet 650 mg PO Q6H PRN (Reason: Fever) RF: 0 amiodarone 200 mg tablet 200 mg PO QAM RF: 0 Lactinex 1 million cell Tablet,Chewable 1 tab PO DAILY RF: 0 montelukast 10 mg Tablet 10 mg PO QAM RF: 0 sennosides-docusate sodium [Senokot-S] 8.6-50 mg Tablet 1 tab-cap PO BID RF: 0 albuterol sulfate [Ventolin HFA] 90 mcg/actuation HFA aerosol inhaler 2 puff INHALATION Q4 PRN (Reason: Shortness Of Breath Or Wheezing) RF: 0 magnesium hydroxide [Milk of Magnesia] 400 mg/5 mL Suspension 30 ml PO DAILY PRN (Reason: Constipation) RF: 0 metformin 500 mg Tablet 500 mg PO BID RF: 0 levothyroxine 125 mcg Tablet 125 mcg PO DAILY RF: 0 bisacodyl [Dulcolax (bisacodyl)] 10 mg Suppository 10 mg FL DAILY PRN (Reason: Constipation) RF: 0 clotrimazole 1 % Cream 1 applic TOPICAL Q8H RF: 0 furosemide [Lasix] 40 mg tablet 40 mg PO BID Qty: 0 RF: 0 insulin lispro [Humalog U-100 Insulin] 100 unit/mL Solution 1 sliding scale dose SUBCUT USEASDIRECTD PRN (Reason: elevated bs) Qty: 0 RF: 0 oxycodone 5 mg tablet 5 mg PO TID PRN (Reason: pain) Qty: 30 RF: 0 Changed ipratropium-albuterol 0.5 mg-3 mg(2.5 mg base)/3 mL Solution For Nebulization 3 ml INHALATION QID Qty: 1 RF: 0 ferrous sulfate 325 mg (65 mg iron) Tablet 325 mg PO BID Qty: 0 RF: 0 warfarin 5 mg tablet 5 mg PO DIRECTED Qty: 30 RF: 0 metoprolol tartrate 25 mg tablet 12.5 mg PO Q12H Qty: 60 RF: 0 Discontinued lisinopril 20 mg tablet 20 mg PO DAILY Qty: 30 RF: 2 oxycodone 5 mg tablet 5 mg PO TID PRN (Reason: pain) Qty: 10 RF: 0 amoxicillin-pot clavulanate [Augmentin] 875-125 mg Tablet 1 tab PO BID RF: 0 amoxicillin 500 mg Tablet 500 mg PO BID RF: 0 Discharge Orders: Discharge Order (Routine); Ordered 01/20/20 Ordered By: Arnoldo Ruffin/Other Patient Handouts: Diabetes [employer] Liaison Officer Complications, Diabetes Healthy Meals, Understanding Carbohydrates, Diabetes Exercise Benefits Admission Data Admit Date/Time: 01/13/20 01:03 Attending Provider: Arnoldo Irvin Admit Provider: Kenyon Willis Primary Care Provider: Briseida Killian Other Providers: Leonidas Reyes ; Boubacar Barger ; Tavon Stringer ; Jeffy Townsend ; Nya Gross ; Mirlande Shea Other Interventions: Discharge Summary Assessment (RN) Last Done: 01/20/20 13:34 DC Date/Time DO NOT enter until pt leaves facility: 01/20/20 14:07 Coding Level of Care Code D/C Day Management >30 mins Diagnoses Septic shock A41.9; R65.21 Acute on chronic respiratory failure with hypoxia and hypercapnia J96.21; J96.22 Sepsis A41.9 Sepsis acute organ dysfunction status: unspecified Sepsis type: sepsis due to unspecified organism Influenza A J10.1 Acute renal failure (ARF) N17.9 Acute renal failure type: unspecified Wound, open, hip or thigh Pneumonia involving right lung J18.9 Stage II pressure ulcer of buttock L89.302 Chronic anticoagulation Z79.01 DM type 2 (diabetes mellitus, type 2) E11.9; Z79.4 Diabetes mellitus complication status: without complication 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
== END 2020-01-20 14:07 | DRG 871 ==
LOC: ED 22:07 → SUATTDRO 01-13 01:03 → 2E 01-13 01:03 → 1E 01-13 04:59 → 2E 01-16 17:33 → 3N 01-19 11:08

== ENCOUNTER 2020-02-02 05:18 | Inpatient (IN) ==
[2020-02-02] MEDS ORDERED: PIPERACILLIN/TAZOBACTAM 4.5 GM/120 ML BAG IV STA (05:41)
[2020-02-02] MEDS ORDERED: SODIUM CHLORIDE 0.9% 500 ML IV SCH (05:45)
[2020-02-02 06:11] LABS: Basophils # (auto) 0.01 K/uL (0-0.2); Basophils % (auto) 0.1 %; Eosinophils # (auto) 0.04 K/uL (0-0.5); Eosinophils % (auto) 0.5 %; Hematocrit (blood only) 30.9 % (37-47); Hemoglobin 9.3 g/dL (12.0-16.0); Immature Granulocytes # (auto) 0.02 K/uL (0.00-0.02); Immature Granulocytes % (auto) 0.2 %; Lymphocytes # (auto) 0.46 K/uL (1.2-3.4); Lymphocytes % (auto) 5.6 %; Mean Corpuscular Hemoglobin 27.3 pg (25-34); Mean Corpuscular Hgb Conc 30.1 g/dL (32-36); Mean Corpuscular Volume 90.6 fL (80-100); Mean Platelet Volume 10.1 fL (7.4-10.4); Monocytes # (auto) 0.58 K/uL (0.11-0.59); Monocytes % (auto) 7.1 %; Neutrophils # (auto) 7.07 K/uL (1.4-6.5); Neutrophils % (auto) 86.5 %; Platelet Count 241 K/uL (130-400); RDW Standard Deviation 65.4 fL (36.4-46.3); Red Blood Count 3.41 M/uL (4.2-5.4); White Blood Count 8.18 K/uL (4.8-10.8)
[2020-02-02 06:25] LABS: Albumin Level 2.4 gm/dl (3.4-5.0); BUN Creatinine Ratio 28.4 (10-20); Calcium 9.6 mg/dl (8.5-10.1); Creatinine Clr Calc Pharmacy 48.9 ml/min; Est GFR (African American) 37.4; Est GFR (Non-African American) 32.2; Potassium 4.6 mmol/L (3.5-5.1)
[2020-02-02] MEDS ORDERED: DAPTOmycin 550 MG in SYRINGE 0 ML IV ONE (06:32)
[2020-02-02] MEDS ORDERED: DAPTOMYCIN CONSULT ACTIVE PRN (06:32)
[2020-02-02 06:33] LABS: INR 3.7 (0.9-1.1); Prothrombin Time 36.1 Seconds (9.0-12.0)
[2020-02-02 06:34] LABS: Albumin Globulin Ratio 0.5 (0.9-2); Bilirubin,Total 0.4 mg/dl (0.2-1); Globulin 4.7 gm/dl (2.5-4.0); Total Protein 7.1 gm/dl (6.4-8.2); Troponin I 0.117 ng/ml (0-0.045)
[2020-02-02] MEDS ORDERED: DOXYCYCLINE HYCLATE 100 MG in DEXTROSE 5% 100 ML IV STA (06:35)
[2020-02-02 06:36] LABS: Anisocytosis Present
[2020-02-02] MEDS ORDERED: SODIUM CHLORIDE 0.9% 1000ML 500 ML IV ONE (06:36)
[2020-02-02] MEDS ORDERED: ASPIRIN CHEW 324 MG PO STA (06:39)
[2020-02-02] MEDS ORDERED: HEPARIN SODIUM/DEXTROSE 25,000 UNITS/500 ML BAG IV SCH (06:45)
[2020-02-02 06:51] LABS: Appearance Urine Cloudy (Clear); Bacteria Urine Automated 4+ (Negative); Bilirubin Urine Negative (Negative); Blood Urine Trace (Negative); Color Urine Yellow; Glucose Urine UA Negative (Negative); Ketones Urine Negative (Negative); Leukocyte Esterase Urine 2+ (Negative); Nitrite Urine Positive (Negative); Protein Urine 1+ (Negative); Specific Gravity Urine 1.016 (1.000-1.030); Urobilinogen Urine Negative (Negative); WBC Urine Automated >30 /hpf (0-5); pH Urine 6.5 (4.5-7.5)
[2020-02-02] MEDS ORDERED: ACETAMINOPHEN 1,000 MG/100 ML VIAL IV STA (07:01)
--- NOTE | 2020-02-02 07:23 | XRay Report ---
XR chest 1V portable CLINICAL HISTORY: 64 years-old Female presenting with SOB, fever. TECHNIQUE: Portable upright AP view of the chest was obtained. COMPARISON: 01/17/2020. FINDINGS: Right subclavian Mediport terminates at the superior cavoatrial junction. Atherosclerosis of the aort ic arch. Cardiac silhouette mildly enlarged. Mild pulmonary vascular prominence. Significant intersti tial prominence, which is worsened from prior exam. Diffuse added density of the lungs. Patchy bandli ke opacities and added density at the lung bases. Underlying trace left pleural effusion may be prese nt. No pneumothorax. Left shoulder arthroplasty. Degenerative changes of the right glenohumeral joint . Upper abdomen normal. IMPRESSION: 1. Cardiomegaly with volume overload and congestive change. Mild pulmonary edema is also suspected. Underlying parenchymal infiltrates/pneumonia is not excluded. 2. Suspected trace left pleural effusion. ACT 112: Negative or not required by law. Electronically signed by: Gavino Stephen M.D. 02/02/2020 7:22 AM
[2020-02-02] MEDS: SODIUM CHLORIDE 0.9% 1000ML 1,000 ML IV SCH ×2 (07:30→11:59)
--- NOTE | 2020-02-02 07:45 | Emergency Department Note ---
History of Present Illness General Chief complaint: Fever Stated complaint: FEVER Time Seen by Provider: 02/02/20 05:29 Source: patient, EMS and RN notes reviewed Mode of arrival: EMS Limitations: no limitations History of Present Illness Provider complaint: Fever, hypoxia Onset (ago): day(s) 1 Severity: moderate Maximum Pain Intensity: 6 Relieved By: + other (Oxygen) Exacerbated By: + movement Associated symptoms: + cough, + fever/chills and + shortness of breath Treatments prior to arrival: other (Acetaminophen, increased nasal cannula oxygen) This patient is a 64-year-old female who presents to the emergency department by EMS for complaints of fever x24 to 36 hours with shortness of breath. Patient was found to be hypoxic by prison staff today on her BiPAP therapy. Patient was apparently tested for influenza yesterday. She was positive for influenza 2 weeks ago. Patient states she has had a diminished appetite over the last 2 days. She denies any abdominal pain, vomiting or diarrhea. Patient denies any chest pain but does admit to some shortness of breath. There is some report that the patient was tested for COVID by prison yesterday although only the influenza swab is visible in the EMR. Home Medications Home Medications Medication Instructions Recorded Confirmed Type aspirin 81 mg PO DAILY 08/02/18 02/02/20 History atorvastatin 40 mg PO HS 08/02/18 02/02/20 History fluticasone propionate 2 spray INTRANASAL HS 08/02/18 02/02/20 History gabapentin 600 mg PO TID 08/02/18 02/02/20 History magnesium oxide 400 mg PO QAM 08/02/18 02/02/20 History multivitamin with minerals 1 tab PO QAM 08/02/18 02/02/20 History [Multiple Vitamin-Minerals] Lactinex 1 tab PO DAILY 10/13/19 02/02/20 History albuterol sulfate [Ventolin HFA] 2 puff INHALATION Q4 PRN 10/13/19 02/02/20 History montelukast 10 mg PO QAM 10/13/19 02/02/20 History sennosides-docusate sodium 1 tab-cap PO BID 10/13/19 02/02/20 History [Senokot-S] sitagliptin 50 mg PO DAILY #30 tab 11/01/19 02/02/20 Rx acetaminophen 650 mg PO Q6H PRN MDD 3gm/24hr 11/18/19 02/02/20 History amiodarone 200 mg PO QAM 11/18/19 02/02/20 History fluticasone propion-salmeterol 1 inh INHALATION BID 11/18/19 02/02/20 History [Advair Diskus] bisacodyl [Dulcolax (bisacodyl)] 10 mg DE DAILY PRN 01/12/20 02/02/20 History clotrimazole 1 applic TOPICAL Q8H 01/12/20 02/02/20 History levothyroxine 125 mcg PO DAILY 01/12/20 02/02/20 History magnesium hydroxide [Milk of 30 ml PO DAILY PRN 01/12/20 02/02/20 History Magnesia] metformin 500 mg PO BID 01/12/20 02/02/20 History diclofenac sodium [Voltaren] 4 g EXT QID #1 tube 01/20/20 02/02/20 Rx ferrous sulfate 325 mg PO BID #0 tab 01/20/20 02/02/20 Rx furosemide [Lasix] 40 mg PO BID #0 tab 01/20/20 02/02/20 Rx insulin glargine [Lantus Solostar 15 unit SC DAILY #1 pen 01/20/20 02/02/20 Rx U-100 Insulin] insulin lispro [Humalog U-100 1 sliding scale dose SUBCUT 01/20/20 02/02/20 Rx Insulin] USEASDIRECTD PRN #0 ml ipratropium-albuterol 3 ml INHALATION QID #1 box 01/20/20 02/02/20 Rx metoprolol tartrate 12.5 mg PO Q12H #60 tab 01/20/20 02/02/20 Rx acetaminophen 650 mg PO Q6 PRN MDD 3gm/24hr 02/02/20 02/02/20 History ascorbic acid (vitamin C) 500 mg PO BID 02/02/20 02/02/20 History azithromycin 250 mg PO DAILY 02/02/20 02/02/20 History ipratropium-albuterol 3 ml INHALATION .EVERY 2 HOURS PRN 02/02/20 02/02/20 History oxycodone 5 mg PO Q8 PRN 02/02/20 02/02/20 History warfarin 5 mg PO DAILY 02/02/20 02/02/20 History Allergies Allergy/AdvReac Type Severity Reaction Status Date / Time Iodinated Contrast Media Allergy Intermediate HIVES Verified 02/02/20 05:59 latex Allergy Unknown LOW LEVEL Verified 02/02/20 05:59 LATEX ALLERGY pineapple Allergy Unknown Unknown Verified 02/02/20 05:[address] HICKS Verified 02/02/20 05:59 ASKED THAT ALLERGY BE ADDED 07/31/08 Sulfa (Sulfonamide Allergy Unknown HIVES Verified 02/02/20 05:59 Antibiotics) vancomycin Allergy Unknown HIVES, GI Verified 02/02/20 05:59 UPSET Past Med/Surg History Medical History A-fib Acute and chronic respiratory failure with hypoxia Acute kidney failure Anemia Asthma (Chronic) CHF exacerbation (Acute) Chronic joint pain (Acute) CVA (cerebral vascular accident) (Acute) DM type 2 (diabetes mellitus, type 2) (Chronic) History of left shoulder replacement (Acute) Hypertension Hypothyroid Left cervical radiculopathy (Acute) Morbid obesity with body mass index of 50 or higher Osteoarthritis (Chronic) Pneumonia Proteinuria Respiratory failure with hypoxia and hypercapnia Sleep apnea "on cpap" Stroke-like symptoms Volume overload (Acute) Wound cellulitis Surgical History Status post bilateral total hip replacement (Chronic) Family History Other Family history non-contributory Social History Preferred Language: Sinhala Communication Ability: Effective 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 and A total of 10 systems reviewed and were otherwise negative Physical Exam Vital Signs Vital Signs - 24 hr 02/02/20 05:26 02/02/20 06:03 02/02/20 06:43 Temperature 38.2 C H Temperature Source Oral Pulse Rate 102 H Pulse Rate [Finger] 102 H 93 H Pulse Rhythm Regular Pulse Rhythm [Finger] Regular Regular Pulse Strength Normal Pulse Strength [Finger] Normal Normal Respiratory Rate 18 20 18 Respiratory Effort / Characteristics Non-Labored Spontaneous Non-Labored Spontaneous Non-Labored Spontaneous Respiratory Depth Normal Normal Normal Respiratory Pattern Regular Regular Regular Blood Pressure [Right Radial Artery] 96/61 L 109/74 Blood Pressure Mean [Right Radial Artery] 72 85 Blood Pressure Position Lying Blood Pressure Position [Right Radial Artery] Lying Lying Pulse Oximetry 92 91 93 Oxygen Delivery Method Nasal Cannula Nasal Cannula Nasal Cannula Oxygen Flow Rate 3 3 3 Sepsis Recent Fever Within 48 Hours Yes Sepsis New/Unexplained Change in Mental Status No Sepsis Action Taken by Nursing No Action Required 02/02/20 07:27 Temperature 37.1 C Temperature Source Oral Pulse Rate Pulse Rate [Finger] Pulse Rhythm Pulse Rhythm [Finger] Pulse Strength Pulse Strength [Finger] Respiratory Rate Respiratory Effort / Characteristics Respiratory Depth Respiratory Pattern Blood Pressure [Right Radial Artery] Blood Pressure Mean [Right Radial Artery] Blood Pressure Position Blood Pressure Position [Right Radial Artery] Pulse Oximetry Oxygen Delivery Method Oxygen Flow Rate Sepsis Recent Fever Within 48 Hours Sepsis New/Unexplained Change in Mental Status Sepsis Action Taken by Nursing Vital signs reviewed. Noted to be febrile General: Chronically ill-appearing, morbidly obese 64-year-old female in no significant distress. HEENT: No scleral icterus, PERRLA, neck supple. Atraumatic. Cardiovascular: Regular rate and rhythm, no extra sounds. Pulmonary: Crackles at the bases bilaterally with a slightly increased work of breathing. Nasal cannula oxygen in place Abdomen: Soft, obese, nontender, positive bowel sounds, limited by body habitus Musculoskeletal: Atraumatic, no peripheral edema. Neurologic: Patient awake alert and oriented x 3 Skin: Warm, dry Course Administered Medications Doxycycline Hyclate 100 mg/ (Dextrose) 110 mls @ 50 mls/hr IV NOW STA Stop: 02/02/20 08:46 Last Admin: 02/02/20 07:29 Dose: 50 mls/hr Documented by: [id number] Sodium Chloride (Nss 1000ml) 1,000 mls @ 200 mls/hr IV .Q5H CASSANDRA Stop: 03/03/20 06:44 Last Admin: 02/02/20 07:30 Dose: 200 mls/hr Documented by: [id number] Discontinued Medications Aspirin (Aspirin) 324 mg PO NOW STA Stop: 02/02/20 06:40 Last Admin: 02/02/20 07:27 Dose: 324 mg Documented by: [id number] Sodium Chloride (Nss) 500 mls @ 999 mls/hr IV .Q31M CASSANDRA Stop: 02/02/20 06:15 Last Infusion: 02/02/20 06:44 Dose: 0 mls/hr Documented by: [id number] Admin: 02/02/20 06:06 Dose: 999 mls/hr Documented by: [id number] Piperacillin Sod/Tazobactam Sod (Zosyn) 4.5 gm in 120 mls @ 200 mls/hr IV NOW STA Stop: 02/02/20 06:16 Last Infusion: 02/02/20 06:45 Dose: 0 mls/hr Documented by: [id number] Admin: 02/02/20 06:06 Dose: 200 mls/hr Documented by: [id number] Daptomycin 550 mg/ Syringe 11 mls @ 5.5 mls/min IV NOW ONE; Protocol Stop: 02/02/20 06:33 Last Admin: 02/02/20 07:29 Dose: 5.5 mls/min Documented by: [id number] Sodium Chloride (Nss 1000ml) 500 mls @ 999 mls/hr IV .Q31M ONE Stop: 02/02/20 07:06 Last Admin: 02/02/20 07:29 Dose: 999 mls/hr Documented by: [id number] Acetaminophen (Ofirmev) 1,000 mg in 100 mls @ 400 mls/hr IV NOW STA Stop: 02/02/20 07:15 Last Admin: 02/02/20 07:27 Dose: 400 mls/hr Documented by: [id number] Critical Care Time Critical Care Time: Yes (30) I have personally spent greater than 30 minutes of critical care time in the direct management of this patient. This includes bedside care, interpretation of diagnostic studies, and testing, discussion with consultants, patient, and family members, and other required patient management activities. This 30 minutes is in excess of all separately billable procedures. Medical Decision Making Differential Diagnosis Differential includes viral illness, influenza, pneumonia, UTI, pyelonephritis, non-STEMI, demand mediated ischemia, sepsis Medical Records Attestation: I reviewed the patient's medical records. Home Medications Current Medication List: was personally reviewed by me Laboratory Data Attestation: I reviewed the patient's lab results. Result diagrams: 02/02/20 05:48 02/02/20 05:48 Lab Results 02/02/20 02/02/20 02/02/20 Range/Units 05:48 05:48 05:48 WBC 8.18 (4.8-10.8) K/uL RBC 3.41 L (4.2-5.4) M/uL Hgb 9.3 L (12.0-16.0) g/dL Hct 30.9 L (37-47) % MCV 90.6 (80-100) fL MCH 27.3 (25-34) pg MCHC 30.1 L (32-36) g/dL RDW Std Deviation 65.4 H (36.4-46.3) fL RDW Coeff of Mehnaz 20.0 H (11.5-14.5) % Plt Count 241 (130-400) K/uL MPV 10.1 (7.4-10.4) fL Immature Gran % (Auto) 0.2 % Neut % (Auto) 86.5 % Lymph % (Auto) 5.6 % [place] % (Auto) 7.1 % Eos % (Auto) 0.5 % Baso % (Auto) 0.1 % Immature Gran # (Auto) 0.02 (0.00-0.02) K/uL Neut # (Auto) 7.07 H (1.4-6.5) K/uL Lymph # (Auto) 0.46 L (1.2-3.4) K/uL [place] # (Auto) 0.58 (0.11-0.59) K/uL Eos # (Auto) 0.04 (0-0.5) K/uL Baso # (Auto) 0.01 (0-0.2) K/uL Anisocytosis Present PT 36.1 H (9.0-12.0) Seconds INR 3.7 H (0.9-1.1) Sodium 140 (136-145) mmol/L Potassium 4.6 (3.5-5.1) mmol/L Chloride 102 (98-107) mmol/L Carbon Dioxide 30 (21-32) mmol/L Anion Gap 8.0 (3-11) BUN 47 H (7-18) mg/dl Creatinine 1.65 H (0.6-1.2) mg/dl Est Cr Clr Drug Dosing 48.9 ml/min Est GFR ( Amer) 37.4 Est GFR (Non-Af Amer) 32.2 BUN/Creatinine Ratio 28.4 H (10-20) Glucose 186 H (70-99) mg/dl Lactate (0.4-2.0) mmol/L Calcium 9.6 (8.5-10.1) mg/dl Total Bilirubin 0.4 (0.2-1) mg/dl AST 21 (15-37) U/L ALT 25 (12-78) U/L Alkaline Phosphatase 91 (45-117) U/L Troponin I 0.117 H* (0-0.045) ng/ml Total Protein 7.1 (6.4-8.2) gm/dl Albumin 2.4 L (3.4-5.0) gm/dl Globulin 4.7 H (2.5-4.0) gm/dl Albumin/Globulin Ratio 0.5 L (0.9-2) Urine Color Urine Appearance (Clear) Urine pH (4.5-7.5) Ur Specific [place] (1.000-1.030) Urine Protein (Negative) Urine Glucose (UA) (Negative) Urine Ketones (Negative) Urine Blood (Negative) Urine Nitrite (Negative) Urine Bilirubin (Negative) Urine Urobilinogen (Negative) Ur Leukocyte Esterase (Negative) Urine WBC (Auto) (0-5) /hpf Urine RBC (Auto) (0-4) /hpf U Hyaline Cast (Auto) (0-5) /lpf U Epithel Cells (Auto) (0-5) /lpf Urine Bacteria (Auto) (Negative) Urine Crystals Other Crystals (None Prsent) 02/02/20 02/02/20 Range/Units 05:48 06:20 WBC (4.8-10.8) K/uL RBC (4.2-5.4) M/uL Hgb (12.0-16.0) g/dL Hct (37-47) % MCV (80-100) fL MCH (25-34) pg MCHC (32-36) g/dL RDW Std Deviation (36.4-46.3) fL RDW Coeff of Mehnaz (11.5-14.5) % Plt Count (130-400) K/uL MPV (7.4-10.4) fL Immature Gran % (Auto) % Neut % (Auto) % Lymph % (Auto) % [place] % (Auto) % Eos % (Auto) % Baso % (Auto) % Immature Gran # (Auto) (0.00-0.02) K/uL Neut # (Auto) (1.4-6.5) K/uL Lymph # (Auto) (1.2-3.4) K/uL [place] # (Auto) (0.11-0.59) K/uL Eos # (Auto) (0-0.5) K/uL Baso # (Auto) (0-0.2) K/uL Anisocytosis PT (9.0-12.0) Seconds INR (0.9-1.1) Sodium (136-145) mmol/L Potassium (3.5-5.1) mmol/L Chloride (98-107) mmol/L Carbon Dioxide (21-32) mmol/L Anion Gap (3-11) BUN (7-18) mg/dl Creatinine (0.6-1.2) mg/dl Est Cr Clr Drug Dosing ml/min Est GFR ( Amer) Est GFR (Non-Af Amer) BUN/Creatinine Ratio (10-20) Glucose (70-99) mg/dl Lactate 3.4 H* (0.4-2.0) mmol/L Calcium (8.5-10.1) mg/dl Total Bilirubin (0.2-1) mg/dl AST (15-37) U/L ALT (12-78) U/L Alkaline Phosphatase (45-117) U/L Troponin I (0-0.045) ng/ml Total Protein (6.4-8.2) gm/dl Albumin (3.4-5.0) gm/dl Globulin (2.5-4.0) gm/dl Albumin/Globulin Ratio (0.9-2) Urine Color Yellow Urine Appearance Cloudy A (Clear) Urine pH 6.5 (4.5-7.5) Ur Specific [place] 1.016 (1.000-1.030) Urine Protein 1+ H (Negative) Urine Glucose (UA) Negative (Negative) Urine Ketones Negative (Negative) Urine Blood Trace H (Negative) Urine Nitrite Positive A (Negative) Urine Bilirubin Negative (Negative) Urine Urobilinogen Negative (Negative) Ur Leukocyte Esterase 2+ H (Negative) Urine WBC (Auto) >30 H (0-5) /hpf Urine RBC (Auto) 5-10 H (0-4) /hpf U Hyaline Cast (Auto) 1-5 (0-5) /lpf U Epithel Cells (Auto) 10-20 H (0-5) /lpf Urine Bacteria (Auto) 4+ H (Negative) Urine Crystals Not Reportable Other Crystals Talc (None Prsent) Imaging Data My Impression: Chest x-ray to my interpretation reveals cardiomegaly, pulmonary vascular congestion. Radiologist's Impression: XR chest 1V portable CLINICAL HISTORY: 64 years-old Female presenting with SOB, fever. TECHNIQUE: Portable upright AP view of the chest was obtained. COMPARISON: 01/17/2020. FINDINGS: Right subclavian Mediport terminates at the superior cavoatrial junction. Atherosclerosis of the aortic arch. Cardiac silhouette mildly enlarged. Mild pulmonary vascular prominence. Significant interstitial prominence, which is worsened from prior exam. Diffuse added density of the lungs. Patchy bandlike opacities and added density at the lung bases. Underlying trace left pleural effusion may be present. No pneumothorax. Left shoulder arthroplasty. Degenerative changes of the right glenohumeral joint. Upper abdomen normal. IMPRESSION: 1. Cardiomegaly with volume overload and congestive change. Mild pulmonary edema is also suspected. Underlying parenchymal infiltrates/pneumonia is not excluded. 2. Suspected trace left pleural effusion. ACT 112: Negative or not required by law. Electronically signed by: Gavino Stephen M.D. 02/02/2020 7:22 AM Dictated: 02/02/20719 Transcribed: 02/02/20719 ECG Data Attestation: I personally reviewed and interpreted this ECG as follows: Indication: + SOB/dyspnea Rate (beats per minute): 102 Rhythm: + sinus tachycardia ECG Findings: + Q waves (Anterior); no PACs and no PVCs Additional Comments: Low voltage Blood Pressure Blood Pressure Findings: Low blood pressure Blood Pressure Disposition: further management by hospitalist MDM Narrative This patient was evaluated and appeared to be in no significant distress. Physical examination is significant for coarse breath sounds bilaterally and increased oxygen demand. Patient is resting comfortably on nasal cannula at this time and is noted to be febrile. Lactic acid is noted to be 3.5. Blood cultures are pending. Patient has a long list of antibiotic allergies. She was medicated with IV Zosyn IV daptomycin and IV doxycycline. Urinalysis was obtained and is contaminated with epithelial cells, likely secondary to technical difficulties secondary to body habitus. Patient was hydrated with normal saline solution 500 mL bolus and a continuous rate, although does appear to be in some fluid overload on chest x-ray therefore given less than 30 mL/kg. Patient is noted to have an elevated troponin without evidence of ST elevation on EKG. I suspect this is demand mediated. Patient tested negative for influenza yesterday, COVID testing is pending. Patient's case was discussed with Dr. Edmondson of the hospitalist service who will evaluate the patient for further management. Impression & Plan Sepsis, Hypoxia, Volume overload, UTI (urinary tract infection) Discharge Plan Visit Data Chief Complaint: Fever Stated Complaint: FEVER ED Provider: Nicolasa Tayolr Discharge Problem: Sepsis, Hypoxia, Volume overload, UTI (urinary tract infection) Forms Stand Alone Forms: My [facility] Prescriptions Prescriptions: No Action gabapentin 600 mg tablet 600 mg PO TID RF: 0 fluticasone propionate 50 mcg/actuation spray,suspension 2 spray Intranasal HS RF: 0 atorvastatin 40 mg tablet 40 mg PO HS RF: 0 aspirin 81 mg Tablet,Delayed Release (Dr/Ec) 81 mg PO DAILY RF: 0 magnesium oxide 400 mg (241.3 mg magnesium) Tablet 400 mg PO QAM RF: 0 multivitamin with minerals [Multiple Vitamin-Minerals] Tablet 1 tab PO QAM RF: 0 sitagliptin 50 mg tablet 50 mg PO DAILY Qty: 30 RF: 0 fluticasone propion-salmeterol [Advair Diskus] 250-50 mcg/dose blister with device 1 inh INHALATION BID RF: 0 acetaminophen 325 mg Tablet 650 mg PO Q6H MDD 3gm/24hr PRN (Reason: temp>100) RF: 0 amiodarone 200 mg tablet 200 mg PO QAM RF: 0 Lactinex 1 million cell Tablet,Chewable 1 tab PO DAILY RF: 0 montelukast 10 mg Tablet 10 mg PO QAM RF: 0 sennosides-docusate sodium [Senokot-S] 8.6-50 mg Tablet 1 tab-cap PO BID RF: 0 albuterol sulfate [Ventolin HFA] 90 mcg/actuation HFA aerosol inhaler 2 puff INHALATION Q4 PRN (Reason: Shortness Of Breath Or Wheezing) RF: 0 magnesium hydroxide [Milk of Magnesia] 400 mg/5 mL Suspension 30 ml PO DAILY PRN (Reason: Constipation) RF: 0 metformin 500 mg Tablet 500 mg PO BID RF: 0 levothyroxine 125 mcg Tablet 125 mcg PO DAILY RF: 0 bisacodyl [Dulcolax (bisacodyl)] 10 mg Suppository 10 mg DE DAILY PRN (Reason: Constipation) RF: 0 clotrimazole 1 % Cream 1 applic TOPICAL Q8H RF: 0 diclofenac sodium [Voltaren] 1 % Gel 4 g EXT QID Qty: 1 RF: 0 Lantus Solostar U-100 Insulin 100 unit/mL (3 mL) Insulin Pen 15 unit SC DAILY Qty: 1 RF: 2 furosemide [Lasix] 40 mg tablet 40 mg PO BID Qty: 0 RF: 0 ipratropium-albuterol 0.5 mg-3 mg(2.5 mg base)/3 mL Solution For Nebulization 3 ml INHALATION QID Qty: 1 RF: 0 ferrous sulfate 325 mg (65 mg iron) Tablet 325 mg PO BID Qty: 0 RF: 0 insulin lispro [Humalog U-100 Insulin] 100 unit/mL Solution 1 sliding scale dose SUBCUT USEASDIRECTD PRN (Reason: elevated bs) Qty: 0 RF: 0 metoprolol tartrate 25 mg tablet 12.5 mg PO Q12H Qty: 60 RF: 0 azithromycin 250 mg tablet 250 mg PO DAILY RF: 0 ascorbic acid (vitamin C) 500 mg Tablet 500 mg PO BID RF: 0 warfarin 5 mg tablet 5 mg PO DAILY RF: 0 oxycodone 5 mg tablet 5 mg PO Q8 PRN (Reason: pain scale 5-10) RF: 0 ipratropium-albuterol 0.5 mg-3 mg(2.5 mg base)/3 mL solution for nebulization 3 ml INHALATION .EVERY 2 HOURS PRN (Reason: Shortness Of Breath Or Wheezing) RF: 0 acetaminophen 325 mg Tablet 650 mg PO Q6 MDD 3gm/24hr PRN (Reason: Pain) RF: 0 Discharge Problem: Sepsis Qualifiers: Sepsis type: sepsis due to unspecified organism Sepsis acute organ dysfunction status: with acute organ dysfunction Severe sepsis acute organ dysfunction type: acute respiratory failure Acute respiratory failure type: unspecified Severe sepsis shock status: without septic shock Qualified Code(s): A41.9 - Sepsis, unspecified organism Volume overload Qualifiers: Hypervolemia type: unspecified Qualified Code(s): E87.70 - Fluid overload, unspecified UTI (urinary tract infection) Qualifiers: Urinary tract infection type: acute cystitis Hematuria presence: without hem aturia Qualified Code(s): N30.00 - Acute cystitis without hematuria
--- NOTE | 2020-02-02 08:23 | History & Physical Report ---
Date of Service February 02, 2020 Assessment & Plan (1) Acute and chronic respiratory failure with hypoxia: - Admit to SCU - Continue with daptomycin, zosyn and doxycycline with possibility of pneumonia as seen on CXR, fever, MOURA, increased O2 requirement - Supportive care with flutter, incentive spirometry, mucinex, will order combivent- as possible COVID want to avoid nebs - wean o2 as tolerated, does not wear any O2 at baseline - Flu swab negative - COVD-19 in process, maintain on airborne precautions in negative pressure room until results obtained. Pt a resident of [facility], large volume of potential contacts if this is indeed a COVID-19 infection - Consider ABG if worsening/changes in mental status, continue on O2 at 3L for now - Lactate elevated at 3.4 on admission, administered 1 L NSS - Blood cx and urine cx pending (2) Fever: - Tylenol prn - Tmax 38.2 earlier this am - follow cx as above (3) Pneumonia: - Probable, as reviewed on CXR, consider repat cxr if any changes - Continue supportive care as above (4) Volume overload: - Pt appears euvolemic on exam, no JVD, legs without any edema - pt uses lasix 40 mg BID at home which we can continue starting tonight - CXR reviewed as above - Weight from time of discharge at last admission to now is 155.4- 155.9 kg (5) Afib: - Currently rate controlled, continue coumadin starting on 02/02 ( hold tonight's dose for high INR) - Cont amiodarone 200 mg QAM, metoprolol tartrate 12.5 mg Q12H - Follow daily INR, on admission =3.7 (6) DM type 2 (diabetes mellitus, type 2): - ISS with accuchecks ACHS - Continue Lantus 15 U QAM, continue sitagliptin 50 mg daily - Hold metformin (7) Chronic joint pain: - Stable, continue voltaren gel topically - Does not take oxycodone prn as listed on medication list - will remove (8) Anemia: - Chronic (9) Morbid obesity with body mass index of 50 or higher: - BMI of 64.9 - Diet and exercise (10) Hypothyroid: - Continue levothyroxine 125 mcg TSH 1.64 here (11) Sleep apnea: - Chronic, does not wear O2 at baseline, does wear Nasal cpap ONLY, declines full face mask. (12) Elevated troponin: - Pt also has slightly elevated troponin on 0.117, has not previously been elevated, will trend x2 to ensure resolves. Likely secondarty to demand ischemia with elevated lactic acid, fever, and possibly dry. - No chest pain or concerns for ACS as seen on EKG as above. (13) Sarcopenia: - Albumin decreased at 2.4 on admission, will start boost supplementation, QID, most important dose to be given HS (14) DVT prophylaxis: -coumadin, no scds or teds due to skin breakdown CODE: Dispo: From [facility], likely to remain in the hospital x 1-2 days History of Present Illness Primary Care Provider: [facility] This is a 64 yo F who is a resident of [facility], with PMH of gram - septicemia, DM II, paroxsysmal afib/flutter, chronic respiratory failure with hypoxia, HTN, chronically anticoagulation with coumadin, anemia, chronic joint pain, hypothyroidism, hx MRSA, multiple skin wounds and left nonhealing hip wound x 17 years, KHALIDA, BMI of 64.9 and likely obesity hypoventilation syndrome, who was recently hospitalized here at [facility] for influenza A infection with acute on chronic hypercarbic/hypoxic respiratory failure, and septic shock requiring intubation and vasopressors for hemodynamic support, and temporary dialysis for acute renal failure. The patient presents to day with new onset of fever and chills yesterday. She was screened for influenza again at [facility] on 01/31 and this is negative. Due to her recent onset of fever again, she was screened for COVID-19. She denies any travel, and has not been visited by anyone since being released from the hospital during her last stay as the visitation restrictions were implemented at nursing facilities. She admits to slight white-yellow sputum production within the past 24 hours, increased shortness of breath with ADLs (however she is primarily bedbound with only other activity is getting up to the chair), but denies runny nose, sore throat, headache, or body aches. She is noted to have an infected appearing UA on screening; pt denies dysuria, increased frequency, but notes that she is a little incontinent, and uses a brief which is changed every 4-6 hours. She has not noticed foul smelling urine. Pt also has a chronic R hip wound which appears to have increased redness surrounding the area, and last time she saw the wound clinic 01/05/2020 as an outpt. Since then she has been following in the nursing facility and has been on azithromycin for the hip. She is not using anything topically around the wound for yeast. In the ER she has been started on daptomycin, zosyn and doxycycline. CXR is noted to have possible volume overloaded. Allergies Allergy/AdvReac Type Severity Reaction Status Date / Time Iodinated Contrast Media Allergy Intermediate HIVES Verified 02/02/20 05:59 latex Allergy Unknown LOW LEVEL Verified 02/02/20 05:59 LATEX ALLERGY pineapple Allergy Unknown Unknown Verified 02/02/20 05:[address] HICKS Verified 02/02/20 05:59 ASKED THAT ALLERGY BE ADDED 07/31/08 Sulfa (Sulfonamide Allergy Unknown HIVES Verified 02/02/20 05:59 Antibiotics) vancomycin Allergy Unknown HIVES, GI Verified 02/02/20 05:59 UPSET Home Medications Home Medications Medication Instructions Recorded Confirmed Type aspirin 81 mg PO DAILY 08/02/18 02/02/20 History atorvastatin 40 mg PO HS 08/02/18 02/02/20 History fluticasone propionate 2 spray INTRANASAL HS 08/02/18 02/02/20 History gabapentin 600 mg PO TID 08/02/18 02/02/20 History magnesium oxide 400 mg PO QAM 08/02/18 02/02/20 History multivitamin with minerals 1 tab PO QAM 08/02/18 02/02/20 History [Multiple Vitamin-Minerals] Lactinex 1 tab PO DAILY 10/13/19 02/02/20 History albuterol sulfate [Ventolin HFA] 2 puff INHALATION Q4 PRN 10/13/19 02/02/20 History montelukast 10 mg PO QAM 10/13/19 02/02/20 History sennosides-docusate sodium 1 tab-cap PO BID 10/13/19 02/02/20 History [Senokot-S] sitagliptin 50 mg PO DAILY #30 tab 11/01/19 02/02/20 Rx acetaminophen 650 mg PO Q6H PRN MDD 3gm/24hr 11/18/19 02/02/20 History amiodarone 200 mg PO QAM 11/18/19 02/02/20 History fluticasone propion-salmeterol 1 inh INHALATION BID 11/18/19 02/02/20 History [Advair Diskus] bisacodyl [Dulcolax (bisacodyl)] 10 mg UT DAILY PRN 01/12/20 02/02/20 History clotrimazole 1 applic TOPICAL Q8H 01/12/20 02/02/20 History levothyroxine 125 mcg PO DAILY 01/12/20 02/02/20 History magnesium hydroxide [Milk of 30 ml PO DAILY PRN 01/12/20 02/02/20 History Magnesia] metformin 500 mg PO BID 01/12/20 02/02/20 History diclofenac sodium [Voltaren] 4 g EXT QID #1 tube 01/20/20 02/02/20 Rx ferrous sulfate 325 mg PO BID #0 tab 01/20/20 02/02/20 Rx furosemide [Lasix] 40 mg PO BID #0 tab 01/20/20 02/02/20 Rx insulin glargine [Lantus Solostar 15 unit SC DAILY #1 pen 01/20/20 02/02/20 Rx U-100 Insulin] insulin lispro [Humalog U-100 1 sliding scale dose SUBCUT 01/20/20 02/02/20 Rx Insulin] USEASDIRECTD PRN #0 ml ipratropium-albuterol 3 ml INHALATION QID #1 box 01/20/20 02/02/20 Rx metoprolol tartrate 12.5 mg PO Q12H #60 tab 01/20/20 02/02/20 Rx acetaminophen 650 mg PO Q6 PRN MDD 3gm/24hr 02/02/20 02/02/20 History ascorbic acid (vitamin C) 500 mg PO BID 02/02/20 02/02/20 History azithromycin 250 mg PO DAILY 02/02/20 02/02/20 History ipratropium-albuterol 3 ml INHALATION .EVERY 2 HOURS PRN 02/02/20 02/02/20 History warfarin 5 mg PO DAILY 02/02/20 02/02/20 History Past Med/Surg History Medical History (Updated 02/02/20 @ 09:37 by Yumiko Crenshaw PA-C) A-fib Acute and chronic respiratory failure with hypoxia Acute kidney failure Anemia Asthma (Chronic) CHF exacerbation (Acute) Chronic joint pain (Acute) CVA (cerebral vascular accident) (Acute) DM type 2 (diabetes mellitus, type 2) (Chronic) History of left shoulder replacement (Acute) Hypertension Hypothyroid Left cervical radiculopathy (Acute) Morbid obesity with body mass index of 50 or higher Osteoarthritis (Chronic) Pneumonia Proteinuria Respiratory failure with hypoxia and hypercapnia Sleep apnea "on cpap" Stroke-like symptoms Volume overload (Acute) Wound cellulitis Surgical History Status post bilateral total hip replacement (Chronic) Family History Other Family history non-contributory Social History Preferred Language: Nicaraguan Communication Ability: Effective Site Medical Director Required: No Beliefs That Will Affect Care: None marital status: Single Current Living Situation: [facility] Current Living Situation Comment: [facility] Feels Safe at Home: Yes Safety Concerns: Feels Safe At This Time Smoking Status: Never smoker Second Hand Exposure: No ; Hx Alcohol Use: No Hx Substance Use: No Review of Systems Review of Systems: Constitutional:+ fever and chills Eyes: No diplopia, no worsening or blurred vision ENT: normal hearing, no trouble swallowing Respiratory: + cough, +sputum, + dyspnea on exertion Cardiovascular: No chest pain, tightness or palpitations Abdomen: No pain, nausea, vomiting, diarrhea or constipation Musculoskeletal: No joint pain, calf pain, swelling Neurologic: No weakness, numbness/tingling, or balance problems Psychiatric: No anxiety or depression Skin: No rash or itch Physical Exam Physical Exam: General: awake, alert, no apparent distress, morbidly obese with BMI of 64.9 Head: Normocephalic, atraumatic ENT: PERRL, EOMI, no pharyngeal exudate, mucous membranes moist Chest: + difficulty auscultating due to body habitus, slightly diminished at bases with faint crackles, on 3L via NC Cardiac: Regular rate and rhythm, no murmur, no JVD, normal peripheral pulses, good capillary refill Abdominal: NABS x 4 quadrants, Obese, nondistended, soft, nontender to palpation, no rebound, guarding or tenderness Extremities: + R hip with chronic wound, + surrounding erythema, + cottage cheese like discharge from site. Otherwise normal inspection, no peripheral edema or erythema, calfs nontender to palpation Psych: Normal mood and affect Neuro: AAO x 3, strength intact bilaterally and rated 4/5 in all extremities, no motor deficits, speech is clear, no peripheral sensory deficits Results & Data Results & Data ([facility]) Vital Signs (Past 12 Hours) Vital Signs Temp Pulse Pulse Resp BP Pulse Ox 02/02/20 07:40 82 20 103/61 93 02/02/20 07:27 37.1 C 02/02/20 06:43 93 H 18 109/74 93 02/02/20 06:03 102 H 20 96/61 L 91 02/02/20 05:26 38.2 C H 102 H 18 92 Diagnostic Findings R chest 1V portable CLINICAL HISTORY: 64 years-old Female presenting with SOB, fever. TECHNIQUE: Portable upright AP view of the chest was obtained. COMPARISON: 01/17/2020. FINDINGS: Right subclavian Mediport terminates at the superior cavoatrial junction. Atherosclerosis of the aortic arch. Cardiac silhouette mildly enlarged. Mild pulmonary vascular prominence. Significant interstitial prominence, which is worsened from prior exam. Diffuse added density of the lungs. Patchy bandlike opacities and added density at the lung bases. Underlying trace left pleural effusion may be present. No pneumothorax. Left shoulder arthroplasty. Degenerative changes of the right glenohumeral joint. Upper abdomen normal. IMPRESSION: 1. Cardiomegaly with volume overload and congestive change. Mild pulmonary edema is also suspected. Underlying parenchymal infiltrates/pneumonia is not excluded. 2. Suspected trace left pleural effusion. ACT 112: Negative or not required by law. ECG Additional Comments: 02-FEB-2020 05:45:27 [facility]-EDSTAT ROUTINE RETRIEVAL Sinus tachycardia Low voltage QRS Borderline ECG When compared with ECG of 15-JAN-2020 06:52, Vent. rate has increased BY 46 BPM Criteria for Anterior infarct are no longer Present ST no longer depressed in Anterolateral leads Nonspecific T wave abnormality no longer evident in Inferior leads T wave inversion no longer evident in Anterior leads 25mm/s 10mm/mV 150Hz 9.0.9 12SL 241 FLORENTIN: 10 Referred by: [facility] Unconfirmed Vent. rate 102 BPM UT interval 168 ms QRS duration 116 ms QT/QTc 372/484 ms P-R-T axes 77 44 42 Code Status & VTE Plan Code Status Full code - discussed with the pt at bedside. Supervising Physician Co-Signing Physician Notes PA Supervision Note: I personally saw and examined the patient. I verified all lechuga points and agree with STANISLAW Crenshaw with the following exceptions and/or additions: Pt denies SOB and is on O2. Had a fever since yesterday and feels better now that tylenol has been given. History as above. Possible UTI and wound infection causing fever Vitals reviewed Morbidly obese, NAD RRR no mgr Lungs with crackles at bases, some exp wheezes Abd +BS soft NT ND, massively obese Ext no edema, 2+ DP pulses, right hip with open draining wound with blood and serous fluid, surrounding erythema 64 yo female here with fever likely more from UTI and/or wound infection of hip with a h/o MRSA. Follow cultures, start broad spectrum abx Not likely PNA and not suspecting of COVID 19--> airborne precautions cancelled PG Care Time/CCT Total # of Minutes Spent Total Time Spent with Patient: Total time spent is greater than 50% in coordination of care (as documented) at patient's floor/unit and/or counseling patient: Coding Level of Care Code 47815 Initial Inpt Care Lvl 3 Diagnoses Acute and chronic respiratory failure with hypoxia J96.21 Fever R50.9 Pneumonia J18.9 Volume overload E87.70 Hypervolemia type: unspecified Afib I48.91 DM type 2 (diabetes mellitus, type 2) E11.9 Chronic joint pain M25.50; G89.29 Anemia D64.89 Anemia type: other cause Other causes of anemia: other cause, not classified Morbid obesity with body mass index of 50 or higher E66.01 Hypothyroid E03.9 Hypothyroidism type: unspecified Sleep apnea G47.33 Sleep apnea type: obstructive Elevated troponin R79.89 Sarcopenia M62.84 DVT prophylaxis Z29.9 (1) Sleep apnea Sleep apnea type: obstructive Qualified Code(s): G47.33 - Obstructive sleep apnea (adult) (pediatric) (2) Anemia Anemia type: other cause Other causes of anemia: other cause, not classified Qualified Code(s): D64.89 - Other specified anemias (3) Hypothyroid Hypothyroidism type: unspecified Qualified Code(s): E03.9 - Hypothyroidism, unspecified (4) Volume overload Hypervolemia type: unspecified Qualified Code(s): E87.70 - Fluid overload, unspecified
[2020-02-02] MEDS ORDERED: DEXTROSE 50% 50 ML SYRINGE IV PRN (10:04)
[2020-02-02] MEDS ORDERED: MAGNESIUM HYDROXIDE SUSP 30 ML UDC PO PRN (10:04)
[2020-02-02] MEDS ORDERED: ALBUT/IPRATROP 3MG/0.5MG NEB 3 ML VIAL INH PRN (10:04)
[2020-02-02] MEDS ORDERED: bisacodyL 10 MG SUPP PR PRN (10:04)
[2020-02-02] MEDS ORDERED: GLUCOSE 10 TABS/TUBE PO PRN (10:04)
[2020-02-02] MEDS ORDERED: ONDANSETRON INJ 2 MG/ML 2 ML VIAL IV PRN (10:04)
[2020-02-02] MEDS ORDERED: ALBUTEROL HFA 8 GM INHALER INH PRN (10:04)
[2020-02-02] MEDS ORDERED: GLUCOSE 40% GEL 15 GM TUBE PO PRN (10:04)
[2020-02-02] MEDS ORDERED: GLUCAGON FOR INJ 1 MG VIAL SQ PRN (10:04)
[2020-02-02] MEDS ORDERED: CARBOHYDRATES FOR HYPOGLYCEMIA PO PRN (10:04)
[2020-02-02] MEDS ORDERED: PIPERACILL/TAZOBAC CONSULT ACTIVE PRN (10:49)
[2020-02-02] MEDS: ALBUT/IPRATROP 3MG/0.5MG NEB 3 ML VIAL INH SCH ×3 (11:35→19:19)
[2020-02-02] MEDS: PIPERACILLIN/TAZOBACTAM 4.5 GM in DEXTROSE 5% 100 ML IV SCH ×2 (11:59→20:21)
[2020-02-02] MEDS: LEVOTHYROXINE SODIUM 125 MCG TABLET PO SCH (12:00)
[2020-02-02] MEDS: MONTELUKAST SODIUM 10 MG TABLET PO SCH (12:00)
[2020-02-02] MEDS: CLOTRIMAZOLE 1% CR 15 GM TUBE TOP SCH ×2 (12:00→20:21)
[2020-02-02] MEDS: INSULIN ASPART 100 UNITS/ML 3 ML PEN SC SCH ×3 (12:00→20:26)
[2020-02-02] MEDS: GABAPENTIN 600 MG TAB PO SCH ×3 (12:00→20:24)
[2020-02-02] MEDS: MAGNESIUM OXIDE 400 MG TAB PO SCH (12:00)
[2020-02-02] MEDS: IPRATROPIUM BROMIDE/ALBUTEROL respimat INH INH SCH ×3 (12:01→20:22)
[2020-02-02] MEDS: SITAGLIPTIN PHOSPHATE 25 MG TAB PO SCH (12:02)
[2020-02-02] MEDS: METOPROLOL TARTRATE 25 MG TAB PO SCH ×2 (12:02→20:40)
[2020-02-02] MEDS: ASCORBIC ACID 500 MG TAB PO SCH ×2 (12:03→20:25)
[2020-02-02] MEDS: FLUTICASONE/VILANTEROL 200/25MCG 14 PUFFS/INHALER INH SCH (12:03)
[2020-02-02] MEDS: DICLOFENAC SOD 1% GEL 100 GM TUBE EXT SCH ×3 (12:04→20:24)
[2020-02-02] MEDS: AMIODARONE 200 MG TAB PO SCH (12:06)
[2020-02-02] MEDS: FUROSEMIDE 40 MG TAB PO SCH ×2 (12:07→20:23)
[2020-02-02] MEDS: DOCUSATE SODIUM/SENNA 50/8.6MG TAB PO SCH ×2 (12:59→20:38)
[2020-02-02] MEDS: INSULIN GLARGINE SOLOSTAR 100 UNITS/ML 3 ML PEN SC SCH (13:04)
--- NOTE | 2020-02-02 15:45 | Electrocardiogram Report ---
Test Reason : Blood Pressure : / mmHG Vent. Rate : 102 BPM Atrial Rate : 102 BPM P-R Int : 168 ms QRS Dur : 116 ms QT Int : 372 ms P-R-T Axes : 077 044 042 degrees QTc Int : 484 ms Sinus tachycardia Low voltage QRS Poor R wave progression, consider anterior CT vs. lead placement vs. LVH Borderline ECG When compared with ECG of 15-JAN-2020 06:52, Vent. rate has increased BY [address] no longer depressed in Anterolateral leads Nonspecific T wave abnormality no longer evident in Inferior leads T wave inversion no longer evident in Anterior leads Confirmed by Ruben Carbajal ([id number]) on 02/02/2020 3:45:10 PM Referred By: [facility] Confirmed By:Osito Carbajal
[2020-02-02] MEDS: DOXYCYCLINE HYCLATE 100 MG in DEXTROSE 5% 100 ML IV SCH (20:21)
[2020-02-02] MEDS: FLUTICASONE PROPIONATE NA SPR 16 GM BTL SCH (20:22)
[2020-02-02] MEDS: FERROUS SULFATE 325 MG TAB PO SCH (20:24)
[2020-02-02 20:32] LABS: BUN Creatinine Ratio 27.3 (10-20); Creatinine Clr Calc Pharmacy 52.7 ml/min; Est GFR (African American) 40.9; Est GFR (Non-African American) 35.3; Potassium 4.2 mmol/L (3.5-5.1)
[2020-02-02 20:56] LABS: Troponin I 0.658 ng/ml (0-0.045)
[2020-02-02] MEDS: ACETAMINOPHEN 325 MG TAB PO PRN (20:57)
[2020-02-02] MEDS ORDERED: ATORVASTATIN 40 MG TAB PO SCH (21:00)
[2020-02-02] MEDS ORDERED: Nursing to Pharmacy Communication ONE (21:00)
[2020-02-03] MEDS: DOXYCYCLINE HYCLATE 100 MG in DEXTROSE 5% 100 ML IV SCH (00:30)
[2020-02-03] MEDS: PIPERACILLIN/TAZOBACTAM 4.5 GM in DEXTROSE 5% 100 ML IV SCH ×3 (04:02→20:21)
[2020-02-03] MEDS: CLOTRIMAZOLE 1% CR 15 GM TUBE TOP SCH ×3 (04:02→20:21)
[2020-02-03] MEDS: LEVOTHYROXINE SODIUM 125 MCG TABLET PO SCH (06:19)
[2020-02-03] MEDS: ALBUT/IPRATROP 3MG/0.5MG NEB 3 ML VIAL INH SCH ×4 (07:18→19:04)
[2020-02-03 07:22] LABS: INR 4.2 (0.9-1.1); Prothrombin Time 41.2 Seconds (9.0-12.0)
[2020-02-03 07:29] LABS: BUN Creatinine Ratio 26.6 (10-20); Calcium 8.6 mg/dl (8.5-10.1); Creatinine Clr Calc Pharmacy 56.6 ml/min; Est GFR (African American) 44.1; Potassium 3.9 mmol/L (3.5-5.1)
[2020-02-03 07:31] LABS: Albumin Globulin Ratio 0.5 (0.9-2); Bilirubin,Total 0.5 mg/dl (0.2-1); Globulin 4.4 gm/dl (2.5-4.0); Total Protein 6.4 gm/dl (6.4-8.2)
[2020-02-03 07:35] LABS: Hematocrit (blood only) 26.4 % (37-47); Hemoglobin 8.2 g/dL (12.0-16.0); Mean Corpuscular Hemoglobin 27.2 pg (25-34); Mean Corpuscular Hgb Conc 31.1 g/dL (32-36); Mean Corpuscular Volume 87.4 fL (80-100); Mean Platelet Volume 10.2 fL (7.4-10.4); Platelet Count 213 K/uL (130-400); RDW Coefficient of Variation 20.1 % (11.5-14.5); RDW Standard Deviation 63.9 fL (36.4-46.3); Red Blood Count 3.02 M/uL (4.2-5.4); White Blood Count 5.69 K/uL (4.8-10.8)
[2020-02-03] MEDS ORDERED: DAPTOmycin 550 MG in SYRINGE 0 ML IV SCH (08:00)
[2020-02-03] MEDS: FERROUS SULFATE 325 MG TAB PO SCH ×2 (09:36→20:40)
[2020-02-03] MEDS: CEROVITE ADV FORMULA TAB PO SCH (09:36)
[2020-02-03] MEDS: AMIODARONE 200 MG TAB PO SCH (09:36)
[2020-02-03] MEDS: LACTOBACILLUS ACIDOPHILUS (FLORANEX) TAB PO SCH (09:37)
[2020-02-03] MEDS: METOPROLOL TARTRATE 25 MG TAB PO SCH ×2 (09:37→20:44)
[2020-02-03] MEDS: SITAGLIPTIN PHOSPHATE 25 MG TAB PO SCH (09:38)
[2020-02-03] MEDS: ASPIRIN 81 MG ECTAB PO SCH (09:38)
[2020-02-03] MEDS: MONTELUKAST SODIUM 10 MG TABLET PO SCH (09:38)
[2020-02-03] MEDS: GABAPENTIN 600 MG TAB PO SCH ×3 (09:38→20:23)
[2020-02-03] MEDS: MAGNESIUM OXIDE 400 MG TAB PO SCH (09:38)
[2020-02-03] MEDS: FUROSEMIDE 40 MG TAB PO SCH ×2 (09:38→20:23)
[2020-02-03] MEDS: ASCORBIC ACID 500 MG TAB PO SCH ×2 (09:39→20:41)
[2020-02-03] MEDS: IPRATROPIUM BROMIDE/ALBUTEROL respimat INH INH SCH ×4 (09:39→20:21)
[2020-02-03] MEDS: FLUTICASONE/VILANTEROL 200/25MCG 14 PUFFS/INHALER INH SCH (09:39)
[2020-02-03] MEDS: DICLOFENAC SOD 1% GEL 100 GM TUBE EXT SCH ×4 (09:40→20:22)
[2020-02-03] MEDS: INSULIN GLARGINE SOLOSTAR 100 UNITS/ML 3 ML PEN SC SCH (09:41)
[2020-02-03] MEDS: INSULIN ASPART 100 UNITS/ML 3 ML PEN SC SCH ×4 (09:42→20:24)
[2020-02-03] MEDS: DOCUSATE SODIUM/SENNA 50/8.6MG TAB PO SCH ×2 (11:43→20:39)
[2020-02-03] MEDS ORDERED: HEPARIN 100 UNIT/ML 5ML FLUSH FLUSH PRN (12:57)
--- NOTE | 2020-02-03 15:00 | Hospitalist Progress Note ---
Date of Service February 03, 2020 Assessment & Plan (1) Acute and chronic respiratory failure with hypoxia: Likely secondary to sepsis from UTI and bacteremia Chest x-ray with pulmonary vascular congestion Remains on small amount of supplemental O2 but is in no respiratory distress Treating sepsis as below for UTI and bacteremia I do not suspect pneumonia -DC doxycycline but will continue antibiotics as below for UTI and bacteremia - wean o2 as tolerated, does not wear any O2 at baseline - Flu swab negative (2) Fever: With sepsis present on admission with fever, tachycardia, hypoxia, and UTI now with gram-negative bacteremia Fevers are resolving Urine culture with gram-negative rods, blood cultures with 1 out of 2 gram- negative rods and 1 out of 2 gram-positive cocci which may be a contaminant -Continue Zosyn, Dapto given hip wound -Continue to follow all cultures and will repeat blood cultures to ensure sterility Overall improving (3) Septicemia: As above (4) UTI (urinary tract infection): With gram-negative rods -On Zosyn -Follow cultures With bacteremia as above (5) Surgical wound, non healing: Has a nonhealing wound over her prosthesis in the right hip for 17 years Has grown MRSA on a recent culture several weeks ago-unclear if this was treated Is typically on suppressive antibiotics with daily azithromycin which would not cover for MRSA -Continue daptomycin now as wound appeared erythematous and had more drainage from previous -Follow wound [id number] cocci on Gram stain so far -Consult ID-we will need guidance on continued preventative antibiotics moving forward given underlying prosthesis (6) Pneumonia: -Initially suspected as reviewed on CXR, but ruled out (7) Volume overload: - Pt appears euvolemic on exam, no JVD, legs without any edema, but difficult exam due to morbid obesity - pt uses lasix 40 mg BID at home-continue - Weight stable from time of discharge at last admission to now is 155.4- 155.9 kg (8) Afib: -Remains in sinus rhythm here -Continue to hold Coumadin since 02/01 for elevated INR - Cont amiodarone 200 mg QAM, metoprolol tartrate 12.5 mg Q12H - Follow daily INR, on admission =3.7 and now up to 4.2 -Continue telemetry monitoring (9) DM type 2 (diabetes mellitus, type 2): - ISS with accuchecks ACHS - Continue Lantus 15 U QAM, continue sitagliptin 50 mg daily - Hold metformin from home Hemoglobin A1c 7.6% from 01/2020 (10) Chronic joint pain: - Stable, continue voltaren gel topically (11) Anemia: - Chronic, however hemoglobin quite low at 8.2, normocytic -Check iron studies, B12, folate, and Hemoccult stool -Follow CBC (12) Morbid obesity with body mass index of 50 or higher: - BMI of 66 -Needs intensive weight loss management Is nonambulatory (13) Hypothyroid: - Continue levothyroxine 125 mcg TSH 1.64 here (14) Sleep apnea: - Chronic, does not wear O2 at baseline, does wear Nasal cpap ONLY, declines full face mask. (15) Elevated troponin: -Troponin slightly elevated troponin on 0.117/0.8/0.6, has not previously been elevated, -Likely secondary to myocardial demand ischemia from sepsis - No chest pain or concerns for ACS as seen on EKG (16) Sarcopenia: - Albumin decreased at 2.4 on admission, will start boost supplementation, QID, most important dose to be given HS (17) DVT prophylaxis: -coumadin, no scds or teds due to skin breakdown CODE: Dispo: From [facility], continued stay Admission and Anticipated Discharge Date Admission Date: February 02, 2020 Subjective Patient feeling better today. She was seen by wound care and had the wound washed out and redressed. Wound care [employer] reports that the wound looks much better than yesterday with less erythema. She had chest pain today that was substernal felt like heartburn, and lasted 5 seconds and went away on its own. Remains afebrile no further chills. Appetite is good. Denies shortness of breath but remains on O2. Blood cultures are growing gram-negative rods Telemetry with normal sinus rhythm with rates in the 60s to 70s Review of Systems Review of Systems: All systems reviewed & are unremarkable except as noted in HPI & below (Moved her bowels, no constipation, no nausea or vomiting) Physical Exam Constitutional: WD/WN, vitals as above + morbidly obese Eyes: + anicteric sclerae Neck: trachea midline, no thyromegaly Respiratory: normal respiratory effort Auscultation: + diminished lung soun ds (Due to body habitus); no crackles and no wheezes Cardiovascular: RRR, no murmur, no edema Chest (Breasts): Chest: normal inspection of chest Gastrointestinal (Abdomen): normal bowel sounds, soft, nontender, no hepatosplenomegaly Musculoskeletal: Extremities: extremities normal to inspection; no cyanosis and no clubbing Skin: no rashes, warm and dry + wound (Right hip with deep open wound 1 cm with bloody drainage, minimal surrounding erythema) Neurologic: moves all extremities and awake; no focal motor deficits Psychiatric: A+Ox3, euthymic affect Lymphatic: no lymphedema Results & Data Results & Data ([facility]) Vital Signs (Past 12 Hours) Vital Signs Temp Pulse Pulse Resp BP Pulse Ox 02/03/20 12:01 36.9 C 70 20 116/73 94 02/03/20 11:12 67 18 96 02/03/20 07:18 63 63 18 94 02/03/20 07:00 36.4 C L 67 20 114/60 90 02/03/20 04:41 76 02/03/20 04:36 36.9 C 68 20 100/64 91 02/03/20 03:47 83 15 94 Laboratory Results 02/03/20 02/03/20 02/03/20 Range/Units 20:20 16:31 11:22 WBC (4.8-10.8) K/uL RBC (4.2-5.4) M/uL Hgb (12.0-16.0) g/dL Hct (37-47) % MCV (80-100) fL MCH (25-34) pg MCHC (32-36) g/dL RDW Std Deviation (36.4-46.3) fL RDW Coeff of Mehnaz (11.5-14.5) % Plt Count (130-400) K/uL MPV (7.4-10.4) fL PT (9.0-12.0) Seconds INR (0.9-1.1) Sodium (136-145) mmol/L Potassium (3.5-5.1) mmol/L Chloride (98-107) mmol/L Carbon Dioxide (21-32) mmol/L Anion Gap (3-11) BUN (7-18) mg/dl Creatinine (0.6-1.2) mg/dl Est Cr Clr Drug Dosing ml/min Est GFR ( Amer) Est GFR (Non-Af Amer) BUN/Creatinine Ratio (10-20) Glucose (70-99) mg/dl POC Glucose 173 H 165 H 197 H (70-99) mg/dl Calcium (8.5-10.1) mg/dl Total Bilirubin (0.2-1) mg/dl AST (15-37) U/L ALT (12-78) U/L Alkaline Phosphatase (45-117) U/L Total Protein (6.4-8.2) gm/dl Albumin (3.4-5.0) gm/dl Globulin (2.5-4.0) gm/dl Albumin/Globulin Ratio (0.9-2) Coronavirus (PCR) COVID-19 Pt Symptomatic COVID-19 Source Nasopharyn COVID-19 PCR Sputum COVID-19 PCR SARS Virus RNA (PCR) SARS-CoV-2 RNA (RT-PCR) Bld Cult Staph aureus PCR (Negative) Blood Culture MRSA PCR (Negative) 02/03/20 02/03/20 02/03/20 Range/Units 07:53 06:49 06:49 WBC (4.8-10.8) K/uL RBC (4.2-5.4) M/uL Hgb (12.0-16.0) g/dL Hct (37-47) % MCV (80-100) fL MCH (25-34) pg MCHC (32-36) g/dL RDW Std Deviation (36.4-46.3) fL RDW Coeff of Mehnaz (11.5-14.5) % Plt Count (130-400) K/uL MPV (7.4-10.4) fL PT 41.2 H (9.0-12.0) Seconds INR 4.2 H (0.9-1.1) Sodium 135 L (136-145) mmol/L Potassium 3.9 (3.5-5.1) mmol/L Chloride 103 (98-107) mmol/L Carbon Dioxide 28 (21-32) mmol/L Anion Gap 4.0 (3-11) BUN 38 H (7-18) mg/dl Creatinine 1.44 H (0.6-1.2) mg/dl Est Cr Clr Drug Dosing 56.6 ml/min Est GFR ( Amer) 44.1 Est GFR (Non-Af Amer) 38.0 BUN/Creatinine Ratio 26.6 H (10-20) Glucose 137 H (70-99) mg/dl POC Glucose 160 H (70-99) mg/dl Calcium 8.6 (8.5-10.1) mg/dl Total Bilirubin 0.5 (0.2-1) mg/dl AST 23 (15-37) U/L ALT 22 (12-78) U/L Alkaline Phosphatase 75 (45-117) U/L Total Protein 6.4 (6.4-8.2) gm/dl Albumin 2.0 L (3.4-5.0) gm/dl Globulin 4.4 H (2.5-4.0) gm/dl Albumin/Globulin Ratio 0.5 L (0.9-2) Coronavirus (PCR) COVID-19 Pt Symptomatic COVID-19 Source Nasopharyn COVID-19 PCR Sputum COVID-19 PCR SARS Virus RNA (PCR) SARS-CoV-2 RNA (RT-PCR) Bld Cult Staph aureus PCR (Negative) Blood Culture MRSA PCR (Negative) 02/03/20 02/02/20 02/02/20 Range/Units 06:49 06:33 06:20 WBC 5.69 (4.8-10.8) K/uL RBC 3.02 L (4.2-5.4) M/uL Hgb 8.2 L (12.0-16.0) g/dL Hct 26.4 L (37-47) % MCV 87.4 (80-100) fL MCH 27.2 (25-34) pg MCHC 31.1 L (32-36) g/dL RDW Std Deviation 63.9 H (36.4-46.3) fL RDW Coeff of Mehnaz 20.1 H (11.5-14.5) % Plt Count 213 (130-400) K/uL MPV 10.2 (7.4-10.4) fL PT (9.0-12.0) Seconds INR (0.9-1.1) Sodium (136-145) mmol/L Potassium (3.5-5.1) mmol/L Chloride (98-107) mmol/L Carbon Dioxide (21-32) mmol/L Anion Gap (3-11) BUN (7-18) mg/dl Creatinine (0.6-1.2) mg/dl Est Cr Clr Drug Dosing ml/min Est GFR ( Amer) Est GFR (Non-Af Amer) BUN/Creatinine Ratio (10-20) Glucose (70-99) mg/dl POC Glucose (70-99) mg/dl Calcium (8.5-10.1) mg/dl Total Bilirubin (0.2-1) mg/dl AST (15-37) U/L ALT (12-78) U/L Alkaline Phosphatase (45-117) U/L Total Protein (6.4-8.2) gm/dl Albumin (3.4-5.0) gm/dl Globulin (2.5-4.0) gm/dl Albumin/Globulin Ratio (0.9-2) Coronavirus (PCR) COVID-19 Pt Symptomatic COVID-19 Source Nasopharyn COVID-19 PCR NOT DETECTED Sputum COVID-19 PCR Not Reportable SARS Virus RNA (PCR) SARS-CoV-2 RNA (RT-PCR) Bld Cult Staph aureus PCR Negative (Negative) Blood Culture MRSA PCR Negative (Negative) 02/02/20 Range/Units 06:20 WBC (4.8-10.8) K/uL RBC (4.2-5.4) M/uL Hgb (12.0-16.0) g/dL Hct (37-47) % MCV (80-100) fL MCH (25-34) pg MCHC (32-36) g/dL RDW Std Deviation (36.4-46.3) fL RDW Coeff of Mehnaz (11.5-14.5) % Plt Count (130-400) K/uL MPV (7.4-10.4) fL PT (9.0-12.0) Seconds INR (0.9-1.1) Sodium (136-145) mmol/L Potassium (3.5-5.1) mmol/L Chloride (98-107) mmol/L Carbon Dioxide (21-32) mmol/L Anion Gap (3-11) BUN (7-18) mg/dl Creatinine (0.6-1.2) mg/dl Est Cr Clr Drug Dosing ml/min Est GFR ( Amer) Est GFR (Non-Af Amer) BUN/Creatinine Ratio (10-20) Glucose (70-99) mg/dl POC Glucose (70-99) mg/dl Calcium (8.5-10.1) mg/dl Total Bilirubin (0.2-1) mg/dl AST (15-37) U/L ALT (12-78) U/L Alkaline Phosphatase (45-117) U/L Total Protein (6.4-8.2) gm/dl Albumin (3.4-5.0) gm/dl Globulin (2.5-4.0) gm/dl Albumin/Globulin Ratio (0.9-2) Coronavirus (PCR) Cancelled COVID-19 Pt Symptomatic Cancelled COVID-19 Source Cancelled Nasopharyn COVID-19 PCR Sputum COVID-19 PCR SARS Virus RNA (PCR) Cancelled SARS-CoV-2 RNA (RT-PCR) Cancelled Bld Cult Staph aureus PCR (Negative) Blood Culture MRSA PCR (Negative) PG Care Time/CCT Total # of Minutes Spent Total Time Spent with Patient: Total time spent is greater than 50% in coordination of care (as documented) at patient's floor/unit and/or counseling patient: Coding Level of Care Code 96775 Subseq Hosp Care Lvl 3 Diagnoses Acute and chronic respiratory failure with hypoxia J96.21 Fever R50.9 Septicemia A41.9 UTI (urinary tract infection) N39.0 Surgical wound, non healing T81.89XA Encounter type: initial encounter Pneumonia J18.9 Volume overload E87.70 Hypervolemia type: unspecified Afib I48.91 DM type 2 (diabetes mellitus, type 2) E11.9 Chronic joint pain M25.50; G89.29 Anemia D64.89 Anemia type: other cause Other causes of anemia: other cause, not classified Morbid obesity with body mass index of 50 or higher E66.01 Hypothyroid E03.9 Hypothyroidism type: unspecified Sleep apnea G47.33 Sleep apnea type: obstructive Elevated troponin R79.89 Sarcopenia M62.84 DVT prophylaxis Z29.9 (1) Sleep apnea Sleep apnea type: obstructive Qualified Code(s): G47.33 - Obstructive sleep apnea (adult) (pediatric) (2) Anemia Anemia type: other cause Other causes of anemia: other cause, not classified Qualified Code(s): D64.89 - Other specified anemias (3) Hypothyroid Hypothyroidism type: unspecified Qualified Code(s): E03.9 - Hypothyroidism, unspecified (4) Volume overload Hypervolemia type: unspecified Qualified Code(s): E87.70 - Fluid overload, unspecified (5) Surgical wound, non healing Encounter type: initial encounter Qualified Code(s): T81.89XA - Other complications of procedures, not elsewhere classified, initial encounter
--- NOTE | 2020-02-03 15:13 | Wound Consultation ---
Date of Consultation February 03, 2020 Assessment & Plan (1) Surgical wound, non healing: Chronic, non-healing surgical wound in the setting of type II DM, morbid obesity, and sarcopenia. Wound appears to have deteriorated from last admission with increased erythema of the periwound noted. Wound culture is pending. Topical Xylocaine applied to the wound. With the patient's permission, the wound was debrided of slough using a curette. Minimal bleeding occurred, and was controlled pressure and silver nitrate. Patient tolerated the procedure well. This represents a non-excisional debridement of less than 20 cm. Wound will be dressed with Aquacel Ag with antifungal cream to the periwound. Wound culture repeated today after debridement. Continue current antibiotics pending sensitivities. Patient would benefit from an ID consult as she has been on chronic antibiotics for several years for this nonhealing wound. (2) Morbid obesity with body mass index of 50 or higher: (3) Sarcopenia: Patient's decreased albumin and morbid obesity are factors in her chronic non-healing wound. Agree with Boost supplementation as this will aid in wound healing. (4) Chest pain at rest: I did notify Dr. Edmondson of the patient's c/o chest pain x 1 hour. Patient seen and examined with Dr. Edmondson this afternoon, and reported resolution of the pain. Patient remains on electronic device monitor on PCU. Further evaluation as per Dr. Edmondson. Thanks for the consult. Will be happy to follow along with the patient as needed. History of Present Illness Reason for Consultation: non-healing surgical wound of the right thigh/hip Attending Physician: Katja Edmondson MD History of Present Illness 64-year-old female resident of [facility] admitted to [facility] for fever and bacteremia. Source ? urine vs PNA vs wound infection. Patient has a hx of a non-healing surgical wound to the right hip x 15 years which has repeatedly opened and closed since surgery. Patient was last seen at the wound center on 01-05-20. Punch biopsy was noted to be negative for malignancy. She was initially referred to [facility] for further input of possibly infected hardware, but this was deferred to a tertiary facility for further evaluation and management. She has not yet seen a tertiary facility. Unfortunately she is too large for either an MRI or CT scan of the hip in this area. She was previously following with Dr. Carpenter from ID for chronic abx, and was noted to ? be on azithromycin on admission. She last saw Dr. French on 12-06-19 and was placed on amoxicillin at that time. Wound culture from admission 2 weeks ago was noted to be positive for MRSA and bacteroides thetaiotaomicron. She was admitted for influenza A at that time, and was discharged on 10 days of doxy and Flagyl. She has a wound culture pending from admission yesterday as well. Blood cultures are preliminarily positive for gram negative bacilli. PMH includes septicemia, type 2 diabetes (last Hgb A1C of 7.4%), A. fib/flutter, chronic respiratory failure with hypoxia, hypertension, chronic anticoagulation on Coumadin, chronic joint pain, hypothyroidism, history of MRSA, KHALIDA, BMI of 64.9 and likely obesity hypoventilation syndrome. Patient c/o chest pain x 1 hour during our visit today. No further complaints. She denies any pain radiating to her arm or jaw. Denies n/v or dizziness. She feels the pain may be r/t indigestion. Allergies Allergy/AdvReac Type Severity Reaction Status Date / Time Iodinated Contrast Media Allergy Intermediate HIVES Verified 02/02/20 05:59 latex Allergy Unknown LOW LEVEL Verified 02/02/20 05:59 LATEX ALLERGY pineapple Allergy Unknown Unknown Verified 02/02/20 05:[address] HICKS Verified 02/02/20 05:59 ASKED THAT ALLERGY BE ADDED 07/31/08 Sulfa (Sulfonamide Allergy Unknown HIVES Verified 02/02/20 05:59 Antibiotics) vancomycin Allergy Unknown HIVES, GI Verified 02/02/20 05:59 UPSET Home Medications Home Medications Medication Instructions Recorded Confirmed Type aspirin 81 mg PO DAILY 08/02/18 02/02/20 History atorvastatin 40 mg PO HS 08/02/18 02/02/20 History fluticasone propionate 2 spray INTRANASAL HS 08/02/18 02/02/20 History gabapentin 600 mg PO TID 08/02/18 02/02/20 History magnesium oxide 400 mg PO QAM 08/02/18 02/02/20 History multivitamin with minerals 1 tab PO QAM 08/02/18 02/02/20 History [Multiple Vitamin-Minerals] Lactinex 1 tab PO DAILY 10/13/19 02/02/20 History albuterol sulfate [Ventolin HFA] 2 puff INHALATION Q4 PRN 10/13/19 02/02/20 History montelukast 10 mg PO QAM 10/13/19 02/02/20 History sennosides-docusate sodium 1 tab-cap PO BID 10/13/19 02/02/20 History [Senokot-S] sitagliptin 50 mg PO DAILY #30 tab 11/01/19 02/02/20 Rx acetaminophen 650 mg PO Q6H PRN MDD 3gm/24hr 11/18/19 02/02/20 History amiodarone 200 mg PO QAM 11/18/19 02/02/20 History fluticasone propion-salmeterol 1 inh INHALATION BID 11/18/19 02/02/20 History [Advair Diskus] bisacodyl [Dulcolax (bisacodyl)] 10 mg NJ DAILY PRN 01/12/20 02/02/20 History clotrimazole 1 applic TOPICAL Q8H 01/12/20 02/02/20 History levothyroxine 125 mcg PO DAILY 01/12/20 02/02/20 History magnesium hydroxide [Milk of 30 ml PO DAILY PRN 01/12/20 02/02/20 History Magnesia] metformin 500 mg PO BID 01/12/20 02/02/20 History diclofenac sodium [Voltaren] 4 g EXT QID #1 tube 01/20/20 02/02/20 Rx ferrous sulfate 325 mg PO BID #0 tab 01/20/20 02/02/20 Rx furosemide [Lasix] 40 mg PO BID #0 tab 01/20/20 02/02/20 Rx insulin glargine [Lantus Solostar 15 unit SC DAILY #1 pen 01/20/20 02/02/20 Rx U-100 Insulin] insulin lispro [Humalog U-100 1 sliding scale dose SUBCUT 01/20/20 02/02/20 Rx Insulin] USEASDIRECTD PRN #0 ml ipratropium-albuterol 3 ml INHALATION QID #1 box 01/20/20 02/02/20 Rx metoprolol tartrate 12.5 mg PO Q12H #60 tab 01/20/20 02/02/20 Rx acetaminophen 650 mg PO Q6 PRN MDD 3gm/24hr 02/02/20 02/02/20 History ascorbic acid (vitamin C) 500 mg PO BID 02/02/20 02/02/20 History azithromycin 250 mg PO DAILY 02/02/20 02/02/20 History ipratropium-albuterol 3 ml INHALATION .EVERY 2 HOURS PRN 02/02/20 02/02/20 History warfarin 5 mg PO DAILY 02/02/20 02/02/20 History Patient History Medical History (Updated 02/03/20 @ 15:09 by JIMI Long) A-fib Acute and chronic respiratory failure with hypoxia Acute kidney failure Anemia Asthma (Chronic) CHF exacerbation (Acute) Chronic joint pain (Acute) CVA (cerebral vascular accident) (Acute) DM type 2 (diabetes mellitus, type 2) (Chronic) History of left shoulder replacement (Acute) Hypertension Hypothyroid Left cervical radiculopathy (Acute) Morbid obesity with body mass index of 50 or higher Osteoarthritis (Chronic) Pneumonia Proteinuria Respiratory failure with hypoxia and hypercapnia Sleep apnea "on cpap" Stroke-like symptoms Volume overload (Acute) Wound cellulitis Surgical History Status post bilateral total hip replacement (Chronic) Family History Other Family history non-contributory Social History Preferred Language: French Communication Ability: Effective Splitting Machine Feeder Required: No Beliefs That Will Affect Care: None marital status: Single Current Living Situation: Correction Current Living Situation Comment: Sara Feels Safe at Home: Yes Safety Concerns: Feels Safe At This Time Smoking Status: Never smoker Second Hand Exposure: No ; Hx Alcohol Use: No Hx Substance Use: No Review of Systems Constitutional: no fever and no chills Eyes: no worsening vision Ear, Nose, Mouth, Throat: no dizziness Respiratory: no cough and no dyspnea Cardiovascular: + chest pain (x 1 hour; pain is in the center of her chest, and does not radiate to the arm or jaw) Gastrointestinal: no abdominal pain, no nausea and no vomiting Psychiatric: no confusion Physical Exam Physical Exam: Temp Pulse Resp BP Pulse Ox 36.9 C 70 20 116/73 94 02/03/20 12:01 02/03/20 12:01 02/03/20 12:01 02/03/20 12:01 02/03/20 12:01 Patient is afebrile. Vital signs stable. See nursing notes for wound measurements. Wound base is erythematous with slough noted. No odor present. Moderate amount of bloody drainage is noted. Periwound is erythematous. Constitutional: + acute distress and + obese (morbidly) ENMT: Ears: no hearing impairment Neck: normal visual inspection Respiratory: normal respiratory effort, lungs clear to auscultation Cardiovascular: RRR, no murmur, no edema Gastrointestinal (Abdomen): Inspection/Auscultation: normal bowel sounds Percussion/Palpation: abdomen soft; abdomen nontender Psychiatric: A+Ox3, euthymic affect Results & Data Vital Signs (Past 12 Hours) Vital Signs Temp Pulse Pulse Resp BP Pulse Ox 02/03/20 12:01 36.9 C 70 20 116/73 94 02/03/20 11:12 67 18 96 02/03/20 07:18 63 63 18 94 02/03/20 07:00 36.4 C L 67 20 114/60 90 02/03/20 04:41 76 02/03/20 04:36 36.9 C 68 20 100/64 91 02/03/20 03:47 83 15 94 (1) Surgical wound, non healing Encounter type: initial encounter Qualified Code(s): T81.89XA - Other complications of procedures, not elsewhere classified, initial encounter
[2020-02-03] MEDS ORDERED: WARFARIN SOD 5 MG TAB PO SCH (16:00)
--- NOTE | 2020-02-03 16:01 | Wound Consultation ---
Date of Consultation February 03, 2020 Assessment & Plan (1) Surgical wound, non healing: Chronic, non-healing surgical wound in the setting of type II DM, morbid obesity, and sarcopenia. Wound appears to have deteriorated from last admission with increased erythema of the periwound noted. Wound culture is pending. Topical Xylocaine applied to the wound. With the patient's permission, the wound was debrided of slough using a curette. Minimal bleeding occurred, and was controlled pressure and silver nitrate. Patient tolerated the procedure well. This represents a non-excisional debridement of less than 20 cm. Wound will be dressed with Aquacel Ag with antifungal cream to the periwound. Wound culture repeated today after debridement. Continue current antibiotics pending sensitivities. Patient would benefit from an ID consult as she has been on chronic antibiotics for several years for this nonhealing wound. (2) Morbid obesity with body mass index of 50 or higher: (3) Sarcopenia: Patient's decreased albumin and morbid obesity are factors in her chronic non-healing wound. Agree with Boost supplementation as this will aid in wound healing. (4) Chest pain at rest: I did notify Dr. Edmondson of the patient's c/o chest pain x 1 hour. Patient seen and examined with Dr. Edmondson this afternoon, and reported resolution of the pain. 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 Further evaluation as per Dr. Edmondson. Thanks for the consult. Will be happy to follow along with the patient as needed. History of Present Illness Reason for Consultation: non-healing surgical wound of the right hip Attending Physician: Katja Edmondson MD History of Present Illness 64-year-old female resident of [facility] admitted to [facility] for fever and bacteremia. Source ? urine vs PNA vs wound infection. Patient has a hx of a non-healing surgical wound to the right hip x 15 years which has repeatedly opened and closed since surgery. Patient was last seen at the wound center on 01-05-20. Punch biopsy was noted to be negative for malignancy. She was initially referred to [facility] for further input of possibly infected hardware, but this was deferred to a tertiary facility for further evaluation and management. She has not yet seen a tertiary facility. Unfortunately she is too large for either an MRI or CT scan of the hip in this area. She was previously following with Dr. Carpenter from ID for chronic abx, and was noted to ? be on azithromycin on admission. She last saw Dr. French on 12-06-19 and was placed on amoxicillin at that time. Wound culture from admission 2 weeks ago was noted to be positive for MRSA and bacteroides thetaiotaomicron. She was admitted for influenza A at that time, and was discharged on 10 days of doxy and Flagyl. She has a wound culture pending from admission yesterday as well. Blood cultures are preliminarily positive for gram negative bacilli. PMH includes septicemia, type 2 diabetes (last Hgb A1C of 7.4%), A. fib/flutter, chronic respiratory failure with hypoxia, hypertension, chronic anticoagulation on Coumadin, chronic joint pain, hypothyroidism, history of MRSA, KHALIDA, BMI of 64.9 and likely obesity hypoventilation syndrome. Patient c/o chest pain x 1 hour during our visit today. No further complaints. She denies any pain radiating to her arm or jaw. Denies n/v or dizziness. She feels the pain may be r/t indigestion. Allergies Allergy/AdvReac Type Severity Reaction Status Date / Time Iodinated Contrast Media Allergy Intermediate HIVES Verified 02/02/20 05:59 latex Allergy Unknown LOW LEVEL Verified 02/02/20 05:59 LATEX ALLERGY pineapple Allergy Unknown Unknown Verified 02/02/20 05:[address] HICKS Verified 02/02/20 05:59 ASKED THAT ALLERGY BE ADDED 07/31/08 Sulfa (Sulfonamide Allergy Unknown HIVES Verified 02/02/20 05:59 Antibiotics) vancomycin Allergy Unknown HIVES, GI Verified 02/02/20 05:59 UPSET Home Medications Home Medications Medication Instructions Recorded Confirmed Type aspirin 81 mg PO DAILY 08/02/18 02/02/20 History atorvastatin 40 mg PO HS 08/02/18 02/02/20 History fluticasone propionate 2 spray INTRANASAL HS 08/02/18 02/02/20 History gabapentin 600 mg PO TID 08/02/18 02/02/20 History magnesium oxide 400 mg PO QAM 08/02/18 02/02/20 History multivitamin with minerals 1 tab PO QAM 08/02/18 02/02/20 History [Multiple Vitamin-Minerals] Lactinex 1 tab PO DAILY 10/13/19 02/02/20 History albuterol sulfate [Ventolin HFA] 2 puff INHALATION Q4 PRN 10/13/19 02/02/20 History montelukast 10 mg PO QAM 10/13/19 02/02/20 History sennosides-docusate sodium 1 tab-cap PO BID 10/13/19 02/02/20 History [Senokot-S] sitagliptin 50 mg PO DAILY #30 tab 11/01/19 02/02/20 Rx acetaminophen 650 mg PO Q6H PRN MDD 3gm/24hr 11/18/19 02/02/20 History amiodarone 200 mg PO QAM 11/18/19 02/02/20 History fluticasone propion-salmeterol 1 inh INHALATION BID 11/18/19 02/02/20 History [Advair Diskus] bisacodyl [Dulcolax (bisacodyl)] 10 mg MT DAILY PRN 01/12/20 02/02/20 History clotrimazole 1 applic TOPICAL Q8H 01/12/20 02/02/20 History levothyroxine 125 mcg PO DAILY 01/12/20 02/02/20 History magnesium hydroxide [Milk of 30 ml PO DAILY PRN 01/12/20 02/02/20 History Magnesia] metformin 500 mg PO BID 01/12/20 02/02/20 History diclofenac sodium [Voltaren] 4 g EXT QID #1 tube 01/20/20 02/02/20 Rx ferrous sulfate 325 mg PO BID #0 tab 01/20/20 02/02/20 Rx furosemide [Lasix] 40 mg PO BID #0 tab 01/20/20 02/02/20 Rx insulin glargine [Lantus Solostar 15 unit SC DAILY #1 pen 01/20/20 02/02/20 Rx U-100 Insulin] insulin lispro [Humalog U-100 1 sliding scale dose SUBCUT 01/20/20 02/02/20 Rx Insulin] USEASDIRECTD PRN #0 ml ipratropium-albuterol 3 ml INHALATION QID #1 box 01/20/20 02/02/20 Rx metoprolol tartrate 12.5 mg PO Q12H #60 tab 01/20/20 02/02/20 Rx acetaminophen 650 mg PO Q6 PRN MDD 3gm/24hr 02/02/20 02/02/20 History ascorbic acid (vitamin C) 500 mg PO BID 02/02/20 02/02/20 History azithromycin 250 mg PO DAILY 02/02/20 02/02/20 History ipratropium-albuterol 3 ml INHALATION .EVERY 2 HOURS PRN 02/02/20 02/02/20 History warfarin 5 mg PO DAILY 02/02/20 02/02/20 History Patient History Medical History (Updated 02/03/20 @ 16:00 by JIMI Long) A-fib Acute and chronic respiratory failure with hypoxia Acute kidney failure Anemia Asthma (Chronic) CHF exacerbation (Acute) Chronic joint pain (Acute) CVA (cerebral vascular accident) (Acute) DM type 2 (diabetes mellitus, type 2) (Chronic) History of left shoulder replacement (Acute) Hypertension Hypothyroid Left cervical radiculopathy (Acute) Morbid obesity with body mass index of 50 or higher (Chronic) Osteoarthritis (Chronic) Pneumonia Proteinuria Respiratory failure with hypoxia and hypercapnia Sleep apnea "on cpap" Stroke-like symptoms Volume overload (Acute) Wound cellulitis Surgical History Status post bilateral total hip replacement (Chronic) Family History Other Family history non-contributory Social History Preferred Language: Sinhala Communication Ability: Effective Laboratory Technologist Required: No Beliefs That Will Affect Care: None marital status: Single Current Living Situation: Residential Current Living Situation Comment: Sara Feels Safe at Home: Yes Safety Concerns: Feels Safe At This Time Smoking Status: Never smoker Second Hand Exposure: No ; Hx Alcohol Use: No Hx Substance Use: No Review of Systems Constitutional: no fever and no chills Eyes: no worsening vision Ear, Nose, Mouth, Throat: no dizziness Respiratory: no cough and no dyspnea Cardiovascular: + chest pain (x 1 hour; pain is in the center of her chest, and does not radiate to the arm or jaw) Gastrointestinal: no abdominal pain, no nausea and no vomiting Psychiatric: no confusion Physical Exam Physical Exam: Temp Pulse Resp BP Pulse Ox 36.9 C 73 18 116/73 93 02/03/20 12:01 02/03/20 15:01 02/03/20 15:01 02/03/20 12:01 02/03/20 15:01 Patient is afebrile. Vital signs stable. See nursing notes for wound measurements. Wound base is erythematous with slough noted. No odor present. Moderate amount of bloody drainage is noted. Periwound is erythematous. Constitutional: + acute distress and + obese (morbidly) ENMT: Ears: no hearing impairment Neck: normal visual inspection Respiratory: normal respiratory effort, lungs clear to auscultation Cardiovascular: RRR, no murmur, no edema Gastrointestinal (Abdomen): Inspection/Auscultation: normal bowel sounds Percussion/Palpation: abdomen soft; abdomen nontender Psychiatric: A+Ox3, euthymic affect Results & Data Vital Signs (Past 12 Hours) Vital Signs Temp Pulse Pulse Resp BP Pulse Ox 02/03/20 15:01 73 18 93 02/03/20 12:01 36.9 C 70 20 116/73 94 02/03/20 11:12 67 18 96 02/03/20 07:18 63 63 18 94 02/03/20 07:00 36.4 C L 67 20 114/60 90 02/03/20 04:41 76 02/03/20 04:36 36.9 C 68 20 100/64 91 PG Care Time/CCT Total # of Minutes Spent Total Time Spent with Patient: Total time spent is greater than 50% in coordination of care (as documented) at patient's floor/unit and/or counseling patient: Coding Level of Care Code 53415 Initial Inpt Care Lvl 3 Diagnoses Surgical wound, non healing T81.89XA Encounter type: initial encounter Morbid obesity with body mass index of 50 or higher E66.01 Sarcopenia M62.84 Chest pain at rest R07.9 Comment Non-excisional debridement of less than 20 cm. (1) Surgical wound, non healing Encounter type: initial encounter Qualified Code(s): T81.89XA - Other complications of procedures, not elsewhere classified, initial encounter
[2020-02-03] MEDS: FLUTICASONE PROPIONATE NA SPR 16 GM BTL SCH (20:22)
[2020-02-03] MEDS: ACETAMINOPHEN 325 MG TAB PO PRN (20:39)
[2020-02-04] MEDS: PIPERACILLIN/TAZOBACTAM 4.5 GM in DEXTROSE 5% 100 ML IV SCH ×3 (03:45→20:44)
[2020-02-04] MEDS: CLOTRIMAZOLE 1% CR 15 GM TUBE TOP SCH ×3 (03:48→20:21)
[2020-02-04] MEDS: LEVOTHYROXINE SODIUM 125 MCG TABLET PO SCH (05:47)
[2020-02-04 06:35] LABS: Hematocrit (blood only) 27.1 % (37-47); Hemoglobin 8.3 g/dL (12.0-16.0); Mean Corpuscular Hgb Conc 30.6 g/dL (32-36); Mean Corpuscular Volume 88.3 fL (80-100); Mean Platelet Volume 9.7 fL (7.4-10.4); Platelet Count 216 K/uL (130-400); RDW Coefficient of Variation 19.7 % (11.5-14.5); RDW Standard Deviation 63.6 fL (36.4-46.3); Red Blood Count 3.07 M/uL (4.2-5.4); White Blood Count 4.18 K/uL (4.8-10.8)
[2020-02-04 06:45] LABS: INR 3.4 (0.9-1.1)
[2020-02-04] MEDS: ALBUT/IPRATROP 3MG/0.5MG NEB 3 ML VIAL INH SCH ×4 (07:13→19:09)
[2020-02-04 07:14] LABS: Est GFR (African American) 45.2; Potassium 3.5 mmol/L (3.5-5.1)
[2020-02-04 07:15] LABS: BUN Creatinine Ratio 25.3 (10-20); Calcium 8.8 mg/dl (8.5-10.1); Creatinine Clr Calc Pharmacy 56.9 ml/min; Magnesium 2.3 mg/dl (1.8-2.4)
[2020-02-04 07:18] LABS: Albumin Globulin Ratio 0.4 (0.9-2); Bilirubin,Total 0.5 mg/dl (0.2-1); Ferritin 152.6 ng/ml (8-388); Globulin 4.5 gm/dl (2.5-4.0); Total Protein 6.5 gm/dl (6.4-8.2)
[2020-02-04] MEDS: CEROVITE ADV FORMULA TAB PO SCH (08:40)
[2020-02-04] MEDS: METOPROLOL TARTRATE 25 MG TAB PO SCH ×2 (08:40→20:41)
[2020-02-04] MEDS: AMIODARONE 200 MG TAB PO SCH (08:41)
[2020-02-04] MEDS: GABAPENTIN 600 MG TAB PO SCH ×3 (08:41→20:42)
[2020-02-04] MEDS: LACTOBACILLUS ACIDOPHILUS (FLORANEX) TAB PO SCH (08:41)
[2020-02-04] MEDS: FUROSEMIDE 40 MG TAB PO SCH ×2 (08:41→20:42)
[2020-02-04] MEDS: MAGNESIUM OXIDE 400 MG TAB PO SCH (08:41)
[2020-02-04] MEDS: ASCORBIC ACID 500 MG TAB PO SCH ×2 (08:42→20:42)
[2020-02-04] MEDS: ASPIRIN 81 MG ECTAB PO SCH (08:42)
[2020-02-04] MEDS: FERROUS SULFATE 325 MG TAB PO SCH ×2 (08:42→20:42)
[2020-02-04] MEDS: MONTELUKAST SODIUM 10 MG TABLET PO SCH (08:43)
[2020-02-04] MEDS: IPRATROPIUM BROMIDE/ALBUTEROL respimat INH INH SCH ×4 (08:43→20:41)
[2020-02-04] MEDS: FLUTICASONE/VILANTEROL 200/25MCG 14 PUFFS/INHALER INH SCH (08:43)
[2020-02-04] MEDS: SITAGLIPTIN PHOSPHATE 25 MG TAB PO SCH (08:44)
[2020-02-04] MEDS: DICLOFENAC SOD 1% GEL 100 GM TUBE EXT SCH ×4 (08:44→20:43)
[2020-02-04] MEDS: INSULIN ASPART 100 UNITS/ML 3 ML PEN SC SCH ×4 (08:47→20:40)
[2020-02-04] MEDS: INSULIN GLARGINE SOLOSTAR 100 UNITS/ML 3 ML PEN SC SCH (08:54)
[2020-02-04 09:18] LABS: Folate (Folic Acid) 19.13 ng/ml (>5.38)
--- NOTE | 2020-02-04 11:04 | Hospitalist Progress Note ---
Date of Service February 04, 2020 Assessment & Plan (1) Acute and chronic respiratory failure with hypoxia: Likely secondary to sepsis from UTI and bacteremia Chest x-ray with pulmonary vascular congestion Remains on small amount of supplemental O2 but is in no respiratory distress Treating sepsis as below for UTI and bacteremia I do not suspect pneumonia -Doxycycline has been discontinued, patient remains on daptomycin and Zosyn. (2) Fever: With sepsis present on admission with fever, tachycardia, hypoxia, and UTI now with gram-negative bacteremia Fevers are resolving Urine culture with gram-negative rods, blood cultures with 1 out of 2 gram- negative rods and 1 out of 2 gram-positive cocci which may be a contaminant -Continue Zosyn, Dapto given hip wound. So far has been negative for MSSA and MRSA per PCR. -Repeat blood cultures drawn yesterday, still pending. If negative for gram positive cocci, I will discontinue daptomycin. - Continue Zosyn for ESBL E. coli found in urine and blood. (3) UTI (urinary tract infection): With ESBL E. coli, sensitive to Zosyn -Continue IV Zosyn as noted -Follow cultures, blood cultures drawn yesterday as noted above (4) Surgical wound, non healing: Has a nonhealing wound over her prosthesis in the right hip for 17 years Has grown MRSA on a recent culture several weeks ago-unclear if this was treated Is typically on suppressive antibiotics with daily azithromycin which would not cover for MRSA -Continue daptomycin now as wound appeared erythematous and had more drainage from previous -Follow wound [id number] cocci on Gram stain so far -Infectious disease consulted, has not yet been seen. Patient is also been followed by wound care. (5) Pneumonia: -Initially suspected as reviewed on CXR, but ruled out (6) Volume overload: - Pt appears euvolemic on exam, no JVD, legs without any edema, but diff icult exam due to morbid obesity - pt uses lasix 40 mg BID at home-continue - Weight stable from time of discharge at last admission to now is 155.4- 155.9 kg (7) Afib: -Remains in sinus rhythm here -Continue to hold Coumadin since 02/01 for elevated INR - Cont amiodarone 200 mg QAM, metoprolol tartrate 12.5 mg Q12H - Follow daily INR, on admission = INR is still supratherapeutic at 3.4 -Continue telemetry monitoring (8) DM type 2 (diabetes mellitus, type 2): - ISS with accuchecks ACHS - Continue Lantus 15 U QAM, continue sitagliptin 50 mg daily - Hold metformin from home Hemoglobin A1c 7.6% from 01/2020 (9) Chronic joint pain: - Stable, continue voltaren gel topically (10) Anemia: - Chronic, however hemoglobin quite low at 8.2, normocytic -Check iron studies, B12, folate, and Hemoccult stool -Follow CBC (11) Morbid obesity with body mass index of 50 or higher: - BMI of 66 -Needs intensive weight loss management Is nonambulatory (12) Hypothyroid: - Continue levothyroxine 125 mcg TSH 1.64 here (13) Sleep apnea: - Chronic, does not wear O2 at baseline, does wear Nasal cpap ONLY, declines full face mask. (14) Elevated troponin: -Troponin slightly elevated troponin on 0.117/0.8/0.6, has not previously been elevated, -Likely secondary to myocardial demand ischemia from sepsis - No chest pain or concerns for ACS as seen on EKG (15) DVT prophylaxis: -coumadin, no scds or teds due to skin breakdown CODE: Dispo: From [facility], continued stay Admission and Anticipated Discharge Date Admission Date: February 02, 2020 Subjective Patient awake and alert today. She is complaining of some right knee pain but otherwise is in no distress. She is remained afebrile with stable vital signs. She does tell me she continues to have a cough with minimal production but does not appear to be short of breath. She is on 2 L nasal cannula with an O2 sat of 95% on monitor. Physical Exam Constitutional: + obese and cooperative; no acute distress Neck: trachea midline, no thyromegaly Respiratory: normal respiratory effort Auscultation: lungs clear to auscultation bilaterally; no crackles, no rales, no rhonchi and no wheezes Limited secondary to habitus but sounds clear Cardiovascular: Rate/Rhythm: regular rate and regular rhythm Heart Sounds: normal S1 and normal S2 Gastrointestinal (Abdomen): Inspection/Auscultation: abdomen normal to inspection Percussion/Palpation: abdomen soft; abdomen nontender, no guarding, abdomen not rigid and no hepatosplenomegaly Morbidly obese Musculoskeletal: Right thigh wound dressed, did not disturb further. No significant findings right knee, no effusion, induration, or erythema. Skin: no rashes, warm and dry Results & Data Results & Data ([facility]) Vital Signs (Past 12 Hours) Vital Signs Temp Pulse Pulse Resp BP BP Pulse Ox 02/04/20 07:13 60 60 18 93 02/04/20 07:06 36.5 C 58 L 20 119/70 94 02/04/20 04:02 64 18 90 02/04/20 03:54 36.7 C 62 20 115/77 90 02/04/20 00:02 70 02/03/20 23:35 37.4 C 66 19 105/69 94 02/03/20 23:30 75 18 94 Laboratory Results WBCs of 4.1, hemoglobin 8.3, hematocrit 27.1. Platelets of 216. INR is 3.4, down from 4.2 yesterday. Sodium 136, potassium 3.5, chloride 101, carbon dioxide 20. BUN 36 with a creatinine 1.41. Glucose 139. Iron is 45 with a TIBC of 208 and a transferrin 173. Patient's COVID19 nasal swab was negative on 02/01. Blood culture PCR for staph and MRSA were negative as well. Diagnostic Findings XR chest 1V portable CLINICAL HISTORY: 64 years-old Female presenting with SOB, fever. TECHNIQUE: Portable upright AP view of the chest was obtained. COMPARISON: 01/17/2020. FINDINGS: Right subclavian Mediport terminates at the superior cavoatrial junction. Atherosclerosis of the aortic arch. Cardiac silhouette mildly enlarged. Mild pulmonary vascular prominence. Significant interstitial prominence, which is worsened from prior exam. Diffuse added density of the lungs. Patchy bandlike opacities and added density at the lung bases. Underlying trace left pleural effusion may be present. No pneumothorax. Left shoulder arthroplasty. Degenerative changes of the right glenohumeral joint. Upper abdomen normal. IMPRESSION: 1. Cardiomegaly with volume overload and congestive change. Mild pulmonary edema is also suspected. Underlying parenchymal infiltrates/pneumonia is not excluded. 2. Suspected trace left pleural effusion. PG Care Time/CCT Total # of Minutes Spent Total Time Spent with Patient: Total time spent is greater than 50% in coordination of care (as documented) at patient's floor/unit and/or counseling patient: Coding Level of Care Code 50705 Subseq Hosp Care Lvl 2 Diagnoses Acute and chronic respiratory failure with hypoxia J96.21 Fever R50.9 UTI (urinary tract infection) N39.0 Surgical wound, non healing T81.89XA Encounter type: initial encounter Pneumonia J18.9 Volume overload E87.70 Hypervolemia type: unspecified Afib I48.91 DM type 2 (diabetes mellitus, type 2) E11.9 Chronic joint pain M25.50; G89.29 Anemia D64.89 Anemia type: other cause Other causes of anemia: other cause, not classified Morbid obesity with body mass index of 50 or higher E66.01 Hypothyroid E03.9 Hypothyroidism type: unspecified Sleep apnea G47.33 Sleep apnea type: obstructive Elevated troponin R79.89 DVT prophylaxis Z29.9 (1) Surgical wound, non healing Encounter type: initial encounter Qualified Code(s): T81.89XA - Other complications of procedures, not elsewhere classified, initial encounter (2) Volume overload Hypervolemia type: unspecified Qualified Code(s): E87.70 - Fluid overload, unspecified (3) Anemia Anemia type: other cause Other causes of anemia: other cause, not classified Qualified Code(s): D64.89 - Other specified anemias (4) Hypothyroid Hypothyroidism type: unspecified Qualified Code(s): E03.9 - Hypothyroidism, unspecified (5) Sleep apnea Sleep apnea type: obstructive Qualified Code(s): G47.33 - Obstructive sleep apnea (adult) (pediatric)
--- NOTE | 2020-02-04 13:14 | Infectious Disease Consult ---
Date of Consultation February 04, 2020 Assessment & Plan (1) Septicemia: continue current abx, follow cultures, needs repeat blood cultures. (2) UTI (urinary tract infection): History of Present Illness Attending Physician: Gerardo Barajas DO pt admitted on 02/01. from [facility] with fevers. recent admission for flu. placed on zosyn and dapto, tolerating well. afebrile since admssion. UA in ER >30 wbc, 4+ bacteria, urine and blood culture growing ESBL+ E. coli, and gpc in 1/2 sets. isolate senisitive to zosyn. has h/o right hip wound, follows at wound center for this, last ID visit 12/06 was on amox at that time. wound eval done, growing gnr, final pending. she is eating lunch on my exam. she was placed in COVID isolation but states she is now out, ppe still at room enternce, she denies cough, sob, cp, no travel, no know exposure. wbc 4, creat 1.4. CXR negative. no repeat cultures done. hip culture pending. she states overall she is feeling better. no abd pain, no n/v/d Allergies Allergy/AdvReac Type Severity Reaction Status Date / Time Iodinated Contrast Media Allergy Intermediate HIVES Verified 02/02/20 05:59 latex Allergy Unknown LOW LEVEL Verified 02/02/20 05:59 LATEX ALLERGY pineapple Allergy Unknown Unknown Verified 02/02/20 05:[address] HCIKS Verified 02/02/20 05:59 ASKED THAT ALLERGY BE ADDED 07/31/08 Sulfa (Sulfonamide Allergy Unknown HIVES Verified 02/02/20 05:59 Antibiotics) vancomycin Allergy Unknown HIVES, GI Verified 02/02/20 05:59 UPSET Home Medications Home Medications Medication Instructions Recorded Confirmed Type aspirin 81 mg PO DAILY 08/02/18 02/02/20 History atorvastatin 40 mg PO HS 08/02/18 02/02/20 History fluticasone propionate 2 spray INTRANASAL HS 08/02/18 02/02/20 History gabapentin 600 mg PO TID 08/02/18 02/02/20 History magnesium oxide 400 mg PO QAM 08/02/18 02/02/20 History multivitamin with minerals 1 tab PO QAM 08/02/18 02/02/20 History [Multiple Vitamin-Minerals] Lactinex 1 tab PO DAILY 10/13/19 02/02/20 History albuterol sulfate [Ventolin HFA] 2 puff INHALATION Q4 PRN 10/13/19 02/02/20 History montelukast 10 mg PO QAM 10/13/19 02/02/20 History sennosides-docusate sodium 1 tab-cap PO BID 10/13/19 02/02/20 History [Senokot-S] sitagliptin 50 mg PO DAILY #30 tab 11/01/19 02/02/20 Rx acetaminophen 650 mg PO Q6H PRN MDD 3gm/24hr 11/18/19 02/02/20 History amiodarone 200 mg PO QAM 11/18/19 02/02/20 History fluticasone propion-salmeterol 1 inh INHALATION BID 11/18/19 02/02/20 History [Advair Diskus] bisacodyl [Dulcolax (bisacodyl)] 10 mg [place] DAILY PRN 01/12/20 02/02/20 History clotrimazole 1 applic TOPICAL Q8H 01/12/20 02/02/20 History levothyroxine 125 mcg PO DAILY 01/12/20 02/02/20 History magnesium hydroxide [Milk of 30 ml PO DAILY PRN 01/12/20 02/02/20 History Magnesia] metformin 500 mg PO BID 01/12/20 02/02/20 History diclofenac sodium [Voltaren] 4 g EXT QID #1 tube 01/20/20 02/02/20 Rx ferrous sulfate 325 mg PO BID #0 tab 01/20/20 02/02/20 Rx furosemide [Lasix] 40 mg PO BID #0 tab 01/20/20 02/02/20 Rx insulin glargine [Lantus Solostar 15 unit SC DAILY #1 pen 01/20/20 02/02/20 Rx U-100 Insulin] insulin lispro [Humalog U-100 1 sliding scale dose SUBCUT 01/20/20 02/02/20 Rx Insulin] USEASDIRECTD PRN #0 ml ipratropium-albuterol 3 ml INHALATION QID #1 box 01/20/20 02/02/20 Rx metoprolol tartrate 12.5 mg PO Q12H #60 tab 01/20/20 02/02/20 Rx acetaminophen 650 mg PO Q6 PRN MDD 3gm/24hr 02/02/20 02/02/20 History ascorbic acid (vitamin C) 500 mg PO BID 02/02/20 02/02/20 History azithromycin 250 mg PO DAILY 02/02/20 02/02/20 History ipratropium-albuterol 3 ml INHALATION .EVERY 2 HOURS PRN 02/02/20 02/02/20 History warfarin 5 mg PO DAILY 02/02/20 02/02/20 History Patient History Medical History A-fib Acute and chronic respiratory failure with hypoxia Acute kidney failure Anemia Asthma (Chronic) CHF exacerbation (Acute) Chronic joint pain (Acute) CVA (cerebral vascular accident) (Acute) DM type 2 (diabetes mellitus, type 2) (Chronic) History of left shoulder replacement (Acute) Hypertension Hypothyroid Left cervical radiculopathy (Acute) Morbid obesity with body mass index of 50 or higher (Chronic) Osteoarthritis (Chronic) Pneumonia Proteinuria Respiratory failure with hypoxia and hypercapnia Sleep apnea "on cpap" Stroke-like symptoms Volume overload (Acute) Wound cellulitis Surgical History Status post bilateral total hip replacement (Chronic) Family History Other Family history non-contributory Social History Preferred Language: Martiniquais Communication Ability: Effective Thoracic Medicine Specialist Required: No Beliefs That Will Affect Care: None marital status: Single Current Living Situation: Alf Current Living Situation Comment: Sara Feels Safe at Home: Yes Safety Concerns: Feels Safe At This Time Smoking Status: Never smoker Second Hand Exposure: No ; Hx Alcohol Use: No Hx Substance Use: No Review of Systems Review of Systems: All systems reviewed & are unremarkable except as noted in HPI & below Physical Exam Constitutional: WD/WN, vitals as above Eyes: PERRL, conjunctivae normal, anicteric sclerae ENMT: external ear and nose normal, oropharynx normal Neck: normal visual inspection Respiratory: normal respiratory effort, lungs clear to auscultation Cardiovascular: RRR, no murmur, no edema Gastrointestinal (Abdomen): normal bowel sounds, soft, nontender, no hepatosplenomegaly Musculoskeletal: no cyanosis or clubbing, extremities motor strength 5/5 Skin: no rashes, warm and dry Psychiatric: A+Ox3, euthymic affect Results & Data ([facility]) Vital Signs (Past 12 Hours) Vital Signs Temp Pulse Pulse Resp BP Pulse Ox 02/04/20 12:00 36.8 C 64 20 117/69 99 02/04/20 11:14 78 19 96 02/04/20 07:13 60 60 18 93 02/04/20 07:06 36.5 C 58 L 20 119/70 94 02/04/20 04:02 64 18 90 02/04/20 03:54 36.7 C 62 20 115/77 90 Laboratory Results Microbiology 02/02/20 06:33 Blood Aerobic Blood Culture - Preliminary Coag neg staph not lugdunensis 02/02/20 06:33 Blood Anaerobic Blood Culture - Preliminary No growth in Anaerobic bottle after 48 hours. 02/03/20 10:30 Blood Aerobic Blood Culture - Preliminary No growth in Aerobic bottle after 24 hours. 02/03/20 10:30 Blood Anaerobic Blood Culture - Preliminary No growth in Anaerobic bottle after 24 hours. 02/03/20 10:30 Blood Aerobic Blood Culture - Preliminary No growth in Aerobic bottle after 24 hours. 02/03/20 10:30 Blood Anaerobic Blood Culture - Preliminary No growth in Anaerobic bottle after 24 hours. 02/04/20 09:00 Sputum, Expectorated Gram Stain - Final 02/02/20 15:45 Hip,Right Gram Stain - Final 02/02/20 15:45 Hip,Right Wound Culture - Preliminary Gram negative bacilli 02/02/20 06:20 Urine,Clean Catch Urine Culture - Final Escherichia coli ESBL 02/02/20 06:38 Blood Aerobic Blood Culture - Preliminary No growth in Aerobic bottle after 48 hours. 02/02/20 06:38 Blood Anaerobic Blood Culture - Preliminary Escherichia coli ESBL 02/03/20 14:45 Thigh,Right Gram Stain - Final PG Care Time/CCT Total # of Minutes Spent Total Time Spent with Patient: Total time spent is greater than 50% in coordin ation of care (as documented) at patient's floor/unit and/or counseling patient: Coding Level of Care Code 89156 Inpt Consult Level 4 Diagnoses Septicemia A41.9 UTI (urinary tract infection) N39.0
[2020-02-04] MEDS: DAPTOmycin 375 MG in SYRINGE 0 ML IV SCH (13:48)
[2020-02-04] MEDS: DOCUSATE SODIUM/SENNA 50/8.6MG TAB PO SCH ×2 (13:49→21:52)
[2020-02-04] MEDS: FLUTICASONE PROPIONATE NA SPR 16 GM BTL SCH (20:44)
[2020-02-04] MEDS: ACETAMINOPHEN 325 MG TAB PO PRN (23:10)
[2020-02-05] MEDS: CLOTRIMAZOLE 1% CR 15 GM TUBE TOP SCH ×3 (04:01→21:01)
[2020-02-05] MEDS: PIPERACILLIN/TAZOBACTAM 4.5 GM in DEXTROSE 5% 100 ML IV SCH ×3 (04:35→20:59)
[2020-02-05 06:33] LABS: Basophils # (auto) 0.03 K/uL (0-0.2); Basophils % (auto) 0.6 %; Eosinophils # (auto) 0.33 K/uL (0-0.5); Eosinophils % (auto) 6.6 %; Hematocrit (blood only) 26.5 % (37-47); Hemoglobin 8.1 g/dL (12.0-16.0); Immature Granulocytes # (auto) 0.11 K/uL (0.00-0.02); Immature Granulocytes % (auto) 2.2 %; Lymphocytes # (auto) 0.93 K/uL (1.2-3.4); Lymphocytes % (auto) 18.7 %; Mean Corpuscular Hemoglobin 26.5 pg (25-34); Mean Corpuscular Hgb Conc 30.6 g/dL (32-36); Mean Corpuscular Volume 86.6 fL (80-100); Mean Platelet Volume 9.5 fL (7.4-10.4); Monocytes # (auto) 0.69 K/uL (0.11-0.59); Monocytes % (auto) 13.9 %; Neutrophils # (auto) 2.89 K/uL (1.4-6.5); Platelet Count 241 K/uL (130-400); RDW Coefficient of Variation 19.4 % (11.5-14.5); RDW Standard Deviation 61.5 fL (36.4-46.3); Red Blood Count 3.06 M/uL (4.2-5.4); White Blood Count 4.98 K/uL (4.8-10.8)
[2020-02-05 06:43] LABS: INR 2.8 (0.9-1.1); Prothrombin Time 28.1 Seconds (9.0-12.0)
[2020-02-05] MEDS: ALBUT/IPRATROP 3MG/0.5MG NEB 3 ML VIAL INH SCH ×4 (07:02→18:58)
[2020-02-05 07:03] LABS: BUN Creatinine Ratio 24.3 (10-20); Creatinine Clr Calc Pharmacy 55.7 ml/min; Est GFR (African American) 44.1; Magnesium 2.3 mg/dl (1.8-2.4); Potassium 3.9 mmol/L (3.5-5.1)
[2020-02-05 07:06] LABS: Albumin Globulin Ratio 0.4 (0.9-2); Bilirubin,Total 0.5 mg/dl (0.2-1); Globulin 4.7 gm/dl (2.5-4.0); Total Protein 6.7 gm/dl (6.4-8.2)
[2020-02-05] MEDS: METOPROLOL TARTRATE 25 MG TAB PO SCH ×2 (08:29→21:08)
[2020-02-05] MEDS: FUROSEMIDE 40 MG TAB PO SCH ×2 (08:30→21:00)
[2020-02-05] MEDS: AMIODARONE 200 MG TAB PO SCH (08:30)
[2020-02-05] MEDS: CEROVITE ADV FORMULA TAB PO SCH (08:30)
[2020-02-05] MEDS: MONTELUKAST SODIUM 10 MG TABLET PO SCH (08:31)
[2020-02-05] MEDS: ASCORBIC ACID 500 MG TAB PO SCH ×2 (08:31→21:01)
[2020-02-05] MEDS: FERROUS SULFATE 325 MG TAB PO SCH ×2 (08:31→21:00)
[2020-02-05] MEDS: SITAGLIPTIN PHOSPHATE 25 MG TAB PO SCH (08:32)
[2020-02-05] MEDS: LACTOBACILLUS ACIDOPHILUS (FLORANEX) TAB PO SCH (08:32)
[2020-02-05] MEDS: MAGNESIUM OXIDE 400 MG TAB PO SCH (08:32)
[2020-02-05] MEDS: ASPIRIN 81 MG ECTAB PO SCH (08:32)
[2020-02-05] MEDS: GABAPENTIN 600 MG TAB PO SCH ×3 (08:32→20:59)
[2020-02-05] MEDS: DICLOFENAC SOD 1% GEL 100 GM TUBE EXT SCH ×4 (08:33→21:00)
[2020-02-05] MEDS: IPRATROPIUM BROMIDE/ALBUTEROL respimat INH INH SCH ×4 (08:33→21:00)
[2020-02-05] MEDS: INSULIN ASPART 100 UNITS/ML 3 ML PEN SC SCH ×4 (08:34→21:03)
[2020-02-05] MEDS: FLUTICASONE/VILANTEROL 200/25MCG 14 PUFFS/INHALER INH SCH (08:37)
[2020-02-05] MEDS: INSULIN GLARGINE SOLOSTAR 100 UNITS/ML 3 ML PEN SC SCH (08:38)
[2020-02-05] MEDS: DAPTOmycin 375 MG in SYRINGE 0 ML IV SCH (08:42)
[2020-02-05] MEDS: DOCUSATE SODIUM/SENNA 50/8.6MG TAB PO SCH ×2 (08:45→20:59)
--- NOTE | 2020-02-05 09:56 | Hospitalist Progress Note ---
Date of Service February 05, 2020 Assessment & Plan (1) Acute and chronic respiratory failure with hypoxia: Likely secondary to sepsis from UTI and bacteremia Chest x-ray with pulmonary vascular congestion Remains on small amount of supplemental O2 but is in no respiratory distress Treating sepsis as below for UTI and bacteremia Patient is on daptomycin and Zosyn (2) Fever: With sepsis present on admission with fever, tachycardia, hypoxia, and UTI now with gram-negative bacteremia Fevers are resolving Blood cultures from 02/01 show ESBL E. coli in 1 bottle and coag negative staph in the other. Consider the coag negative staph as a contaminant. Urine from 02/01 is also growing ESBL E. coli. 02/01 hip culture is growing Pseudomonas. Repeat blood and thigh wound cultures from 02/02 appear to be negative. Consider discontinuation of daptomycin and continues Zosyn for now, will defer this to infectious disease. (3) UTI (urinary tract infection): With ESBL E. coli, sensitive to Zosyn -Continue IV Zosyn as noted -Follow cultures, blood cultures drawn yesterday as noted above (4) Surgical wound, non healing: Has a nonhealing wound over her prosthesis in the right hip for 17 years Has grown MRSA on a recent culture several weeks ago-unclear if this was treated Is typically on suppressive antibiotics with daily azithromycin which would not cover for MRSA Cultures have been inconsistent, no evidence of MRSA per 2 cultures. Consider discontinuation of daptomycin, will defer to infectious disease. (5) Pneumonia: -Initially suspected as reviewed on CXR, but ruled out. Patient may have some atelectasis but does not appear to have an active pneumonia. Sputum culture shows normal maikol only. (6) Volume overload: - Pt appears euvolemic on exam, no JVD, legs without any edema, but difficult exam due to morbid obesity - pt uses lasix 40 mg BID at home-continue - Weight stable from time of discharge at last admission to now is 155.4- 155.9 kg (7) Afib: -Remains in sinus rhythm here -Continue to hold Coumadin since 02/01 for elevated INR - Cont amiodarone 200 mg QAM, metoprolol tartrate 12.5 mg Q12H - INR is 2.8 today, will reorder Coumadin to start tomorrow night. - Okay to discontinue telemetry, patient has been stable in this regard. (8) DM type 2 (diabetes mellitus, type 2): - ISS with accuchecks ACHS - Continue Lantus 15 U QAM, continue sitagliptin 50 mg daily - Hold metformin from home Hemoglobin A1c 7.6% from 01/2020 (9) Chronic joint pain: - Stable, continue voltaren gel topically (10) Anemia: - Chronic, however hemoglobin quite low at 8.2, normocytic -Check iron studies, B12, folate, and Hemoccult stool -Follow CBC (11) Morbid obesity with body mass index of 50 or higher: - BMI of 66 -Needs intensive weight loss management Is nonambulatory (12) Hypothyroid: - Continue levothyroxine 125 mcg TSH 1.64 here (13) Sleep apnea: - Chronic, does not wear O2 at baseline, does wear Nasal cpap ONLY, declines full face mask. (14) Elevated troponin: -Troponin slightly elevated troponin on 0.117/0.8/0.6, has not previously been elevated, -Likely secondary to myocardial demand ischemia from sepsis - No chest pain or concerns for ACS as seen on EKG (15) DVT prophylaxis: -coumadin, no scds or teds due to skin breakdown CODE: Dispo: From [facility], continued stay Admission and Anticipated Discharge Date Admission Date: February 02, 2020 Subjective Patient seen and examined with nursing in room. Patient is awake and alert, feels well. She does have an occasional loose cough. She has been afebrile. Currently tolerating room air with a sat in the low 90s. Physical Exam Constitutional: + obese and cooperative; no acute distress Neck: trachea midline, no thyromegaly Respiratory: normal respiratory effort; no respiratory distress Auscultation: + rhonchi (Limited exam, possible rhonchi on the left.); no crackles, no rales and no wheezes Cardiovascular: Rate/Rhythm: regular rate and regular rhythm Heart Sounds: normal S1 and normal S2 Gastrointestinal (Abdomen): Inspection/Auscultation: abdomen normal to inspection Percussion/Palpation: abdomen soft; abdomen nontender, no guarding, abdomen not rigid and no hepatosplenomegaly Skin: no rashes, warm and dry Right hip wound dressings taken down by nursing, patient has an open area with some fresh blood, no induration or purulent drainage noted Results & Data Results & Data ([facility]) Vital Signs (Past 12 Hours) Vital Signs Temp Pulse Pulse Resp BP BP Pulse Ox 02/05/20 07:30 36 C L 59 L 20 105/68 93 02/05/20 07:02 77 20 98 02/05/20 04:59 36.7 C 61 18 106/63 93 02/05/20 03:20 58 L 16 93 02/04/20 23:27 81 18 96 02/04/20 22:20 67 02/04/20 22:04 36.8 C 62 20 103/64 95 PG Care Time/CCT Total # of Minutes Spent Total Time Spent with Patient: Total time spent is greater than 50% in coordination of care (as documented) at patient's floor/unit and/or counseling patient: Coding Level of Care Code 10420 Subseq Hosp Care Lvl 2 Diagnoses Acute and chronic respiratory failure with hypoxia J96.21 Fever R50.9 UTI (urinary tract infection) N39.0 Surgical wound, non healing T81.89XA Encounter type: initial encounter Pneumonia J18.9 Volume overload E87.70 Hypervolemia type: unspecified Afib I48.91 DM type 2 (diabetes mellitus, type 2) E11.9 Chronic joint pain M25.50; G89.29 Anemia D64.89 Anemia type: other cause Other causes of anemia: other cause, not classified Morbid obesity with body mass index of 50 or higher E66.01 Hypothyroid E03.9 Hypothyroidism type: unspecified Sleep apnea G47.33 Sleep apnea type: obstructive Elevated troponin R79.89 DVT prophylaxis Z29.9 (1) Surgical wound, non healing Encounter type: initial encounter Qualified Code(s): T81.89XA - Other complications of procedures, not elsewhere classified, initial encounter (2) Volume overload Hypervolemia type: unspecified Qualified Code(s): E87.70 - Fluid overload, unspecified (3) Anemia Anemia type: other cause Other causes of anemia: other cause, not classified Qualified Code(s): D64.89 - Other specified anemias (4) Hypothyroid Hypothyroidism type: unspecified Qualified Code(s): E03.9 - Hypothyroidism, unspecified (5) Sleep apnea Sleep apnea type: obstructive Qualified Code(s): G47.33 - Obstructive sleep apnea (adult) (pediatric)
[2020-02-05] MEDS: LEVOTHYROXINE SODIUM 125 MCG TABLET PO SCH (15:28)
[2020-02-05] MEDS: ACETAMINOPHEN 325 MG TAB PO PRN (20:59)
[2020-02-05] MEDS: FLUTICASONE PROPIONATE NA SPR 16 GM BTL SCH (21:01)
[2020-02-06] MEDS: CLOTRIMAZOLE 1% CR 15 GM TUBE TOP SCH ×3 (03:25→20:10)
[2020-02-06] MEDS: PIPERACILLIN/TAZOBACTAM 4.5 GM in DEXTROSE 5% 100 ML IV SCH ×3 (03:26→20:16)
[2020-02-06] MEDS: LEVOTHYROXINE SODIUM 125 MCG TABLET PO SCH (05:30)
[2020-02-06] MEDS: ALBUT/IPRATROP 3MG/0.5MG NEB 3 ML VIAL INH SCH ×3 (06:48→15:39)
[2020-02-06 07:02] LABS: Basophils # (auto) 0.03 K/uL (0-0.2); Basophils % (auto) 0.6 %; Eosinophils # (auto) 0.25 K/uL (0-0.5); Immature Granulocytes # (auto) 0.25 K/uL (0.00-0.02); Lymphocytes # (auto) 1.09 K/uL (1.2-3.4); Lymphocytes % (auto) 21.9 %; Mean Corpuscular Hemoglobin 27.1 pg (25-34); Mean Corpuscular Hgb Conc 30.8 g/dL (32-36); Mean Corpuscular Volume 88.1 fL (80-100); Mean Platelet Volume 9.5 fL (7.4-10.4); Monocytes # (auto) 0.59 K/uL (0.11-0.59); Monocytes % (auto) 11.8 %; Neutrophils # (auto) 2.77 K/uL (1.4-6.5); Neutrophils % (auto) 55.7 %; Nucleated RBC # (auto) 0.02 K/uL (0-0); Nucleated RBC % (auto) 0.4 %; Platelet Count 274 K/uL (130-400); RDW Coefficient of Variation 19.3 % (11.5-14.5); RDW Standard Deviation 62.8 fL (36.4-46.3); Red Blood Count 2.95 M/uL (4.2-5.4); White Blood Count 4.98 K/uL (4.8-10.8)
[2020-02-06 07:11] LABS: INR 2.3 (0.9-1.1); Prothrombin Time 22.9 Seconds (9.0-12.0)
[2020-02-06 07:32] LABS: Creatinine Clr Calc Pharmacy 50.2 ml/min; Est GFR (African American) 38.8; Est GFR (Non-African American) 33.5; Potassium 3.7 mmol/L (3.5-5.1)
[2020-02-06] MEDS: DAPTOmycin 375 MG in SYRINGE 0 ML IV SCH (08:24)
[2020-02-06] MEDS: FLUTICASONE/VILANTEROL 200/25MCG 14 PUFFS/INHALER INH SCH (08:25)
[2020-02-06] MEDS: INSULIN ASPART 100 UNITS/ML 3 ML PEN SC SCH ×4 (08:25→20:36)
[2020-02-06] MEDS: AMIODARONE 200 MG TAB PO SCH (08:26)
[2020-02-06] MEDS: IPRATROPIUM BROMIDE/ALBUTEROL respimat INH INH SCH ×3 (08:26→16:51)
[2020-02-06] MEDS: FERROUS SULFATE 325 MG TAB PO SCH ×2 (08:27→21:09)
[2020-02-06] MEDS: FUROSEMIDE 40 MG TAB PO SCH ×2 (08:27→20:25)
[2020-02-06] MEDS: METOPROLOL TARTRATE 25 MG TAB PO SCH ×2 (08:27→20:25)
[2020-02-06] MEDS: GABAPENTIN 600 MG TAB PO SCH ×3 (08:28→20:30)
[2020-02-06] MEDS: LACTOBACILLUS ACIDOPHILUS (FLORANEX) TAB PO SCH (08:28)
[2020-02-06] MEDS: MAGNESIUM OXIDE 400 MG TAB PO SCH (08:29)
[2020-02-06] MEDS: SITAGLIPTIN PHOSPHATE 25 MG TAB PO SCH (08:29)
[2020-02-06] MEDS: ASCORBIC ACID 500 MG TAB PO SCH ×2 (08:29→21:09)
[2020-02-06] MEDS: MONTELUKAST SODIUM 10 MG TABLET PO SCH (08:29)
[2020-02-06] MEDS: ASPIRIN 81 MG ECTAB PO SCH (08:30)
[2020-02-06] MEDS: CEROVITE ADV FORMULA TAB PO SCH (08:30)
[2020-02-06] MEDS: INSULIN GLARGINE SOLOSTAR 100 UNITS/ML 3 ML PEN SC SCH (08:31)
[2020-02-06] MEDS: DICLOFENAC SOD 1% GEL 100 GM TUBE EXT SCH ×4 (08:31→20:14)
[2020-02-06] MEDS: DOCUSATE SODIUM/SENNA 50/8.6MG TAB PO SCH ×2 (08:43→21:09)
[2020-02-06] MEDS: ACETAMINOPHEN 325 MG TAB PO PRN (10:44)
--- NOTE | 2020-02-06 11:04 | Infectious Disease Progress Nt ---
Date of Service February 06, 2020 Assessment & Plan (1) Septicemia: will stop dapto, suspect [employer] in blood is contaminant and no other gpc noted. would suggest continued zosyn x 4 weeks for bsi/uti as well as wound infection. she follows with wound center as outpatient, will need weekly cbc ,cmp, esr while on abx. (2) UTI (urinary tract infection): Admission and Anticipated Discharge Date Admission Date: February 02, 2020 Subjective pt remains on dapto and zosyn, tolerating well. afebrile. wbc 4.9, creat 1.6. 02/03 sputum culture growing normal maiokl. wound culture growing pseudomonas, sensitive to zosyn and cipro but has cipro listed as allergy, no reaction noted. Blood cultures from ER growing ESBL + E. coli, urine growing the same. 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 repeat blood cultures negative. Results & Data ([facility]) Vital Signs (Past 12 Hours) Vital Signs Temp Pulse Pulse Resp BP Pulse Ox 02/06/20 07:43 59 L 02/06/20 07:14 36.2 C L 60 20 143/83 H 92 02/06/20 06:48 69 69 20 95 02/06/20 04:00 36.6 C 60 18 113/68 90 02/06/20 03:15 60 16 92 02/06/20 00:09 72 02/05/20 23:42 65 16 95 02/05/20 23:10 36.9 C 67 20 113/68 93 Laboratory Results Microbiology 02/04/20 09:00 Sputum, Expectorated Gram Stain - Final 02/04/20 09:00 Sputum, Expectorated Sputum Culture - Final Moderate normal maikol. 02/03/20 10:30 Blood Aerobic Blood Culture - Preliminary No growth in Aerobic bottle after 48 hours. 02/03/20 10:30 Blood Anaerobic Blood Culture - Preliminary No growth in Anaerobic bottle after 48 hours. 02/03/20 10:30 Blood Aerobic Blood Culture - Preliminary No growth in Aerobic bottle after 48 hours. 02/03/20 10:30 Blood Anaerobic Blood Culture - Preliminary No growth in Anaerobic bottle after 48 hours. 02/03/20 14:45 Thigh,Right Gram Stain - Final 02/03/20 14:45 Thigh,Right Wound Culture - Final Low counts mixed probable skin microbiota. No further identifications or sensitivities to follow. 02/02/20 15:45 Hip,Right Gram Stain - Final 02/02/20 15:45 Hip,Right Wound Culture - Final Pseudomonas aeruginosa 02/02/20 06:33 Blood Aerobic Blood Culture - Preliminary Coag neg staph not lugdunensis 02/02/20 06:33 Blood Anaerobic Blood Culture - Preliminary No growth in Anaerobic bottle after 48 hours. 02/02/20 06:20 Urine,Clean Catch Urine Culture - Final Escherichia coli ESBL 02/02/20 06:38 Blood Aerobic Blood Culture - Preliminary No growth in Aerobic bottle after 48 hours. 02/02/20 06:38 Blood Anaerobic Blood Culture - Preliminary Escherichia coli ESBL PG Care Time/CCT Total # of Minutes Spent Total Time Spent with Patient: Total time spent is greater than 50% in coordination of care (as documented) at patient's floor/unit and/or counseling patient: Coding Level of Care Code 42621 Subseq Hosp Care Lvl 1 Diagnoses Septicemia A41.9 UTI (urinary tract infection) N39.0
--- NOTE | 2020-02-06 14:28 | Hospitalist Progress Note ---
Date of Service February 06, 2020 Assessment & Plan (1) UTI (urinary tract infection): With ESBL E. coli, sensitive to Zosyn. Blood culture on 02/01 also grew the ESBL E. coli. - Continue IV Zosyn -> Will need 7-day course for bacteremia (End date: 02/08/2020). (2) Surgical wound, non healing: Has a non-healing wound over her prosthesis in the right hip for 17 years. Had grown MRSA on a culture on 01/13/2020. This was during admission for influenza infection and respiratory issues. Seen by general and orthopedic surgery with thought that no surgical intervention was needed. - Is typically on suppressive antibiotics with daily azithromycin which would not cover for MRSA - Per ID consult, will need prolonged course of IV antibiotics for the wound infection (4 weeks; end date: 02/29/2020) (3) Fever: With sepsis present on admission with fever, tachycardia, hypoxia, and UTI now with gram-negative bacteremia. - Now resolved. (4) Afib: EKG showed sinus rhythm. - Continue amiodarone 200 mg QAM, metoprolol tartrate 12.5 mg Q12H - Continue warfarin -> INR was 2.3 on 02/05. Recheck in 2-3 days. (5) DM type 2 (diabetes mellitus, type 2): Hemoglobin A1c 7.6% from 01/2020. - Continue Lantus 15 U QAM, continue sitagliptin 50 mg daily - Sliding scale insulin - Hold metformin from home - Blood sugars are 160-215 today. (6) Anemia: Chronic, however hemoglobin quite low at 8.2, normocytic. Iron studies on 02/03 indicated anemia of chronic disease. B12/folate were within normal limits. - Follow CBC (7) Morbid obesity with body mass index of 50 or higher: BMI of 65. Is non-ambulatory. (8) Hypothyroid: TSH was 1.64 here. - Continue levothyroxine 125 mcg (9) Sleep apnea: Chronic. - Wearing CPAP at night. No major concerns. (10) Elevated troponin: Troponin slightly elevated troponin on 0.117/0.8/0.6, has not previously been elevated. Likely secondary to myocardial demand ischemia from sepsis. - No chest pain or concerns for ACS as seen on EKG - Outpatient follow up (11) DVT prophylaxis: Warfarin Admission and Anticipated Discharge Date Admission Date: February 02, 2020 Subjective Doing well today. No major concerns. Reports no fevers/chills, chest pain, shortness of breath, abdominal pain, nausea, or vomiting. Physical Exam Constitutional: WD/WN, vitals as above + morbidly obese Eyes: EOM intact bilaterally; no conjunctival abnormality ENMT: external ear and nose normal, oropharynx normal Neck: trachea midline, no thyromegaly normal visual inspection Respiratory: normal respiratory effort, lungs clear to auscultation no respiratory distress Cardiovascular: RRR, no murmur, no edema Gastrointestinal (Abdomen): Inspection/Auscultation: abdomen normal to inspection; abdomen not distended Musculoskeletal: no cyanosis or clubbing, extremities motor strength 5/5 Skin: no rashes, warm and dry Neurologic: moves all extremities and awake Psychiatric: Orientation: alert, oriented to person and cooperative Results & Data Results & Data ([facility]) Vital Signs (Past 12 Hours) Vital Signs Temp Pulse Pulse Resp BP Pulse Ox 02/06/20 11:32 36.8 C 63 18 122/68 95 02/06/20 11:17 59 L 16 93 02/06/20 07:43 59 L 02/06/20 07:14 36.2 C L 60 20 143/83 H 92 02/06/20 06:48 69 69 20 95 02/06/20 04:00 36.6 C 60 18 113/68 90 02/06/20 03:15 60 16 92 PG Care Time/CCT Total # of Minutes Spent Total Time Spent with Patient: Total time spent is greater than 50% in coordination of care (as documented) at patient's floor/unit and/or counseling patient: Coding Level of Care Code 40964 Subseq Hosp Care Lvl 3 Diagnoses UTI (urinary tract infection) N39.0 Surgical wound, non healing T81.89XA Encounter type: initial encounter Fever R50.9 Afib I48.91 DM type 2 (diabetes mellitus, type 2) E11.9 Anemia D64.89 Anemia type: other cause Other causes of anemia: other cause, not classified Morbid obesity with body mass index of 50 or higher E66.01 Hypothyroid E03.9 Hypothyroidism type: unspecified Sleep apnea G47.33 Sleep apnea type: obstructive Elevated troponin R79.89 DVT prophylaxis Z29.9 (1) Surgical wound, non healing Encounter type: initial encounter Qualified Code(s): T81.89XA - Other complications of procedures, not elsewhere classified, initial encounter (2) Anemia Anemia type: other cause Other causes of anemia: other cause, not classified Qualified Code(s): D64.89 - Other specified anemias (3) Hypothyroid Hypothyroidism type: unspecified Qualified Code(s): E03.9 - Hypothyroidism, unspecified (4) Sleep apnea Sleep apnea type: obstructive Qualified Code(s): G47.33 - Obstructive sleep apnea (adult) (pediatric)
[2020-02-06] MEDS ORDERED: WARFARIN SOD 5 MG TAB PO SCH (16:00)
[2020-02-06] MEDS: FLUTICASONE PROPIONATE NA SPR 16 GM BTL SCH (20:31)
[2020-02-06] MEDS: ALBUT/IPRATROP 3MG/0.5MG NEB 3 ML VIAL INH PRN (23:16)
[2020-02-07] MEDS: PIPERACILLIN/TAZOBACTAM 4.5 GM in DEXTROSE 5% 100 ML IV SCH (03:35)
[2020-02-07] MEDS: CLOTRIMAZOLE 1% CR 15 GM TUBE TOP SCH ×2 (03:35→11:46)
[2020-02-07] MEDS: LEVOTHYROXINE SODIUM 125 MCG TABLET PO SCH (05:56)
[2020-02-07 06:15] LABS: Hematocrit (blood only) 27.1 % (37-47); Hemoglobin 8.2 g/dL (12.0-16.0); Mean Corpuscular Hemoglobin 26.5 pg (25-34); Mean Corpuscular Hgb Conc 30.3 g/dL (32-36); Mean Corpuscular Volume 87.4 fL (80-100); Mean Platelet Volume 9.1 fL (7.4-10.4); Nucleated RBC # (auto) 0.03 K/uL (0-0); Nucleated RBC % (auto) 0.5 %; Platelet Count 310 K/uL (130-400); RDW Coefficient of Variation 19.7 % (11.5-14.5); RDW Standard Deviation 63.2 fL (36.4-46.3); White Blood Count 6.48 K/uL (4.8-10.8)
[2020-02-07 06:24] LABS: INR 1.7 (0.9-1.1); Prothrombin Time 17.9 Seconds (9.0-12.0)
[2020-02-07 06:47] LABS: BUN Creatinine Ratio 18.6 (10-20); Calcium 8.9 mg/dl (8.5-10.1); Creatinine Clr Calc Pharmacy 43.2 ml/min; Est GFR (African American) 33.2; Est GFR (Non-African American) 28.6; Magnesium 2.3 mg/dl (1.8-2.4); Phosphorus 3.8 mg/dl (2.5-4.9); Potassium 3.8 mmol/L (3.5-5.1)
[2020-02-07] MEDS: METOPROLOL TARTRATE 25 MG TAB PO SCH (07:41)
[2020-02-07] MEDS: LACTOBACILLUS ACIDOPHILUS (FLORANEX) TAB PO SCH (07:41)
[2020-02-07] MEDS: GABAPENTIN 600 MG TAB PO SCH ×2 (07:42→13:24)
[2020-02-07] MEDS: MAGNESIUM OXIDE 400 MG TAB PO SCH (07:43)
[2020-02-07] MEDS: CEROVITE ADV FORMULA TAB PO SCH (07:43)
[2020-02-07] MEDS: MONTELUKAST SODIUM 10 MG TABLET PO SCH (07:43)
[2020-02-07] MEDS: FERROUS SULFATE 325 MG TAB PO SCH (07:43)
[2020-02-07] MEDS: ASCORBIC ACID 500 MG TAB PO SCH (07:43)
[2020-02-07] MEDS: SITAGLIPTIN PHOSPHATE 25 MG TAB PO SCH (07:43)
[2020-02-07] MEDS: ASPIRIN 81 MG ECTAB PO SCH (07:43)
[2020-02-07] MEDS: AMIODARONE 200 MG TAB PO SCH (07:44)
[2020-02-07] MEDS: FUROSEMIDE 40 MG TAB PO SCH (07:46)
[2020-02-07] MEDS: INSULIN GLARGINE SOLOSTAR 100 UNITS/ML 3 ML PEN SC SCH (07:48)
[2020-02-07] MEDS: FLUTICASONE/VILANTEROL 200/25MCG 14 PUFFS/INHALER INH SCH (07:48)
[2020-02-07] MEDS: DICLOFENAC SOD 1% GEL 100 GM TUBE EXT SCH ×2 (07:50→12:08)
[2020-02-07] MEDS: INSULIN ASPART 100 UNITS/ML 3 ML PEN SC SCH ×2 (07:56→11:44)
[2020-02-07] MEDS: DOCUSATE SODIUM/SENNA 50/8.6MG TAB PO SCH (08:26)
[2020-02-07] MEDS: ALBUT/IPRATROP 3MG/0.5MG NEB 3 ML VIAL INH PRN (09:20)
[2020-02-07] MEDS ORDERED: ERTAPENEM SODIUM 1,000 MG in SODIUM CHLORIDE 0.9% 50 ML IV SCH (12:00)
--- NOTE | 2020-02-07 12:16 | Discharge Summary ---
Date of Service February 07, 2020 Admission HPI Per Admitting Provider This is a 64 yo F who is a resident of [facility], with PMH of gram - septicemia, DM II, paroxsysmal afib/flutter, chronic respiratory failure with hypoxia, HTN, chronically anticoagulation with coumadin, anemia, chronic joint pain, hypothyroidism, hx MRSA, multiple skin wounds and left nonhealing hip wound x 17 years, KHALIDA, BMI of 64.9 and likely obesity hypoventilation syndrome, who was recently hospitalized here at [facility] for influenza A infection with acute on chronic hypercarbic/hypoxic respiratory failure, and septic shock requiring intubation and vasopressors for hemodynamic support, and temporary dialysis for acute renal failure. The patient presents to day with new onset of fever and chills yesterday. She was screened for influenza again at [facility] on 01/31 and this is negative. Due to her recent onset of fever again, she was screened for COVID-19. She denies any travel, and has not been visited by anyone since being released from the hospital during her last stay as the visitation restrictions were implemented at nursing facilities. She admits to slight white-yellow sputum production within the past 24 hours, increased shortness of breath with ADLs (however she is primarily bedbound with only other activity is getting up to the chair), but denies runny nose, sore throat, headache, or body aches. She is noted to have an infected appearing UA on screening; pt denies dysuria, increased frequency, but notes that she is a little incontinent, and uses a brief which is changed every 4-6 hours. She has not noticed foul smelling urine. Pt also has a chronic R hip wound which appears to have increased redness surrounding the area, and last time she saw the wound clinic 01/05/2020 as an outpt. Since then she has been following in the nursing facility and has been on azithromycin for the hip. She is not using anything topically around the wound for yeast. In the ER she has been started on daptomycin, zosyn and doxycycline. CXR is noted to have possible volume overloaded. Principal Diagnosis 1) ESBL E. coli UTI with bacteremia 2) Soft tissue infection of the right hip Discharge Exam Constitutional WD/WN, vitals as above + morbidly obese Eyes EOM intact bilaterally; no conjunctival abnormality ENMT external ear and nose normal, oropharynx normal Neck trachea midline, no thyromegaly normal visual inspection Respiratory normal respiratory effort, lungs clear to auscultation no respiratory distress Cardiovascular RRR, no murmur, no edema Gastrointestinal (Abdomen) Inspection/Auscultation: abdomen normal to inspection; abdomen not distended Musculoskeletal no cyanosis or clubbing, extremities motor strength 5/5 Skin no rashes, warm and dry Neurologic moves all extremities and awake Psychiatric Orientation: alert, oriented to person and cooperative Discharge Data Allergies Allergy/AdvReac Type Severity Reaction Status Date / Time Iodinated Contrast Media Allergy Intermediate HIVES Verified 02/02/20 05:59 latex Allergy Unknown LOW LEVEL Verified 02/02/20 05:59 LATEX ALLERGY pineapple Allergy Unknown Unknown Verified 02/02/20 05:[address] HICKS Verified 02/02/20 05:59 ASKED THAT ALLERGY BE ADDED 07/31/08 Sulfa (Sulfonamide Allergy Unknown HIVES Verified 02/02/20 05:59 Antibiotics) vancomycin Allergy Unknown HIVES, GI Verified 02/02/20 05:59 UPSET Consultations 02/02/20 07:25 ED Decision to Admit Stat 02/02/20 10:04 Consult Case Management - Discharge Planning Routine 02/03/20 11:04 Consult Wound Care Provider Routine 02/03/20 15:01 Consult Infectious Diseases Routine Hospital Course (1) Surgical wound, non healing: Has a non-healing wound over her prosthesis in the right hip for 17 years. Had grown MRSA on a culture on 01/13/2020. This was during admission for influenza infection and respiratory issues. Seen by general and orthopedic surgery with thought that no surgical intervention was needed. - Is typically on suppressive antibiotics with daily azithromycin which would not cover for MRSA - Per ID consult, will need prolonged course of IV antibiotics for the wound infection - Discharged on ertapenem 1g IV daily x 4 total weeks. (4 weeks; end date: 02/29/2020) = Will need weekly CBC, CMP, & ESR per ID -> Will need to follow up with ID. Dr. French is leaving, so will need to arrange other ID follow up. (2) Elevated serum creatinine: Baseline Cr is 1.4-1.6, eGFR ~35. - Cr up to 1.8 on discharge. She is on Lasix 40mg PO BID for lower extremity swelling which I think is more lymphedema rather than heart failure. - Reduced Lasix to daily on discharge, but she may need to go back to BID if leg swelling increases. (3) UTI (urinary tract infection): With ESBL E. coli, sensitive to Zosyn. Blood culture on 02/01 also grew the ESBL E. coli. - Continued IV Zosyn in the hospital; switched to ertapenem on discharge (4) Fever: With sepsis present on admission with fever, tachycardia, hypoxia, and UTI now with gram-negative bacteremia. - Now resolved. (5) Afib: EKG showed sinus rhythm. - Continue amiodarone 200 mg QAM, metoprolol tartrate 12.5 mg Q12H - Continue warfarin -> INR was 2.3 on 02/05, then 1.7 on 02/06. Recheck in 2-3 days. (6) DM type 2 (diabetes mellitus, type 2): Hemoglobin A1c 7.6% from 01/2020. - Continue Lantus 15 U QAM, continue sitagliptin 50 mg daily - Sliding scale insulin - Hold metformin on discharge for worsening kidney function. (7) Anemia: Chronic, however hemoglobin quite low at 8.2, normocytic. Iron studies on 02/03 indicated anemia of chronic disease. B12/folate were within normal limits. - Follow CBC -> Stable throughout hospital stay. No indication of bleeding apart from a mild nose bleed several days prior to discharge. (8) Morbid obesity with body mass index of 50 or higher: BMI of 65. Is non-ambulatory. (9) Hypothyroid: TSH was 1.64 here. - Continue levothyroxine 125 mcg (10) Sleep apnea: Chronic. - Wearing CPAP at night. No major concerns. (11) Elevated troponin: Troponin slightly elevated troponin on 0.117/0.8/0.6, has not previously been elevated. Likely secondary to myocardial demand ischemia from sepsis. - No chest pain or concerns for ACS as seen on EKG - Outpatient follow up (12) DVT prophylaxis: Warfarin Total Time Total Time Spent Total Time Spent (In Minutes): 35 Discharge Plan Discharge Items Patient Disposition: Trans Resident Long-Term Care Reason For Visit: FEVER, ACUTE ON CHRONIC RESPIRATORY FAILURE Discharge Diagnosis: Urinary tract infection with bacteremia Activity: Resume your previous activity Non-emergency contact: Primary Care Provider and Specialist Call non-emergency contact if: your pain is not controlled Follow-up/Referrals: Pilar Edmond CRNP [Nurse Practitioner] - (Please follow up with Wound Care in 1-2 weeks.) Addison,Briseida [Primary Care Provider] - Diet: Carb Consistent or DM2 and Heart Healthy Addtl Attending Provider Instructions: Found to have UTI with E. coli with blood culture positive as well. No further positive blood cultures. She also had a right hip wound that grew Pseudomonas. ID recommended 4 weeks of antibiotics. I do not believe this was for the UTI/bacteremia, but was for the right hip infection. She was evaluated by general surgery, orthopedic surgery, and Wound Care who did a debridement, but no further surgery recommended. She was switched to 4 weeks of ertapenem 1g IV daily. End date: 02/29/2020. She will need weekly CBC, CMP, and ESR while on antibiotics. Her Lasix was lowered due to mildly increased Cr of 1.8 (from her baseline of ~1.4-1.6). Her Cr should be checked on . Additionally, her INR was generally in the low 2 range, but had dipped to 1.7 on discharge. This should be monitored on as well to ensure she is back in the desired 2-3 range. As she has not had any recent blood clots, it is not necessary to give Lovenox/heparin to bridge her. Finally, her metformin was held at present for her kidney function. If kidney function improves, this could be resumed at a renally-adjusted dose. Pending Studies at Discharge: No Stand-Alone Forms: My [facility] Skilled Items Patient informed of condition?: Yes DNR: No Discharge Level of Care: Skilled Communicable Disease: Yes (ESBL E. coli and Pseudomonas) Discharge Prognosis: Stable Lines: None Urinary Catheter: No Medications and DC Order Prescriptions: Continued gabapentin 600 mg tablet 600 mg PO TID RF: 0 fluticasone propionate 50 mcg/actuation spray,suspension 2 spray Intranasal HS RF: 0 atorvastatin 40 mg tablet 40 mg PO HS RF: 0 aspirin 81 mg Tablet,Delayed Release (Dr/Ec) 81 mg PO DAILY RF: 0 magnesium oxide 400 mg (241.3 mg magnesium) Tablet 400 mg PO QAM RF: 0 multivitamin with minerals [Multiple Vitamin-Minerals] Tablet 1 tab PO QAM RF: 0 sitagliptin 50 mg tablet 50 mg PO DAILY Qty: 30 RF: 0 fluticasone propion-salmeterol [Advair Diskus] 250-50 mcg/dose blister with device 1 inh INHALATION BID RF: 0 acetaminophen 325 mg Tablet 650 mg PO Q6H MDD 3gm/24hr PRN (Reason: temp>100) RF: 0 amiodarone 200 mg tablet 200 mg PO QAM RF: 0 Lactinex 1 million cell Tablet,Chewable 1 tab PO DAILY RF: 0 montelukast 10 mg Tablet 10 mg PO QAM RF: 0 sennosides-docusate sodium [Senokot-S] 8.6-50 mg Tablet 1 tab-cap PO BID RF: 0 albuterol sulfate [Ventolin HFA] 90 mcg/actuation HFA aerosol inhaler 2 puff INHALATION Q4 PRN (Reason: Shortness Of Breath Or Wheezing) RF: 0 magnesium hydroxide [Milk of Magnesia] 400 mg/5 mL Suspension 30 ml PO DAILY PRN (Reason: Constipation) RF: 0 levothyroxine 125 mcg Tablet 125 mcg PO DAILY RF: 0 bisacodyl [Dulcolax (bisacodyl)] 10 mg Suppository 10 mg MA DAILY PRN (Reason: Constipation) RF: 0 clotrimazole 1 % Cream 1 applic TOPICAL Q8H RF: 0 diclofenac sodium [Voltaren] 1 % Gel 4 g EXT QID Qty: 1 RF: 0 Lantus Solostar U-100 Insulin 100 unit/mL (3 mL) Insulin Pen 15 unit SC DAILY Qty: 1 RF: 2 ipratropium-albuterol 0.5 mg-3 mg(2.5 mg base)/3 mL Solution For Nebulization 3 ml INHALATION QID Qty: 1 RF: 0 insulin lispro [Humalog U-100 Insulin] 100 unit/mL Solution 1 sliding scale dose SUBCUT USEASDIRECTD PRN (Reason: elevated bs) Qty: 0 RF: 0 metoprolol tartrate 25 mg tablet 12.5 mg PO Q12H Qty: 60 RF: 0 ascorbic acid (vitamin C) 500 mg Tablet 500 mg PO BID RF: 0 warfarin 5 mg tablet 5 mg PO DAILY RF: 0 ipratropium-albuterol 0.5 mg-3 mg(2.5 mg base)/3 mL solution for nebulization 3 ml INHALATION .EVERY 2 HOURS PRN (Reason: Shortness Of Breath Or Wheezing) RF: 0 acetaminophen 325 mg Tablet 650 mg PO Q6 MDD 3gm/24hr PRN (Reason: Pain) RF: 0 Changed furosemide [Lasix] 40 mg tablet 40 mg PO DAILY Qty: 0 RF: 0 ferrous sulfate 325 mg (65 mg iron) Tablet 325 mg PO DAILY Qty: 0 RF: 0 Discontinued metformin 500 mg Tablet 500 mg PO BID RF: 0 azithromycin 250 mg tablet 250 mg PO DAILY RF: 0 Discharge Orders: Discharge Order (Routine); Ordered 02/07/20 Ordered By: Rahul Shipman Admission Data Admit Date/Time: 02/02/20 08:32 Attending Provider: Rahul Shipman Admit Provider: Katja Edmondson Primary Care Provider: Briseida Killian Other Providers: Ansley French ; Irving Brown ; Rahul Shipman Coding Level of Care Code D/C Day Management >30 mins Diagnoses Surgical wound, non healing T81.89XA Encounter type: initial encounter Elevated serum creatinine R79.89 UTI (urinary tract infection) N39.0 Fever R50.9 Afib I48.91 DM type 2 (diabetes mellitus, type 2) E11.9 Anemia D64.89 Anemia type: other cause Other causes of anemia: other cause, not classified Morbid obesity with body mass index of 50 or higher E66.01 Hypothyroid E03.9 Hypothyroidism type: unspecified Sleep apnea G47.33 Sleep apnea type: obstructive Elevated troponin R79.89 DVT prophylaxis Z29.9
== END 2020-02-07 15:57 | DRG 871 ==
LOC: ED 05:18 → 2S 08:32 → SUATTDRO 08:32 → 2S 09:30

== ENCOUNTER 2020-05-06 03:32 | Inpatient (IN) ==
--- NOTE | 2020-05-06 03:43 | Emergency Department Note ---
ED Visit Note Physician Evaluation Note: I have personally evaluated and examined this patient. I agree with assessment and plan of Darcy Sutton PA-C. Septic 64 yr old from local nursing facility. Appears Urine main source of infection and broad spectrum abx started. BP a bit tenuous but did start coming back up with IV fluids. Hospitalist in to evaluate further. Mars Pickett MD : Sepsis Qualifiers: Sepsis type: sepsis due to unspecified organism Sepsis acute organ dysfunction status: unspecified Qualified Code(s): A41.9 - Sepsis, unspecified organism
[2020-05-06] MEDS ORDERED: IBUPROFEN 800 MG TAB PO STA (03:47)
[2020-05-06] MEDS ORDERED: PIPERACILLIN/TAZOBACTAM 4.5 GM/120 ML BAG IV ONE (03:52)
[2020-05-06] MEDS ORDERED: SODIUM CHLORIDE 0.9% 1000ML 2,000 ML IV ONE (03:52)
[2020-05-06] MEDS ORDERED: PIPERACILL/TAZOBAC CONSULT ACTIVE PRN ×2 (03:52→07:11)
--- NOTE | 2020-05-06 03:55 | Emergency Department Note ---
History of Present Illness General Chief complaint: Shortness of Breath/Dyspnea Stated complaint: SHORT OF BREATH Time Seen by Provider: 05/06/20 03:38 History of Present Illness This 64-year-old shelter patient presents to the ER complaining of fever, chills, cough, congestion for the past few days Location: Generalized Quality: Fever Severity: Moderate Duration: Past few days Timing: Started a few days ago Context: Symptoms got worse and patient was sent in Modifying factors: better with nebulizer; worse with coughing [facility] gave a nebulizer and Tylenol. Patient is a full code. There has been other positive COVID residents at the [facility]. Patient tested negative last month. Patient denies chest pain, abdominal pain, vomiting, diarrhea. She has a history of UTIs. Home Medications Home Medications Medication Instructions Recorded Confirmed Type aspirin 81 mg PO QAM 08/02/18 05/06/20 History atorvastatin 40 mg PO HS 08/02/18 05/06/20 History fluticasone propionate 2 spray INTRANASAL HS 08/02/18 05/06/20 History gabapentin 600 mg PO TID 08/02/18 05/06/20 History magnesium oxide 400 mg PO QAM 08/02/18 05/06/20 History multivitamin with minerals 1 tab PO QAM 08/02/18 05/06/20 History [Multiple Vitamin-Minerals] Lactinex 1 tab PO QAM 10/13/19 05/06/20 History albuterol sulfate [Ventolin HFA] 2 puff INHALATION Q4 PRN 10/13/19 05/06/20 History montelukast 10 mg PO QAM 10/13/19 05/06/20 History acetaminophen 650 mg PO Q6H PRN MDD 3gm/24hr 11/18/19 05/06/20 History amiodarone 200 mg PO QAM 11/18/19 05/06/20 History fluticasone propion-salmeterol 1 inh INHALATION BID 11/18/19 05/06/20 History [Advair Diskus] bisacodyl [Dulcolax (bisacodyl)] 10 mg NM DAILY PRN 01/12/20 05/06/20 History levothyroxine 125 mcg PO DAILYBB 01/12/20 05/06/20 History magnesium hydroxide [Milk of 30 ml PO DAILY PRN 01/12/20 05/06/20 History Magnesia] diclofenac sodium [Voltaren] 4 g EXT QID #1 tube 01/20/20 05/06/20 Rx insulin lispro [Humalog U-100 1 sliding scale dose SUBCUT 01/20/20 05/06/20 Rx Insulin] USEASDIRECTD PRN #0 ml metoprolol tartrate 12.5 mg PO Q12H #60 tab 01/20/20 05/06/20 Rx ipratropium-albuterol 3 ml INHALATION .EVERY 2 HOURS PRN 02/02/20 05/06/20 History Bactroban 2% 1 applic TOPICAL BID 05/06/20 05/06/20 History acetic acid 0.25 % IRRIGATION BID 05/06/20 05/06/20 History ferrous sulfate 325 mg PO QAM 05/06/20 05/06/20 History furosemide [Lasix] 40 mg PO BID 05/06/20 05/06/20 History ipratropium-albuterol 3 ml INHALATION TID 05/06/20 05/06/20 History menthol-zinc oxide [Calmoseptine] 1 applic TOPICAL TID 05/06/20 05/06/20 History metformin 500 mg PO BID 05/06/20 05/06/20 History ostomy supplies [Skin Prep Wipes] 05/06/20 05/06/20 History sitagliptin 50 mg PO QAM 05/06/20 05/06/20 History warfarin 4 mg PO HS 05/06/20 05/06/20 History Allergies Allergy/AdvReac Type Severity Reaction Status Date / Time Iodinated Contrast Media Allergy Intermediate HIVES Verified 05/06/20 04:19 Sulfa (Sulfonamide Allergy Intermediate HIVES Verified 05/06/20 04:19 Antibiotics) vancomycin Allergy Intermediate HIVES, GI Verified 05/06/20 04:19 UPSET latex Allergy Mild LOW LEVEL Verified 05/06/20 04:19 LATEX ALLERGY pineapple Allergy Unknown Unknown Verified 05/06/20 04:[address] HICKS Verified 05/06/20 04:19 ASKED THAT ALLERGY BE ADDED 07/31/08 Past Med/Surg History Medical History A-fib Acquired lymphedema Acute kidney failure Anemia Asthma (Chronic) CHF exacerbation (Acute) CVA (cerebral vascular accident) (Acute) DM type 2 (diabetes mellitus, type 2) (Chronic) History of left shoulder replacement (Acute) Hyperlipidemia Hypertension Hypothyroid Left cervical radiculopathy (Acute) Morbid obesity with body mass index of 50 or higher (Chronic) Obesity Obstructive sleep apnea Osteoarthritis (Chronic) Proteinuria Respiratory failure with hypoxia and hypercapnia Sleep apnea "on cpap" Stroke-like symptoms Wound cellulitis Surgical History Normal colonoscopy Performed by Dr. Mauricio in 07/2007; negative exam. Recommended repeat in 10 years. Status post bilateral total hip replacement (Chronic) Status post total shoulder arthroplasty Family History Mother Alcoholism COPD (chronic obstructive pulmonary disease) Cirrhosis Father Coronary heart disease Myocardial infarction Brother Hypertension Gout Uncle Colorectal cancer Other Family history non-contributory Social History Preferred Language: Taiwanese Communication Ability: Effective Viscose Cellar Charge Hand Required: No Beliefs That Will Affect Care: None marital status: Single Current Living Situation: Longterm Current Living Situation Comment: Sara Feels Safe at Home: Yes Smoking Status: Never smoker Second Hand Exposure: No ; Hx Alcohol Use: No Hx Substance Use: No Review of Systems A total of 10 systems reviewed and were otherwise negative Physical Exam Vital Signs Vital Signs - 24 hr 05/06/20 04:01 05/06/20 04:04 05/06/20 04:18 Temperature 39.5 C H Temperature Source Oral Pulse Rate 100 H 104 H 99 H Pulse Rate from SpO2 Sensor 100 H 99 H Respiratory Rate 24 20 20 Respiratory Effort / Characteristics Non-Labored Spontaneous Blood Pressure 101/69 143/76 H Blood Pressure Mean 79 98 Blood Pressure Position Sitting Pulse Oximetry 92 95 93 Oxygen Delivery Method Nasal Cannula Nasal Cannula Oxygen Flow Rate 4 4 Sepsis Recent Fever Within 48 Hours Yes Sepsis New/Unexplained Change in Mental Status No Sepsis Action Taken by Nursing No Action Required 05/06/20 04:30 05/06/20 04:33 05/06/20 04:35 Temperature Temperature Source Pulse Rate 96 H 97 H Pulse Rate from SpO2 Sensor 97 H 101 H 97 H Respiratory Rate 23 20 20 Respiratory Effort / Characteristics Blood Pressure 86/58 L 91/55 L 75/58 L Blood Pressure Mean 70 57 61 Blood Pressure Position Pulse Oximetry 92 95 92 Oxygen Delivery Method Nasal Cannula Nasal Cannula Oxygen Flow Rate 4 4 Sepsis Recent Fever Within 48 Hours Sepsis New/Unexplained Change in Mental Status Sepsis Action Taken by Nursing 05/06/20 04:45 05/06/20 05:00 05/06/20 05:03 Temperature 39.2 C H Temperature Source Oral Pulse Rate 95 H 94 H Pulse Rate from SpO2 Sensor 95 H 96 H Respiratory Rate 20 26 H Respiratory Effort / Characteristics Blood Pressure 93/46 L 74/52 L Blood Pressure Mean 70 59 Blood Pressure Position Pulse Oximetry 92 94 Oxygen Delivery Method Nasal Cannula Oxygen Flow Rate 4 Sepsis Recent Fever Within 48 Hours Sepsis New/Unexplained Change in Mental Status Sepsis Action Taken by Nursing 05/06/20 05:16 05/06/20 05:19 05/06/20 05:30 Temperature Temperature Source Pulse Rate 94 H 92 H 91 H Pulse Rate from SpO2 Sensor 95 H 92 H 92 H Respiratory Rate 19 24 21 Respiratory Effort / Characteristics Blood Pressure 77/32 L 83/52 L 88/58 L Blood Pressure Mean 34 56 67 Blood Pressure Position Pulse Oximetry 92 93 91 Oxygen Delivery Method Nasal Cannula Nasal Cannula Nasal Cannula Oxygen Flow Rate 4 4 4 Sepsis Recent Fever Within 48 Hours Sepsis New/Unexplained Change in Mental Status Sepsis Action Taken by Nursing 05/06/20 05:31 05/06/20 05:45 05/06/20 05:46 Temperature Temperature Source Pulse Rate 90 90 89 Pulse Rate from SpO2 Sensor 90 91 H 90 Respiratory Rate 22 23 21 Respiratory Effort / Characteristics Blood Pressure 75/56 L 86/52 L Blood Pressure Mean 63 58 Blood Pressure Position Pulse Oximetry 92 91 92 Oxygen Delivery Method Nasal Cannula Nasal Cannula Oxygen Flow Rate 4 4 Sepsis Recent Fever Within 48 Hours Sepsis New/Unexplained Change in Mental Status Sepsis Action Taken by Nursing VITALS: Vitals are noted on the nurse's note and reviewed by myself. Vital signs febrile and tachycardic. GENERAL: Ill-appearing morbidly obese patient following commands SKIN: Right hip area with wound ulcer that is chronic per patient, stage I pressure ulcer to the buttock region, the rest of the skin was without rashes, erythema, edema, or bruising. There is no tenting of the skin. Capillary reflex less than 2 seconds. HEAD: Normocephalic atraumatic. EARS: External auditory canals clear, tympanic membranes pearly domínguez without erythema or effusion bilaterally. EYES: Pupils equal round and reactive to light and accommodation. Conjunctivae without injection, sclerae without icterus. Extraocular movements intact. NOSE: Patent, turbinates without inflammation or discharge. No sinus tenderness. MOUTH: Mucous membranes mildly dry pharynx without erythema or exudate. Uvula midline. Airway patent. Tongue does not deviate. NECK: Supple without nuchal rigidity. No lymphadenopathy. No thyromegaly. Cervical spine is nontender. No JVD. HEART: Tachycardic rate and rhythm LUNGS: Diffuse inspiratory and end expiratory wheezes. No retractions or accessory muscle use. ABDOMEN: Positive bowel sounds x 4. Normal tympanic percussion. Soft, protuberant, obese, nontender, without masses or organomegaly. Melgar sign negative. No guarding or rebound tenderness. No CVA tenderness MUSCULOSKELETAL: No muscle atrophy noted. NEURO: Patient was alert and oriented to person place and time. Normal sensation to light and sharp touch. No focal neurological deficits. Course Administered Medications Discontinued Medications Dexamethasone Sodium Phosphate (Decadron Pf) 10 mg IV NOW ONE Stop: 05/06/20 04:39 Last Admin: 05/06/20 04:57 Dose: 10 mg Documented by: [id number] Sodium Chloride (Nss 1000ml) 2,000 mls @ 999 mls/hr IV .Q2H1M ONE Stop: 05/06/20 05:52 Last Infusion: 05/06/20 05:53 Dose: 0 mls/hr Documented by: [id number] Admin: 05/06/20 03:52 Dose: 999 mls/hr Documented by: [id number] Piperacillin Sod/Tazobactam Sod (Zosyn) 4.5 gm in 120 mls @ 240 mls/hr IV NOW ONE Stop: 05/06/20 04:21 Last Infusion: 05/06/20 04:57 Dose: 0 mls/hr Documented by: [id number] Admin: 05/06/20 04:09 Dose: 240 mls/hr Documented by: [id number] Daptomycin 550 mg/ Syringe 11 mls @ 5.5 mls/min IV NOW ONE; Protocol Stop: 05/06/20 04:55 Last Admin: 05/06/20 05:21 Dose: 5.5 mls/min Documented by: [id number] Ibuprofen (Motrin) 800 mg PO NOW STA Stop: 05/06/20 03:48 Last Admin: 05/06/20 04:07 Dose: 800 mg Documented by: [id number] Critical Care Time Critical Care Time: Yes Total Critical Care Time: 45 I have personally spent 45 minutes of critical care time in the direct management of this patient. This includes bedside care, interpretation of diagnostic studies, and testing, discussion with consultants, patient, and family members, and other required patient management activities. This 45 minutes is in excess of all separately billable procedures. Medical Decision Making Medical Records Attestation: I reviewed the patient's medical records. Home Medications Current Medication List: was personally reviewed by me Laboratory Data Attestation: I reviewed the patient's lab results. Result diagrams: 05/06/20 03:53 05/06/20 03:53 Lab Results 05/06/20 05/06/20 05/06/20 Range/Units 03:53 03:53 03:53 WBC 8.02 (4.8-10.8) K/uL RBC 3.50 L (4.2-5.4) M/uL Hgb 9.4 L (12.0-16.0) g/dL Hct 29.7 L (37-47) % MCV 84.9 (80-100) fL MCH 26.9 (25-34) pg MCHC 31.6 L (32-36) g/dL RDW Std Deviation 55.9 H (36.4-46.3) fL RDW Coeff of Mehnaz 17.9 H (11.5-14.5) % Plt Count 250 (130-400) K/uL MPV 9.6 (7.4-10.4) fL Immature Gran % (Auto) 0.9 % Neut % (Auto) 93.6 % Lymph % (Auto) 3.0 % Ziebach % (Auto) 0.7 % Eos % (Auto) 1.6 % Baso % (Auto) 0.2 % Neut # (Auto) 7.50 H (1.4-6.5) K/uL Lymph # (Auto) 0.24 L (1.2-3.4) K/uL [place] # (Auto) 0.06 L (0.11-0.59) K/uL Eos # (Auto) 0.13 (0-0.5) K/uL Baso # (Auto) 0.02 (0-0.2) K/uL Immature Gran # (Auto) 0.07 H (0.00-0.02) K/uL PT 27.9 H (9.0-12.0) Seconds INR 2.8 H (0.9-1.1) APTT 40.4 H (21.0-31.0) Seconds PTT Ratio 1.4 ABG pH ABG pCO2 ABG pO2 ABG HCO3 ABG O2 Saturation ABG Base Excess Darrel Test Barometric Pressure Oxygen Given Sodium (136-145) mmol/L Potassium (3.5-5.1) mmol/L Chloride (98-107) mmol/L Carbon Dioxide (21-32) mmol/L Anion Gap (3-11) BUN (7-18) mg/dl Creatinine (0.6-1.2) mg/dl Est Cr Clr Drug Dosing ml/min Est GFR ( Amer) Est GFR (Non-Af Amer) BUN/Creatinine Ratio (10-20) Glucose (70-99) mg/dl Lactate (0.4-2.0) mmol/L Calcium (8.5-10.1) mg/dl Magnesium (1.8-2.4) mg/dl Total Bilirubin (0.2-1) mg/dl AST (15-37) U/L ALT (12-78) U/L Alkaline Phosphatase (45-117) U/L Troponin I (0-0.045) ng/ml NT-Pro-B Natriuret Pep (0-900) pg/ml Total Protein (6.4-8.2) gm/dl Albumin (3.4-5.0) gm/dl Globulin (2.5-4.0) gm/dl Albumin/Globulin Ratio (0.9-2) Procalcitonin 5.67 H (0-0.5) ng/ml TSH (0.300-4.500) uIu/ml Urine Color Urine Appearance (Clear) Urine pH (4.5-7.5) Ur Specific Addison (1.000-1.030) Urine Protein (Negative) Urine Glucose (UA) (Negative) Urine Ketones (Negative) Urine Blood (Negative) Urine Nitrite (Negative) Urine Bilirubin (Negative) Urine Urobilinogen (Negative) Ur Leukocyte Esterase (Negative) Urine WBC (Auto) (0-5) /hpf Urine RBC (Auto) (0-4) /hpf U Hyaline Cast (Auto) (0-5) /lpf U Epithel Cells (Auto) (0-5) /lpf Urine Bacteria (Auto) (Negative) COVID-19 PCR (Negative) 05/06/20 05/06/20 05/06/20 Range/Units 03:53 03:53 04:10 WBC (4.8-10.8) K/uL RBC (4.2-5.4) M/uL Hgb (12.0-16.0) g/dL Hct (37-47) % MCV (80-100) fL MCH (25-34) pg MCHC (32-36) g/dL RDW Std Deviation (36.4-46.3) fL RDW Coeff of Mehnaz (11.5-14.5) % Plt Count (130-400) K/uL MPV (7.4-10.4) fL Immature Gran % (Auto) % Neut % (Auto) % Lymph % (Auto) % Ziebach % (Auto) % Eos % (Auto) % Baso % (Auto) % Neut # (Auto) (1.4-6.5) K/uL Lymph # (Auto) (1.2-3.4) K/uL [place] # (Auto) (0.11-0.59) K/uL Eos # (Auto) (0-0.5) K/uL Baso # (Auto) (0-0.2) K/uL Immature Gran # (Auto) (0.00-0.02) K/uL PT (9.0-12.0) Seconds INR (0.9-1.1) APTT (21.0-31.0) Seconds PTT Ratio ABG pH ABG pCO2 ABG pO2 ABG HCO3 ABG O2 Saturation ABG Base Excess Darrel Test Barometric Pressure Oxygen Given Sodium 140 (136-145) mmol/L Potassium 4.3 (3.5-5.1) mmol/L Chloride 103 (98-107) mmol/L Carbon Dioxide 28 (21-32) mmol/L Anion Gap 9.0 (3-11) BUN 47 H (7-18) mg/dl Creatinine 1.76 H (0.6-1.2) mg/dl Est Cr Clr Drug Dosing 46.6 ml/min Est GFR ( Amer) 34.6 Est GFR (Non-Af Amer) 29.8 BUN/Creatinine Ratio 26.9 H (10-20) Glucose 177 H (70-99) mg/dl Lactate 2.0 (0.4-2.0) mmol/L Calcium 9.0 (8.5-10.1) mg/dl Magnesium 1.8 (1.8-2.4) mg/dl Total Bilirubin 0.6 (0.2-1) mg/dl AST 24 (15-37) U/L ALT 35 (12-78) U/L Alkaline Phosphatase 114 (45-117) U/L Troponin I 0.066 H* (0-0.045) ng/ml NT-Pro-B Natriuret Pep 6548 H (0-900) pg/ml Total Protein 7.4 (6.4-8.2) gm/dl Albumin 2.2 L (3.4-5.0) gm/dl Globulin 5.2 H (2.5-4.0) gm/dl Albumin/Globulin Ratio 0.4 L (0.9-2) Procalcitonin (0-0.5) ng/ml TSH 2.460 (0.300-4.500) uIu/ml Urine Color Urine Appearance (Clear) Urine pH (4.5-7.5) Ur Specific Addison (1.000-1.030) Urine Protein (Negative) Urine Glucose (UA) (Negative) Urine Ketones (Negative) Urine Blood (Negative) Urine Nitrite (Negative) Urine Bilirubin (Negative) Urine Urobilinogen (Negative) Ur Leukocyte Esterase (Negative) Urine WBC (Auto) (0-5) /hpf Urine RBC (Auto) (0-4) /hpf U Hyaline Cast (Auto) (0-5) /lpf U Epithel Cells (Auto) (0-5) /lpf Urine Bacteria (Auto) (Negative) COVID-19 PCR NEGATIVE (Negative) 05/06/20 05/06/20 Range/Units 04:25 05:17 WBC (4.8-10.8) K/uL RBC (4.2-5.4) M/uL Hgb (12.0-16.0) g/dL Hct (37-47) % MCV (80-100) fL MCH (25-34) pg MCHC (32-36) g/dL RDW Std Deviation (36.4-46.3) fL RDW Coeff of Mehnaz (11.5-14.5) % Plt Count (130-400) K/uL MPV (7.4-10.4) fL Immature Gran % (Auto) % Neut % (Auto) % Lymph % (Auto) % [place]iebach % (Auto) % Eos % (Auto) % Baso % (Auto) % Neut # (Auto) (1.4-6.5) K/uL Lymph # (Auto) (1.2-3.4) K/uL [place] # (Auto) (0.11-0.59) K/uL Eos # (Auto) (0-0.5) K/uL Baso # (Auto) (0-0.2) K/uL Immature Gran # (Auto) (0.00-0.02) K/uL PT (9.0-12.0) Seconds INR (0.9-1.1) APTT (21.0-31.0) Seconds PTT Ratio ABG pH Cancelled ABG pCO2 Cancelled ABG pO2 Cancelled ABG HCO3 Cancelled ABG O2 Saturation Cancelled ABG Base Excess Cancelled Darrel Test Cancelled Barometric Pressure Cancelled Oxygen Given Cancelled Sodium (136-145) mmol/L Potassium (3.5-5.1) mmol/L Chloride (98-107) mmol/L Carbon Dioxide (21-32) mmol/L Anion Gap (3-11) BUN (7-18) mg/dl Creatinine (0.6-1.2) mg/dl Est Cr Clr Drug Dosing ml/min Est GFR ( Amer) Est GFR (Non-Af Amer) BUN/Creatinine Ratio (10-20) Glucose (70-99) mg/dl Lactate (0.4-2.0) mmol/L Calcium (8.5-10.1) mg/dl Magnesium (1.8-2.4) mg/dl Total Bilirubin (0.2-1) mg/dl AST (15-37) U/L ALT (12-78) U/L Alkaline Phosphatase (45-117) U/L Troponin I (0-0.045) ng/ml NT-Pro-B Natriuret Pep (0-900) pg/ml Total Protein (6.4-8.2) gm/dl Albumin (3.4-5.0) gm/dl Globulin (2.5-4.0) gm/dl Albumin/Globulin Ratio (0.9-2) Procalcitonin (0-0.5) ng/ml TSH (0.300-4.500) uIu/ml Urine Color Dark Yellow Urine Appearance Cloudy A (Clear) Urine pH 5.0 (4.5-7.5) Ur Specific Addison 1.019 (1.000-1.030) Urine Protein 3+ H (Negative) Urine Glucose (UA) Negative (Negative) Urine Ketones Negative (Negative) Urine Blood 3+ H (Negative) Urine Nitrite Negative (Negative) Urine Bilirubin Negative (Negative) Urine Urobilinogen Negative (Negative) Ur Leukocyte Esterase Trace H (Negative) Urine WBC (Auto) 10-30 H (0-5) /hpf Urine RBC (Auto) >30 H (0-4) /hpf U Hyaline Cast (Auto) 1-5 (0-5) /lpf U Epithel Cells (Auto) >30 H (0-5) /lpf Urine Bacteria (Auto) 4+ H (Negative) COVID-19 PCR (Negative) Imaging Data Attestation: I personally reviewed and interpreted this imaging study as follows: Blood Pressure Blood Pressure Findings: Elevated blood pressure Blood Pressure Disposition: Referred to patients primary care provider [facility] Narrative Prior records/ancillary studies reviewed. Triage Nursing notes reviewed. Additional history obtained from EMS. The patient's history was concerning for fever cough and congestion. Differential diagnosis: Etiologies such as sepsis, UTI, pneumonia, metabolic, electrolyte abnormalities, cardiac sources, intracerebral event, toxicologic, neurologic, as well as others were entertained. Physical examination: As above. Pertinent findings were febrile, tachycardic and hypoxic. ER treatment provided: IV fluid resuscitation with Normal saline solution, 2000 mL bolus. Blood and urine cultures Antibiotics: Zosyn An order was placed for continuous cardiac monitoring. The monitor shows a rate of 60-1 20 with a sinus rhythm. On reassessment the patient vital signs improved. Diagnostics interpretation by me: ECG: Ordered for dyspnea EKG: Normal sinus, normal intervals, no acute ST-T wave changes, rate of 101. Impression sinus tachycardia interpreted by myself I think arrhythmia is unlikely. EKG shows normal sinus rhythm with no interval abnormalities such as QT prolongation or WPW. There are no findings to suggest Brugada syndrome. Cardiac monitoring in the emergency department reveals no tachycardic or bradycardic dysrhythmia. Hypertrophic cardiomyopathy was considered but there are no clear historical elements pointing toward this. EKG is not suggestive. The QRS voltage is not extremely large and there are no suggestive Q waves. The labs revealed stable anemia on CBC. Chemistry panel revealed creatinine 1.7. LFTs revealed. Cardiac enzymes were elevated, troponin 0 0.066, BNP elevated. Serum Lactate measurement was 2 Procalcitonin was elevated Blood and urine cultures are pending. neg COVID Imaging studies: Chest xray revealed concerning for right lower lobe pneumonia per my interpretation. No free air or pneumothorax.. Consultation: A consultation was placed with Dr. Raghav horton. The case was discussed and diagnostics were reviewed. The patient was evaluated in the ER for further treatment. Exam and history seem consistent with sepsis. 2 IV lines were immediately initiated. Patient was written for IV fluids and broad-spectrum antibiotics. Isolation precautions were implemented. COVID test was sent and was negative. Lactic was 2. Elevated procalcitonin. Elevated troponin. Normal EKG. Patient was reassessed multiple times. The blood pressure did drop but improved with IV fluids. Patient is a full code. Medicine was consulted. Patient is agreeable to treatment plan of admission. The chart was completed utilizing [employer] Speech voice recognition software. G rammatical errors, random word insertions, pronoun errors, and incomplete sentences are an occassional consequence of this system due to software limitations, ambient noise, and hardware issues. Any formal questions or concerns about the content, text, or information contained within the body of th is dictation should be directly addressed to the physician grooming assistant for clarification. Impression & Plan Sepsis, Elevated troponin, Pneumonia, Acute UTI Discharge Plan Visit Data Chief Complaint: Shortness of Breath/Dyspnea Stated Complaint: SHORT OF BREATH ED Provider: Mars Pickett ED Midlevel Provider: Sherry Sutton Discharge Problem: Sepsis, Elevated troponin, Pneumonia, Acute UTI Patient Disposition: Being Evaluated by Hospitalist Condition: Fair Forms Stand Alone Forms: My [facility] Prescriptions Prescriptions: No Action gabapentin 600 mg tablet 600 mg PO TID RF: 0 fluticasone propionate 50 mcg/actuation spray,suspension 2 spray Intranasal HS RF: 0 atorvastatin 40 mg tablet 40 mg PO HS RF: 0 aspirin 81 mg Tablet,Delayed Release (Dr/Ec) 81 mg PO QAM RF: 0 magnesium oxide 400 mg (241.3 mg magnesium) Tablet 400 mg PO QAM RF: 0 multivitamin with minerals [Multiple Vitamin-Minerals] Tablet 1 tab PO QAM RF: 0 fluticasone propion-salmeterol [Advair Diskus] 250-50 mcg/dose blister with device 1 inh INHALATION BID RF: 0 acetaminophen 325 mg Tablet 650 mg PO Q6H MDD 3gm/24hr PRN (Reason: temp>100/PAIN) RF: 0 amiodarone 200 mg tablet 200 mg PO QAM RF: 0 metformin 500 mg Tablet 500 mg PO BID RF: 0 warfarin 4 mg Tablet 4 mg PO HS RF: 0 (DME) Skin Prep Wipes Misc MISCELLANEOUS RF: 0 acetic acid 0.25 % Solution 0.25 % irrigation BID RF: 0 Calmoseptine 0.44-20.6 % Ointment 1 applic TOPICAL TID RF: 0 Bactroban 2% 1 applic topical BID RF: 0 furosemide [Lasix] 40 mg tablet 40 mg PO BID RF: 0 ipratropium-albuterol 0.5 mg-3 mg(2.5 mg base)/3 mL solution for nebulization 3 ml INHALATION TID RF: 0 ferrous sulfate 325 mg (65 mg iron) tablet 325 mg PO QAM RF: 0 sitagliptin 50 mg tablet 50 mg PO QAM RF: 0 Lactinex 1 million cell Tablet,Chewable 1 tab PO QAM RF: 0 montelukast 10 mg Tablet 10 mg PO QAM RF: 0 albuterol sulfate [Ventolin HFA] 90 mcg/actuation HFA aerosol inhaler 2 puff INHALATION Q4 PRN (Reason: Shortness Of Breath Or Wheezing) RF: 0 magnesium hydroxide [Milk of Magnesia] 400 mg/5 mL Suspension 30 ml PO DAILY PRN (Reason: Constipation) RF: 0 levothyroxine 125 mcg Tablet 125 mcg PO DAILYBB RF: 0 bisacodyl [Dulcolax (bisacodyl)] 10 mg Suppository 10 mg NM DAILY PRN (Reason: Constipation) RF: 0 diclofenac sodium [Voltaren] 1 % Gel 4 g EXT QID Qty: 1 RF: 0 insulin lispro [Humalog U-100 Insulin] 100 unit/mL Solution 1 sliding scale dose SUBCUT USEASDIRECTD PRN (Reason: elevated bs) Qty: 0 RF: 0 metoprolol tartrate 25 mg tablet 12.5 mg PO Q12H Qty: 60 RF: 0 ipratropium-albuterol 0.5 mg-3 mg(2.5 mg base)/3 mL solution for nebulization 3 ml INHALATION .EVERY 2 HOURS PRN (Reason: Shortness Of Breath Or Wheezing) RF: 0 Referrals Referrals: [facility] [Primary Care Provider] - Discharge Problem: Sepsis Qualifiers: Sepsis type: sepsis due to unspecified organism Sepsis acute organ dysfunction status: unspecified Qualified Code(s): A41.9 - Sepsis, unspecified organism
[2020-05-06 04:35] LABS: Basophils # (auto) 0.02 K/uL (0-0.2); Basophils % (auto) 0.2 %; Eosinophils # (auto) 0.13 K/uL (0-0.5); Eosinophils % (auto) 1.6 %; Hematocrit (blood only) 29.7 % (37-47); Hemoglobin 9.4 g/dL (12.0-16.0); Immature Granulocytes # (auto) 0.07 K/uL (0.00-0.02); Immature Granulocytes % (auto) 0.9 %; Lymphocytes # (auto) 0.24 K/uL (1.2-3.4); Mean Corpuscular Hemoglobin 26.9 pg (25-34); Mean Corpuscular Hgb Conc 31.6 g/dL (32-36); Mean Corpuscular Volume 84.9 fL (80-100); Mean Platelet Volume 9.6 fL (7.4-10.4); Monocytes # (auto) 0.06 K/uL (0.11-0.59); Monocytes % (auto) 0.7 %; Neutrophils % (auto) 93.6 %; Platelet Count 250 K/uL (130-400); RDW Coefficient of Variation 17.9 % (11.5-14.5); RDW Standard Deviation 55.9 fL (36.4-46.3); White Blood Count 8.02 K/uL (4.8-10.8)
[2020-05-06 04:37] LABS: Appearance Urine Cloudy (Clear); Bacteria Urine Automated 4+ (Negative); Bilirubin Urine Negative (Negative); Blood Urine 3+ (Negative); Color Urine Dark Yellow; Epithelial Cell Urine Auto >30 /lpf (0-5); Glucose Urine UA Negative (Negative); Ketones Urine Negative (Negative); Leukocyte Esterase Urine Trace (Negative); Nitrite Urine Negative (Negative); Protein Urine 3+ (Negative); RBC Urine Automated >30 /hpf (0-4); Specific Gravity Urine 1.019 (1.000-1.030); Urobilinogen Urine Negative (Negative)
[2020-05-06] MEDS ORDERED: DEXAMETHASONE **PF** INJ 10 MG/ML VIAL IV ONE (04:38)
[2020-05-06] MEDS ORDERED: NOREPINEPHRINE BIT INJ 8 MG in DEXTROSE 5% 500 ML IV SCH (04:45)
[2020-05-06] MEDS ORDERED: STAT IV Infusion **Titration per Protocol STA (04:45)
[2020-05-06 04:50] LABS: INR 2.8 (0.9-1.1); Partial Thromboplastin Ratio 1.4; Partial Thromboplastin Time 40.4 Seconds (21.0-31.0); Prothrombin Time 27.9 Seconds (9.0-12.0)
[2020-05-06] MEDS ORDERED: DAPTOMYCIN CONSULT ACTIVE PRN (04:54)
[2020-05-06] MEDS ORDERED: DAPTOmycin 550 MG in SYRINGE 0 ML IV ONE (04:54)
[2020-05-06 04:57] LABS: Albumin Level 2.2 gm/dl (3.4-5.0); BUN Creatinine Ratio 26.9 (10-20); Creatinine Clr Calc Pharmacy 46.6 ml/min; Est GFR (African American) 34.6; Est GFR (Non-African American) 29.8; Magnesium 1.8 mg/dl (1.8-2.4); Potassium 4.3 mmol/L (3.5-5.1)
[2020-05-06 05:01] LABS: Albumin Globulin Ratio 0.4 (0.9-2); Bilirubin,Total 0.6 mg/dl (0.2-1); Globulin 5.2 gm/dl (2.5-4.0); Total Protein 7.4 gm/dl (6.4-8.2)
[2020-05-06 05:17] LABS: Thyroid Stimulating Hormone 2.46 uIu/ml (0.300-4.500); Troponin I 0.066 ng/ml (0-0.045)
--- NOTE | 2020-05-06 06:15 | XRay Report ---
XR chest 1V portable CLINICAL HISTORY: SEPSIS dyspnea COMPARISON STUDY: 02/02/2020 FINDINGS: Moderate cardiomegaly. Slight prominence of pulmonary vasculature is distended catheter in superior vena cava. IMPRESSION: Mild chronic pulmonary vascular congestion. No focal infiltrate. ACT 112: Negative or not required by law. The above report was generated using voice recognition software. It may contain grammatical, syntax or spelling errors. Electronically signed by: Carlos Boyce M.D. 05/06/2020 6:14 AM
--- NOTE | 2020-05-06 06:34 | History & Physical Report ---
Date of Service May 06, 2020 Assessment & Plan (1) Sepsis: Patient febrile, tachycardic, hypotensive in the ER to 74/52. Possible sources include UTI, bacteremia, less likely right hip wound. Patient with hardware in place, right sided CVC and hip prosthesis. Patient administered 2L NSS in the ER with some improvement in blood pressure, currently 95/56. She has evidence of volume overload on CXR as well as an elevated BNP and troponin. -Admit to PCU -Follow cultures, blood and urine, sent from ER -Will defer additional IVF for now as patient has received 30mL/kg IBW crystalloid resuscitation, evidence of volume overload on imaging and labs. If patient again becomes hypotensive will consider MICU transfer for pressor support -Empiric antibiotic coverage with Daptomycin and Zosyn -Tylenol as needed for fever Present on Admission?: Yes (2) Elevated troponin: Patient with mildly elevated troponin of 0.066. She has had elevated troponin in the past. Also with elevated BNP. She denies chest pain/palpitations. -EKG requested, will follow up results -Trend troponin -Continue home ASA 80mg po daily -Will hold Atorvastatin 40mg po daily for now as patient is on Daptomycin Present on Admission?: Yes (3) Acute UTI: Patient states that her symptoms are similar to prior UTIs in the past. UA with blood/protein/WBC and 4+ bacteria -Follow culture -Zosyn 4.5gm IV q 8, patient with history of Pseudomonas UTI in the past Present on Admission?: Yes (4) Elevated serum creatinine: BUN = 77, Cr=1.76 which is higher than baseline of 1.4-1.6. Possibly secondary to volume loss from recent diarrhea, sepsis. -IVF administered -Avoid nephrotoxic agents -Monitor BUN/Cr/Electrolytes and UOP Present on Admission?: Yes (5) Hypothyroid: Chronic. Stable. TSH=2.46 -Continue Synthroid 125mcg po daily Present on Admission?: Yes (6) Proteinuria: Patient with 3+ protein in urine, low albumin. +Diabetes -Consider initiating low dose Celestino-inhibitor for renal protection after acute issues resolve Present on Admission?: Yes (7) Surgical wound, non healing: Right hip with chronic, non-healing wound. No purulent drainage at present. Some mild erythema -Continue with acetic acid washes and dressing changes daily and as needed -Monitor for evidence of infection Present on Admission?: Yes (8) Afib: Rhythm regular on exam, EKG pending. Rate controlled. Anticoagulated with Coumadin with therapeutic INR of 2.8 -Continue Coumadin 4mg po qHS -Hold Metoprolol in setting of hypotension, sepsis -Monitor INR daily Present on Admission?: Yes (9) Asthma: Diminished breath sounds. No wheezing appreciated -Continue Duonebs -Albuterol PRN -Continue SIngulair Present on Admission?: Yes (10) CVA (cerebral vascular accident): Remote history -Continue ASA -Holding statin Present on Admission?: Yes (11) DM type 2 (diabetes mellitus, type 2): Blood sugar mildly elevated at 177. -Hold Metformin and Sitaglliptin during hospital stay -Lantus 10u BID with ISS -Goal blood sugar 100 - 180 for now Present on Admission?: Yes (12) Hypertension: Blood pressure low in the ER -Holding Metoprolol, Lasix for now -IVF as above, pressor support if needed to maintain MAP >65 -Consider initiating CELESTINO-inhibitor if tolerated after acute issues resolve Present on Admission?: Yes (13) CHF (congestive heart failure): Documented history of CHF. Patient had an echocardiogram performed on 01/13/20which showed normal LV function with EF of 60-65%, no regional WMA, elevated right atrial pressure and IVC. CXR suggestive of pulmonary edema, mildly elevated troponin and BNP -Holding metoprolol as above -Holding Lasix as above F/E/N - NSS x 2 liters given, monitor electrolytes, CC/AHA diet as tolerated Ppx - On Coumadin for AF Code - Full Dispo - Admit to PCU for sepsis Admission and Anticipated Discharge Date Admission Date: 05/06/20 Anticipated date of discharge: 05/09/20 History of Present Illness Chief Complaint: fever, chills Primary Care Provider: [facility] Rekha Khanna is a 64yo C female presenting from [facility] with sepsis. She reports approximately 8 days of watery non-bloody/non-mucoid diarrhea (resolved the last two days), cough productive for clear sputum. Also with nausea and some vomiting. She developed fever, chills and body aches yesterday to 100.9, today her temperature was 101. Patient resides at [facility]. She reports her roommate and some residents down the [place] having diarrhea. She denies recent travel or contact with Covid- 19 positive people. Patient denies headache, visual change, chest pain, SOB. She denies abdominal pain, dysuria/hematuria. No rashes on her skin. She has a chronic non-healing wound at the right lateral hip at the site of a prosthesis. Wound is cleaned with acetic acid wash and dressed with Bactroban. She denies worsening pain or drainage at the site. No pain in her leg. No additional complaints at this time. Patient was quite ill in January with E. coli bacteremia (MDR, Sn to Zosyn). She required MICU care with vasopressor support. Ultimately discharged to complete 4 weeks of Ertapenem IV therapy. ER Course: Daptomycin 550mg, Dexamethasone 10mg IV, Ibuprofen 800mg PO, Zosyn 4.5gm, NSS x 2 L Allergies Allergy/AdvReac Type Severity Reaction Status Date / Time Iodinated Contrast Media Allergy Intermediate HIVES Verified 05/06/20 04:19 Sulfa (Sulfonamide Allergy Intermediate HIVES Verified 05/06/20 04:19 Antibiotics) vancomycin Allergy Intermediate HIVES, GI Verified 05/06/20 04:19 UPSET latex Allergy Mild LOW LEVEL Verified 05/06/20 04:19 LATEX ALLERGY pineapple Allergy Unknown Unknown Verified 05/06/20 04:[address] HICKS Verified 05/06/20 04:19 ASKED THAT ALLERGY BE ADDED 07/31/08 Home Medications Home Medications Medication Instructions Recorded Confirmed Type aspirin 81 mg PO QAM 08/02/18 05/06/20 History atorvastatin 40 mg PO HS 08/02/18 05/06/20 History fluticasone propionate 2 spray INTRANASAL HS 08/02/18 05/06/20 History gabapentin 600 mg PO TID 08/02/18 05/06/20 History magnesium oxide 400 mg PO QAM 08/02/18 05/06/20 History multivitamin with minerals 1 tab PO QAM 08/02/18 05/06/20 History [Multiple Vitamin-Minerals] Lactinex 1 tab PO QAM 10/13/19 05/06/20 History albuterol sulfate [Ventolin HFA] 2 puff INHALATION Q4 PRN 10/13/19 05/06/20 History montelukast 10 mg PO QAM 10/13/19 05/06/20 History acetaminophen 650 mg PO Q6H PRN MDD 3gm/24hr 11/18/19 05/06/20 History amiodarone 200 mg PO QAM 11/18/19 05/06/20 History fluticasone propion-salmeterol 1 inh INHALATION BID 11/18/19 05/06/20 History [Advair Diskus] bisacodyl [Dulcolax (bisacodyl)] [address] DAILY PRN 01/12/20 05/06/20 History levothyroxine 125 mcg PO DAILYBB 01/12/20 05/06/20 History magnesium hydroxide [Milk of 30 ml PO DAILY PRN 01/12/20 05/06/20 History Magnesia] diclofenac sodium [Voltaren] 4 g EXT QID #1 tube 01/20/20 05/06/20 Rx insulin lispro [Humalog U-100 1 sliding scale dose SUBCUT 01/20/20 05/06/20 Rx Insulin] USEASDIRECTD PRN #0 ml metoprolol tartrate 12.5 mg PO Q12H #60 tab 01/20/20 05/06/20 Rx ipratropium-albuterol 3 ml INHALATION .EVERY 2 HOURS PRN 02/02/20 05/06/20 History Bactroban 2% 1 applic TOPICAL BID 05/06/20 05/06/20 History acetic acid 0.25 % IRRIGATION BID 05/06/20 05/06/20 History ferrous sulfate 325 mg PO QAM 05/06/20 05/06/20 History furosemide [Lasix] 40 mg PO BID 05/06/20 05/06/20 History ipratropium-albuterol 3 ml INHALATION TID 05/06/20 05/06/20 History menthol-zinc oxide [Calmoseptine] 1 applic TOPICAL TID 05/06/20 05/06/20 History metformin 500 mg PO BID 05/06/20 05/06/20 History ostomy supplies [Skin Prep Wipes] 05/06/20 05/06/20 History sitagliptin 50 mg PO QAM 05/06/20 05/06/20 History warfarin 4 mg PO HS 05/06/20 05/06/20 History Past Med/Surg History Medical History A-fib Acquired lymphedema Acute kidney failure Anemia Asthma (Chronic) CHF exacerbation (Acute) CVA (cerebral vascular accident) (Acute) DM type 2 (diabetes mellitus, type 2) (Chronic) History of left shoulder replacement (Acute) Hyperlipidemia Hypertension Hypothyroid Left cervical radiculopathy (Acute) Morbid obesity with body mass index of 50 or higher (Chronic) Obesity Obstructive sleep apnea Osteoarthritis (Chronic) Proteinuria Respiratory failure with hypoxia and hypercapnia Sleep apnea "on cpap" Stroke-like symptoms Wound cellulitis Surgical History Normal colonoscopy Performed by Dr. Mauricio in 07/2007; negative exam. Recommended repeat in 10 years. Status post bilateral total hip replacement (Chronic) Status post total shoulder arthroplasty Family History Mother Alcoholism COPD (chronic obstructive pulmonary disease) Cirrhosis Father Coronary heart disease Myocardial infarction Brother Hypertension Gout Uncle Colorectal cancer Other Family history non-contributory Social History Preferred Language: Swiss Communication Ability: Effective Master Data Analyst Required: No Beliefs That Will Affect Care: None marital status: Single Current Living Situation: Jail Current Living Situation Comment: Sara Feels Safe at Home: Yes Smoking Status: Never smoker Second Hand Exposure: No ; Hx Alcohol Use: No Hx Substance Use: No Review of Systems Review of Systems: All systems reviewed & are unremarkable except as noted in HPI & below Physical Exam Physical Exam: General: morbidly obese female patient resting comfortably in bed, NAD, non-toxic in appearance, AA&O x 4 Skin: warm, dry, wound at right thigh with no bleeding, drainage or erythema, stage I decubitus on back HEENT: NC/AT, PERRL, EOMI, anicteric sclera, conjunctiva without injection, external ear normal to inspection and nontender, nares patent, moist mucus membranes, dentition intact, no oropharyngeal lesions, neck supple, trachea midline, no LAD, no thyromegaly, no JVD Heart: +S1/S2, regular, no m/r/g, exam limited due to body habitus Lungs: diminished breath sounds bilaterally, faint bibasilar crackles, no rhonchi/wheezes Abd: +BS, soft, NT/ND, no masses/organomegaly/ascites Ext: warm, 2+ pulses in UE/LE bilaterally, no clubbing/cyanosis or edema Neuro: nonfocal, patient AA&O x 4, speech intact, no facial droop, moving all extremities on command with equal strength 5/5 Results & Data Results & Data ([facility]) Vital Signs (Past 12 Hours) Vital Signs Temp Pulse Resp BP Pulse Ox 05/06/20 06:15 87 21 91/63 L 91 05/06/20 06:00 90 19 88/60 L 91 05/06/20 05:46 89 21 86/52 L 92 05/06/20 05:45 90 23 75/56 L 91 05/06/20 05:31 90 22 92 05/06/20 05:30 91 H 21 88/58 L 91 05/06/20 05:19 92 H 24 83/52 L 93 05/06/20 05:16 94 H 19 77/32 L 92 05/06/20 05:03 39.2 C H 05/06/20 05:00 94 H 26 H 74/52 L 94 05/06/20 04:45 95 H 20 93/46 L 92 05/06/20 04:35 97 H 20 75/58 L 92 05/06/20 04:33 96 H 20 91/55 L 95 05/06/20 04:30 23 86/58 L 92 05/06/20 04:18 99 H 20 93 05/06/20 04:04 39.5 C H 104 H 20 143/76 H 95 05/06/20 04:01 100 H 24 101/69 92 Laboratory Results Lab Results 05/06/20 05/06/20 05/06/20 Range/Units 03:53 03:53 03:53 WBC 8.02 (4.8-10.8) K/uL RBC 3.50 L (4.2-5.4) M/uL Hgb 9.4 L (12.0-16.0) g/dL Hct 29.7 L (37-47) % MCV 84.9 (80-100) fL MCH 26.9 (25-34) pg MCHC 31.6 L (32-36) g/dL RDW Std Deviation 55.9 H (36.4-46.3) fL RDW Coeff of Mehnaz 17.9 H (11.5-14.5) % Plt Count 250 (130-400) K/uL MPV 9.6 (7.4-10.4) fL Immature Gran % (Auto) 0.9 % Neut % (Auto) 93.6 % Lymph % (Auto) 3.0 % Bowie % (Auto) 0.7 % Eos % (Auto) 1.6 % Baso % (Auto) 0.2 % Neut # (Auto) 7.50 H (1.4-6.5) K/uL Lymph # (Auto) 0.24 L (1.2-3.4) K/uL Bowie # (Auto) 0.06 L (0.11-0.59) K/uL Eos # (Auto) 0.13 (0-0.5) K/uL Baso # (Auto) 0.02 (0-0.2) K/uL Immature Gran # (Auto) 0.07 H (0.00-0.02) K/uL PT 27.9 H (9.0-12.0) Seconds INR 2.8 H (0.9-1.1) APTT 40.4 H (21.0-31.0) Seconds PTT Ratio 1.4 ABG pH ABG pCO2 ABG pO2 ABG HCO3 ABG O2 Saturation ABG Base Excess Darrel Test Barometric Pressure Oxygen Given Sodium (136-145) mmol/L Potassium (3.5-5.1) mmol/L Chloride (98-107) mmol/L Carbon Dioxide (21-32) mmol/L Anion Gap (3-11) BUN (7-18) mg/dl Creatinine (0.6-1.2) mg/dl Est Cr Clr Drug Dosing ml/min Est GFR ( Amer) Est GFR (Non-Af Amer) BUN/Creatinine Ratio (10-20) Glucose (70-99) mg/dl Lactate (0.4-2.0) mmol/L Calcium (8.5-10.1) mg/dl Magnesium (1.8-2.4) mg/dl Total Bilirubin (0.2-1) mg/dl AST (15-37) U/L ALT (12-78) U/L Alkaline Phosphatase (45-117) U/L Troponin I (0-0.045) ng/ml NT-Pro-B Natriuret Pep (0-900) pg/ml Total Protein (6.4-8.2) gm/dl Albumin (3.4-5.0) gm/dl Globulin (2.5-4.0) gm/dl Albumin/Globulin Ratio (0.9-2) Procalcitonin 5.67 H (0-0.5) ng/ml TSH (0.300-4.500) uIu/ml Urine Color Urine Appearance (Clear) Urine pH (4.5-7.5) Ur Specific Lewellen (1.000-1.030) Urine Protein (Negative) Urine Glucose (UA) (Negative) Urine Ketones (Negative) Urine Blood (Negative) Urine Nitrite (Negative) Urine Bilirubin (Negative) Urine Urobilinogen (Negative) Ur Leukocyte Esterase (Negative) Urine WBC (Auto) (0-5) /hpf Urine RBC (Auto) (0-4) /hpf U Hyaline Cast (Auto) (0-5) /lpf U Epithel Cells (Auto) (0-5) /lpf Urine Bacteria (Auto) (Negative) COVID-19 PCR (Negative) 05/06/20 05/06/20 05/06/20 Range/Units 03:53 03:53 04:10 WBC (4.8-10.8) K/uL RBC (4.2-5.4) M/uL Hgb (12.0-16.0) g/dL Hct (37-47) % MCV (80-100) fL MCH (25-34) pg MCHC (32-36) g/dL RDW Std Deviation (36.4-46.3) fL RDW Coeff of Mehnaz (11.5-14.5) % Plt Count (130-400) K/uL MPV (7.4-10.4) fL Immature Gran % (Auto) % Neut % (Auto) % Lymph % (Auto) % Bowie % (Auto) % Eos % (Auto) % Baso % (Auto) % Neut # (Auto) (1.4-6.5) K/uL Lymph # (Auto) (1.2-3.4) K/uL Bowie # (Auto) (0.11-0.59) K/uL Eos # (Auto) (0-0.5) K/uL Baso # (Auto) (0-0.2) K/uL Immature Gran # (Auto) (0.00-0.02) K/uL PT (9.0-12.0) Seconds INR (0.9-1.1) APTT (21.0-31.0) Seconds PTT Ratio ABG pH ABG pCO2 ABG pO2 ABG HCO3 ABG O2 Saturation ABG Base Excess Darrel Test Barometric Pressure Oxygen Given Sodium 140 (136-145) mmol/L Potassium 4.3 (3.5-5.1) mmol/L Chloride 103 (98-107) mmol/L Carbon Dioxide 28 (21-32) mmol/L Anion Gap 9.0 (3-11) BUN 47 H (7-18) mg/dl Creatinine 1.76 H (0.6-1.2) mg/dl Est Cr Clr Drug Dosing 46.6 ml/min Est GFR ( Amer) 34.6 Est GFR (Non-Af Amer) 29.8 BUN/Creatinine Ratio 26.9 H (10-20) Glucose 177 H (70-99) mg/dl Lactate 2.0 (0.4-2.0) mmol/L Calcium 9.0 (8.5-10.1) mg/dl Magnesium 1.8 (1.8-2.4) mg/dl Total Bilirubin 0.6 (0.2-1) mg/dl AST 24 (15-37) U/L ALT 35 (12-78) U/L Alkaline Phosphatase 114 (45-117) U/L Troponin I 0.066 H* (0-0.045) ng/ml NT-Pro-B Natriuret Pep 6548 H (0-900) pg/ml Total Protein 7.4 (6.4-8.2) gm/dl Albumin 2.2 L (3.4-5.0) gm/dl Globulin 5.2 H (2.5-4.0) gm/dl Albumin/Globulin Ratio 0.4 L (0.9-2) Procalcitonin (0-0.5) ng/ml TSH 2.460 (0.300-4.500) uIu/ml Urine Color Urine Appearance (Clear) Urine pH (4.5-7.5) Ur Specific [place] (1.000-1.030) Urine Protein (Negative) Urine Glucose (UA) (Negative) Urine Ketones (Negative) Urine Blood (Negative) Urine Nitrite (Negative) Urine Bilirubin (Negative) Urine Urobilinogen (Negative) Ur Leukocyte Esterase (Negative) Urine WBC (Auto) (0-5) /hpf Urine RBC (Auto) (0-4) /hpf U Hyaline Cast (Auto) (0-5) /lpf U Epithel Cells (Auto) (0-5) /lpf Urine Bacteria (Auto) (Negative) COVID-19 PCR NEGATIVE (Negative) 05/06/20 05/06/20 Range/Units 04:25 05:17 WBC (4.8-10.8) K/uL RBC (4.2-5.4) M/uL Hgb (12.0-16.0) g/dL Hct (37-47) % MCV (80-100) fL MCH (25-34) pg MCHC (32-36) g/dL RDW Std Deviation (36.4-46.3) fL RDW Coeff of Mehnaz (11.5-14.5) % Plt Count (130-400) K/uL MPV (7.4-10.4) fL Immature Gran % (Auto) % Neut % (Auto) % Lymph % (Auto) % Bowie % (Auto) % Eos % (Auto) % Baso % (Auto) % Neut # (Auto) (1.4-6.5) K/uL Lymph # (Auto) (1.2-3.4) K/uL Bowie # (Auto) (0.11-0.59) K/uL Eos # (Auto) (0-0.5) K/uL Baso # (Auto) (0-0.2) K/uL Immature Gran # (Auto) (0.00-0.02) K/uL PT (9.0-12.0) Seconds INR (0.9-1.1) APTT (21.0-31.0) Seconds PTT Ratio ABG pH Cancelled ABG pCO2 Cancelled ABG pO2 Cancelled ABG HCO3 Cancelled ABG O2 Saturation Cancelled ABG Base Excess Cancelled Darrel Test Cancelled Barometric Pressure Cancelled Oxygen Given Cancelled Sodium (136-145) mmol/L Potassium (3.5-5.1) mmol/L Chloride (98-107) mmol/L Carbon Dioxide (21-32) mmol/L Anion Gap (3-11) BUN (7-18) mg/dl Creatinine (0.6-1.2) mg/dl Est Cr Clr Drug Dosing ml/min Est GFR ( Amer) Est GFR (Non-Af Amer) BUN/Creatinine Ratio (10-20) Glucose (70-99) mg/dl Lactate (0.4-2.0) mmol/L Calcium (8.5-10.1) mg/dl Magnesium (1.8-2.4) mg/dl Total Bilirubin (0.2-1) mg/dl AST (15-37) U/L ALT (12-78) U/L Alkaline Phosphatase (45-117) U/L Troponin I (0-0.045) ng/ml NT-Pro-B Natriuret Pep (0-900) pg/ml Total Protein (6.4-8.2) gm/dl Albumin (3.4-5.0) gm/dl Globulin (2.5-4.0) gm/dl Albumin/Globulin Ratio (0.9-2) Procalcitonin (0-0.5) ng/ml TSH (0.300-4.500) uIu/ml Urine Color Dark Yellow Urine Appearance Cloudy A (Clear) Urine pH 5.0 (4.5-7.5) Ur Specific Lewellen 1.019 (1.000-1.030) Urine Protein 3+ H (Negative) Urine Glucose (UA) Negative (Negative) Urine Ketones Negative (Negative) Urine Blood 3+ H (Negative) Urine Nitrite Negative (Negative) Urine Bilirubin Negative (Negative) Urine Urobilinogen Negative (Negative) Ur Leukocyte Esterase Trace H (Negative) Urine WBC (Auto) 10-30 H (0-5) /hpf Urine RBC (Auto) >30 H (0-4) /hpf U Hyaline Cast (Auto) 1-5 (0-5) /lpf U Epithel Cells (Auto) >30 H (0-5) /lpf Urine Bacteria (Auto) 4+ H (Negative) COVID-19 PCR (Negative) Diagnostic Findings XR chest 1V portable CLINICAL HISTORY: SEPSIS dyspnea COMPARISON STUDY: 02/02/2020 FINDINGS: Moderate cardiomegaly. Slight prominence of pulmonary vasculature is distended catheter in superior vena cava. IMPRESSION: Mild chronic pulmonary vascular congestion. No focal infiltrate. ACT 112: Negative or not required by law. The above report was generated using voice recognition software. It may contain grammatical, syntax or spelling errors. ECG Additional Comments: ordered Code Status & VTE Plan Code Status Full Code VTE Prophylaxis Plan VTE Prophylaxis will be ordered: Yes PG Care Time/CCT Total # of Minutes Spent Total Time Spent with Patient: Total time spent is greater than 50% in coordination of care (as documented) at patient's floor/unit and/or counseling patient: Coding Level of Care Code 93191 Initial Inpt Care Lvl 3 Diagnoses Sepsis A41.9 Sepsis acute organ dysfunction status: unspecified Sepsis type: sepsis due to unspecified organism Elevated troponin R79.89 Acute UTI N39.0 Elevated serum creatinine R79.89 Hypothyroid E03.9 Hypothyroidism type: unspecified Proteinuria R80.9 Proteinuria type: unspecified Surgical wound, non healing T81.89XA Encounter type: initial encounter Afib I48.91 Atrial fibrillation type: unspecified Asthma J45.909 Asthma severity: unspecified severity Asthma persistence: unspecified Asthma complication type: unspecified CVA (cerebral vascular accident) I63.9 CVA mechanism: unspecified DM type 2 (diabetes mellitus, type 2) E11.9; Z79.4 Diabetes mellitus correction insulin use: with termite inspector use Diabetes mellitus complication status: without complication Hypertension I10 Hypertension type: essential hypertension CHF (congestive heart failure) I50.9 Heart failure type: unspecified Heart failure chronicity: unspecified (1) Sepsis Sepsis acute organ dysfunction status: unspecified Sepsis type: sepsis due to unspecified organism Qualified Code(s): A41.9 - Sepsis, unspecified organism (2) Hypothyroid Hypothyroidism type: unspecified Qualified Code(s): E03.9 - Hypothyroidism, u nspecified (3) Proteinuria Proteinuria type: unspecified Qualified Code(s): R80.9 - Proteinuria, unspecified (4) Surgical wound, non healing Encounter type: initial encounter Qualified Code(s): T81.89XA - Other complications of procedures, not elsewhere classified, initial encounter (5) Afib Atrial fibrillation type: unspecified Qualified Code(s): I48.91 - Unspecified atrial fibrillation (6) Asthma Asthma severity: unspecified severity Asthma persistence: unspecified Asthma complication type: unspecified Qualified Code(s): J45.909 - Unspecified asthma, uncomplicated (7) CVA (cerebral vascular accident) CVA mechanism: unspecified Qualified Code(s): I63.9 - Cerebral infarction, unspecified (8) DM type 2 (diabetes mellitus, type 2) Diabetes mellitus correction insulin use: with termite inspector use Diabetes mellitus complication status: without complication Qualified Code(s): E11.9 - Type 2 diabetes mellitus without complications; Z79.4 - [facility] (current) use of insulin (9) Hypertension Hypertension type: essential hypertension Qualified Code(s): I10 - Essential (primary) hypertension (10) CHF (congestive heart failure) Heart failure type: unspecified Heart failure chronicity: unspecified Qualified Code(s): I50.9 - Heart failure, unspecified
[2020-05-06] MEDS ORDERED: ALBUTEROL HFA 8 GM INHALER INH PRN (07:11)
[2020-05-06] MEDS ORDERED: ONDANSETRON INJ 2 MG/ML 2 ML VIAL IV PRN (07:11)
[2020-05-06] MEDS ORDERED: GLUCOSE 40% GEL 15 GM TUBE PO PRN (07:11)
[2020-05-06] MEDS ORDERED: DEXTROSE 50% 50 ML SYRINGE IV PRN (07:11)
[2020-05-06] MEDS ORDERED: GLUCAGON FOR INJ 1 MG VIAL SQ PRN (07:11)
[2020-05-06] MEDS ORDERED: GLUCOSE 10 TABS/TUBE PO PRN (07:11)
[2020-05-06] MEDS ORDERED: ACETAMINOPHEN 325 MG TAB PO PRN (07:11)
[2020-05-06] MEDS ORDERED: CARBOHYDRATES FOR HYPOGLYCEMIA PO PRN (07:11)
[2020-05-06] MEDS: FERROUS SULFATE 325 MG TAB PO SCH (08:22)
[2020-05-06] MEDS: MENTHOL-ZINC OXIDE 360 APPLN/120 GM TUBE EXT SCH ×3 (08:22→21:44)
[2020-05-06] MEDS: LEVOTHYROXINE SODIUM 125 MCG TABLET PO SCH (08:22)
[2020-05-06] MEDS: DICLOFENAC SOD 1% GEL 100 GM TUBE EXT SCH ×4 (08:22→21:42)
[2020-05-06] MEDS: GABAPENTIN 600 MG TAB PO SCH ×3 (08:22→21:35)
[2020-05-06] MEDS: AMIODARONE 200 MG TAB PO SCH (08:23)
[2020-05-06] MEDS: MONTELUKAST SODIUM 10 MG TABLET PO SCH (08:23)
[2020-05-06] MEDS: INSULIN ASPART 100 UNITS/ML 3 ML PEN SC SCH ×4 (08:24→21:40)
[2020-05-06] MEDS: MUPIROCIN 2% OINT 22 GM TUBE EXT SCH ×2 (08:25→22:21)
[2020-05-06] MEDS: FLUTICASONE/VILANTEROL 200/25MCG 14 PUFFS/INHALER INH SCH (08:25)
[2020-05-06] MEDS: ACETIC ACID 0.25% IRRIG SOLN 1000 ML PLCT IR SCH ×2 (08:25→22:20)
[2020-05-06] MEDS ORDERED: SODIUM CHLORIDE 0.9% 1000ML 250 ML IV ONE (08:57)
[2020-05-06] MEDS ORDERED: INSULIN GLARGINE SOLOSTAR 100 UNITS/ML 3 ML PEN SC SCH ×2 (09:00→21:00)
[2020-05-06] MEDS: METOPROLOL TARTRATE 25 MG TAB PO SCH ×2 (09:06→21:34)
[2020-05-06] MEDS: ALBUT/IPRATROP 3MG/0.5MG NEB 3 ML VIAL INH SCH ×3 (09:10→19:59)
[2020-05-06] MEDS: SODIUM CHLORIDE 0.9% 1000ML 1,000 ML IV SCH ×2 (09:32→21:33)
[2020-05-06] MEDS: PIPERACILLIN/TAZOBACTAM 4.5 GM in DEXTROSE 5% 100 ML IV SCH ×2 (09:32→17:23)
[2020-05-06] MEDS ORDERED: ALBUMIN 5% 250 ML IV SCH (09:45)
[2020-05-06] MEDS ORDERED: INSULIN GLARGINE SOLOSTAR 100 UNITS/ML 3 ML PEN SC STA (12:21)
[2020-05-06] MEDS: WARFARIN SOD 4 MG TAB PO SCH (15:38)
[2020-05-06] MEDS ORDERED: PHARMACY GLYCEMIC MGMT CONSULT PRN (17:07)
[2020-05-06] MEDS ORDERED: INSULIN HUMAN REGULAR PER UNIT 10 UNITS in SYRINGE 9.9 ML IV ONE (17:30)
[2020-05-06] MEDS ORDERED: INSULIN GLARGINE SOLOSTAR 100 UNITS/ML 3 ML PEN SC ONE (17:30)
[2020-05-06] MEDS ORDERED: INSULIN REGULAR 250 UNITS in SODIUM CHLORIDE 0.9% 247.5 ML IV SCH (21:15)
[2020-05-06] MEDS ORDERED: INSULIN HUMAN REGULAR IV BOLUS 10 UNITS in SYRINGE 0 ML IV ONE (21:15)
[2020-05-06] MEDS: FLUTICASONE PROPIONATE NA SPR 16 GM BTL SCH (21:33)
[2020-05-06] MEDS: ATORVASTATIN 40 MG TAB PO SCH (21:34)
[2020-05-07] MEDS ORDERED: INSULIN ASPART 100 UNITS/ML 3 ML PEN SC SCH
[2020-05-07] MEDS: PIPERACILLIN/TAZOBACTAM 4.5 GM in DEXTROSE 5% 100 ML IV SCH ×3 (04:10→18:50)
[2020-05-07 05:26] LABS: Basophils # (auto) 0.01 K/uL (0-0.2); Basophils % (auto) 0.1 %; Hematocrit (blood only) 25.5 % (37-47); Hemoglobin 7.8 g/dL (12.0-16.0); Immature Granulocytes # (auto) 0.09 K/uL (0.00-0.02); Immature Granulocytes % (auto) 0.6 %; Lymphocytes # (auto) 0.66 K/uL (1.2-3.4); Lymphocytes % (auto) 4.5 %; Mean Corpuscular Hemoglobin 26.4 pg (25-34); Mean Corpuscular Hgb Conc 30.6 g/dL (32-36); Mean Corpuscular Volume 86.1 fL (80-100); Mean Platelet Volume 9.5 fL (7.4-10.4); Monocytes # (auto) 0.74 K/uL (0.11-0.59); Monocytes % (auto) 5.1 %; Neutrophils # (auto) 13.15 K/uL (1.4-6.5); Neutrophils % (auto) 89.7 %; Platelet Count 269 K/uL (130-400); RDW Coefficient of Variation 17.9 % (11.5-14.5); RDW Standard Deviation 56.1 fL (36.4-46.3); Red Blood Count 2.96 M/uL (4.2-5.4); White Blood Count 14.65 K/uL (4.8-10.8)
[2020-05-07 05:36] LABS: INR 3.4 (0.9-1.1); Prothrombin Time 33.9 Seconds (9.0-12.0)
[2020-05-07 05:45] LABS: RBC Morphology Unremarkable
[2020-05-07] MEDS: LEVOTHYROXINE SODIUM 125 MCG TABLET PO SCH (05:47)
[2020-05-07 06:01] LABS: BUN Creatinine Ratio 25.2 (10-20); Calcium 8.1 mg/dl (8.5-10.1); Creatinine Clr Calc Pharmacy 35.8 ml/min; Est GFR (African American) 25.1; Est GFR (Non-African American) 21.7; Potassium 4.2 mmol/L (3.5-5.1)
[2020-05-07] MEDS: ALBUT/IPRATROP 3MG/0.5MG NEB 3 ML VIAL INH SCH ×3 (07:05→19:23)
[2020-05-07 07:30] LABS: Estimated Average Glucose 169 mg/dl; Hemoglobin A1C 7.5 % (4.5-5.6)
[2020-05-07] MEDS: FLUTICASONE/VILANTEROL 200/25MCG 14 PUFFS/INHALER INH SCH (08:01)
[2020-05-07] MEDS: MONTELUKAST SODIUM 10 MG TABLET PO SCH (08:03)
[2020-05-07] MEDS: FERROUS SULFATE 325 MG TAB PO SCH (08:03)
[2020-05-07] MEDS: GABAPENTIN 600 MG TAB PO SCH ×3 (08:03→20:43)
[2020-05-07] MEDS: METOPROLOL TARTRATE 25 MG TAB PO SCH ×2 (08:03→20:40)
[2020-05-07] MEDS: AMIODARONE 200 MG TAB PO SCH (08:03)
[2020-05-07] MEDS: INSULIN ASPART 100 UNITS/ML 3 ML PEN SC SCH ×4 (08:13→21:08)
[2020-05-07] MEDS: DICLOFENAC SOD 1% GEL 100 GM TUBE EXT SCH ×4 (08:19→20:39)
[2020-05-07] MEDS: MUPIROCIN 2% OINT 22 GM TUBE EXT SCH ×2 (08:20→20:41)
[2020-05-07] MEDS: MENTHOL-ZINC OXIDE 360 APPLN/120 GM TUBE EXT SCH ×3 (08:20→20:39)
[2020-05-07] MEDS: ACETIC ACID 0.25% IRRIG SOLN 1000 ML PLCT IR SCH ×2 (08:21→20:41)
[2020-05-07] MEDS: INSULIN GLARGINE SOLOSTAR 100 UNITS/ML 3 ML PEN SC SCH (08:51)
--- NOTE | 2020-05-07 13:56 | Pharmacy Report ---
Glycemic Control Consultation - Date of Service May 07, 2020 - Scope Scope: Glycemic Pharmacist consulted for glycemic control and to write orders per formerly [facility] inpatient glycemic control protocol. - Objective Weight: 160 kg Accgracielaeckkajal BSG (last 24hrs): 05/06/20 05/06/20 05/06/20 16:20 16:24 20:44 Glucose POC Glucose 392 H* 362 H* 352 H* 05/06/20 05/06/20 05/07/20 22:29 23:29 00:30 Glucose POC Glucose 288 H 261 H 240 H 05/07/20 05/07/20 05/07/20 01:34 03:44 05:16 Glucose 154 H POC Glucose 215 H 189 H 05/07/20 05/07/20 05/07/20 05:28 07:38 08:30 Glucose POC Glucose 163 H 190 H 179 H 05/07/20 05/07/20 05/07/20 09:29 10:26 11:31 Glucose POC Glucose 185 H 156 H 128 H 05/07/20 12:38 Glucose POC Glucose 115 H Laboratory Data (last 24hrs): 05/07/20 05:16 Potassium 4.2 Carbon Dioxide 27 Anion Gap 5.0 Creatinine 2.29 H D Est Cr Clr Drug Dosing 35.8 HbA1c: Hemoglobin A1c 7.5 % (4.5-5.6) H 05/07/20 05:16 - Recent Pertinent Medications Outpatient Anti-diabetic Regimen: * humalog SSI, metformin, sitagliptan * A1c = 7.5 % 05/07/20 Risk Factors for Insulin Resistance: * Steroids: IV dex 05/06 * Infection: wound infection/zosyn * Diet: t2dm - Assessment & Plan Assessment & Plan: ASSESSMENT: * Patient admitted with possible sepsis/UTI on admission. Also with steroid induced hyperglycemia. Pharmacy consulted to help with glycemic management. * Started on insulin gtt last evening - insulin rate slowly decreasing. Drip rate this AM running at ~5 units/hr however likely related to steroids received on 05/06. Anticipate drip rate to decrease this afternoon * Based upon previous admission 01/2020, patient requiring about 15 units of basal insulin - did stress this dose d/t steroids for basal dose this AM to 30 units of basal. Plan to overlap with drip and hopefully d/c later today PLAN FOR INPATIENT GLYCEMIC CONTROL: * Continue insulin gtt for now - overlap with basal insulin * Basal insulin * Lantus 30 units x 1 this AM (overlap with insulin gtt) - equivalent to full stress of 2 dosing * Bolus insulin - once drip dc'ed could consider * NovoLog per scale ACHS or Q6hrs while NPO * Goal Range: Low 110 mg/dL - High 140 mg/dL * Correction Factor: 15 mg/dL/unit * Nutritional / Prandial insulin per carb ratio of 1 unit per 5 grams CHO consumed * Please note that the plan above was derived based on current level of insulin resistance and hospital stress. These recommendations are appropriate for inpatient admission only. Plan of care upon discharge will need to be reassessed to avoid potential outpatient hypo/hyperglycemia. Thank you.
--- NOTE | 2020-05-07 15:01 | Hospitalist Progress Note ---
Date of Service May 07, 2020 Assessment & Plan (1) Sepsis: severe sepsis with DIANNE as end organ failure and initially with hypotension responded well to fluid and albumin yesterday, never required vasopressors, no shock source is UTI, urine is growing out E coli has right hip wound that is chronic for 15 years, no signs of acute infection/cellulitis will stop Datpomycin, continue Zosyn and taper when sensitivities return no growth on blood cultures (2) DIANNE (acute kidney injury): Cr elevated on admission, she admitted to being dehydrated, diarrhea for 9 days prior to admission poor oral intake Cr trending up slightly to 2.29 today, will place sanches to accurately measure UO electrolytes stable eating and drinking well no further IV fluids as she had adequate fluids yesterday and Cr went up suggesting this is less likely azotemia ATN would make sense with sepsis and hypotension repeat BMP in the morning (3) Acute UTI: Patient states that her symptoms are similar to prior UTIs in the past. UA with blood/protein/WBC and 4+ bacteria -continue zosyn, urine culture growing E coli, follow up final sensitivities (4) Elevated troponin: Patient with mildly elevated troponin of 0.066. She has had elevated troponin in the past. Also with elevated BNP. She denies chest pain/palpitations. -EKG without ischemic changes - repeat troponin 0.02 this represents demand ischemia due to hypotension, sepsis, does not represent ACS (5) DM type 2 (diabetes mellitus, type 2): Blood sugar mildly elevated at 177 on admission however, patient received Dexamethasone required insulin infusion yesterday afternoon after sugars failed to respond to Lantus 20 units and Novolog correction sugars better today on drip glycemic consult placed on 05/07 plan to transition back to basal bolus regimen -Hold Metformin and Sitaglliptin during hospital stay (6) Afib: Rhythm regular on exam, EKG pending. Rate controlled -hold Coumadin as INR 3.4 today -Hold Metoprolol in setting of hypotension, sepsis -Monitor INR daily (7) Hypothyroid: Chronic. Stable. TSH=2.46 -Continue Synthroid 125mcg po daily (8) Proteinuria: Patient with 3+ protein in urine, low albumin. +Diabetes -Consider initiating low dose Celestino-inhibitor for renal protection after acute issues resolve (9) Surgical wound, non healing: Right hip with chronic, non-healing wound. No purulent drainage at present. Some mild erythema -Continue with acetic acid washes and dressing changes daily and as needed -Monitor for evidence of infection, no signs today she says she has had the wound for 15 years resides at [facility] (10) Asthma: Diminished breath sounds. No wheezing appreciated -Continue Duonebs -Albuterol PRN -Continue SIngulair (11) CVA (cerebral vascular accident): Remote history -Continue ASA -Holding statin (12) Hypertension: Blood pressure low in the ER -Holding Metoprolol, Lasix for now -IVF as above, pressor support if needed to maintain MAP >65 -Consider initiating CELESTINO-inhibitor if tolerated after acute issues resolve (13) CHF (congestive heart failure): Documented history of CHF. Patient had an echocardiogram performed on 01/13/20which showed normal LV function with EF of 60-65%, no regional WMA, elevated right atrial pressure and IVC. CXR suggestive of pulmonary edema, mildly elevated troponin and BNP -Holding metoprolol as above -Holding Lasix as above Ppx - On Coumadin for AF Code - Full Dispo - Admit to PCU for sepsis Admission and Anticipated Discharge Date Admission Date: May 06, 2020 Subjective patient says she is feeling a lot better today, completely different than yesterday she is eating well placed sanches this morning as Cr up to 2.29, want to have accurate UO measurement other labs reviewed, WBC up to 14k, Hb down to 7.8, plts 269 INR 3.4 electrolytes are stable she denies fever/chills, diaphoresis, chest pain, cough, dyspnea, nausea discussed with pharmacy, will stop Daptomycin urine culture growing out E coli, do not suspect that the hip is cause of infection sugars are much better after insulin drip started unfortunately patient got Dexamethasone in the ED yesterday morning causing hyperglycemia for 24 hours Review of Systems Review of Systems: All systems reviewed & are unremarkable except as noted in HPI & below Physical Exam Constitutional: well developed and + morbidly obese; no acute distress Eyes: PERRL, conjunctivae normal, anicteric sclerae ENMT: external ear and nose normal, oropharynx normal Neck: trachea midline, no thyromegaly Respiratory: normal respiratory effort, lungs clear to auscultation Cardiovascular: RRR, no murmur, no edema Gastrointestinal (Abdomen): normal bowel sounds, soft, nontender, no hepatosplenomegaly Musculoskeletal: Head/Neck/Chest: normocephalic and head atraumatic Extremities: extremities normal to inspection; no cyanosis, no clubbing and no petechiae Skin: normal turgor and + wound (chronic wound right hip, small opening, erythematous); no rashes and no jaundice Neurologic: patellar DTR's 2+ bilat, sensation intact and PERRL, EOMI, accommodation nl, no face palsy, no dysarthria Psychiatric: A+Ox3, euthymic affect Lymphatic: no cervical or axillary lymphadenopathy Results & Data Results & Data ([facility]) Vital Signs (Past 12 Hours) Vital Signs Temp Pulse Pulse Pulse Resp BP Pulse Ox 05/07/20 14:41 36.6 C 64 18 94/51 L 97 05/07/20 13:04 60 16 99 05/07/20 11:36 36.4 C L 58 L 19 110/62 99 05/07/20 08:00 36.5 C 63 19 128/72 98 05/07/20 07:44 60 05/07/20 07:11 61 20 100 05/07/20 07:08 61 20 100 05/07/20 03:45 36.5 C 59 L 19 118/72 99 05/07/20 03:10 57 L 13 98 Laboratory Results Laboratory Results - last 24 hr 05/06/20 05/06/20 05/06/20 16:20 16:24 20:08 WBC RBC Hgb Hct MCV MCH MCHC RDW Std Deviation RDW Coeff of Mehnaz Plt Count MPV Immature Gran % (Auto) Neut % (Auto) Lymph % (Auto) [place] % (Auto) Eos % (Auto) Baso % (Auto) Neut # (Auto) Lymph # (Auto) [place] # (Auto) Eos # (Auto) Baso # (Auto) Immature Gran # (Auto) RBC Morphology PT INR Sodium Potassium Chloride Carbon Dioxide Anion Gap BUN Creatinine Est Cr Clr Drug Dosing Est GFR ( Amer) Est GFR (Non-Af Amer) BUN/Creatinine Ratio Glucose POC Glucose 392 H* 362 H* Estimat Average Glucose Hemoglobin A1c Calcium Troponin I 0.024 05/06/20 05/06/20 05/06/20 20:44 22:29 23:29 WBC RBC Hgb Hct MCV MCH MCHC RDW Std Deviation RDW Coeff of Mehnaz Plt Count MPV Immature Gran % (Auto) Neut % (Auto) Lymph % (Auto) [place] % (Auto) Eos % (Auto) Baso % (Auto) Neut # (Auto) Lymph # (Auto) [place] # (Auto) Eos # (Auto) Baso # (Auto) Immature Gran # (Auto) RBC Morphology PT INR Sodium Potassium Chloride Carbon Dioxide Anion Gap BUN Creatinine Est Cr Clr Drug Dosing Est GFR ( Amer) Est GFR (Non-Af Amer) BUN/Creatinine Ratio Glucose POC Glucose 352 H* 288 H 261 H Estimat Average Glucose Hemoglobin A1c Calcium Troponin I 05/07/20 05/07/20 05/07/20 00:30 01:34 03:44 WBC RBC Hgb Hct MCV MCH MCHC RDW Std Deviation RDW Coeff of Mehnaz Plt Count MPV Immature Gran % (Auto) Neut % (Auto) Lymph % (Auto) [place] % (Auto) Eos % (Auto) Baso % (Auto) Neut # (Auto) Lymph # (Auto) [place] # (Auto) Eos # (Auto) Baso # (Auto) Immature Gran # (Auto) RBC Morphology PT INR Sodium Potassium Chloride Carbon Dioxide Anion Gap BUN Creatinine Est Cr Clr Drug Dosing Est GFR ( Amer) Est GFR (Non-Af Amer) BUN/Creatinine Ratio Glucose POC Glucose 240 H 215 H 189 H Estimat Average Glucose Hemoglobin A1c Calcium Troponin I 05/07/20 05/07/20 05/07/20 05:16 05:16 05:16 WBC 14.65 H RBC 2.96 L Hgb 7.8 L Hct 25.5 L MCV 86.1 MCH 26.4 MCHC 30.6 L RDW Std Deviation 56.1 H RDW Coeff of Mehnaz 17.9 H Plt Count 269 MPV 9.5 Immature Gran % (Auto) 0.6 Neut % (Auto) 89.7 Lymph % (Auto) 4.5 [place] % (Auto) 5.1 Eos % (Auto) 0.0 Baso % (Auto) 0.1 Neut # (Auto) 13.15 H Lymph # (Auto) 0.66 L [place] # (Auto) 0.74 H Eos # (Auto) 0.00 Baso # (Auto) 0.01 Immature Gran # (Auto) 0.09 H RBC Morphology Unremarkable PT 33.9 H INR 3.4 H Sodium Potassium Chloride Carbon Dioxide Anion Gap BUN Creatinine Est Cr Clr Drug Dosing Est GFR ( Amer) Est GFR (Non-Af Amer) BUN/Creatinine Ratio Glucose POC Glucose Estimat Average Glucose 169 Hemoglobin A1c 7.5 H Calcium Troponin I 05/07/20 05/07/20 05/07/20 05:16 05:28 07:38 WBC RBC Hgb Hct MCV MCH MCHC RDW Std Deviation RDW Coeff of Mehnaz Plt Count MPV Immature Gran % (Auto) Neut % (Auto) Lymph % (Auto) [place] % (Auto) Eos % (Auto) Baso % (Auto) Neut # (Auto) Lymph # (Auto) [place] # (Auto) Eos # (Auto) Baso # (Auto) Immature Gran # (Auto) RBC Morphology PT INR Sodium 139 Potassium 4.2 Chloride 107 Carbon Dioxide 27 Anion Gap 5.0 BUN 58 H Creatinine 2.29 H D Est Cr Clr Drug Dosing 35.8 Est GFR ( Amer) 25.1 Est GFR (Non-Af Amer) 21.7 BUN/Creatinine Ratio 25.2 H Glucose 154 H POC Glucose 163 H 190 H Estimat Average Glucose Hemoglobin A1c Calcium 8.1 L Troponin I 05/07/20 05/07/20 05/07/20 08:30 09:29 10:26 WBC RBC Hgb Hct MCV MCH MCHC RDW Std Deviation RDW Coeff of Mehnaz Plt Count MPV Immature Gran % (Auto) Neut % (Auto) Lymph % (Auto) [place] % (Auto) Eos % (Auto) Baso % (Auto) Neut # (Auto) Lymph # (Auto) [place] # (Auto) Eos # (Auto) Baso # (Auto) Immature Gran # (Auto) RBC Morphology PT INR Sodium Potassium Chloride Carbon Dioxide Anion Gap BUN Creatinine Est Cr Clr Drug Dosing Est GFR ( Amer) Est GFR (Non-Af Amer) BUN/Creatinine Ratio Glucose POC Glucose 179 H 185 H 156 H Estimat Average Glucose Hemoglobin A1c Calcium Troponin I 05/07/20 05/07/20 05/07/20 11:31 12:38 13:40 WBC RBC Hgb Hct MCV MCH MCHC RDW Std Deviation RDW Coeff of Mehnaz Plt Count MPV Immature Gran % (Auto) Neut % (Auto) Lymph % (Auto) [place] % (Auto) Eos % (Auto) Baso % (Auto) Neut # (Auto) Lymph # (Auto) [place] # (Auto) Eos # (Auto) Baso # (Auto) Immature Gran # (Auto) RBC Morphology PT INR Sodium Potassium Chloride Carbon Dioxide Anion Gap BUN Creatinine Est Cr Clr Drug Dosing Est GFR ( Amer) Est GFR (Non-Af Amer) BUN/Creatinine Ratio Glucose POC Glucose 128 H 115 H 150 H Estimat Average Glucose Hemoglobin A1c Calcium Troponin I 05/07/20 14:37 WBC RBC Hgb Hct MCV MCH MCHC RDW Std Deviation RDW Coeff of Mehnaz Plt Count MPV Immature Gran % (Auto) Neut % (Auto) Lymph % (Auto) [place] % (Auto) Eos % (Auto) Baso % (Auto) Neut # (Auto) Lymph # (Auto) [place] # (Auto) Eos # (Auto) Baso # (Auto) Immature Gran # (Auto) RBC Morphology PT INR Sodium Potassium Chloride Carbon Dioxide Anion Gap BUN Creatinine Est Cr Clr Drug Dosing Est GFR ( Amer) Est GFR (Non-Af Amer) BUN/Creatinine Ratio Glucose POC Glucose 157 H Estimat Average Glucose Hemoglobin A1c Calcium Troponin I Microbiology 05/06/20 04:25 Urine,Indwelling Cath Urine Culture - Preliminary Escherichia coli 05/06/20 03:53 Blood Aerobic Blood Culture - Preliminary No growth in Aerobic bottle after 24 hours. 05/06/20 03:53 Blood Anaerobic Blood Culture - Preliminary No growth in Anaerobic bottle after 24 hours. 05/06/20 03:53 Blood Aerobic Blood Culture - Preliminary No growth in Aerobic bottle after 24 hours. 05/06/20 03:53 Blood Anaerobic Blood Culture - Preliminary No growth in Anaerobic bottle after 24 hours. Medications Administered Current Inpatient Medications Acetaminophen (Tylenol) 650 mg PO Q4H PRN PRN Reason: Pain or Fever Stop: 06/05/20 07:10 Acetic Acid (Acetic Acid 0.25%) 1 appln IR BID [facility]ANDR[facility] Stop: 06/05/20 08:59 Last Admin: 05/07/20 08:21 Dose: 1 appln Documented by: Albuterol (Duoneb) 3 ml INH TIDR CASSANDRA Stop: 06/05/20 08:59 Last Admin: 05/07/20 13:03 Dose: 3 ml Documented by: Albuterol (Ventolin Hfa) 2 puffs INH Q4 PRN PRN Reason: Shortness Of Breath Or Wheezing Stop: 06/05/20 07:10 Amiodarone HCl (Cordarone) 200 mg PO QAM [facility] Stop: 06/05/20 08:59 Last Admin: 05/07/20 08:03 Dose: 200 mg Documented by: Atorvastatin Calcium (Lipitor) 40 mg PO HS [facility] Stop: 06/05/20 20:59 Last Admin: 05/06/20 21:34 Dose: 40 mg Documented by: Calamine/Phenol (Calmoseptine) 1 appln EXT TID [facility] Stop: 06/05/20 08:59 Last Admin: 05/07/20 08:20 Dose: 1 appln Documented by: Dextrose (Dextrose 50%) 25 - 50 ml IV UD PRN; Protocol PRN Reason: Hypoglycemia Protocol Stop: 06/05/20 07:10 Diclofenac Sodium (Voltaren 1% Top) 4 gm EXT QID [facility] Stop: 06/05/20 08:59 Last Admin: 05/07/20 08:19 Dose: 4 gm Documented by: Ferrous Sulfate (Feosol) 325 mg PO QAM [facility] Stop: 06/05/20 08:59 Last Admin: 05/07/20 08:03 Dose: 325 mg Documented by: Fluticasone Propionate (Flonase) 2 sprays NA HS [facility] Stop: 06/05/20 20:59 Last Admin: 05/06/20 21:33 Dose: 2 sprays Documented by: Fluticasone/Vilanterol (Breo Ellipta 200/25 Mcg Inh) 1 puffs INH DAILY [facility]; Protocol Stop: 06/05/20 08:59 Last Admin: 05/07/20 08:01 Dose: 1 puffs Documented by: Gabapentin (Neurontin) 600 mg PO TID [facility] Stop: 06/05/20 08:59 Last Admin: 05/07/20 08:03 Dose: 600 mg Documented by: Glucagon (Glucagen) 1 mg SQ UD PRN; Protocol PRN Reason: Hypoglycemia Protocol Stop: 06/05/20 07:10 Glucose (Dex4 Glucose) 4 - 8 tabs PO UD PRN; Protocol PRN Reason: Hypoglycemia Protocol Stop: 06/05/20 07:10 Glucose (Glucose 40%) 15 - 30 gm PO UD PRN; Protocol PRN Reason: Hypoglycemia Protocol Stop: 06/05/20 07:10 Piperacillin Sod/Tazobactam (Sod 4.5 gm/ Dextrose) 120 mls @ 30 mls/hr IV Q8H [facility]; Protocol Stop: 05/11/20 09:59 Last Admin: 05/07/20 11:19 Dose: 30 mls/hr Documented by: Insulin Human Regular 250 (units/ Sodium Chloride) 250 mls @ 5.5 mls/hr IV .Q24H [facility]; Protocol Stop: 06/05/20 21:14 Last Titration: 05/07/20 11:38 Dose: 5.5 units/hr, 5.5 mls/hr Documented by: Insulin Aspart (Novolog Flexpen) 0 units SC ACHS [facility] Stop: 06/05/20 20:59 Last Admin: 05/07/20 13:14 Dose: 12 units Documented by: Insulin Glargine (Lantus Solostar Pen) [facility] [place] Protocol Stop: 06/06/20 08:59 Last Admin: 05/07/20 08:51 Dose: 30 units Documented by: Levothyroxine Sodium (Synthroid) 125 mcg PO DAILYBB [facility] Stop: 06/05/20 07:10 Last Admin: 05/07/20 05:47 Dose: 125 mcg Documented by: Metoprolol Tartrate (Lopressor) 12.5 mg PO Q12 [facility] Stop: 06/05/20 07:29 Last Admin: 05/07/20 08:03 Dose: 12.5 mg Documented by: Miscellaneous (Carbohydrates For Hypoglycemia) 15 - 30 gm PO UD PRN PRN Reason: Hypoglycemia Protocol Stop: 06/05/20 07:10 Miscellaneous (Pending Order) 1 ea N/A Q2H [facility] Stop: 06/06/20 15:59 Miscellaneous Information (Consult) 1 ea N/A UD PRN PRN Reason: Consult Stop: 06/05/20 07:10 Miscellaneous Information (Consult Glycemic Management Pharmacy) 1 ea N/A UD PRN PRN Reason: Consult Stop: 06/05/20 17:06 Montelukast Sodium (Singulair) 10 mg PO QAM [facility] Stop: 06/05/20 08:59 Last Admin: 05/07/20 08:03 Dose: 10 mg Documented by: Mupirocin (Bactroban 2%) 1 appln EXT BID [facility] Stop: 06/05/20 08:59 Last Admin: 05/07/20 08:20 Dose: 1 appln Documented by: Ondansetron HCl (Zofran) 4 mg IV Q6H PRN PRN Reason: Nausea Stop: 06/05/20 07:10 Warfarin Sodium (Coumadin) 4 mg PO DAILY@1600 [facility] Stop: 06/05/20 15:59 Last Admin: 05/06/20 15:38 Dose: 4 mg Documented by: PG Care Time/CCT Total # of Minutes Spent Total Time Spent with Patient: Total time spent is greater than 50% in coordination of care (as documented) at patient's floor/unit and/or counseling patient: Coding Level of Care Code 26512 Subseq Hosp Care Lvl 3 Diagnoses Sepsis A41.9 Sepsis acute organ dysfunction status: unspecified Sepsis type: sepsis due to unspecified organism DIANNE (acute kidney injury) N17.9 Acute UTI N39.0 Elevated troponin R79.89 DM type 2 (diabetes mellitus, type 2) E11.9; Z79.4 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 use Diabetes mellitus complication status: without complication Afib I48.91 Atrial fibrillation type: unspecified Hypothyroid E03.9 Hypothyroidism type: unspecified Proteinuria R80.9 Proteinuria type: unspecified Surgical wound, non healing T81.89XA Encounter type: initial encounter Asthma J45.909 Asthma severity: unspecified severity Asthma persistence: unspecified Asthma complication type: unspecified CVA (cerebral vascular accident) I63.9 CVA mechanism: unspecified Hypertension I10 Hypertension type: essential hypertension CHF (congestive heart failure) I50.9 Heart failure type: unspecified Heart failure chronicity: unspecified (1) Sepsis Sepsis acute organ dysfunction status: unspecified Sepsis type: sepsis due to unspecified organism Qualified Code(s): A41.9 - Sepsis, unspecified organism (2) Hypothyroid Hypothyroidism type: unspecified Qualified Code(s): E03.9 - Hypothyroidism, unspecified (3) Proteinuria Proteinuria type: unspecified Qualified Code(s): R80.9 - Proteinuria, unspecified (4) Surgical wound, non healing Encounter type: initial encounter Qualified Code(s): T81.89XA - Other complications of procedures, not elsewhere classified, initial encounter (5) Afib Atrial fibrillation type: unspecified Qualified Code(s): I48.91 - Unspecified atrial fibrillation (6) Asthma Asthma severity: unspecified severity Asthma persistence: unspecified Asthma complication type: unspecified Qualified Code(s): J45.909 - Unspecified asthma, uncomplicated (7) CVA (cerebral vascular accident) CVA mechanism: unspecified Qualified Code(s): I63.9 - Cerebral infarction, unspecified (8) DM type 2 (diabetes mellitus, type 2) 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
[2020-05-07] MEDS ORDERED: NovoLIN-N (NPH) PER UNIT CHARGE SQ ONE (16:45)
[2020-05-07] MEDS: FLUTICASONE PROPIONATE NA SPR 16 GM BTL SCH (20:40)
[2020-05-07] MEDS: ATORVASTATIN 40 MG TAB PO SCH (20:43)
[2020-05-08] MEDS: INSULIN ASPART 100 UNITS/ML 3 ML PEN SC SCH ×6 (00:04→20:53)
[2020-05-08] MEDS: PIPERACILLIN/TAZOBACTAM 4.5 GM in DEXTROSE 5% 100 ML IV SCH ×2 (01:01→10:17)
[2020-05-08] MEDS: LEVOTHYROXINE SODIUM 125 MCG TABLET PO SCH (05:58)
[2020-05-08] MEDS: ALBUT/IPRATROP 3MG/0.5MG NEB 3 ML VIAL INH SCH ×3 (06:51→19:47)
[2020-05-08 07:49] LABS: INR 3.1 (0.9-1.1); Prothrombin Time 30.8 Seconds (9.0-12.0)
[2020-05-08 08:57] LABS: Hemoglobin 7.7 g/dL (12.0-16.0); Mean Corpuscular Hgb Conc 30.8 g/dL (32-36); Mean Corpuscular Volume 84.5 fL (80-100); Platelet Count 301 K/uL (130-400); RDW Coefficient of Variation 17.8 % (11.5-14.5); RDW Standard Deviation 55.1 fL (36.4-46.3); Red Blood Count 2.96 M/uL (4.2-5.4); White Blood Count 10.85 K/uL (4.8-10.8)
[2020-05-08 08:59] LABS: BUN Creatinine Ratio 24.9 (10-20); Calcium 8.5 mg/dl (8.5-10.1); Creatinine Clr Calc Pharmacy 33.1 ml/min; Est GFR (African American) 22.2; Est GFR (Non-African American) 19.1; Potassium 4.3 mmol/L (3.5-5.1)
[2020-05-08] MEDS: DICLOFENAC SOD 1% GEL 100 GM TUBE EXT SCH ×4 (09:20→20:57)
[2020-05-08] MEDS: MENTHOL-ZINC OXIDE 360 APPLN/120 GM TUBE EXT SCH ×3 (09:20→21:05)
[2020-05-08] MEDS: INSULIN GLARGINE SOLOSTAR 100 UNITS/ML 3 ML PEN SC SCH ×2 (10:11→20:51)
[2020-05-08] MEDS: FERROUS SULFATE 325 MG TAB PO SCH (10:16)
[2020-05-08] MEDS: GABAPENTIN 600 MG TAB PO SCH ×3 (10:16→20:49)
[2020-05-08] MEDS: AMIODARONE 200 MG TAB PO SCH (10:16)
[2020-05-08] MEDS: METOPROLOL TARTRATE 25 MG TAB PO SCH ×2 (10:17→20:50)
[2020-05-08] MEDS: FLUTICASONE/VILANTEROL 200/25MCG 14 PUFFS/INHALER INH SCH (10:17)
[2020-05-08] MEDS: MONTELUKAST SODIUM 10 MG TABLET PO SCH (10:17)
[2020-05-08] MEDS: ACETIC ACID 0.25% IRRIG SOLN 1000 ML PLCT IR SCH ×2 (10:18→21:06)
[2020-05-08] MEDS: MUPIROCIN 2% OINT 22 GM TUBE EXT SCH ×2 (10:18→21:06)
--- NOTE | 2020-05-08 15:05 | Pharmacy Report ---
Pharmacy Glycemic Short Note 2 - Date of Service May 08, 2020 - Glycemic Short BSG Results (Last 24 hours): 05/07/20 05/07/20 05/07/20 15:31 16:28 18:42 Glucose POC Glucose 148 H 138 H 106 H 05/07/20 05/07/20 05/07/20 19:35 19:55 20:49 Glucose POC Glucose 77 79 81 05/08/20 05/08/20 05/08/20 00:00 04:19 07:26 Glucose POC Glucose 108 H 121 H 144 H 05/08/20 05/08/20 07:26 11:17 Glucose 125 H POC Glucose 214 H ASSESSMENT: * Patient admitted with possible sepsis/UTI on admission. Also with steroid induced hyperglycemia. Pharmacy consulted to help with glycemic management. * Started on insulin gtt last evening - insulin rate slowly decreasing. Drip rate this AM running at ~5 units/hr however likely related to steroids received on 05/06. Anticipate drip rate to decrease this afternoon * Based upon previous admission 01/2020, patient requiring about 15 units of basal insulin - did stress this dose d/t steroids for basal dose this AM to 30 units of basal. Plan to overlap with drip and hopefully d/c later today 05/08: * Patient received 91 units of insulin yesterday in addition to insulin drip * Fasting BSG this AM w/bassem range at 144 mg/dL - steroids likely wearing off / anticipate insulin needs to decrease * Continue with scale for basal insulin / loosened CR slightly this AM * Patient ate late lunch, BSG only an hour after eating and giving insulin therefore falsely elevated / had nurse just cover carbs only PLAN FOR INPATIENT GLYCEMIC CONTROL: * Basal insulin * Lantus 15-25 units bid based upon BSG * Bolus insulin - * NovoLog per scale ACHS or Q6hrs while NPO * Goal Range: Low 110 mg/dL - High 140 mg/dL * Correction Factor: 15 mg/dL/unit * Nutritional / Prandial insulin per carb ratio of 1 unit per 6 grams CHO consumed * Please note that the plan above was derived based on current level of insulin resistance and hospital stress. These recommendations are appropriate for inpatient admission only. Plan of care upon discharge will need to be reassessed to avoid potential outpatient hypo/hyperglycemia. Thank you.
--- NOTE | 2020-05-08 18:06 | CT Scan Report ---
ABDOMEN AND PELVIS CT WITHOUT CONTRAST CT DOSE: 2217.82 mGy.cm HISTORY: UTI, acute renal failure; eval obstructing stone TECHNIQUE: Multiaxial CT images of the abdomen and pelvis were performed without contrast. A dose lo wering technique was utilized adhering to the principles of ALARA. COMPARISON STUDY: None. FINDINGS: Patchy densities within the bilateral lower lobes posteriorly most pronounced on the left. This favors atelectasis. A pneumonia could also have a similar appearance. There are bilateral total hip arthroplasties. No suspicious lytic are blastic osseous lesions. Old, healed left-sided rib fract ures. The left anterior abdominal wall is not visualized due to artifact from the gantry. There is al so nondiagnostic evaluation of the bilateral distal ureters due to the metallic artifact from the tot al hip arthroplasties. Advanced degenerative disc disease throughout the majority of the lower thorac ic and lumbar spine. Moderately distended gas and fluid-filled stomach. Normal caliber duodenum. A fe w punctate stones at the gallbladder neck. No definite bladder wall thickening. The unenhanced liver, adrenal glands, and pancreas are unremarkable. Mild bilateral perinephric edema. This is likely lining baster danielle. No definite renal or ureteral stones. No hydronephrosis. Punctate calcifications within the carlos l sinuses are likely vascular. No retroperitoneal lymphadenopathy. Mild calcified plaque within the n ormal caliber abdominal aorta. Subcutaneous edema/contusion within the right lateral hip. This is onl y partially imaged on this study. There is a large umbilical hernia containing fat and a short segmen t of the transverse colon. Suboptimal evaluation for bowel pathology due to the lack of intravenous a nd oral contrast. However, there is no definite bowel wall thickening or obstruction. Colonic diverti culosis. No evidence for acute diverticulitis. The visualized appendix is unremarkable. The bladder i s not well visualized due to metallic artifact but appears to be decompressed by a Heard catheter. Pa rtially calcified left ovary which likely contains a hypodense lesion. There is also a 7.4 cm hypoden se lesion within the right adnexa which is also likely ovarian. The left ovary is also slightly enlar ged for age and measures 5.4 cm. Fatty atrophy of the right hip musculature which is likely chronic. IMPRESSION: 1. No definite renal or ureteral stones. Of note, the distal ureter and bladder are obscured by the m etallic artifact from the bilateral total hip arthroplasties. 2. No definite bowel wall thickening or obstruction. 3. Moderately distended gas and fluid-filled stomach. 4. Cholelithiasis. 5. Right hip subcutaneous edema/contusion. 6. Large umbilical hernia containing fat and a short segment of the transverse colon. 7. Abnormal appearing ovaries for age. This includes a 7.4 cm hypodense lesion within the right ovary . This could represent an ovarian malignancy. Follow-up pelvic ultrasound is recommended for further evaluation. 8. Additional findings as described above. ACT 112: Negative or not required by law. Electronically signed by: Freddy Aden M.D. 05/08/2020 6:05 PM
[2020-05-08] MEDS: LACTOBACILLUS ACIDOPHILUS (FLORANEX) TAB PO SCH (18:25)
[2020-05-08] MEDS: ERTAPENEM SODIUM 1,000 MG in SODIUM CHLORIDE 0.9% 50 ML IV SCH (19:53)
[2020-05-08] MEDS: ATORVASTATIN 40 MG TAB PO SCH (20:49)
[2020-05-08] MEDS: FLUTICASONE PROPIONATE NA SPR 16 GM BTL SCH (20:51)
--- NOTE | 2020-05-08 21:17 | Hospitalist Progress Note ---
Date of Service May 08, 2020 Assessment & Plan (1) Sepsis: 2nd to multi-drug resistant e.coli UTI. blood cultures negative. sepsis was SEVERE - DIANNE, hypotension requiring significant fluid resuscitation but no pressors. stop zosyn. transition to once-daily IV ertapenem. plan 7-10 days of Rx. (2) DIANNE (acute kidney injury): sepsis-associated ATN. creatinine continues to rise. despite such she remains nonoliguric. will obtain CT abd/pelvis to r/o obstruction from kidney stone, etc. if Cr continues to rise then consider nephrology consultation. (3) Acute UTI: 2nd to MDR e.coli. d/c zosyn; change to IV ertapenem. follow blood cultures. (4) Elevated troponin: Likely myocardial demand ischemia in setting of severe sepsis. Doubt ACS. No ischemic symptoms. (5) DM type 2 (diabetes mellitus, type 2): Pharmacy providing glycemic recommendations for basal-bolus insulin. Appreciate their assistance. Holding metformin and Sitaglliptin. (6) Afib: NSR overnight. INR >3 - hold coumadin; repeat INR am. Metoprolol has been resumed. Continue amiodarone. (7) Hypothyroid: Chronic. Stable. TSH=2.46 Continue Synthroid 125mcg po daily (8) Proteinuria: Patient with 3+ protein in urine, low albumin in the 2s. This is contributing to poor wound healing of right hip among other factors. Consider initiating low dose Celestino-inhibitor for renal protection. (9) Surgical wound, non healing: Right hip with chronic, non-healing wound. No significant pain or drainage. Continue with acetic acid washes and dressing changes daily. (10) Asthma: Continue all usual meds. (11) CVA (cerebral vascular accident): Remote history. Cont asa for secondary prevention. (12) Hypertension: BPs well controlled. holding lasix due to DIANNE. (13) CHF (congestive heart failure): chronic diastolic - compensated. cont metoprolol. hold lasix due to DIANNE. (14) Morbid obesity with body mass index of 50 or higher: BMI 68.9 (15) DVT prophylaxis: coumadin left message for printed circuit boards contact printer in the chart - 05/08 Admission and Anticipated Discharge Date Admission Date: May 06, 2020 Subjective patient feels nearly back to normal. eating well. no fevers/chills. occasional "wheeze" but no dyspnea at rest. denies any back or abdominal pain. tele overnight wnl. sanches still in place with good UOP. Review of Systems Constitutional: no fever, no chills, no fatigue and no anorexia Respiratory: no dyspnea Cardiovascular: no chest pain Gastrointestinal: + bloating (For weeks/months ); no abdominal pain, no nausea and no vomiting Physical Exam Constitutional: + morbidly obese; no acute distress and no altered mental status ENMT: external ear and nose normal, oropharynx normal Respiratory: normal respiratory effort, lungs clear to auscultation Auscu ltation: + diminished lung sounds (Bases ) Cardiovascular: Rate/Rhythm: regular rate and regular rhythm Heart Sounds: normal S1 and normal S2; no murmur Vessels: posterior tibial pulses present and dorsalis pedis pulses present; no JVD Extremities: + edema (<1+ b/l ) Gastrointestinal (Abdomen): Inspection/Auscultation: + abdomen distended and normal bowel sounds Percussion/Palpation: + hernia (Umbilical; ?ventral vs diathesis recti superior portion of abdomen ); abdomen nontender and no hepatosplenomegaly Skin: open wound - right lateral hip - dressings intact, no drainage Psychiatric: A+Ox3, euthymic affect Results & Data Results & Data ([facility]) Vital Signs (Past 12 Hours) Vital Signs Temp Pulse Pulse Resp BP BP Pulse Ox 05/08/20 19:56 80 18 90 05/08/20 19:51 36.9 C 69 18 128/76 90 05/08/20 15:43 36.4 C L 63 18 124/69 91 05/08/20 15:30 62 05/08/20 13:13 80 20 99 05/08/20 11:50 36.6 C 76 18 101/60 98 Laboratory Results Laboratory Results - last 24 hr 05/08/20 05/08/20 05/08/20 00:00 04:19 07:22 WBC RBC Hgb Hct MCV MCH MCHC RDW Std Deviation RDW Coeff of Mehnaz Plt Count MPV PT 30.8 H INR 3.1 H Sodium Potassium Chloride Carbon Dioxide Anion Gap BUN Creatinine Est Cr Clr Drug Dosing Est GFR ( Amer) Est GFR (Non-Af Amer) BUN/Creatinine Ratio Glucose POC Glucose 108 H 121 H Calcium 05/08/20 05/08/20 05/08/20 07:26 07:26 07:26 WBC 10.85 H RBC 2.96 L Hgb 7.7 L Hct 25.0 L MCV 84.5 MCH 26.0 MCHC 30.8 L RDW Std Deviation 55.1 H RDW Coeff of Mehnaz 17.8 H Plt Count 301 MPV 10.0 PT INR Sodium 136 Potassium 4.3 Chloride 103 Carbon Dioxide 25 Anion Gap 8.0 BUN 63 H Creatinine 2.54 H Est Cr Clr Drug Dosing 33.1 Est GFR ( Amer) 22.2 Est GFR (Non-Af Amer) 19.1 BUN/Creatinine Ratio 24.9 H Glucose 125 H POC Glucose 144 H Calcium 8.5 05/08/20 05/08/20 05/08/20 11:17 16:36 18:31 WBC RBC Hgb Hct MCV MCH MCHC RDW Std Deviation RDW Coeff of Mehnaz Plt Count MPV PT INR Sodium Potassium Chloride Carbon Dioxide Anion Gap BUN Creatinine Est Cr Clr Drug Dosing Est GFR ( Amer) Est GFR (Non-Af Amer) BUN/Creatinine Ratio Glucose POC Glucose 214 H 150 H 181 H Calcium 05/08/20 20:32 WBC RBC Hgb Hct MCV MCH MCHC RDW Std Deviation RDW Coeff of Mehnaz Plt Count MPV PT INR Sodium Potassium Chloride Carbon Dioxide Anion Gap BUN Creatinine Est Cr Clr Drug Dosing Est GFR ( Amer) Est GFR (Non-Af Amer) BUN/Creatinine Ratio Glucose POC Glucose 165 H Calcium PG Care Time/CCT Total # of Minutes Spent Total Time Spent with Patient: Total time spent is greater than 50% in coordination of care (as documented) at patient's floor/unit and/or counseling patient: Coding Level of Care Code 10618 Subseq Hosp Care Lvl 3 Diagnoses Sepsis A41.51; R65.20; N17.0 Sepsis acute organ dysfunction status: with acute organ dysfunction Sepsis type: Escherichia coli Severe sepsis acute organ dysfunction type: acute renal failure Acute renal failure type: with acute tubular necrosis Severe sepsis shock status: without septic shock DIANNE (acute kidney injury) N17.9 Acute UTI N39.0 Elevated troponin R79.89 DM type 2 (diabetes mellitus, type 2) E11.9; Z79.4 Diabetes mellitus complication status: without complication 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 inspector insulin use: with watermelon inspector use Afib I48.91 Atrial fibrillation type: unspecified Hypothyroid E03.9 Hypothyroidism type: unspecified Proteinuria R80.9 Proteinuria type: unspecified Surgical wound, non healing T81.89XA Encounter type: initial encounter Asthma J45.909 Asthma complication type: unspecified Asthma persistence: unspecified Asthma severity: unspecified severity CVA (cerebral vascular accident) I63.9 CVA mechanism: unspecified Hypertension I10 Hypertension type: essential hypertension CHF (congestive heart failure) I50.32 Heart failure chronicity: chronic Heart failure type: diastolic Morbid obesity with body mass index of 50 or higher E66.01 DVT prophylaxis Z29.9 (1) DM type 2 (diabetes mellitus, type 2) Diabetes mellitus complication status: without complication Diabetes mellitus detention insulin use: with detention use Qualified Code(s): E11.9 - Type 2 diabetes mellitus without complications; Z79.4 - senior living (current) use of insulin (2) CHF (congestive heart failure) Heart failure chronicity: chronic Heart failure type: diastolic Qualified Code(s): I50.32 - Chronic diastolic (congestive) heart failure (3) Afib Atrial fibrillation type: unspecified Qualified Code(s): I48.91 - Unspecified atrial fibrillation (4) Hypothyroid Hypothyroidism type: unspecified Qualified Code(s): E03.9 - Hypothyroidism, unspecified (5) Proteinuria Proteinuria type: unspecified Qualified Code(s): R80.9 - Proteinuria, unspecified (6) Sepsis Sepsis acute organ dysfunction status: with acute organ dysfunction Sepsis type: Escherichia coli Severe sepsis acute organ dysfunction type: acute renal failure Acute renal failure type: with acute tubular necrosis Severe sepsis shock status: without septic shock Qualified Code(s): A41.51 - Sepsis due to Escherichia coli [E. coli]; R65.20 - Severe sepsis without septic shock; N17.0 - Acute kidney failure with tubular necrosis (7) Surgical wound, non healing Encounter type: initial encounter Qualified Code(s): T81.89XA - Other complications of procedures, not elsewhere classified, initial encounter (8) Hypertension Hypertension type: essential hypertension Qualified Code(s): I10 - Essential (primary) hypertension (9) CVA (cerebral vascular accident) CVA mechanism: unspecified Qualified Code(s): I63.9 - Cerebral infarction, unspecified (10) Asthma Asthma complication type: unspecified Asthma persistence: unspecified Asthma severity: unspecified severity Qualified Code(s): J45.909 - Unspecified asthma, uncomplicated
[2020-05-09] MEDS: LEVOTHYROXINE SODIUM 125 MCG TABLET PO SCH (05:18)
[2020-05-09] MEDS: ALBUT/IPRATROP 3MG/0.5MG NEB 3 ML VIAL INH SCH ×3 (06:58→19:15)
[2020-05-09 07:47] LABS: Hematocrit (blood only) 25.3 % (37-47); Hemoglobin 7.9 g/dL (12.0-16.0); Mean Corpuscular Hemoglobin 26.2 pg (25-34); Mean Corpuscular Hgb Conc 31.2 g/dL (32-36); Mean Corpuscular Volume 84.1 fL (80-100); Mean Platelet Volume 9.5 fL (7.4-10.4); Platelet Count 297 K/uL (130-400); RDW Coefficient of Variation 17.7 % (11.5-14.5); RDW Standard Deviation 54.6 fL (36.4-46.3); Red Blood Count 3.01 M/uL (4.2-5.4); White Blood Count 6.55 K/uL (4.8-10.8)
[2020-05-09 07:55] LABS: INR 2.8 (0.9-1.1); Prothrombin Time 27.8 Seconds (9.0-12.0)
[2020-05-09] MEDS: INSULIN GLARGINE SOLOSTAR 100 UNITS/ML 3 ML PEN SC SCH ×2 (08:01→22:27)
[2020-05-09] MEDS: METOPROLOL TARTRATE 25 MG TAB PO SCH ×2 (08:01→21:31)
[2020-05-09] MEDS: MONTELUKAST SODIUM 10 MG TABLET PO SCH (08:02)
[2020-05-09] MEDS: FERROUS SULFATE 325 MG TAB PO SCH (08:02)
[2020-05-09] MEDS: GABAPENTIN 600 MG TAB PO SCH ×3 (08:02→21:32)
[2020-05-09] MEDS: FLUTICASONE/VILANTEROL 200/25MCG 14 PUFFS/INHALER INH SCH (08:02)
[2020-05-09] MEDS: AMIODARONE 200 MG TAB PO SCH (08:02)
[2020-05-09] MEDS: LACTOBACILLUS ACIDOPHILUS (FLORANEX) TAB PO SCH ×3 (08:03→16:48)
[2020-05-09] MEDS: INSULIN ASPART 100 UNITS/ML 3 ML PEN SC SCH ×4 (08:05→22:27)
[2020-05-09 08:21] LABS: BUN Creatinine Ratio 25.3 (10-20); Calcium 8.3 mg/dl (8.5-10.1); Creatinine Clr Calc Pharmacy 33.5 ml/min; Est GFR (African American) 22.6; Est GFR (Non-African American) 19.5; Potassium 4.6 mmol/L (3.5-5.1)
[2020-05-09] MEDS: MENTHOL-ZINC OXIDE 360 APPLN/120 GM TUBE EXT SCH ×3 (09:54→21:38)
[2020-05-09] MEDS: DICLOFENAC SOD 1% GEL 100 GM TUBE EXT SCH ×4 (09:55→21:30)
--- NOTE | 2020-05-09 12:57 | Hospitalist Progress Note ---
Date of Service May 09, 2020 Assessment & Plan (1) Sepsis: 2nd to multi-drug resistant e.coli UTI. blood cultures negative. sepsis was SEVERE - DIANNE, hypotension requiring significant fluid resuscitation but no pressors. had been on zosyn; now on daily ertapenem. today is day #4 of IV abx. plan 7-10 days of Rx. (2) DIANNE (acute kidney injury): sepsis-associated ATN. creatinine appears to have plateaued. despite such she remains nonoliguric. CT abd/pelvis yesterday did not show obstruction. if Cr continues to rise then consider nephrology consultation. (3) Acute UTI: 2nd to MDR e.coli continue IV ertapenem blood cultures remain negative (4) Elevated troponin: Likely myocardial demand ischemia in setting of severe sepsis. Doubt ACS. No ischemic symptoms. (5) DM type 2 (diabetes mellitus, type 2): Pharmacy providing glycemic recommendations for basal-bolus insulin. Appreciate their assistance. Control is excellent. Holding metformin and Sitaglliptin. (6) Afib: Remains NSR. INR <3 today - continue coumadin. INR in am. Continue metoprolol. Continue amiodarone. (7) Hypothyroid: Chronic. Stable. TSH=2.46 Continue Synthroid 125mcg po daily (8) Proteinuria: Patient with 3+ protein in urine, low albumin in the 2s. This is contributing to poor wound healing of right hip among other factors. Consider initiating low dose Celestino-inhibitor for renal protection. (9) Surgical wound, non healing: Right hip with chronic, non-healing wound. No significant pain or drainage. Continue with acetic acid washes and dressing changes daily. (10) Asthma: Continue all usual meds. wheezing today is likely from pulmonary edema. (11) CVA (cerebral vascular accident): Remote history. Cont asa for secondary prevention. (12) Hypertension: BPs well controlled. (13) CHF (congestive heart failure): decompensated - acute/chronic diastolic. decompensated due to DIANNE, having to hold lasix, and fluid resuscitation early in hospital course for sepsis. bumex 1mg IV x 1 now. repeat BMP am. if Cr improves tomorrow continue diuresis with lasix or bumex IV. (14) Morbid obesity with body mass index of 50 or higher: BMI 68 (15) Gastroparesis: CT on 05/08 showed distended stomach with fluid. Patient is long-standing diabetic. she has had chronic post-prandial bloating and some nausea. likely has gastroparesis. these symptoms are very uncomfortable for her. will trial reglan - start 2.5mg AC. ideally she has GI consult after d/c for consideration of endoscopy to ensure nothing else is going on in stomach. (16) Ovarian cyst, bilateral: given her age this is concerning for ovarian ca I discussed the cysts with her today recommended coffee roaster helper referral post-d/c (17) DVT prophylaxis: coumadin left message for track service person in the chart - 05/08 Admission and Anticipated Discharge Date Admission Date: May 06, 2020 Subjective patient feels well today with exception of dyspnea and wheezing. she is eating well. denies any pain. no fevers/chills. telemetry stable overnight. good UOP despite DIANNE. Review of Systems Respiratory: + dyspnea Cardiovascular: + orthopnea; no chest pain Gastrointestinal: no abdominal pain, no nausea and no vomiting Physical Exam Constitutional: + morbidly obese; no acute distress and no altered mental status looks mildly tachypneic and modestly short of breath ENMT: external ear and nose normal, oropharynx normal Respiratory: + tachypneic Auscultation: + diminished lung sounds (Bases ), + crackles and + wheezes Cardiovascular: Rate/Rhythm: regular rate and regular rhythm Heart Sounds: normal S1 and normal S2; no murmur Vessels: posterior tibial pulses present and dorsalis pedis pulses present; no JVD Extremities: + edema (Trace ) Gastrointestinal (Abdomen): Inspection/Auscultation: + abdomen distended and normal bowel sounds Percussion/Palpation: + hernia (Umbilical and diasthesis recti ); abdomen nontender and no hepatosplenomegaly Psychiatric: A+Ox3, euthymic affect Results & Data Results & Data ([facility]) Vital Signs (Past 12 Hours) Vital Signs Temp Pulse Pulse Resp BP BP Pulse Ox 05/09/20 11:34 36.6 C 56 L 20 125/74 95 05/09/20 06:59 36.6 C 57 L 16 145/67 H 99 05/09/20 06:58 56 L 56 L 18 98 05/09/20 04:10 36.7 C 70 16 109/65 95 05/09/20 03:05 69 14 94 Laboratory Results Laboratory Results - last 24 hr 05/08/20 05/08/20 05/08/20 16:36 18:31 20:32 WBC RBC Hgb Hct MCV MCH MCHC RDW Std Deviation RDW Coeff of Mehnaz Plt Count MPV PT INR Sodium Potassium Chloride Carbon Dioxide Anion Gap BUN Creatinine Est Cr Clr Drug Dosing Est GFR ( Amer) Est GFR (Non-Af Amer) BUN/Creatinine Ratio Glucose POC Glucose 150 H 181 H 165 H Calcium 05/09/20 05/09/20 05/09/20 07:07 07:07 07:07 WBC 6.55 RBC 3.01 L Hgb 7.9 L Hct 25.3 L MCV 84.1 MCH 26.2 MCHC 31.2 L RDW Std Deviation 54.6 H RDW Coeff of Mehnaz 17.7 H Plt Count 297 MPV 9.5 PT 27.8 H INR 2.8 H Sodium 138 Potassium 4.6 Chloride 105 Carbon Dioxide 26 Anion Gap 8.0 BUN 63 H Creatinine 2.50 H Est Cr Clr Drug Dosing 33.5 Est GFR ( Amer) 22.6 Est GFR (Non-Af Amer) 19.5 BUN/Creatinine Ratio 25.3 H Glucose 111 H POC Glucose Calcium 8.3 L 05/09/20 05/09/20 07:26 11:22 WBC RBC Hgb Hct MCV MCH MCHC RDW Std Deviation RDW Coeff of Mehnaz Plt Count MPV PT INR Sodium Potassium Chloride Carbon Dioxide Anion Gap BUN Creatinine Est Cr Clr Drug Dosing Est GFR ( Amer) Est GFR (Non-Af Amer) BUN/Creatinine Ratio Glucose POC Glucose 133 H 167 H Calcium PG Care Time/CCT Total # of Minutes Spent Total Time Spent with Patient: Total time spent is greater than 50% in coordination of care (as documented) at patient's floor/unit and/or counseling patient: Coding Level of Care Code 34783 Subseq Hosp Care Lvl 3 Diagnoses Sepsis A41.51; R65.20; N17.0 Acute renal failure type: with acute tubular necrosis Sepsis acute organ dysfunction status: with acute organ dysfunction Sepsis type: Escherichia coli Severe sepsis acute organ dysfunction type: acute renal failure Severe sepsis shock status: without septic shock DIANNE (acute kidney injury) N17.9 Acute UTI N39.0 Elevated troponin R79.89 DM type 2 (diabetes mellitus, type 2) E11.9; Z79.4 Diabetes mellitus complication status: without complication Diabetes mellitus fdc insulin use: with fdc use Afib I48.91 Atrial fibrillation type: unspecified Hypothyroid E03.9 Hypothyroidism type: unspecified Proteinuria R80.9 Proteinuria type: unspecified Surgical wound, non healing T81.89XA Encounter type: initial encounter Asthma J45.909 Asthma complication type: unspecified Asthma persistence: unspecified Asthma severity: unspecified severity CVA (cerebral vascular accident) I63.9 CVA mechanism: unspecified Hypertension I10 Hypertension type: essential hypertension CHF (congestive heart failure) I50.32 Heart failure chronicity: chronic Heart failure type: diastolic Morbid obesity with body mass index of 50 or higher E66.01 Gastroparesis K31.84 Ovarian cyst, bilateral N83.201; N83.202 DVT prophylaxis Z29.9 (1) DM type 2 (diabetes mellitus, type 2) Diabetes mellitus complication status: without complication Diabetes mellitus refrigeration brazer/solderer insulin use: with fdc use Qualified Code(s): E11.9 - Type 2 diabetes mellitus without complications; Z79.4 - title agent (current) use of insulin (2) CHF (congestive heart failure) Heart failure chronicity: chronic Heart failure type: diastolic Qualified Code(s): I50.32 - Chronic diastolic (congestive) heart failure (3) Afib Atrial fibrillation type: unspecified Qualified Code(s): I48.91 - Unspecified atrial fibrillation (4) Hypothyroid Hypothyroidism type: unspecified Qualified Code(s): E03.9 - Hypothyroidism, unspecified (5) Proteinuria Proteinuria type: unspecified Qualified Code(s): R80.9 - Proteinuria, unspecified (6) Sepsis Acute renal failure type: with acute tubular necrosis Sepsis acute organ dysfunction status: with acute organ dysfunction Sepsis type: Escherichia coli Severe sepsis acute organ dysfunction type: acute renal failure Severe sepsis shock status: without septic shock Qualified Code(s): A41.51 - Sepsis due to Escherichia coli [E. coli]; R65.20 - Severe sepsis without septic shock; N17.0 - Acute kidney failure with tubular necrosis (7) Surgical wound, non healing Encounter type: initial encounter Qualified Code(s): T81.89XA - Other complications of procedures, not elsewhere classified, initial encounter (8) Hypertension Hypertension type: essential hypertension Qualified Code(s): I10 - Essential (primary) hypertension (9) CVA (cerebral vascular accident) CVA mechanism: unspecified Qualified Code(s): I63.9 - Cerebral infarction, unspecified (10) Asthma Asthma complication type: unspecified Asthma persistence: unspecified Asthma severity: unspecified severity Qualified Code(s): J45.909 - Unspecified asthma, uncomplicated
[2020-05-09] MEDS ORDERED: BUMETANIDE 1 MG in SYRINGE 0 ML IV ONE (13:00)
[2020-05-09] MEDS: ACETIC ACID 0.25% IRRIG SOLN 1000 ML PLCT IR SCH ×2 (13:03→21:29)
[2020-05-09] MEDS: MUPIROCIN 2% OINT 22 GM TUBE EXT SCH ×2 (13:04→21:38)
[2020-05-09] MEDS: METOCLOPRAMIDE HCL 5 MG TABLET PO SCH (16:47)
[2020-05-09] MEDS: WARFARIN SOD 4 MG TAB PO SCH (16:48)
[2020-05-09] MEDS: ERTAPENEM SODIUM 1,000 MG in SODIUM CHLORIDE 0.9% 50 ML IV SCH (21:28)
[2020-05-09] MEDS: FLUTICASONE PROPIONATE NA SPR 16 GM BTL SCH (21:29)
[2020-05-09] MEDS: ATORVASTATIN 40 MG TAB PO SCH (21:31)
[2020-05-10 05:49] LABS: Hematocrit (blood only) 26.6 % (37-47); Mean Corpuscular Hemoglobin 25.9 pg (25-34); Mean Corpuscular Hgb Conc 30.1 g/dL (32-36); Mean Corpuscular Volume 86.1 fL (80-100); Mean Platelet Volume 9.6 fL (7.4-10.4); Platelet Count 327 K/uL (130-400); RDW Coefficient of Variation 17.5 % (11.5-14.5); RDW Standard Deviation 55.1 fL (36.4-46.3); Red Blood Count 3.09 M/uL (4.2-5.4); White Blood Count 7.82 K/uL (4.8-10.8)
[2020-05-10 05:57] LABS: INR 2.3 (0.9-1.1); Prothrombin Time 22.9 Seconds (9.0-12.0)
[2020-05-10 06:25] LABS: BUN Creatinine Ratio 26.7 (10-20); Calcium 8.7 mg/dl (8.5-10.1); Creatinine Clr Calc Pharmacy 37.7 ml/min; Est GFR (African American) 26.4; Est GFR (Non-African American) 22.8; Potassium 4.6 mmol/L (3.5-5.1)
[2020-05-10] MEDS: LEVOTHYROXINE SODIUM 125 MCG TABLET PO SCH (06:28)
[2020-05-10] MEDS: ALBUT/IPRATROP 3MG/0.5MG NEB 3 ML VIAL INH SCH ×3 (06:56→19:40)
[2020-05-10] MEDS: INSULIN GLARGINE SOLOSTAR 100 UNITS/ML 3 ML PEN SC SCH ×2 (07:46→22:01)
[2020-05-10] MEDS: INSULIN ASPART 100 UNITS/ML 3 ML PEN SC SCH ×4 (07:46→22:00)
[2020-05-10] MEDS: METOCLOPRAMIDE HCL 5 MG TABLET PO SCH ×3 (07:47→16:40)
[2020-05-10] MEDS: METOPROLOL TARTRATE 25 MG TAB PO SCH ×2 (07:47→21:57)
[2020-05-10] MEDS: GABAPENTIN 600 MG TAB PO SCH ×3 (07:47→21:58)
[2020-05-10] MEDS: MONTELUKAST SODIUM 10 MG TABLET PO SCH (07:47)
[2020-05-10] MEDS: FLUTICASONE/VILANTEROL 200/25MCG 14 PUFFS/INHALER INH SCH (07:48)
[2020-05-10] MEDS: LACTOBACILLUS ACIDOPHILUS (FLORANEX) TAB PO SCH ×3 (07:48→16:39)
[2020-05-10] MEDS: AMIODARONE 200 MG TAB PO SCH (07:48)
[2020-05-10] MEDS: DICLOFENAC SOD 1% GEL 100 GM TUBE EXT SCH ×4 (07:49→22:00)
[2020-05-10] MEDS: FERROUS SULFATE 325 MG TAB PO SCH (07:49)
[2020-05-10] MEDS: MENTHOL-ZINC OXIDE 360 APPLN/120 GM TUBE EXT SCH ×3 (10:43→21:56)
[2020-05-10] MEDS: MUPIROCIN 2% OINT 22 GM TUBE EXT SCH ×2 (10:43→21:56)
[2020-05-10] MEDS: ACETIC ACID 0.25% IRRIG SOLN 1000 ML PLCT IR SCH ×2 (10:44→21:55)
[2020-05-10] MEDS: WARFARIN SOD 4 MG TAB PO SCH (16:40)
[2020-05-10] MEDS: ERTAPENEM SODIUM 1,000 MG in SODIUM CHLORIDE 0.9% 50 ML IV SCH (21:55)
[2020-05-10] MEDS: FLUTICASONE PROPIONATE NA SPR 16 GM BTL SCH (21:56)
[2020-05-10] MEDS: ATORVASTATIN 40 MG TAB PO SCH (21:57)
[2020-05-11] MEDS: LEVOTHYROXINE SODIUM 125 MCG TABLET PO SCH (04:51)
[2020-05-11] MEDS: ALBUT/IPRATROP 3MG/0.5MG NEB 3 ML VIAL INH SCH ×2 (06:59→13:50)
[2020-05-11] MEDS: INSULIN GLARGINE SOLOSTAR 100 UNITS/ML 3 ML PEN SC SCH (07:44)
[2020-05-11] MEDS: INSULIN ASPART 100 UNITS/ML 3 ML PEN SC SCH ×2 (07:44→12:31)
[2020-05-11] MEDS: LACTOBACILLUS ACIDOPHILUS (FLORANEX) TAB PO SCH ×3 (07:45→15:13)
[2020-05-11] MEDS: FLUTICASONE/VILANTEROL 200/25MCG 14 PUFFS/INHALER INH SCH (07:45)
[2020-05-11] MEDS: FERROUS SULFATE 325 MG TAB PO SCH (07:45)
[2020-05-11] MEDS: MONTELUKAST SODIUM 10 MG TABLET PO SCH (07:45)
[2020-05-11] MEDS: METOPROLOL TARTRATE 25 MG TAB PO SCH (07:46)
[2020-05-11] MEDS: METOCLOPRAMIDE HCL 5 MG TABLET PO SCH ×3 (07:46→15:13)
[2020-05-11] MEDS: GABAPENTIN 600 MG TAB PO SCH ×2 (07:46→14:24)
[2020-05-11] MEDS: AMIODARONE 200 MG TAB PO SCH (07:46)
[2020-05-11] MEDS: MUPIROCIN 2% OINT 22 GM TUBE EXT SCH (07:47)
[2020-05-11] MEDS: ACETIC ACID 0.25% IRRIG SOLN 1000 ML PLCT IR SCH (07:47)
[2020-05-11] MEDS: DICLOFENAC SOD 1% GEL 100 GM TUBE EXT SCH ×2 (07:48→14:23)
[2020-05-11] MEDS: MENTHOL-ZINC OXIDE 360 APPLN/120 GM TUBE EXT SCH ×2 (07:48→14:23)
--- NOTE | 2020-05-11 08:54 | Hospitalist Progress Note ---
Date of Service May 10, 2020 Assessment & Plan (1) Sepsis: 2nd to multi-drug resistant e.coli UTI. blood cultures negative. sepsis was SEVERE - DIANNE, hypotension requiring significant fluid resuscitation but no pressors. had been on zosyn; now on daily ertapenem. Abx started 05/06 plan 7-10 days of Rx. (2) DIANNE (acute kidney injury): sepsis-associated ATN. creatinine improving d/c sanches on 05/[address] abd/pelvis yesterday did not show obstruction. if Cr continues to rise then consider nephrology consultation. (3) Acute UTI: 2nd to MDR e.coli seen on cx continue IV ertapenem blood cultures remain negative (4) Elevated troponin: Likely myocardial demand ischemia in setting of severe sepsis. Doubt ACS. No ischemic symptoms. (5) DM type 2 (diabetes mellitus, type 2): Pharmacy providing glycemic recommendations for basal-bolus insulin. Appreciate their assistance. Control is excellent. Holding metformin and Sitaglliptin. (6) Afib: Remains NSR. INR <3 - continue coumadin. INR in am. Continue metoprolol. Continue amiodarone. (7) Hypothyroid: Chronic. Stable. TSH=2.46 Continue Synthroid 125mcg po daily (8) Proteinuria: Patient with 3+ protein in urine, low albumin in the 2s. This is contributing to poor wound healing of right hip among other factors. Consider initiating low dose Celestino-inhibitor for renal protection. (9) Surgical wound, non healing: Right hip with chronic, non-healing wound. No significant pain or drainage. Continue with acetic acid washes and dressing changes daily. (10) Asthma: Continue all usual meds. wheezing today is likely from pulmonary edema. (11) CVA (cerebral vascular accident): Remote history. Cont asa for secondary prevention. (12) Hypertension: BPs well controlled. (13) CHF (congestive heart failure): decompensated - acute/chronic diastolic. decompensated due to DIANNE, having to hold lasix, and fluid resuscitation early in hospital course for sepsis. bumex 1mg IV x 1 now. repeat BMP am. if Cr improves tomorrow continue diuresis with lasix or bumex IV. (14) Morbid obesity with body mass index of 50 or higher: BMI 68 (15) Gastroparesis: CT on 05/08 showed distended stomach with fluid. Patient is long-standing diabetic. she has had chronic post-prandial bloating and some nausea. likely has gastroparesis. these symptoms are very uncomfortable for her. reglan trial - start 2.5mg AC. ideally she has GI consult after d/c for consideration of endoscopy to ensure nothing else is going on in stomach. (16) Ovarian cyst, bilateral: given her age this is concerning for ovarian ca Pt is aware of imaging and need for further imaging/f/u recommended terminal computer operator referral post-d/c (17) DVT prophylaxis: coumadin Admission and Anticipated Discharge Date Admission Date: May 06, 2020 Subjective Pt states she is doing well today. She has been tolerating PO. No issues with starting reglan, but she has only had one dose thus far. Pt denies fever, SOB, chest pain, abd pain, n/v/c/d, LE pain or swelling. Review of Systems Review of Systems: Pertinent positives and negatives reviewed in HPI--all others negative Physical Exam Constitutional: WD/WN, vitals as above Eyes: normal visual fraser by confrontation and + anicteric sclerae Neck: normal visual inspection and trachea midline Respiratory: normal respiratory effort; no respiratory distress Auscultation: no wheezes Cardiovascular: Rate/Rhythm: regular rate and regular rhythm Gastrointestinal (Abdomen): Inspection/Auscultation: abdomen not distended Percussion/Palpation: abdomen soft; abdomen nontender Musculoskeletal: Head/Neck/Chest: normocephalic and head atraumatic Trace edema, peripheral pulses intact Skin: no rashes, warm and dry Neurologic: awake; not confused Speech / Cognition: normal speech Psychiatric: A+Ox3, euthymic affect Results & Data Results & Data ([facility]) Vital Signs (Past 12 Hours) Vital Signs Temp Pulse Pulse Resp BP Pulse Ox 05/11/20 07:45 36.5 C 61 18 147/76 H 96 05/11/20 07:00 55 L 55 L 17 99 05/11/20 05:00 36.6 C 56 L 22 139/84 56 L 05/11/20 02:41 55 L 20 95 05/10/20 23:59 60 18 96 05/10/20 23:52 37.0 C 65 22 124/75 90 PG Care Time/CCT Total # of Minutes Spent Total Time Spent with Patient: Total time spent is greater than 50% in coordination of care (as documented) at patient's floor/unit and/or counseling patient: Coding Level of Care Code 46803 Subs Hosp Care Lvl 3 Diagnoses Sepsis A41.51; R65.20; N17.0 Acute renal failure type: with acute tubular necrosis Sepsis acute organ dysfunction status: with acute organ dysfunction Sepsis type: Escherichia coli Severe sepsis acute organ dysfunction type: acute renal failure Severe sepsis shock status: without septic shock DIANNE (acute kidney injury) N17.9 Acute UTI N39.0 Elevated troponin R79.89 DM type 2 (diabetes mellitus, type 2) E11.9; Z79.4 Diabetes mellitus oysterman insulin use: with oysterman use Diabetes mellitus complication status: without complication Afib I48.91 Atrial fibrillation type: unspecified Hypothyroid E03.9 Hypothyroidism type: unspecified Proteinuria R80.9 Proteinuria type: unspecified Surgical wound, non healing T81.89XA Encounter type: initial encounter Asthma J45.909 Asthma severity: unspecified severity Asthma persistence: unspecified Asthma complication type: unspecified CVA (cerebral vascular accident) I63.9 CVA mechanism: unspecified Hypertension I10 Hypertension type: essential hypertension CHF (congestive heart failure) I50.32 Heart failure type: diastolic Heart failure chronicity: chronic Morbid obesity with body mass index of 50 or higher E66.01 Gastroparesis K31.84 Ovarian cyst, bilateral N83.201; N83.202 DVT prophylaxis Z29.9 (1) Sepsis Acute renal failure type: with acute tubular necrosis Sepsis acute organ dysfunction status: with acute organ dysfunction Sepsis type: Escherichia coli Severe sepsis acute organ dysfunction type: acute renal failure Severe sepsis shock status: without septic shock Qualified Code(s): A41.51 - Sepsis due to Escherichia coli [E. coli]; R65.20 - Severe sepsis without septic shock; N17.0 - Acute kidney failure with tubular necrosis (2) DM type 2 (diabetes mellitus, type 2) Diabetes mellitus oysterman insulin use: with care home use Diabetes mellitus complication status: without complication Qualified Code(s): E11.9 - Type 2 diabetes mellitus without complications; Z79.4 - detention (current) use of insulin (3) Afib Atrial fibrillation type: unspecified Qualified Code(s): I48.91 - Unspecified atrial fibrillation (4) Hypothyroid Hypothyroidism type: unspecified Qualified Code(s): E03.9 - Hypothyroidism, unspecified (5) Proteinuria Proteinuria type: unspecified Qualified Code(s): R80.9 - Proteinuria, unspecified (6) Surgical wound, non healing Encounter type: initial encounter Qualified Code(s): T81.89XA - Other complications of procedures, not elsewhere classified, initial encounter (7) Asthma Asthma severity: unspecified severity Asthma persistence: unspecified Asthma complication type: unspecified Qualified Code(s): J45.909 - Unspecified asthma, uncomplicated (8) CVA (cerebral vascular accident) CVA mechanism: unspecified Qualified Code(s): I63.9 - Cerebral infarction, unspecified (9) Hypertension Hypertension type: essential hypertension Qualified Code(s): I10 - Essential (primary) hypertension (10) CHF (congestive heart failure) Heart failure type: diastolic Heart failure chronicity: chronic Qualified Code(s): I50.32 - Chronic diastolic (congestive) heart failure
[2020-05-11 10:27] LABS: BUN Creatinine Ratio 28.7 (10-20); Calcium 8.7 mg/dl (8.5-10.1); Creatinine Clr Calc Pharmacy 40.9 ml/min; Est GFR (African American) 29.1; Est GFR (Non-African American) 25.1; Potassium 4.6 mmol/L (3.5-5.1)
[2020-05-11 10:59] LABS: Prothrombin Time 20.1 Seconds (9.0-12.0)
--- NOTE | 2020-05-11 12:56 | Pharmacy Report ---
Pharmacy Glycemic Short Note 2 - Date of Service May 11, 2020 - Glycemic Short BSG Results (Last 24 hours): 05/10/20 05/10/20 05/11/20 16:28 20:36 07:28 Glucose POC Glucose 175 H 151 H 141 H 05/11/20 05/11/20 09:21 11:41 Glucose 131 H POC Glucose 198 H ASSESSMENT: * Rekha has been stable on ~63-70 units of insulin/day over the past 3 days * She has required minimal changes to her regimen since transition off IV insulin infusion * Fasting BSG is trending upward. I will continue Lantus dose per scale and lower the threshold so that she receives 20 units once BSG is > 140 mg/dL (previously set for BSG > 160 mg/dL. * Will continue current Novolog order per post prandial BSGs are only mildly elevated at this time. PLAN FOR INPATIENT GLYCEMIC CONTROL: * Basal insulin * Lantus 15-25 units BID based upon BSG: * 15 units for BSG < 140 * 20 units for BSG 140-200 * 25 units for BSG > 200 * Bolus insulin - * NovoLog per scale ACHS or Q6hrs while NPO * Goal Range: Low 110 mg/dL - High 140 mg/dL * Correction Factor: 15 mg/dL/unit * Nutritional / Prandial insulin per carb ratio of 1 unit per 6 grams CHO consumed PLAN FOR DISCHARGE: * A1c = 7.5% (05/07/20) -> please note this value may be unreliable due to anemia of chronic kidney disease. In this setting, recommend routine monitoring of outpatient glucose to determine level of control/need for therapy adjustment. * Monitor renal function closely. Patients CrCl has ranged from 33-46 mg/dL. Metformin should be discontinued if this falls below 30 mL/min. Thank you.
--- NOTE | 2020-05-11 13:25 | Discharge Summary ---
Date of Service May 11, 2020 Admission HPI Per Admitting Provider Rekha Khanna is a 64yo C female presenting from [facility] with sepsis. She reports approximately 8 days of watery non-bloody/non-mucoid diarrhea (resolved the last two days), cough productive for clear sputum. Also with nausea and some vomiting. She developed fever, chills and body aches yesterday to 100.9, today her temperature was 101. Patient resides at [facility]. She reports her roommate and some residents down the [place] having diarrhea. She denies recent travel or contact with Covid- 19 positive people. Patient denies headache, visual change, chest pain, SOB. She denies abdominal pain, dysuria/hematuria. No rashes on her skin. She has a chronic non-healing wound at the right lateral hip at the site of a prosthesis. Wound is cleaned with acetic acid wash and dressed with Bactroban. She denies worsening pain or drainage at the site. No pain in her leg. No additional complaints at this time. Patient was quite ill in January with E. coli bacteremia (MDR, Sn to Zosyn). She required MICU care with vasopressor support. Ultimately discharged to complete 4 weeks of Ertapenem IV therapy. ER Course: Daptomycin 550mg, Dexamethasone 10mg IV, Ibuprofen 800mg PO, Zosyn 4.5gm, NSS x 2 L Principal Diagnosis Pt continues to feel overall improved. She is uncertain if reglan is helping her feelings of fullness with PO intake. No abd pain. Pt denies fever, SOB, chest pain, abd pain, n/v/c/d, LE pain or swelling. No issues with UOP s/p d/c sanches on 05/10. Discharge Exam Constitutional WD/WN, vitals as above Eyes normal visual fraser by confrontation and + anicteric sclerae Neck normal visual inspection and trachea midline Respiratory normal respiratory effort, lungs clear to auscultation normal respiratory effort; no respiratory distress Auscultation: no wheezes Cardiovascular Rate/Rhythm: regular rate and regular rhythm Gastrointestinal (Abdomen) Inspection/Auscultation: abdomen not distended Percussion/Palpation: abdomen soft; abdomen nontender Musculoskeletal Head/Neck/Chest: normocephalic and head atraumatic Skin no rashes, warm and dry Neurologic awake; not confused Speech / Cognition: normal speech Psychiatric A+Ox3, euthymic affect Discharge Data Allergies Allergy/AdvReac Type Severity Reaction Status Date / Time Iodinated Contrast Media Allergy Intermediate HIVES Verified 05/06/20 04:19 Sulfa (Sulfonamide Allergy Intermediate HIVES Verified 05/06/20 04:19 Antibiotics) vancomycin Allergy Intermediate HIVES, GI Verified 05/06/20 04:19 UPSET latex Allergy Mild LOW LEVEL Verified 05/06/20 04:19 LATEX ALLERGY pineapple Allergy Unknown Unknown Verified 05/06/20 04:[address] HICKS Verified 05/06/20 04:19 ASKED THAT ALLERGY BE ADDED 07/31/08 Consultations 05/06/20 04:53 ED Decision to Admit Stat Ordered Studies 05/08/20 15:45 CT abd pelvis wo con Routine Hospital Course (1) Sepsis: 2nd to multi-drug resistant e.coli UTI. blood cultures negative. sepsis was SEVERE - DIANNE, hypotension requiring significant fluid resuscitation but no pressors. had been on zosyn; now on daily ertapenem--complete course as outpt with last dose on 05/16 Can give via port Abx started 05/06 (2) DIANNE (acute kidney injury): sepsis-associated ATN. creatinine improving, 2.0 on d/c, check PRP on 05/14 baseline is 1.4-1.6 d/c sanches on 05/10, UOP doing well CT abd/pelvis did not show obstruction. if Cr continues to rise then consider nephrology consultation. (3) Acute UTI: 2nd to MDR e.coli seen on cx continue IV ertapenem blood cultures remain negative (4) Elevated troponin: Likely myocardial demand ischemia in setting of severe sepsis. Doubt ACS. No ischemic symptoms. (5) DM type 2 (diabetes mellitus, type 2): Pharmacy providing glycemic recommendations for basal-bolus insulin. Appreciate their assistance. Control is excellent. Resume metformin and Sitaglliptin. (6) Afib: Remains NSR. INR <3 - continue coumadin. INR 2.0 on d/c Continue metoprolol. Continue amiodarone. (7) Hypothyroid: Chronic. Stable. TSH=2.46 Continue Synthroid 125mcg po daily (8) Proteinuria: Patient with 3+ protein in urine, low albumin in the 2s. This is contributing to poor wound healing of right hip among other factors. Consider initiating low dose Celestino-inhibitor for renal protection. (9) Surgical wound, non healing: Right hip with chronic, non-healing wound. No significant pain or drainage. Continue with acetic acid washes and dressing changes daily. (10) Asthma: Continue all usual meds. wheezing today is likely from pulmonary edema. (11) CVA (cerebral vascular accident): Remote history. Cont asa for secondary prevention. (12) Hypertension: BPs well controlled. (13) CHF (congestive heart failure): decompensated - acute/chronic diastolic. decompensated due to DIANNE, having to hold lasix, and fluid resuscitation early in hospital course for sepsis. Resume prior lasix dose (14) Morbid obesity with body mass index of 50 or higher: BMI 68 (15) Gastroparesis: CT on 05/08 showed distended stomach with fluid. Patient is long-standing diabetic. she has had chronic post-prandial bloating and some nausea. likely has gastroparesis. these symptoms are very uncomfortable for her. reglan trial - start 2.5mg AC. ideally she has GI consult after d/c for consideration of endoscopy to ensure nothing else is going on in stomach. (16) Ovarian cyst, bilateral: given her age this is concerning for ovarian ca Pt is aware of imaging and need for further imaging/f/u Pt will need pelvic US on d/c with recommended account general manager referral (17) DVT prophylaxis: coumadin Total Time Total Time Spent Total Time Spent (In Minutes): >30 Total Time Includes: Examination of the Patient, Discharge Planning, Medication Reconciliation and Other Discharge Plan Discharge Items Patient Disposition: Transfer Retirement Fac Reason For Visit: SEPSIS Discharge Diagnosis: Sepsis, DIANNE Condition on Discharge: Fair Activity: Resume your previous activity Non-emergency contact: Primary Care Provider Call non-emergency contact if: you have any medication questions and your symptoms worsen Follow-up/Referrals: Briseida Killian [Primary Care Provider] - Diet: Carb Consistent or DM2 and Heart Healthy Addtl Attending Provider Instructions: You should have your BMP checked on 05/14. Please note, pt should continue ertapenem 1g QD for the next 5 days (last dose 05/16/20) via her port. This could not be added to her med rec. You should have a transvaginal pelvic ultrasound to have your ovaries examined further. If the reglan does not help your eating issues, you may need to be seen by GI for scoping. Pending Studies at Discharge: Yes Studies:: COVID 19 testing (initial test neg, pt is asx. Testing required prior to return to facility) Stand-Alone Forms: My [facility] Skilled Items Patient informed of condition?: Yes DNR: No Discharge Level of Care: Skilled Communicable Disease: Yes Discharge Prognosis: Improving Lines: None Urinary Catheter: No Medications and DC Order Prescriptions: New metoclopramide HCl 5 mg Tablet 2.5 mg PO AC Qty: 90 RF: 0 Continued gabapentin 600 mg tablet 600 mg PO TID RF: 0 fluticasone propionate 50 mcg/actuation spray,suspension 2 spray Intranasal HS RF: 0 atorvastatin 40 mg tablet 40 mg PO HS RF: 0 aspirin 81 mg Tablet,Delayed Release (Dr/Ec) 81 mg PO QAM RF: 0 magnesium oxide 400 mg (241.3 mg magnesium) Tablet 400 mg PO QAM RF: 0 multivitamin with minerals [Multiple Vitamin-Minerals] Tablet 1 tab PO QAM RF: 0 fluticasone propion-salmeterol [Advair Diskus] 250-50 mcg/dose blister with device 1 inh INHALATION BID RF: 0 acetaminophen 325 mg Tablet 650 mg PO Q6H MDD 3gm/24hr PRN (Reason: temp>100/PAIN) RF: 0 amiodarone 200 mg tablet 200 mg PO QAM RF: 0 metformin 500 mg Tablet 500 mg PO BID RF: 0 warfarin 4 mg Tablet 4 mg PO HS RF: 0 (DME) Skin Prep Wipes Misc MISCELLANEOUS RF: 0 acetic acid 0.25 % Solution 0.25 % irrigation BID RF: 0 Calmoseptine 0.44-20.6 % Ointment 1 applic TOPICAL TID RF: 0 Bactroban 2% 1 applic topical BID RF: 0 furosemide [Lasix] 40 mg tablet 40 mg PO BID RF: 0 ipratropium-albuterol 0.5 mg-3 mg(2.5 mg base)/3 mL solution for nebulization 3 ml INHALATION TID RF: 0 ferrous sulfate 325 mg (65 mg iron) tablet 325 mg PO QAM RF: 0 sitagliptin 50 mg tablet 50 mg PO QAM RF: 0 Lactinex 1 million cell Tablet,Chewable 1 tab PO QAM RF: 0 montelukast 10 mg Tablet 10 mg PO QAM RF: 0 albuterol sulfate [Ventolin HFA] 90 mcg/actuation HFA aerosol inhaler 2 puff INHALATION Q4 PRN (Reason: Shortness Of Breath Or Wheezing) RF: 0 magnesium hydroxide [Milk of Magnesia] 400 mg/5 mL Suspension 30 ml PO DAILY PRN (Reason: Constipation) RF: 0 levothyroxine 125 mcg Tablet 125 mcg PO DAILYBB RF: 0 bisacodyl [Dulcolax (bisacodyl)] 10 mg Suppository 10 mg AL DAILY PRN (Reason: Constipation) RF: 0 diclofenac sodium [Voltaren] 1 % Gel 4 g EXT QID Qty: 1 RF: 0 insulin lispro [Humalog U-100 Insulin] 100 unit/mL Solution 1 sliding scale dose SUBCUT USEASDIRECTD PRN (Reason: elevated bs) Qty: 0 RF: 0 metoprolol tartrate 25 mg tablet 12.5 mg PO Q12H Qty: 60 RF: 0 ipratropium-albuterol 0.5 mg-3 mg(2.5 mg base)/3 mL solution for nebulization 3 ml INHALATION .EVERY 2 HOURS PRN (Reason: Shortness Of Breath Or Wheezing) RF: 0 Discharge Orders: Discharge Order (Routine); Ordered 05/11/20 Ordered By: Kimber Ruffin/Other Patient Handouts: Managing Type 2 Diabetes Admission Data Admit Date/Time: 05/06/20 06:17 Attending Provider: Kimber Machado Admit Provider: Giovanna Avilez Primary Care Provider: Briseida Killian Other Providers: Giovanna Avilez Other Interventions: Discharge Summary Assessment (RN) Last Done: 05/11/20 14:15 Coding Level of Care Code D/C Day Management >30 mins Diagnoses Sepsis A41.51; R65.20; N17.0 Acute renal failure type: with acute tubular necrosis Sepsis acute organ dysfunction status: with acute organ dysfunction Sepsis type: Escherichia coli Severe sepsis acute organ dysfunction type: acute renal failure Severe sepsis shock status: without septic shock DIANNE (acute kidney injury) N17.9 Acute UTI N39.0 Elevated troponin R79.89 DM type 2 (diabetes mellitus, type 2) E11.9; Z79.4 Diabetes mellitus complication status: without complication Diabetes mellitus transfill technician insulin use: with transfill technician use Afib I48.91 Atrial fibrillation type: unspecified Hypothyroid E03.9 Hypothyroidism type: unspecified Proteinuria R80.9 Proteinuria type: unspecified Surgical wound, non healing T81.89XA Encounter type: initial encounter Asthma J45.909 Asthma complication type: unspecified Asthma persistence: unspecified Asthma severity: unspecified severity CVA (cerebral vascular accident) I63.9 CVA mechanism: unspecified Hypertension I10 Hypertension type: essential hypertension CHF (congestive heart failure) I50.32 Heart failure chronicity: chronic Heart failure type: diastolic Morbid obesity with body mass index of 50 or higher E66.01 Gastroparesis K31.84 Ovarian cyst, bilateral N83.201; N83.202 DVT prophylaxis Z29.9
[2020-05-11] MEDS: WARFARIN SOD 4 MG TAB PO SCH (15:14)
== END 2020-05-11 16:06 | DRG 871 ==
LOC: ED 03:32 → SUATTDRO 06:17 → 1E 06:17 → 2S 19:24